=== PATIENT | male | born 1960 | race Caucasian/White ===

== ENCOUNTER → 2016-12-18 | Outpatient (CLI) | payer OTHER, BC ==
[~2016-12-18] MED LIST: ASPI81TA28 PO; ATOR10TA88 PO; CALCIUM + D600 M1 PO; CHOL100010 PO; DLD2 PO; HYD10 PO; LANS30CA63 PO; LEVO50TA PO; LRS20 PO; METH750T PO; MIDO2.5T2 PO; MRLP17 PO; PRD/1 PO; PREG150C PO; SERT-234 PO; SPIR25TA PO; SULF800T23 PO; SYN175 PO; TESTOSTERONE 1% TOP; ZOLP10TA PO
--- NOTE | 2016-12-18 16:04 | DIAGNOSTIC IMAGING REPORT ---
BONE SCAN 3PHASE WHOLE BODY CLINICAL HISTORY: R HIP PAIN pain TECHNIQUE: Is examination is performed following the administration of 20.5 mCi technetium 99m MDP. COMPARISON STUDY: 05/28/2006 FINDINGS: Moderate degenerative activity throughout the entire thoracolumbar region. This is diminished compared to the prior study consistent with normal evolutionary change in a postoperative basis. Activity characteristics of the axial and appendicular skeleton are otherwise unremarkable. No abnormal activity characteristics are identified within the hip regions. There are no abnormal soft tissue activity characteristics. IMPRESSION: 1. No abnormal activity characteristics of the hips. 2. Improving postoperative activity of the thoracolumbar spine. The above report was generated using voice recognition software. It may contain grammatical, syntax or spelling errors. Electronically signed by: Josh Martino M.D. 12/18/2016 4:03 PM Dictated Date/Time: 12/18/2016 4:00 PM
== END | disposition home or self-care (01) ==
LOC: C.NUCL 11:39
DX: M25.551 Pain in right hip (principal)

== ENCOUNTER → 2017-05-18 | Outpatient (CLI) | payer OTHER, BC ==
[~2017-05-18] MED LIST changes: +ATOR10TA82 PO; -ATOR10TA88 PO
== END | disposition home or self-care (01) ==
LOC: C.LAB 12:17
DX: R50.9 Fever, unspecified (principal)

== ENCOUNTER 2017-05-21 13:03 | Inpatient (IN) | payer OTHER, BC ==
[~2017-05-21] VITALS: Ht 175.3 cm; Wt 123.6 kg
--- NOTE | 2017-05-21 13:51 | EMERGENCY ROOM VISIT NOTE ---
History First contact with patient: 13:13 Chief Complaint: WEAKNESS Stated Complaint: FLU,DEHYDRATED,TROUBLE BREATHING Nursing Triage Summary: see triage note History of Present Illness 56 year old male with hx of pituitary dysfunction s/p pituitary tumor removal presents to the ED with flu like symptoms x 6 days. Complaining of generalized weakness, diarrhea, occasionally productive cough and sob. Associated with fever (102), chills, decreased appetite and sleep, increased thirst, PITTS/ dizziness. Diarrhea has been loose/watery, non-bloody (5 episodes since yesterday). Denies cp, abdominal pain, n/v, constipation, dysuria, vision changes, focal neurologic deficits. Reports increasing prednisone and hydrocortisone dosage to stress dosage which did not help. He also went to see his PCP on Thursday. Flu swab was done which was negative for influenza A & B but he was started on Tamiflu, Levofloxacin 500mg x 10 days, Prednisone 20mg taper course and albuterol neb. Review of Systems see below Constitutional: + fever, + chills, + weakness Eyes: No worsening of vision ENT: No sore throat Respiratory: + cough, + sputum, + shortness of breath Cardiovascular: No chest pain Abdomen: + diarrhea, No pain, No nausea, No vomiting, No constipation Genitourinary - Male: No dysuria Neurologic: + problem reported (PITTS/dizziness), No weakness, No numbness/ tingling Past Medical/Surgical History Medical Problems: (1) Back pain (2) [place]'s disease (3) Pituitary tumor (4) Pneumonia Social History Smoking Status: Never Smoker Marital Status: Occupation Status: unemployed Current/Historical Medications Scheduled Aspirin (Aspirin Ec), 81 MG PO QPM Atorvastatin (Lipitor), 20 MG PO HS Baclofen (Baclofen), 20 MG PO QID Cholecalciferol (Vitamin D3), 1,000 UNITS PO DAILY Hydrocortisone (Cortef), 5 MG PO BID Lansoprazole (Prevacid), 30 MG PO QPM Levofloxacin (Levaquin), 500 MG PO DAILY Levothyroxine Sodium (Synthroid), 50 MCG PO QAM Levothyroxine Sodium (Synthroid), 175 MCG PO DAILY Liothyronine Sodium (Liothyronine Sodium), 5 MCG PO BID Methocarbamol (Robaxin), 750 MG PO QID Metoprolol Tartrate (Lopressor) (Lopressor), 25 MG PO TID Midodrine (Midodrine HCl), 10 MG PO BID Oseltamivir Phosphate (Tamiflu), 75 MG PO BID Prednisone (Prednisone), 3 MG PO QPM Prednisone (Prednisone), 20 MG PO DIRECTED Pregabalin (Lyrica), 150 MG PO BID Sertraline (Zoloft), 100 MG PO TID Spironolactone (Aldactone), 25 MG PO BID Sulfamethoxazole-Trimethoprim (Bactrim Ds 800MG/160MG), 1 TAB PO BID Zolpidem Tartrate (Ambien), 10 MG PO HS Scheduled PRN Albuterol Sulf (Albuterol Sulfate), 2.5 MG INH Q4H PRN for SOB/Wheezing Hydromorphone Hcl (Dilaudid), 4-8 MG PO Q2H PRN for Pain Polyethylene Glycol 3350 (Miralax), 17 GM PO DAILY PRN for Constipation Physical Exam Vital Signs Date Time Temp Pulse Resp B/P (MAP) Pulse Ox O2 Delivery O2 Flow Rate FiO2 05/21/17 13:06 36.4 71 16 123/72 92 Room Air Physical Exam see below General Appearance: + obese, + pertinent finding (fatigued) Head: normocephalic, atraumatic Eyes: normal inspection ENT: pharynx normal Neck: supple, no adenopathy Respiratory/Chest: normal breath sounds, + wheezing (expiratory wheezing) Cardiovascular: regular rate, rhythm, no murmur Abdomen / GI: normal bowel sounds, non tender, soft Back: + pertinent finding (surgical scar) Extremities: normal inspection, + slow capillary refill Neurologic/Psych: top edge beveler II-XII nml as tested, no motor/sensory deficits Medical Decision & Procedures Laboratory Results 05/21/17 13:40 Red Blood Count 4.96, Mean Corpuscular Volume 91.9, Mean Corpuscular Hemoglobin 30.6, Mean Corpuscular Hemoglobin Concent 33.3, Mean Platelet Volume 10.3, Neutrophils (%) (Auto) 88.1, Lymphocytes (%) (Auto) 6.4, Monocytes (%) (Auto) 3.7, Eosinophils (%) (Auto) 0.1, Basophils (%) (Auto) 0.2, Neutrophils # (Auto) 8.89, Lymphocytes # (Auto) 0.65, Monocytes # (Auto) 0.37, Eosinophils # (Auto) 0.01, Basophils # (Auto) 0.02 05/21/17 13:40 Test 05/21/17 13:40 05/21/17 14:00 05/21/17 14:04 White Blood Count 10.09 K/uL (4.8-10.8) Red Blood Count 4.96 M/uL (4.7-6.1) Hemoglobin 15.2 g/dL (14.0-18.0) Hematocrit 45.6 % (42-52) Mean Corpuscular Volume 91.9 fL (80-100) Mean Corpuscular Hemoglobin 30.6 pg (25-34) Mean Corpuscular Hemoglobin Concent 33.3 g/dl (32-36) Platelet Count 155 K/uL (130-400) Mean Platelet Volume 10.3 fL (7.4-10.4) Neutrophils (%) (Auto) 88.1 % Lymphocytes (%) (Auto) 6.4 % Monocytes (%) (Auto) 3.7 % Eosinophils (%) (Auto) 0.1 % Basophils (%) (Auto) 0.2 % Neutrophils # (Auto) 8.89 K/uL (1.4-6.5) Lymphocytes # (Auto) 0.65 K/uL (1.2-3.4) Monocytes # (Auto) 0.37 K/uL (0.11-0.59) Eosinophils # (Auto) 0.01 K/uL (0-0.5) Basophils # (Auto) 0.02 K/uL (0-0.2) RDW Standard Deviation 53.5 fL (36.4-46.3) RDW Coefficient of Variation 16.0 % (11.5-14.5) Immature Granulocyte % (Auto) 1.5 % Immature Granulocyte # (Auto) 0.15 K/uL (0.00-0.02) Anion Gap 11.0 mmol/L (3-11) Estimated GFR () 109.5 Estimated GFR (Non- 94.5 BUN/Creatinine Ratio 8.6 (10-20) Calcium Level 9.3 mg/dl (8.5-10.1) Total Bilirubin 0.7 mg/dl (0.2-1) Direct Bilirubin 0.1 mg/dl (0-0.2) Aspartate Amino Transf (AST/SGOT) 39 U/L (15-37) Alanine Aminotransferase (ALT/SGPT) 44 U/L (12-78) Alkaline Phosphatase 89 U/L (45-117) Troponin I < 0.015 ng/ml (0-0.045) Total Protein 7.2 gm/dl (6.4-8.2) Albumin 3.0 gm/dl (3.4-5.0) Lipase 247 U/L (73-393) Influenza Type A Antigen Neg for Influ A (NEG) Influenza Type B Antigen Neg for Influ B (NEG) Lactic Acid Level 1.7 mmol/L (0.4-2.0) Medications Administered Medications (Trade) Dose Ordered Sig/Efrain Route Start Time Stop Time Status Last Admin Dose Admin Levofloxacin (Levaquin / D5W) 750 mg NOW STAT IV 05/21/17 14:48 05/21/17 14:49 DC 05/21/17 15:18 750 MG Sodium Chloride 1,000 ml @ 999 mls/hr Q1H1M STAT IV 05/21/17 14:53 05/21/17 15:53 DC 05/21/17 15:19 999 MLS/HR Cefepime HCl 1000 mg/Dextrose 111 ml @ 200 mls/hr NOW STAT IV 05/21/17 14:57 05/21/17 15:30 DC 05/21/17 15:18 200 MLS/HR ED Course CXR: multifocal pneumonia, cardiomegaly EKG: NSR 64 Tropnin: neg <0.015 CMP: mildly elevated AST of 39 and mild hypokalemia 135 Lipase: normal CBC: L shift with normal WBC of 10.09 Lactic acid: 1.7 Given NS bolus 1L for dehydration Given a dose of Levofloxacin IV Admitted: Given multi-focal pneumonia in the setting of pituitary insufficiency on chronic steroids and significant generalized weakness/dehydration, admitted to the inpatient team for further care. Medical Decision 56y/oM with hx of pituitary dysfunction s/p pituitary tumor removal, chronic back pain and depression with 6 days of cold symptoms, weakness and diarrhea with normal vitals consistent with likely viral URI vs. viral gastroenteritis vs. dehydration vs. pneumonia vs. UTI vs. [place] -Ordered CXR, UA/UCx, EKG, Troponin, Influenza A/B antigen, CBC w/t diff, BMP, liver profile, lipase and lactic acid -Normal saline 1L bolus -Will follow up on test results and manage as indicated Impression Primary Impression: Pneumonia Departure Information Referrals Isaac Crenshaw Jr,D.O. (PCP) Patient Instructions My [facility]
--- NOTE | 2017-05-21 14:04 | DIAGNOSTIC IMAGING REPORT ---
CHEST ONE VIEW PORTABLE CLINICAL HISTORY: 56 years-old Male presenting with cough . TECHNIQUE: Portable upright AP view of the chest was obtained. COMPARISON: 12/26/2013. FINDINGS: Cardiac silhouette enlarged, slightly more prominent than on the prior exam likely due to AP technique. Interval development of patchy opacities primarily in the left lung though also minimally in the right mid to lung base. No large pleural effusion or pneumothorax. Surgical clips project over the right axilla. Extensive thoracolumbar posterior fusion. Kyphoplasty changes may also be present. Multiple left posterior lateral rib fractures are now evident, new from prior. Some demonstrate periosteal reaction suggesting subacute injuries. Upper abdomen normal. IMPRESSION: 1. Cardiomegaly. 2. Patchy bilateral pulmonary opacities, left greater than right. This is most concerning for multifocal pneumonia with less likely diagnostic considerations including pulmonary contusion or edema. 3. Multiple posterior lateral left rib fractures, which may be subacute. Correlate for point tenderness and clinical history. Electronically signed by: Bradly Ryan M.D. 05/21/2017 2:03 PM Dictated Date/Time: 05/21/2017 2:00 PM
[2017-05-21 14:09] LABS: BASO % 0.2 %; BASO ABS # 0.02 K/uL (0-0.2); EOS % 0.1 %; EOS ABS # 0.01 K/uL (0-0.5); HEMATOCRIT 45.6 % (42-52); HEMOGLOBIN 15.2 g/dL (14.0-18.0); IG# 0.15 K/uL (0.00-0.02); LYMPH % 6.4 %; LYMPH ABS # 0.65 K/uL (1.2-3.4); MEAN CELL VOLUME 91.9 fL (80-100); MEAN CORPUSCULAR HEMOGLOBIN 30.6 pg (25-34); MEAN CORPUSCULAR HGB CONC 33.3 g/dl (32-36); MEAN PLATELET VOLUME 10.3 fL (7.4-10.4); MONO % 3.7 %; MONO ABS # 0.37 K/uL (0.11-0.59); NEUT % 88.1 %; NEUT ABS # 8.89 K/uL (1.4-6.5); PLATELET COUNT 155 K/uL (130-400); RED CELL DISTRIBUTION WIDTH SD 53.5 fL (36.4-46.3); WHITE BLOOD COUNT 10.09 K/uL (4.8-10.8)
[2017-05-21 14:24] LABS: ALT/SGPT 44 U/L (12-78); AST/SGOT 39 U/L (15-37); BLOOD UREA NITROGEN 8 mg/dl (7-18); CALCIUM 9.3 mg/dl (8.5-10.1); CARBON DIOXIDE 22 mmol/L (21-32); GLUCOSE 84 mg/dl (70-99); LIPASE 247 U/L (73-393); POTASSIUM 4.2 mmol/L (3.5-5.1); SODIUM 135 mmol/L (136-145)
[2017-05-21 14:28] LABS: ALKALINE PHOSPHATASE 89 U/L (45-117); TOTAL PROTEIN 7.2 gm/dl (6.4-8.2)
[2017-05-21] MEDS ORDERED: VANCOMYCIN IV 2,750 MG in SODIUM CHLORIDE 0.9% 500ML 500 ML IV ONE (14:30)
[2017-05-21] MEDS ORDERED: LEVAQUIN 750MG / 150ML D5W IV STA (14:48)
[2017-05-21] MEDS ORDERED: SODIUM CHLORIDE 0.9% 1000ML 1,000 ML IV STA (14:53)
[2017-05-21] MEDS ORDERED: CEFEPIME IV 1,000 MG in DEXTROSE 5% 100ML 100 ML IV STA (14:57)
[2017-05-21 15:04] LABS: INFLUENZA B ANTIGEN Neg for Influ B (NEG)
[2017-05-21] MEDS ORDERED: GLUCOSE 10 TABS/TUBE PO PRN (15:30)
[2017-05-21] MEDS ORDERED: GLUCOSE 40% GEL 15 GM TUBE PO PRN (15:30)
[2017-05-21] MEDS ORDERED: DEXTROSE 50% 50 ML SYR IV PRN (15:30)
[2017-05-21] MEDS ORDERED: ALUMINUM/MAGNESIUM/SIMETH (MAALOX MAX) 30 ML UDC PO PRN (15:30)
[2017-05-21] MEDS ORDERED: GLUCAGON FOR INJ 1 MG VIAL SQ PRN (15:30)
[2017-05-21] MEDS ORDERED: MAGNESIUM HYDROXIDE SUSP 30 ML UDC PO PRN (15:30)
[2017-05-21] MEDS ORDERED: POLYETHYLENE (MIRALAX) 17 GM PACK PO PRN (15:30)
[2017-05-21] MEDS ORDERED: VANCOMYCIN IV 0 MG in SODIUM CHLORIDE 0.9% 500ML 500 ML IV SCH ×4 (15:30)
[2017-05-21] MEDS ORDERED: VANCOMYCIN IV SCH (15:30)
[2017-05-21] MEDS ORDERED: SODIUM CHLORIDE 0.9% IV SCH (15:30)
[2017-05-21] MEDS ORDERED: VTMD1000 PO (15:31)
[2017-05-21] MEDS ORDERED: LEVO175T PO (15:31)
[2017-05-21] MEDS ORDERED: OSEL75CA23 PO (15:31)
[2017-05-21] MEDS ORDERED: POLY335019 PO (15:31)
[2017-05-21] MEDS ORDERED: METO25TA56 PO (15:31)
[2017-05-21] MEDS ORDERED: HYDR5TAB PO (15:31)
[2017-05-21] MEDS ORDERED: HYDR4TAB78 PO (15:31)
[2017-05-21] MEDS ORDERED: PRED20TA PO (15:31)
[2017-05-21] MEDS ORDERED: LIOT5TAB9 PO (15:31)
[2017-05-21] MEDS ORDERED: PRMT10 PO (15:31)
[2017-05-21] MEDS ORDERED: LEVO1TAB33 PO (15:31)
[2017-05-21] MEDS ORDERED: LRS20 PO (15:31)
[2017-05-21] MEDS ORDERED: ALBINSX INH (15:31)
[2017-05-21] MEDS ORDERED: ATOR-22 PO (15:31)
[2017-05-21] MEDS ORDERED: VANCOMYCIN CONSULT ACTIVE PRN (15:45)
[2017-05-21] MEDS ORDERED: PATIENT'S HEIGHT AND/OR WEIGHT NEEDED SCH (15:45)
--- NOTE | 2017-05-21 16:43 | EMERGENCY ROOM VISIT NOTE ---
History Report prepared by Scribe: Antonia Mercado Under the Supervision of: Dr. Alen Waggoner D.O. First contact with patient: 13:16 Chief Complaint: WEAKNESS Stated Complaint: FLU,DEHYDRATED,TROUBLE BREATHING Nursing Triage Summary: see triage note History of Present Illness The patient is a 56 year old male who presents to the Emergency Room with complaints of persistent flu like symptoms for the past 6 days. He complains of an occasionally productive cough, post nasal drip, fever, chills, diarrhea, shortness of breath, increased weakness and a headache. Today the patient developed worsening shortness of breath and states he is having trouble breathing. He denies any chest pain. He saw his PCP 4 days ago and states he suspected influenza, but the influenza swab came back negative. He was prescribed Tamiflu, Prednisone and Albuterol. They have provided minimal relief. Pt denies change in vision, chest pain, nausea, vomiting, abdominal pain , pain with urination, and melena. His reports he has a history of a pituitary tumor and back problems. 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 A total of 10 systems reviewed and were otherwise negative. Past Medical & Surgical Medical Problems: (1) Back pain (2) [place]'s disease (3) Pituitary tumor (4) Pneumonia Social History Smoking Status: Never Smoker Smokeless Tobacco Use: No Alcohol Use: none Drug Use: none Marital Status: Housing Status: lives with family Occupation Status: unemployed, disabled Current/Historical Medications Scheduled Aspirin (Aspirin Ec), 81 MG PO QPM Atorvastatin (Lipitor), 20 MG PO HS Baclofen (Baclofen), 20 MG PO QID Cholecalciferol (Vitamin D3), 1,000 UNITS PO DAILY Hydrocortisone (Cortef), 5 MG PO BID Lansoprazole (Prevacid), 30 MG PO QPM Levofloxacin (Levaquin), 500 MG PO DAILY Levothyroxine Sodium (Synthroid), 50 MCG PO QAM Levothyroxine Sodium (Synthroid), 175 MCG PO DAILY Liothyronine Sodium (Liothyronine Sodium), 5 MCG PO BID Methocarbamol (Robaxin), 750 MG PO QID Metoprolol Tartrate (Lopressor) (Lopressor), 25 MG PO TID Midodrine (Midodrine HCl), 10 MG PO BID Oseltamivir Phosphate (Tamiflu), 75 MG PO BID Prednisone (Prednisone), 3 MG PO QPM Prednisone (Prednisone), 20 MG PO DIRECTED Pregabalin (Lyrica), 150 MG PO BID Sertraline (Zoloft), 100 MG PO TID Spironolactone (Aldactone), 25 MG PO BID Sulfamethoxazole-Trimethoprim (Bactrim Ds 800MG/160MG), 1 TAB PO BID Zolpidem Tartrate (Ambien), 10 MG PO HS Scheduled PRN Albuterol Sulf (Albuterol Sulfate), 2.5 MG INH Q4H PRN for SOB/Wheezing Hydromorphone Hcl (Dilaudid), 4-8 MG PO Q2H PRN for Pain Polyethylene Glycol 3350 (Miralax), 17 GM PO DAILY PRN for Constipation Allergies Coded Allergies: Iron Dextran (Verified Allergy, Severe, HIVES, 05/21/17) Cyclobenzaprine (Verified Allergy, Intermediate, N/V, 05/21/17) Physical Exam Vital Signs Date Time Temp Pulse Resp B/P (MAP) Pulse Ox O2 Delivery O2 Flow Rate FiO2 05/21/17 13:06 36.4 71 16 123/72 92 Room Air Physical Exam GENERAL: Laying in bed, alert, disheveled appearing, lethargic EYE EXAM: normal conjunctiva. PERRL and EOM's grossly intact. OROPHARYNX: no exudate, no erythema, lips, buccal mucosa, and tongue normal and mucous membranes are moist NECK: supple, no nuchal rigidity, no adenopathy, non-tender LUNGS: Clear to auscultation. Normal chest wall mechanics HEART: no murmurs, S1 normal and S2 normal ABDOMEN: abdomen soft, non-tender, normo-active bowel sounds, no masses, no rebound or guarding. BACK: Back is symmetrical on inspection and there is no deformity, no midline tenderness, no CVA tenderness. SKIN: no rashes and no bruising UPPER EXTREMITIES: upper extremities are grossly normal. LOWER EXTREMITIES: No pitting edema. NEURO EXAM: Normal sensorium, cranial nerves II-XII intact, normal speech, no weakness of arms, no weakness of legs. Medical Decision & Procedures ER Provider Diagnostic Interpretation: Radiology results as stated below per my review and the radiologist's interpretation: CHEST ONE VIEW PORTABLE CLINICAL HISTORY: 56 years-old Male presenting with cough . TECHNIQUE: Portable upright AP view of the chest was obtained. COMPARISON: 12/26/2013. FINDINGS: Cardiac silhouette enlarged, slightly more prominent than on the prior exam likely due to AP technique. Interval development of patchy opacities primarily in the left lung though also minimally in the right mid to lung base. No large pleural effusion or pneumothorax. Surgical clips project over the right axilla. Extensive thoracolumbar posterior fusion. Kyphoplasty changes may also be present. Multiple left posterior lateral rib fractures are now evident, new from prior. Some demonstrate periosteal reaction suggesting subacute injuries. Upper abdomen normal. IMPRESSION: 1. Cardiomegaly. 2. Patchy bilateral pulmonary opacities, left greater than right. This is most concerning for multifocal pneumonia with less likely diagnostic considerations including pulmonary contusion or edema. 3. Multiple posterior lateral left rib fractures, which may be subacute. Correlate for point tenderness and clinical history. Electronically signed by: Bradly Ryan M.D. 05/21/2017 2:03 PM Laboratory Results 05/21/17 13:40 Red Blood Count 4.96, Mean Corpuscular Volume 91.9, Mean Corpuscular Hemoglobin 30.6, Mean Corpuscular Hemoglobin Concent 33.3, Mean Platelet Volume 10.3, Neutrophils (%) (Auto) 88.1, Lymphocytes (%) (Auto) 6.4, Monocytes (%) (Auto) 3.7, Eosinophils (%) (Auto) 0.1, Basophils (%) (Auto) 0.2, Neutrophils # (Auto) 8.89, Lymphocytes # (Auto) 0.65, Monocytes # (Auto) 0.37, Eosinophils # (Auto) 0.01, Basophils # (Auto) 0.02 05/21/17 13:40 Test 05/21/17 13:40 05/21/17 14:00 05/21/17 14:04 05/21/17 16:00 White Blood Count 10.09 K/uL (4.8-10.8) Red Blood Count 4.96 M/uL (4.7-6.1) Hemoglobin 15.2 g/dL (14.0-18.0) Hematocrit 45.6 % (42-52) Mean Corpuscular Volume 91.9 fL (80-100) Mean Corpuscular Hemoglobin 30.6 pg (25-34) Mean Corpuscular Hemoglobin Concent 33.3 g/dl (32-36) Platelet Count 155 K/uL (130-400) Mean Platelet Volume 10.3 fL (7.4-10.4) Neutrophils (%) (Auto) 88.1 % Lymphocytes (%) (Auto) 6.4 % Monocytes (%) (Auto) 3.7 % Eosinophils (%) (Auto) 0.1 % Basophils (%) (Auto) 0.2 % Neutrophils # (Auto) 8.89 K/uL (1.4-6.5) Lymphocytes # (Auto) 0.65 K/uL (1.2-3.4) Monocytes # (Auto) 0.37 K/uL (0.11-0.59) Eosinophils # (Auto) 0.01 K/uL (0-0.5) Basophils # (Auto) 0.02 K/uL (0-0.2) RDW Standard Deviation 53.5 fL (36.4-46.3) RDW Coefficient of Variation 16.0 % (11.5-14.5) Immature Granulocyte % (Auto) 1.5 % Immature Granulocyte # (Auto) 0.15 K/uL (0.00-0.02) Anion Gap 11.0 mmol/L (3-11) Estimated GFR () 109.5 Estimated GFR (Non- 94.5 BUN/Creatinine Ratio 8.6 (10-20) Calcium Level 9.3 mg/dl (8.5-10.1) Total Bilirubin 0.7 mg/dl (0.2-1) Direct Bilirubin 0.1 mg/dl (0-0.2) Aspartate Amino Transf (AST/SGOT) 39 U/L (15-37) Alanine Aminotransferase (ALT/SGPT) 44 U/L (12-78) Alkaline Phosphatase 89 U/L (45-117) Troponin I < 0.015 ng/ml (0-0.045) Total Protein 7.2 gm/dl (6.4-8.2) Albumin 3.0 gm/dl (3.4-5.0) Lipase 247 U/L (73-393) Procalcitonin 0.57 ng/ml (0-0.5) Influenza Type A Antigen Neg for Influ A (NEG) Influenza Type B Antigen Neg for Influ B (NEG) Lactic Acid Level 1.7 mmol/L (0.4-2.0) Urine Color YELLOW Urine Appearance CLEAR (CLEAR) Urine pH 8.5 (4.5-7.5) Urine Specific [place] 1.010 (1.000-1.030) Urine Protein NEG (NEG) Urine Glucose (UA) NEG (NEG) Urine Ketones TRACE (NEG) Urine Occult Blood NEG (NEG) Urine Nitrite NEG (NEG) Urine Bilirubin NEG (NEG) Urine Urobilinogen NEG (NEG) Urine Leukocyte Esterase NEG (NEG) Urine WBC (Auto) 0 /hpf (0-5) Urine RBC (Auto) 0-4 /hpf (0-4) Urine Hyaline Casts (Auto) 0 /lpf (0-5) Urine Epithelial Cells (Auto) 0-5 /lpf (0-5) Urine Bacteria (Auto) NEG (NEG) Laboratory results per my review. Medications Administered Medications (Trade) Dose Ordered Sig/Efrain Route Start Time Stop Time Status Last Admin Dose Admin Levofloxacin (Levaquin / D5W) 750 mg NOW STAT IV 05/21/17 14:48 05/21/17 14:49 DC 05/21/17 15:18 750 MG Sodium Chloride 1,000 ml @ 999 mls/hr Q1H1M STAT IV 05/21/17 14:53 05/21/17 15:53 DC 05/21/17 15:19 999 MLS/HR Cefepime HCl 1000 mg/Dextrose 111 ml @ 200 mls/hr NOW STAT IV 05/21/17 14:57 05/21/17 15:30 DC 05/21/17 15:18 200 MLS/HR ECG Indication: SOB/dyspnea Rate (beats per minute): 64 Rhythm: sinus rhythm Findings: other (normal axis, poor baseline) ED Course ED COURSE: Vital signs were reviewed and showed the patient is tachycardic The patients medical record was reviewed The above diagnostic studies were performed and reviewed. ED treatments and interventions as stated above. 1339: The patient was evaluated in room B7. A complete history and physical examination was performed. 1448: Levaquin 750 mg IV. 1453: NSS 1000 ml @ 999 mls/hr IV. 1457: Cefepime HCl 1000 mg/Dextrose 111 ml @ 200 mls/hr IV. 1515: I discussed the patients case with Dr. Owens [facility] Hospitalist. The patient will be further evaluated. 1337: Upon reevaluation, the patient is B7.I discussed my findings with the patient and he understands and agrees with the treatment plan. Based on the patients age, coexisting illnesses, exam and lab findings the decision to treat as an inpatient was made. The patient remained stable while under my care. The patient will be evaluated for further management. Medical Decision Differential diagnoses includes but is not limited to pneumonia, bronchitis, COPD/Asthma exacerbation, pneumothorax, pulmonary embolism, congestive heart failure, acute coronary syndrome. Patient is a 56-year-old female who presents to ER for weakness associated with dehydration, fevers, chills, shortness breath diffuse weakness. Vitals were unremarkable. Chest x-ray shows a multilobar pneumonia. Patient was given IV Levaquin and cefepime. Patient was given a bolus normal saline. Patient was seen independently of the resident. CBC all BMP, LFTs, bilirubin and troponin was negative. Lipase is normal. Once was negative. UA was negative. Patient was updated at bedside admits internal medicine for multilobar pneumonia in an immune compromised patient taking steroids. Medication Reconcilliation Current Medication List: was personally reviewed by me Blood Pressure Screening Patient's blood pressure: Normal blood pressure Consults Time Called: 1510 Consulting Physician: Dr. Owens [facility] Hospitalist Returned Call: 1515 I discussed the patients case with Dr. Owens [facility] Hospitalist. The patient will be further evaluated. Impression Primary Impression: Pneumonia Scribe Attestation The scribe's documentation has been prepared under my direction and personally reviewed by me in its entirety. I confirm that the note above accurately reflects all work, treatment, procedures, and medical decision making performed by me. Departure Information Dispostion Being Evaluated By Hospitalist Referrals Isaac Crenshaw Jr,D.O. (PCP) Patient Instructions My [facility] Problem Qualifiers Primary Impression: Pneumonia Pneumonia type: due to unspecified organism Laterality: unspecified laterality Lung location: unspecified part of lung Qualified Codes: J18.9 - Pneumonia, unspecified organism
[2017-05-21 16:55] VITALS: Ht 175.3 cm; Wt 123.6 kg
[2017-05-21] MEDS: SODIUM CHLORIDE 0.9% 1000ML 1,000 ML IV SCH (17:26)
[2017-05-21] MEDS ORDERED: ALBUTEROL 0.083% NEBU SOLN 3 ML VIAL INH PRN (17:30)
[2017-05-21] MEDS ORDERED: NON-FORMULARY MEDICATION (Polyethylene Glycol 3350 (Miralax) 17 GM) PO PRN (17:30)
--- NOTE | 2017-05-21 17:30 | NUR ---
A: Admitted from ED into 286-2. Oriented to room and call casey system. A&Ox4. OOB with assistance. Denies chest pain/SOB. C/o chronic back pain, PO Dilaudid administered. Presents with normal sinus rhythm on monitor. Call casey within reach
[2017-05-21] MEDS ORDERED: HYDROmorphone HCL 2 MG TAB ONE (17:39)
--- NOTE | 2017-05-21 17:50 | History and Physical ---
History & Physical Date & Time of Service: May 21, 2017 at 17:37 Chief Complaint: Pneumonia Primary Care Physician: Isaac Crenshaw Jr,D.O. History of Present Illness Source: patient, partner 66 year old man with past medical history of pituitary resection by a second procedure , gamma knife resection stain has been on hormonal replacement therapy for those steroids. Patient presented to the ED and shortness of breath/fever chills. Patient was given Tamiflu as an outpatient finished 4 days. The is 1 day left. Rapid flu was negative as an outpatient and in ED After the Patient was given levofloxacin only took 1 dose Chest x-ray showed multilobar bilateral pneumonia. Patient said that she is unable to cough up sputum Denies chest pain Denies Smoking or drinking History of heart disease in his father Social History Smoking Status: Never Smoker Smokeless Tobacco Use: No Drug Use: none Marital Status: Housing status: lives with family Occupational Status: unemployed, disabled Immunizations History of Influenza Vaccine: Yes Influenza Vaccine Date: Mar 21, 2008 History of Tetanus Vaccine?: Yes Tetanus Immunization Date: Sep 07, 2004 History of Pneumococcal: Yes Pneumococcal Date: Mar 21, 2008 History of Hepatitis B Vaccine: Yes Multi-Drug Resistant Organisms History of MDRO: Yes Type of MDRO: MRSA Allergies Coded Allergies: Iron Dextran (Verified Allergy, Severe, HIVES, 05/21/17) Cyclobenzaprine (Verified Allergy, Intermediate, N/V, 05/21/17) Home Medications Scheduled Aspirin (Aspirin Ec), 81 MG PO QPM Atorvastatin (Lipitor), 20 MG PO HS Baclofen (Baclofen), 20 MG PO QID Cholecalciferol (Vitamin D3), 1,000 UNITS PO DAILY Hydrocortisone (Cortef), 5 MG PO BID Lansoprazole (Prevacid), 30 MG PO QPM Levofloxacin (Levaquin), 500 MG PO DAILY Levothyroxine Sodium (Synthroid), 50 MCG PO QAM Levothyroxine Sodium (Synthroid), 175 MCG PO DAILY Liothyronine Sodium (Liothyronine Sodium), 5 MCG PO BID Methocarbamol (Robaxin), 750 MG PO QID Metoprolol Tartrate (Lopressor) (Lopressor), 25 MG PO TID Midodrine (Midodrine HCl), 10 MG PO BID Oseltamivir Phosphate (Tamiflu), 75 MG PO BID Prednisone (Prednisone), 3 MG PO QPM Prednisone (Prednisone), 20 MG PO DIRECTED Pregabalin (Lyrica), 150 MG PO BID Sertraline (Zoloft), 100 MG PO TID Spironolactone (Aldactone), 25 MG PO BID Sulfamethoxazole-Trimethoprim (Bactrim Ds 800MG/160MG), 1 TAB PO BID Zolpidem Tartrate (Ambien), 10 MG PO HS Scheduled PRN Albuterol Sulf (Albuterol Sulfate), 2.5 MG INH Q4H PRN for SOB/Wheezing Hydromorphone Hcl (Dilaudid), 4-8 MG PO Q2H PRN for Pain Polyethylene Glycol 3350 (Miralax), 17 GM PO DAILY PRN for Constipation Review of Systems Constitutional: + fever, + chills, + weakness, + fatigue, No sweats, No weight loss, No problem reported Eyes: No worsening of vision, No eye pain, No redness, No discharge, No diplopia, No problem reported ENT: No hearing loss, No unusual epistaxis, No nasal symptoms, No sore throat, No tinnitus, No dental problems, No trouble swallowing, No problem reported Respiratory: + cough, + sputum, + shortness of breath, + dyspnea on exertion, + dyspnea at rest, No wheezing, No hemoptysis, No problem reported Cardiovascular: No chest pain, No orthopnea, No PND, No edema, No claudication , No palpitations, No problem reported Abdomen: No pain, No nausea, No vomiting, No diarrhea, No constipation, No GI bleeding, No problem reported Musculoskeletal: No joint pain, No muscle pain, No swelling, No calf pain, No problem reported Genitourinary - Male: No hematuria, No dysuria, No urinary frequency, No urinary urgency, No urinary hesitancy, No urinary retention, No urinary incontinence, No penile discharge, No lesions, No impotence, No problem reported Neurologic: No memory loss, No paralysis, No weakness, No numbness/tingling, No vertigo, No balance problems, No problem reported Psychiatric: No depression symptoms, No anhedonism, No anxiety, No insomnia, No substance abuse, No problem reported Endocrine: No fatigue, No excessive thirst, No excessive urination, No problem reported Hematologic / Lymphatic: No abnormal bleeding/bruising, No clotting problems, No swollen lymph nodes, No night sweats, No problem reported Integumentary: No rash, No itch, No new/changing skin lesions, No color change , No bleeding, No problem reported Physical Exam Vital Signs Date Time Temp Pulse Resp B/P (MAP) Pulse Ox O2 Delivery O2 Flow Rate FiO2 05/21/17 16:57 36.4 75 18 131/73 94 05/21/17 16:55 Room Air 05/21/17 16:52 75 18 131/73 92 Room Air 05/21/17 13:06 36.4 71 16 123/72 92 Room Air General Appearance: + mild distress, + obese Head: normocephalic, atraumatic Eyes: normal inspection, EOMI ENT: normal ENT inspection, hearing grossly normal, + nasal congestion Neck: supple Respiratory/Chest: chest non-tender, + decreased breath sounds, + accessory muscle use, + crackles Cardiovascular: regular rate, rhythm, no edema, no gallop, no JVD, no murmur, normal peripheral pulses Abdomen/GI: normal bowel sounds, non tender, soft, no organomegaly, no pulsatile mass Back: normal inspection Extremities/Musculoskelatal: normal inspection, no calf tenderness, normal capillary refill, no pedal edema, normal range of motion Neurologic/Psych: gi tech II-XII nml as tested, no motor/sensory deficits, alert, normal mood/affect, normal reflexes, oriented x 3 Skin: normal color, warm/dry, no rash Diagnostics Laboratory Results Results Past 24 Hours Test 05/21/17 13:40 05/21/17 14:00 05/21/17 14:04 05/21/17 16:00 Range/Units White Blood Count 10.09 4.8-10.8 K/uL Red Blood Count 4.96 4.7-6.1 M/uL Hemoglobin 15.2 14.0-18.0 g/dL Hematocrit 45.6 42-52 % Mean Corpuscular Volume 91.9 80-100 fL Mean Corpuscular Hemoglobin 30.6 25-34 pg Mean Corpuscular Hemoglobin Concent 33.3 32-36 g/dl Platelet Count 155 130-400 K/uL Mean Platelet Volume 10.3 7.4-10.4 fL Neutrophils (%) (Auto) 88.1 % Lymphocytes (%) (Auto) 6.4 % Monocytes (%) (Auto) 3.7 % Eosinophils (%) (Auto) 0.1 % Basophils (%) (Auto) 0.2 % Neutrophils # (Auto) 8.89 1.4-6.5 K/uL Lymphocytes # (Auto) 0.65 1.2-3.4 K/uL Monocytes # (Auto) 0.37 0.11-0.59 K/uL Eosinophils # (Auto) 0.01 0-0.5 K/uL Basophils # (Auto) 0.02 0-0.2 K/uL RDW Standard Deviation 53.5 36.4-46.3 fL RDW Coefficient of Variation 16.0 11.5-14.5 % Immature Granulocyte % (Auto) 1.5 % Immature Granulocyte # (Auto) 0.15 0.00-0.02 K/uL Sodium Level 135 136-145 mmol/L Potassium Level 4.2 3.5-5.1 mmol/L Chloride Level 102 98-107 mmol/L Carbon Dioxide Level 22 21-32 mmol/L Anion Gap 11.0 3-11 mmol/L Blood Urea Nitrogen 8 7-18 mg/dl Creatinine 0.90 0.60-1.40 mg/dl Estimated GFR () 109.5 Estimated GFR (Non- 94.5 BUN/Creatinine Ratio 8.6 10-20 Random Glucose 84 70-99 mg/dl Calcium Level 9.3 8.5-10.1 mg/dl Total Bilirubin 0.7 0.2-1 mg/dl Direct Bilirubin 0.1 0-0.2 mg/dl Aspartate Amino Transf (AST/SGOT) 39 15-37 U/L Alanine Aminotransferase (ALT/SGPT) 44 12-78 U/L Alkaline Phosphatase 89 45-117 U/L Troponin I < 0.015 0-0.045 ng/ml Total Protein 7.2 6.4-8.2 gm/dl Albumin 3.0 3.4-5.0 gm/dl Lipase 247 73-393 U/L Procalcitonin 0.57 0-0.5 ng/ml Influenza Type A Antigen Neg for Influ A NEG Influenza Type B Antigen Neg for Influ B NEG Lactic Acid Level 1.7 0.4-2.0 mmol/L Urine Color YELLOW Urine Appearance CLEAR CLEAR Urine pH 8.5 4.5-7.5 Urine Specific [place] 1.010 1.000-1.030 Urine Protein NEG NEG Urine Glucose (UA) NEG NEG Urine Ketones TRACE NEG Urine Occult Blood NEG NEG Urine Nitrite NEG NEG Urine Bilirubin NEG NEG Urine Urobilinogen NEG NEG Urine Leukocyte Esterase NEG NEG Urine WBC (Auto) 0 0-5 /hpf Urine RBC (Auto) 0-4 0-4 /hpf Urine Hyaline Casts (Auto) 0 0-5 /lpf Urine Epithelial Cells (Auto) 0-5 0-5 /lpf Urine Bacteria (Auto) NEG NEG Microbiology Results 05/21/17 Blood Culture, Ordered Pending 05/21/17 Blood Culture, Received Pending Impression Assessment and Plan 56 year male history of pituitary adenoma, status post resection currently on replacement therapy and steroids Presented with cough/fever/shortness of breath Chest x-ray revealed bilateral multilobar pneumonia Assessment Shortness of breath/respiratory distress secondary to bilateral multilobar pneumonia Immunocompromise status History of pituitary adenoma status post resection Chronic steroids use History of osteoporosis/multiple fractures and surgeries History of osteomyelitis Chronic opioid dependence Plan Giving his immunocompromise status we'll treat him aggressively with antibiotics Continue Tamiflu Start him empirically on vancomycin/ceftriaxone/azithromycin Sputum Culture/blood culture Obtain urine Legionella/Legionella sputum culture Obtain mycoplasma IgM Guaifenesin Continue home medications including oral steroids, currently does not appear to require stress does steroids Continue supportive care DVT prophylaxis Patient is full code Plan was discussed with patient and his Advanced Directives Existing Living Will: Yes Existing Power of Ui Lead Developer: Yes Resuscitation Status FULL RESUSCITATION VTE Prophylaxis VTE Risk Assessment Done? Y/N: Yes Risk Level: Moderate Note Total Time: Critical Care 30 - 74 minutes
[2017-05-21] MEDS ORDERED: GUAIFENESIN SUGAR FREE 200 MG/10 ML UDC PO PRN (18:00)
[2017-05-21] MEDS: MIDODRINE 10 MG TAB PO SCH (18:00)
[2017-05-21 19:04] VITALS: BP 148/79; PULSE 65; TEMP 36.9; O2SAT 93
[2017-05-21 19:49] LABS: INR 1.1 (0.9-1.1); PTT PATIENT 27.8 SECONDS (21.0-31.0)
[2017-05-21 20:00] VITALS: O2SAT 93
--- NOTE | 2017-05-21 20:00 | NUR ---
A: Pt alert and oriented. Assessment completed, pt complains of weakness, cough, chronic back pain, and lethargy at this time. Vanco infusing along with IVF as ordered. Medicated as ordered. NSR noted on the monitor. VSS on RA. BSG of 70, OJ, PB and crackers given. Recheck of 88, Dr. Martínez notified. Ordered to hold Insulin. Will spot check through shift. Call casey left within reach, will continue to monitor.
--- NOTE | 2017-05-21 20:49 | Pharmacy Progress Note ---
Pharmacy Antibiotic Consult Date of Service: May 21, 2017. Pharmacy Dosing Scope Pharmacy is consulted to initiate vancomycin IV dosing therapy, order appropriate labs and adjust drug dose/frequency. Subjective The patient is a 56 year old male admitted on May 21, 2017 at 15:27. Objective Height (Feet): 5 Height (Inches): 9.00 Weight (Kilograms): 124.000 Lab Results (24hrs): Test 05/21/17 13:40 05/21/17 14:00 05/21/17 14:04 05/21/17 16:00 White Blood Count 10.09 K/uL (4.8-10.8) Red Blood Count 4.96 M/uL (4.7-6.1) Hemoglobin 15.2 g/dL (14.0-18.0) Hematocrit 45.6 % (42-52) Mean Corpuscular Volume 91.9 fL (80-100) Mean Corpuscular Hemoglobin 30.6 pg (25-34) Mean Corpuscular Hemoglobin Concent 33.3 g/dl (32-36) Platelet Count 155 K/uL (130-400) Mean Platelet Volume 10.3 fL (7.4-10.4) Neutrophils (%) (Auto) 88.1 % Lymphocytes (%) (Auto) 6.4 % Monocytes (%) (Auto) 3.7 % Eosinophils (%) (Auto) 0.1 % Basophils (%) (Auto) 0.2 % Neutrophils # (Auto) 8.89 K/uL (1.4-6.5) Lymphocytes # (Auto) 0.65 K/uL (1.2-3.4) Monocytes # (Auto) 0.37 K/uL (0.11-0.59) Eosinophils # (Auto) 0.01 K/uL (0-0.5) Basophils # (Auto) 0.02 K/uL (0-0.2) RDW Standard Deviation 53.5 fL (36.4-46.3) RDW Coefficient of Variation 16.0 % (11.5-14.5) Immature Granulocyte % (Auto) 1.5 % Immature Granulocyte # (Auto) 0.15 K/uL (0.00-0.02) Prothrombin Time 11.1 SECONDS (9.0-12.0) Prothromb Time International Ratio 1.1 (0.9-1.1) Activated Partial Thromboplast Time 27.8 SECONDS (21.0-31.0) Partial Thromboplastin Ratio 1.1 Sodium Level 135 mmol/L (136-145) Potassium Level 4.2 mmol/L (3.5-5.1) Chloride Level 102 mmol/L (98-107) Carbon Dioxide Level 22 mmol/L (21-32) Anion Gap 11.0 mmol/L (3-11) Blood Urea Nitrogen 8 mg/dl (7-18) Creatinine 0.90 mg/dl (0.60-1.40) Estimated GFR () 109.5 Estimated GFR (Non- 94.5 BUN/Creatinine Ratio 8.6 (10-20) Random Glucose 84 mg/dl (70-99) Calcium Level 9.3 mg/dl (8.5-10.1) Total Bilirubin 0.7 mg/dl (0.2-1) Direct Bilirubin 0.1 mg/dl (0-0.2) Aspartate Amino Transf (AST/SGOT) 39 U/L (15-37) Alanine Aminotransferase (ALT/SGPT) 44 U/L (12-78) Alkaline Phosphatase 89 U/L (45-117) Troponin I < 0.015 ng/ml (0-0.045) Total Protein 7.2 gm/dl (6.4-8.2) Albumin 3.0 gm/dl (3.4-5.0) Lipase 247 U/L (73-393) Procalcitonin 0.57 ng/ml (0-0.5) Influenza Type A Antigen Neg for Influ A (NEG) Influenza Type B Antigen Neg for Influ B (NEG) Lactic Acid Level 1.7 mmol/L (0.4-2.0) Urine Color YELLOW Urine Appearance CLEAR (CLEAR) Urine pH 8.5 (4.5-7.5) Urine Specific [place] 1.010 (1.000-1.030) Urine Protein NEG (NEG) Urine Glucose (UA) NEG (NEG) Urine Ketones TRACE (NEG) Urine Occult Blood NEG (NEG) Urine Nitrite NEG (NEG) Urine Bilirubin NEG (NEG) Urine Urobilinogen NEG (NEG) Urine Leukocyte Esterase NEG (NEG) Urine WBC (Auto) 0 /hpf (0-5) Urine RBC (Auto) 0-4 /hpf (0-4) Urine Hyaline Casts (Auto) 0 /lpf (0-5) Urine Epithelial Cells (Auto) 0-5 /lpf (0-5) Urine Bacteria (Auto) NEG (NEG) Assessment & Plan Patient started on vancomycin for possible pneumonia. BC x 2 are pending. Vancomycin: * LD of vancomycin 2750 mg x 1 (~22mg/kg) * Will start MD of vancomycin 1750 mg iv q 12 hrs to achieve an estimated trough ~15-20 mcg/ml (goal for pneumonia) * Will order trough prior to the 0400 dose on 05/23 to ensure therapeutic (note , this will be before steady state, however patient with elevated BMI therefore may be at risk for accumulation) * Estimated kinetics: t1/2~9 hrs, ke~0.079 hr-1, CrCl ~90 ml/min Pharmacy will continue to follow and will adjust dose/frequency as necessary. Thank you
[2017-05-21] MEDS: INSULIN ASPART 100 UNITS/ML 3 ML PEN SC SCH (21:00)
[2017-05-21] MEDS ORDERED: OSELTAMIVIR PHOSPHATE 75 MG CAP PO SCH (21:00)
[2017-05-21] MEDS ORDERED: INFLUENZA ADMINISTRATION CHARGE ONE (21:15)
[2017-05-21] MEDS ORDERED: INFLUENZA VIRUS QUAD VACCINE 0.5 ML SYR IM. ONE (21:15)
[2017-05-21] MEDS: LIOTHYRONINE SODIUM 5 MCG TAB PO SCH (21:25)
[2017-05-21] MEDS: METHOCARBAMOL 750 MG TAB PO SCH (21:25)
[2017-05-21] MEDS: SERTRALINE HCL 50 MG TAB PO SCH (21:26)
[2017-05-21] MEDS: PANTOprazole SOD 40 MG TAB PO SCH (21:26)
[2017-05-21] MEDS: OSELTAMIVIR PHOSPHATE 75 MG CAP PO SCH (21:27)
[2017-05-21] MEDS: HYDROCORTISONE 10 MG TAB PO SCH (21:27)
[2017-05-21] MEDS: ASPIRIN 81 MG ECTAB PO SCH (21:28)
[2017-05-21] MEDS: BACLOFEN TAB 20 MG TAB PO SCH (21:28)
[2017-05-21] MEDS: ATORVASTATIN 20 MG TAB PO SCH (21:28)
[2017-05-21] MEDS: METOPROLOL TARTRATE 25 MG TAB PO SCH (21:29)
[2017-05-21] MEDS: ZOLPIDEM TARTRATE 10 MG TAB PO SCH (21:31)
[2017-05-21] MEDS: PREGABALIN 150 MG CAP PO SCH (21:35)
[2017-05-21] MEDS: ENOXAPARIN 40 MG/0.4 ML SYR SC SCH (22:29)
[2017-05-21] MEDS: HYDROmorphone HCL 2 MG TAB PO PRN (22:30)
[2017-05-21] MEDS: CEFEPIME IV 2,000 MG in SYRINGE 7.5 ML IV SCH (22:38)
[2017-05-21] MEDS ORDERED: CEFEPIME IV 2,000 MG in SYRINGE 7.5 ML IV SCH (23:00)
[2017-05-21 23:30] VITALS: BP 147/75; PULSE 77; TEMP 37; O2SAT 88
[2017-05-22] VITALS (9 sets, daily range): BP systolic 116–144; BP diastolic 68–77; PULSE 51–65; TEMP 36.5–36.7; O2SAT 91–96
--- NOTE | 2017-05-22 | NUR ---
A: Pt alert and oriented x4. Monitoring BSGs PRN. Assessment unchanged, pain controlled at this time. Placed on 2L O2 d/t O2 88% on RA. IVF continue to infuse. Contact precautions in place. Receiving intermittent antibiotics. NSR noted on the monitor. Will continue to monitor.
[2017-05-22] MEDS: ACETAMINOPHEN 325 MG TAB PO PRN ×3 (02:29→12:44)
[2017-05-22] MEDS: VANCOMYCIN IV 1,750 MG in SODIUM CHLORIDE 0.9% 500ML 500 ML IV SCH ×2 (02:29→16:03)
[2017-05-22] MEDS ORDERED: COUGH DROP (SUGAR FREE) LOZ 24 LOZ/1 BOX PO PRN (02:45)
--- NOTE | 2017-05-22 04:00 | NUR ---
A: Pt alert and oriented. Resting in bed. Assessment completed, complains of headache and chronic back pain. Pt given PRN Tylenol. Will reassess as directed. IVF infusing as ordered, along with intermittent IV antibiotics. VSS on 2L O2. NSR noted on the monitor with no tele events noted. MRSA swab and Urine sent to lab for testing. Call casey left within reach of pt, rings appropriately for assistance.
[2017-05-22] MEDS: SODIUM CHLORIDE 0.9% 1000ML 1,000 ML IV SCH ×2 (04:18→17:58)
[2017-05-22 05:55] LABS: BASO % 0.1 %; BASO ABS # 0.01 K/uL (0-0.2); EOS % 0.3 %; EOS ABS # 0.03 K/uL (0-0.5); HEMATOCRIT 42.5 % (42-52); IG# 0.28 K/uL (0.00-0.02); LYMPH % 10.1 %; LYMPH ABS # 1.07 K/uL (1.2-3.4); MEAN CORPUSCULAR HEMOGLOBIN 30.3 pg (25-34); MEAN CORPUSCULAR HGB CONC 32.9 g/dl (32-36); MEAN PLATELET VOLUME 9.8 fL (7.4-10.4); MONO % 5.6 %; NEUT % 81.3 %; NEUT ABS # 8.64 K/uL (1.4-6.5); PLATELET COUNT 134 K/uL (130-400); RED CELL DISTRIBUTION WIDTH SD 53.6 fL (36.4-46.3); WHITE BLOOD COUNT 10.63 K/uL (4.8-10.8)
[2017-05-22] MEDS: INSULIN ASPART 100 UNITS/ML 3 ML PEN SC SCH ×4 (06:30→20:53)
[2017-05-22 06:32] LABS: ALBUMIN 2.5 gm/dl (3.4-5.0); CALCIUM 8.5 mg/dl (8.5-10.1); CREATININE 0.69 mg/dl (0.60-1.40)
[2017-05-22] MEDS: LEVOTHYROXINE 175 MCG TAB PO SCH (06:33)
[2017-05-22] MEDS: LEVOTHYROXINE 50 MCG TAB PO SCH (06:33)
[2017-05-22 06:53] LABS: HEMOGLOBIN A1C 5.4 % (4.5-5.6)
[2017-05-22] MEDS: CEFEPIME IV 2,000 MG in SYRINGE 7.5 ML IV SCH ×3 (07:00→22:45)
[2017-05-22] MEDS: METHOCARBAMOL 750 MG TAB PO SCH ×4 (07:51→20:51)
[2017-05-22] MEDS: PREGABALIN 150 MG CAP PO SCH ×2 (07:52→20:55)
[2017-05-22] MEDS: HYDROmorphone HCL 2 MG TAB PO PRN ×3 (07:52→20:56)
[2017-05-22] MEDS: MIDODRINE 10 MG TAB PO SCH ×2 (07:52→18:00)
[2017-05-22] MEDS: METOPROLOL TARTRATE 25 MG TAB PO SCH ×3 (07:53→20:49)
[2017-05-22] MEDS: BACLOFEN TAB 20 MG TAB PO SCH ×4 (07:53→20:52)
[2017-05-22] MEDS: OSELTAMIVIR PHOSPHATE 75 MG CAP PO SCH ×2 (07:54→20:50)
[2017-05-22] MEDS: LACTOBACILLUS ACIDOPHILUS 1 GM PACK PO SCH ×3 (07:54→18:00)
[2017-05-22] MEDS: LIOTHYRONINE SODIUM 5 MCG TAB PO SCH ×2 (07:54→20:50)
[2017-05-22] MEDS: HYDROCORTISONE 10 MG TAB PO SCH ×2 (07:55→20:52)
[2017-05-22] MEDS: SERTRALINE HCL 50 MG TAB PO SCH ×2 (07:56→20:49)
--- NOTE | 2017-05-22 08:00 | NUR ---
A: Pt is A&O x4. VSS on 2L nasal cannula. Denies chest pain. C/O SOB with movement. Pt tolerating diet with poor appetite. Pt is resting in bed. NSR on monitor. NSS infusing per order. Q1H rounding. Call casey within reach. Will continue to monitor.
[2017-05-22] MEDS: AZITHROMYCIN IV 500 MG in DEXTROSE 5% 250ML 250 ML IV SCH (09:24)
--- NOTE | 2017-05-22 12:00 | NUR ---
A: Assessment unchanged. Q1H rounding. Call casey within reach. Will continue to monitor.
--- NOTE | 2017-05-22 16:00 | NUR ---
A: Assessment unchanged. Q1H rounding. Call casey within reach. Will continue to monitor.
--- NOTE | 2017-05-22 18:13 | Hospitalist Progress Note ---
Hospitalist Progress Note Date of Service May 22, 2017. (Ciera Burciaga PA-C) Subjective Pt evaluation today including: conversation w/ patient, physical exam, chart review, lab review, review of studies, review of inpatient medication list Patient seen and evaluated. No acute events overnight. Has been NSR and sinus jeffrey on monitor in 50-60s. Patient looks acutely ill but non-toxic. Reporting not feeling well and not much improvement. Is experiencing a productive cough but having difficulty getting a good amount of sputum for samples. Reporting overall poor appetite but trying to eat. Complete Tamiflu today. Constitutional: + fatigue, No fever, No chills ENT: + sore throat, No nasal symptoms Respiratory: + cough, + sputum, + dyspnea on exertion, No dyspnea at rest Cardiovascular: No chest pain Abdomen: No pain, No nausea, No vomiting, No diarrhea, No constipation Musculoskeletal: No swelling, No calf pain (Ciera Burciaga, JULIOC) Medications Current Inpatient Medications Medications (Trade) Dose Ordered Sig/Efrain Route Start Time Stop Time Status Last Admin Dose Admin Vancomycin HCl (Consult) 1 ea UD PRN N/A 05/21/17 15:45 06/20/17 15:44 Enoxaparin Sodium (Lovenox Inj) 40 mg Q24H SC 05/21/17 20:00 06/20/17 19:59 05/21/17 22:29 40 MG Sodium Chloride 1,000 ml @ 75 mls/hr [id number] IV 05/21/17 15:18 06/20/17 15:17 05/22/17 04:18 75 MLS/HR Acetaminophen (Tylenol Tab) 650 mg Q4H PRN PO 05/21/17 15:30 06/20/17 15:29 05/22/17 12:44 650 MG Al Hydrox/Mg Hydrox/Simethicone (Maalox Max Susp) 15 ml Q4H PRN PO 05/21/17 15:30 06/20/17 15:29 Magnesium Hydroxide (Milk Of Magnesia Susp) 30 ml Q12H PRN PO 05/21/17 15:30 06/20/17 15:29 Zolpidem Tartrate (Ambien Tab) 5 mg HSZ PRN PO 05/21/17 15:30 06/20/17 15:29 Polyethylene (Miralax Powder Packet) 17 gm DAILY PRN PO 05/21/17 15:30 06/20/17 15:29 Insulin Aspart (novoLOG ASPART) SLIDING SCALE If C... ACHS SC 05/21/17 21:00 06/20/17 20:59 05/22/17 12:40 4 UNITS Glucose (Glucose 40% Gel) 15-30 GRAMS 15 GRAMS... UD PRN PO 05/21/17 15:30 06/20/17 15:29 Glucose (Glucose Chew Tab) 4-8 Tablets 4 Tabl... UD PRN PO 05/21/17 15:30 06/20/17 15:29 Dextrose (Dextrose 50% 50ML Syringe) 25-50ML OF 50% DW IV FOR... UD PRN IV 05/21/17 15:30 06/20/17 15:29 Glucagon (Glucagon Inj) 1 mg UD PRN SQ 05/21/17 15:30 06/20/17 15:29 Azithromycin 500 mg/Dextrose 255 ml @ 125 mls/hr DAILY IV 05/22/17 09:00 05/29/17 08:59 05/22/17 09:24 125 MLS/HR Oseltamivir Phosphate (Tamiflu Cap) 75 mg BID PO 05/21/17 21:00 05/23/17 09:00 05/22/17 07:54 75 MG Albuterol Sulfate (Ventolin 0.083% 2.5MG/3ML Neb) 2.5 mg Q4H PRN INH 05/21/17 17:30 06/20/17 17:29 Aspirin (Ecotrin Tab) 81 mg QPM PO 05/21/17 21:00 06/20/17 20:59 05/21/17 21:28 81 MG Atorvastatin Calcium (Lipitor Tab) 20 mg HS PO 05/21/17 21:00 06/20/17 20:59 05/21/17 21:28 20 MG Baclofen (Lioresal Tab) 20 mg QID PO 05/21/17 21:00 06/20/17 20:59 05/22/17 12:38 20 MG Hydrocortisone (Cortef Tab) 5 mg BID PO 05/21/17 21:00 06/20/17 20:59 05/22/17 07:55 5 MG Hydromorphone HCl (Dilaudid Tab) 6 mg Q2H PRN PO 05/21/17 17:30 06/04/17 17:29 05/22/17 16:14 6 MG Levothyroxine Sodium (Synthroid Tab) 175 mcg DAILYBB PO 05/22/17 06:30 06/21/17 06:29 05/22/17 06:33 175 MCG Liothyronine Sodium (Cytomel Tab) 5 mcg BID PO 05/21/17 21:00 06/20/17 20:59 05/22/17 07:54 5 MCG Methocarbamol (Robaxin Tab) 750 mg QID PO 05/21/17 21:00 06/20/17 20:59 05/22/17 12:38 750 MG Metoprolol Tartrate (Lopressor Tab) 25 mg TID PO 05/21/17 21:00 06/20/17 20:59 05/22/17 12:38 25 MG Midodrine (Proamatine Tab) 10 mg BID@1100,1800 PO 05/21/17 18:00 06/20/17 17:59 05/22/17 07:52 10 MG Prednisone (PredniSONE TAB) 20 mg DAILY PO 05/22/17 09:00 06/21/17 08:59 05/22/17 07:56 20 MG Prednisone (PredniSONE TAB) 3 mg QPM PO 05/21/17 21:00 06/20/17 20:59 05/21/17 21:26 3 MG Pregabalin (Lyrica Cap) 150 mg BID PO 05/21/17 21:00 06/20/17 20:59 05/22/17 07:52 150 MG Sertraline HCl (Zoloft Tab) 50 mg BID PO 05/21/17 21:00 06/20/17 20:59 05/22/17 07:56 50 MG Zolpidem Tartrate (Ambien Tab) 10 mg HS PO 05/21/17 21:00 06/20/17 20:59 05/21/17 21:31 10 MG Pantoprazole Sodium (Protonix Tab) 40 mg QPM PO 05/21/17 21:00 06/20/17 20:59 05/21/17 21:26 40 MG Lactobacillus Acidophilus (Lactinex Granules Pack) 1 gm TIDM PO 05/22/17 08:00 06/21/17 07:59 12/22/17 12:38 1 GM Guaifenesin (Robitussin Sugar Free Syrup) 200 mg Q6H PRN PO 05/21/17 18:00 06/20/17 17:59 05/21/17 21:31 200 MG Levothyroxine Sodium (Synthroid Tab) 50 mcg DAILYBB PO 05/22/17 06:30 06/21/17 06:29 05/22/17 06:33 50 MCG Cefepime HCl 2000 mg/Syringe 20 ml @ 5 mls/min Q8H IV 05/21/17 23:00 05/28/17 22:59 05/22/17 16:03 5 MLS/MIN Vancomycin HCl 1750 mg/Sodium Chloride 535 ml @ 200 mls/hr Q12H IV 05/22/17 04:00 05/29/17 03:59 05/22/17 16:03 200 MLS/HR Miscellaneous Information (Order Awaiting Action) 1 ea QS N/A 05/21/17 22:30 06/20/17 22:29 Menthol (Nice Dayan) 1 dayan PRN PRN PO 05/22/17 02:45 06/21/17 02:44 (Ciera Burciaga, PA-C) Objective Vital Signs Date Time Temp Pulse Resp B/P (MAP) Pulse Ox O2 Delivery O2 Flow Rate FiO2 05/22/17 15:49 36.6 51 18 125/77 (93) 94 2.0 05/22/17 12:00 Room Air 05/22/17 11:23 36.6 53 18 116/72 (87) 93 2.0 05/22/17 08:00 93 Room Air 05/22/17 07:58 36.5 58 20 126/73 (90) 96 05/22/17 04:45 36.7 65 18 124/73 (90) 94 Nasal Cannula 2.0 05/22/17 04:00 93 Room Air 05/22/17 00:00 93 Room Air 05/21/17 23:30 37.0 77 20 147/75 (99) 88 Room Air 05/21/17 20:00 93 Room Air 05/21/17 20:00 93 Room Air 05/21/17 19:04 36.9 65 20 148/79 (102) 93 Room Air (Ciera Burciaga PA-C) Physical Exam General Appearance: WD/WN, no apparent distress Eyes: sclerae normal ENT: hearing grossly normal Neck: supple, no JVD, trachea midline Respiratory/Chest: no respiratory distress, no accessory muscle use, + crackles Cardiovascular: regular rate, rhythm, no gallop, no murmur Abdomen: normal bowel sounds, non tender, soft Extremities: no pedal edema, no calf tenderness Neurologic/Psychiatric: alert, oriented x 3 Skin: normal color, warm/dry (Ceira Burciaga PA-C) Laboratory Results Last 24 Hours Test 05/21/17 20:50 05/21/17 21:34 05/22/17 00:01 05/22/17 02:30 Bedside Glucose 70 mg/dl 88 mg/dl 93 mg/dl Test 05/22/17 04:01 05/22/17 05:11 05/22/17 07:40 05/22/17 10:43 Bedside Glucose 112 mg/dl 91 mg/dl White Blood Count 10.63 K/uL Red Blood Count 4.62 M/uL Hemoglobin 14.0 g/dL Hematocrit 42.5 % Mean Corpuscular Volume 92.0 fL Mean Corpuscular Hemoglobin 30.3 pg Mean Corpuscular Hemoglobin Concent 32.9 g/dl Platelet Count 134 K/uL Mean Platelet Volume 9.8 fL Neutrophils (%) (Auto) 81.3 % Lymphocytes (%) (Auto) 10.1 % Monocytes (%) (Auto) 5.6 % Eosinophils (%) (Auto) 0.3 % Basophils (%) (Auto) 0.1 % Neutrophils # (Auto) 8.64 K/uL Lymphocytes # (Auto) 1.07 K/uL Monocytes # (Auto) 0.60 K/uL Eosinophils # (Auto) 0.03 K/uL Basophils # (Auto) 0.01 K/uL RDW Standard Deviation 53.6 fL RDW Coefficient of Variation 16.0 % Immature Granulocyte % (Auto) 2.6 % Immature Granulocyte # (Auto) 0.28 K/uL Sodium Level 137 mmol/L Potassium Level 4.0 mmol/L Chloride Level 107 mmol/L Carbon Dioxide Level 22 mmol/L Anion Gap 8.0 mmol/L Blood Urea Nitrogen 8 mg/dl Creatinine 0.69 mg/dl Est Creatinine Clear Calc Drug Dose 153.1 ml/min Estimated GFR () 122.1 Estimated GFR (Non- 105.4 BUN/Creatinine Ratio 11.8 Random Glucose 112 mg/dl Estimated Average Glucose 108 mg/dl Hemoglobin A1c 5.4 % Calcium Level 8.5 mg/dl Magnesium Level 1.9 mg/dl Total Bilirubin 0.5 mg/dl Aspartate Amino Transf (AST/SGOT) 71 U/L Alanine Aminotransferase (ALT/SGPT) 39 U/L Alkaline Phosphatase 73 U/L Total Protein 6.0 gm/dl Albumin 2.5 gm/dl Globulin 3.5 gm/dl Albumin/Globulin Ratio 0.7 Test 05/22/17 11:14 05/22/17 16:34 Bedside Glucose 127 mg/dl 97 mg/dl (Ciera Burciaga PA-C) Assessment and Plan 56 year male history of pituitary adenoma, status post resection currently on replacement therapy and steroids Presented with cough/fever/shortness of breath Chest x-ray revealed bilateral multilobar pneumonia Acute Hypoxic Respiratory Failure with Initial Respiratory Distress (RESOLVED) from B/L MultiLobar Pneumonia: - Zithromax 500 mg daily, and cefepime 2 g Q8H, and vancomycin - NSS at 75 mL/hr - Ventolin nebs PRN - Finishes Tamiflu on 05/22 Immunocompromised Status - Chronic Steroid Use: - No hypotension or need for stress dosing at this time - continue to monitor glucose and cover if necessary given steroids and acute illness - Patient was prescribed a tapering of steroids as follows: -- 40 mg 1 more day then 20 mg 4 days then 10 mg 4 days - Continue chronic steroids of 3 mg HS H/O Pituitary Adenoma S/P Resection - Hypothyroidism: - Levothyroxine 225 mcg daily and Cytomel 5 mcg BID H/O Osteoporosis/Multiple Fx - Rib Fx on Current CXR - Chronic Pain: - Baclofen 20 mg QID, methocarbamol 750 mg QID and Dilaudid PRN DVT Prophylaxis: Lovenox 40 mg SC daily Code Status: FULL RESUSCITATION Disposition: Continue IVF and Abx - pending clinical response possible D/C 1-2 days Continued [facility] stay due to: multiple IV medications needed Discharge planning: home (Ciera Burciaga PA-C) I performed a history and physical examination on the patient. I reviewed above note and agree with what is written. During my face to face interaction with the patient, I updated the patient on the plan and answered all of the patient's questions. My exam is below: General Appearance: obese, no apparent distress Neck: supple, no JVD, trachea midline Respiratory/Chest: rhonchi BL, normal breath sounds, no respiratory distress, + accessory muscle use Cardiovascular: regular rate, rhythm, Abdomen: normal bowel sounds, non tender, soft Extremities: no pedal edema, no calf tenderness, Neurologic/Psychiatric: alert, oriented x 3 Skin: normal color, warm/dry (Pelon Solomon M.D.)
[2017-05-22] MEDS: ENOXAPARIN 40 MG/0.4 ML SYR SC SCH (20:48)
[2017-05-22] MEDS: PANTOprazole SOD 40 MG TAB PO SCH (20:49)
[2017-05-22] MEDS: ASPIRIN 81 MG ECTAB PO SCH (20:53)
[2017-05-22] MEDS: ATORVASTATIN 20 MG TAB PO SCH (20:53)
[2017-05-22] MEDS: ZOLPIDEM TARTRATE 5 MG TAB PO PRN (22:50)
[2017-05-22] MEDS: ZOLPIDEM TARTRATE 10 MG TAB PO SCH (22:56)
[2017-05-23] VITALS (11 sets, daily range): BP systolic 123–155; BP diastolic 63–83; PULSE 51–68; TEMP 36.5–37.1; O2SAT 90–95
[2017-05-23] MEDS ORDERED: VANCOMYCIN TROUGH ONE ×2 (03:30→15:30)
[2017-05-23] MEDS: VANCOMYCIN IV 1,750 MG in SODIUM CHLORIDE 0.9% 500ML 500 ML IV SCH ×2 (03:46→15:56)
[2017-05-23 04:22] LABS: CREATININE 0.62 mg/dl (0.60-1.40)
[2017-05-23] MEDS: LEVOTHYROXINE 50 MCG TAB PO SCH (06:15)
[2017-05-23] MEDS: LEVOTHYROXINE 175 MCG TAB PO SCH (06:15)
[2017-05-23] MEDS: HYDROmorphone HCL 2 MG TAB PO PRN ×3 (06:18→23:41)
[2017-05-23] MEDS: INSULIN ASPART 100 UNITS/ML 3 ML PEN SC SCH ×4 (06:30→20:26)
--- NOTE | 2017-05-23 08:00 | NUR ---
A: Pt is A&O x4. VSS on RA. Denies chest pain and SOB. Pt tolerating diet. Pt is resting in bed. NSR on monitor. NSS infusing per order. Q1H rounding. Call casey within reach. Will continue to monitor.
[2017-05-23] MEDS: PREGABALIN 150 MG CAP PO SCH ×2 (08:45→20:21)
[2017-05-23] MEDS: METOPROLOL TARTRATE 25 MG TAB PO SCH ×3 (08:45→20:15)
[2017-05-23] MEDS: HYDROCORTISONE 10 MG TAB PO SCH ×2 (08:48→20:16)
[2017-05-23] MEDS: MIDODRINE 10 MG TAB PO SCH ×2 (08:48→17:12)
[2017-05-23] MEDS: BACLOFEN TAB 20 MG TAB PO SCH ×4 (08:48→20:15)
[2017-05-23] MEDS: OSELTAMIVIR PHOSPHATE 75 MG CAP PO SCH (08:49)
[2017-05-23] MEDS: LACTOBACILLUS ACIDOPHILUS 1 GM PACK PO SCH ×3 (08:49→17:12)
[2017-05-23] MEDS: METHOCARBAMOL 750 MG TAB PO SCH ×4 (08:49→20:17)
[2017-05-23] MEDS: SERTRALINE HCL 50 MG TAB PO SCH ×2 (08:50→20:17)
[2017-05-23] MEDS: LIOTHYRONINE SODIUM 5 MCG TAB PO SCH ×2 (08:50→20:19)
[2017-05-23] MEDS: SODIUM CHLORIDE 0.9% 1000ML 1,000 ML IV SCH ×2 (08:50→20:25)
[2017-05-23] MEDS: CEFEPIME IV 2,000 MG in SYRINGE 7.5 ML IV SCH ×3 (09:01→22:42)
[2017-05-23] MEDS: AZITHROMYCIN IV 500 MG in DEXTROSE 5% 250ML 250 ML IV SCH (09:01)
--- NOTE | 2017-05-23 12:00 | NUR ---
A: Assessment unchanged. Will continue to monitor.
--- NOTE | 2017-05-23 16:00 | NUR ---
A- Patient resting in bed. Assessment completed. Reports back pain of 4 on 0-10 scale. IVF infusing at 75ml/hr. SB on monitor. Call casey within reach. Will continue to monitor.
--- NOTE | 2017-05-23 16:12 | Pharmacy Progress Note ---
Pharmacy Abx Dose Short Note Date of Service May 23, 2017. Assessment & Plan Assessment 56 year old male receiving vancomycin, cefepime, azithromycin for treatment of pneumonia. Day # 3/7 of antimicrobial therapy. Plan Vancomycin trough possibly drawn while dose was running. Will repeat trough. Pharmacy will continue to follow and will adjust dose/frequency as necessary. Thank you.
--- NOTE | 2017-05-23 20:00 | NUR ---
A: PATIENT REMAINS ALERT AND ORIENTED. PAIN CONTROLLED AT THIS TIME. MEDICATED PRN WITH PO DILAUDID. ENCOURAGED TO INCREASE ACTIVITY. NO CHANGES TO POC. WILL CONTINUE TO MONITOR.
[2017-05-23] MEDS: ENOXAPARIN 40 MG/0.4 ML SYR SC SCH (20:15)
[2017-05-23] MEDS: ATORVASTATIN 20 MG TAB PO SCH (20:18)
[2017-05-23] MEDS: ASPIRIN 81 MG ECTAB PO SCH (20:18)
[2017-05-23] MEDS: PANTOprazole SOD 40 MG TAB PO SCH (20:18)
--- NOTE | 2017-05-23 22:47 | Progress Note ---
Subjective Date of Service: May 23, 2017. Subjective Pt evaluation today including: conversation w/ patient, conversation w/ family , physical exam 56 yo male who is here for multilobar PNA. Patient reports feeling better. Just removed oxygen and has been saturating well. Patient denies any cough, sputum, fever, chills. Son is in room and is not happy with care eventhough patient is improving. Son was very rude. I asked patient if he would like to change providers and patient states that he is happy with my care. Review of Systems Constitutional: No fever, No chills Respiratory: No cough, No sputum Cardiac: No chest pain Abdomen: No pain, No nausea Musculoskeletal: + joint pain Heme: No abnormal bleeding/bruising Endo: No fatigue Skin: No rash, No itch All Other Systems: Reviewed and Negative Medications Current Inpatient Medications Medications (Trade) Dose Ordered Sig/Efrain Route Start Time Stop Time Status Last Admin Dose Admin Vancomycin HCl (Consult) 1 ea UD PRN N/A 05/21/17 15:45 06/20/17 15:44 Enoxaparin Sodium (Lovenox Inj) 40 mg Q24H SC 05/21/17 20:00 06/20/17 19:59 05/23/17 20:15 40 MG Sodium Chloride 1,000 ml @ 75 mls/hr [id number] IV 05/21/17 15:18 06/20/17 15:17 05/23/17 20:25 75 MLS/HR Acetaminophen (Tylenol Tab) 650 mg Q4H PRN PO 05/21/17 15:30 06/20/17 15:29 05/22/17 12:44 650 MG Al Hydrox/Mg Hydrox/Simethicone (Maalox Max Susp) 15 ml Q4H PRN PO 05/21/17 15:30 06/20/17 15:29 Magnesium Hydroxide (Milk Of Magnesia Susp) 30 ml Q12H PRN PO 05/21/17 15:30 06/20/17 15:29 Zolpidem Tartrate (Ambien Tab) 5 mg HSZ PRN PO 05/21/17 15:30 06/20/17 15:29 05/23/17 23:40 5 MG Polyethylene (Miralax Powder Packet) 17 gm DAILY PRN PO 05/21/17 15:30 1/20/18 15:29 Insulin Aspart (novoLOG ASPART) SLIDING SCALE If C... ACHS SC 05/21/17 21:00 06/20/17 20:59 05/24/17 08:02 3 UNITS Glucose (Glucose 40% Gel) 15-30 GRAMS 15 GRAMS... UD PRN PO 05/21/17 15:30 06/20/17 15:29 Glucose (Glucose Chew Tab) 4-8 Tablets 4 Tabl... UD PRN PO 05/21/17 15:30 06/20/17 15:29 Dextrose (Dextrose 50% 50ML Syringe) 25-50ML OF 50% DW IV FOR... UD PRN IV 05/21/17 15:30 06/20/17 15:29 Glucagon (Glucagon Inj) 1 mg UD PRN SQ 05/21/17 15:30 06/20/17 15:29 Albuterol Sulfate (Ventolin 0.083% 2.5MG/3ML Neb) 2.5 mg Q4H PRN INH 05/21/17 17:30 06/20/17 17:29 Aspirin (Ecotrin Tab) 81 mg QPM PO 05/21/17 21:00 06/20/17 20:59 05/23/17 20:18 81 MG Atorvastatin Calcium (Lipitor Tab) 20 mg HS PO 05/21/17 21:00 06/20/17 20:59 05/23/17 20:18 20 MG Baclofen (Lioresal Tab) 20 mg QID PO 05/21/17 21:00 06/20/17 20:59 05/24/17 08:01 20 MG Hydrocortisone (Cortef Tab) 5 mg BID PO 05/21/17 21:00 06/20/17 20:59 05/24/17 08:01 5 MG Hydromorphone HCl (Dilaudid Tab) 6 mg Q2H PRN PO 05/21/17 17:30 06/04/17 17:29 05/24/17 06:10 6 MG Levothyroxine Sodium (Synthroid Tab) 175 mcg DAILYBB PO 05/22/17 06:30 06/21/17 06:29 05/24/17 06:06 175 MCG Liothyronine Sodium (Cytomel Tab) 5 mcg BID PO 05/21/17 21:00 06/20/17 20:59 05/24/17 08:01 5 MCG Methocarbamol (Robaxin Tab) 750 mg QID PO 05/21/17 21:00 06/20/17 20:59 05/24/17 08:01 750 MG Metoprolol Tartrate (Lopressor Tab) 25 mg TID PO 05/21/17 21:00 06/20/17 20:59 05/24/17 08:00 25 MG Midodrine (Proamatine Tab) 10 mg BID@1100,1800 PO 05/21/17 18:00 06/20/17 17:59 05/23/17 17:12 10 MG Prednisone (PredniSONE TAB) 3 mg QPM PO 05/21/17 21:00 06/20/17 20:59 05/23/17 20:19 3 MG Pregabalin (Lyrica Cap) 150 mg BID PO 05/21/17 21:00 06/20/17 20:59 05/24/17 08:00 150 MG Sertraline HCl (Zoloft Tab) 50 mg BID PO 05/21/17 21:00 06/20/17 20:59 05/24/17 08:00 50 MG Zolpidem Tartrate (Ambien Tab) 10 mg HS PO 05/21/17 21:00 06/20/17 20:59 05/21/17 21:31 10 MG Pantoprazole Sodium (Protonix Tab) 40 mg QPM PO 05/21/17 21:00 06/20/17 20:59 05/23/17 20:18 40 MG Lactobacillus Acidophilus (Lactinex Granules Pack) 1 gm TIDM PO 05/22/17 08:00 06/21/17 07:59 05/24/17 08:01 1 GM Guaifenesin (Robitussin Sugar Free Syrup) 200 mg Q6H PRN PO 05/21/17 18:00 06/20/17 17:59 05/21/17 21:31 200 MG Levothyroxine Sodium (Synthroid Tab) 50 mcg DAILYBB PO 05/22/17 06:30 06/21/17 06:29 05/24/17 06:06 50 MCG Cefepime HCl 2000 mg/Syringe 20 ml @ 5 mls/min Q8H IV 05/21/17 23:00 05/28/17 22:59 05/24/17 07:01 5 MLS/MIN Miscellaneous Information (Order Awaiting Action) 1 ea QS N/A 05/21/17 22:30 06/20/17 22:29 Menthol (Nice Dayan) 1 dayan PRN PRN PO 05/22/17 02:45 06/21/17 02:44 Prednisone (PredniSONE TAB) 20 mg Taper DAILY PO 05/23/17 09:00 06/01/17 08:59 05/24/17 08:00 20 MG Azithromycin (Zithromax Tab) 500 mg QAM PO 05/24/17 09:00 05/29/17 08:59 05/24/17 08:00 500 MG Vancomycin HCl 1750 mg/Sodium Chloride 535 ml @ 200 mls/hr Q14H IV 05/24/17 20:00 05/29/17 03:59 Objective Vital Signs Date Time Temp Pulse Resp B/P (MAP) Pulse Ox O2 Delivery O2 Flow Rate FiO2 05/23/17 20:00 94 Room Air 05/23/17 19:42 37.1 61 18 125/72 (89) 94 Room Air 05/23/17 16:30 Room Air 05/23/17 15:29 36.5 61 18 147/75 (99) 94 Room Air 05/23/17 12:00 Room Air 05/23/17 11:22 36.6 51 18 132/78 (96) 90 Room Air 05/23/17 08:45 68 127/63 (84) 05/23/17 08:00 Room Air 05/23/17 07:48 36.6 58 16 133/73 (93) 93 Nasal Cannula 2.0 05/23/17 04:00 94 Room Air 05/23/17 03:37 36.7 61 16 155/83 (107) 94 05/23/17 00:25 36.7 56 18 132/76 (94) 95 Nasal Cannula 2.0 05/23/17 00:00 91 Room Air Physical Exam Comments: General Appearance: WD/WN, no apparent distress Eyes: sclerae normal ENT: hearing grossly normal Neck: supple, no JVD, trachea midline Respiratory/Chest: no respiratory distress, no accessory muscle use, + crackles Cardiovascular: regular rate, rhythm, no gallop, no murmur Abdomen: normal bowel sounds, non tender, soft Extremities: no pedal edema, no calf tenderness Neurologic/Psychiatric: alert, oriented x 3 Skin: normal color, warm/dry Laboratory Results Last 24 Hours Test 05/23/17 03:56 05/23/17 04:44 05/23/17 07:50 05/23/17 11:52 Creatinine 0.62 mg/dl Est Creatinine Clear Calc Drug Dose 170.4 ml/min Estimated GFR () 127.6 Estimated GFR (Non- 110.1 Vancomycin Level Trough 18.0 mcg/ml Bedside Glucose 73 mg/dl 105 mg/dl Test 05/23/17 16:36 05/23/17 19:15 05/23/17 20:24 Bedside Glucose 110 mg/dl 83 mg/dl Assessment and Plan 56 year male history of pituitary adenoma, status post resection currently on replacement therapy and steroids Presented with cough/fever/shortness of breath Chest x-ray revealed bilateral multilobar pneumonia Acute Hypoxic Respiratory Failure with Initial Respiratory Distress (RESOLVED) from B/L MultiLobar Pneumonia: Continuing treatment for multilobar pneumonia Patient is improving. - Zithromax 500 mg daily, and cefepime 2 g Q8H, and vancomycin day 3 of 7 - NSS at 75 mL/hr - Ventolin nebs PRN - Finishes Tamiflu on 05/22 -no risk factors for Hospital acquired PNA. Only had 1 day of levofloxacin -if patient continues to improve will discharge tomorrow. Immunocompromised Status - Chronic Steroid Use: - No hypotension or need for stress dosing at this time - continue to monitor glucose and cover if necessary given steroids and acute illness - Patient was prescribed a tapering of steroids as follows: -- 40 mg 1 more day then 20 mg 4 days then 10 mg 4 days - Continue chronic steroids of 3 mg HS -Patient is not taking detention steroids of prednsone over 20mg. His daily gramajo usually is 6.5mg a day H/O Pituitary Adenoma S/P Resection - Hypothyroidism: - Levothyroxine 225 mcg daily and Cytomel 5 mcg BID H/O Osteoporosis/Multiple Fx - Rib Fx on Current CXR - Chronic Pain: - Baclofen 20 mg QID, methocarbamol 750 mg QID and Dilaudid PRN DVT Prophylaxis: Lovenox 40 mg SC daily Code Status: FULL RESUSCITATION Continued [facility] stay due to: multiple IV medications needed Discharge planning: home
[2017-05-23] MEDS: ZOLPIDEM TARTRATE 5 MG TAB PO PRN (23:40)
[2017-05-23] MEDS: ZOLPIDEM TARTRATE 10 MG TAB PO SCH (23:43)
[2017-05-24] VITALS: O2SAT 94
--- NOTE | 2017-05-24 00:55 | NUR ---
A: PATIENT SLEEPING AT THIS TIME. NO CHANGE TO POC.
[2017-05-24] MEDS: VANCOMYCIN IV 1,750 MG in SODIUM CHLORIDE 0.9% 500ML 500 ML IV SCH (03:30)
[2017-05-24] MEDS ORDERED: VANCOMYCIN TROUGH ONE (03:30)
[2017-05-24] MEDS: HYDROmorphone HCL 2 MG TAB PO PRN ×3 (03:38→10:24)
[2017-05-24 03:58] LABS: BASO % 0.1 %; BASO ABS # 0.01 K/uL (0-0.2); EOS % 0.9 %; EOS ABS # 0.12 K/uL (0-0.5); HEMATOCRIT 44.1 % (42-52); HEMOGLOBIN 14.6 g/dL (14.0-18.0); IG# 0.46 K/uL (0.00-0.02); LYMPH % 8.6 %; LYMPH ABS # 1.18 K/uL (1.2-3.4); MEAN CELL VOLUME 91.7 fL (80-100); MEAN CORPUSCULAR HEMOGLOBIN 30.4 pg (25-34); MEAN CORPUSCULAR HGB CONC 33.1 g/dl (32-36); MEAN PLATELET VOLUME 10.4 fL (7.4-10.4); MONO % 5.7 %; MONO ABS # 0.79 K/uL (0.11-0.59); NEUT % 81.4 %; NEUT ABS # 11.18 K/uL (1.4-6.5); PLATELET COUNT 171 K/uL (130-400); RED CELL DISTRIBUTION WIDTH CV 15.9 % (11.5-14.5); RED CELL DISTRIBUTION WIDTH SD 53.3 fL (36.4-46.3); WHITE BLOOD COUNT 13.74 K/uL (4.8-10.8)
--- NOTE | 2017-05-24 04:00 | NUR ---
A/ID: Pt A&Ox4. Medicated with PO Dilaudid for back pain. VSS on 2L nasal cannula. NSR on monitor. IVF infusing with intermittent IV antibiotics. Contact precautions in place. Voiding without difficulty. To be d/c'd home when medically stable. Will continue to monitor.
[2017-05-24 04:15] LABS: CALCIUM 8.6 mg/dl (8.5-10.1); CREATININE 0.66 mg/dl (0.60-1.40); POTASSIUM 3.8 mmol/L (3.5-5.1)
[2017-05-24 04:30] VITALS: BP 112/68; PULSE 54; TEMP 36.6; O2SAT 96
[2017-05-24] MEDS: LEVOTHYROXINE 175 MCG TAB PO SCH (06:06)
[2017-05-24] MEDS: LEVOTHYROXINE 50 MCG TAB PO SCH (06:06)
[2017-05-24] MEDS: CEFEPIME IV 2,000 MG in SYRINGE 7.5 ML IV SCH (07:01)
[2017-05-24 07:20] VITALS: BP 131/74; PULSE 52; TEMP 36.5; O2SAT 91
[2017-05-24] MEDS: PREGABALIN 150 MG CAP PO SCH (08:00)
[2017-05-24] MEDS: SERTRALINE HCL 50 MG TAB PO SCH (08:00)
[2017-05-24] MEDS: METOPROLOL TARTRATE 25 MG TAB PO SCH (08:00)
--- NOTE | 2017-05-24 08:00 | NUR ---
A- Patient resting in bed. Assessment completed. Reports back pain of 5 on 0-10 scale. SB on monitor. BSG 94. Call casey within reach. Will continue to monitor.
[2017-05-24] MEDS: LACTOBACILLUS ACIDOPHILUS 1 GM PACK PO SCH (08:01)
[2017-05-24] MEDS: LIOTHYRONINE SODIUM 5 MCG TAB PO SCH (08:01)
[2017-05-24] MEDS: BACLOFEN TAB 20 MG TAB PO SCH (08:01)
[2017-05-24] MEDS: METHOCARBAMOL 750 MG TAB PO SCH (08:01)
[2017-05-24] MEDS: HYDROCORTISONE 10 MG TAB PO SCH (08:01)
[2017-05-24] MEDS: INSULIN ASPART 100 UNITS/ML 3 ML PEN SC SCH (08:02)
[2017-05-24] MEDS ORDERED: AZITHROMYCIN 250 MG TAB PO SCH (09:00)
[2017-05-24] MEDS: SODIUM CHLORIDE 0.9% 1000ML 1,000 ML IV SCH (09:59)
--- NOTE | 2017-05-24 10:18 | DIAGNOSTIC IMAGING REPORT ---
CHEST 2 VIEWS ROUTINE CLINICAL HISTORY: pneumonia COMPARISON STUDY: 05/21/2017 FINDINGS: There are postsurgical changes of thoracolumbar spinal rodding. The heart is at the upper limits of normal in size. There is no overt failure. There is mild chronic interstitial thickening. There are old left-sided rib deformities. There are linear opacities the right lung base, consistent with subsegmental atelectasis. No pleural effusions are visualized. There are postprocedural changes of a prior mid thoracic vertebroplasty. Multiple lumbar vertebral body compression fractures are visualized.[ IMPRESSION: 1. Mild interstitial thickening, likely chronic 2. Subsegmental atelectatic changes the right lung base 3. No evidence of lobar consolidation Electronically signed by: Deandre Falcon M.D. 05/24/2017 10:16 AM Dictated Date/Time: 05/24/2017 10:14 AM
[2017-05-24] MEDS ORDERED: AMOX875T PO (10:28)
[2017-05-24] MEDS ORDERED: AZIT-57 PO (10:28)
--- NOTE | 2017-05-24 10:31 | Discharge Instructions ---
Discharge Instructions Date of Service May 24, 2017. Admission Reason for Admission: Pneumonia Discharge Discharge Diagnosis / Problem: Community acquired pneumonia Discharge Goals Goal(s): Decrease discomfort, Improve function, Increase independence Activity Recommendations Activity Limitations: resume your previous activity . Instructions / Follow-Up Instructions / Follow-Up F/U with PCP in 1 week Current Hospital Diet Patient's current hospital diet: Diabetes Type 2 Diet Discharge Diet Recommended Diet: Diabetes Type 2 Diet Pending Studies Studies pending at discharge: no Laboratory Results Hemoglobin A1c Test 05/22/17 05:11 Range/Units Estimated Average Glucose 108 mg/dl Hemoglobin A1c 5.4 4.5-5.6 % Medical Emergencies . Who to Call and When: Medical Emergencies: If at any time you feel your situation is an emergency, please call 911 immediately. . Non-Emergent Contact Non-Emergency issues call your: Primary Care Provider Call Non-Emergent contact if: you have a fever, you have any medication questions (if shortness of breath worsens) . . "Provider Documentation" section prepared by Pelon Solomon. . VTE Core Measure Inpt VTE Proph given/why not?: Enoxaparin (Lovenox)SQ
[2017-05-24 10:38] VITALS: BP 131/74; PULSE 52; TEMP 36.5; O2SAT 91
--- NOTE | 2017-05-24 11:04 | NUR ---
A- Patient discharged to home. All instructions and prescriptions reviewed with patient. Verbalized understanding. IV site d/c'd. Left floor at 1105 accompanied by son and volunteer. Belongings with patient.
[2017-05-24] MEDS ORDERED: VANCOMYCIN IV 1,750 MG in SODIUM CHLORIDE 0.9% 500ML 500 ML IV SCH (20:00)
--- NOTE | 2017-05-31 12:12 | Discharge Summary ---
Discharge Summary Date of Service May 24, 2017. Discharge Summary Admission Date: May 21, 2017 at 15:27 Discharge Date: May 24, 2017 Discharge Disposition: Home Principal Diagnosis: Multilobar community acquired pneumonia Immunizations: Have You Had Influenza Vaccine: Yes Influenza Vaccine Date: Mar 21, 2008 History of Tetanus Vaccine?: Yes Tetanus Immunization Date: Sep 07, 2004 History of Pneumococcal: Yes Pneumococcal Date: Mar 21, 2008 History of Hepatitis B Vaccine: Yes Medication Reconciliation New Medications: Azithromycin (Azithromycin) 250 Mg Tab 250 MG PO QAM for 3 Days, #3 TAB Continued Medications: Albuterol Sulf (Albuterol Sulfate) 2.5 Mg/3 Ml Nebu 2.5 MG INH Q4H PRN for SOB/Wheezing Aspirin (Aspirin Ec) 81 Mg Tab 81 MG PO QPM Atorvastatin (Lipitor) 20 Mg Tab 20 MG PO HS, TAB Baclofen (Baclofen) 20 Mg Tab 20 MG PO QID MAY TAKE 3 OR 4 TIMES A DAY. Cholecalciferol (Vitamin D3) 1,000 Inter.unit Tab 1000 UNITS PO DAILY Hydrocortisone (Cortef) 5 Mg Tab 5 MG PO BID, TAB Hydromorphone Hcl (Dilaudid) 4 Mg Tab 4-8 MG PO Q2H PRN for Pain, TAB TAKE 1-2 TABS, Q2-3HR, NO MORE THAN 6 TABS PER DAY. Lansoprazole (Prevacid) 30 Mg Cap 30 MG PO QPM, CAP Levothyroxine Sodium (Synthroid) 50 Mcg Tab 50 MCG PO QAM, TAB TAKE WITH 175 MCG FOR TOTAL DOSE 225 MCG. Levothyroxine Sodium (Synthroid) 175 Mcg Tab 175 MCG PO DAILY, TAB TAKE WITH 50 MCG FOR TOTAL DOSE 225 MCG. Liothyronine Sodium (Liothyronine Sodium) 5 Mcg Tab 5 MCG PO BID Methocarbamol (Robaxin) 750 Mg Tab 750 MG PO QID, TAB Metoprolol Tartrate (Lopressor) (Lopressor) 25 Mg Tab 25 MG PO TID, TAB Midodrine (Midodrine HCl) 10 Mg Tab 10 MG PO BID Polyethylene Glycol 3350 (Miralax) 1 Pow Pow 17 GM PO DAILY PRN for Constipation, #527 GM Prednisone (Prednisone) 1 Mg Tab 3 MG PO QPM, TAB Prednisone (Prednisone) 20 Mg Tab 20 MG PO DIRECTED, TAB STARTED 05/20/17. TAKE 2 TABS X 4 DAYS, THEN 1 TAB X 4 DAYS, THEN 1/2 TAB X 4 DAYS. Pregabalin (Lyrica) 150 Mg Cap 150 MG PO BID, CAP Sertraline (Zoloft) 100 Mg Tab 100 MG PO TID, TAB Spironolactone (Aldactone) 25 Mg Tab 25 MG PO BID, 0 Refills Sulfamethoxazole-Trimethoprim (Bactrim Ds 800MG/160MG) 1 Tab Tab 1 TAB PO BID, TAB Zolpidem Tartrate (Ambien) 10 Mg Tab 10 MG PO HS, TAB Discontinued Medications: Levofloxacin (Levaquin) 500 Mg Tab 500 MG PO DAILY for 7 Days, TAB STARTED 05/20/17 FOR 10 DAYS. Oseltamivir Phosphate (Tamiflu) 75 Mg Cap 75 MG PO BID, #10 CAP ONE MORE DAY OF MED COURSE. Discharge Exam Review of Systems: Constitutional: No fever, No chills Eyes: No worsening of vision ENT: No hearing loss Respiratory: No cough, No sputum Cardiovascular: No chest pain, No orthopnea Abdomen: No pain, No nausea Musculoskeletal: No joint pain, No muscle pain Neurologic: No memory loss Psychiatric: No depression symptoms, No anhedonism Endocrine: No fatigue, No excessive thirst Integumentary: No rash Physical Exam: General Appearance: WD/WN, no apparent distress Neck: supple, no adenopathy Respiratory/Chest: chest non-tender, lungs clear, normal breath sounds Cardiovascular: regular rate, rhythm, no edema Abdomen / GI: normal bowel sounds, non tender, soft Extremities: normal inspection, no calf tenderness Skin: normal color Lymphatic: no adenopathy Hospital Course 56 year male history of pituitary adenoma, status post resection currently on replacement therapy and steroids Presented with cough/fever/shortness of breath Chest x-ray revealed bilateral multilobar pneumonia Acute Hypoxic Respiratory Failure with Initial Respiratory Distress (RESOLVED) from B/L MultiLobar Pneumonia: Patient improved on continued treatment for multilobar pneumonia - Zithromax 500 mg daily, and cefepime 2 g Q8H, and vancomycin day 3 of 7 - NSS at 75 mL/hr - Ventolin nebs PRN - Finishes Tamiflu on 05/22 -no risk factors for Hospital acquired PNA. Only had 1 day of levofloxacin -Patient titrated to pO antibiotics as stated above in discharge meds. 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 His daily dose usually is 6.5mg a day H/O Pituitary Adenoma S/P Resection - Hypothyroidism: - Levothyroxine 225 mcg daily and Cytomel 5 mcg BID H/O Osteoporosis/Multiple Fx - Rib Fx on Current CXR - Chronic Pain: - Baclofen 20 mg QID, methocarbamol 750 mg QID and Dilaudid PRN DVT Prophylaxis: Lovenox 40 mg SC daily Total Time Spent: Greater than 30 minutes This includes examination of the patient, discharge planning, medication reconciliation, and communication with other providers. Discharge Instructions Please refer to the electronic Patient Visit Report (Discharge Instructions) for additional information. Follow-Up As states in discharge instructions
== END 2017-05-24 11:05 | disposition home or self-care (01) | DRG 193 ==
LOC: C.EDB 13:05 → C.MED 15:27 → ENRESERV 16:19
PROVIDERS: ADMIT Internal Medicine; ATTEND Internal Medicine Sports Medicine
DX: J18.1 Lobar pneumonia, unspecified organism (principal); J96.01 Acute respiratory failure with hypoxia; M80.00XA Age-related osteoporosis with current pathological fracture, unspecified site, initial encounter for fracture; D84.9 Immunodeficiency, unspecified; F11.20 Opioid dependence, uncomplicated; E89.3 Postprocedural hypopituitarism; E03.9 Hypothyroidism, unspecified; G89.29 Other chronic pain; X58.XXXA Exposure to other specified factors, initial encounter; Z87.310 Personal history of (healed) osteoporosis fracture; Z87.39 Personal history of other diseases of the musculoskeletal system and connective tissue; Z86.14 Personal history of Methicillin resistant Staphylococcus aureus infection; Z79.2 Long term (current) use of antibiotics; Z79.52 Long term (current) use of systemic steroids; Z79.82 Long term (current) use of aspirin; Z79.899 Other long term (current) drug therapy; Z82.49 Family history of ischemic heart disease and other diseases of the circulatory system

== ENCOUNTER 2018-06-17 09:45 | Inpatient (IN) ==
[2018-06-17] MEDS ORDERED: SODIUM CHLORIDE 0.9% 1000ML 1,000 ML IV STA (10:03)
[2018-06-17] MEDS ORDERED: ACETAMINOPHEN 500 MG TAB PO STA (10:06)
[2018-06-17] MEDS ORDERED: SODIUM CHLORIDE 0.9% 500 ML IV SCH (10:15)
[2018-06-17 10:40] LABS: Appearance Urine Clear (Clear); Bilirubin Urine Negative (Negative); Color Urine Yellow; Glucose Urine UA Negative (Negative); Ketones Urine Negative (Negative); Leukocyte Esterase Urine Negative (Negative); Nitrite Urine Negative (Negative); Protein Urine Negative (Negative); Specific Gravity Urine 1.017 (1.000-1.030); Urobilinogen Urine Negative (Negative)
--- NOTE | 2018-06-17 10:49 | Emergency Department Note ---
Entered by Gagandeep Lang acting as a scribe for ED Provider Note CHIEF COMPLAINT: Weakness HISTORY OF PRESENT ILLNESS: The patient is a 58 year old male who presents to the Emergency Room with complaints of progressively worsening weakness for the past couple of days. The patient states that he felt increasingly weak over the past few days, and when he woke up this morning he felt that he was "too weak to get out of bed." He denies any recent significant cough. The patient's at bedside states that she did have a "head cold" for a few days before the patient's symptoms began. He admits that he has not had much of an appetite recently and has not been eating or drinking as usual. The patient notes that he has had some issues urinating recently and has intermittently had trouble controlling his bladder. He has urinated himself a few times. The patient believes that this is due to the increased dosage of steroids that his Powder Press Operator instructed him to take. He normally takes 5 mg of Hydrocortisone BID and 3 mg of Prednisone ONCE daily. He was instructed to up this regimen to 15 mg of Hydrocortisone BID and 9 mg of Prednisone ONCE daily. He has not taken any other [id number] medications for his symptoms to this point. The adds that he has a significant medical history including multiple bouts of pneumonia. He also has a history of a pituitary tumor with gamma-knife treatment. This caused some Lymphedema in his lower extremities, but he does feel increased weakness in his legs from his baseline. The patient's nurse adds that the patient was 88% on room air upon arrival to his room. Pt denies LOC, headache, diaphoresis, visual changes, neck pain, chest pain, nausea, vomiting, abdominal pain, melena, hematochezia, rash, or other complaints. REVIEW OF SYSTEMS: See HPI for pertinent positives and negatives. A total of ten systems were reviewed and were otherwise negative. PMHx/PSHx: Pituitary Tumor Jesús Knife treatment [place]'s disease Osteoporosis Lymphedema Chronic back pain from multiple fractures SOCIAL HISTORY: Patient lives at home with PHYSICAL EXAM: GENERAL: Awake, alert, tired-appearing, in no distress HENT: Normocephalic, atraumatic. Oropharynx unremarkable. EYES: PERRL. Normal conjunctiva. Sclera non-icteric. NECK: Inspection normal. Non-tender. Supple. No nuchal rigidity. FROM. No masses. RESPIRATORY: Crackles noted in the bases bilaterally. Hypoxia noted on pulse oximetery in room. CARDIAC: Normal rate. Normal rhythm. No murmurs. No rubs. Extremities warm and well perfused. Pulses equal. No JVD. GI: Soft, non-distended. No tenderness to palpation. No rebound or guarding. No masses. RECTAL: Deferred. MUSCULOSKELETAL: Atraumatic. Chest examination reveals no tenderness. The back is symmetrical on inspection without obvious abnormality. There is no CVA tenderness to palpation. No joint edema. LOWER EXTREMITIES: Calves are equal size bilaterally and non-tender. 1+ bilateral lower extremity edema. No discoloration. NEURO: Normal sensorium. No sensory or motor deficits noted. SKIN: No rash or jaundice noted. EMERGENCY DEPARTMENT COURSE: 1003: Past medical records reviewed. The patient was evaluated in room C7, and a complete history and physical examination were performed. 1207: I updated the patient at this time, he is agreeable to an inpatient stay. 1252: I made Dr. Harden aware of the patient at this time. MEDICAL DECISION MAKING: Triage Nursing notes reviewed. The patient's presentation and history were concerning for generalized weakness with history of pituitary removal and chronic steroid use. Etiologies such as metabolic, infection, hypo/hyperglycemia, electrolyte abnormalities, cardiac sources, intracerebral event, toxicologic, neurologic, as well as others were entertained. The patient was found to have a significant fever. He was treated with oral Tylenol. He was hypoxic and was requiring supplemental oxygen. He was hydrated. Chest imaging, blood work and urine testing performed. Cultures performed. The patient had an unremarkable urinalysis. The patient has an x-ray concerning for pneumonia. He has a leukocytosis. Chemistry panel was unremarkable. He was treated with Levaquin and vancomycin. The patient has fever. He is immunocompromised and has hypoxia. Further management in the hospital will be necessary. Consultation was made with internal medicine. The patient was evaluated in the ER for further management. IMPRESSION: Fever Hypoxia Weakness Pneumonia PLAN: Admit The scribe's documentation has been prepared under my direction and personally reviewed by me in its entirety. I confirm that the note above accurately reflects all work, treatment, procedures, and medical decision making performed by me. Impression & Plan Fever, Hypoxia, Weakness Past Med/Surg History Medical History Lymphedema Osteoporosis Status post gamma knife treatment (Resolved) Pituitary tumor (Resolved) Back pain (Chronic) Pneumonia (Resolved) [place]'s disease (Chronic) Social History marital status: Current Living Situation: Spouse Other Information That Helps Us Care for You: No Feels Safe at Home: Yes Safety Concerns: Feels Safe At This Time Smoking Status: Never smoker Hx Alcohol Use: No Hx Substance Use: No Beliefs That Will Affect Care: None Preferred Language: Dominican Communication Ability: Effective Results & Data Vital Signs Vital Signs - 24 hr 06/17/18 09:55 06/17/18 10:08 06/17/18 10:14 Temperature 39.2 C H Temperature Source Oral Sepsis Recent Fever Within 48 Hours Yes Sepsis New/Unexplained Change in Mental Status No Sepsis Action Taken by Nursing No Action Required Pulse Rate 86 Pulse Rate [Apical] Respiratory Rate 20 Respiratory Effort / Characteristics Respiratory Depth Normal Respiratory Pattern Blood Pressure 126/66 Blood Pressure [Right Arm] Blood Pressure Mean 86 Blood Pressure Mean [Right Arm] Pulse Oximetry 88 L 94 Oxygen Delivery Method Nasal Cannula Nasal Cannula Nasal Cannula Oxygen Flow Rate 2 3 06/17/18 11:04 06/17/18 11:30 06/17/18 11:45 Temperature 38.0 C H Temperature Source Oral Sepsis Recent Fever Within 48 Hours Sepsis New/Unexplained Change in Mental Status Sepsis Action Taken by Nursing Pulse Rate 76 74 Pulse Rate [Apical] 79 Respiratory Rate 18 17 19 Respiratory Effort / Characteristics Respiratory Depth Normal Respiratory Pattern Blood Pressure 127/44 L 120/54 L Blood Pressure [Right Arm] 108/45 L Blood Pressure Mean 71 76 Blood Pressure Mean [Right Arm] 66 Pulse Oximetry 92 90 91 Oxygen Delivery Method Nasal Cannula Oxygen Flow Rate 3 06/17/18 12:38 06/17/18 12:56 06/17/18 13:00 Temperature 37.7 C H Temperature Source Oral Sepsis Recent Fever Within 48 Hours Sepsis New/Unexplained Change in Mental Status Sepsis Action Taken by Nursing Pulse Rate 67 Pulse Rate [Apical] 73 Respiratory Rate 18 15 Respiratory Effort / Characteristics Non-Labored Spontaneous Respiratory Depth Normal Respiratory Pattern Regular Blood Pressure 114/54 L Blood Pressure [Right Arm] 99/46 L Blood Pressure Mean 74 Blood Pressure Mean [Right Arm] 63 Pulse Oximetry 92 90 Oxygen Delivery Method Nasal Cannula Nasal Cannula Nasal Cannula Oxygen Flow Rate 3 3 06/17/18 13:15 06/17/18 13:30 06/17/18 13:31 Temperature Temperature Source Sepsis Recent Fever Within 48 Hours Sepsis New/Unexplained Change in Mental Status Sepsis Action Taken by Nursing Pulse Rate 72 72 72 Pulse Rate [Apical] Respiratory Rate 10 L 16 Respiratory Effort / Characteristics Respiratory Depth Respiratory Pattern Blood Pressure 104/53 L 123/59 L Blood Pressure [Right Arm] Blood Pressure Mean 70 80 Blood Pressure Mean [Right Arm] Pulse Oximetry 94 90 90 Oxygen Delivery Method Nasal Cannula Oxygen Flow Rate 06/17/18 13:45 06/17/18 14:35 06/17/18 15:20 Temperature 36.7 C Temperature Source Oral Sepsis Recent Fever Within 48 Hours Sepsis New/Unexplained Change in Mental Status Sepsis Action Taken by Nursing Pulse Rate 74 Pulse Rate [Apical] 71 79 Respiratory Rate 14 20 18 Respiratory Effort / Characteristics Non-Labored Spontaneous Respiratory Depth Respiratory Pattern Blood Pressure 103/55 L Blood Pressure [Right Arm] 143/70 H Blood Pressure Mean 71 Blood Pressure Mean [Right Arm] 94 Pulse Oximetry 91 90 96 Oxygen Delivery Method Nasal Cannula Nasal Cannula Oxygen Flow Rate 3 2 06/17/18 16:01 Temperature Temperature Source Sepsis Recent Fever Within 48 Hours Sepsis New/Unexplained Change in Mental Status Sepsis Action Taken by Nursing Pulse Rate Pulse Rate [Apical] Respiratory Rate Respiratory Effort / Characteristics Short of Breath Respiratory Depth Normal Respiratory Pattern Regular Blood Pressure Blood Pressure [Right Arm] Blood Pressure Mean Blood Pressure Mean [Right Arm] Pulse Oximetry Oxygen Delivery Method Nasal Cannula Oxygen Flow Rate 2 Home Medications Current Medication List: was personally reviewed by me Laboratory Data Attestation: I reviewed the patient's lab results. Result diagrams: 06/17/18 11:00 06/17/18 11:00 Lab Results 06/17/18 06/17/18 06/17/18 Range/Units 10:00 10:00 10:20 WBC (4.8-10.8) K/uL RBC (4.7-6.1) M/uL Hgb (14.0-18.0) g/dL Hct (42-52) % MCV (80-100) fL MCH (25-34) pg MCHC (32-36) g/dL RDW Std Deviation (36.4-46.3) fL RDW Coeff of Tristan (11.5-14.5) % Plt Count (130-400) K/uL MPV (7.4-10.4) fL Immature Gran % (Auto) % Neut % (Auto) % Lymph % (Auto) % [place] % (Auto) % Eos % (Auto) % Baso % (Auto) % Immature Gran # (Auto) (0.00-0.02) K/uL Neut # (Auto) (1.4-6.5) K/uL Lymph # (Auto) (1.2-3.4) K/uL [place] # (Auto) (0.11-0.59) K/uL Eos # (Auto) (0-0.5) K/uL Baso # (Auto) (0-0.2) K/uL Sodium (136-145) mmol/L Potassium (3.5-5.1) mmol/L Chloride (98-107) mmol/L Carbon Dioxide (21-32) mmol/L Anion Gap (3-11) BUN (7-18) mg/dl Creatinine (0.6-1.4) mg/dl Est Cr Clr Drug Dosing ml/min Est GFR ( Amer) Est GFR (Non-Af Amer) BUN/Creatinine Ratio (10-20) Glucose (70-99) mg/dl POC Lactic Acid Adam (0.90-1.70) mmol/L Calcium (8.5-10.1) mg/dl Total Bilirubin (0.2-1) mg/dl AST (15-37) U/L ALT (12-78) U/L Alkaline Phosphatase (45-117) U/L Troponin I (0-0.045) ng/ml Total Protein (6.4-8.2) gm/dl Albumin (3.4-5.0) gm/dl Globulin (2.5-4.0) gm/dl Albumin/Globulin Ratio (0.9-2) Lipase (73-393) U/L Urine Color Yellow Urine Appearance Clear (Clear) Urine pH 6.0 (4.5-7.5) Ur Specific [place] 1.017 (1.000-1.030) Urine Protein Negative (Negative) Urine Glucose (UA) Negative (Negative) Urine Ketones Negative (Negative) Urine Blood Negative (Negative) Urine Nitrite Negative (Negative) Urine Bilirubin Negative (Negative) Urine Urobilinogen Negative (Negative) Ur Leukocyte Esterase Negative (Negative) Nasal Screen MRSA (PCR) (Negative) Influenza Type A Ag Neg for Influ A (Neg) Influenza Type A (PCR) Pos for Influ A A* (Neg) Influenza Type B Ag Neg for Influ B (Neg) Influenza Type B (PCR) Neg for Influ B (Neg) 06/17/18 06/17/18 06/17/18 Range/Units 11:00 11:00 11:03 WBC 16.61 H (4.8-10.8) K/uL RBC 5.13 (4.7-6.1) M/uL Hgb 15.9 (14.0-18.0) g/dL Hct 47.9 (42-52) % MCV 93.4 (80-100) fL MCH 31.0 (25-34) pg MCHC 33.2 (32-36) g/dL RDW Std Deviation 58.9 H (36.4-46.3) fL RDW Coeff of Tristan 17.3 H (11.5-14.5) % Plt Count 122 L (130-400) K/uL MPV 10.6 H (7.4-10.4) fL Immature Gran % (Auto) 0.5 % Neut % (Auto) 87.1 % Lymph % (Auto) 4.0 % [place] % (Auto) 7.8 % Eos % (Auto) 0.5 % Baso % (Auto) 0.1 % Immature Gran # (Auto) 0.09 H (0.00-0.02) K/uL Neut # (Auto) 14.47 H (1.4-6.5) K/uL Lymph # (Auto) 0.67 L (1.2-3.4) K/uL [place] # (Auto) 1.29 H (0.11-0.59) K/uL Eos # (Auto) 0.08 (0-0.5) K/uL Baso # (Auto) 0.01 (0-0.2) K/uL Sodium 135 L (136-145) mmol/L Potassium 4.0 (3.5-5.1) mmol/L Chloride 100 (98-107) mmol/L Carbon Dioxide 26 (21-32) mmol/L Anion Gap 8.0 (3-11) BUN 11 (7-18) mg/dl Creatinine 0.98 (0.6-1.4) mg/dl Est Cr Clr Drug Dosing 105.1 ml/min Est GFR ( Amer) 97.4 Est GFR (Non-Af Amer) 84.1 BUN/Creatinine Ratio 11.5 (10-20) Glucose 85 (70-99) mg/dl POC Lactic Acid Adam 1.17 (0.90-1.70) mmol/L Calcium 8.6 (8.5-10.1) mg/dl Total Bilirubin 0.6 (0.2-1) mg/dl AST 42 H (15-37) U/L ALT 33 (12-78) U/L Alkaline Phosphatase 127 H (45-117) U/L Troponin I < 0.015 (0-0.045) ng/ml Total Protein 6.8 (6.4-8.2) gm/dl Albumin 3.2 L (3.4-5.0) gm/dl Globulin 3.6 (2.5-4.0) gm/dl Albumin/Globulin Ratio 0.9 (0.9-2) Lipase 105 (73-393) U/L Urine Color Urine Appearance (Clear) Urine pH (4.5-7.5) Ur Specific [place] (1.000-1.030) Urine Protein (Negative) Urine Glucose (UA) (Negative) Urine Ketones (Negative) Urine Blood (Negative) Urine Nitrite (Negative) Urine Bilirubin (Negative) Urine Urobilinogen (Negative) Ur Leukocyte Esterase (Negative) Nasal Screen MRSA (PCR) (Negative) Influenza Type A Ag (Neg) Influenza Type A (PCR) (Neg) Influenza Type B Ag (Neg) Influenza Type B (PCR) (Neg) 06/17/18 Range/Units 14:55 WBC (4.8-10.8) K/uL RBC (4.7-6.1) M/uL Hgb (14.0-18.0) g/dL Hct (42-52) % MCV (80-100) fL MCH (25-34) pg MCHC (32-36) g/dL RDW Std Deviation (36.4-46.3) fL RDW Coeff of Tristan (11.5-14.5) % Plt Count (130-400) K/uL MPV (7.4-10.4) fL Immature Gran % (Auto) % Neut % (Auto) % Lymph % (Auto) % [place] % (Auto) % Eos % (Auto) % Baso % (Auto) % Immature Gran # (Auto) (0.00-0.02) K/uL Neut # (Auto) (1.4-6.5) K/uL Lymph # (Auto) (1.2-3.4) K/uL [place] # (Auto) (0.11-0.59) K/uL Eos # (Auto) (0-0.5) K/uL Baso # (Auto) (0-0.2) K/uL Sodium (136-145) mmol/L Potassium (3.5-5.1) mmol/L Chloride (98-107) mmol/L Carbon Dioxide (21-32) mmol/L Anion Gap (3-11) BUN (7-18) mg/dl Creatinine (0.6-1.4) mg/dl Est Cr Clr Drug Dosing ml/min Est GFR ( Amer) Est GFR (Non-Af Amer) BUN/Creatinine Ratio (10-20) Glucose (70-99) mg/dl POC Lactic Acid Adam (0.90-1.70) mmol/L Calcium (8.5-10.1) mg/dl Total Bilirubin (0.2-1) mg/dl AST (15-37) U/L ALT (12-78) U/L Alkaline Phosphatase (45-117) U/L Troponin I (0-0.045) ng/ml Total Protein (6.4-8.2) gm/dl Albumin (3.4-5.0) gm/dl Globulin (2.5-4.0) gm/dl Albumin/Globulin Ratio (0.9-2) Lipase (73-393) U/L Urine Color Urine Appearance (Clear) Urine pH (4.5-7.5) Ur Specific [place] (1.000-1.030) Urine Protein (Negative) Urine Glucose (UA) (Negative) Urine Ketones (Negative) Urine Blood (Negative) Urine Nitrite (Negative) Urine Bilirubin (Negative) Urine Urobilinogen (Negative) Ur Leukocyte Esterase (Negative) Nasal Screen MRSA (PCR) Negative (Negative) Influenza Type A Ag (Neg) Influenza Type A (PCR) (Neg) Influenza Type B Ag (Neg) Influenza Type B (PCR) (Neg) Administered Medications Albuterol (Duoneb) 3 ml NEB QIDR [facility] Stop: 07/17/18 15:59 Last Admin: 06/17/18 15:19 Dose: 3 ml Baclofen (Lioresal) 20 mg PO QID [facility] Stop: 07/17/18 16:59 Last Admin: 06/17/18 17:04 Dose: 20 mg Sodium Chloride (Nss 1000ml) 1,000 mls @ 125 mls/hr IV .Q8H STA Stop: 06/17/18 18:02 Last Admin: 06/17/18 11:30 Dose: 125 mls/hr Hydrocortisone Sodium (Succinate 50 mg/ Syringe) 1 mls @ 4 mls/min IV Q8H [facility] Stop: 07/17/18 15:14 Last Admin: 06/17/18 16:18 Dose: 4 mls/min Methocarbamol (Robaxin) 750 mg PO QID [facility] Stop: 07/17/18 16:59 Last Admin: 06/17/18 16:19 Dose: 750 mg Metoprolol Tartrate (Lopressor) 25 mg PO TID [facility] Stop: 07/17/18 15:59 Last Admin: 06/17/18 16:18 Dose: 25 mg Midodrine (Proamatine) 10 mg PO BID@0900,1200 [facility] Stop: 07/17/18 16:59 Last Admin: 06/17/18 16:19 Dose: 10 mg Sertraline HCl (Zoloft) 100 mg PO TID [facility] Stop: 07/17/18 15:59 Last Admin: 06/17/18 16:18 Dose: 100 mg Discontinued Medications Acetaminophen (Tylenol) 1,000 mg PO NOW STA Stop: 06/17/18 10:07 Last Admin: 06/17/18 10:26 Dose: 1,000 mg Hydromorphone HCl (Dilaudid) 8 mg PO NOW ONE Stop: 06/17/18 15:31 Last Admin: 06/17/18 15:38 Dose: 8 mg Hydromorphone HCl (Dilaudid) 2 mg IV NOW STA Stop: 06/17/18 17:12 Last Admin: 06/17/18 17:21 Dose: 2 mg Sodium Chloride (Nss) 500 mls @ 999 mls/hr IV .Q31M [facility] Stop: 06/17/18 10:45 Last Infusion: 06/17/18 11:53 Dose: 0 mls/hr Admin: 06/17/18 11:03 Dose: 999 mls/hr Levofloxacin/Dextrose (Levaquin/D5w) 750 mg in 150 mls @ 100 mls/hr IV NOW STA Stop: 06/17/18 13:34 Last Infusion: 06/17/18 13:57 Dose: 0 mls/hr Admin: 06/17/18 12:21 Dose: 100 mls/hr Vancomycin HCl 2,500 mg/ (Sodium Chloride) 550 mls @ 200 mls/hr IV NOW ONE Stop: 06/17/18 14:49 Last Infusion: 06/17/18 15:39 Dose: 0 mls/hr Admin: 06/17/18 12:35 Dose: 200 mls/hr Oseltamivir Phosphate (Tamiflu) 75 mg PO NOW STA Stop: 06/17/18 16:10 Last Admin: 06/17/18 17:04 Dose: 75 mg Imaging Data Attestation: I personally reviewed and interpreted this imaging study as follows : Radiologist's Impression: SINGLE VIEW CHEST CLINICAL HISTORY: Fever. FINDINGS: An AP, portable, upright chest radiograph is compared to study dated 05/21/2017 and correlated with chest CT dated 01/16/2007. The examination is degraded by portable technique and patient rotation. The heart is top normal for projection. The pulmonary vasculature is noncongested. There is mild chronic elevation right hemidiaphragm. Streaky airspace opacities are present at both lung bases. No large pleural effusion or pneumothorax is seen. The skeletal structures are osteopenic. There are numerous healed left-sided rib fractures. Extensive postoperative change is noted throughout the thoracolumbar spine with spinal rods in place. Cholecystectomy clips are seen in the right upper quadrant. IMPRESSION: There are streaky bibasilar airspace opacities, which could represent atelectasis versus pneumonia/aspiration pneumonitis. Clinical correlation will be required. Electronically signed by: Efrain Davis M.D. 06/17/2018 11:26 AM ECG Data Attestation: I personally reviewed and interpreted this ECG as follows: Indication: weakness Rate (beats per minute): 82 Rhythm: normal sinus Findings: + nonspecific-ST abn; no PAC, no PVC, no ST depression and no ST elevation Blood Pressure Blood Pressure Findings: Normal blood pressure Discharge Plan Visit Data *Final* Discharge Date/Time: 06/17/18 13:52 Chief Complaint: Weakness ED Provider: Ephraim Cleary Discharge Problem: Fever, Hypoxia, Weakness Patient Disposition: Admitted As Inpatient Discharge Instructions Interventions: ED Discharge Assessment Last Done: 06/17/18 13:52 The scribe's documentation has been prepared under my direction and personally reviewed by me in its entirety. I confirm that the note above accurately reflects all work, treatment, procedures, and medical decision making performed by me.
--- NOTE | 2018-06-17 11:27 | XRay Report ---
SINGLE VIEW CHEST CLINICAL HISTORY: Fever. FINDINGS: An AP, portable, upright chest radiograph is compared to study dated 05/21/2017 and correla wayne with chest CT dated 01/16/2007. The examination is degraded by portable technique and patient rota tion. The heart is top normal for projection. The pulmonary vasculature is noncongested. There is mi ld chronic elevation right hemidiaphragm. Streaky airspace opacities are present at both lung bases. No large pleural effusion or pneumothorax is seen. The skeletal structures are osteopenic. There are numerous healed left-sided rib fractures. Extensive postoperative change is noted throughout the thor acolumbar spine with spinal rods in place. Cholecystectomy clips are seen in the right upper quadrant . IMPRESSION: There are streaky bibasilar airspace opacities, which could represent atelectasis versus pneumonia/aspiration pneumonitis. Clinical correlation will be required. Electronically signed by: Efrain Davis M.D. 06/17/2018 11:26 AM
[2018-06-17 11:29] LABS: Basophils # (auto) 0.01 K/uL (0-0.2); Basophils % (auto) 0.1 %; Eosinophils # (auto) 0.08 K/uL (0-0.5); Eosinophils % (auto) 0.5 %; Hematocrit (blood only) 47.9 % (42-52); Hemoglobin 15.9 g/dL (14.0-18.0); Immature Granulocytes # (auto) 0.09 K/uL (0.00-0.02); Immature Granulocytes % (auto) 0.5 %; Lymphocytes # (auto) 0.67 K/uL (1.2-3.4); Mean Corpuscular Hgb Conc 33.2 g/dL (32-36); Mean Corpuscular Volume 93.4 fL (80-100); Mean Platelet Volume 10.6 fL (7.4-10.4); Monocytes # (auto) 1.29 K/uL (0.11-0.59); Monocytes % (auto) 7.8 %; Neutrophils # (auto) 14.47 K/uL (1.4-6.5); Neutrophils % (auto) 87.1 %; Platelet Count 122 K/uL (130-400); RDW Coefficient of Variation 17.3 % (11.5-14.5); RDW Standard Deviation 58.9 fL (36.4-46.3); Red Blood Count 5.13 M/uL (4.7-6.1); White Blood Count 16.61 K/uL (4.8-10.8)
[2018-06-17 11:46] LABS: Alanine Aminotransferase 33 U/L (12-78); Albumin Level 3.2 gm/dl (3.4-5.0); Aspartate Aminotransferase 42 U/L (15-37); BUN Creatinine Ratio 11.5 (10-20); Blood Urea Nitrogen 11 mg/dl (7-18); Calcium 8.6 mg/dl (8.5-10.1); Carbon Dioxide 26 mmol/L (21-32); Chloride 100 mmol/L (98-107); Creatinine Clr Calc Pharmacy 105.1 ml/min; Est GFR (African American) 97.4; Est GFR (Non-African American) 84.1; Glucose 85 mg/dl (70-99); Sodium 135 mmol/L (136-145)
[2018-06-17 11:51] LABS: Albumin Globulin Ratio 0.9 (0.9-2); Alkaline Phosphatase 127 U/L (45-117); Bilirubin,Total 0.6 mg/dl (0.2-1); Globulin 3.6 gm/dl (2.5-4.0); Total Protein 6.8 gm/dl (6.4-8.2); Troponin I < 0.015 ng/ml (0-0.045)
[2018-06-17] MEDS ORDERED: VANCOMYCIN HCL 2,500 MG in SODIUM CHLORIDE 0.9% 500 ML IV ONE (12:05)
[2018-06-17] MEDS ORDERED: LEVOFLOXACIN/D5W 750 MG/150 ML BAG IV STA (12:05)
[2018-06-17] MEDS ORDERED: VANCOMYCIN CONSULT ACTIVE PRN ×2 (12:05→16:10)
--- NOTE | 2018-06-17 14:02 | History & Physical Report ---
Date of Service June 17, 2018 Assessment & Plan (1) Weakness: 58 y/o M Hx Pituitary resection due to CA - requiring hormonal replacement therapy, HTN, HLD, morbid obesity, chronic back pain. Presenting with a primary complaint of progressive weakness. The pt was hypoxic and febrile on arrival to the ER. A CXR is consistent with BL PNM. He denies a productive cough or CP and was not feeling particularly SOB. It is noted that he was recently treated for LE cellulitis, and due to chronic steroid use, he requires prophylactic Zithro and Bactrim. 1) BL PNM - The pt received Levaquin and Vanc in the ER. As he takes daily Zithro prophylaxis, we will not continue his Levaquin. He will receive Ceftriaxone and IV Zithro starting Am tomorrow. An MRSA swab and sputum culture are pending. Continuaton of vanc can be based on the results. Nebs and 02 are ordered. The pt's BP was bordeline low on arrival. He takes daily hydrocortisone owing to an absent pituitary. We have provided stress dosing. 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 This should be covered by the above antibiotics and would be another reason to continue Vanc after today as it may be the source of his fever if not the apparent PNM. Full code - Heparin prophylaxis Total time for this admit including review of labs, meds, imaging, records - discussion with pt and ER attending - 41 min History of Present Illness Primary Care Provider: Isaac Crenshaw Jr, DO 58 y/o M Hx Pituitary resection due to CA - requiring hormonal replacement therapy, HTN, HLD, morbid obesity, chronic back pain. Presenting with a primary complaint of progressive weakness. The pt was hypoxic and febrile on arrival to the ER. A CXR is consistent with BL PNM. He denies a productive cough or CP and was not feeling particularly SOB. It is noted that he was recently treated for LE cellulitis, and due to chronic steroid use, he requires prophylactic Zithro and Bactrim. PMH: 1) Pituitary tumor - resected - requires hormone replacement therapy 2) HTN 3) HLD 4) Hypothyroidism 5) Low testosterone 6) Morbidly obese 7) Osteoporosis 8) Chronic back pain - dependent on a high dose of narcotics 9) Lumbar osteomyelitis 10) GERD Surgical: 1) Gamma knife pituitary resection 1990s 2) Multiple lumbar spinal surgeries Social: Does not smoke or drink Family: Father due to brain CA Mother following a CVA Allergies Allergy/AdvReac Type Severity Reaction Status Date / Time iron dextran complex Allergy Severe HIVES Verified 06/17/18 10:46 cyclobenzaprine Allergy Intermediate N/V Verified 06/17/18 10:46 Home Medications Home Medications Medication Instructions Recorded Confirmed Type aspirin 81 mg PO PM 06/17/18 06/17/18 History aspirin 975 mg PO UD 06/17/18 06/17/18 History atorvastatin 20 mg PO HS 06/17/18 06/17/18 History azithromycin 250 mg PO QAM 06/17/18 06/17/18 History baclofen 20 mg PO QID 06/17/18 06/17/18 History cholecalciferol (vitamin D3) 1,000 unit PO QAM 06/17/18 06/17/18 History [Vitamin D3] hydrocortisone 5 mg PO BID 06/17/18 06/17/18 History hydromorphone See Label Instructions .ROUTE 06/17/18 06/17/18 History .COMPLEX PRN lansoprazole 30 mg PO QAM 06/17/18 06/17/18 History levothyroxine 50 mg PO QAM 06/17/18 06/17/18 History levothyroxine 175 mg PO QAM 06/17/18 06/17/18 History liothyronine 5 mcg PO BID 06/17/18 06/17/18 History methocarbamol 750 mg PO QID 06/17/18 06/17/18 History metoprolol tartrate 25 mg PO TID 06/17/18 06/17/18 History midodrine 10 mg PO BID 06/17/18 06/17/18 History prednisone 3 mg PO UD 06/17/18 06/17/18 History pregabalin 150 mg PO BID 06/17/18 06/17/18 History sertraline 100 mg PO TID 06/17/18 06/17/18 History spironolactone [Aldactone] 25 mg PO BID 06/17/18 06/17/18 History sulfamethoxazole-trimethoprim 1 tab PO BID 06/17/18 06/17/18 History testosterone cypionate 0.7 ml IM Q10D 06/17/18 06/17/18 History [Depo-Testosterone] zolpidem 10 mg PO HS 06/17/18 06/17/18 History Past Med/Surg History Medical History Lymphedema Osteoporosis Status post gamma knife treatment (Resolved) Pituitary tumor (Resolved) Back pain (Chronic) Pneumonia (Resolved) Applegate's disease (Chronic) Social History marital status: Current Living Situation: Spouse Other Information That Helps Us Care for You: No Feels Safe at Home: Yes Safety Concerns: Feels Safe At This Time Smoking Status: Never smoker Hx Alcohol Use: No Hx Substance Use: No Beliefs That Will Affect Care: None Preferred Language: Arabic Communication Ability: Effective Review of Systems Gen: Fever and progressive gen weakness ENT: Denies congestion, throat pain, hearing loss Eyes: Denies acute visual changes CV: Denies CP, palpitations Pulmonary: Denies SOB, cough, wheezing GI: Denies N/V, diarrhea, constipation Neuro: Denies acute or unilateral weakness, acute gait impairment, headache or acute visual changes Musculoskeletal: Chronic lower back pain Endocrine: Denies polydipsia, polyuria Skin: Eythema of both feet - no significant pain Physical Exam 2 Vital Signs (Past 24 Hours): Last Vital Signs Temp 37.7 C H 06/17/18 12:38 Pulse 73 06/17/18 12:38 Resp 18 06/17/18 12:38 BP 99/46 L 06/17/18 12:38 Pulse Ox 92 06/17/18 12:38 Physical Exam: General: AAO x 3, no distress ENT: No erythema or exudates, no thrush Eyes: PAMELA, EOMI Head and neck: Normocephalic, atraumatic, No JVD, neck is supple. Chest/heart: Nontender, S1,2, RRR, no murmurs, no gallops Lungs: BL crackles at the bases - no wheezing Abdomen: Nontender, nondistended, BS+ Neuro: AAO x 3, speech is clear, no unilateral weakness or loss of sensation, coordination intact Musculoskeletal: No joint inflammation, muscle tenderness, FROM Skin: Erythema of feet Extremities: BL edema - erythema on dorsum of both feet
[2018-06-17] MEDS ORDERED: ALBUTEROL 0.083% NEBU SOLN 3 ML VIAL NEB PRN (14:26)
[2018-06-17] MEDS ORDERED: HYDROCORTISONE SOD SUCCINATE 100 MG/2 ML VIAL IV SCH (14:26)
[2018-06-17] MEDS ORDERED: MAGNESIUM HYDROXIDE SUSP 30 ML UDC PO PRN (14:26)
[2018-06-17] MEDS ORDERED: ONDANSETRON INJ 2 MG/ML 2 ML VIAL IV PRN (14:26)
[2018-06-17] MEDS ORDERED: POLYETHYLENE (MIRALAX) 17 GM PACK PO PRN (14:26)
[2018-06-17] MEDS ORDERED: ALUMINUM/MAGNESIUM SUSP 30 ML UDC PO PRN (14:26)
[2018-06-17] MEDS: ALBUT/IPRATROP 3MG/0.5MG NEB 3 ML VIAL NEB SCH ×2 (15:19→19:26)
[2018-06-17 15:45] LABS: Influenza B virus by PCR Neg for Influ B (Neg)
[2018-06-17] MEDS ORDERED: OSELTAMIVIR PHOSPHATE 75 MG CAP PO STA (16:09)
[2018-06-17] MEDS: HYDROCORTISONE SOD 50 MG in SYRINGE 0 ML IV SCH ×2 (16:18→23:37)
[2018-06-17] MEDS: METOPROLOL TARTRATE 25 MG TAB PO SCH ×2 (16:18→20:08)
[2018-06-17] MEDS: SERTRALINE HCL 100 MG TABLET PO SCH ×2 (16:18→20:09)
[2018-06-17] MEDS: METHOCARBAMOL 750 MG TABLET PO SCH ×2 (16:19→20:07)
[2018-06-17] MEDS: MIDODRINE HCL 10 MG TAB PO SCH (16:19)
[2018-06-17] MEDS: BACLOFEN 20 MG TAB PO SCH ×2 (17:04→20:13)
[2018-06-17] MEDS ORDERED: HYDROmorphone INJ 2 MG/ML SYR/VIAL IV STA (17:11)
[2018-06-17] MEDS: VANCOMYCIN HCL 1,500 MG in SODIUM CHLORIDE 0.9% 500 ML IV SCH (20:06)
[2018-06-17] MEDS: PREGABALIN 150 MG CAP PO SCH (20:06)
[2018-06-17] MEDS: ATORVASTATIN 20 MG TAB PO SCH (20:07)
[2018-06-17] MEDS: LIOTHYRONINE SODIUM 5 MCG TAB PO SCH (20:07)
[2018-06-17] MEDS: SPIRONOLACTONE 25 MG TAB PO SCH (20:08)
[2018-06-17] MEDS: SULFAMETHOXAZOLE/TRIMETHOPRIM DS 800/160MG TAB PO SCH (20:09)
[2018-06-17] MEDS: HEPARIN SOD 5,000 UNIT/0.5 ML VIAL SQ SCH (20:10)
[2018-06-17] MEDS: ASPIRIN 81 MG ECTAB PO SCH (20:12)
--- NOTE | 2018-06-17 20:26 | Pharmacy Report ---
Pharmacy Abx Dose Short Note - Date of Service June 17, 2018 - Assessment & Plan Microbiology Laboratory Tests 06/17/18 06/17/18 06/17/18 10:00 11:00 11:00 WBC 16.61 H Creatinine 0.98 Est Cr Clr Drug Dosing 105.1 Influenza Type A (PCR) Pos for Influ A A* Assessment: 58 yo Male receiving VANC-IV for treatment of possible bilateral pneumonia / completion of LE cellulitis (started in out-pt setting) * Day # 1 of antimicrobial therapy. * also receiving ceftriaxone 1g IV q24h + azith changed to 500mg IV daily + Tamiflu 75mg po BID. * Await results of MRSA nasal swab. Pertinent PMH: pituitary tumor resection on chronic suppressive therapy azith po + SMX/TMP, morbid obesity (BMI 40) Plan: Vanc-IV: * Estimated pharmacokinetics: Ke~0.0916 hr-1, T 1/2~7.5 hrs * LOADING DOSE: VANC 2500mg (~20mg/kg) IV x 1, then * MAINTENANCE DOSE: VANC 1500mg (~12mg/kg) IV q 8 hours. * Goal trough level: 15 to 20 mcg/mL to achieve good penetration to lungs. * VANC Trough level ordered prior to 4th dose Pharmacy will continue to follow and will adjust dose/frequency as necessary. Thank you.
[2018-06-17] MEDS: ZOLPIDEM TARTRATE 10 MG TAB PO SCH (23:00)
[2018-06-18] MEDS: VANCOMYCIN HCL 1,500 MG in SODIUM CHLORIDE 0.9% 500 ML IV SCH ×2 (03:49→12:05)
[2018-06-18] MEDS: LEVOTHYROXINE SODIUM 175 MCG TABLET PO SCH (06:04)
[2018-06-18] MEDS: LEVOTHYROXINE SODIUM 50 MCG TABLET PO SCH (06:05)
[2018-06-18] MEDS: HEPARIN SOD 5,000 UNIT/0.5 ML VIAL SQ SCH ×3 (06:05→22:57)
[2018-06-18] MEDS: ALBUT/IPRATROP 3MG/0.5MG NEB 3 ML VIAL NEB SCH (07:27)
[2018-06-18 08:11] LABS: Basophils # (auto) 0.01 K/uL (0-0.2); Basophils % (auto) 0.1 %; Eosinophils # (auto) 0.01 K/uL (0-0.5); Eosinophils % (auto) 0.1 %; Hematocrit (blood only) 41.2 % (42-52); Hemoglobin 13.4 g/dL (14.0-18.0); Immature Granulocytes # (auto) 0.06 K/uL (0.00-0.02); Immature Granulocytes % (auto) 0.6 %; Lymphocytes # (auto) 0.72 K/uL (1.2-3.4); Lymphocytes % (auto) 7.5 %; Mean Corpuscular Hgb Conc 32.5 g/dL (32-36); Mean Corpuscular Volume 93.6 fL (80-100); Mean Platelet Volume 10.5 fL (7.4-10.4); Monocytes # (auto) 0.45 K/uL (0.11-0.59); Monocytes % (auto) 4.7 %; Platelet Count 113 K/uL (130-400); RDW Coefficient of Variation 17.2 % (11.5-14.5); White Blood Count 9.55 K/uL (4.8-10.8)
[2018-06-18 08:56] LABS: BUN Creatinine Ratio 11.3 (10-20); Creatinine Clr Calc Pharmacy 129.8 ml/min; Est GFR (African American) 113.9; Est GFR (Non-African American) 98.3; Magnesium 2.2 mg/dl (1.8-2.4); Potassium 3.8 mmol/L (3.5-5.1)
[2018-06-18] MEDS ORDERED: AZITHROMYCIN 500 MG in DEXTROSE 5% 250 ML IV SCH (09:00)
[2018-06-18] MEDS: SULFAMETHOXAZOLE/TRIMETHOPRIM DS 800/160MG TAB PO SCH ×2 (09:00→20:38)
[2018-06-18] MEDS: SERTRALINE HCL 100 MG TABLET PO SCH ×3 (09:00→20:40)
[2018-06-18] MEDS: HYDROCORTISONE SOD 50 MG in SYRINGE 0 ML IV SCH ×2 (09:00→16:41)
[2018-06-18] MEDS: METHOCARBAMOL 750 MG TABLET PO SCH ×4 (09:01→20:37)
[2018-06-18] MEDS: BACLOFEN 20 MG TAB PO SCH ×4 (09:01→20:36)
[2018-06-18] MEDS: MIDODRINE HCL 10 MG TAB PO SCH ×2 (09:01→12:05)
[2018-06-18] MEDS: LIOTHYRONINE SODIUM 5 MCG TAB PO SCH ×2 (09:01→20:39)
[2018-06-18] MEDS: PANTOprazole 40 MG TAB PO SCH (09:01)
[2018-06-18] MEDS: SPIRONOLACTONE 25 MG TAB PO SCH ×2 (09:02→20:39)
[2018-06-18] MEDS: OSELTAMIVIR PHOSPHATE 75 MG CAP PO SCH ×2 (09:02→20:41)
[2018-06-18] MEDS: METOPROLOL TARTRATE 25 MG TAB PO SCH ×3 (09:02→20:46)
[2018-06-18] MEDS: cefTRIAXone SODIUM 1,000 MG in DEXTROSE 5% 50 ML IV SCH (09:03)
[2018-06-18] MEDS: PREGABALIN 150 MG CAP PO SCH ×2 (09:07→20:36)
[2018-06-18] MEDS ORDERED: VANCOMYCIN TROUGH ONE (11:30)
--- NOTE | 2018-06-18 12:44 | Pharmacy Report ---
Pharmacy Abx Dose Short Note - Date of Service June 18, 2018 - Assessment & Plan Assessment 58 year old M receiving VANC-IV for treatment of possible bilateral pneumonia/ completion of LE cellulitis (started in out-pt setting) Day # 2 of antimicrobial therapy Plan Vancomycin * Trough level of 17.2 mcg/mL is therapeutic * Continue dose of 1500 mg IV every 8 hours for now. MRSA nasal swab from yesterday was negative. Will discuss the need to continue vancomycin with primary provider. * Goal trough level for pneumonia: 15 to 20 mcg/mL. If vancomycin is continued for cellultis indication, goal trough level could be lowered (10 to 15 mcg/mL). * Will re-check trough tomorrow if vancomycin is continued. Pharmacy will continue to follow and will adjust dose/frequency as necessary. Thank you.
--- NOTE | 2018-06-18 16:56 | Hospitalist Progress Note ---
Date of Service June 18, 2018 Assessment & Plan (1) Weakness: 58 y/o M Hx Pituitary resection due to CA - requiring hormonal replacement therapy, HTN, HLD, morbid obesity, chronic back pain. Presenting with a primary complaint of progressive weakness. The pt was hypoxic and febrile on arrival to the ER. A CXR is consistent with BL PNM. He denies a productive cough or CP and was not feeling particularly SOB. It is noted that he was recently treated for LE cellulitis, and due to chronic steroid use, he requires prophylactic Zithro and Bactrim. Weakness secondary to influenza-treating as below (2) Influenza A with pneumonia: With faint possible bibasilar infilatrates on CXR, fevers, influenza A Given prolonged course of fevers x 5 days,immunosuppression with steroids, may have secondary bacterial PNA after flu. Not coughing much, could be atelectasis on CXR -received Levaquin and Vanc in the ER. -As he takes daily azithromycin prophylaxis, we will not continue his Levaquin. -continue Ceftriaxone and azithromycin -MRSA swab negative so will dc Vanco today -complete 5 day course of Tamiflu--> today day #2 -continue Nebs and 02 a as needed -The pt's BP was bordeline low on arrival-now improved but continue stress dosing of steroids with IV HC -incentive spirometry ordered (3) Sepsis: with fever, leukocytosis, PNA, influenza as source -supportive care -was given IVFs treating flu and PNA as above (4) Acute respiratory failure with hypoxia: secondary to PNA, influenza -continue supplemental O2 prn, wean as tolerated -continue nebs -treating PNA with abx (5) Osteoporosis: secondary to long standing steroids -only on Ca++ and Vit D at home, was on Fosamax for a number of years -needs referral to Rheum or else consideration by PCP to start Prolia, Forteo, or other treatment as outpt (6) Lymphedema: chronic for many years, pt told was secondary to multiple back surgeries. No inguinal URSULA on examination here, no h/o surgery to LNs in pelvis or groin, has not had imaging of veins, etc. 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 (9) Hyperlipidemia: continue statin (10) Back pain: secondary to multiple thoracic and lumbar surgeries and scoliosis surgery with rods with gait dysfunction, uses walker, progressvely worsening, with h/o recent falls -continue baclofen, robaxin, Lyrica, po dilaudid chronically -PT/OT evals placed, may need rehab (11) DVT prophylaxis: SQ heparin Dispo-remain hospitalized, likely for2-3 more days, may need rehab Subjective Pt continues to feel very tired, mild headache, poor appetite, weak all over. Not much cough at all. no chest pain or SOB, He reports he has fallen at home in the recent months, and has had to transition from using 2 canes to using a walker. He has a long h/o back surgeries and ultimately ended up with a scoliosis surgery with rods in back and LE weakness. Also had cyberknife therapy to his pituitary for Cushings and on hormone replacement therapy. He has not seen an Thread Dresser in years. Review of Systems All systems reviewed & are unremarkable except as noted in HPI & below Physical Exam 2 Vital Signs (Past 24 Hours): Last Vital Signs Temp 36.9 C 06/18/18 14:54 Pulse 64 06/18/18 14:54 Resp 20 06/18/18 14:54 BP 112/62 06/18/18 14:54 Pulse Ox 90 06/18/18 14:54 Constitutional: WD/WN, vitals as above (appears fatigued) + obese Eyes: PERRL, conjunctivae normal, anicteric sclerae ENMT: external ear and nose normal, oropharynx normal Neck: trachea midline, no thyromegaly Respiratory: normal respiratory effort; no respiratory distress and no cough Auscultation: + crackles (mild, at bases bilat); no rhonchi and no wheezes Cardiovascular: Rate/Rhythm: regular rate and regular rhythm Heart Sounds: no murmur Extremities: + edema (bilat 2+ pitting edema to the thigs in LEs) Gastrointestinal (Abdomen): normal bowel sounds, soft, nontender, no hepatosplenomegaly Musculoskeletal: Extremities: no cyanosis and no clubbing Skin: no rashes, warm and dry Neurologic: moves all extremities and awake; no focal motor deficits Psychiatric: A+Ox3, euthymic affect Results & Data Laboratory Results 06/18/18 06/18/18 06/18/18 Range/Units 11:33 07:46 07:46 WBC 9.55 (4.8-10.8) K/uL RBC 4.40 L (4.7-6.1) M/uL Hgb 13.4 L (14.0-18.0) g/dL Hct 41.2 L (42-52) % MCV 93.6 (80-100) fL MCH 30.5 (25-34) pg MCHC 32.5 (32-36) g/dL RDW Std Deviation 59.0 H (36.4-46.3) fL RDW Coeff of Tristan 17.2 H (11.5-14.5) % Plt Count 113 L (130-400) K/uL MPV 10.5 H (7.4-10.4) fL Immature Gran % (Auto) 0.6 % Neut % (Auto) 87.0 % Lymph % (Auto) 7.5 % Reynolds % (Auto) 4.7 % Eos % (Auto) 0.1 % Baso % (Auto) 0.1 % Immature Gran # (Auto) 0.06 H (0.00-0.02) K/uL Neut # (Auto) 8.30 H (1.4-6.5) K/uL Lymph # (Auto) 0.72 L (1.2-3.4) K/uL Reynolds # (Auto) 0.45 (0.11-0.59) K/uL Eos # (Auto) 0.01 (0-0.5) K/uL Baso # (Auto) 0.01 (0-0.2) K/uL Sodium 137 (136-145) mmol/L Potassium 3.8 (3.5-5.1) mmol/L Chloride 105 (98-107) mmol/L Carbon Dioxide 26 (21-32) mmol/L Anion Gap 6.0 (3-11) BUN 9 (7-18) mg/dl Creatinine 0.79 (0.6-1.4) mg/dl Est Cr Clr Drug Dosing 129.8 ml/min Est GFR ( Amer) 113.9 Est GFR (Non-Af Amer) 98.3 BUN/Creatinine Ratio 11.3 (10-20) Glucose 89 (70-99) mg/dl Calcium 8.0 L (8.5-10.1) mg/dl Magnesium 2.2 (1.8-2.4) mg/dl Vancomycin Trough 17.2 (See Comment) mcg/ml _ (1) Hyperlipidemia Hyperlipidemia type: unspecified Qualified Code(s): E78.5 - Hyperlipidemia, unspecified (2) Sepsis Sepsis type: sepsis due to unspecified organism Qualified Code(s): A41.9 - Sepsis, unspecified organism
[2018-06-18] MEDS: ATORVASTATIN 20 MG TAB PO SCH (20:37)
[2018-06-18] MEDS: ASPIRIN 81 MG ECTAB PO SCH (20:39)
[2018-06-18] MEDS: ZOLPIDEM TARTRATE 10 MG TAB PO SCH (22:57)
[2018-06-18] MEDS: ACETAMINOPHEN 325 MG TAB PO PRN (22:57)
[2018-06-19] MEDS: HYDROCORTISONE SOD 50 MG in SYRINGE 0 ML IV SCH ×2 (00:40→08:26)
[2018-06-19] MEDS: HEPARIN SOD 5,000 UNIT/0.5 ML VIAL SQ SCH ×3 (06:17→23:51)
[2018-06-19] MEDS: LEVOTHYROXINE SODIUM 175 MCG TABLET PO SCH (06:20)
[2018-06-19 08:01] LABS: Basophils # (auto) 0.01 K/uL (0-0.2); Basophils % (auto) 0.1 %; Eosinophils # (auto) 0.01 K/uL (0-0.5); Eosinophils % (auto) 0.1 %; Hematocrit (blood only) 41.9 % (42-52); Hemoglobin 13.9 g/dL (14.0-18.0); Immature Granulocytes # (auto) 0.07 K/uL (0.00-0.02); Lymphocytes # (auto) 0.82 K/uL (1.2-3.4); Mean Corpuscular Hgb Conc 33.2 g/dL (32-36); Mean Corpuscular Volume 92.7 fL (80-100); Mean Platelet Volume 9.9 fL (7.4-10.4); Monocytes # (auto) 0.57 K/uL (0.11-0.59); Monocytes % (auto) 8.4 %; Neutrophils # (auto) 5.33 K/uL (1.4-6.5); Neutrophils % (auto) 78.4 %; Platelet Count 117 K/uL (130-400); RDW Coefficient of Variation 17.2 % (11.5-14.5); RDW Standard Deviation 58.8 fL (36.4-46.3); Red Blood Count 4.52 M/uL (4.7-6.1); White Blood Count 6.81 K/uL (4.8-10.8)
[2018-06-19] MEDS: METOPROLOL TARTRATE 25 MG TAB PO SCH ×3 (08:21→20:22)
[2018-06-19] MEDS: SULFAMETHOXAZOLE/TRIMETHOPRIM DS 800/160MG TAB PO SCH ×2 (08:25→20:18)
[2018-06-19] MEDS: SPIRONOLACTONE 25 MG TAB PO SCH ×2 (08:25→20:16)
[2018-06-19] MEDS: OSELTAMIVIR PHOSPHATE 75 MG CAP PO SCH ×2 (08:25→20:17)
[2018-06-19] MEDS: SERTRALINE HCL 100 MG TABLET PO SCH ×3 (08:26→20:14)
[2018-06-19] MEDS: MIDODRINE HCL 10 MG TAB PO SCH ×2 (08:26→12:51)
[2018-06-19] MEDS: BACLOFEN 20 MG TAB PO SCH ×4 (08:26→20:15)
[2018-06-19] MEDS: LEVOTHYROXINE SODIUM 50 MCG TABLET PO SCH (08:26)
[2018-06-19] MEDS: METHOCARBAMOL 750 MG TABLET PO SCH ×4 (08:27→20:14)
[2018-06-19] MEDS: LIOTHYRONINE SODIUM 5 MCG TAB PO SCH ×2 (08:27→20:18)
[2018-06-19] MEDS: AZITHROMYCIN 250 MG TAB PO SCH (08:27)
[2018-06-19] MEDS: PANTOprazole 40 MG TAB PO SCH (08:27)
[2018-06-19 08:29] LABS: Blood Urea Nitrogen 10 mg/dl (7-18); Calcium 8.2 mg/dl (8.5-10.1); Carbon Dioxide 26 mmol/L (21-32); Chloride 108 mmol/L (98-107); Creatinine Clr Calc Pharmacy 142.4 ml/min; Est GFR (African American) 118.3; Est GFR (Non-African American) 102.1; Glucose 98 mg/dl (70-99); Potassium 3.7 mmol/L (3.5-5.1); Sodium 140 mmol/L (136-145)
[2018-06-19] MEDS: PREGABALIN 150 MG CAP PO SCH ×2 (08:34→20:12)
[2018-06-19] MEDS: cefTRIAXone SODIUM 1,000 MG in DEXTROSE 5% 50 ML IV SCH (08:34)
[2018-06-19 08:39] LABS: T4 Free Thyroxine 1.38 ng/dl (0.8-1.6)
[2018-06-19] MEDS ORDERED: VANCOMYCIN TROUGH ONE (11:30)
[2018-06-19] MEDS: ACETAMINOPHEN 325 MG TAB PO PRN ×2 (12:55→20:12)
[2018-06-19] MEDS: HYDROCORTISONE SOD 25 MG in SYRINGE 0 ML IV SCH ×2 (16:36→23:52)
[2018-06-19] MEDS: ATORVASTATIN 20 MG TAB PO SCH (20:13)
[2018-06-19] MEDS: ASPIRIN 81 MG ECTAB PO SCH (20:15)
[2018-06-19] MEDS: ZOLPIDEM TARTRATE 10 MG TAB PO SCH (23:50)
--- NOTE | 2018-06-20 00:49 | Hospitalist Progress Note ---
Date of Service June 19, 2018 Assessment & Plan (1) Influenza A with pneumonia: Clinically improved. day #3 of tamiflu for the flu; complete 5 days. continue Ceftriaxone and azithromycin -also day #3 of each; can change to PO abx tomorrow. wean steroids. (2) Sepsis: resolving 2nd to fluA and bacterial pneumonia. 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 wean stress dose steroids to 25mg QID cont on synthroid and cytomel; free T4 is acceptable resume testosterone upon discharge (7) HTN (hypertension), benign: cont home meds (8) Hyperlipidemia: continue statin (9) Back pain: numerous thoracic and lumbar surgeries along with scoliosis surgery with rods continue home regimen of baclofen, robaxin, Lyrica, dilaudid PT, OT evals pending (10) DVT prophylaxis: heparin await PT, OT may need rehab Subjective pt feels "much better" today did better with OT ambulating getting stronger no fever appetite improved Respiratory: no dyspnea Cardiovascular: no chest pain Gastrointestinal: no abdominal pain Physical Exam 2 Vital Signs (Past 24 Hours): Last Vital Signs Temp 36.8 C 06/20/18 00:09 Pulse 58 L 06/20/18 00:09 Resp 18 06/20/18 00:09 BP 144/73 H 06/20/18 00:09 Pulse Ox 96 06/20/18 00:09 Constitutional: well developed, well nourished and + morbidly obese; no acute distress ENMT: external ear and nose normal, oropharynx normal Respiratory: normal respiratory effort; no respiratory distress Auscultation: + rales (extensive b/l worse on right) Cardiovascular: Rate/Rhythm: regular rate and regular rhythm Heart Sounds: normal S1 and normal S2; no murmur Vessels: normal peripheral pulses; no JVD Extremities: + pedal edema (at least 1+; wearing TEDS) Gastrointestinal (Abdomen): normal bowel sounds, soft, nontender, no hepatosplenomegaly Psychiatric: A+Ox3, euthymic affect Results & Data Laboratory Results Laboratory Results - last 24 hr 06/19/18 06/19/18 06/19/18 07:35 07:35 07:35 WBC 6.81 RBC 4.52 L Hgb 13.9 L Hct 41.9 L MCV 92.7 MCH 30.8 MCHC 33.2 RDW Std Deviation 58.8 H RDW Coeff of Tristan 17.2 H Plt Count 117 L MPV 9.9 Immature Gran % (Auto) 1.0 Neut % (Auto) 78.4 Lymph % (Auto) 12.0 Angelina % (Auto) 8.4 Eos % (Auto) 0.1 Baso % (Auto) 0.1 Immature Gran # (Auto) 0.07 H Neut # (Auto) 5.33 Lymph # (Auto) 0.82 L Angelina # (Auto) 0.57 Eos # (Auto) 0.01 Baso # (Auto) 0.01 Sodium 140 Potassium 3.7 Chloride 108 H Carbon Dioxide 26 Anion Gap 6.0 BUN 10 Creatinine 0.72 Est Cr Clr Drug Dosing 142.4 Est GFR ( Amer) 118.3 Est GFR (Non-Af Amer) 102.1 BUN/Creatinine Ratio 14.0 Glucose 98 Calcium 8.2 L Procalcitonin TSH < 0.005 L Free T4 1.38 Free T3 1.89 L 06/19/18 07:35 WBC RBC Hgb Hct MCV MCH MCHC RDW Std Deviation RDW Coeff of Tristan Plt Count MPV Immature Gran % (Auto) Neut % (Auto) Lymph % (Auto) Angelina % (Auto) Eos % (Auto) Baso % (Auto) Immature Gran # (Auto) Neut # (Auto) Lymph # (Auto) Angelina # (Auto) Eos # (Auto) Baso # (Auto) Sodium Potassium Chloride Carbon Dioxide Anion Gap BUN Creatinine Est Cr Clr Drug Dosing Est GFR ( Amer) Est GFR (Non-Af Amer) BUN/Creatinine Ratio Glucose Calcium Procalcitonin 0.41 TSH Free T4 Free T3 _ (1) Sepsis Sepsis type: sepsis due to unspecified organism Qualified Code(s): A41.9 - Sepsis, unspecified organism (2) Hyperlipidemia Hyperlipidemia type: unspecified Qualified Code(s): E78.5 - Hyperlipidemia, unspecified
[2018-06-20] MEDS: LEVOTHYROXINE SODIUM 175 MCG TABLET PO SCH (05:15)
[2018-06-20] MEDS: HEPARIN SOD 5,000 UNIT/0.5 ML VIAL SQ SCH ×3 (06:37→22:06)
[2018-06-20] MEDS: PREGABALIN 150 MG CAP PO SCH ×2 (08:33→21:25)
[2018-06-20] MEDS: METOPROLOL TARTRATE 25 MG TAB PO SCH ×3 (08:33→21:40)
[2018-06-20] MEDS: LIOTHYRONINE SODIUM 5 MCG TAB PO SCH ×2 (08:33→21:26)
[2018-06-20] MEDS: cefTRIAXone SODIUM 1,000 MG in DEXTROSE 5% 50 ML IV SCH (08:34)
[2018-06-20] MEDS: LEVOTHYROXINE SODIUM 50 MCG TABLET PO SCH (08:34)
[2018-06-20] MEDS: HYDROCORTISONE SOD 25 MG in SYRINGE 0 ML IV SCH (08:35)
[2018-06-20] MEDS: PANTOprazole 40 MG TAB PO SCH (08:35)
[2018-06-20] MEDS: SERTRALINE HCL 100 MG TABLET PO SCH ×3 (08:35→21:35)
[2018-06-20] MEDS: METHOCARBAMOL 750 MG TABLET PO SCH ×4 (08:36→21:28)
[2018-06-20] MEDS: MIDODRINE HCL 10 MG TAB PO SCH ×2 (08:36→12:47)
[2018-06-20] MEDS: BACLOFEN 20 MG TAB PO SCH ×4 (08:36→21:28)
[2018-06-20] MEDS: SULFAMETHOXAZOLE/TRIMETHOPRIM DS 800/160MG TAB PO SCH ×2 (08:37→21:27)
[2018-06-20] MEDS: OSELTAMIVIR PHOSPHATE 75 MG CAP PO SCH ×2 (08:37→21:36)
[2018-06-20] MEDS: SPIRONOLACTONE 25 MG TAB PO SCH ×2 (08:37→21:25)
[2018-06-20] MEDS: AZITHROMYCIN 250 MG TAB PO SCH (08:38)
[2018-06-20] MEDS ORDERED: HYDROCORTISONE SOD 25 MG in SYRINGE 0 ML IV SCH ×2 (14:30→20:00)
--- NOTE | 2018-06-20 21:05 | Hospitalist Progress Note ---
Date of Service June 20, 2018 Assessment & Plan (1) Influenza A with pneumonia: Clinically improved. day #4 of tamiflu for the flu; complete 5 days. day #4 of IV antibiotics for his pneumonia; change rocephin/zithromax to levaquin 750mg po daily starting tomorrow. wean steroids once again (today will drop to 25mg BID of IV hydrocortisone, then change to PO steroids tomorrow). (2) Sepsis: resolved 2nd to fluA and bacterial pneumonia. 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 wean stress dose steroids to 25mg BID, then 20mg BID tomorrow chronic steroid dose -- hydrocortisone 10mg qam, hydrocortisone 10mg qafternoon , and then prednisone 3mg at HS cont on synthroid and cytomel; free T4 is acceptable resume testosterone upon discharge (7) HTN (hypertension), benign: cont home meds (8) Hyperlipidemia: continue statin (9) Back pain: numerous thoracic and lumbar surgeries along with scoliosis surgery with rods continue home regimen of baclofen, robaxin, Lyrica, dilaudid he also takes 2 tabs of bactrim daily as prophylaxis; previously had extensive diskitis (?abscess as well) of the spine requiring long-term IV antibiotic therapy years ago PT, OT evals appreciated; rehab recommended (10) DVT prophylaxis: heparin PT, OT both recommending rehab on Thursday make referrals for rehab -- he is agreeable to such Subjective patient overall feeling better each day reports fatigue/feeling tired but appetite is good and strength is improving denies any significant pulmonary symptoms today agreeable to rehab denies any new complaints Constitutional: no fever and no chills Respiratory: + cough; no dyspnea Cardiovascular: no chest pain Gastrointestinal: no abdominal pain, no nausea, no vomiting and no diarrhea/ loose stools Physical Exam 2 Vital Signs (Past 24 Hours): Last Vital Signs Temp 36.2 C L 06/20/18 14:27 Pulse 64 06/20/18 14:27 Resp 14 06/20/18 14:27 BP 137/71 06/20/18 14:27 Pulse Ox 93 06/20/18 14:27 Constitutional: well developed, well nourished and + morbidly obese; no acute distress ENMT: external ear and nose normal, oropharynx normal Respiratory: normal respiratory effort; no respiratory distress Auscultation: + rales (b/l bases - improved today) Cardiovascular: Rate/Rhythm: regular rate and regular rhythm Heart Sounds: normal S1 and normal S2; no murmur Vessels: normal peripheral pulses; no JVD Extremities: + pedal edema (1+; TEDS in place ) Gastrointestinal (Abdomen): normal bowel sounds, soft, nontender, no hepatosplenomegaly Psychiatric: A+Ox3, euthymic affect _ (1) Hyperlipidemia Hyperlipidemia type: unspecified Qualified Code(s): E78.5 - Hyperlipidemia, unspecified (2) Sepsis Sepsis type: sepsis due to unspecified organism Qualified Code(s): A41.9 - Sepsis, unspecified organism
[2018-06-20] MEDS: ATORVASTATIN 20 MG TAB PO SCH (21:26)
[2018-06-20] MEDS: ASPIRIN 81 MG ECTAB PO SCH (21:37)
[2018-06-21] MEDS: ZOLPIDEM TARTRATE 10 MG TAB PO SCH (00:03)
[2018-06-21] MEDS: LEVOTHYROXINE SODIUM 175 MCG TABLET PO SCH (05:24)
[2018-06-21] MEDS: HEPARIN SOD 5,000 UNIT/0.5 ML VIAL SQ SCH ×2 (06:15→14:12)
[2018-06-21 07:11] LABS: Basophils # (auto) 0.01 K/uL (0-0.2); Basophils % (auto) 0.1 %; Eosinophils # (auto) 0.06 K/uL (0-0.5); Eosinophils % (auto) 0.8 %; Hematocrit (blood only) 41.9 % (42-52); Hemoglobin 13.9 g/dL (14.0-18.0); Immature Granulocytes # (auto) 0.17 K/uL (0.00-0.02); Immature Granulocytes % (auto) 2.3 %; Lymphocytes # (auto) 1.53 K/uL (1.2-3.4); Lymphocytes % (auto) 20.6 %; Mean Corpuscular Hgb Conc 33.2 g/dL (32-36); Mean Corpuscular Volume 92.5 fL (80-100); Mean Platelet Volume 10.2 fL (7.4-10.4); Monocytes # (auto) 0.49 K/uL (0.11-0.59); Monocytes % (auto) 6.6 %; Neutrophils # (auto) 5.16 K/uL (1.4-6.5); Neutrophils % (auto) 69.6 %; Platelet Count 132 K/uL (130-400); RDW Standard Deviation 57.7 fL (36.4-46.3); Red Blood Count 4.53 M/uL (4.7-6.1); White Blood Count 7.42 K/uL (4.8-10.8)
[2018-06-21] MEDS ORDERED: HYDROCORTISONE 10 MG TAB PO SCH (09:00)
[2018-06-21] MEDS: PREGABALIN 150 MG CAP PO SCH (09:00)
[2018-06-21] MEDS: BACLOFEN 20 MG TAB PO SCH ×2 (09:00→14:12)
[2018-06-21] MEDS: METOPROLOL TARTRATE 25 MG TAB PO SCH ×2 (09:01→14:11)
[2018-06-21] MEDS: SPIRONOLACTONE 25 MG TAB PO SCH (09:02)
[2018-06-21] MEDS: SERTRALINE HCL 100 MG TABLET PO SCH ×2 (09:02→14:11)
[2018-06-21] MEDS: METHOCARBAMOL 750 MG TABLET PO SCH ×2 (09:03→14:11)
[2018-06-21] MEDS: OSELTAMIVIR PHOSPHATE 75 MG CAP PO SCH (09:03)
[2018-06-21] MEDS: PANTOprazole 40 MG TAB PO SCH (09:04)
[2018-06-21] MEDS: MIDODRINE HCL 10 MG TAB PO SCH ×2 (09:04→11:16)
[2018-06-21] MEDS: LIOTHYRONINE SODIUM 5 MCG TAB PO SCH (09:06)
[2018-06-21] MEDS: LEVOTHYROXINE SODIUM 50 MCG TABLET PO SCH (09:06)
[2018-06-21] MEDS: SULFAMETHOXAZOLE/TRIMETHOPRIM DS 800/160MG TAB PO SCH (09:06)
--- NOTE | 2018-06-21 09:41 | Hospitalist Progress Note ---
Date of Service June 21, 2018 Assessment & Plan (1) Influenza A with pneumonia: Clinically improved. day #4 of tamiflu for the flu; complete 5 days. day #4 of IV antibiotics for his pneumonia; change rocephin/zithromax to levaquin 750mg po daily starting tomorrow. wean steroids once again (today will drop to 25mg BID of IV hydrocortisone, then change to PO steroids tomorrow). (2) Sepsis: resolved 2nd to fluA and bacterial pneumonia. 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 wean stress dose steroids to 25mg BID, then 20mg BID tomorrow chronic steroid dose -- hydrocortisone 10mg qam, hydrocortisone 10mg qafternoon , and then prednisone 3mg at HS cont on synthroid and cytomel; free T4 is acceptable resume testosterone upon discharge (7) HTN (hypertension), benign: cont home meds (8) Hyperlipidemia: continue statin (9) Back pain: numerous thoracic and lumbar surgeries along with scoliosis surgery with rods continue home regimen of baclofen, robaxin, Lyrica, dilaudid he also takes 2 tabs of bactrim daily as prophylaxis; previously had extensive diskitis (?abscess as well) of the spine requiring long-term IV antibiotic therapy years ago PT, OT evals appreciated; rehab recommended (10) DVT prophylaxis: heparin PT, OT both recommending rehab on Thursday make referrals for rehab -- he is agreeable to such Physical Exam 2 Vital Signs (Past 24 Hours): Last Vital Signs Temp 36.5 C 06/21/18 07:29 Pulse 52 L 06/21/18 07:29 Resp 20 06/21/18 07:29 BP 132/76 06/21/18 07:29 Pulse Ox 93 06/21/18 07:29 _ (1) Sepsis Sepsis type: sepsis due to unspecified organism Qualified Code(s): A41.9 - Sepsis, unspecified organism (2) Hyperlipidemia Hyperlipidemia type: unspecified Qualified Code(s): E78.5 - Hyperlipidemia, unspecified
[2018-06-21] MEDS ORDERED: levoFLOXacin 750 MG TAB PO SCH (11:00)
--- NOTE | 2018-06-21 16:35 | Discharge Summary ---
Date of Service June 21, 2018 Admission HPI Per Admitting Provider 58 y/o M Hx Pituitary resection due to CA - requiring hormonal replacement therapy, HTN, HLD, morbid obesity, chronic back pain. Presenting with a primary complaint of progressive weakness. The pt was hypoxic and febrile on arrival to the ER. A CXR is consistent with BL PNM. He denies a productive cough or CP and was not feeling particularly SOB. It is noted that he was recently treated for LE cellulitis, and due to chronic steroid use, he requires prophylactic Zithro and Bactrim. PMH: 1) Pituitary tumor - resected - requires hormone replacement therapy 2) HTN 3) HLD 4) Hypothyroidism 5) Low testosterone 6) Morbidly obese 7) Osteoporosis 8) Chronic back pain - dependent on a high dose of narcotics 9) Lumbar osteomyelitis 10) GERD Surgical: 1) Gamma knife pituitary resection 1990s 2) Multiple lumbar spinal surgeries Social: Does not smoke or drink Family: Father due to brain CA Mother following a CVA Principal Diagnosis influenza pneumonia deconditioning Discharge Exam The patient complains of being chronically deconditioned now worse than his baseline but he is comfortable going home Vital signs as documented. Head exam is unremarkable. normocephalic, atraumatic Neck is without jugular venous distension, thyromegaly, or lymphademopathy Lungs are clear to auscultation and percussion. Cardiac exam reveals Rhythm is regular. First and second heart sounds normal. Abdominal exam reveals normal bowel sounds, no masses, no organomegaly Extremities are nonedematous and both pedal pulses are present Neurologic exam is A&Ox3, no focal deficits, strength is globally reduced Psychologically seems neither anxious or depressed Skin is warm Dry without bruises or lesions Discharge Data Allergies Allergy/AdvReac Type Severity Reaction Status Date / Time iron dextran complex Allergy Severe HIVES Verified 06/17/18 10:46 cyclobenzaprine Allergy Intermediate N/V Verified 06/17/18 10:46 Consultations 06/17/18 12:57 ED Decision to Admit Stat Hospital Course (1) Influenza A with pneumonia: Clinically improved. completed course of tamiflu and will complete 7 days of levaquin 750mg po daily will resume his home dose of steroids once returns to home (2) Sepsis: resolved 2nd to fluA and bacterial pneumonia. 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 wean stress dose steroids to return to home dosing chronic steroid dose -- hydrocortisone 10mg qam, hydrocortisone 10mg qafternoon , and then prednisone 3mg at HS cont on synthroid and cytomel; free T4 is acceptable resume testosterone upon discharge (7) HTN (hypertension), benign: cont home meds (8) Hyperlipidemia: continue statin (9) Back pain: numerous thoracic and lumbar surgeries along with scoliosis surgery with rods continue home regimen of baclofen, robaxin, Lyrica, dilaudid he also takes 2 tabs of bactrim daily as prophylaxis; previously had extensive diskitis (?abscess as well) of the spine requiring long-term IV antibiotic therapy years ago PT, OT evrosie appreciated; pt did improve clinically and will return to home with outpt referral to physical therapy Total Time Total Time Spent Total Time Spent (In Minutes): greater than 30 minutes were required to prepare discharge Discharge Plan Discharge Items Patient Disposition: Home - Self-Care Reason For Visit: PNEUMONIA - HYPOXIA Discharge Diagnosis: influenza pneumonia Discharge Goals: Decrease discomfort Activity: Resume your previous activity Activity Comment: please have outpt physical therapy Non-emergency contact: Primary Care Provider Call non-emergency contact if: you have any medication questions Diet: Regular Addtl Provider Instructions: [facility] is the PT place you asked about [address] [place] [address] [phone] Prescriptions: New levofloxacin 750 mg Tablet 750 mg PO DAILY@1100 Qty: 2 RF: 0 Continue hydrocortisone 5 mg tablet 5 mg PO BID RF: 0 levothyroxine 175 mcg tablet 175 mg PO QAM RF: 0 atorvastatin 20 mg tablet 20 mg PO HS RF: 0 hydromorphone 8 mg tablet See Label Instructions .ROUTE .COMPLEX PRN (Reason: Pain) RF: 0 sertraline 100 mg tablet 100 mg PO TID RF: 0 sulfamethoxazole-trimethoprim 800-160 mg tablet 1 tab PO BID RF: 0 liothyronine 5 mcg tablet 5 mcg PO BID RF: 0 aspirin 81 mg Tablet,Delayed Release (Dr/Ec) 81 mg PO PM RF: 0 spironolactone [Aldactone] 25 mg Tablet 25 mg PO BID RF: 0 baclofen 20 mg tablet 20 mg PO QID RF: 0 methocarbamol 750 mg tablet 750 mg PO QID RF: 0 prednisone 1 mg tablet 3 mg PO UD RF: 0 levothyroxine 50 mcg tablet 50 mg PO QAM RF: 0 lansoprazole 30 mg capsule,delayed release(DR/EC) 30 mg PO QAM RF: 0 testosterone cypionate 200 mg/mL oil 0.7 ml IM Q10D RF: 0 zolpidem 10 mg tablet 10 mg PO HS RF: 0 cholecalciferol (vitamin D3) [Vitamin D3] 1,000 unit Capsule 1,000 unit PO QAM RF: 0 midodrine 10 mg tablet 10 mg PO BID RF: 0 metoprolol tartrate 25 mg tablet 25 mg PO TID RF: 0 pregabalin 150 mg Capsule 150 mg PO BID RF: 0 Discontinued azithromycin 250 mg Tablet 250 mg PO QAM RF: 0 aspirin 325 mg Tablet 975 mg PO UD RF: 0 Visit Report Forms: My [facility] Portal Stand-Alone Forms: My [facility] Discharge Orders: Discharge Order (Routine); Ordered 06/21/18 Ordered By: Derek Burks Admission Data Admit Date/Time: 06/17/18 13:20 Attending Provider: Derek Burks Admit Provider: Mukesh Harden Primary Care Provider: Isaac Crenshaw Jr Other Providers: Mukesh Harden ; Lupillo Guzman Service: Medical Other Interventions: Discharge Summary Assessment (RN) Last Done: 06/21/18 14:17 DC Date/Time DO NOT enter until pt leaves facility: 06/21/18 15:43
== END 2018-06-21 15:43 | disposition home or self-care (01) | DRG 871 ==
LOC: ED 09:45 → SUATTDRO 13:20 → 4W 13:20

== ENCOUNTER 2023-08-13 17:06 | Inpatient (IN) ==
--- NOTE | 2023-08-13 17:12 | ED Triage Note ---
Date of Service August 13, 2023 Provider in Triage Author: Ifeanyi Edwards History of Present Illness This patient was briefly evaluated while in triage. An abbreviated physical exam was performed. This patient is a 63-year-old Male who presents to the ED for evaluation extensive PMHx weakness since yesterday hand/feet swelling x 2 days, left > right having difficulty walking with walker Physical Exam GENERAL: NAD in wheelchair CARDIOVASCULAR: RRR RESPIRATORY: CTA ABDOMEN: BS x 4. Nontender to palpation. EXT: nonpitting edema in dorsum of left hand, no noticeable swelling in right hand. No gross neuro deficits noted. Initial orders for labs and / or imaging were placed and patient was placed in the waiting area until a bed is available. Please see further documentation for the full ED course.
[2023-08-13 18:09] LABS: Basophils # (auto) 0.05 K/uL (0.00-0.20); Basophils % (auto) 0.4 %; Eosinophils # (auto) 0.45 K/uL (0.00-0.50); Eosinophils % (auto) 3.7 %; Hematocrit (blood only) 44.9 % (42.0-52.0); Immature Granulocytes # (auto) 0.12 K/uL (0.01-0.20); Lymphocytes # (auto) 1.35 K/uL (1.20-3.40); Mean Corpuscular Hemoglobin 28.1 pg (25.0-34.0); Mean Corpuscular Hgb Conc 33.4 g/dL (32.0-36.0); Mean Corpuscular Volume 84.2 fL (80.0-100.0); Monocytes # (auto) 0.52 K/uL (0.11-0.59); Monocytes % (auto) 4.2 %; Neutrophils # (auto) 9.75 K/uL (1.40-6.50); Neutrophils % (auto) 79.7 %; Platelet Count 168 K/uL (130-400); RDW Standard Deviation 51.3 fL (36.4-46.3); Red Blood Count 5.33 M/uL (4.70-6.10); White Blood Count 12.24 K/ul (4.8-10.8)
[2023-08-13 18:27] LABS: Alanine Aminotransferase 35 U/L (7-52); Albumin Globulin Ratio 1.2 (0.9-2); Albumin Level 3.7 gm/dl (3.4-5.0); Alkaline Phosphatase 84 U/L (34-104); Anion Gap 6 (3-11); Aspartate Aminotransferase 48 U/L (13-39); BUN Creatinine Ratio 11.8 (10-20); Bilirubin,Total 0.6 mg/dl (0.2-1.0); Blood Urea Nitrogen 8 mg/dl (6-23); Calcium 8.8 mg/dl (8.6-10.3); Carbon Dioxide 28 mmol/L (21-32); Chloride 101 mmol/L (98-107); Est GFR (Non-African American) 100.9 ml/min; Globulin 3.1 gm/dl (2.5-4.0); Glucose 149 mg/dl (70-99(Fasting)); Magnesium 1.7 mg/dl (1.7-2.4); Potassium 4.6 mmol/L (3.5-5.1); Sodium 135 mmol/L (136-145); Total Protein 6.8 gm/dl (6.0-8.3)
[2023-08-13 18:32] LABS: Troponin I High Sensitivity 8.6 pg/ml (0-20)
[2023-08-13 18:42] LABS: Thyroid Stimulating Hormone < 0.010 uIu/ml (0.300-4.500)
[2023-08-13 19:19] LABS: T4 Free Thyroxine 1.28 ng/dl (0.61-1.60)
--- NOTE | 2023-08-13 19:48 | Emergency Department Note ---
Impression & Plan Pulmonary embolism, Low back pain, Left upper extremity swelling, Generalized weakness ED Provider Note NAME: MYLA ALLEN AGE: 63 SEX: M : 1960 ARRIVES VIA: Ambulance INFORMANT: Patient, ED PROVIDER(S): Misael Miller DO CHIEF COMPLAINT: Weakness HPI: The patient is a 63-year-old male who presented to the emergency department for an evaluation of left-sided weakness and swelling. The patient states has been noticing left-sided weakness and swelling of the course last few days. He states he is having trouble ambulating because of this weakness in his left leg he is also noticed that his left arm is very swollen. He denies having any chest pain or difficulty breathing. He denies having any headache. He did call his family doctor to be seen but was referred to the emergency department because they think he may be having a stroke. The patient denies having any vomiting. He has been compliant with his outpatient medications otherwise. ROS: See above HPI for pertinent positives & negatives. A total of 10 systems reviewed and were otherwise negative. PAST MEDICAL HISTORY: See Below PAST SURGICAL HISTORY: See Below FAMILY HISTORY: See Below SOCIAL HISTORY: See Below HOME MEDICATIONS: See Below ALLERGIES: See Below VITALS: See Below PHYSICAL EXAMINATION: GENERAL: Patient is awake alert in no acute distress patient is resting comfortably and showing no signs of anxiety EYES: The conjunctivae are clear. The pupils are round and reactive. EARS, NOSE, MOUTH AND THROAT: The nose is without any evidence of any deformity. NECK: The neck is nontender and supple. RESPIRATORY: Normal respiratory effort is noted there is no evidence of wheezing rhonchi or rales CARDIOVASCULAR: Regular rate and rhythm noted there no murmurs rubs or gallops normal S1 normal S2. GASTROINTESTINAL: The abdomen is soft. Abdomen is nontender. MUSCULOSKELETAL/EXTREMITIES: There is no evidence of gross deformity full range of motion is noted in the hips and shoulders. SKIN: Pedal edema was noted bilaterally. There is swelling in the left hand. Pulses are symmetric in both feet.. NEUROLOGIC: Patient is awake alert and oriented x3. Patient has weakness in both lower extremities. Left greater than right. He is not able to hold each leg off the bed for greater than 5 seconds. Rod Placer strength was symmetric. There is no drift in the upper extremity. MEDICAL DECISION MAKING: The patient is a 63-year-old male who presented to the emergency department for an evaluation of arm swelling and weakness. The patient did not have any focal neurologic deficits but he was globally weak in both lower extremities. He did have pitting edema in the left hand. I discussed the patient's laboratory and radiographic studies with him. He was found to have no signs of intracranial hemorrhage or mass effect, he was not found to have signs of vascular abnormality on CT angiography. He was sent to the emergency from by his family doctor for the concern of a stroke. He did have signs of pulmonary embolism on CT of the chest. I discussed patient's CT with the radiologist. They did not feel there is any abnormality of the aorta. The patient was started on heparin. He was also treated with pain medication. I discussed the patient's condition with the on-call [facility]ist. Ultrasound is still pending but they have agreed to evaluate the patient in the emergency department for further management and disposition. Triage Nursing notes reviewed. Prior medical records reviewed Vital Signs: reviewed and remarkable for elevated blood pressure and bradycardia. Differential diagnosis: Infection, dehydration, metabolic abnormality, hypo/hyperglycemia, electrolyte disturbance, anemia, hypoxia, cardiac sources, intracerebral event, toxicologic, neurologic, as well as other pathologies. ER treatment provided: See below Diagnostics interpreted by me: ECG: EKG was obtained in the emergency department. My interpretation is normal sinus rhythm at 67 bpm. There is no ectopy. ST depression with T wave inversion was noted in the anterior leads. This was compared to a tracing from June 17, 2018. The ST depression is increased compared to previous. Otherwise no changes were noted Cardiac Monitoring: An order was placed for continuous cardiac monitoring. The monitor shows a rate of 62 bpm with sinus rhythm. Laboratory studies: As stated above and show below. Imaging studies: See below. Radiographic imaging was reviewed by myself Consultation(s): I discussed this case with Dr. Dodson who is on-call for the [facility]. ED COURSE: Procedures: none Critical Care: I have personally spent greater than 45 minutes of critical care time in the direct management of this patient. This includes bedside care, interpretation of diagnostic studies, and testing, discussion with consultants, patient, and family members, and other required patient management activities. This 45 minutes is in excess of all separately billable procedures. 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 ankle and RT upper arm>only taking aspirin currently History of anesthesia problem "remembers being aware and hearing talking and conversations during his spinal surgery at [facility]" Hyperlipidemia Hypertension History of COVID-19 05/2021, home test, not hosp; headache, weakness, fatigue, no appetite, fever, diarrhea>resolved. Sleep apnea hx cpap>bipap>now not using anything; new study scheduled w/dr dean in 06/2022 Osteomyelitis Spinal stenosis Lymphedema Osteoporosis Status post gamma knife treatment pituitary gland [place]'s disease Back pain chronic Pituitary tumor hx Surgical History Hx of tonsillectomy Hx of colonoscopy History of lumbar fusion T5-S1 History of cholecystectomy Family History Sister Breast cancer Multiple sclerosis Father Colorectal cancer Myocardial infarction Brother Myocardial infarction Prostate cancer Pancreatitis Denies family history of Ovarian cancer Social History Smoking Status: Never smoker Second Hand Exposure: Yes (as a child-father smoked); Do You Dip or Chew Tobacco: No; Hx Alcohol Use: No Hx Substance Use: No Preferred Language: Arabic Communication Ability: Effective Visual Impairment: No Limitations Hearing Ability: Normal [id number] Application Developer Required: No Beliefs That Will Affect Care: None marital status: Current Living Situation: Spouse and Family current occupational status: other current occupation: Disabled How many Children do You have: 1 Feels Safe at Home: Yes Childhood Exposure to Second-Hand Smoke: Yes Diet: regular caffeine: Yes during the past year weight has: decreased > 10 lbs Dental Care, Regularly: No Physical Activity Frequency: Does not Exercise Seatbelt Use: always Sunscreen Use: Yes Assistive Devices: Glasses Allergies Allergies Allergy/AdvReac Type Severity Reaction Status Date / Time iron dextran complex Allergy Severe HIVES Verified 06/25/23 15:28 cyclobenzaprine Allergy Intermediate N/V Verified 06/25/23 15:28 Home Meds Home Medications Medication Instructions Recorded Confirmed aspirin 81 mg tablet,delayed 81 mg PO HS 06/17/18 06/25/23 release dexamethasone sodium phosphate 4 4 mg PO ONCE PRN 06/25/23 06/25/23 mg/mL injection solution mecobalamin (vitamin B12) 1,000 5,000 mcg PO DAILY 06/25/23 06/25/23 mcg chewable tablet Previous Rx's Medication Instructions Recorded liothyronine 5 mcg tablet 5 mcg PO BID #90 tabs 11/04/22 spironolactone 25 mg tablet 25 mg PO BID #180 tabs 11/11/22 (Aldactone) sertraline 100 mg tablet 100 mg PO TID #180 tabs 02/04/23 atorvastatin 20 mg tablet 20 mg PO HS #90 tabs 02/05/23 prednisone 1 mg tablet 1 mg PO TID 90 days #270 tabs 02/05/23 trazodone 100 mg tablet 100 mg PO HS #90 tabs 02/05/23 metformin 500 mg tablet,extended 500 mg PO BID #180 tabs 02/18/23 release 24 hr Wheeled Walker #1 ea 03/24/23 testosterone cypionate 200 mg/mL 150 mg (0.75 mL) IM Q7D 90 days 04/17/23 intramuscular oil #9.75 mL levothyroxine 50 mcg tablet 50 mcg PO DAILY #90 tabs 05/11/23 syringe with needle, safety 3 mL #100 ea 05/12/23 25 gauge x 1" (BD Integra Syringe) hydrocortisone 5 mg tablet 5 mg PO TID 90 days #270 tabs 06/03/23 pregabalin 150 mg capsule 150 mg PO QID 30 days #120 caps 06/05/23 baclofen 20 mg tablet 20 mg PO TID #90 tabs 07/07/23 sulfamethoxazole 400 1 tab PO DAILY #90 tabs 07/21/23 mg-trimethoprim 80 mg tablet (Bactrim) lansoprazole 30 mg capsule,delayed 30 mg PO QAM #90 caps 08/10/23 release levothyroxine 200 mcg tablet 200 mcg PO QAM #90 tabs 08/10/23 metoprolol tartrate 50 mg tablet 50 mg PO TID #270 tabs 08/10/23 oxycodone 5 mg tablet 5 mg PO Q6 PRN pain #120 tabs 08/11/23 Results & Data (ED) Vital Signs Vital Signs - 24 hr 03/14/24 17:10 08/13/23 19:39 08/13/23 19:49 Temperature 36.5 C Temperature Source Temporal Artery Scan Pulse Rate 68 59 L Pulse Rate [Right Finger] 60 Pulse Rhythm Regular Pulse Rhythm [Right Finger] Pulse Strength Normal Respiratory Rate 20 18 Respiratory Effort / Characteristics Non-Labored Spontaneous Respiratory Depth Normal Respiratory Pattern Blood Pressure 142/76 H Blood Pressure [Right Arm] 140/76 Blood Pressure Mean 98 Blood Pressure Mean [Right Arm] 97 Blood Pressure Position Sitting Blood Pressure Position [Right Arm] Pulse Oximetry 93 96 Oxygen Delivery Method Room Air Sepsis Recent Fever Within 48 Hours No Sepsis New/Unexplained Change in Mental Status N/A Sepsis Action Taken by Nursing No Action Required 08/13/23 22:10 Temperature Temperature Source Pulse Rate Pulse Rate [Right Finger] 58 L Pulse Rhythm Pulse Rhythm [Right Finger] Regular Pulse Strength Respiratory Rate 16 Respiratory Effort / Characteristics Non-Labored Spontaneous Respiratory Depth Normal Respiratory Pattern Regular Blood Pressure Blood Pressure [Right Arm] 154/78 H Blood Pressure Mean Blood Pressure Mean [Right Arm] 103 Blood Pressure Position Blood Pressure Position [Right Arm] Semi-fowlers Pulse Oximetry 92 Oxygen Delivery Method Room Air Sepsis Recent Fever Within 48 Hours Sepsis New/Unexplained Change in Mental Status Sepsis Action Taken by Jail Medications Current Medication List: was personally reviewed by me Laboratory Data Attestation: I reviewed the patient's lab results. 08/13/23 17:45 08/13/23 17:45 Lab Results 08/13/23 08/13/23 Range/Units 17:45 19:50 WBC 12.24 H (4.8-10.8) K/ul RBC 5.33 (4.70-6.10) M/uL Hgb 15.0 (14.0-18.0) g/dl Hct 44.9 (42.0-52.0) % MCV 84.2 (80.0-100.0) fL MCH 28.1 (25.0-34.0) pg MCHC 33.4 (32.0-36.0) g/dL RDW Std Deviation 51.3 H (36.4-46.3) fL RDW Coeff of Tristan 17.0 H (11.5-14.5) % Plt Count 168 (130-400) K/uL MPV 11.0 (9.4-12.4) fL Immature Gran % (Auto) 1.0 % Neut % (Auto) 79.7 % Lymph % (Auto) 11.0 % [place] % (Auto) 4.2 % Eos % (Auto) 3.7 % Baso % (Auto) 0.4 % Neut # (Auto) 9.75 H (1.40-6.50) K/uL Lymph # (Auto) 1.35 (1.20-3.40) K/uL [place] # (Auto) 0.52 (0.11-0.59) K/uL Eos # (Auto) 0.45 (0.00-0.50) K/uL Baso # (Auto) 0.05 (0.00-0.20) K/uL Immature Gran # (Auto) 0.12 (0.01-0.20) K/uL Sodium 135 L (136-145) mmol/L Potassium 4.6 (3.5-5.1) mmol/L Chloride 101 (98-107) mmol/L Carbon Dioxide 28 (21-32) mmol/L Anion Gap 6 (3-11) BUN 8 (6-23) mg/dl Creatinine 0.68 (0.6-1.4) mg/dl Est Cr Clr Drug Dosing Not Reportable Est GFR ( Amer) 117.0 ml/min Est GFR (Non-Af Amer) 100.9 ml/min BUN/Creatinine Ratio 11.8 (10-20) Glucose 149 H (70-99(Fasting)) mg/dl Calcium 8.8 (8.6-10.3) mg/dl Magnesium 1.7 (1.7-2.4) mg/dl Total Bilirubin 0.6 (0.2-1.0) mg/dl AST 48 H (13-39) U/L ALT 35 (7-52) U/L Alkaline Phosphatase 84 (34-104) U/L Troponin I High Sens 8.6 (0-20) pg/ml Total Protein 6.8 (6.0-8.3) gm/dl Albumin 3.7 (3.4-5.0) gm/dl Globulin 3.1 (2.5-4.0) gm/dl Albumin/Globulin Ratio 1.2 (0.9-2) TSH < 0.010 L (0.300-4.500) uIu/ml Free T4 1.28 (0.61-1.60) ng/dl Urine Color Yellow Urine Appearance Clear (Clear) Urine pH 8.0 H (4.5-7.5) Ur Specific [place] 1.010 (1.000-1.030) Urine Protein Negative (Negative) Urine Glucose (UA) Negative (Negative) Urine Ketones Negative (Negative) Urine Blood Negative (Negative) Urine Nitrite Negative (Negative) Urine Bilirubin Negative (Negative) Urine Urobilinogen Negative (Negative) Ur Leukocyte Esterase Negative (Negative) Administered Medications Discontinued Medications Diazepam (Diazepam 5 Mg/Ml 10ml Vial) 5 mg IV NOW STA Stop: 08/13/23 21:58 Last Admin: 08/13/23 22:05 Dose: 5 mg Documented By: MI Hydrocortisone Sodium Succinate (Hydrocortisone Sod Succinate 100 Mg/2 Ml Vial) 100 mg IV NOW STA Stop: 08/13/23 21:55 Last Admin: 08/13/23 22:11 Dose: 100 mg Documented By: MI Acetaminophen (Ofirmev) 1,000 mg in 100 mls @ 400 mls/hr IV NOW STA Stop: 08/13/23 22:11 Last Admin: 08/13/23 22:15 Dose: 400 mls/hr Documented By: MI Ioversol (Optiray 320 125ml) 118 ml IV ONCE ONE Stop: 08/13/23 20:17 Last Admin: 08/13/23 20:16 Dose: 118 ml Documented By: BLANCA Morphine Sulfate (Morphine Sulfate 4 Mg/Ml 1 Ml Carp\\Vial) 4 mg IV NOW STA Stop: 08/13/23 21:28 Last Admin: 08/13/23 21:32 Dose: 4 mg Documented By: MI Oxycodone HCl (Oxycodone Hcl Ir 5 Mg Tab (Immediate Release)) 5 mg PO NOW STA Stop: 08/13/23 20:39 Last Admin: 08/13/23 20:43 Dose: 5 mg Documented By: SHAHLA Imaging Data Attestation: I personally reviewed and interpreted this imaging study as follows: My Impression: CT of the brain was obtained in the emergency department. My interpretation is no intracranial hemorrhage or mass effect, final report below. CT of the chest was obtained in the emergency department. My interpretation is no free air or signs of infiltrate, final report below. Radiologist's Impression: Head CT 08/13/23 19:29 Exam(s): CT HEAD Without Contrast EXAM: CT Head Without Intravenous Contrast CLINICAL HISTORY: Reason for exam: sent by PCP for stroke work up. TECHNIQUE: Axial computed tomography images of the head/brain without intravenous contrast. CTDI is 247.83 mGy and DLP is 3405.53 mGy-cm. Automated exposure control was utilized for the study. A dose lowering technique was utilized adhering to the principles of ALARA. COMPARISON: MRI brain on 01/18/2007 FINDINGS: Brain: No acute infarct or hemorrhage. No extra-axial fluid collection. No mass effect or midline shift. Ventricles and sulci: Mild cerebral volume loss. No ventriculomegaly or intraventricular hemorrhage. Bones: Normal. No bony lesion or acute fracture. Subcutaneous tissues: Normal. Sinuses: Normal. No air-fluid levels or mucosal thickening. Mastoid air cells: Normal. Orbits: Grossly unremarkable. Other: Dental disease. IMPRESSION: No acute intracranial abnormality. If there is persistent concern for acute infarct, consider further evaluation with MRI. Electronically signed by: Melecio Albrecht M.D. 08/13/23 21:07 PM Head CTA 08/13/23 19:29 Exam(s): CTA HEAD With Contrast IV Amt: 118 ml optiray 320 EXAM: CT Angiography Head With Intravenous Contrast CLINICAL HISTORY: Reason for exam: sent by PCP for stroke work up. TECHNIQUE: Axial computed tomographic angiography images of the head with intravenous contrast. CTDI is 247.83 mGy and DLP is 3405.53 mGy-cm. Automated exposure control was utilized for the study. A dose lowering technique was utilized adhering to the principles of ALARA. MIP reconstructed images were created and reviewed. CONTRAST: Patient received 118 ml optiray 320 of IV contrast COMPARISON: None FINDINGS: Right internal carotid artery: Minimal atherosclerotic calcification in the distal right ICA. No significant stenosis. No aneurysm. Right anterior cerebral artery: Unremarkable. No occlusion or significant stenosis. No aneurysm. Right middle cerebral artery: Unremarkable. No occlusion or significant stenosis. No aneurysm. Right posterior cerebral artery: Unremarkable. No occlusion or significant stenosis. No aneurysm. Right vertebral artery: Unremarkable as visualized. Left internal carotid artery: No acute findings. Intracranial segment is patent with no significant stenosis. No aneurysm. Left anterior cerebral artery: Unremarkable. No occlusion or significant stenosis. No aneurysm. Left middle cerebral artery: Unremarkable. No occlusion or significant stenosis. No aneurysm. Left posterior cerebral artery: Unremarkable. No occlusion or significant stenosis. No aneurysm. Left vertebral artery: Unremarkable as visualized. Basilar artery: Unremarkable. No occlusion or significant stenosis. No aneurysm. IMPRESSION: No significant stenosis, occlusion, or aneurysm in the central or large intracranial arteries. Electronically signed by: Melecio Albrecht M.D. 08/13/23 21:11 PM Neck CTA 08/13/23 19:29 Exam(s): CTA NECK With Contrast IV Amt: 118 ml optiray 320 EXAM: CT Angiography Neck With Intravenous Contrast CLINICAL HISTORY: Reason for exam: sent by PCP for stroke work up. TECHNIQUE: Routine carotid CT angiography protocol was performed with intravenous contrast. NASCET criteria using the distal ICAs for comparison were used for evaluation of stenoses. CTDI is 247.83 mGy and DLP is 3405.53 mGy-cm. Automated exposure control was utilized for the study. A dose lowering technique was utilized adhering to the principles of ALARA. MIP reconstructed images were created and reviewed. CONTRAST: Patient received 118 ml optiray 320 of IV contrast COMPARISON: None FINDINGS: VASCULATURE: Right common carotid artery: Unremarkable. No occlusion or significant stenosis. No dissection. Right internal carotid artery: Unremarkable. Extracranial segment is patent with no occlusion or significant stenosis. No dissection. Right external carotid artery: Unremarkable. No occlusion. Right vertebral artery: Unremarkable. No occlusion or significant stenosis. No dissection. Left common carotid artery: Unremarkable. No occlusion or significant stenosis. No dissection. Left internal carotid artery: Mild atherosclerotic calcification in the left carotid bulb and proximal left ICA. No significant stenosis. No dissection. Left external carotid artery: Unremarkable. No occlusion. Left vertebral artery: Unremarkable. No occlusion or significant stenosis. No dissection. NECK: Bones/joints: Unremarkable. No acute fracture. Soft tissues: Unremarkable. Lung apices: Clear. CAROTID STENOSIS REFERENCE USING NASCET CRITERIA: % ICA stenosis = (1 - narrowest ICA diameter/diameter of distal cervical ICA) x 100. Mild - <50% stenosis. Moderate - 50-69% stenosis. Severe - 70-94% stenosis. Near occlusion - 95-99% stenosis. Occluded - 100% stenosis. IMPRESSION: No acute findings in the arteries of the neck. Electronically signed by: Melecio Albrecht M.D. 08/13/23 21:09 PM Chest CTA 08/13/23 19:31 CR Exam(s): CTA CHEST IV Amt: 118 ml optiray 320 EXAM: CT Angiography Chest With Intravenous Contrast CLINICAL HISTORY: Reason for exam: PE. TECHNIQUE: Axial computed tomographic angiography images of the chest with intravenous contrast. CTDI is 247.83 mGy and DLP is 3405.53 mGy-cm. Automated exposure control was utilized for the study. A dose lowering technique was utilized adhering to the principles of ALARA. MIP reconstructed images were created and reviewed. COMPARISON: None FINDINGS: Pulmonary arteries: Hypodense material within subsegmental arteries to the right lower lobe, concerning for pulmonary emboli. Aorta: No acute findings. No aortic aneurysm or dissection. Lungs: Mild dependent and bibasilar atelectasis. No focal consolidation. Pleural space: Unremarkable. No significant effusion. No pneumothorax. Heart: RV/LV ratio is close to 1. No cardiomegaly. No significant pericardial effusion. Bones/joints: Nonspecific hyperdense material in the subsegmental pulmonary arteries to the right middle lobe and minimally in the subsegmental pulmonary artery to the lingula. This could represent embolized kyphoplasty cement material versus calcifications. Spinal fusion rods. Laminectomies in the lower thoracic spine. Kyphoplasty change in the T5 vertebral body. Chronic compression deformities involving T3, T4, T5, T7, T8, T11, T12, L1, and L2. No dislocation. Soft tissues: Unremarkable. Lymph nodes: Unremarkable. No enlarged lymph nodes. Gallbladder and bile ducts: Prior cholecystectomy. Upper abdomen: Elevation of the right hemidiaphragm. IMPRESSION: 1. Hypodense material within subsegmental arteries to the right lower lobe, concerning for pulmonary emboli. 2. No aortic aneurysm or dissection. 3. Nonspecific hyperdense material in the subsegmental pulmonary arteries to the right middle lobe and minimally in the subsegmental pulmonary artery to the lingula. This could represent embolized kyphoplasty cement material versus calcifications. 4. No acute pulmonary parenchymal abnormality identified. Communications: Call Doctor Pulmonary Embolism Electronically signed by: Melecio Albrecht M.D. 08/13/23 21:26 PM Discharge Plan Visit Data Chief Complaint: Weakness Stated Complaint: WEAKNESS, EDEMA IN HANDS & FEET ED Provider: Misael Miller Discharge Problem: Pulmonary embolism, Low back pain, Left upper extremity swelling, Generalized weakness Patient Disposition: Being Evaluated by Hospitalist Forms Stand Alone Forms: My [facility] Prescriptions Prescriptions: No Action liothyronine 5 mcg tablet 5 mcg PO BID Qty: 90 0RF spironolactone [Aldactone] 25 mg tablet 25 mg PO BID Qty: 180 3RF metformin 500 mg tablet extended release 24 hr 500 mg PO BID Qty: 180 3RF (DME) Wheeled Walker Misc See Rx Instructions .Route Qty: 1 0RF Rx Instructions: As directed with seat testosterone cypionate 200 mg/mL oil 150 mg IM Q7D 90 Days Qty: 9.75 3RF Rx Instructions: last filled 06/19/22 levothyroxine 50 mcg tablet 50 mcg PO DAILY Qty: 90 3RF (DME) BD Integra Syringe 3 mL 25 gauge x 1" syringe See Rx Instructions .Route Qty: 100 0RF Rx Instructions: inject teterone every 7 days hydrocortisone 5 mg tablet 5 mg PO TID 90 Days Qty: 270 0RF pregabalin 150 mg capsule 150 mg PO QID 30 Days Qty: 120 1RF baclofen 20 mg tablet 20 mg PO TID Qty: 90 3RF sulfamethoxazole-trimethoprim [Bactrim] 400-80 mg tablet 1 tab PO DAILY Qty: 90 3RF levothyroxine 200 mcg tablet 200 mcg PO QAM Qty: 90 3RF Rx Instructions: total dose 250 lansoprazole 30 mg capsule,delayed release(DR/EC) 30 mg PO QAM Qty: 90 3RF metoprolol tartrate 50 mg tablet 50 mg PO TID Qty: 270 1RF oxycodone 5 mg tablet 5 mg PO Q6 PRN (Reason: pain) Qty: 120 0RF dexamethasone sodium phosphate 4 mg/mL solution 4 mg PO ONCE PRN Rx Instructions: take one 4 mg for emergency mecobalamin (vitamin B12) 1,000 mcg tablet,chewable 5,000 mcg PO DAILY sertraline 100 mg tablet 100 mg PO TID Qty: 180 2RF atorvastatin 20 mg tablet 20 mg PO HS Qty: 90 3RF prednisone 1 mg tablet 1 mg PO TID 90 Days Qty: 270 3RF trazodone 100 mg tablet 100 mg PO HS Qty: 90 3RF aspirin 81 mg Tablet,Delayed Release (Dr/Ec) 81 mg PO HS Referrals Referrals: David Jacob, [Primary Care Provider] - Discharge Problem: Pulmonary embolism Qualifiers: Pulmonary embolism type: unspecified Chronicity: acute Acute cor pulmonale presence: unspecified Qualified Code(s): I26.99 - Other pulmonary embolism without acute cor pulmonale Low back pain Qualifiers: Chronicity: acute Back pain laterality: unspecified Sciatica presence: u nspecified whether sciatica present Qualified Code(s): M54.50 - Low back pain, unspecified
[2023-08-13] MEDS: OPTIRAY 320 125ml IV ONE (20:16)
[2023-08-13] MEDS: oxyCODONE HCL IR 5 MG TAB (IMMEDIATE RELEASE) PO STA (20:43)
[2023-08-13 21:01] LABS: Appearance Urine Clear (Clear); Bilirubin Urine Negative (Negative); Blood Urine Negative (Negative); Color Urine Yellow; Glucose Urine UA Negative (Negative); Ketones Urine Negative (Negative); Leukocyte Esterase Urine Negative (Negative); Nitrite Urine Negative (Negative); Protein Urine Negative (Negative); Urobilinogen Urine Negative (Negative)
--- NOTE | 2023-08-13 21:08 | CT Scan Report ---
Exam(s): CT HEAD Without Contrast EXAM: CT Head Without Intravenous Contrast CLINICAL HISTORY: Reason for exam: sent by PCP for stroke work up. TECHNIQUE: Axial computed tomography images of the head/brain without intravenous contrast. CTDI is 247.83 mGy and DLP is 3405.53 mGy-cm. Automated exposure control was utilized for the study. A dose lowering technique was utilized adhering to the principles of ALARA. COMPARISON: MRI brain on 01/18/2007 FINDINGS: Brain: No acute infarct or hemorrhage. No extra-axial fluid collection. No mass effect or midline shift. Ventricles and sulci: Mild cerebral volume loss. No ventriculomegaly or intraventricular hemorrhage. Bones: Normal. No bony lesion or acute fracture. Subcutaneous tissues: Normal. Sinuses: Normal. No air-fluid levels or mucosal thickening. Mastoid air cells: Normal. Orbits: Grossly unremarkable. Other: Dental disease. IMPRESSION: No acute intracranial abnormality. If there is persistent concern for acute infarct, consider further evaluation with MRI. Electronically signed by: Melecio Albrecht M.D. 08/13/23 21:07 PM
--- NOTE | 2023-08-13 21:10 | CT Scan Report ---
Exam(s): CTA NECK With Contrast IV Amt: 118 ml optiray 320 EXAM: CT Angiography Neck With Intravenous Contrast CLINICAL HISTORY: Reason for exam: sent by PCP for stroke work up. TECHNIQUE: Routine carotid CT angiography protocol was performed with intravenous contrast. NASCET criteria using the distal ICAs for comparison were used for evaluation of stenoses. CTDI is 247.83 mGy and DLP is 3405.53 mGy-cm. Automated exposure control was utilized for the study. A dose lowering technique was utilized adhering to the principles of ALARA. MIP reconstructed images were created and reviewed. CONTRAST: Patient received 118 ml optiray 320 of IV contrast COMPARISON: None FINDINGS: VASCULATURE: Right common carotid artery: Unremarkable. No occlusion or significant stenosis. No dissection. Right internal carotid artery: Unremarkable. Extracranial segment is patent with no occlusion or significant stenosis. No dissection. Right external carotid artery: Unremarkable. No occlusion. Right vertebral artery: Unremarkable. No occlusion or significant stenosis. No dissection. Left common carotid artery: Unremarkable. No occlusion or significant stenosis. No dissection. Left internal carotid artery: Mild atherosclerotic calcification in the left carotid bulb and proximal left ICA. No significant stenosis. No dissection. Left external carotid artery: Unremarkable. No occlusion. Left vertebral artery: Unremarkable. No occlusion or significant stenosis. No dissection. NECK: Bones/joints: Unremarkable. No acute fracture. Soft tissues: Unremarkable. Lung apices: Clear. CAROTID STENOSIS REFERENCE USING NASCET CRITERIA: % ICA stenosis = (1 - narrowest ICA diameter/diameter of distal cervical ICA) x 100. Mild - <50% stenosis. Moderate - 50-69% stenosis. Severe - 70-94% stenosis. Near occlusion - 95-99% stenosis. Occluded - 100% stenosis. IMPRESSION: No acute findings in the arteries of the neck. Electronically signed by: Melecio Albrecht M.D. 08/13/23 21:09 PM
--- NOTE | 2023-08-13 21:12 | CT Scan Report ---
Exam(s): CTA HEAD With Contrast IV Amt: 118 ml optiray 320 EXAM: CT Angiography Head With Intravenous Contrast CLINICAL HISTORY: Reason for exam: sent by PCP for stroke work up. TECHNIQUE: Axial computed tomographic angiography images of the head with intravenous contrast. CTDI is 247.83 mGy and DLP is 3405.53 mGy-cm. Automated exposure control was utilized for the study. A dose lowering technique was utilized adhering to the principles of ALARA. MIP reconstructed images were created and reviewed. CONTRAST: Patient received 118 ml optiray 320 of IV contrast COMPARISON: None FINDINGS: Right internal carotid artery: Minimal atherosclerotic calcification in the distal right ICA. No significant stenosis. No aneurysm. Right anterior cerebral artery: Unremarkable. No occlusion or significant stenosis. No aneurysm. Right middle cerebral artery: Unremarkable. No occlusion or significant stenosis. No aneurysm. Right posterior cerebral artery: Unremarkable. No occlusion or significant stenosis. No aneurysm. Right vertebral artery: Unremarkable as visualized. Left internal carotid artery: No acute findings. Intracranial segment is patent with no significant stenosis. No aneurysm. Left anterior cerebral artery: Unremarkable. No occlusion or significant stenosis. No aneurysm. Left middle cerebral artery: Unremarkable. No occlusion or significant stenosis. No aneurysm. Left posterior cerebral artery: Unremarkable. No occlusion or significant stenosis. No aneurysm. Left vertebral artery: Unremarkable as visualized. Basilar artery: Unremarkable. No occlusion or significant stenosis. No aneurysm. IMPRESSION: No significant stenosis, occlusion, or aneurysm in the central or large intracranial arteries. Electronically signed by: Melecio Albrecht M.D. 08/13/23 21:11 PM
--- NOTE | 2023-08-13 21:26 | CT Scan Report ---
Exam(s): CTA CHEST IV Amt: 118 ml optiray 320 EXAM: CT Angiography Chest With Intravenous Contrast CLINICAL HISTORY: Reason for exam: PE. TECHNIQUE: Axial computed tomographic angiography images of the chest with intravenous contrast. CTDI is 247.83 mGy and DLP is 3405.53 mGy-cm. Automated exposure control was utilized for the study. A dose lowering technique was utilized adhering to the principles of ALARA. MIP reconstructed images were created and reviewed. COMPARISON: None FINDINGS: Pulmonary arteries: Hypodense material within subsegmental arteries to the right lower lobe, concerning for pulmonary emboli. Aorta: No acute findings. No aortic aneurysm or dissection. Lungs: Mild dependent and bibasilar atelectasis. No focal consolidation. Pleural space: Unremarkable. No significant effusion. No pneumothorax. Heart: RV/LV ratio is close to 1. No cardiomegaly. No significant pericardial effusion. Bones/joints: Nonspecific hyperdense material in the subsegmental pulmonary arteries to the right middle lobe and minimally in the subsegmental pulmonary artery to the lingula. This could represent embolized kyphoplasty cement material versus calcifications. Spinal fusion rods. Laminectomies in the lower thoracic spine. Kyphoplasty change in the T5 vertebral body. Chronic compression deformities involving T3, T4, T5, T7, T8, T11, T12, L1, and L2. No dislocation. Soft tissues: Unremarkable. Lymph nodes: Unremarkable. No enlarged lymph nodes. Gallbladder and bile ducts: Prior cholecystectomy. Upper abdomen: Elevation of the right hemidiaphragm. IMPRESSION: 1. Hypodense material within subsegmental arteries to the right lower lobe, concerning for pulmonary emboli. 2. No aortic aneurysm or dissection. 3. Nonspecific hyperdense material in the subsegmental pulmonary arteries to the right middle lobe and minimally in the subsegmental pulmonary artery to the lingula. This could represent embolized kyphoplasty cement material versus calcifications. 4. No acute pulmonary parenchymal abnormality identified. Communications: Call Doctor Pulmonary Embolism Electronically signed by: Melecio Albrecht M.D. 08/13/23 21:26 PM
[2023-08-13] MEDS: MoRPHine SULFATE 4 MG/ML 1 ML CARP\\VIAL IV STA (21:32)
[2023-08-13] MEDS: diazePAM 5 MG/ML 10ML VIAL IV STA (22:05)
[2023-08-13] MEDS: HYDROCORTISONE SOD SUCCINATE 100 MG/2 ML VIAL IV STA (22:11)
[2023-08-13] MEDS: ACETAMINOPHEN 1,000 MG/100 ML VIAL IV STA (22:15)
--- NOTE | 2023-08-13 22:19 | History & Physical Report ---
Date of Service August 13, 2023 Assessment & Plan (1) Pulmonary embolism: Plan: CTA result as above. Likely PE noted in the subsegmental arteries to the right lower lobe. Comment made of possible embolized kyphoplasty cement material vs calcifications. Patient has had multiple back surgeries but none recently. He is HD stable. Adequate oxygenation on room air. No complaint of chest pain, pleuritic pain or shortness of breath. Low risk for mortality per PESI score. 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 Currently not on anticoagulation. -Admit to medical with telemetry -Heparin bolus and gtt -Likely transition to DOAC in AM (2) Back spasm: Plan: Positional. Likely provoked by laying flat for CT. Improved greatly after administration of IV Valium. Patient comfortable on reassessment -Heat as needed -Tylenol PRN -Flexeril 10mg po TID PRN -Morphine PRN -Lidoderm patch -Continue Lyrica and Baclofen - patient with chronic pain (3) Panhypopituitarism: Plan: Patient with remote history of pituitary tumor s/p gamma knife excision. He is with panhypopituitarism. Follows with Endocrinology. He reports missing several doses of his medication today. Blood pressure mildly low in the ER. He was given Hydrocortisone 100mg IV x 1 dose -Will continue home medications Hydrocortisone 5mg po TID. Low threshold for stress dosing -Continue Synthroid 250mcg po daily and Cytomel 5mcg po BID -Continue Prednisone 1mg po TID -Weekly testosterone (4) Left upper extremity swelling: Plan: Patient with complaint of LUE and LLE edema. He does appear to be edematous, possibly slightly increased in LLE. Denies orthopnea, cough, SOB. Doppler of LLE is NEGATIVE for acute DVT. Reported history of lymphedema in the past secondary to lack of movement. He has had PT for it in the past -Elevated extremity -PT/OT evaluation - patient reports difficulty with ambulation, ?lymphedema management -Continue compression stockings (5) HTN (hypertension), benign: Plan: Chronic. Blood pressure acceptable. -Continue Spironolactone -Continue Metoprolol (6) Hyperlipidemia: Plan: Chronic. 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 He noted the swelling started 2 days ago and has been progressive. He reports decreased strength as well as imbalance and generalized weakness. Patient called his PCP and was instructed to come to the ER. He denies fever, chills, cough, CP or shortness of breath. He denies abdominal pain, nausea, vomiting or diarrhea. Denies weight gain or orthopnea. Patient has missed several doses of his medications today. He was taken to CT and developed severe back pain and muscle spasm from laying on the table. Patient in significant pain during my encounter. He also voiced concern that he was feeling off because of missing his steroid dosing. No additional complaints at this time ER Course: Oxycodone 5mg PO Morphine 4mg IV Valium 5mg IV Hydrocortisone 100mg IV Heparin bolus and gtt Lidoderm patch Morphine 4mg IV Allergies Allergy/AdvReac Type Severity Reaction Status Date / Time iron dextran complex Allergy Severe HIVES Verified 06/25/23 15:28 cyclobenzaprine Allergy Intermediate N/V Verified 06/25/23 15:28 Home Medications Medication Instructions Recorded Confirmed Type aspirin 81 mg tablet,delayed 81 mg PO HS 06/17/18 08/14/23 History release liothyronine 5 mcg tablet 5 mcg PO BID #90 tabs 11/04/22 08/14/23 Rx spironolactone 25 mg tablet 25 mg PO BID #180 tabs 11/11/22 08/14/23 Rx (Aldactone) sertraline 100 mg tablet 100 mg PO TID #180 tabs 02/04/23 08/14/23 Rx atorvastatin 20 mg tablet 20 mg PO HS #90 tabs 02/05/23 08/14/23 Rx prednisone 1 mg tablet 1 mg PO TID 90 days #270 tabs 02/05/23 08/14/23 Rx trazodone 100 mg tablet 100 mg PO HS #90 tabs 02/05/23 08/14/23 Rx metformin 500 mg tablet,extended 500 mg PO BID #180 tabs 02/18/23 08/14/23 Rx release 24 hr Wheeled Walker #1 ea 03/24/23 06/25/23 Rx testosterone cypionate 200 mg/mL 150 mg (0.75 mL) IM Q7D 90 days 04/17/23 08/14/23 Rx intramuscular oil #9.75 mL levothyroxine 50 mcg tablet 50 mcg PO DAILY #90 tabs 05/11/23 08/14/23 Rx syringe with needle, safety 3 mL #100 ea 05/12/23 06/25/23 Rx 25 gauge x 1" (BD Integra Syringe) hydrocortisone 5 mg tablet 5 mg PO TID 90 days #270 tabs 06/03/23 08/14/23 Rx pregabalin 150 mg capsule 150 mg PO QID 30 days #120 caps 06/05/23 08/14/23 Rx dexamethasone sodium phosphate 4 4 mg PO ONCE PRN emergency med 06/25/23 08/14/23 History mg/mL injection solution mecobalamin (vitamin B12) 1,000 5,000 mcg PO DAILY 06/25/23 08/14/23 History mcg chewable tablet baclofen 20 mg tablet 20 mg PO TID #90 tabs 07/07/23 08/14/23 Rx sulfamethoxazole 400 1 tab PO DAILY #90 tabs 07/21/23 08/14/23 Rx mg-trimethoprim 80 mg tablet (Bactrim) lansoprazole 30 mg capsule,delayed 30 mg PO QAM #90 caps 08/10/23 08/14/23 Rx release levothyroxine 200 mcg tablet 200 mcg PO QAM #90 tabs 08/10/23 08/14/23 Rx metoprolol tartrate 50 mg tablet 50 mg PO TID #270 tabs 08/10/23 08/14/23 Rx oxycodone 5 mg tablet 5 mg PO Q6 PRN pain #120 tabs 08/11/23 08/14/23 Rx Past Med/Surg History Medical History 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 ankle and RT upper arm>only taking aspirin currently History of anesthesia problem "remembers being aware and hearing talking and conversations during his spinal surgery at [facility]" Hyperlipidemia Hypertension History of COVID-19 05/2021, home test, not hosp; headache, weakness, fatigue, no appetite, fever, diarrhea>resolved. 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 pain chronic Pituitary tumor hx Surgical History Hx of tonsillectomy Hx of colonoscopy History of lumbar fusion T5-S1 History of cholecystectomy Family History Sister Breast cancer Multiple sclerosis Father Colorectal cancer Myocardial infarction Brother Myocardial infarction Prostate cancer Pancreatitis Denies family history of Ovarian cancer Social History Smoking Status: Never smoker Second Hand Exposure: Yes (as a child-father smoked); Do You Dip or Chew Tobacco: No; Hx Alcohol Use: No Hx Substance Use: No Preferred Language: Danish Communication Ability: Effective Visual Impairment: No Limitations Hearing Ability: Normal Frame Trimmer Required: No Beliefs That Will Affect Care: None marital status: Current Living Situation: Spouse and Family current occupational status: other current occupation: Disabled How many Children do You have: 1 Feels Safe at Home: Yes Childhood Exposure to Second-Hand Smoke: Yes Diet: regular caffeine: Yes during the past year weight has: decreased > 10 lbs Dental Care, Regularly: No Physical Activity Frequency: Does not Exercise Seatbelt Use: always Sunscreen Use: Yes Assistive Devices: Glasses Review of Systems Review of Systems: All systems reviewed & are unremarkable except as noted in HPI & below Physical Exam Physical Exam: General: patient in severe pain due to back spasm, answering questions and following commands HEENT: NC/AT, PERRL, EOMI, anicteric sclera, conjunctiva without injection, external ear normal to inspection and nontender, nares patent, moist mucus m embranes, dentition intact, no oropharyngeal lesions, neck supple, trachea midline, no LAD, no thyromegaly, no JVD Heart: +S1/S2, regular, no m/r/g Lungs: equal air entry bilaterally, no rales/rhonchi/wheezes Abd: +BS, soft, NT/ND, no masses/organomegaly/ascites Ext: edema in bilateral LE and UE, slightly worse noted in LLE Neuro: nonfocal, patient AA&O x 4, speech intact, no facial droop, moving all extremities on command with equal strength 5/5 Results & Data Results & Data Vital Signs (Past 12 Hours) Vital Signs Temp Pulse Pulse Resp BP BP Pulse Ox 08/13/23 22:10 58 L 16 154/78 H 92 08/13/23 19:49 59 L 08/13/23 19:39 60 18 140/76 96 08/13/23 17:10 36.5 C 68 20 142/76 H 93 O2 Del Method 08/13/23 22:10 Room Air 08/13/23 19:49 08/13/23 19:39 08/13/23 17:10 Room Air Laboratory Results Laboratory Results WBC 12.24 K/ul (4.8-10.8) H 08/13/23 17:45 RBC 5.33 M/uL (4.70-6.10) 08/13/23 17:45 Hgb 15.0 g/dl (14.0-18.0) 08/13/23 17:45 Hct 44.9 % (42.0-52.0) 08/13/23 17:45 MCV 84.2 fL (80.0-100.0) 08/13/23 17:45 MCH 28.1 pg (25.0-34.0) 08/13/23 17:45 MCHC 33.4 g/dL (32.0-36.0) 08/13/23 17:45 RDW Std Deviation 51.3 fL (36.4-46.3) H 08/13/23 17:45 RDW Coeff of Tristan 17.0 % (11.5-14.5) H 08/13/23 17:45 Plt Count 168 K/uL (130-400) 08/13/23 17:45 MPV 11.0 fL (9.4-12.4) 08/13/23 17:45 Immature Gran % (Auto) 1.0 % 08/13/23 17:45 Neut % (Auto) 79.7 % 08/13/23 17:45 Lymph % (Auto) 11.0 % 08/13/23 17:45 [place] % (Auto) 4.2 % 08/13/23 17:45 Eos % (Auto) 3.7 % 08/13/23 17:45 Baso % (Auto) 0.4 % 08/13/23 17:45 Neut # (Auto) 9.75 K/uL (1.40-6.50) H 08/13/23 17:45 Lymph # (Auto) 1.35 K/uL (1.20-3.40) 08/13/23 17:45 [place] # (Auto) 0.52 K/uL (0.11-0.59) 08/13/23 17:45 Eos # (Auto) 0.45 K/uL (0.00-0.50) 08/13/23 17:45 Baso # (Auto) 0.05 K/uL (0.00-0.20) 08/13/23 17:45 Immature Gran # (Auto) 0.12 K/uL (0.01-0.20) 08/13/23 17:45 PT 11.6 Seconds (9.0-12.0) 08/14/23 00:53 INR 1.1 (0.9-1.1) 08/14/23 00:53 Sodium 135 mmol/L (136-145) L 08/13/23 17:45 Potassium 4.6 mmol/L (3.5-5.1) 08/13/23 17:45 Chloride 101 mmol/L (98-107) 08/13/23 17:45 Carbon Dioxide 28 mmol/L (21-32) 08/13/23 17:45 Anion Gap 6 (3-11) 08/13/23 17:45 BUN 8 mg/dl (6-23) 08/13/23 17:45 Creatinine 0.68 mg/dl (0.6-1.4) 08/13/23 17:45 Est Cr Clr Drug Dosing Not Reportable 08/13/23 17:45 Est GFR ( Amer) 117.0 ml/min 08/13/23 17:45 Est GFR (Non-Af Amer) 100.9 ml/min 08/13/23 17:45 BUN/Creatinine Ratio 11.8 (10-20) 08/13/23 17:45 Glucose 149 mg/dl (70-99(Fasting)) H 08/13/23 17:45 Calcium 8.8 mg/dl (8.6-10.3) 08/13/23 17:45 Phosphorus 2.1 mg/dl (2.5-4.9) L 08/14/23 00:53 Magnesium 1.7 mg/dl (1.7-2.4) 08/13/23 17:45 Total Bilirubin 0.6 mg/dl (0.2-1.0) 08/13/23 17:45 AST 48 U/L (13-39) H 08/13/23 17:45 ALT 35 U/L (7-52) 08/13/23 17:45 Alkaline Phosphatase 84 U/L (34-104) 08/13/23 17:45 Troponin I High Sens 8.6 pg/ml (0-20) 08/13/23 17:45 B-Natriuretic Peptide 40 pg/ml (0-100) 08/14/23 00:53 Total Protein 6.8 gm/dl (6.0-8.3) 08/13/23 17:45 Albumin 3.7 gm/dl (3.4-5.0) 08/13/23 17:45 Globulin 3.1 gm/dl (2.5-4.0) 08/13/23 17:45 Albumin/Globulin Ratio 1.2 (0.9-2) 08/13/23 17:45 TSH < 0.010 uIu/ml (0.300-4.500) L 08/13/23 17:45 Free T4 1.28 ng/dl (0.61-1.60) 08/13/23 17:45 Free T3 2.82 pg/ml (2.3-4.2) 08/14/23 00:53 Urine Color Yellow 08/13/23 19:50 Urine Appearance Clear (Clear) 08/13/23 19:50 Urine pH 8.0 (4.5-7.5) H 08/13/23 19:50 Ur Specific Corn[place] 1.010 (1.000-1.030) 08/13/23 19:50 Urine Protein Negative (Negative) 08/13/23 19:50 Urine Glucose (UA) Negative (Negative) 08/13/23 19:50 Urine Ketones Negative (Negative) 08/13/23 19:50 Urine Blood Negative (Negative) 03/14/24 19:50 Urine Nitrite Negative (Negative) 08/13/23 19:50 Urine Bilirubin Negative (Negative) 08/13/23 19:50 Urine Urobilinogen Negative (Negative) 08/13/23 19:50 Ur Leukocyte Esterase Negative (Negative) 08/13/23 19:[address] 08/13/23 19:29 Exam(s): CT HEAD Without Contrast EXAM: CT Head Without Intravenous Contrast CLINICAL HISTORY: Reason for exam: sent by PCP for stroke work up. TECHNIQUE: Axial computed tomography images of the head/brain without intravenous contrast. CTDI is 247.83 mGy and DLP is 3405.53 mGy-cm. Automated exposure control was utilized for the study. A dose lowering technique was utilized adhering to the principles of ALARA. COMPARISON: MRI brain on 01/18/2007 FINDINGS: Brain: No acute infarct or hemorrhage. No extra-axial fluid collection. No mass effect or midline shift. Ventricles and sulci: Mild cerebral volume loss. No ventriculomegaly or intraventricular hemorrhage. Bones: Normal. No bony lesion or acute fracture. Subcutaneous tissues: Normal. Sinuses: Normal. No air-fluid levels or mucosal thickening. Mastoid air cells: Normal. Orbits: Grossly unremarkable. Other: Dental disease. IMPRESSION: No acute intracranial abnormality. If there is persistent concern for acute infarct, consider further evaluation with MRI. Electronically signed by: Melecio Albrecht M.D. 08/13/23 21:07 PM Head CTA 08/13/23 19:29 Exam(s): CTA HEAD With Contrast IV Amt: 118 ml optiray 320 EXAM: CT Angiography Head With Intravenous Contrast CLINICAL HISTORY: Reason for exam: sent by PCP for stroke work up. TECHNIQUE: Axial computed tomographic angiography images of the head with intravenous contrast. CTDI is 247.83 mGy and DLP is 3405.53 mGy-cm. Automated exposure control was utilized for the study. A dose lowering technique was utilized adhering to the principles of ALARA. MIP reconstructed images were created and reviewed. CONTRAST: Patient received 118 ml optiray 320 of IV contrast COMPARISON: None FINDINGS: Right internal carotid artery: Minimal atherosclerotic calcification in the distal right ICA. No significant stenosis. No aneurysm. Right anterior cerebral artery: Unremarkable. No occlusion or significant stenosis. No aneurysm. Right middle cerebral artery: Unremarkable. No occlusion or significant stenosis. No aneurysm. Right posterior cerebral artery: Unremarkable. No occlusion or significant stenosis. No aneurysm. Right vertebral artery: Unremarkable as visualized. Left internal carotid artery: No acute findings. Intracranial segment is patent with no significant stenosis. No aneurysm. Left anterior cerebral artery: Unremarkable. No occlusion or significant stenosis. No aneurysm. Left middle cerebral artery: Unremarkable. No occlusion or significant stenosis. No aneurysm. Left posterior cerebral artery: Unremarkable. No occlusion or significant stenosis. No aneurysm. Left vertebral artery: Unremarkable as visualized. Basilar artery: Unremarkable. No occlusion or significant stenosis. No aneurysm. IMPRESSION: No significant stenosis, occlusion, or aneurysm in the central or large intracranial arteries. Electronically signed by: Melecio Albrecht M.D. 08/13/23 21:11 PM Neck CTA 08/13/23 19:29 Exam(s): CTA NECK With Contrast IV Amt: 118 ml optiray 320 EXAM: CT Angiography Neck With Intravenous Contrast CLINICAL HISTORY: Reason for exam: sent by PCP for stroke work up. TECHNIQUE: Routine carotid CT angiography protocol was performed with intravenous contrast. NASCET criteria using the distal ICAs for comparison were used for evaluation of stenoses. CTDI is 247.83 mGy and DLP is 3405.53 mGy-cm. Automated exposure control was utilized for the study. A dose lowering technique was utilized adhering to the principles of ALARA. MIP reconstructed images were created and reviewed. CONTRAST: Patient received 118 ml optiray 320 of IV contrast COMPARISON: None FINDINGS: VASCULATURE: Right common carotid artery: Unremarkable. No occlusion or significant stenosis. No dissection. Right internal carotid artery: Unremarkable. Extracranial segment is patent with no occlusion or significant stenosis. No dissection. Right external carotid artery: Unremarkable. No occlusion. Right vertebral artery: Unremarkable. No occlusion or significant stenosis. No dissection. Left common carotid artery: Unremarkable. No occlusion or significant stenosis. No dissection. Left internal carotid artery: Mild atherosclerotic calcification in the left carotid bulb and proximal left ICA. No significant stenosis. No dissection. Left external carotid artery: Unremarkable. No occlusion. Left vertebral artery: Unremarkable. No occlusion or significant stenosis. No dissection. NECK: Bones/joints: Unremarkable. No acute fracture. Soft tissues: Unremarkable. Lung apices: Clear. CAROTID STENOSIS REFERENCE USING NASCET CRITERIA: % ICA stenosis = (1 - narrowest ICA diameter/diameter of distal cervical ICA) x 100. Mild - <50% stenosis. Moderate - 50-69% stenosis. Severe - 70-94% stenosis. Near occlusion - 95-99% stenosis. Occluded - 100% stenosis. IMPRESSION: No acute findings in the arteries of the neck. Electronically signed by: Melecio Albrecht M.D. 08/13/23 21:09 PM Chest CTA 08/13/23 19:31 CR Exam(s): CTA CHEST IV Amt: 118 ml optiray 320 EXAM: CT Angiography Chest With Intravenous Contrast CLINICAL HISTORY: Reason for exam: PE. TECHNIQUE: Axial computed tomographic angiography images of the chest with intravenous contrast. CTDI is 247.83 mGy and DLP is 3405.53 mGy-cm. Automated exposure control was utilized for the study. A dose lowering technique was utilized adhering to the principles of ALARA. MIP reconstructed images were created and reviewed. COMPARISON: None FINDINGS: Pulmonary arteries: Hypodense material within subsegmental arteries to the right lower lobe, concerning for pulmonary emboli. Aorta: No acute findings. No aortic aneurysm or dissection. Lungs: Mild dependent and bibasilar atelectasis. No focal consolidation. Pleural space: Unremarkable. No significant effusion. No pneumothorax. Heart: RV/LV ratio is close to 1. No cardiomegaly. No significant pericardial effusion. Bones/joints: Nonspecific hyperdense material in the subsegmental pulmonary arteries to the right middle lobe and minimally in the subsegmental pulmonary artery to the lingula. This could represent embolized kyphoplasty cement material versus calcifications. Spinal fusion rods. Laminectomies in the lower thoracic spine. Kyphoplasty change in the T5 vertebral body. Chronic compression deformities involving T3, T4, T5, T7, T8, T11, T12, L1, and L2. No dislocation. Soft tissues: Unremarkable. Lymph nodes: Unremarkable. No enlarged lymph nodes. Gallbladder and bile ducts: Prior cholecystectomy. Upper abdomen: Elevation of the right hemidiaphragm. IMPRESSION: 1. Hypodense material within subsegmental arteries to the right lower lobe, concerning for pulmonary emboli. 2. No aortic aneurysm or dissection. 3. Nonspecific hyperdense material in the subsegmental pulmonary arteries to the right middle lobe and minimally in the subsegmental pulmonary artery to the lingula. This could represent embolized kyphoplasty cement material versus calcifications. 4. No acute pulmonary parenchymal abnormality identified. Communications: Call Doctor Pulmonary Embolism Electronically signed by: Melecio Albrecht M.D. 08/13/23 21:26 PM Extremity Venous Study 08/13/23 21:34 Exam(s): US VENOUS LEFT UPPER EXTREMITY EXAM: US Duplex Left Upper Extremity Veins CLINICAL HISTORY: Reason for exam: swelling. TECHNIQUE: Real-time duplex ultrasound scan of the left upper extremity veins integrating B-mode two-dimensional vascular structure, Doppler spectral analysis, color flow Doppler imaging and compression. COMPARISON: No relevant prior studies available. FINDINGS: Bandages at IV site at the left antecubital fossa limits evaluation. Deep veins: Unremarkable. No DVT in the internal jugular, subclavian, axillary, brachial, radial and ulnar veins. The veins demonstrate normal color flow, are normally compressible, with normal phasic flow and/or augmentation response. Superficial veins: Unremarkable. No thrombus in the visualized basilic and cephalic veins. Soft tissues: No acute abnormality. IMPRESSION: No evidence for deep venous thrombosis. Electronically signed by: Gallo Johnston M.D. 08/14/23 02:12 AM Venous Doppler Study 08/13/23 21:34 Exam(s): US VENOUS BILATERAL LOWER EXTREMITIES EXAM: US Duplex Bilateral Lower Extremities Veins CLINICAL HISTORY: Reason for exam: swelling. TECHNIQUE: Real-time duplex ultrasound scan of the bilateral lower extremity veins integrating B-mode two-dimensional vascular structure, Doppler spectral analysis, color flow Doppler imaging and compression. COMPARISON: No relevant prior studies available. FINDINGS: Limited by body habitus. Right deep veins: Unremarkable. No DVT in the right common femoral, femoral, proximal deep femoral or popliteal veins. The veins demonstrate normal color flow, are normally compressible, with normal phasic flow and/or augmentation response. Right superficial veins: Unremarkable. No thrombus in the visualized right great saphenous vein. Left deep veins: Unremarkable. No DVT in the left common femoral, femoral, proximal deep femoral or popliteal veins. The veins demonstrate normal color flow, are normally compressible, with normal phasic flow and/or augmentation response. Left superficial veins: Unremarkable. No thrombus in the visualized left great saphenous vein. Soft tissues: No popliteal cyst. IMPRESSION: No evidence of deep venous thrombosis. Electronically signed by: Gallo Johnston M.D. 08/14/23 01:23 AM ECG Additional Comments: EKG per my interpretation wtih NSR at 67bpm, normal axis, VC=114, QRS=84, CVt=864, no acute ischemic changes. SImilar to prior study Code Status & VTE Plan VTE Prophylaxis Plan VTE Prophylaxis will be ordered: Yes PG Care Time/CCT Total # of Minutes Spent Total Time Spent with Patient: Total time spent is greater than 50% in coordination of care (as documented) at patient's floor/unit and/or counseling patient: Coding Level of Care Code 06158 INT INP/OBS CARE 3/75MIN Diagnoses Pulmonary embolism I26.99 Acute cor pulmonale presence: unspecified Chronicity: acute Pulmonary embolism type: unspecified Back spasm M62.830 Panhypopituitarism E23.0 Left upper extremity swelling M79.89 HTN (hypertension), benign I10 Hyperlipidemia, unspecified hyperlipidemia type E78.5 Hyperlipidemia type: unspecified (1) Pulmonary embolism Acute cor pulmonale presence: unspecified Chronicity: acute Pulmonary embolism type: unspecified Qualified Code(s): I26.99 - Other pulmonary embolism without acute cor pulmonale (6) Hyperlipidemia Hyperlipidemia type: unspecified Qualified Code(s): E78.5 - Hyperlipidemia, unspecified
[2023-08-13] MEDS: Heparin IV Adult Wt-Based Standard w/ INITIAL Bolus Protocol IV STA (22:41)
[2023-08-13] MEDS ORDERED: ONDANSETRON INJ 2 MG/ML 2 ML VIAL IV PRN (23:52)
[2023-08-13] MEDS ORDERED: GLUCOSE 10 TAB/TUBE PO PRN (23:52)
[2023-08-13] MEDS ORDERED: CARBOHYDRATES FOR HYPOGLYCEMIA PO PRN (23:52)
[2023-08-13] MEDS ORDERED: DEXTROSE 50% 50 ML SYRINGE IV PRN (23:52)
[2023-08-13] MEDS ORDERED: GLUCAGON FOR INJ 1 MG VIAL SQ PRN (23:52)
[2023-08-13] MEDS ORDERED: GLUCOSE 40% GEL 15 GM TUBE PO PRN (23:52)
[2023-08-14] MEDS: ONDANSETRON INJ 2 MG/ML 2 ML VIAL IV STA (00:19)
[2023-08-14] MEDS: MAGNESIUM SULFATE / D5W 1 GM/100 ML BAG IV STA (00:19)
[2023-08-14] MEDS: HEPARIN SOD (PORCINE) 1000 UNIT/ML IV ONE (00:56)
[2023-08-14] MEDS: HEPARIN SODIUM/DEXTROSE 25,000 UNITS/500 ML BAG IV SCH (00:56)
[2023-08-14] MEDS: LIDOCAINE 5% 1 PATCH TD STA (00:57)
[2023-08-14 01:14] LABS: INR 1.1 (0.9-1.1); Prothrombin Time 11.6 Seconds (9.0-12.0)
--- NOTE | 2023-08-14 01:23 | Ultrasound Report ---
Exam(s): US VENOUS BILATERAL LOWER EXTREMITIES EXAM: US Duplex Bilateral Lower Extremities Veins CLINICAL HISTORY: Reason for exam: swelling. TECHNIQUE: Real-time duplex ultrasound scan of the bilateral lower extremity veins integrating B-mode two-dimensional vascular structure, Doppler spectral analysis, color flow Doppler imaging and compression. COMPARISON: No relevant prior studies available. FINDINGS: Limited by body habitus. Right deep veins: Unremarkable. No DVT in the right common femoral, femoral, proximal deep femoral or popliteal veins. The veins demonstrate normal color flow, are normally compressible, with normal phasic flow and/or augmentation response. Right superficial veins: Unremarkable. No thrombus in the visualized right great saphenous vein. Left deep veins: Unremarkable. No DVT in the left common femoral, femoral, proximal deep femoral or popliteal veins. The veins demonstrate normal color flow, are normally compressible, with normal phasic flow and/or augmentation response. Left superficial veins: Unremarkable. No thrombus in the visualized left great saphenous vein. Soft tissues: No popliteal cyst. IMPRESSION: No evidence of deep venous thrombosis. Electronically signed by: Gallo Johnston M.D. 08/14/23 01:23 AM
[2023-08-14] MEDS: MoRPHine SULFATE 4 MG/ML 1 ML CARP\\VIAL IV PRN (01:27)
--- NOTE | 2023-08-14 02:12 | Ultrasound Report ---
Exam(s): US VENOUS LEFT UPPER EXTREMITY EXAM: US Duplex Left Upper Extremity Veins CLINICAL HISTORY: Reason for exam: swelling. TECHNIQUE: Real-time duplex ultrasound scan of the left upper extremity veins integrating B-mode two-dimensional vascular structure, Doppler spectral analysis, color flow Doppler imaging and compression. COMPARISON: No relevant prior studies available. FINDINGS: Bandages at IV site at the left antecubital fossa limits evaluation. Deep veins: Unremarkable. No DVT in the internal jugular, subclavian, axillary, brachial, radial and ulnar veins. The veins demonstrate normal color flow, are normally compressible, with normal phasic flow and/or augmentation response. Superficial veins: Unremarkable. No thrombus in the visualized basilic and cephalic veins. Soft tissues: No acute abnormality. IMPRESSION: No evidence for deep venous thrombosis. Electronically signed by: Gallo Johnston M.D. 08/14/23 02:12 AM
[2023-08-14] MEDS: ACETAMINOPHEN 325 MG TAB PO PRN (05:10)
[2023-08-14] MEDS: LEVOTHYROXINE SODIUM 50 MCG TABLET PO SCH (06:30)
[2023-08-14] MEDS: LEVOTHYROXINE SODIUM 200 MCG TABLET PO SCH (06:30)
[2023-08-14 07:20] LABS: Mean Corpuscular Hemoglobin 27.8 pg (25.0-34.0); Mean Corpuscular Hgb Conc 32.5 g/dL (32.0-36.0); Mean Corpuscular Volume 85.7 fL (80.0-100.0); Mean Platelet Volume 10.7 fL (9.4-12.4); Platelet Count 140 K/uL (130-400); RDW Coefficient of Variation 16.7 % (11.5-14.5); RDW Standard Deviation 51.6 fL (36.4-46.3); Red Blood Count 4.67 M/uL (4.70-6.10); White Blood Count 11.58 K/ul (4.8-10.8)
[2023-08-14 07:34] LABS: Calcium 8.1 mg/dl (8.6-10.3); Potassium 4.1 mmol/L (3.5-5.1)
--- NOTE | 2023-08-14 07:37 | XRay Report ---
XR chest 1V not portable CLINICAL HISTORY: weakness COMPARISON STUDY: Chest radiograph June 17, 2018. FINDINGS: There is no pneumothorax or pleural effusion. No consolidation is identified to suggest pne umonia. Linear bibasilar densities represent atelectasis or scarring. Low lung volumes are unchanged. Thoracolumbar spine fusion is partially imaged. Cardiomediastinal silhouette is stable. Mild elevati on of the right hemidiaphragm is unchanged. IMPRESSION: No acute cardiopulmonary findings. No change in appearance of the chest. ACT 112: Negative or not required by law. Electronically signed by: Jack Carr M.D. 08/14/2023 7:35 AM
[2023-08-14 07:39] LABS: BUN Creatinine Ratio 12.3 (10-20); Creatinine Clr Calc Pharmacy 153.2 ml/min; Est GFR (African American) 119.2 ml/min; Est GFR (Non-African American) 102.8 ml/min
--- NOTE | 2023-08-14 07:43 | Hospitalist Progress Note ---
Date of Service August 14, 2023 Assessment & Plan (1) Pulmonary embolism: Plan: Likely PE was noted in the subsegmental arteries to the right lower lobe. This may be due to his weakness preventing him from moving and getting around more recently, in combination with his numerous chronic conditions. He is currently hemodynamically stable and has no chest pain, shortness of breath, or difficulty breathing. He was placed on IV heparin. -switch IV heparin to apixiban (2) Back spasm: Plan: Positional and improved greatly after administration of IV valium. Morphine administered this AM after examination due to pain. Hx chronic pain. 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 Blood pressure mildly low in the ER, was given Hydrocortisone 100mg IV x 1 dose -BP this am 112/61 -increase home medication regimen of hydrocortisone 5 mg tid, start hydrocortisone 10 mg tid -Continue Synthroid 250mcg po daily and Cytomel 5mcg po bid -Continue Prednisone 1mg po tid ? -Weekly testosterone (4) Left upper extremity swelling: Plan: -hx lyphedema secondary to lack of movement, currently receiving home PT weekly, doppler of left lower extremity negative for acute DVT -denies shortness of breath, chest pain, difficulty breathing -elevate extremities -PT/OT, consider increasing home PT -continue compression stockings (5) HTN (hypertension), benign: Plan: Chronic, current BP 112/61 -order echo -Continue Spironolactone -Continue Metoprolol (6) Hyperlipidemia: Plan: Chronic, stable -Continue Atorvastatin Plan diet: DM2 code status: DNR/DNI dispo: med surg + tele dvt prophylaxis: apixiban Admission and Anticipated Discharge Date Admission Date: August 13, 2023 Supervising Physician Co-Signing Physician Notes I personally examined the patient and verified all wilson points of history and exam, discussed case, and agree with decision making with Dr Corrales Discussed with resident physician, patient doing better, needing to work with PT, but back spasms better. By the time I saw him he was sleeping comfortably, and given his overall stable status but requiring therapy, I did not feel it beneficial to wake himparticularly given the risk of setting off some back spasms without letting him get enough rest. Vitals noted, Asleep and appearing extremely comfortable. Breathing unlabored no accessory muscle use, no notable lateralizing signs. Skin without rashes pallor or icterus. Back spasmsValium, magnesium IV, symptom control, gentle OMT Done yesterday, can work with him more if needed, but right now his symptoms appear to have abated. PT/OT eval and treat Weaknessprobably multifactorial, need to revisit history once he is more able, PT/OT eval and treat, may need rehab. PEtruly seems to be an incidental finding, but given that he has had multiple venous thromboembolic events in the past, really likely would benefit from long- term anticoagulation anyway have started Eliquis morbid obesity with BMI of 47.2probably contributing to his thromboembolic risk, as well as his back pain. Subjective CC: pulmonary embolism, extremity edema, and weakness Mahesh is a 63 year old male with an extensive medical history including diabetes, lymphedema, panhypopituitarism, and hyperthyroidism presenting with pulmonary embolism, overall weakness, and upper and lower extremity edema. He feels that he has been steadily regressing for years, but on Thursday night, he started noting bilateral upper extremity edema, left greater than right. He also had bilateral lower extremity edema. He mentioned that he couldn't balance well and felt that his strength was decreased to the point where he could not put on his pants. Due to this weakness, he has not been able to carry out daily activities of living and has mostly been static. CTA revealed pulmonary embolism and he was started on heparin. Doppler LLE was negative for acute DVT. BUN:creatinine 12.3. TSH < 0.010 uIu/ml, free T4 1.28 ng/dl, free T3 2.82 ng/dl. Morphine was administered for his lower back pain. Hemoglobin A1C is 7.0. He takes metformin but does not regularly measure his blood glucose levels. This AM, he denies shortness of breath, chest pain, or difficulty breathing. He reports lower back pain, neuropathies in all his extremities, and significant swelling. His PCP is Dr. Jacob. Review of Systems Review of Systems: All systems reviewed & are unremarkable except as noted in HPI & below Physical Exam Physical Exam: General: Alert and oriented x 3, in no acute distress Respiratory: Clear to auscultation bilaterally, no W/R/R Cardiology: RRR, no M/R/G. Edematous extremities, but no pitting edema. Skin: healing uclers on both lower extremities. erythematous, dry, tight skin on lower extremities Results & Data Results & Data Vital Signs (Past 12 Hours) Vital Signs Temp Pulse Pulse Resp BP BP Pulse Ox 08/14/23 05:08 36.9 C 69 16 115/69 94 08/14/23 05:08 08/14/23 05:08 64 08/14/23 04:15 08/14/23 03:37 60 22 129/59 L 93 08/14/23 00:14 58 L 16 129/59 L 92 08/13/23 22:10 58 L 16 154/78 H 92 08/13/23 19:49 59 L O2 Del Method O2 Flow Rate 08/14/23 05:08 Nasal Cannula 2 08/14/23 05:08 Nasal Cannula 2 08/14/23 05:08 08/14/23 04:15 Nasal Cannula 2 08/14/23 03:37 Nasal Cannula 2 08/14/23 00:14 Room Air 08/13/23 22:10 Room Air 08/13/23 19:49 Laboratory Results 08/14/23 08/14/23 08/14/23 07:16 06:59 00:53 WBC 11.58 H RBC 4.67 L Hgb 13.0 L Hct 40.0 L MCV 85.7 MCH 27.8 MCHC 32.5 RDW Std Deviation 51.6 H RDW Coeff of Tristan 16.7 H Plt Count 140 MPV 10.7 Immature Gran % (Auto) Neut % (Auto) Lymph % (Auto) Yell % (Auto) Eos % (Auto) Baso % (Auto) Neut # (Auto) Lymph # (Auto) Yell # (Auto) Eos # (Auto) Baso # (Auto) Immature Gran # (Auto) PT 11.6 INR 1.1 Heparin Anti-Xa, Unfract 0.36 Sodium 134 L Potassium 4.1 Chloride 102 Carbon Dioxide 27 Anion Gap 5 BUN 8 Creatinine 0.65 Est Cr Clr Drug Dosing 153.2 Est GFR ( Amer) 119.2 Est GFR (Non-Af Amer) 102.8 BUN/Creatinine Ratio 12.3 Glucose 160 H POC Glucose 163 H Estimat Average Glucose 154 Hemoglobin A1c 7.0 H Calcium 8.1 L Phosphorus 2.1 L Magnesium Total Bilirubin AST ALT Alkaline Phosphatase Troponin I High Sens B-Natriuretic Peptide 40 Total Protein Albumin Globulin Albumin/Globulin Ratio TSH Free T4 Free T3 2.82 Urine Color Urine Appearance Urine pH Ur Specific [place] Urine Protein Urine Glucose (UA) Urine Ketones Urine Blood Urine Nitrite Urine Bilirubin Urine Urobilinogen Ur Leukocyte Esterase 08/13/23 08/13/23 19:50 17:45 WBC 12.24 H RBC 5.33 Hgb 15.0 Hct 44.9 MCV 84.2 MCH 28.1 MCHC 33.4 RDW Std Deviation 51.3 H RDW Coeff of Tristan 17.0 H Plt Count 168 MPV 11.0 Immature Gran % (Auto) 1.0 Neut % (Auto) 79.7 Lymph % (Auto) 11.0 Yell % (Auto) 4.2 Eos % (Auto) 3.7 Baso % (Auto) 0.4 Neut # (Auto) 9.75 H Lymph # (Auto) 1.35 Yell # (Auto) 0.52 Eos # (Auto) 0.45 Baso # (Auto) 0.05 Immature Gran # (Auto) 0.12 PT INR Heparin Anti-Xa, Unfract Sodium 135 L Potassium 4.6 Chloride 101 Carbon Dioxide 28 Anion Gap 6 BUN 8 Creatinine 0.68 Est Cr Clr Drug Dosing Not Reportable Est GFR ( Amer) 117.0 Est GFR (Non-Af Amer) 100.9 BUN/Creatinine Ratio 11.8 Glucose 149 H POC Glucose Estimat Average Glucose Hemoglobin A1c Calcium 8.8 Phosphorus Magnesium 1.7 Total Bilirubin 0.6 AST 48 H ALT 35 Alkaline Phosphatase 84 Troponin I High Sens 8.6 B-Natriuretic Peptide Total Protein 6.8 Albumin 3.7 Globulin 3.1 Albumin/Globulin Ratio 1.2 TSH < 0.010 L Free T4 1.28 Free T3 Urine Color Yellow Urine Appearance Clear Urine pH 8.0 H Ur Specific [place] 1.010 Urine Protein Negative Urine Glucose (UA) Negative Urine Ketones Negative Urine Blood Negative Urine Nitrite Negative Urine Bilirubin Negative Urine Urobilinogen Negative Ur Leukocyte Esterase Negative Diagnostic Findings Exam(s): CTA CHEST IV Amt: 118 ml optiray 320 EXAM: CT Angiography Chest With Intravenous Contrast CLINICAL HISTORY: Reason for exam: PE. TECHNIQUE: Axial computed tomographic angiography images of the chest with intravenous contrast. CTDI is 247.83 mGy and DLP is 3405.53 mGy-cm. Automated exposure control was utilized for the study. A dose lowering technique was utilized adhering to the principles of ALARA. MIP reconstructed images were created and reviewed. COMPARISON: None FINDINGS: Pulmonary arteries: Hypodense material within subsegmental arteries to the right lower lobe, concerning for pulmonary emboli. Aorta: No acute findings. No aortic aneurysm or dissection. Lungs: Mild dependent and bibasilar atelectasis. No focal consolidation. Pleural space: Unremarkable. No significant effusion. No pneumothorax. Heart: RV/LV ratio is close to 1. No cardiomegaly. No significant pericardial effusion. Bones/joints: Nonspecific hyperdense material in the subsegmental pulmonary arteries to the right middle lobe and minimally in the subsegmental pulmonary artery to the lingula. This could represent embolized kyphoplasty cement material versus calcifications. Spinal fusion rods. Laminectomies in the lower thoracic spine. Kyphoplasty change in the T5 vertebral body. Chronic compression deformities involving T3, T4, T5, T7, T8, T11, T12, L1, and L2. No dislocation. Soft tissues: Unremarkable. Lymph nodes: Unremarkable. No enlarged lymph nodes. Gallbladder and bile ducts: Prior cholecystectomy. Upper abdomen: Elevation of the right hemidiaphragm. IMPRESSION: 1. Hypodense material within subsegmental arteries to the right lower lobe, concerning for pulmonary emboli. 2. No aortic aneurysm or dissection. 3. Nonspecific hyperdense material in the subsegmental pulmonary arteries to the right middle lobe and minimally in the subsegmental pulmonary artery to the lingula. This could represent embolized kyphoplasty cement material versus calcifications. 4. No acute pulmonary parenchymal abnormality identified. Exam(s): US VENOUS LEFT UPPER EXTREMITY EXAM: US Duplex Left Upper Extremity Veins CLINICAL HISTORY: Reason for exam: swelling. TECHNIQUE: Real-time duplex ultrasound scan of the left upper extremity veins integrating B-mode two-dimensional vascular structure, Doppler spectral analysis, color flow Doppler imaging and compression. COMPARISON: No relevant prior studies available. FINDINGS: Bandages at IV site at the left antecubital fossa limits evaluation. Deep veins: Unremarkable. No DVT in the internal jugular, subclavian, axillary, brachial, radial and ulnar veins. The veins demonstrate normal color flow, are normally compressible, with normal phasic flow and/or augmentation response. Superficial veins: Unremarkable. No thrombus in the visualized basilic and cephalic veins. Soft tissues: No acute abnormality. IMPRESSION: No evidence for deep venous thrombosis. Exam(s): US VENOUS BILATERAL LOWER EXTREMITIES EXAM: US Duplex Bilateral Lower Extremities Veins CLINICAL HISTORY: Reason for exam: swelling. TECHNIQUE: Real-time duplex ultrasound scan of the bilateral lower extremity veins integrating B-mode two-dimensional vascular structure, Doppler spectral analysis, color flow Doppler imaging and compression. COMPARISON: No relevant prior studies available. FINDINGS: Limited by body habitus. Right deep veins: Unremarkable. No DVT in the right common femoral, femoral, proximal deep femoral or popliteal veins. The veins demonstrate normal color flow, are normally compressible, with normal phasic flow and/or augmentation response. Right superficial veins: Unremarkable. No thrombus in the visualized right great saphenous vein. Left deep veins: Unremarkable. No DVT in the left common femoral, femoral, proximal deep femoral or popliteal veins. The veins demonstrate normal color flow, are normally compressible, with normal phasic flow and/or augmentation response. Left superficial veins: Unremarkable. No thrombus in the visualized left great saphenous vein. Soft tissues: No popliteal cyst. IMPRESSION: No evidence of deep venous thrombosis. Resident Activity Tracking Resident Involvement: Resident Care Provided Care Provided: Adult Hospital Medicine (1) Pulmonary embolism Acute cor pulmonale presence: unspecified Chronicity: acute Pulmonary embolism type: unspecified Qualified Code(s): I26.99 - Other pulmonary embolism without acute cor pulmonale (6) Hyperlipidemia Hyperlipidemia type: unspecified Qualified Code(s): E78.5 - Hyperlipidemia, unspecified
[2023-08-14 07:54] LABS: ANTI-Xa, UFH(UnfractionatedHep 0.36 IU/ml (0.3-0.7)
[2023-08-14] MEDS: INSULIN ASPART PER UNIT CHARGE SC SCH (07:56)
[2023-08-14] MEDS: SERTRALINE HCL 100 MG TABLET PO SCH (08:01)
[2023-08-14] MEDS: CYCLOBENZAPRINE HCL 10 MG TAB PO SCH (08:01)
[2023-08-14] MEDS: PREGABALIN 150 MG CAP PO SCH (08:03)
[2023-08-14] MEDS ORDERED: POTASSIUM PHOS 3 MMOL/1 ML INFUSION IV STA (08:04)
[2023-08-14] MEDS: LIOTHYRONINE SODIUM 5 MCG TAB PO SCH (08:04)
[2023-08-14] MEDS: predniSONE 1 MG TAB PO SCH (08:04)
[2023-08-14] MEDS: HYDROCORTISONE 10 MG TAB PO SCH ×2 (08:04→19:46)
[2023-08-14] MEDS: METOPROLOL TARTRATE 50 MG TAB PO SCH (08:05)
[2023-08-14] MEDS: BACLOFEN 20 MG TAB PO SCH (08:05)
[2023-08-14] MEDS: SULFA/TRIMETH 400/80MG TAB PO SCH (08:06)
[2023-08-14] MEDS: SPIRONOLACTONE 25 MG TAB PO SCH (08:06)
[2023-08-14] MEDS: POTASSIUM PHOSPHATE 15 MMOL in SODIUM CHLORIDE 0.9% 250 ML IV ONE (09:21)
[2023-08-14 09:45] LABS: Estimated Average Glucose 154 mg/dl
[2023-08-14] MEDS: APIXABAN 5 MG TABLET PO SCH (10:18)
[2023-08-14] MEDS: MoRPHine SULFATE 2 MG/ML CARP IV PRN (14:41)
[2023-08-14] MEDS: diazePAM 5 MG TABLET PO ONE (15:34)
[2023-08-14] MEDS ORDERED: MAG SULFATE 50% 1GM/2ML VIAL IV ONE (15:53)
[2023-08-14] MEDS: MAGNESIUM SULFATE / D5W 1 GM/100 ML BAG IV SCH (17:12)
--- NOTE | 2023-08-14 18:32 | Billing Data ---
Date of Service August 14, 2023 Coding Level of Care Code 74716 SUB INP/OBS CARE MIN
[2023-08-14] MEDS: ASPIRIN 81 MG ECTAB PO SCH (19:46)
[2023-08-14] MEDS: traZODone HCL 100 MG TAB PO SCH (19:47)
[2023-08-14] MEDS: ATORVASTATIN 20 MG TAB PO SCH (19:48)
--- NOTE | 2023-08-15 07:16 | Electrocardiogram Report ---
Test Reason : Blood Pressure : / mmHG Vent. Rate : 067 BPM Atrial Rate : 067 BPM P-R Int : 146 ms QRS Dur : 084 ms QT Int : 430 ms P-R-T Axes : 002 043 066 degrees QTc Int : 454 ms Normal sinus rhythm Abnormal ECG When compared with ECG of 17-JUN-2018 09:57, T wave inversion now evident in Anterior leads Confirmed by Bruno Jones ([id number] on 08/15/2023 7:15:44 AM Referred By: REFERRED SELF Confirmed By:Bruno Jones
[2023-08-15 10:02] LABS: Hematocrit (blood only) 44.1 % (42.0-52.0); Hemoglobin 14.1 g/dl (14.0-18.0); Mean Corpuscular Hemoglobin 27.5 pg (25.0-34.0); Mean Corpuscular Volume 86.1 fL (80.0-100.0); Mean Platelet Volume 10.7 fL (9.4-12.4); Platelet Count 158 K/uL (130-400); RDW Coefficient of Variation 17.2 % (11.5-14.5); RDW Standard Deviation 53.8 fL (36.4-46.3); Red Blood Count 5.12 M/uL (4.70-6.10); White Blood Count 8.14 K/ul (4.8-10.8)
[2023-08-15 10:24] LABS: BUN Creatinine Ratio 13.4 (10-20); Calcium 8.7 mg/dl (8.6-10.3); Creatinine Clr Calc Pharmacy 147.3 ml/min; Est GFR (African American) 117.7 ml/min; Est GFR (Non-African American) 101.5 ml/min; Magnesium 2.5 mg/dl (1.7-2.4); Phosphorus 3.2 mg/dl (2.5-4.9); Potassium 4.3 mmol/L (3.5-5.1)
[2023-08-15] MEDS: diazePAM 5 MG TABLET PO PRN (10:27)
[2023-08-15 10:28] LABS: ANTI-Xa, UFH(UnfractionatedHep > 1.50 IU/ml (0.3-0.7)
--- NOTE | 2023-08-15 18:12 | Billing Data ---
Date of Service August 15, 2023 Coding Level of Care Code 54913 SUB INP/OBS CARE MIN
--- NOTE | 2023-08-15 18:13 | Billing Data ---
Date of Service August 15, 2023 Coding Level of Care Code 09942 SUB INP/OBS CARE 35MIN Comment please disregard 233 - 232 for today thanks
[2023-08-16] MEDS: ALUMINUM/MAGNESIUM SUSP 30 ML UDC PO PRN (03:37)
[2023-08-16 08:03] LABS: Hematocrit (blood only) 43.9 % (42.0-52.0); Hemoglobin 13.9 g/dl (14.0-18.0); Mean Corpuscular Hemoglobin 27.6 pg (25.0-34.0); Mean Corpuscular Hgb Conc 31.7 g/dL (32.0-36.0); Mean Corpuscular Volume 87.3 fL (80.0-100.0); Mean Platelet Volume 10.5 fL (9.4-12.4); Platelet Count 147 K/uL (130-400); RDW Coefficient of Variation 17.3 % (11.5-14.5); RDW Standard Deviation 55.1 fL (36.4-46.3); Red Blood Count 5.03 M/uL (4.70-6.10); White Blood Count 7.66 K/ul (4.8-10.8)
[2023-08-16 08:28] LABS: Anion Gap 2 (3-11); Blood Urea Nitrogen 12 mg/dl (6-23); Calcium 8.6 mg/dl (8.6-10.3); Carbon Dioxide 29 mmol/L (21-32); Chloride 106 mmol/L (98-107); Est GFR (African American) 123.2 ml/min; Est GFR (Non-African American) 106.3 ml/min; Glucose 141 mg/dl (70-99(Fasting)); Sodium 137 mmol/L (136-145)
--- NOTE | 2023-08-16 10:04 | Hospitalist Progress Note ---
Date of Service August 16, 2023 Assessment & Plan (1) Pulmonary embolism: Plan: CTA result as above. Likely PE noted in the subsegmental arteries to the right lower lobe. Comment made of possible embolized kyphoplasty cement material vs calcifications. Patient has had multiple back surgeries but none recently. He is HD stable. Adequate oxygenation on room air. No complaint of chest pain, pleuritic pain or shortness of breath. Low risk for mortality per PESI score. 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 Currently not on anticoagulation. -Admit to medical with telemetry -Heparin bolus and gtt -Eliquis 10 mg twice daily x 7 days. Then Eliquis 5 mg twice daily x 3 months. (2) Generalized weakness: Plan: -Awaiting dispo to SNF, following PT/OT evaluation. (3) Back spasm: Plan: Positional. Likely provoked by laying flat for CT. Improved greatly after administration of IV Valium. Patient comfortable on reassessment -Heat as needed -Tylenol PRN -Morphine PRN -Lidoderm patch -Continue Lyrica. Stopped cyclobenzaprine. -Started diazepam 3 times daily as needed- patient with chronic pain (4) Panhypopituitarism: Plan: Patient with remote history of pituitary tumor s/p gamma knife excision. He is with panhypopituitarism. Follows with Endocrinology. He reports missing several doses of his medication today. Blood pressure mildly low in the ER. He was given Hydrocortisone 100mg IV x 1 dose -Home hydrocortisone increased to 10 mg 3 times daily, up from 5 mg. -Continue Synthroid 250mcg po daily and Cytomel 5mcg po BID -Continue Prednisone 1mg po TID -Weekly testosterone -Consider endocrine consult (5) Left upper extremity swelling: Plan: Patient with complaint of LUE and LLE edema. He does appear to be edematous, possibly slightly increased in LLE. Denies orthopnea, cough, SOB. Doppler of LLE is NEGATIVE for acute DVT. Reported history of lymphedema in the past secondary to lack of movement. He has had PT for it in the past -Continue to monitor (6) HTN (hypertension), benign: Plan: Chronic. BP at goal. -Continue home spironolactone, metoprolol. (7) Hyperlipidemia: Plan: Chronic. Stable -Continue Atorvastatin Admission and Anticipated Discharge Date Admission Date: August 13, 2023 Supervising Physician Co-Signing Physician Notes I personally examined the patient and verified all wilson points of history and exam, discussed case, and agree with decision making with Dr Corrales back spasms better. Noted that he did have a little bit of an increase in spasm after PT, but nothing too severe. Was very lightheaded. Back spasms No if improved significantly (had magnesium, Valium, symptom controlling medicines, gentle OMT) Weaknessprobably multifactorial, the main 2 elements appear to be his lumbar spinal stenosis and possibly his adrenal insufficiency --- spinal stenosis - suggested by his roughly 16 prior back surgeries as well as predominantly left leg weakness. We discussed initially working with PT and if he is showing progress, no further diagnosis or treatment needed, but if it seems like his left leg weakness is a focal limiter towards improvement, then consider MRI with goal of looking for a focus that may benefit from injection --- hypopituitarism/adrenal insufficiencyright now he is on double his home dose of hydrocortisone, and his regular home dose of prednisone, and we discussed that the main symptom that would fit with not being on enough steroid that we are seeing would be his lightheadedness, but also certainly it could be a contributor to his vague overall weakness. We discussed if this seems to be the rate limiter, we would definitely need to enlist endocrinologydiscussed that with endocrine not coming to the hospital, we can certainly discuss his case with them, but we will likely get better input if they are able to see him [id number]. With that in mind, if he shows enough progress that he can do well enough with therapy to go to rehab, and do well enough at rehab to get home, then it would make the most sense to see endocrine in the office. At the same time if we are hitting a roadblock that seems to possibly be adrenal insufficiency mediated then we will need to discuss with endocrine even while he is still in facility PEtruly seems to be an incidental finding, but given that he has had multiple venous thromboembolic events in the past, really likely would benefit from long- term anticoagulation anyway have started Eliquis morbid obesity with BMI of 47.2probably contributing to his thromboembolic risk, as well as his back pain. Subjective Patient is seated in bed comfortably this morning. He denies any back spasms at this time. He attempted to avoid pain medications yesterday and thinks she did okay without them. Had some chest discomfort overnight, for which he received some Maalox. Review of Systems Review of Systems: All systems reviewed & are unremarkable except as noted in HPI & below Physical Exam Physical Exam: General: No acute distress HEENT: PERRLA. Normal conjunctiva, anicteric sclera. Oropharynx normal. Respiratory: Normal respiratory effort, CTABL. Cardiovascular: RRR without murmurs, gallops, or rubs. No pedal edema. GI: Large, protuberant abdomen. Nontender x4 quadrants to palpation. Neuro: Alert and oriented x3. Results & Data Results & Data Vital Signs (Past 12 Hours) Vital Signs Temp Pulse Pulse Resp BP BP Pulse Ox 08/16/23 07:49 36.5 C 53 L 18 109/67 91 08/16/23 07:11 49 L 08/16/23 02:24 36.3 C L 52 L 18 129/71 92 08/16/23 00:54 08/15/23 23:31 36.6 C 58 L 16 106/66 90 O2 Del Method 08/16/23 07:49 Room Air 08/16/23 07:11 08/16/23 02:24 Room Air 08/16/23 00:54 Room Air 08/15/23 23:31 Room Air Resident Activity Tracking Resident Involvement: Resident Care Provided Care Provided: Adult Hospital Medicine (1) Pulmonary embolism Acute cor pulmonale presence: unspecified Chronicity: acute Pulmonary embolism type: unspecified Qualified Code(s): I26.99 - Other pulmonary embolism without acute cor pulmonale (7) Hyperlipidemia Hyperlipidemia type: unspecified Qualified Code(s): E78.5 - Hyperlipidemia, unspecified
--- NOTE | 2023-08-16 12:22 | Electrocardiogram Report ---
Test Reason : Blood Pressure : / mmHG Vent. Rate : 064 BPM Atrial Rate : 064 BPM P-R Int : 146 ms QRS Dur : 088 ms QT Int : 450 ms P-R-T Axes : 007 025 053 degrees QTc Int : 464 ms Normal sinus rhythm Nonspecific ST and T wave abnormality Abnormal ECG When compared with ECG of 13-AUG-2023 17:40, No significant change was found Confirmed by Jed Monroy ([id number]) on 08/16/2023 12:21:47 PM Referred By: REFERRED SELF Confirmed By:Oscar Monroy
--- NOTE | 2023-08-16 17:41 | Billing Data ---
Date of Service August 16, 2023 Coding Level of Care Code 36591 SUB INP/OBS CARE MIN
--- NOTE | 2023-08-17 06:43 | Hospitalist Progress Note ---
Date of Service August 17, 2023 Assessment & Plan (1) Pulmonary embolism: Plan: CTA showed likely PE noted in the subsegmental arteries to the right lower lobe; comment made of possible embolized kyphoplasty cement material vs calcifications. Patient has had multiple back surgeries but none recently. He is HD stable. Adequate oxygenation on room air. No complaint of chest pain, pleuritic pain or shortness of breath. Low risk for mortality per PESI score. 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 Currently not on anticoagulation. - s/p heparin bolus and gtt - currently on eliquis 10 mg twice daily x 7 days (last day 08/22), then eliquis 5 mg twice daily for at least 3 months (2) Generalized weakness: Plan: -Awaiting dispo to SNF, continue PT/OT while hospitalized (3) Back spasm: Plan: Positional. Likely provoked by laying flat for CT. Improved greatly after administration of IV Valium. Patient now at baseline. -Heat as needed -Tylenol PRN -Morphine PRN -Lidoderm patch -Continue Lyrica. Stopped cyclobenzaprine. -Started diazepam 3x daily as needed (4) Panhypopituitarism: Plan: Patient with remote history of pituitary tumor s/p gamma knife excision. Follows with Endocrinology. He reports missing several doses of his medication today. Blood pressure mildly low in the ER. He was given Hydrocortisone 100mg IV x 1 dose -Home hydrocortisone increased to 10 mg 3 times daily, up from 5 mg -Continue Synthroid 250mcg po daily and Cytomel 5mcg po BID -Continue Prednisone 1mg po TID -Weekly testosterone -Consider endocrine consult if needed (5) Left upper extremity swelling: Plan: Patient with complaint of LUE and LLE edema. He was edematous upon admission which has significantly improved. Denies orthopnea, cough, SOB. Doppler of LLE is NEGATIVE for acute DVT. Reported history of lymphedema in the past secondary to lack of movement. He has had PT for it in the past -Continue to monitor (6) HTN (hypertension), benign: Plan: Chronic. BP at goal. -Continue home spironolactone, metoprolol (7) Hyperlipidemia: Plan: Chronic. Stable -Continue Atorvastatin (8) Chronic osteomyelitis of spine: Plan: Pt with hx of multiple spinal/back surgeries and subsequent infections. On chronic suppressive therapy. -Continue bactrim daily Admission and Anticipated Discharge Date Admission Date: August 13, 2023 Supervising Physician Co-Signing Physician Notes ATTESTATION I also saw the patient and confirmed wilson portions of the history and exam. I agree with the impression and plan in the resident documentation, and as summarized below. No new complaints this morning; does endorse some back pain, but at his baseline. EXAM 112/62, 65, 18, 36.4, 92% on room air Respirations nonlabored Heart regular rate and rhythm DATA Labs Hemoglobin 13.7 BMP unremarkable except for glucose of 132 IMPRESSION & PLAN Pulmonary embolism Eliquis 10 mg p.o. twice daily x 7 days, then 5 mg twice daily Generalized weakness Acute on chronic back pain Symptomatic management PT Pending placement Panhypopituitarism Continue supplementation Additional per resident documentation Subjective Pt is a 63 yo male with PMH of panhypopituitarism, s/p multiple back surgeries, and HTN presenting d/t weakness and extremity edema. Pt doing well this morning. He does endorse some back pain which seems to be at his baseline. His swelling has significantly improved. He is awaiting rehab placement to build his strength and work on his balance. Review of Systems Review of Systems: As per HPI Physical Exam Physical Exam: Constitutional: well appearing, no acute distress HEENT: normocephalic, no conjunctival injection CV: RRR, no murmur Respiratory: CTA bilaterally. No rhonchi, wheezes, or crackles. No increased work of breathing MSK: no gross deformities noted Skin: warm, dry, no rashes Neuro: alert, oriented, no FND noted Psych: mood and affect congruent Results & Data Results & Data Vital Signs (Past 12 Hours) Vital Signs Temp Pulse Pulse Resp BP Pulse Ox O2 Del Method 08/17/23 03:01 36.4 C L 53 L 18 132/63 94 Room Air 08/17/23 00:56 Room Air 08/16/23 22:51 56 L 18 136/66 95 Room Air 08/16/23 21:59 53 L 08/16/23 19:33 53 L 18 110/66 91 Room Air Resident Activity Tracking Resident Involvement: Resident Care Provided Care Provided: Adult Hospital Medicine (1) Pulmonary embolism Acute cor pulmonale presence: unspecified Chronicity: acute Pulmonary embolism type: unspecified Qualified Code(s): I26.99 - Other pulmonary embolism without acute cor pulmonale (7) Hyperlipidemia Hyperlipidemia type: unspecified Qualified Code(s): E78.5 - Hyperlipidemia, unspecified
[2023-08-17 07:26] LABS: Hemoglobin 13.7 g/dl (14.0-18.0); Mean Corpuscular Hemoglobin 27.4 pg (25.0-34.0); Mean Corpuscular Hgb Conc 31.9 g/dL (32.0-36.0); Mean Platelet Volume 11.1 fL (9.4-12.4); Platelet Count 134 K/uL (130-400); RDW Coefficient of Variation 17.1 % (11.5-14.5); RDW Standard Deviation 53.5 fL (36.4-46.3); White Blood Count 8.55 K/ul (4.8-10.8)
[2023-08-17 07:42] LABS: BUN Creatinine Ratio 21.5 (10-20); Calcium 8.8 mg/dl (8.6-10.3); Creatinine Clr Calc Pharmacy 148.3 ml/min; Est GFR (African American) 119.2 ml/min; Est GFR (Non-African American) 102.8 ml/min; Potassium 4.7 mmol/L (3.5-5.1)
--- NOTE | 2023-08-18 06:38 | Hospitalist Progress Note ---
Date of Service August 18, 2023 Assessment & Plan (1) Pulmonary embolism: Plan: CTA showed likely PE noted in the subsegmental arteries to the right lower lobe; comment made of possible embolized kyphoplasty cement material vs calcifications. Patient has had multiple back surgeries but none recently. He is HD stable. Adequate oxygenation on room air. No complaint of chest pain, pleuritic pain or shortness of breath. Low risk for mortality per PESI score. 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 Previously not on anticoagulation. - s/p heparin bolus and gtt - currently on eliquis 10 mg twice daily x 7 days (last day 08/22), then eliquis 5 mg twice daily for at least 3 months (2) Generalized weakness: Plan: -Awaiting dispo to SNF, continue PT/OT while hospitalized (3) Back spasm: Plan: Positional. Likely provoked by laying flat for CT. Improved greatly after administration of IV Valium. Patient now at baseline. -Heat as needed -Tylenol PRN -Morphine PRN; in coming days, will attempt to wean to oral oxycodone 5 mg q8hr (~same MME as current regimen) -Lidoderm patch -Continue Lyrica, baclofen -Continue diazepam 3x daily PRN (4) Panhypopituitarism: Plan: Patient with remote history of pituitary tumor s/p gamma knife excision. Follows with Endocrinology. He reports missing several doses of his medication today. Blood pressure mildly low in the ER. He was given Hydrocortisone 100mg IV x 1 dose -Home hydrocortisone increased to 10 mg 3 times daily, up from 5 mg -Continue Synthroid 250mcg po daily and Cytomel 5mcg po BID -Continue Prednisone 1mg po TID -Weekly testosterone -Consider endocrine consult if needed (5) Left upper extremity swelling: Plan: Patient with complaint of LUE and LLE edema. He was edematous upon admission which has significantly improved. Denies orthopnea, cough, SOB. Doppler of LLE is NEGATIVE for acute DVT. Reported history of lymphedema in the past secondary to lack of movement. He has had PT for it in the past -Continue to monitor (6) HTN (hypertension), benign: Plan: Chronic. BP at goal. -Continue home spironolactone, metoprolol (7) Hyperlipidemia: Plan: Chronic. Stable -Continue Atorvastatin (8) Chronic osteomyelitis of spine: Plan: Pt with hx of multiple spinal/back surgeries and subsequent infections. On chronic suppressive therapy. -Continue bactrim daily Admission and Anticipated Discharge Date Admission Date: August 13, 2023 Supervising Physician Co-Signing Physician Notes ATTESTATION I also saw the patient and confirmed wilson portions of the history and exam. I agree with the impression and plan in the resident documentation, and as summarized below. Patient without complaints. Looking forward to getting to rehab so he can begin his recovery. EXAM 126/65, 67, 16, 36.7, 93% on room air Respirations nonlabored Heart regular rate and rhythm DATA Labs Hemoglobin 15.0 BMP unremarkable except for sodium 135 and glucose 167 IMPRESSION & PLAN Pulmonary embolism Eliquis 10 mg p.o. twice daily x 7 days, then 5 mg twice daily Generalized weakness Acute on chronic back pain Symptomatic management PT Pending placement Panhypopituitarism Continue supplementation Additional per resident documentation Subjective Pt is a 63 yo male with PMH of panhypopituitarism, s/p multiple back surgeries, and HTN presenting d/t weakness and extremity edema. Pt doing well this AM. No new concerns. He just wants to get up and moving. Review of Systems Review of Systems: As per HPI Physical Exam Physical Exam: Constitutional: well appearing, no acute distress HEENT: normocephalic, no conjunctival injection CV: clinically well perfused Respiratory: no increased work of breathing MSK: no gross deformities noted Skin: warm, dry, no rashes Neuro: alert, oriented, no FND noted Psych: mood and affect congruent Results & Data Results & Data Vital Signs (Past 12 Hours) Vital Signs Temp Pulse Pulse Resp BP Pulse Ox O2 Del Method 08/18/23 02:55 36.3 C L 55 L 18 128/70 90 Room Air 08/18/23 01:08 Room Air 08/17/23 23:02 36.4 C L 58 L 18 104/61 93 Room Air 08/17/23 21:59 54 L 08/17/23 19:20 36.7 C 58 L 18 112/66 92 Room Air Resident Activity Tracking Resident Involvement: Resident Care Provided Care Provided: Adult Hospital Medicine (1) Pulmonary embolism Acute cor pulmonale presence: unspecified Chronicity: acute Pulmonary embolism type: unspecified Qualified Code(s): I26.99 - Other pulmonary embolism without acute cor pulmonale (7) Hyperlipidemia Hyperlipidemia type: unspecified Qualified Code(s): E78.5 - Hyperlipidemia, unspecified
[2023-08-18 07:00] LABS: Hematocrit (blood only) 47.6 % (42.0-52.0); Mean Corpuscular Hemoglobin 27.3 pg (25.0-34.0); Mean Corpuscular Hgb Conc 31.5 g/dL (32.0-36.0); Mean Corpuscular Volume 86.5 fL (80.0-100.0); Mean Platelet Volume 10.6 fL (9.4-12.4); Platelet Count 151 K/uL (130-400); RDW Coefficient of Variation 16.8 % (11.5-14.5); RDW Standard Deviation 52.8 fL (36.4-46.3); White Blood Count 9.27 K/ul (4.8-10.8)
[2023-08-18 07:35] LABS: Calcium 9.2 mg/dl (8.6-10.3); Potassium 4.6 mmol/L (3.5-5.1)
[2023-08-18 07:41] LABS: BUN Creatinine Ratio 21.6 (10-20); Creatinine Clr Calc Pharmacy 131.2 ml/min; Est GFR (Non-African American) 97.5 ml/min
[2023-08-18] MEDS ORDERED: diazePAM 5 MG TABLET PO PRN (11:12)
[2023-08-18] MEDS: MoRPHine SULFATE 4 MG/ML 1 ML CARP\\VIAL IV STA (11:39)
[2023-08-18] MEDS: MAGNESIUM SULFATE / D5W 1 GM/100 ML BAG IV SCH (13:22)
[2023-08-18] MEDS: DOCUSATE SODIUM 100 MG CAP PO PRN (13:55)
[2023-08-18] MEDS: POLYETHYLENE (MIRALAX) 17 GM PACK PO PRN (21:46)
[2023-08-18] MEDS: diazePAM 5 MG TABLET PO PRN (21:46)
[2023-08-19 06:48] LABS: Hematocrit (blood only) 41.5 % (42.0-52.0); Hemoglobin 13.7 g/dl (14.0-18.0); Mean Corpuscular Hemoglobin 28.1 pg (25.0-34.0); Mean Corpuscular Volume 85.2 fL (80.0-100.0); Mean Platelet Volume 10.4 fL (9.4-12.4); Platelet Count 155 K/uL (130-400); RDW Coefficient of Variation 16.5 % (11.5-14.5); RDW Standard Deviation 51.5 fL (36.4-46.3); Red Blood Count 4.87 M/uL (4.70-6.10); White Blood Count 10.08 K/ul (4.8-10.8)
--- NOTE | 2023-08-19 07:09 | Hospitalist Progress Note ---
Date of Service August 19, 2023 Assessment & Plan (1) Pulmonary embolism: Plan: CTA showed likely PE noted in the subsegmental arteries to the right lower lobe; comment made of possible embolized kyphoplasty cement material vs calcifications. Patient has had multiple back surgeries but none recently. He is HD stable. Adequate oxygenation on room air. No complaint of chest pain, pleuritic pain or shortness of breath. Low risk for mortality per PESI score. 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 Previously not on anticoagulation. - s/p heparin bolus and gtt - currently on eliquis 10 mg twice daily x 7 days (last day 08/22), then eliquis 5 mg twice daily for at least 3 months (2) Generalized weakness: Plan: -Awaiting dispo to SNF ([facility]), continue PT/OT while hospitalized (3) Back spasm: Plan: Positional. Likely provoked by laying flat for CT. Improved greatly after administration of IV Valium. Patient now at baseline. -Heat as needed -Tylenol PRN -Switched pain medicine from IV morphine (24 MME) to oral oxycodone 5 mg q8hr (30 MME) -Lidoderm patch -Continue Lyrica, baclofen -Continue diazepam 3x daily PRN (4) Panhypopituitarism: Plan: Patient with remote history of pituitary tumor s/p gamma knife excision. Follows with Endocrinology. He reports missing several doses of his medication today. Blood pressure mildly low in the ER. He was given Hydrocortisone 100mg IV x 1 dose -Home hydrocortisone increased to 10 mg 3 times daily, up from 5 mg -Continue Synthroid 250mcg po daily and Cytomel 5mcg po BID -Continue Prednisone 1mg po TID -Weekly testosterone -Consider endocrine consult if needed (5) Left upper extremity swelling: Plan: Patient with complaint of LUE and LLE edema. He was edematous upon admission which has significantly improved. Denies orthopnea, cough, SOB. Doppler of LLE is NEGATIVE for acute DVT. Reported history of lymphedema in the past secondary to lack of movement. He has had PT for it in the past -Continue to monitor (6) HTN (hypertension), benign: Plan: Chronic. BP at goal. -Continue home spironolactone, metoprolol (7) Hyperlipidemia: Plan: Chronic. Stable -Continue Atorvastatin (8) Chronic osteomyelitis of spine: Plan: Pt with hx of multiple spinal/back surgeries and subsequent infections. On chronic suppressive therapy. -Continue bactrim daily Admission and Anticipated Discharge Date Admission Date: August 13, 2023 Supervising Physician Co-Signing Physician Notes ATTESTATION I also saw the patient and confirmed wilson portions of the history and exam. I agree with the impression and plan in the resident documentation, and as summarized below. Patient without complaints. Loo EXAM 111/61, 54, 16, 36.4, 94% room air Respirations nonlabored Heart regular rate and rhythm DATA Labs Hemoglobin 13.7 BMP unremarkable except for sodium 134. IMPRESSION & PLAN Pulmonary embolism Continue Eliquis Generalized weakness Acute on chronic back pain Symptomatic management; transition to p.o. pain medications PT Pending placement Panhypopituitarism Continue supplementation Additional per resident documentation Subjective Pt is a 63 yo male with PMH of panhypopituitarism, s/p multiple back surgeries, and HTN presenting d/t weakness and extremity edema. Pt doing better this morning than yesterday during OT session. He is sore but understands that he cannot go to rehab with IV pain medicines so he is interested in switching to oral pain medicines. He was previously on hydromorphone and switched to oxycodone which didn't work as well- he thinks the dose was too low. Review of Systems Review of Systems: As per HPI Physical Exam Physical Exam: Constitutional: well appearing, no acute distress HEENT: normocephalic, no conjunctival injection CV: clinically well perfused Respiratory: no increased work of breathing MSK: no gross deformities noted Skin: warm and dry Neuro: alert, oriented, no FND noted Psych: mood and affect congruent Results & Data Results & Data Vital Signs (Past 12 Hours) Vital Signs Temp Pulse Pulse Resp BP Pulse Ox O2 Del Method 08/19/23 02:47 36.6 C 62 18 130/68 92 Room Air 08/19/23 01:00 56 L 08/18/23 23:37 36.3 C L 57 L 18 126/73 92 Room Air 08/18/23 20:00 36.7 C 60 18 151/75 H 92 Room Air 08/18/23 19:59 Room Air Resident Activity Tracking Resident Involvement: Resident Care Provided Care Provided: Adult Hospital Medicine (1) Pulmonary embolism Acute cor pulmonale presence: unspecified Chronicity: acute Pulmonary embolism type: unspecified Qualified Code(s): I26.99 - Other pulmonary embolism without acute cor pulmonale (7) Hyperlipidemia Hyperlipidemia type: unspecified Qualified Code(s): E78.5 - Hyperlipidemia, unspecified
[2023-08-19 07:20] LABS: BUN Creatinine Ratio 20.5 (10-20); Calcium 8.4 mg/dl (8.6-10.3); Creatinine Clr Calc Pharmacy 130.9 ml/min; Est GFR (African American) 113.6 ml/min; Potassium 4.5 mmol/L (3.5-5.1)
[2023-08-19] MEDS: oxyCODONE HCL IR 5 MG TAB (IMMEDIATE RELEASE) PO PRN (11:24)
--- NOTE | 2023-08-20 07:15 | Hospitalist Progress Note ---
Date of Service August 20, 2023 Assessment & Plan (1) Pulmonary embolism: Plan: CTA showed likely PE noted in the subsegmental arteries to the right lower lobe; comment made of possible embolized kyphoplasty cement material vs calcifications. Patient has had multiple back surgeries but none recently. He is HD stable. Adequate oxygenation on room air. No complaint of chest pain, pleuritic pain or shortness of breath. Low risk for mortality per PESI score. 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 Previously not on anticoagulation. - s/p heparin bolus and gtt - currently on eliquis 10 mg twice daily x 7 days (last day 08/22), then eliquis 5 mg twice daily for at least 3 months (2) Generalized weakness: Plan: -Awaiting dispo to SNF, continue PT/OT while hospitalized -Peer to peer completed with [facility] today- denied; plan for [facility] to take pt in the coming days (3) Back spasm: Plan: Positional. Likely provoked by laying flat for CT. Improved greatly after administration of IV Valium. Patient now at baseline. -Pt doing well with current regimen; continue oral oxycodone 5 mg q6hr (30 MME) -Heat as needed -Tylenol PRN -Lidoderm patch -Continue Lyrica, baclofen -Continue diazepam 3x daily PRN (4) Panhypopituitarism: Plan: Patient with remote history of pituitary tumor s/p gamma knife excision. Follows with Endocrinology. He reports missing several doses of his medication today. Blood pressure mildly low in the ER. He was given Hydrocortisone 100mg IV x 1 dose -Home hydrocortisone increased to 10 mg 3 times daily, up from 5 mg -Continue Synthroid 250mcg po daily and Cytomel 5mcg po BID -Continue Prednisone 1mg po TID -Weekly testosterone -Consider endocrine consult if needed (5) Left upper extremity swelling: Plan: Patient with complaint of LUE and LLE edema. He was edematous upon admission which has significantly improved. Denies orthopnea, cough, SOB. Doppler of LLE is NEGATIVE for acute DVT. Reported history of lymphedema in the past secondary to lack of movement. He has had PT for it in the past -Continue to monitor (6) HTN (hypertension), benign: Plan: Chronic. BP at goal. -Continue home spironolactone, metoprolol (7) Hyperlipidemia: Plan: Chronic. Stable -Continue Atorvastatin (8) Chronic osteomyelitis of spine: Plan: Pt with hx of multiple spinal/back surgeries and subsequent infections. On chronic suppressive therapy. -Continue bactrim daily Admission and Anticipated Discharge Date Admission Date: August 13, 2023 Supervising Physician Co-Signing Physician Notes ATTESTATION I also saw the patient and confirmed wilson portions of the history and exam. I agree with the impression and plan in the resident documentation, and as summarized below. Patient was recently told yesterday on oral medications, mother the patient notes they do not have physical therapy. The patient's insurance did not encompass but did approve SNF at [facility]. EXAM 119/55, 59, 16, 36.7, 91% room air Respirations nonlabored Heart regular rate and rhythm IMPRESSION & PLAN Pulmonary embolism Continue Eliquis Generalized weakness Acute on chronic back pain Symptomatic management; now on p.o. pain medications Continue PT Plan is for [facility] with transport tentatively scheduled for 1130 tomorrow Panhypopituitarism Continue supplementation Additional per resident documentation Subjective Pt is a 63 yo male with PMH of panhypopituitarism, s/p multiple back surgeries, and HTN presenting d/t weakness and extremity edema. Pt doing well with transition from IV morphine to PO oxycodone; however, he has not done any PT yet. Review of Systems Review of Systems: As per HPI Physical Exam Physical Exam: Constitutional: well appearing, no acute distress HEENT: normocephalic, no conjunctival injection CV: clinically well perfused Respiratory: no increased work of breathing MSK: no gross deformities noted Skin: warm, dry, no rashes Neuro: alert, oriented, no FND noted Psych: mood and affect congruent Results & Data Results & Data Vital Signs (Past 12 Hours) Vital Signs Temp Pulse Pulse Resp BP Pulse Ox O2 Del Method 08/20/23 02:59 36.4 C L 54 L 16 119/68 93 Room Air 08/19/23 23:59 36.6 C 54 L 16 146/79 H 93 Room Air 08/19/23 23:54 51 L 08/19/23 20:34 Room Air 08/19/23 19:52 36.5 C 56 L 20 145/69 H 93 Room Air Resident Activity Tracking Resident Involvement: Resident Care Provided Care Provided: Adult Hospital Medicine (1) Pulmonary embolism Acute cor pulmonale presence: unspecified Chronicity: acute Pulmonary embolism type: unspecified Qualified Code(s): I26.99 - Other pulmonary embolism without acute cor pulmonale (7) Hyperlipidemia Hyperlipidemia type: unspecified Qualified Code(s): E78.5 - Hyperlipidemia, unspecified
[2023-08-20] MEDS: oxyCODONE HCL IR 5 MG TAB (IMMEDIATE RELEASE) PO STA (15:12)
[2023-08-20] MEDS ORDERED: MAG SULFATE 50% 1GM/2ML VIAL IV STA (17:50)
[2023-08-20] MEDS: HYDROmorphone INJ 1 MG/ML SYRINGE IV STA (18:10)
[2023-08-20] MEDS ORDERED: NALOXONE HCL 0.4 MG/1 ML VIAL/CARP IV PRN (18:15)
[2023-08-20] MEDS: MAGNESIUM SULFATE / D5W 1 GM/100 ML BAG IV SCH (18:18)
[2023-08-20] MEDS: oxyCODONE HCL IR 5 MG TAB (IMMEDIATE RELEASE) PO PRN (19:20)
[2023-08-21 07:36] VITALS: O2SAT 92
[2023-08-21 10:46] VITALS: RESP 18; TEMP 97.5
[2023-08-21] MEDS: APIXABAN 5 MG TABLET PO SCH (10:51)
[2023-08-21 11:02] VITALS: BP 135/61; PULSE 86
--- NOTE | 2023-08-21 14:08 | Discharge Summary ---
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 He noted the swelling started 2 days ago and has been progressive. He reports decreased strength as well as imbalance and generalized weakness. Patient called his PCP and was instructed to come to the ER. He denies fever, chills, cough, CP or shortness of breath. He denies abdominal pain, nausea, vomiting or diarrhea. Denies weight gain or orthopnea. Patient has missed several doses of his medications today. He was taken to CT and developed severe back pain and muscle spasm from laying on the table. Patient in significant pain during my encounter. He also voiced concern that he was feeling off because of missing his steroid dosing. No additional complaints at this time ER Course: Oxycodone 5mg PO Morphine 4mg IV Valium 5mg IV Hydrocortisone 100mg IV Heparin bolus and gtt Lidoderm patch Morphine 4mg IV Admission Exam Per Admitting Provider General: patient in severe pain due to back spasm, answering questions and following commands HEENT: NC/AT, PERRL, EOMI, anicteric sclera, conjunctiva without injection, external ear normal to inspection and nontender, nares patent, moist mucus membranes, dentition intact, no oropharyngeal lesions, neck supple, trachea midline, no LAD, no thyromegaly, no JVD Heart: +S1/S2, regular, no m/r/g Lungs: equal air entry bilaterally, no rales/rhonchi/wheezes Abd: +BS, soft, NT/ND, no masses/organomegaly/ascites Ext: edema in bilateral LE and UE, slightly worse noted in LLE Neuro: nonfocal, patient AA&O x 4, speech intact, no facial droop, moving all extremities on command with equal strength 5/5 Principal Diagnosis Pulmonary embolism; generalized weakness Discharge Exam General: Resting comfortably in bed in no acute distress HEENT: PERRLA. Normal conjunctiva, anicteric sclera. Oropharynx normal. Respiratory: Normal respiratory effort, CTABL. Cardiovascular: RRR without murmurs, gallops, or rubs. No pedal edema. GI: Large, protuberant abdomen. Nontender x4 quadrants to palpation. Neuro: Alert and oriented x3. Discharge Data Allergies Allergy/AdvReac Type Severity Reaction Status Date / Time iron dextran complex Allergy Severe HIVES Verified 06/25/23 15:28 cyclobenzaprine Allergy Intermediate N/V Verified 06/25/23 15:28 Consultations 08/13/23 21:52 ED Decision to Admit Stat Ordered Studies 08/13/23 19:29 CT angio head w con Stat CT angio neck with con Stat CT head/brain wo con Stat 08/13/23 19:31 CT angio chest PE protocol Stat 08/13/23 21:34 US venous doppler LE BI Stat US venous doppler UE LT Stat Hospital Course (1) Pulmonary embolism: CTA showed likely PE noted in the subsegmental arteries to the right lower lobe; comment made of possible embolized kyphoplasty cement material vs calcifications. Patient has had multiple back surgeries but none recently. He is HD stable. Adequate oxygenation on room air. No complaint of chest pain, pleuritic pain or shortness of breath. Low risk for mortality per PESI score. 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 Previously not on anticoagulation. - s/p heparin bolus and gtt - currently on Eliquis 10 mg twice daily x 7 days (last day 08/20), then Eliquis 5 mg twice daily for at least 3 months (2) Generalized weakness: -Awaiting dispo to SNF, continue PT/OT while hospitalized -Peer to peer completed with [facility] today- denied; plan to d/c to [facility]. (3) Back spasm: Positional. Likely provoked by laying flat for CT. Improved greatly after administration of IV Valium. Patient now at baseline. -Pt doing well with current regimen; continue oral oxycodone 5 mg q6hr (30 MME) -Heat as needed -Tylenol PRN -Lidoderm patch -Continue Lyrica. Stopped baclofen. -Increased oxycodone to 10 mg every 6 hours as needed, from 5 mg. -Continue diazepam 3x daily PRN (4) Panhypopituitarism: Patient with remote history of pituitary tumor s/p gamma knife excision. Follows with Endocrinology. He reports missing several doses of his medication today. Blood pressure mildly low in the ER. He was given Hydrocortisone 100mg IV x 1 dose -Home hydrocortisone increased to 10 mg 3 times daily, up from 5 mg -Continue Synthroid 250mcg po daily and Cytomel 5mcg po BID -Continue Prednisone 1mg po TID -Weekly testosterone -Consider endocrine consult (5) Left upper extremity swelling: Patient with complaint of LUE and LLE edema. He was edematous upon admission which has significantly improved. Denies orthopnea, cough, SOB. Doppler of LLE is NEGATIVE for acute DVT. Reported history of lymphedema in the past secondary to lack of movement. He has had PT for it in the past -Continue to monitor (6) HTN (hypertension), benign: Chronic. BP at goal. -Continue home spironolactone, metoprolol (7) Hyperlipidemia: Chronic. Stable -Continue Atorvastatin (8) Chronic osteomyelitis of spine: Pt with hx of multiple spinal/back surgeries and subsequent infections. On chronic suppressive therapy. -Continue bactrim daily Total Time Total Time Spent Total Time Spent (In Minutes): 35 Discharge Plan Discharge Items Patient Disposition: Transfer Detention Fac Reason For Visit: PE, EDEMA Discharge Diagnosis: Pulmonary edema. Ambulatory dysfunction Activity: Per Instructions section Non-emergency contact: Primary Care Provider Call non-emergency contact if: you have any medication questions Follow-up/Referrals: David Jacob DO [Primary Care Provider] - Diet: Regular Addtl Attending Provider Instructions: Deashannan Aragon, You were brought to the hospital because of difficulty breathing and swelling in your lower extremities. You were admitted to the hospital after it was discovered that you had a pulmonary embolism, or a blood clot in the lungs. You received immediate treatment with IV blood thinners, which was then transition to oral blood thinners as your condition improved. You also had back spasms, which we treated with a variety of medications. We also had physical therapy evaluate and work with you during your stay. They recommended that you should be discharged to a short-term rehab facility. Now that you have been accepted at a facility. We believe that your not ready to be safely discharged home. 1. We started you on a medication called apixaban, or Eliquis. Please take apixaban 10 mg twice daily until August 19. Then take apixaban 5 mg twice a day for 3 more months, or until November 12, 2023. 2. We increased your hydrocortisone to 10 mg 3x daily, from 5 mg 3x daily. Continue to take hydrocortisone 10 mg 3x daily, unless otherwise instructed to by your primary care physician (PCP). 3. We increased your oxycodone to 10 mg every 6 hours as needed, from 5 mg. Continue taking your oxycodone as needed. However, we recommend that you take it before working with physical therapy. 3. We recommend that you start taking [id number] (OTC) magnesium oxide supplements on discharge. Take magnesium oxide 400 mg 1-2 times a day. If you experience diarrhea after starting it, you may stop taking it. 4. We made no other changes to your medications. Please continue to take those medications as previously instructed unless otherwise instructed by your primary care physician. 5. It is important that you follow-up with your PCP within 2 weeks of your discharge date. An appointment should be made for you by our hospital applications systems analyst. However, if you have not been contacted about an appointment after 2-3 business days, you may call Dr. Jacob's office at [phone]. If you are unable to contact Dr. Jacob's office, you may contact our hospital applications systems analyst at [phone]. Our hospital applications systems analyst will then make a follow-up appointment for you to be seen by one of our outpatient providers. 6. At your follow-up appointment with Dr. Jaocb, it is important that you discuss increasing the number of your weekly home health visits for physical therapy. This will be communicated directly to your PCP via the discharge summary. However, you should also make sure that this is discussed at your visit. It has been a pleasure to care for you here at [facility]. If you have any questions or concerns about your care, please reach out to us at [phone]. Pending Studies at Discharge: No Stand-Alone Forms: My [facility] Skilled Items Patient informed of condition?: Yes DNR: No Discharge Level of Care: Acute rehab Communicable Disease: No Discharge Prognosis: Improving Lines: None Urinary Catheter: No Medications and DC Order Prescriptions: New Eliquis 5 mg Tablet 5 mg PO BID 83 Days Qty: 166 0RF Continued liothyronine 5 mcg tablet 5 mcg PO BID Qty: 90 0RF spironolactone [Aldactone] 25 mg tablet 25 mg PO BID Qty: 180 3RF metformin 500 mg tablet extended release 24 hr 500 mg PO BID Qty: 180 3RF (DME) Wheeled Walker Misc See Rx Instructions .Route Qty: 1 0RF Rx Instructions: As directed with seat testosterone cypionate 200 mg/mL oil 150 mg IM Q7D 90 Days Qty: 9.75 3RF Rx Instructions: last filled 06/19/22 levothyroxine 50 mcg tablet 50 mcg PO DAILY Qty: 90 3RF (DME) BD Integra Syringe 3 mL 25 gauge x 1" syringe See Rx Instructions .Route Qty: 100 0RF Rx Instructions: inject teterone every 7 days pregabalin 150 mg capsule 150 mg PO QID 30 Days Qty: 120 1RF baclofen 20 mg tablet 20 mg PO TID Qty: 90 3RF sulfamethoxazole-trimethoprim [Bactrim] 400-80 mg tablet 1 tab PO DAILY Qty: 90 3RF levothyroxine 200 mcg tablet 200 mcg PO QAM Qty: 90 3RF Rx Instructions: total dose 250 lansoprazole 30 mg capsule,delayed release(DR/EC) 30 mg PO QAM Qty: 90 3RF metoprolol tartrate 50 mg tablet 50 mg PO TID Qty: 270 1RF dexamethasone sodium phosphate 4 mg/mL solution 4 mg PO ONCE PRN (Reason: emergency med) Rx Instructions: take one 4 mg for emergency mecobalamin (vitamin B12) 1,000 mcg tablet,chewable 5,000 mcg PO DAILY sertraline 100 mg tablet 100 mg PO TID Qty: 180 2RF atorvastatin 20 mg tablet 20 mg PO HS Qty: 90 3RF prednisone 1 mg tablet 1 mg PO TID 90 Days Qty: 270 3RF trazodone 100 mg tablet 100 mg PO HS Qty: 90 3RF aspirin 81 mg Tablet,Delayed Release (Dr/Ec) 81 mg PO HS Changed hydrocortisone 5 mg tablet 10 mg PO TID 90 Days Qty: 270 0RF oxycodone 5 mg tablet 10 mg PO Q6 PRN (Reason: pain) Qty: 120 0RF Discharge Orders: Discharge Order (Routine); Ordered 08/21/23 Ordered By: Minor Ortez/Other Patient Handouts: Managing Type 2 Diabetes Admission Data Admit Date/Time: 08/13/23 22:18 Attending Provider: Huma Crandall Admit Provider: Guadalupe Dodson Primary Care Provider: David Jacob Other Providers: Guadalupe Dodson; [facility]; [facility] Other Interventions: Discharge Summary Assessment (RN) Last Done: 08/21/23 11:02 Supervising Physician Co-Signing Physician Notes I personally examined the patient and verified wilson points of history and exam, discussed case, and agree with decision making and plan documented by Dr. Corrales. Patient denies any changes to respiratory function, states that he was not aware of pulmonary embolisms until diagnosed, is tolerating Eliquis well without signs of bleeding. Will be discharged to [facility] for physical therapy, patient struggles with chronic back pain which has been worsened by prolonged bedrest, is maintained on p.o. oxycodone. Resident Activity Tracking Resident Involvement: Resident Care Provided Care Provided: Adult Hospital Medicine
== END 2023-08-21 12:13 | DRG 176 ==
LOC: ED 17:06 → SUATTDRO 22:18 → EDINP 22:18 → 2E 08-14 04:15 → 2N 08-14 20:16
DX: Z79.82 Long term (current) use of aspirin; Z66 Do not resuscitate; R60.0 Localized edema; Z92.3 Personal history of irradiation; Z68.42 Body mass index [BMI] 45.0-49.9, adult; M48.061 Spinal stenosis, lumbar region without neurogenic claudication; Z98.1 Arthrodesis status; E23.0 Hypopituitarism; R53.1 Weakness; Z79.84 Long term (current) use of oral hypoglycemic drugs; I10 Essential (primary) hypertension; I26.93 Single subsegmental thrombotic pulmonary embolism without acute cor pulmonale; E78.5 Hyperlipidemia, unspecified; E66.01 Morbid (severe) obesity due to excess calories

== ENCOUNTER 2023-10-22 16:25 | Inpatient (IN) ==
--- NOTE | 2023-10-22 17:09 | Emergency Department Note ---
Impression & Plan Generalized weakness ED Provider Note HISTORY OF PRESENT ILLNESS: Patient is a 63-year-old male presenting for generalized weakness. Patient reports that 6 weeks ago he was diagnosed with pulmonary embolism and started on Eliquis. He states that he then went to rehab and was just discharged from rehab about 2 weeks ago. He states that over the last week and a half he has been having significant diffuse weakness. He states that he has difficulty getting around his house and going up any stairs he has at his home. He denies any focal numbness, tingling or weakness. Reports he just feels like he has no energy. He has not missed any doses of his Eliquis. Denies any chest pain or shortness of breath. Denies recent falls or head injury. Denies any nausea or vomiting. No recent fevers. His had expressed to EMS that the patient may be having auditory hallucinations. ROS: as above PHYSICAL EXAM: Constitutional: Patient appears in no acute distress. HENT: Head: Normocephalic and atraumatic. Eyes: EOMI, PERRL Mouth/Throat: Mucous membranes moist. Neck: Trachea midline. Neck supple. Cardiovascular: RRR, No murmurs, rubs or gallops. Intact distal pulses. Pulmonary/Chest: No respiratory distress. Breath sounds clear and equal bilaterally. No wheezes or rales. Abdominal: Abdomen soft, no tenderness, rebound or guarding. Musculoskeletal: Lymphedema of the bilateral lower extremities Skin: Warm and dry. No rash, erythema, pallor or cyanosis Psychiatric: Appropriate mood and affect for situation. Neurological: Alert and keenly responsive. CN II-XII grossly intact, moving all extremities equally and fully. MDM: - Vitals signs showed hypertension - History obtained via patient. History as above. - Chronic conditions affecting care: PE; depression; panhypopituitarism; HLD; HTN - Differential diagnoses include, but are not limited to: UTI; pneumonia; ACS; intracranial hemorrhage; CVA - Order placed for continuous cardiac monitoring. At this time, monitor showed rate of 73 bpm with normal sinus rhythm, per my interpretation. - External medical records reviewed. Primary care visit note dated 09/21/2023 was reviewed. Patient followed in their clinic after his recent discharge from the hospital. He is having physical therapy for his generalized weakness and it is documented that it is improving slowly - EKG interpreted by myself showed normal sinus rhythm. Rate 69 bpm. QT 428. No acute ischemic changes. - Laboratory workup interpreted by myself showed normal WBC; slight hyponatremia (Na 131); normal troponin; normal lactate; hyperglycemia (glucose 286); low TSH but normal T4 - CXR negative for pneumonia, per my interpretation - Viral respiratory panel negative - UA negative for infection - CT head wo contrast negative for acute intracranial pathology - Discussed results with the patient. They expressed concern about his ability to get around at home given his weakness. - Discussion was had with case repairer about patient's case and need for admission - Hospitalist consulted for admission - [facility] 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 Hyperparathyroidism due to vitamin D deficiency Diabetes mellitus type 2 in obese HTN (hypertension), benign Hyperlipidemia Chronic pain disorder Lumbar myelopathy Lumbar spinal stenosis Generalized polyneuropathy Constipation due to opioid therapy Complex sleep apnea syndrome Nocturnal hypoxemia Osteoporosis Urinary incontinence GERD (gastroesophageal reflux disease) Impaired functional mobility and activity tolerance Lymphedema Restless leg syndrome Chronic venous insufficiency of lower extremity Medical History 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 Osteoporosis Vitamin B12 deficiency Vitamin D deficiency History of recurrent deep vein thrombosis Fusion of spine, thoracolumbar region Nocturnal enuresis Micronutrients deficiency Deep vein thrombosis History of anesthesia problem Hyperlipidemia Hypertension History of COVID-19 Sleep apnea Osteomyelitis Spinal stenosis Lymphedema Osteoporosis Status post gamma knife treatment Odell's disease Back pain Pituitary tumor Surgical History Hx of tonsillectomy Hx of colonoscopy History of lumbar fusion History of cholecystectomy Family History Sister Breast cancer Multiple sclerosis Father Colorectal cancer Myocardial infarction Brother Myocardial infarction Prostate cancer Pancreatitis Denies family history of Ovarian cancer Social History Smoking Status: Never smoker Second Hand Exposure: Yes (as a child-father smoked); Do You Dip or Chew Tobacco: No; Hx Alcohol Use: Yes Alcohol type: wine Hx Substance Use: No Preferred Language: Kazakh Communication Ability: Effective Visual Impairment: No Limitations Hearing Ability: Normal Creative Guru Required: No Beliefs That Will Affect Care: None marital status: Current Living Situation: Spouse current occupational status: other current occupation: Disabled How many Children do You have: 1 Feels Safe at Home: Yes Childhood Exposure to Second-Hand Smoke: Yes Diet: regular caffeine: Yes during the past year weight has: decreased > 10 lbs Dental Care, Regularly: No Physical Activity Frequency: Does not Exercise Seatbelt Use: always Sunscreen Use: Yes Assistive Devices: Walker Allergies Allergies Allergy/AdvReac Type Severity Reaction Status Date / Time iron dextran complex Allergy Severe HIVES Verified 10/22/23 19:31 cyclobenzaprine Allergy Intermediate N/V Verified 10/22/23 19:31 Home Meds Home Medications Medication Instructions Recorded Confirmed aspirin 81 mg tablet,delayed 81 mg PO HS 06/17/18 10/22/23 release dexamethasone sodium phosphate 4 4 mg PO ONCE PRN emergency med 06/25/23 10/22/23 mg/mL injection solution mecobalamin (vitamin B12) 1,000 5,000 mcg PO QPM 06/25/23 10/22/23 mcg chewable tablet docusate sodium 100 mg capsule 100 mg PO BID PRN constipation 09/15/23 10/22/23 polyethylene glycol 3350 17 17 g PO DAILY PRN constipation 09/15/23 10/22/23 gram/dose oral powder sennosides 8.6 mg capsule (senna) 17.2 mg PO DAILY PRN constipation 09/15/23 10/22/23 levothyroxine 200 mcg tablet 200 mcg PO DAILYBB 10/22/23 10/22/23 levothyroxine 50 mcg tablet 50 mcg PO DAILYBB 10/22/23 10/22/23 prednisone 1 mg tablet 2 mg PO TID 10/22/23 10/22/23 sulfamethoxazole 400 1 tab PO DAILY 10/22/23 10/22/23 mg-trimethoprim 80 mg tablet Previous Rx's Medication Instructions Recorded spironolactone 25 mg tablet 25 mg PO BID #180 tabs 11/11/22 (Aldactone) sertraline 100 mg tablet 100 mg PO TID #180 tabs 02/04/23 atorvastatin 20 mg tablet 20 mg PO HS #90 tabs 02/05/23 metformin 500 mg tablet,extended 500 mg PO BID #180 tabs 02/18/23 release 24 hr Wheeled Walker #1 ea 03/24/23 testosterone cypionate 200 mg/mL 150 mg (0.75 mL) IM Q7D 90 days 04/17/23 intramuscular oil #9.75 mL syringe with needle, safety 3 mL #100 ea 05/12/23 25 gauge x 1" (BD Integra Syringe) lansoprazole 30 mg capsule,delayed 30 mg PO QAM #90 caps 08/10/23 release metoprolol tartrate 50 mg tablet 50 mg PO TID #270 tabs 08/10/23 hydrocortisone 5 mg tablet 10 mg (2 x 5 mg) PO TID 90 days 08/18/23 #270 tabs baclofen 20 mg tablet 20 mg PO QID #90 tabs 09/15/23 liothyronine 5 mcg tablet 5 mcg PO DAILY #90 tabs 09/15/23 oxycodone 5 mg tablet 10 mg (2 x 5 mg) PO Q6H PRN pain 10/02/23 #120 tabs pregabalin 150 mg capsule 150 mg PO QID 30 days #120 caps 10/02/23 apixaban 5 mg tablet (Eliquis) 5 mg PO BID 90 days #180 tabs 10/14/23 mirtazapine 15 mg tablet 15 mg PO HS #90 tabs 10/14/23 Results & Data (ED) Vital Signs Vital Signs - 24 hr 10/22/23 16:31 10/22/23 16:54 Temperature 36.9 C Temperature Source Oral Pulse Rate 72 73 Respiratory Rate 14 Blood Pressure 147/77 H Blood Pressure Mean 100 Pulse Oximetry 95 Oxygen Delivery Method Room Air Sepsis Recent Fever Within 48 Hours No Sepsis New/Unexplained Change in Mental Status No Sepsis Action Taken by Nursing No Action Required Laboratory Data 10/22/23 16:45 05/23/24 16:45 Lab Results 10/22/23 10/22/23 10/22/23 Range/Units 16:45 17:20 17:41 WBC 10.42 (4.8-10.8) K/ul RBC 5.44 (4.70-6.10) M/uL Hgb 14.2 (14.0-18.0) g/dl Hct 43.8 (42.0-52.0) % MCV 80.5 (80.0-100.0) fL MCH 26.1 (25.0-34.0) pg MCHC 32.4 (32.0-36.0) g/dL RDW Std Deviation 48.5 H (36.4-46.3) fL RDW Coeff of Tristan 16.7 H (11.5-14.5) % Plt Count 152 (130-400) K/uL MPV 11.1 (9.4-12.4) fL Immature Gran % (Auto) 0.9 % Neut % (Auto) 76.8 % Lymph % (Auto) 13.9 % [place] % (Auto) 5.8 % Eos % (Auto) 2.3 % Baso % (Auto) 0.3 % Neut # (Auto) 8.01 H (1.40-6.50) K/uL Lymph # (Auto) 1.45 (1.20-3.40) K/uL [place] # (Auto) 0.60 H (0.11-0.59) K/uL Eos # (Auto) 0.24 (0.00-0.50) K/uL Baso # (Auto) 0.03 (0.00-0.20) K/uL Immature Gran # (Auto) 0.09 (0.01-0.20) K/uL PT 11.3 (9.0-12.0) Seconds INR 1.0 (0.9-1.1) Sodium 131 L (136-145) mmol/L Potassium 4.1 (3.5-5.1) mmol/L Chloride 99 (98-107) mmol/L Carbon Dioxide 26 (21-32) mmol/L Anion Gap 6 (3-11) BUN 8 (6-23) mg/dl Creatinine 0.59 L (0.6-1.4) mg/dl Est Cr Clr Drug Dosing 166.8 ml/min Est GFR ( Amer) 124.0 ml/min Est GFR (Non-Af Amer) 107.0 ml/min BUN/Creatinine Ratio 13.6 (10-20) Glucose 286 H (70-99(Fasting)) mg/dl Lactate (0.4-2.0) mmol/L Calcium 8.8 (8.6-10.3) mg/dl Magnesium 1.9 (1.7-2.4) mg/dl Total Bilirubin 0.5 (0.2-1.0) mg/dl AST 29 (13-39) U/L ALT 38 (7-52) U/L Alkaline Phosphatase 107 H (34-104) U/L Troponin I High Sens 7.6 (0-20) pg/ml Total Protein 6.5 (6.0-8.3) gm/dl Albumin 3.5 (3.4-5.0) gm/dl Globulin 3.0 (2.5-4.0) gm/dl Albumin/Globulin Ratio 1.2 (0.9-2) TSH < 0.010 L (0.300-4.500) uIu/ml Free T4 1.17 (0.61-1.60) ng/dl Urine Color Yellow Urine Appearance Clear (Clear) Urine pH 6.5 (4.5-7.5) Ur Specific [place] 1.009 (1.000-1.030) Urine Protein Negative (Negative) Urine Glucose (UA) Trace H (Negative) Urine Ketones Negative (Negative) Urine Blood Negative (Negative) Urine Nitrite Negative (Negative) Urine Bilirubin Negative (Negative) Urine Urobilinogen Negative (Negative) Ur Leukocyte Esterase Negative (Negative) Adenovirus (PCR) Not Detected (NotDetected) B. pertussis DNA (PCR) Not Detected (NotDetected) B.parapertussis DNA PCR Not Detected (NotDetected) C. pneumoniae DNA (PCR) Not Detected (NotDetected) Coronavirus OC43 (PCR) Not Detected (NotDetected) Coronavirus HKU1 (PCR) Not Detected (NotDetected) Coronavirus 229E (PCR) Not Detected (NotDetected) SARS-CoV-2 (PCR) Not Detected (NotDetected) Coronavirus NL63 (PCR) Not Detected (NotDetected) Human Metapneumovir PCR Not Detected (NotDetected) Influenza Type A (PCR) Not Detected (NotDetected) Influenza Type B (PCR) Not Detected (NotDetected) M. pneumoniae (PCR) Not Detected (NotDetected) Parainfluenza 1 (PCR) Not Detected (NotDetected) Parainfluenza 2 (PCR) Not Detected (NotDetected) Parainfluenza 3 (PCR) Not Detected (NotDetected) Parainfluenza 4 (PCR) Not Detected (NotDetected) RSV (PCR) Not Detected (NotDetected) Entero/Rhino (PCR) Not Detected (NotDetected) 10/22/23 Range/Units 19:17 WBC (4.8-10.8) K/ul RBC (4.70-6.10) M/uL Hgb (14.0-18.0) g/dl Hct (42.0-52.0) % MCV (80.0-100.0) fL MCH (25.0-34.0) pg MCHC (32.0-36.0) g/dL RDW Std Deviation (36.4-46.3) fL RDW Coeff of Tristan (11.5-14.5) % Plt Count (130-400) K/uL MPV (9.4-12.4) fL Immature Gran % (Auto) % Neut % (Auto) % Lymph % (Auto) % [place] % (Auto) % Eos % (Auto) % Baso % (Auto) % Neut # (Auto) (1.40-6.50) K/uL Lymph # (Auto) (1.20-3.40) K/uL [place] # (Auto) (0.11-0.59) K/uL Eos # (Auto) (0.00-0.50) K/uL Baso # (Auto) (0.00-0.20) K/uL Immature Gran # (Auto) (0.01-0.20) K/uL PT (9.0-12.0) Seconds INR (0.9-1.1) Sodium (136-145) mmol/L Potassium (3.5-5.1) mmol/L Chloride (98-107) mmol/L Carbon Dioxide (21-32) mmol/L Anion Gap (3-11) BUN (6-23) mg/dl Creatinine (0.6-1.4) mg/dl Est Cr Clr Drug Dosing ml/min Est GFR ( Amer) ml/min Est GFR (Non-Af Amer) ml/min BUN/Creatinine Ratio (10-20) Glucose (70-99(Fasting)) mg/dl Lactate 2.0 (0.4-2.0) mmol/L Calcium (8.6-10.3) mg/dl Magnesium (1.7-2.4) mg/dl Total Bilirubin (0.2-1.0) mg/dl AST (13-39) U/L ALT (7-52) U/L Alkaline Phosphatase (34-104) U/L Troponin I High Sens (0-20) pg/ml Total Protein (6.0-8.3) gm/dl Albumin (3.4-5.0) gm/dl Globulin (2.5-4.0) gm/dl Albumin/Globulin Ratio (0.9-2) TSH (0.300-4.500) uIu/ml Free T4 (0.61-1.60) ng/dl Urine Color Urine Appearance (Clear) Urine pH (4.5-7.5) Ur Specific [place] (1.000-1.030) Urine Protein (Negative) Urine Glucose (UA) (Negative) Urine Ketones (Negative) Urine Blood (Negative) Urine Nitrite (Negative) Urine Bilirubin (Negative) Urine Urobilinogen (Negative) Ur Leukocyte Esterase (Negative) Adenovirus (PCR) (NotDetected) B. pertussis DNA (PCR) (NotDetected) B.parapertussis DNA PCR (NotDetected) C. pneumoniae DNA (PCR) (NotDetected) Coronavirus OC43 (PCR) (NotDetected) Coronavirus HKU1 (PCR) (NotDetected) Coronavirus 229E (PCR) (NotDetected) SARS-CoV-2 (PCR) (NotDetected) Coronavirus NL63 (PCR) (NotDetected) Human Metapneumovir PCR (NotDetected) Influenza Type A (PCR) (NotDetected) Influenza Type B (PCR) (NotDetected) M. pneumoniae (PCR) (NotDetected) Parainfluenza 1 (PCR) (NotDetected) Parainfluenza 2 (PCR) (NotDetected) Parainfluenza 3 (PCR) (NotDetected) Parainfluenza 4 (PCR) (NotDetected) RSV (PCR) (NotDetected) Entero/Rhino (PCR) (NotDetected) Imaging Data Radiologist's Impression: Chest X-Ray 10/22/23 17:04 SINGLE VIEW CHEST CLINICAL HISTORY: Generalized weakness. FINDINGS: An AP, portable, upright chest radiograph is compared to chest x-ray and chest CT dated 08/13/2023. The cardiomediastinal silhouette is unremarkable. There is chronic elevation right hemidiaphragm noting bibasilar scarring/atelectasis. No airspace consolidation or large pleural effusion is identified. No pneumothorax is seen. The skeletal structures are osteopenic. There are chronic/healed left-sided rib fractures. Postsurgical change is noted in the spine with thoracolumbar spinal rods in place. IMPRESSION: No active disease in the chest. ACT 112: Negative or not required by law. Electronically signed by: Efrain Davis M.D. 10/22/2023 5:[address] 10/22/23 18:13 Exam(s): CT HEAD Without Contrast EXAM: CT Head Without Intravenous Contrast CLINICAL HISTORY: Reason for exam: weakness. TECHNIQUE: Axial computed tomography images of the head/brain without intravenous contrast. CTDI is elderly brain 78.05 mGy and DLP is 1404.92 mGy-cm. Automated exposure control was utilized for the study. A dose lowering technique was utilized adhering to the principles of ALARA. COMPARISON: No relevant prior studies available. FINDINGS: Brain: Parenchymal volume appears normal for age. Rogers-white matter differentiation maintained. No hemorrhage, mass-effect, or edema. Ventricles: Unremarkable. No hydrocephalus. Bones/joints: Unremarkable. No acute fracture. Soft tissues: Unremarkable. Sinuses: Unremarkable as visualized. Mastoid air cells: Unremarkable as visualized. No mastoid effusion. IMPRESSION: No acute intracranial process. Electronically signed by: Lito Brown M.D. 10/22/23 19:37 PM Discharge Plan Visit Data Chief Complaint: Weakness Stated Complaint: WEAKNESS ED Provider: Nati Villa Discharge Problem: Generalized weakness Forms Stand Alone Forms: My [facility] Prescriptions Prescriptions: No Action spironolactone [Aldactone] 25 mg tablet 25 mg PO BID Qty: 180 3RF metformin 500 mg tablet extended release 24 hr 500 mg PO BID Qty: 180 3RF (DME) Wheeled Walker Misc See Rx Instructions .Route Qty: 1 0RF Rx Instructions: As directed with seat testosterone cypionate 200 mg/mL oil 150 mg IM Q7D 90 Days Qty: 9.75 3RF Rx Instructions: saturdays (DME) BD Integra Syringe 3 mL 25 gauge x 1" syringe See Rx Instructions .Route Qty: 100 0RF Rx Instructions: inject teterone every 7 days lansoprazole 30 mg capsule,delayed release(DR/EC) 30 mg PO QAM Qty: 90 3RF metoprolol tartrate 50 mg tablet 50 mg PO TID Qty: 270 1RF docusate sodium 100 mg capsule 100 mg PO BID PRN (Reason: constipation) Patient Comments: CONFIRMED W/ PT AND ON [facility] DC MEDLIST 09/15/23. (PT ONLY TAKE PRN) polyethylene glycol 3350 17 gram/dose powder 17 g PO DAILY PRN (Reason: constipation) Patient Comments: CONFIRMED W/ PT AND ON JUNIP[facility] DC MEDLIST 09/15/23. senna 8.6 mg capsule 17.2 mg PO DAILY PRN (Reason: constipation) Patient Comments: CONFIRMED W/ PT AND ON JUNIP[facility] DC MEDLIST 09/15/23.PT ONLY TAKES PRN oxycodone 5 mg tablet 10 mg PO Q6H PRN (Reason: pain) Qty: 120 0RF pregabalin 150 mg capsule 150 mg PO QID 30 Days Qty: 120 1RF Eliquis 5 mg tablet 5 mg PO BID 90 Days Qty: 180 3RF mirtazapine 15 mg tablet 15 mg PO HS Qty: 90 3RF dexamethasone sodium phosphate 4 mg/mL solution 4 mg PO ONCE PRN (Reason: emergency med) Rx Instructions: take one 4 mg for emergency mecobalamin (vitamin B12) 1,000 mcg tablet,chewable 5,000 mcg PO QPM sertraline 100 mg tablet 100 mg PO TID Qty: 180 2RF atorvastatin 20 mg tablet 20 mg PO HS Qty: 90 3RF aspirin 81 mg Tablet,Delayed Release (Dr/Ec) 81 mg PO HS hydrocortisone 5 mg tablet 10 mg PO TID 90 Days Qty: 270 0RF sulfamethoxazole-trimethoprim 400-80 mg tablet 1 tab PO DAILY levothyroxine 50 mcg tablet 50 mcg PO DAILYBB levothyroxine 200 mcg tablet 200 mcg PO DAILYBB Rx Instructions: total dose 250 prednisone 1 mg tablet 2 mg PO TID Rx Instructions: pt states just increased dose from 1 mg to 1 mg to start 10/23/23 liothyronine 5 mcg tablet 5 mcg PO QPM baclofen 20 mg tablet 20 mg PO TID Referrals Referrals: David Jacob DO [Primary Care Provider] -
[2023-10-22 17:18] LABS: Basophils # (auto) 0.03 K/uL (0.00-0.20); Basophils % (auto) 0.3 %; Eosinophils # (auto) 0.24 K/uL (0.00-0.50); Eosinophils % (auto) 2.3 %; Hematocrit (blood only) 43.8 % (42.0-52.0); Hemoglobin 14.2 g/dl (14.0-18.0); Immature Granulocytes # (auto) 0.09 K/uL (0.01-0.20); Immature Granulocytes % (auto) 0.9 %; Lymphocytes # (auto) 1.45 K/uL (1.20-3.40); Lymphocytes % (auto) 13.9 %; Mean Corpuscular Hemoglobin 26.1 pg (25.0-34.0); Mean Corpuscular Hgb Conc 32.4 g/dL (32.0-36.0); Mean Corpuscular Volume 80.5 fL (80.0-100.0); Mean Platelet Volume 11.1 fL (9.4-12.4); Monocytes % (auto) 5.8 %; Neutrophils # (auto) 8.01 K/uL (1.40-6.50); Neutrophils % (auto) 76.8 %; Platelet Count 152 K/uL (130-400); RDW Coefficient of Variation 16.7 % (11.5-14.5); RDW Standard Deviation 48.5 fL (36.4-46.3); Red Blood Count 5.44 M/uL (4.70-6.10); White Blood Count 10.42 K/ul (4.8-10.8)
[2023-10-22 17:34] LABS: Alanine Aminotransferase 38 U/L (7-52); Albumin Globulin Ratio 1.2 (0.9-2); Albumin Level 3.5 gm/dl (3.4-5.0); Alkaline Phosphatase 107 U/L (34-104); Anion Gap 6 (3-11); Aspartate Aminotransferase 29 U/L (13-39); BUN Creatinine Ratio 13.6 (10-20); Bilirubin,Total 0.5 mg/dl (0.2-1.0); Blood Urea Nitrogen 8 mg/dl (6-23); Calcium 8.8 mg/dl (8.6-10.3); Carbon Dioxide 26 mmol/L (21-32); Chloride 99 mmol/L (98-107); Creatinine Clr Calc Pharmacy 166.8 ml/min; Glucose 286 mg/dl (70-99(Fasting)); Magnesium 1.9 mg/dl (1.7-2.4); Potassium 4.1 mmol/L (3.5-5.1); Sodium 131 mmol/L (136-145); Total Protein 6.5 gm/dl (6.0-8.3)
--- NOTE | 2023-10-22 17:40 | XRay Report ---
SINGLE VIEW CHEST CLINICAL HISTORY: Generalized weakness. FINDINGS: An AP, portable, upright chest radiograph is compared to chest x-ray and chest CT dated 07/30. The cardiomediastinal silhouette is unremarkable. There is chronic elevation right hemidiaphr agm noting bibasilar scarring/atelectasis. No airspace consolidation or large pleural effusion is olya ntified. No pneumothorax is seen. The skeletal structures are osteopenic. There are chronic/healed le ft-sided rib fractures. Postsurgical change is noted in the spine with thoracolumbar spinal rods in p lace. IMPRESSION: No active disease in the chest. ACT 112: Negative or not required by law. Electronically signed by: Efrain Davis M.D. 10/22/2023 5:39 PM
[2023-10-22 17:41] LABS: Troponin I High Sensitivity 7.6 pg/ml (0-20)
[2023-10-22 17:42] LABS: Prothrombin Time 11.3 Seconds (9.0-12.0)
[2023-10-22 17:51] LABS: Thyroid Stimulating Hormone < 0.010 uIu/ml (0.300-4.500)
[2023-10-22 18:00] LABS: Appearance Urine Clear (Clear); Bilirubin Urine Negative (Negative); Blood Urine Negative (Negative); Color Urine Yellow; Glucose Urine UA Trace (Negative); Ketones Urine Negative (Negative); Leukocyte Esterase Urine Negative (Negative); Nitrite Urine Negative (Negative); Protein Urine Negative (Negative); Specific Gravity Urine 1.009 (1.000-1.030); Urobilinogen Urine Negative (Negative); pH Urine 6.5 (4.5-7.5)
[2023-10-22 18:26] LABS: Adenovirus PCR Not Detected (NotDetected); Bordetella parapertussis PCR Not Detected (NotDetected); Bordetella pertussis PCR Not Detected (NotDetected); Chlamydia pneumoniae PCR Not Detected (NotDetected); Coronavirus 229E PCR Not Detected (NotDetected); Coronavirus CoV-2 (COVID19)PCR Not Detected (NotDetected); Coronavirus HKU1 PCR Not Detected (NotDetected); Coronavirus NL63 PCR Not Detected (NotDetected); Coronavirus OC43PCR Not Detected (NotDetected); Human Metapneumovirus PCR Not Detected (NotDetected); Influenza A PCR Not Detected (NotDetected); Influenza B PCR Not Detected (NotDetected); Mycoplasma pneumoniae PCR Not Detected (NotDetected); Parainfluenza Virus 1 PCR Not Detected (NotDetected); Parainfluenza Virus 2 PCR Not Detected (NotDetected); Parainfluenza Virus 3 PCR Not Detected (NotDetected); Parainfluenza Virus 4 PCR Not Detected (NotDetected); Respiratory Syncytial VirusPCR Not Detected (NotDetected); Rhinovirus/Enterovirus PCR Not Detected (NotDetected)
[2023-10-22 18:32] LABS: T4 Free Thyroxine 1.17 ng/dl (0.61-1.60)
--- NOTE | 2023-10-22 19:39 | CT Scan Report ---
Exam(s): CT HEAD Without Contrast EXAM: CT Head Without Intravenous Contrast CLINICAL HISTORY: Reason for exam: weakness. TECHNIQUE: Axial computed tomography images of the head/brain without intravenous contrast. CTDI is elderly brain 78.05 mGy and DLP is 1404.92 mGy-cm. Automated exposure control was utilized for the study. A dose lowering technique was utilized adhering to the principles of ALARA. COMPARISON: No relevant prior studies available. FINDINGS: Brain: Parenchymal volume appears normal for age. Rogers-white matter differentiation maintained. No hemorrhage, mass-effect, or edema. Ventricles: Unremarkable. No hydrocephalus. Bones/joints: Unremarkable. No acute fracture. Soft tissues: Unremarkable. Sinuses: Unremarkable as visualized. Mastoid air cells: Unremarkable as visualized. No mastoid effusion. IMPRESSION: No acute intracranial process. Electronically signed by: Lito Brown M.D. 10/22/23 19:37 PM
--- NOTE | 2023-10-22 20:32 | History & Physical Report ---
Date of Service October 22, 2023 Assessment & Plan (1) Generalized weakness: Plan: Etiology unclear. Electrolytes are WNL. No clear evidence of infection. Patient has been compliant with his medications. Does not appear to be in adrenal crisis - HD stable. His description of weakness seems more severe than general deconditioning. 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 -Admit to medical -PT/OT evaluations appreciated -Check AM cortisol -Endocrinology consultation - question adjustment in medications. question additional workup to assess for possible recurrence of his Wilkinson's? (2) Pulmonary embolism: Plan: Chronic. Patient denies chest pain, cough or SOB. VSS. Adequate oxygenation on 1L/min. He is compliant with his medications -Continue Apixaban (3) Panhypopituitarism: Plan: Chronic. Patient is compliant with his medication. He follows with Dr. Shore of Endocrinology. Last note from 06/25/23. 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 They are working to improve his testosterone levels first then consider growth hormone supplementation if he is still feeling fatigued. -Continue Hydrocortisone -Continue Prednisone -Continue Synthroid and Cytomel -Continue Testosterone -Endocrinology consultation placed - appreciated input (4) HTN (hypertension), benign: Plan: Chronic. BP well controlled -Continue Spironolactone -Continue Metoprolol (5) Hyperlipidemia: Plan: Chronic. 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 Patient was recently admitted to [facility] on 08/13/23 - 08/21/23 after presenting with edema. He was found to have a PE and was treated with heparin gtt with transition to Eliquis. He was discharged to rehab. He reports doing fairly well in rehab. He was discharged home 2 weeks ago and has not been doing well. Patient lives in a split-level home with his . He has 6 steps to the upstairs and 6 steps to the downstairs. He is unable to walk up or down the steps due to profound weakness. He reports that his assists him with lifting his legs. He also reports insomnia and poor sleep over the last week with some "brain fog", brief episodes of confusion and disorientation. His also describes him as being "vidal". He reports being too weak to stand and needing to use a urinal because he is too weak to walk to the bathroom. Weakness only involves his legs. Shoulders/arms not involved. No falls. He reports some HILL mostly due to difficulty moving He denies muscle pain. Fever, chills, cough, chest pain, abdominal pain, [place]red[place] sea, vomiting or diarrhea. No headache, visual disturbance, dizziness or orthostatic symptoms. In the ER he is afebrile, HD stable Allergies Allergy/AdvReac Type Severity Reaction Status Date / Time iron dextran complex Allergy Severe HIVES Verified 10/22/23 19:31 cyclobenzaprine Allergy Intermediate N/V Verified 10/22/23 19:31 Home Medications Medication Instructions Recorded Confirmed Type aspirin 81 mg tablet,delayed 81 mg PO HS 06/17/18 10/22/23 History release spironolactone 25 mg tablet 25 mg PO BID #180 tabs 11/11/22 10/22/23 Rx (Aldactone) sertraline 100 mg tablet 100 mg PO TID #180 tabs 02/04/23 10/22/23 Rx atorvastatin 20 mg tablet 20 mg PO HS #90 tabs 02/05/23 10/22/23 Rx metformin 500 mg tablet,extended 500 mg PO BID #180 tabs 02/18/23 10/22/23 Rx release 24 hr Wheeled Walker #1 ea 03/24/23 10/22/23 Rx testosterone cypionate 200 mg/mL 150 mg (0.75 mL) IM Q7D 90 days 04/17/23 10/22/23 Rx intramuscular oil #9.75 mL syringe with needle, safety 3 mL #100 ea 05/12/23 10/22/23 Rx 25 gauge x 1" (BD Integra Syringe) dexamethasone sodium phosphate 4 4 mg PO ONCE PRN emergency med 06/25/23 10/22/23 History mg/mL injection solution mecobalamin (vitamin B12) 1,000 5,000 mcg PO QPM 06/25/23 10/22/23 History mcg chewable tablet lansoprazole 30 mg capsule,delayed 30 mg PO QAM #90 caps 08/10/23 10/22/23 Rx release metoprolol tartrate 50 mg tablet 50 mg PO TID #270 tabs 08/10/23 10/22/23 Rx hydrocortisone 5 mg tablet 10 mg (2 x 5 mg) PO TID 90 days 08/18/23 10/22/23 Rx #270 tabs docusate sodium 100 mg capsule 100 mg PO BID PRN constipation 09/15/23 10/22/23 History polyethylene glycol 3350 17 17 g PO DAILY PRN constipation 09/15/23 10/22/23 History gram/dose oral powder sennosides 8.6 mg capsule (senna) 17.2 mg PO DAILY PRN constipation 09/15/23 10/22/23 History oxycodone 5 mg tablet 10 mg (2 x 5 mg) PO Q6H PRN pain 10/02/23 10/22/23 Rx #120 tabs pregabalin 150 mg capsule 150 mg PO QID 30 days #120 caps 10/02/23 10/22/23 Rx apixaban 5 mg tablet (Eliquis) 5 mg PO BID 90 days #180 tabs 10/14/23 10/22/23 Rx baclofen 20 mg tablet 20 mg PO TID 10/22/23 10/22/23 History levothyroxine 200 mcg tablet 200 mcg PO DAILYBB 10/22/23 10/22/23 History levothyroxine 50 mcg tablet 50 mcg PO DAILYBB 10/22/23 10/22/23 History liothyronine 5 mcg tablet 5 mcg PO QPM 10/22/23 10/22/23 History mirtazapine 15 mg tablet 7.5 mg PO HS 10/22/23 10/22/23 History prednisone 1 mg tablet 2 mg PO TID 10/22/23 10/22/23 History sulfamethoxazole 400 1 tab PO DAILY 10/22/23 10/22/23 History mg-trimethoprim 80 mg tablet Past Med/Surg History Problem List Generalized weakness (Acute) Back spasm Generalized weakness (Acute) Left upper extremity swelling (Acute) Low back pain (Acute) Pulmonary embolism (Acute) GH (growth hormone) deficiency from radiation Osteoporosis Vitamin B12 deficiency Vitamin D deficiency Pressure ulcer of both feet, stage 3 Depression Vitamin B12 deficiency Coarse tremors Panhypopituitarism History of hypophysectomy 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 Hyperparathyroidism due to vitamin D deficiency Diabetes mellitus type 2 in obese HTN (hypertension), benign Hyperlipidemia Chronic pain disorder Lumbar myelopathy Lumbar spinal stenosis Generalized polyneuropathy Constipation due to opioid therapy Complex sleep apnea syndrome Nocturnal hypoxemia Osteoporosis Urinary incontinence GERD (gastroesophageal reflux disease) Impaired functional mobility and activity tolerance Lymphedema Restless leg syndrome Chronic venous insufficiency of lower extremity Medical History Chronic osteomyelitis of spine History of recurrent deep vein thrombosis IVC filter Fusion of spine, thoracolumbar region T5-S1 Nocturnal enuresis Micronutrients deficiency Deep vein thrombosis LT. ankle and RT upper arm>only taking aspirin currently History of anesthesia problem "remembers being aware and hearing talking and conversations during his spinal surgery at [facility]" Hyperlipidemia Hypertension History of COVID-19 05/2021, home test, not hosp; headache, weakness, fatigue, no appetite, fever, diarrhea>resolved. Sleep apnea hx cpap>bipap>now not using anything; new study scheduled w/dr dean in 06/2022 Osteomyelitis Spinal stenosis Osteoporosis Status post gamma knife treatment pituitary gland Back pain chronic Pituitary tumor hx Surgical History Hx of tonsillectomy Hx of colonoscopy History of lumbar fusion T5-S1 History of cholecystectomy Family History Sister Breast cancer Multiple sclerosis Father Colorectal cancer Myocardial infarction Brother Myocardial infarction Prostate cancer Pancreatitis Denies family history of Ovarian cancer Social History Smoking Status: Never smoker Second Hand Exposure: Yes (as a child-father smoked); Do You Dip or Chew Tobacco: No; Hx Alcohol Use: Yes Alcohol type: wine Hx Substance Use: No Preferred Language: Tamaz[place] Communication Ability: Effective Visual Impairment: No Limitations Hearing Ability: Normal Vegetable Cook Required: No Beliefs That Will Affect Care: None marital status: Current Living Situation: Spouse current occupational status: other current occupation: Disabled How many Children do You have: 1 Other Information That Helps Us Care for You: No Feels Safe at Home: Yes Safety Concerns: Feels Safe At This Time Childhood Exposure to Second-Hand Smoke: Yes Diet: regular caffeine: Yes during the past year weight has: decreased > 10 lbs Dental Care, Regularly: No Physical Activity Frequency: Does not Exercise Seatbelt Use: always Sunscreen Use: Yes Assistive Devices: Glasses and Walker Review of Systems Review of Systems: All systems reviewed & are unremarkable except as noted in HPI & below Physical Exam Physical Exam: General: patient resting comfortably, NAD, non-toxic in appearance, AA&O x 4 Skin: warm, dry, intact, no rashes or lesions HEENT: NC/AT, PERRL, EOMI, anicteric sclera, conjunctiva without injection, external ear normal to inspection and nontender, nares patent, moist mucus membranes, dentition intact, no oropharyngeal lesions, neck supple, trachea midline, no LAD, no thyromegaly, no JVD Heart: +S1/S2, regular, no m/r/g Lungs: equal air entry bilaterally, no rales/rhonchi/wheezes Abd: +BS, soft, NT/ND, no masses/organomegaly/ascites Ext: warm, 2+ pulses in UE/LE bilaterally, no clubbing/cyanosis, +lymphedema of bilateral LE Neuro: nonfocal, patient AA&O x 4, speech intact, no facial droop, moving all extremities on command with equal strength 5/5 Results & Data Results & Data Vital Signs (Past 12 Hours) Vital Signs Temp Pulse Resp BP Pulse Ox O2 Del Method 10/22/23 16:54 73 10/22/23 16:31 36.9 C 72 14 147/77 H 95 Room Air Laboratory Results Laboratory Results WBC 10.42 K/ul (4.8-10.8) 10/22/23 16:45 RBC 5.44 M/uL (4.70-6.10) 10/22/23 16:45 Hgb 14.2 g/dl (14.0-18.0) 10/22/23 16:45 Hct 43.8 % (42.0-52.0) 10/22/23 16:45 MCV 80.5 fL (80.0-100.0) 10/22/23 16:45 MCH 26.1 pg (25.0-34.0) 10/22/23 16:45 MCHC 32.4 g/dL (32.0-36.0) 10/22/23 16:45 RDW Std Deviation 48.5 fL (36.4-46.3) H 10/22/23 16:45 RDW Coeff of Tristan 16.7 % (11.5-14.5) H 10/22/23 16:45 Plt Count 152 K/uL (130-400) 10/22/23 16:45 MPV 11.1 fL (9.4-12.4) 10/22/23 16:45 Immature Gran % (Auto) 0.9 % 10/22/23 16:45 Neut % (Auto) 76.8 % 10/22/23 16:45 Lymph % (Auto) 13.9 % 10/22/23 16:45 Johnston % (Auto) 5.8 % 10/22/23 16:45 Eos % (Auto) 2.3 % 10/22/23 16:45 Baso % (Auto) 0.3 % 10/22/23 16:45 Neut # (Auto) 8.01 K/uL (1.40-6.50) H 10/22/23 16:45 Lymph # (Auto) 1.45 K/uL (1.20-3.40) 10/22/23 16:45 Johnston # (Auto) 0.60 K/uL (0.11-0.59) H 10/22/23 16:45 Eos # (Auto) 0.24 K/uL (0.00-0.50) 10/22/23 16:45 Baso # (Auto) 0.03 K/uL (0.00-0.20) 10/22/23 16:45 Immature Gran # (Auto) 0.09 K/uL (0.01-0.20) 10/22/23 16:45 PT 11.3 Seconds (9.0-12.0) 10/22/23 16:45 INR 1.0 (0.9-1.1) 10/22/23 16:45 Sodium 131 mmol/L (136-145) L 10/22/23 16:45 Potassium 4.1 mmol/L (3.5-5.1) 10/22/23 16:45 Chloride 99 mmol/L (98-107) 10/22/23 16:45 Carbon Dioxide 26 mmol/L (21-32) 10/22/23 16:45 Anion Gap 6 (3-11) 10/22/23 16:45 BUN 8 mg/dl (6-23) 10/22/23 16:45 Creatinine 0.59 mg/dl (0.6-1.4) L 10/22/23 16:45 Est Cr Clr Drug Dosing 166.8 ml/min 10/22/23 16:45 Est GFR ( Amer) 124.0 ml/min 10/22/23 16:45 Est GFR (Non-Af Amer) 107.0 ml/min 10/22/23 16:45 BUN/Creatinine Ratio 13.6 (10-20) 10/22/23 16:45 Glucose 286 mg/dl (70-99(Fasting)) H 10/22/23 16:45 POC Glucose 294 mg/dl (70-99) H 10/22/23 22:23 Lactate 2.0 mmol/L (0.4-2.0) 10/22/23 19:17 Calcium 8.8 mg/dl (8.6-10.3) 10/22/23 16:45 Phosphorus 2.4 mg/dl (2.5-4.9) L 10/22/23 16:45 Magnesium 1.9 mg/dl (1.7-2.4) 10/22/23 16:45 Total Bilirubin 0.5 mg/dl (0.2-1.0) 10/22/23 16:45 AST 29 U/L (13-39) 10/22/23 16:45 ALT 38 U/L (7-52) 10/22/23 16:45 Alkaline Phosphatase 107 U/L (34-104) H 10/22/23 16:45 Total Creatine Kinase 407 U/L (30-223) H 10/22/23 16:45 Troponin I High Sens 7.6 pg/ml (0-20) 10/22/23 16:45 Total Protein 6.5 gm/dl (6.0-8.3) 10/22/23 16:45 Albumin 3.5 gm/dl (3.4-5.0) 10/22/23 16:45 Globulin 3.0 gm/dl (2.5-4.0) 10/22/23 16:45 Albumin/Globulin Ratio 1.2 (0.9-2) 10/22/23 16:45 TSH < 0.010 uIu/ml (0.300-4.500) L 10/22/23 16:45 Free T4 1.17 ng/dl (0.61-1.60) 10/22/23 16:45 Urine Color Yellow 10/22/23 17:41 Urine Appearance Clear (Clear) 10/22/23 17:41 Urine pH 6.5 (4.5-7.5) 10/22/23 17:41 Ur Specific [place] 1.009 (1.000-1.030) 10/22/23 17:41 Urine Protein Negative (Negative) 10/22/23 17:41 Urine Glucose (UA) Trace (Negative) H 10/22/23 17:41 Urine Ketones Negative (Negative) 10/22/23 17:41 Urine Blood Negative (Negative) 10/22/23 17:41 Urine Nitrite Negative (Negative) 10/22/23 17:41 Urine Bilirubin Negative (Negative) 10/22/23 17:41 Urine Urobilinogen Negative (Negative) 10/22/23 17:41 Ur Leukocyte Esterase Negative (Negative) 10/22/23 17:41 Adenovirus (PCR) Not Detected (NotDetected) 10/22/23 17:20 B. pertussis DNA (PCR) Not Detected (NotDetected) 10/22/23 17:20 B.parapertussis DNA PCR Not Detected (NotDetected) 10/22/23 17:20 C. pneumoniae DNA (PCR) Not Detected (NotDetected) 10/22/23 17:20 Coronavirus OC43 (PCR) Not Detected (NotDetected) 10/22/23 17:20 Coronavirus HKU1 (PCR) Not Detected (NotDetected) 10/22/23 17:20 Coronavirus 229E (PCR) Not Detected (NotDetected) 10/22/23 17:20 SARS-CoV-2 (PCR) Not Detected (NotDetected) 10/22/23 17:20 Coronavirus NL63 (PCR) Not Detected (NotDetected) 10/22/23 17:20 Human Metapneumovir PCR Not Detected (NotDetected) 10/22/23 17:20 Influenza Type A (PCR) Not Detected (NotDetected) 10/22/23 17:20 Influenza Type B (PCR) Not Detected (NotDetected) 10/22/23 17:20 M. pneumoniae (PCR) Not Detected (NotDetected) 10/22/23 17:20 Parainfluenza 1 (PCR) Not Detected (NotDetected) 10/22/23 17:20 Parainfluenza 2 (PCR) Not Detected (NotDetected) 10/22/23 17:20 Parainfluenza 3 (PCR) Not Detected (NotDetected) 10/22/23 17:20 Parainfluenza 4 (PCR) Not Detected (NotDetected) 10/22/23 17:20 RSV (PCR) Not Detected (NotDetected) 10/22/23 17:20 Entero/Rhino (PCR) Not Detected (NotDetected) 10/22/23 17:20 Impressions Chest X-Ray 10/22/23 17:04 SINGLE VIEW CHEST CLINICAL HISTORY: Generalized weakness. FINDINGS: An AP, portable, upright chest radiograph is compared to chest x-ray and chest CT dated 08/13/2023. The cardiomediastinal silhouette is unremarkable. There is chronic elevation right hemidiaphragm noting bibasilar scarring/atelectasis. No airspace consolidation or large pleural effusion is identified. No pneumothorax is seen. The skeletal structures are osteopenic. There are chronic/healed left-sided rib fractures. Postsurgical change is noted in the spine with thoracolumbar spinal rods in place. IMPRESSION: No active disease in the chest. ACT 112: Negative or not required by law. Electronically signed by: Efrain Davis M.D. 10/22/2023 5:[address] 10/22/23 18:13 Exam(s): CT HEAD Without Contrast EXAM: CT Head Without Intravenous Contrast CLINICAL HISTORY: Reason for exam: weakness. TECHNIQUE: Axial computed tomography images of the head/brain without intravenous contrast. CTDI is elderly brain 78.05 mGy and DLP is 1404.92 mGy-cm. Automated exposure control was utilized for the study. A dose lowering technique was utilized adhering to the principles of ALARA. COMPARISON: No relevant prior studies available. FINDINGS: Brain: Parenchymal volume appears normal for age. Rogers-white matter differentiation maintained. No hemorrhage, mass-effect, or edema. Ventricles: Unremarkable. No hydrocephalus. Bones/joints: Unremarkable. No acute fracture. Soft tissues: Unremarkable. Sinuses: Unremarkable as visualized. Mastoid air cells: Unremarkable as visualized. No mastoid effusion. IMPRESSION: No acute intracranial process. Electronically signed by: Lito Brown M.D. 10/22/23 19:37 PM PG Care Time/CCT Total # of Minutes Spent Total Time Spent with Patient: Total time spent is greater than 50% in coordination of care (as documented) at patient's floor/unit and/or counseling patient: Coding Level of Care Code 06873 INT INP/OBS CARE 3/75MIN Diagnoses Generalized weakness R53.1 Pulmonary embolism I26.99 Acute cor pulmonale presence: unspecified Chronicity: acute Pulmonary embolism type: unspecified Panhypopituitarism E23.0 HTN (hypertension), benign I10 Hyperlipidemia, unspecified hyperlipidemia type E78.5 Hyperlipidemia type: unspecified (2) Pulmonary embolism Acute cor pulmonale presence: unspecified Chronicity: acute Pulmonary embolism type: unspecified Qualified Code(s): I26.99 - Other pulmonary embolism without acute cor pulmonale (5) Hyperlipidemia Hyperlipidemia type: unspecified Qualified Code(s): E78.5 - Hyperlipidemia, unspecified
[2023-10-22] MEDS ORDERED: GLUCOSE 10 TAB/TUBE PO PRN (22:08)
[2023-10-22] MEDS ORDERED: CARBOHYDRATES FOR HYPOGLYCEMIA PO PRN (22:08)
[2023-10-22] MEDS ORDERED: ONDANSETRON INJ 2 MG/ML 2 ML VIAL IV PRN (22:08)
[2023-10-22] MEDS ORDERED: GLUCOSE 40% GEL 15 GM TUBE PO PRN (22:08)
[2023-10-22] MEDS ORDERED: DEXTROSE 50% 50 ML SYRINGE IV PRN (22:08)
[2023-10-22] MEDS ORDERED: GLUCAGON FOR INJ 1 MG VIAL SQ PRN (22:08)
[2023-10-22 22:36] LABS: Creatine Kinase 407 U/L (30-223); Phosphorus 2.4 mg/dl (2.5-4.9)
[2023-10-22] MEDS: oxyCODONE HCL IR 5 MG TAB (IMMEDIATE RELEASE) PO PRN (23:24)
[2023-10-22] MEDS: SPIRONOLACTONE 25 MG TAB PO SCH (23:25)
[2023-10-22] MEDS: predniSONE 1 MG TAB PO SCH (23:25)
[2023-10-22] MEDS: ASPIRIN 81 MG ECTAB PO SCH (23:25)
[2023-10-22] MEDS: PREGABALIN 150 MG CAP PO SCH (23:25)
[2023-10-22] MEDS: MIRTAZAPINE TAB 15 MG TAB PO SCH (23:25)
[2023-10-22] MEDS: ATORVASTATIN 20 MG TAB PO SCH (23:25)
[2023-10-22] MEDS: BACLOFEN 20 MG TAB PO SCH (23:25)
[2023-10-22] MEDS: METOPROLOL TARTRATE 50 MG TAB PO SCH (23:26)
[2023-10-22] MEDS: HYDROCORTISONE 10 MG TAB PO SCH (23:26)
[2023-10-22] MEDS: SERTRALINE HCL 100 MG TABLET PO SCH (23:26)
[2023-10-22] MEDS: APIXABAN 5 MG TABLET PO SCH (23:26)
[2023-10-22] MEDS: LIOTHYRONINE SODIUM 5 MCG TAB PO SCH (23:26)
[2023-10-22] MEDS: MAGNESIUM SULFATE / D5W 1 GM/100 ML BAG IV ONE (23:28)
[2023-10-22] MEDS: INSULIN ASPART PER UNIT CHARGE SC SCH (23:28)
[2023-10-23] MEDS: LEVOTHYROXINE SODIUM 200 MCG TABLET PO SCH (05:02)
[2023-10-23] MEDS: LEVOTHYROXINE SODIUM 50 MCG TABLET PO SCH (05:02)
[2023-10-23] MEDS: ACETAMINOPHEN 325 MG TAB PO PRN (06:14)
[2023-10-23 08:16] LABS: Hematocrit (blood only) 40.4 % (42.0-52.0); Hemoglobin 13.2 g/dl (14.0-18.0); Mean Corpuscular Hemoglobin 26.7 pg (25.0-34.0); Mean Corpuscular Hgb Conc 32.7 g/dL (32.0-36.0); Mean Corpuscular Volume 81.6 fL (80.0-100.0); Mean Platelet Volume 11.4 fL (9.4-12.4); Platelet Count 143 K/uL (130-400); RDW Standard Deviation 49.9 fL (36.4-46.3); Red Blood Count 4.95 M/uL (4.70-6.10); White Blood Count 10.19 K/ul (4.8-10.8)
[2023-10-23 08:37] LABS: Albumin Level 3.2 gm/dl (3.4-5.0); BUN Creatinine Ratio 11.9 (10-20); Bilirubin Direct 0.1 mg/dl (0-0.2); Bilirubin,Total 0.5 mg/dl (0.2-1.0); Calcium 8.3 mg/dl (8.6-10.3); Creatinine Clr Calc Pharmacy 166.8 ml/min; Potassium 4.3 mmol/L (3.5-5.1); Total Protein 5.9 gm/dl (6.0-8.3)
[2023-10-23] MEDS: SULFA/TRIMETH 400/80MG TAB PO SCH (08:38)
[2023-10-23] MEDS: HYDROCORTISONE SOD 50 MG in SYRINGE 0 ML IV SCH (11:55)
--- NOTE | 2023-10-23 12:56 | Electrocardiogram Report ---
Test Reason : Blood Pressure : / mmHG Vent. Rate : 069 BPM Atrial Rate : 069 BPM P-R Int : 168 ms QRS Dur : 092 ms QT Int : 428 ms P-R-T Axes : 015 028 057 degrees QTc Int : 458 ms Normal sinus rhythm Nonspecific ST and T wave abnormality Abnormal ECG When compared with ECG of 16-AUG-2023 10:59, No significant change was found Confirmed by Misael Bean ([id number]) on 10/23/2023 12:55:46 PM Referred By: REFERRED SELF Confirmed By:Misael Bean
--- NOTE | 2023-10-23 17:57 | Hospitalist Progress Note ---
Date of Service October 23, 2023 Assessment & Plan (1) Generalized weakness: Plan: Patient presented with severe generalized weakness isolated to lower extremities primarily x 2 weeks, etiology unclear. - On admission, electrolytes are WNL, no clear evidence of infection, hemodynamically stable, did not appear to be in adrenal crisis. - Patient's description of weakness seems more severe than general deconditioning. Morbid obesity with BMI 46.3 - Patient reports he has been compliant with his medication and denies any recent changes in medication. - AM cortisol low at 4.19 on 10/23/2023 - Hydrocortisone 50 mg IV Q8H x 3 doses 10/23/23. Patient reported symptom improvement from this. - Consider adjustment in medications. ? May require increased dose of at home oral steroids. - PT/OT evaluations appreciated (2) Panhypopituitarism: Plan: Chronic. Patient is compliant with his medication. - He follows with Dr. Shore of Endocrinology. Last note from 06/25/23. 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 They are working to improve his testosterone levels first then consider growth hormone supplementation if he is still feeling fatigued. - Continue Hydrocortisone - Continue Prednisone - Continue Synthroid and Cytomel - Continue Testosterone -Consider reaching out to endocrinology for medication adjustments if necessary. (3) Pulmonary embolism: Plan: Chronic. Patient denies chest pain, cough or SOB. VSS. Adequate oxygenation on room air. He is compliant with his medications. -Continue Apixaban (4) HTN (hypertension), benign: Plan: Chronic. BP well controlled -Continue Spironolactone -Continue Metoprolol (5) Hyperlipidemia: Plan: Chronic. Stable -Continue Atorvastatin Plan Started hydrocortisone 50 mg IV every 8 hours x 3 doses today. CODE STATUS: DNR/DNI Admission and Anticipated Discharge Date Admission Date: October 22, 2023 Subjective Patient seen and evaluated at bedside. He reports that he is feeling better today. He is not as weak, however he notes that he has not gotten up today to experience any fatigue. He does note that his weakness is primarily isolated to his lower extremities and somewhat of his core, but denies any upper extremity weakness. He sounds discouraged about this new onset of extreme weakness after reportedly doing so well with rehab after his last hospital admission. He denies any other complaints at this time. Physical Exam Physical Exam: General: No acute distress, nondiaphoretic, well-developed, well-nourished. Skin: The skin was without rashes, erythema, edema, or bruising. Cardiac: Regular rate and rhythm without murmurs gallops or rubs. Pulm: Clear to auscultation bilaterally without wheezes, rales or rhonchi. No retractions or accessory muscle use. Abdominal: Positive bowel sounds x 4. Soft, nontender, without masses or organomegaly. No guarding or rebound tenderness. Neuro: A&O x3. No focal neurological deficits. Results & Data Results & Data Vital Signs (Past 12 Hours) Vital Signs Temp Pulse Resp BP Pulse Ox O2 Del Method 10/23/23 15:25 36.5 C 62 16 108/60 93 Room Air 10/23/23 13:50 65 114/68 10/23/23 12:47 Room Air 10/23/23 07:35 36.8 C 61 18 104/59 L 95 Room Air Laboratory Results Reviewed CBC Reviewed CMP Diagnostic Findings Reviewed head CT 10/22/2023 FINDINGS: Brain: Parenchymal volume appears normal for age. Rogers-white matter differentiation maintained. No hemorrhage, mass-effect, or edema. Ventricles: Unremarkable. No hydrocephalus. Bones/joints: Unremarkable. No acute fracture. Soft tissues: Unremarkable. Sinuses: Unremarkable as visualized. Mastoid air cells: Unremarkable as visualized. No mastoid effusion. IMPRESSION: No acute intracranial process. Reviewed CXR 10/22/2023 FINDINGS: An AP, portable, upright chest radiograph is compared to chest x-ray and chest CT dated 08/13/2023. The cardiomediastinal silhouette is unremarkable. There is chronic elevation right hemidiaphragm noting bibasilar scarring/atelectasis. No airspace consolidation or large pleural effusion is identified. No pneumothorax is seen. The skeletal structures are osteopenic. There are chronic/healed left-sided rib fractures. Postsurgical change is noted in the spine with thoracolumbar spinal rods in place. IMPRESSION: No active disease in the chest. PG Care Time/CCT Total # of Minutes Spent Total Time Spent with Patient: Total time spent is greater than 50% in coordination of care (as documented) at patient's floor/unit and/or counseling patient: Coding Level of Care Code 92019 SUB INP/OBS CARE 2/35MIN Diagnoses Generalized weakness R53.1 Panhypopituitarism E23.0 Pulmonary embolism I26.99 Acute cor pulmonale presence: unspecified Chronicity: acute Pulmonary embolism type: unspecified HTN (hypertension), benign I10 Hyperlipidemia, unspecified hyperlipidemia type E78.5 Hyperlipidemia type: unspecified (3) Pulmonary embolism Acute cor pulmonale presence: unspecified Chronicity: acute Pulmonary embolism type: unspecified Qualified Code(s): I26.99 - Other pulmonary embolism without acute cor pulmonale (5) Hyperlipidemia Hyperlipidemia type: unspecified Qualified Code(s): E78.5 - Hyperlipidemia, unspecified
[2023-10-24] MEDS: COUGH DROP (SUGAR FREE) LOZ 24 LOZ/1 BOX BUCCAL ONE (01:27)
[2023-10-24] MEDS: predniSONE 1 MG TAB PO SCH (07:57)
[2023-10-24] MEDS: HYDROCORTISONE 10 MG TAB PO SCH (07:57)
[2023-10-24 08:37] LABS: Hematocrit (blood only) 42.8 % (42.0-52.0); Hemoglobin 13.9 g/dl (14.0-18.0); Mean Corpuscular Hemoglobin 26.2 pg (25.0-34.0); Mean Corpuscular Hgb Conc 32.5 g/dL (32.0-36.0); Mean Corpuscular Volume 80.6 fL (80.0-100.0); Mean Platelet Volume 10.3 fL (9.4-12.4); Platelet Count 130 K/uL (130-400); RDW Coefficient of Variation 16.9 % (11.5-14.5); RDW Standard Deviation 48.8 fL (36.4-46.3); Red Blood Count 5.31 M/uL (4.70-6.10); White Blood Count 10.69 K/ul (4.8-10.8)
[2023-10-24 08:47] LABS: BUN Creatinine Ratio 14.8 (10-20); Calcium 8.6 mg/dl (8.6-10.3); Creatinine Clr Calc Pharmacy 161.4 ml/min; Est GFR (African American) 122.3 ml/min; Est GFR (Non-African American) 105.5 ml/min; Potassium 4.5 mmol/L (3.5-5.1)
[2023-10-24] MEDS: TESTOSTERONE CYPIONATE IM 200 MG/ML VIAL IM SCH (08:59)
[2023-10-24] MEDS ORDERED: TESTOSTERONE CYPIONATE IM 200 MG/ML VIAL IM SCH (09:00)
--- NOTE | 2023-10-24 16:59 | Hospitalist Progress Note ---
Date of Service October 24, 2023 Assessment & Plan (1) Generalized weakness: Plan: Patient presented with severe generalized weakness isolated to lower extremities primarily x 2 weeks, etiology unclear. - On admission, electrolytes are WNL, no clear evidence of infection, hemodynamically stable, did not appear to be in adrenal crisis. - Patient's description of weakness seems more severe than general deconditioning. Morbid obesity with BMI 46.3 - Patient reports he has been compliant with his medication and denies any recent changes in medication. - AM cortisol low at 4.19 on 10/23/2023 - Hydrocortisone 50 mg IV Q8H x 3 doses 10/23/23. Patient reported symptom improvement from this. - Continue with at home dosage of prednisone and hydrocortisone. -- Evaluate symptoms tomorrow, and depending on this consider adjustment in medications. ? May require increased dose of at home oral steroids. - PT/OT evaluations appreciated (2) Panhypopituitarism: Plan: Chronic. Patient is compliant with his medication. - He follows with Dr. Shore of Endocrinology. Last note from 06/25/23. 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 They are working to improve his testosterone levels first then consider growth hormone supplementation if he is still feeling fatigued. - Continue Hydrocortisone - Continue Prednisone - Continue Synthroid and Cytomel - Continue Testosterone - Consider reaching out to endocrinology for medication adjustments if necessary. (3) Pulmonary embolism: Plan: Chronic. Patient denies chest pain, cough or SOB. VSS. Adequate oxygenation on room air. He is compliant with his medications. -Continue Apixaban (4) HTN (hypertension), benign: Plan: Chronic. BP well controlled -Continue Spironolactone -Continue Metoprolol (5) Hyperlipidemia: Plan: Chronic. Stable -Continue Atorvastatin Plan Resumed at home dosing of hydrocortisone and prednisone. CODE STATUS: DNR/DNI Admission and Anticipated Discharge Date Admission Date: October 22, 2023 Subjective Patient seen and evaluated at bedside. He reports that he is feeling better compared to a few days ago. He reports that he experienced a headache with some body aches at midnight, however this resolved and he slept well afterwards. He currently denies fever, chills, headache, body aches, nausea, vomiting, diarrhea, abdominal pain, shortness of breath, chest pain, lightheadedness, or dizziness. We discussed the plan of trialing his usual doses of steroids to see if he continues to feel well versus having to increase his at home regimen. He is agreeable. He has no other complaints at this time. Physical Exam Physical Exam: General: No acute distress, nondiaphoretic, well-developed, well-nourished. Skin: The skin was without rashes, erythema, edema, or bruising. Cardiac: Regular rate and rhythm without murmurs gallops or rubs. Pulm: Clear to auscultation bilaterally without wheezes, rales or rhonchi. No retractions or accessory muscle use. Abdominal: Positive bowel sounds x 4. Soft, nontender, without masses or organomegaly. No guarding or rebound tenderness. Neuro: A&O x3. No focal neurological deficits. Results & Data Results & Data Vital Signs (Past 12 Hours) Vital Signs Temp Pulse Pulse Resp BP Pulse Ox O2 Del Method 10/24/23 14:41 36.6 C 70 18 146/68 H Room Air 10/24/23 14:17 36.3 C L 63 18 126/61 93 Room Air 10/24/23 11:58 Room Air 10/24/23 07:13 36.4 C L 77 18 110/64 94 Room Air Laboratory Results Reviewed CBC Reviewed BMP PG Care Time/CCT Total # of Minutes Spent Total Time Spent with Patient: Total time spent is greater than 50% in coordination of care (as documented) at patient's floor/unit and/or counseling patient: Coding Level of Care Code 00249 SUB INP/OBS CARE 2/35MIN Diagnoses Generalized weakness R53.1 Panhypopituitarism E23.0 Pulmonary embolism I26.99 Acute cor pulmonale presence: unspecified Chronicity: acute Pulmonary embolism type: unspecified HTN (hypertension), benign I10 Hyperlipidemia, unspecified hyperlipidemia type E78.5 Hyperlipidemia type: unspecified (3) Pulmonary embolism Acute cor pulmonale presence: unspecified Chronicity: acute Pulmonary embolism type: unspecified Qualified Code(s): I26.99 - Other pulmonary embolism without acute cor pulmonale (5) Hyperlipidemia Hyperlipidemia type: unspecified Qualified Code(s): E78.5 - Hyperlipidemia, unspecified
[2023-10-25 06:28] LABS: Anion Gap 5 (3-11); BUN Creatinine Ratio 15.1 (10-20); Blood Urea Nitrogen 11 mg/dl (6-23); Calcium 8.6 mg/dl (8.6-10.3); Carbon Dioxide 30 mmol/L (21-32); Chloride 101 mmol/L (98-107); Creatinine Clr Calc Pharmacy 134.9 ml/min; Est GFR (African American) 113.6 ml/min; Glucose 210 mg/dl (70-99(Fasting)); Hemoglobin 13.7 g/dl (14.0-18.0); Mean Corpuscular Hemoglobin 25.9 pg (25.0-34.0); Mean Corpuscular Hgb Conc 31.9 g/dL (32.0-36.0); Mean Corpuscular Volume 81.4 fL (80.0-100.0); Mean Platelet Volume 10.9 fL (9.4-12.4); Platelet Count 160 K/uL (130-400); RDW Coefficient of Variation 17.3 % (11.5-14.5); Red Blood Count 5.28 M/uL (4.70-6.10); Sodium 136 mmol/L (136-145); White Blood Count 12.08 K/ul (4.8-10.8)
--- NOTE | 2023-10-25 14:09 | Hospitalist Progress Note ---
Date of Service October 25, 2023 Assessment & Plan (1) Generalized weakness: Plan: Patient presented with severe generalized weakness isolated to lower extremities primarily x 2 weeks, etiology unclear. - On admission, electrolytes are WNL, no clear evidence of infection, hemodynamically stable, did not appear to be in adrenal crisis. - Patient's description of weakness seems more severe than general deconditioning. Morbid obesity with BMI 46.3 - Patient reports he has been compliant with his medication and denies any recent changes in medication. - AM cortisol low at 4.19 on 10/23/2023 - Hydrocortisone 50 mg IV Q8H x 3 doses 10/23/23. Patient reported symptom improvement from this. - Continue with at home dosage of prednisone and hydrocortisone. -- Patient continues to report improvement in symptoms with home dosage. Continue to monitor symptoms on this regimen. Could consider adjustment outpatient if needed. - PT/OT evaluations appreciated --> recommending acute rehab. Patient is agreeable. Referrals have been sent out. (2) Panhypopituitarism: Plan: Chronic. Patient is compliant with his medication. - He follows with Dr. Shore of Endocrinology. Last note from 06/25/23. 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 They are working to improve his testosterone levels first then consider growth hormone supplementation if he is still feeling fatigued. - Continue Hydrocortisone - Continue Prednisone - Continue Synthroid and Cytomel - Continue Testosterone - Consider reaching out to endocrinology for medication adjustments if necessary. (3) Pulmonary embolism: Plan: Chronic. Patient denies chest pain, cough or SOB. VSS. Adequate oxygenation on room air. He is compliant with his medications. -Continue Apixaban (4) HTN (hypertension), benign: Plan: Chronic. BP well controlled -Continue Spironolactone -Continue Metoprolol (5) Hyperlipidemia: Plan: Chronic. Stable -Continue Atorvastatin Plan Reviewed PT and OT notes. Discussed discharge planning with case management. CODE STATUS: DNR/DNI Admission and Anticipated Discharge Date Admission Date: October 22, 2023 Subjective Patient seen and evaluated in bedside chair. He reports that he continues to feel well. He did work with PT today, where they had a discussion about acute rehab upon discharge. Patient is agreeable. Referrals have been sent to [facility] as this is where the patient was recently discharged from and reports a positive experience. Physical Exam Physical Exam: General: No acute distress, nondiaphoretic, well-developed, well-nourished. Skin: The skin was without rashes, erythema, edema, or bruising. Cardiac: Regular rate and rhythm without murmurs gallops or rubs. Pulm: Clear to auscultation bilaterally without wheezes, rales or rhonchi. No retractions or accessory muscle use. Abdominal: Positive bowel sounds x 4. Soft, nontender, without masses or organomegaly. No guarding or rebound tenderness. Neuro: A&O x3. No focal neurological deficits. Results & Data Results & Data Vital Signs (Past 12 Hours) Vital Signs Temp Pulse Resp BP Pulse Ox O2 Del Method 10/25/23 09:16 Room Air 10/25/23 07:41 36.9 C 55 L 18 120/66 92 Room Air Laboratory Results Reviewed CBC Reviewed BMP PG Care Time/CCT Total # of Minutes Spent Total Time Spent with Patient: Total time spent is greater than 50% in coordination of care (as documented) at patient's floor/unit and/or counseling patient: Coding Level of Care Code 54386 SUB INP/OBS CARE 2/35MIN Diagnoses Generalized weakness R53.1 Panhypopituitarism E23.0 Pulmonary embolism I26.99 Acute cor pulmonale presence: unspecified Chronicity: acute Pulmonary embolism type: unspecified HTN (hypertension), benign I10 Hyperlipidemia, unspecified hyperlipidemia type E78.5 Hyperlipidemia type: unspecified (3) Pulmonary embolism Acute cor pulmonale presence: unspecified Chronicity: acute Pulmonary e mbolism type: unspecified Qualified Code(s): I26.99 - Other pulmonary embolism without acute cor pulmonale (5) Hyperlipidemia Hyperlipidemia type: unspecified Qualified Code(s): E78.5 - Hyperlipidemia, unspecified
[2023-10-26 07:10] LABS: BUN Creatinine Ratio 16.9 (10-20); Calcium 8.5 mg/dl (8.6-10.3); Creatinine Clr Calc Pharmacy 151.4 ml/min; Est GFR (African American) 119.2 ml/min; Est GFR (Non-African American) 102.8 ml/min; Potassium 4.3 mmol/L (3.5-5.1)
[2023-10-26 07:14] LABS: Hematocrit (blood only) 40.8 % (42.0-52.0); Hemoglobin 13.2 g/dl (14.0-18.0); Mean Corpuscular Hemoglobin 26.4 pg (25.0-34.0); Mean Corpuscular Hgb Conc 32.4 g/dL (32.0-36.0); Mean Corpuscular Volume 81.6 fL (80.0-100.0); Mean Platelet Volume 10.6 fL (9.4-12.4); Platelet Count 128 K/uL (130-400); RDW Coefficient of Variation 17.6 % (11.5-14.5); RDW Standard Deviation 50.4 fL (36.4-46.3); White Blood Count 10.14 K/ul (4.8-10.8)
[2023-10-26] MEDS: DOCUSATE SODIUM 100 MG CAP PO PRN (07:51)
--- NOTE | 2023-10-26 13:05 | Hospitalist Progress Note ---
Date of Service October 26, 2023 Assessment & Plan (1) Generalized weakness: Plan: Patient presented with severe generalized weakness isolated to lower extremities primarily x 2 weeks, etiology unclear. - On admission, electrolytes are WNL, no clear evidence of infection, hemodynamically stable, did not appear to be in adrenal crisis. - Patient's description of weakness seems more severe than general deconditioning. Morbid obesity with BMI 46.3 - Patient reports he has been compliant with his medication and denies any recent changes in medication. - AM cortisol low at 4.19 on 10/23/2023 - Hydrocortisone 50 mg IV Q8H x 3 doses 10/23/23. Patient reported symptom improvement from this. - Continue with at home dosage of prednisone and hydrocortisone. -- Patient continues to report improvement in symptoms with home dosage. Continue to monitor symptoms on this regimen. Could consider adjustment outpatient if needed. -- Recommend endocrinology follow-up outpatient. - PT/OT evaluations appreciated --> recommending acute rehab. Patient is agreeable. Referrals have been sent out. (2) Panhypopituitarism: Plan: Chronic. Patient is compliant with his medication. - He follows with Dr. Shore of Endocrinology. Last note from 06/25/23. 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 They are working to improve his testosterone levels first then consider growth hormone supplementation if he is still feeling fatigued. - Continue Hydrocortisone - Continue Prednisone - Continue Synthroid and Cytomel - Continue Testosterone - Consider reaching out to endocrinology for medication adjustments if necessary. (3) Pulmonary embolism: Plan: Chronic. Patient denies chest pain, cough or SOB. VSS. Adequate oxygenation on room air. He is compliant with his medications. -Continue Apixaban (4) HTN (hypertension), benign: Plan: Chronic. BP well controlled -Continue Spironolactone -Continue Metoprolol (5) Hyperlipidemia: Plan: Chronic. Stable -Continue Atorvastatin Plan Discussed discharge planning with case management. CODE STATUS: DNR/DNI Admission and Anticipated Discharge Date Admission Date: October 22, 2023 Subjective Patient seen and evaluated in bedside chair. He continues to feel well. He reports that he is eager to continue working with therapy. Referrals have been sent to [facility] as this is where the patient was recently discharged from and reports a positive experience. Patient has no complaints at this time. Physical Exam Physical Exam: General: No acute distress, nondiaphoretic, well-developed, well-nourished. Skin: The skin was without rashes, erythema, edema, or bruising. Cardiac: Regular rate and rhythm without murmurs gallops or rubs. Pulm: Clear to auscultation bilaterally without wheezes, rales or rhonchi. No retractions or accessory muscle use. Abdominal: Positive bowel sounds x 4. Soft, nontender, without masses or organomegaly. No guarding or rebound tenderness. Neuro: A&O x3. No focal neurological deficits. Results & Data Results & Data Vital Signs (Past 12 Hours) Vital Signs Temp Pulse Resp BP Pulse Ox O2 Del Method 10/26/23 07:40 Room Air 10/26/23 07:14 36.9 C 66 16 110/61 95 Room Air Laboratory Results Reviewed CBC Reviewed BMP PG Care Time/CCT Total # of Minutes Spent Total Time Spent with Patient: Total time spent is greater than 50% in coordination of care (as documented) at patient's floor/unit and/or counseling patient: Coding Level of Care Code 87117 SUB INP/OBS CARE 2/35MIN Diagnoses Generalized weakness R53.1 Panhypopituitarism E23.0 Pulmonary embolism I26.99 Acute cor pulmonale presence: unspecified Chronicity: acute Pulmonary embolism type: unspecified HTN (hypertension), benign I10 Hyperlipidemia, unspecified hyperlipidemia type E78.5 Hyperlipidemia type: unspecified (3) Pulmonary embolism Acute cor pulmonale presence: unspecified Chronicity: acute Pulmonary embo lism type: unspecified Qualified Code(s): I26.99 - Other pulmonary embolism without acute cor pulmonale (5) Hyperlipidemia Hyperlipidemia type: unspecified Qualified Code(s): E78.5 - Hyperlipidemia, unspecified
[2023-10-27 06:50] LABS: Hematocrit (blood only) 42.2 % (42.0-52.0); Hemoglobin 13.5 g/dl (14.0-18.0); Mean Corpuscular Hemoglobin 26.6 pg (25.0-34.0); Mean Corpuscular Volume 83.1 fL (80.0-100.0); Mean Platelet Volume 11.2 fL (9.4-12.4); Platelet Count 134 K/uL (130-400); RDW Coefficient of Variation 18.1 % (11.5-14.5); RDW Standard Deviation 53.5 fL (36.4-46.3); Red Blood Count 5.08 M/uL (4.70-6.10)
[2023-10-27 07:30] LABS: Calcium 8.5 mg/dl (8.6-10.3); Creatinine Clr Calc Pharmacy 151.4 ml/min; Est GFR (African American) 119.2 ml/min; Est GFR (Non-African American) 102.8 ml/min; Potassium 4.2 mmol/L (3.5-5.1)
[2023-10-27] MEDS: POLYETHYLENE (MIRALAX) 17 GM PACK PO PRN (08:11)
--- NOTE | 2023-10-27 14:12 | Hospitalist Progress Note ---
Date of Service October 27, 2023 Assessment & Plan (1) Generalized weakness: Plan: Patient presented with severe generalized weakness isolated to lower extremities primarily x 2 weeks, etiology unclear. - On admission, electrolytes are WNL, no clear evidence of infection, hemodynamically stable, did not appear to be in adrenal crisis. - Patient's description of weakness seems more severe than general deconditioning. Morbid obesity with BMI 46.3 - Patient reports he has been compliant with his medication and denies any recent changes in medication. - AM cortisol low at 4.19 on 10/23/2023 - Hydrocortisone 50 mg IV Q8H x 3 doses 10/23/23. Patient reported symptom improvement from this. - Continue with at home dosage of prednisone and hydrocortisone. -- Patient continues to report improvement in symptoms with home dosage. Continue to monitor symptoms on this regimen. -- Recommend endocrinology follow-up outpatient. Consider adjustment outpatient if needed. - PT/OT evaluations appreciated --> recommending acute rehab. Patient is agreeable. Referrals have been sent out. - Wound care nurse identified and treated 2 stage III pressure injuries to buttocks 10/27/2023. -- Recommend cleaning buttocks wounds with saline. Cover with Optifoam. Change every 3 days and as needed. Use chair cushion, weight shifts every 15-30 minutes when sitting. Turn at least every 2 hours when in bed. (2) Panhypopituitarism: Plan: Chronic. Patient is compliant with his medication. - He follows with Dr. Shore of Endocrinology. Last note from 06/25/23. 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 They are working to improve his testosterone levels first then consider growth hormone supplementation if he is still feeling fatigued. - Continue Hydrocortisone - Continue Prednisone - Continue Synthroid and Cytomel - Continue Testosterone - Consider reaching out to endocrinology for medication adjustments if necessary. (3) Pulmonary embolism: Plan: Chronic. Patient denies chest pain, cough or SOB. VSS. Adequate oxygenation on room air. He is compliant with his medications. - Continue Apixaban (4) HTN (hypertension), benign: Plan: Chronic. BP well controlled - Continue Spironolactone - Continue Metoprolol (5) Hyperlipidemia: Plan: Chronic. Stable - Continue Atorvastatin Plan Discussed pressure injuries with wound care nurse. Discussed orthotics option with orthotic specialist. Discussed discharge planning with case management. Reviewed PT/OT notes from today. CODE STATUS: DNR/DNI Admission and Anticipated Discharge Date Admission Date: October 22, 2023 Subjective Patient seen and evaluated at bedside He reports that he continues to feel well. He has no acute complaints. He met with wound therapy this morning due to 2 stage III pressure injuries on his buttocks. He reports good understanding of discussion with wound care nurse. Orthotics plans to see patient at 1430 today and will attempt to fit him into an [id number] plastic AFO, if unable then patient will have outpatient appointment for custom AFO. Additionally, patient is unable to get rehab at [facility]. Referrals have been sent out to other rehab facilities as PT and OT continue to recommend rehab upon discharge. Physical Exam Physical Exam: General: No acute distress, nondiaphoretic, well-developed, well-nourished. Skin: 2 stage III pressure injuries to buttocks. The skin otherwise without rashes, erythema, edema, or bruising. Cardiac: Regular rate and rhythm without murmurs gallops or rubs. Pulm: Clear to auscultation bilaterally without wheezes, rales or rhonchi. No retractions or accessory muscle use. Abdominal: Positive bowel sounds x 4. Soft, nontender, without masses or organomegaly. No guarding or rebound tenderness. Neuro: A&O x3. No focal neurological deficits. Results & Data Results & Data Vital Signs (Past 12 Hours) Vital Signs Temp Pulse Resp BP Pulse Ox O2 Del Method 10/27/23 13:59 58 L 111/68 10/27/23 08:37 Room Air 10/27/23 07:56 36.7 C 62 17 113/57 L 94 Room Air Laboratory Results Reviewed CBC Reviewed BMP PG Care Time/CCT Total # of Minutes Spent Total Time Spent with Patient: Total time spent is greater than 50% in coordination of care (as documented) at patient's floor/unit and/or counseling patient: Coding Level of Care Code 69595 SUB INP/OBS CARE 3/50MIN Diagnoses Generalized weakness R53.1 Panhypopituitarism E23.0 Pulmonary embolism I26.99 Acute cor pulmonale presence: unspecified Chronicity: acute Pulmonary embolism type: unspecified HTN (hypertension), benign I10 Hyperlipidemia, unspecified hyperlipidemia type E78.5 Hyperlipidemia type: unspecified (3) Pulmonary embolism Acute cor pulmonale presence: unspecified Chronicity: acute Pulmonary embolism type: unspecified Qualified Code(s): I26.99 - Other pulmonary embolism without acute cor pulmonale (5) Hyperlipidemia Hyperlipidemia type: unspecified Qualified Code(s): E78.5 - Hyperlipidemia, unspecified
[2023-10-28 07:41] LABS: Hematocrit (blood only) 42.2 % (42.0-52.0); Hemoglobin 13.8 g/dl (14.0-18.0); Mean Corpuscular Hemoglobin 26.9 pg (25.0-34.0); Mean Corpuscular Hgb Conc 32.7 g/dL (32.0-36.0); Mean Corpuscular Volume 82.3 fL (80.0-100.0); Mean Platelet Volume 11.5 fL (9.4-12.4); Platelet Count 146 K/uL (130-400); RDW Coefficient of Variation 18.2 % (11.5-14.5); RDW Standard Deviation 53.3 fL (36.4-46.3); Red Blood Count 5.13 M/uL (4.70-6.10); White Blood Count 11.22 K/ul (4.8-10.8)
[2023-10-28 08:15] LABS: Blood Urea Nitrogen 16 mg/dl (6-23); Calcium 8.7 mg/dl (8.6-10.3); Carbon Dioxide 31 mmol/L (21-32); Chloride 101 mmol/L (98-107); Creatinine Clr Calc Pharmacy 117.2 ml/min; Est GFR (African American) 107.2 ml/min; Est GFR (Non-African American) 92.5 ml/min; Glucose 207 mg/dl (70-99(Fasting))
[2023-10-28 09:44] LABS: Potassium 4.2 mmol/L (3.5-5.1)
--- NOTE | 2023-10-28 13:24 | Hospitalist Progress Note ---
Date of Service October 28, 2023 Assessment & Plan (1) Generalized weakness: Plan: Patient presented with severe generalized weakness isolated to lower extremities primarily x 2 weeks, etiology unclear. - On admission, electrolytes are WNL, no clear evidence of infection, hemodynamically stable, did not appear to be in adrenal crisis. - Patient's description of weakness seems more severe than general deconditioning. Morbid obesity with BMI 46.3 - Patient reports he has been compliant with his medication and denies any recent changes in medication. - AM cortisol low at 4.19 on 10/23/2023 - Hydrocortisone 50 mg IV Q8H x 3 doses 10/23/23. Patient reported symptom improvement from this. - Continue with at home dosage of prednisone and hydrocortisone. -- Patient continues to report improvement in symptoms with home dosage. Continue to monitor symptoms on this regimen. -- Recommend endocrinology follow-up outpatient. Consider adjustment outpatient if needed. - PT/OT evaluations appreciated --> recommending acute rehab. Patient is agreeable. Referrals have been sent out. - Wound care nurse identified and treated 2 stage III pressure injuries to buttocks 10/27/2023. -- Recommend cleaning buttocks wounds with saline. Cover with Optifoam. Change every 3 days and as needed. Use chair cushion, weight shifts every 15-30 minutes when sitting. Turn at least every 2 hours when in bed. - Orthotics consulted for left AFO. Patient needs custom AFO to be done at outpatient office. They gave the patient their contact info to set up an appointment after discharge. (2) Panhypopituitarism: Plan: Chronic. Patient is compliant with his medication. - He follows with Dr. Shore of Endocrinology. Last note from 06/25/23. 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 They are working to improve his testosterone levels first then consider growth hormone supplementation if he is still feeling fatigued. - Continue Hydrocortisone - Continue Prednisone - Continue Synthroid and Cytomel - Continue Testosterone - Consider reaching out to endocrinology for medication adjustments if necessary. (3) Pulmonary embolism: Plan: Chronic. Patient denies chest pain, cough or SOB. VSS. Adequate oxygenation on room air. He is compliant with his medications. - Continue Apixaban (4) HTN (hypertension), benign: Plan: Chronic. BP well controlled - Continue Spironolactone - Continue Metoprolol (5) Hyperlipidemia: Plan: Chronic. Stable - Continue Atorvastatin Plan Discussed discharge planning with case management. Waiting to hear back from [facility] for rehab placement. CODE STATUS: DNR/DNI Admission and Anticipated Discharge Date Admission Date: October 22, 2023 Subjective Patient seen and evaluated in bedside chair. He reports that he worked with PT earlier today and walked the halls. He states that his strength was better than he anticipated. He reports that he feels well and has no complaints at this t jimmy. We are waiting on placement for rehab. Physical Exam Physical Exam: General: No acute distress, nondiaphoretic, well-developed, well-nourished. Skin: 2 stage III pressure injuries to buttocks. The skin otherwise without rashes, erythema, edema, or bruising. Cardiac: Regular rate and rhythm without murmurs gallops or rubs. Pulm: Clear to auscultation bilaterally without wheezes, rales or rhonchi. No retractions or accessory muscle use. Abdominal: Positive bowel sounds x 4. Soft, nontender, without masses or organomegaly. No guarding or rebound tenderness. Neuro: A&O x3. No focal neurological deficits. Results & Data Results & Data Vital Signs (Past 12 Hours) Vital Signs Temp Pulse Pulse Resp BP Pulse Ox O2 Del Method 10/28/23 13:06 58 L 106/54 L 93 Room Air 10/28/23 08:41 Room Air 10/28/23 08:22 36.7 C 65 16 119/54 L 93 Room Air 10/28/23 07:27 36.3 C L 56 L 16 109/63 93 Room Air Laboratory Results Reviewed CBC Reviewed BMP PG Care Time/CCT Total # of Minutes Spent Total Time Spent with Patient: Total time spent is greater than 50% in coordination of care (as documented) at patient's floor/unit and/or counseling patient: Coding Level of Care Code 69402 SUB INP/OBS CARE 2/35MIN Diagnoses Generalized weakness R53.1 Panhypopituitarism E23.0 Pulmonary embolism I26.99 Acute cor pulmonale presence: unspecified Chronicity: acute Pulmonary embolism type: unspecified HTN (hypertension), benign I10 Hyperlipidemia, unspecified hyperlipidemia type E78.5 Hyperlipidemia type: unspecified (3) Pulmonary embolism Acute cor pulmonale presence: unspecified Chronicity: acute Pulmonary embolism type: unspecified Qualified Code(s): I26.99 - Other pulmonary embolism without acute cor pulmonale (5) Hyperlipidemia Hyperlipidemia type: unspecified Qualified Code(s): E78.5 - Hyperlipidemia, unspecified
[2023-10-29 06:32] LABS: Hemoglobin 13.5 g/dl (14.0-18.0); Mean Corpuscular Hemoglobin 26.4 pg (25.0-34.0); Mean Corpuscular Hgb Conc 32.1 g/dL (32.0-36.0); Mean Corpuscular Volume 82.2 fL (80.0-100.0); Mean Platelet Volume 11.4 fL (9.4-12.4); Platelet Count 149 K/uL (130-400); RDW Coefficient of Variation 17.7 % (11.5-14.5); RDW Standard Deviation 52.8 fL (36.4-46.3); Red Blood Count 5.11 M/uL (4.70-6.10); White Blood Count 11.75 K/ul (4.8-10.8)
[2023-10-29 06:34] LABS: BUN Creatinine Ratio 18.4 (10-20); Calcium 8.5 mg/dl (8.6-10.3); Creatinine Clr Calc Pharmacy 129.5 ml/min; Est GFR (African American) 111.7 ml/min; Est GFR (Non-African American) 96.4 ml/min; Potassium 4.4 mmol/L (3.5-5.1)
--- NOTE | 2023-10-29 14:14 | Hospitalist Progress Note ---
Date of Service October 29, 2023 Assessment & Plan (1) Generalized weakness: Plan: Mr Hughes presented with severe generalized weakness isolated to lower extremities primarily x 2 weeks - AM cortisol low at 4.19 on 10/23/2023 - Hydrocortisone 50 mg IV Q8H x 3 doses 10/23/23. Patient reported symptom improvement from this. - Continue with at home dosage of prednisone and hydrocortisone. -- continues to report improvement in symptoms with home dosage. Now ambulating down hallway with PT (with several rest breaks) -- continue PT/OT, rehab at [facility] planned, discussed with pillowcase cleanermanager transmission for Thursday - Wound care nurse identified and treated 2 stage III pressure injuries to buttocks 10/27/2023. -- Recommend cleaning buttocks wounds with saline. Cover with Optifoam. Change every 3 days and as needed. Use chair cushion, weight shifts every 15-30 minutes when sitting. Turn at least every 2 hours when in bed. - Orthotics consulted for left AFO. Patient needs custom AFO to be done at outpatient office. They gave the patient their contact info to set up an appointment after discharge. (2) Panhypopituitarism: Plan: Chronic. Patient is compliant with his medication. - He follows with Dr. Shore of Endocrinology. Last note from 06/25/23. 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 They are working to improve his testosterone levels first then consider growth hormone supplementation if he is still feeling fatigued. - Continue Hydrocortisone - Continue Prednisone - Continue Synthroid and Cytomel - Continue Testosterone - Follow up with Dr. Shore (3) Pulmonary embolism: Plan: Remote history of VTEs - Continue Apixaban Plan Dental pain - from decayed and cracked molar (31 or 32) - pain radiating to submandibular area with drinking cold liquids -orajel PRN, avoid cold liquids, follow up with his dentist Diabetes type 2 - A1c 7.0 -increased insulins 10/28 -resume metformin Morbid obesity with BMI 46.3 -may benefit from GLP-1 (diabetes, HTN, HLD, chronic back pain, morbid obesity) HTN - continue spironolactone and metoprolol HLD - cont atorvastatin Chronic back pain with opioid dependence - continue oxycodone Mild leukocytosis related to steroid effect CODE STATUS: DNR/DNI Admission and Anticipated Discharge Date Admission Date: October 22, 2023 Subjective feeling well today, slowly getting stronger, the last 2 or 3 days has noticed sharp stabbing pain in the right submandibular area, this occurs when drinking cold liquids but not with food or warm liquids Physical Exam 2 Physical Exam: PHYSICAL EXAMINATION Last 24h vital signs reviewed, see documentation in flowsheet General: comfortable appearing, no distress, sitting up in chair working on laptop HEENT: Normocephalic, atraumatic, pupils round and equal, sclerae anicteric, no conjunctival injection, moist mucus membranes submandibular area without tenderness to palpation no masses, right posterior lower molar either #31 or 32 is cracked in half and discolored, no associated gum swelling Lungs: Normal respiratory effort. Heart: Abdomen: Extremities: Warm, dry, well-perfused. No extremity edema. Neuro: Alert and oriented x 4, face symmetric, moves 4 extremities well Psych: Normal affect and behavior Results & Data Results & Data Vital Signs (Past 12 Hours) Vital Signs Temp Pulse Resp BP Pulse Ox O2 Del Method 10/29/23 13:45 67 18 158/74 H 96 Room Air 10/29/23 08:07 54 L 105/51 L 94 Room Air 10/29/23 07:28 36.4 C 53 L 18 109/72 94 Room Air 10/29/23 07:16 Room Air Laboratory Results 10/29/23 05:38 10/29/23 05:38 PG Care Time/CCT Total # of Minutes Spent Total Time Spent with Patient: Total time spent is greater than 50% in coordination of care (as documented) at patient's floor/unit and/or counseling patient: Coding Level of Care Code 60543 SUB INP/OBS CARE 2/35MIN Diagnoses Generalized weakness R53.1 Panhypopituitarism E23.0 Pulmonary embolism I26.99 Acute cor pulmonale presence: unspecified Chronicity: acute Pulmonary embolism type: unspecified (3) Pulmonary embolism Acute cor pulmonale presence: unspecified Chronicity: acute Pulmonary embolism type: unspecified Qualified Code(s): I26.99 - Other pulmonary embolism without acute cor pulmonale
[2023-10-29] MEDS ORDERED: BENZOCAINE 20% (ORAJEL) 11.9 GM TUBE MT PRN (14:15)
[2023-10-29] MEDS ORDERED: bisacodyL 10 MG SUPP PR PRN (17:31)
[2023-10-29] MEDS: POLYETHYLENE (MIRALAX) 17 GM PACK PO SCH (18:13)
[2023-10-29] MEDS: SENNA 8.6 MG TAB PO SCH (21:27)
--- NOTE | 2023-10-30 14:26 | Hospitalist Progress Note ---
Date of Service October 30, 2023 Assessment & Plan (1) Generalized weakness: Plan: Mr Hughes presented with severe generalized weakness isolated to lower extremities primarily x 2 weeks - AM cortisol low at 4.19 on 10/23/2023 - Hydrocortisone 50 mg IV Q8H x 3 doses 10/23/23. Patient reported symptom improvement from this. - Continue with at home dosage of prednisone and hydrocortisone. -- continues to report improvement in symptoms with home dosage. Now ambulating down hallway with PT (with several rest breaks) -- continue PT/OT, rehab at [facility] planned, discussed with case management specialistdietary services manager for Thursday - Wound care nurse identified and treated 2 stage III pressure injuries to buttocks 10/27/2023. -- Recommend cleaning buttocks wounds with saline. Cover with Optifoam. Change every 3 days and as needed. Use chair cushion, weight shifts every 15-30 minutes when sitting. Turn at least every 2 hours when in bed. - Orthotics consulted for left AFO. Patient needs custom AFO to be done at outpatient office. They gave the patient their contact info to set up an appointment after discharge. (2) Panhypopituitarism: Plan: Chronic. Patient is compliant with his medication. - He follows with Dr. Shore of Endocrinology. Last note from 06/25/23. 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 They are working to improve his testosterone levels first then consider growth hormone supplementation if he is still feeling fatigued. - Continue Hydrocortisone - Continue Prednisone - Continue Synthroid and Cytomel - Continue Testosterone - Follow up with Dr. Shore (3) Pulmonary embolism: Plan: Remote history of VTEs - Continue Apixaban Plan Dental pain - from decayed and cracked molar (31 or 32) - pain radiating to submandibular area with drinking cold liquids -orajel PRN, avoid cold liquids, follow up with his dentist Mild asx hypotension 10/29 - AM metoprolol held, held diuretic Diabetes type 2 - A1c 7.0 -increased insulins 10/28 - one high BG 10/29 -resume metformin Morbid obesity with BMI 46.3 -may benefit from GLP-1 (diabetes, HTN, HLD, chronic back pain, morbid obesity) HTN - continue spironolactone and metoprolol HLD - cont atorvastatin Chronic back pain with opioid dependence - continue oxycodone Mild leukocytosis related to steroid effect CODE STATUS: DNR/DNI Admission and Anticipated Discharge Date Admission Date: October 22, 2023 Subjective no events, R throat/dental pain persists, no BM since 10/20 constipated but no abdominal pain or nausea Physical Exam Physical Exam: PHYSICAL EXAMINATION Last 24h vital signs reviewed, see documentation in flowsheet General: comfortable appearing, no distress, sitting up in chair working on laptop HEENT: Normocephalic, atraumatic, pupils round and equal, sclerae anicteric, no conjunctival injection, moist mucus membranes poor dentition Lungs: Normal respiratory effort. CTAB Heart: reg no mrg Abdomen: sntnd +BT Extremities: Warm, dry, well-perfused. No extremity edema. Neuro: Alert and oriented x 4, face symmetric, moves 4 extremities well Psych: Normal affect and behavior Results & Data Results & Data Vital Signs (Past 12 Hours) Vital Signs Temp Pulse Pulse Resp BP Pulse Ox O2 Del Method 10/30/23 11:48 37.0 C 62 18 108/70 100 Room Air 10/30/23 07:41 36.9 C 54 L 18 96/54 L 93 Room Air 10/30/23 07:29 Room Air 10/30/23 07:01 36.8 C 54 L 18 106/60 94 Room Air PG Care Time/CCT Total # of Minutes Spent Total Time Spent with Patient: Total time spent is greater than 50% in coordination of care (as documented) at patient's floor/unit and/or counseling patient: Coding Level of Care Code 62399 SUB INP/OBS CARE 2/35MIN Diagnoses Generalized weakness R53.1 Panhypopituitarism E23.0 Pulmonary embolism I26.99 Acute cor pulmonale presence: unspecified Chronicity: acute Pulmonary embolism type: unspecified (3) Pulmonary embolism Acute cor pulmonale presence: unspecified Chronicity: acute Pulmonary embolism type: unspecified Qualified Code(s): I26.99 - Other pulmonary embolism without acute cor pulmonale
--- NOTE | 2023-10-31 14:12 | Hospitalist Progress Note ---
Date of Service October 31, 2023 Assessment & Plan (1) Generalized weakness: Plan: Mr Hughes presented with severe generalized weakness isolated to lower extremities primarily x 2 weeks - AM cortisol low at 4.19 on 10/23/2023 - Hydrocortisone 50 mg IV Q8H x 3 doses 10/23/23. Patient reported symptom improvement from this. - Continue with at home dosage of prednisone and hydrocortisone. -- continues to report improvement in symptoms with home dosage. Now ambulating down hallway with PT (with several rest breaks) -- continue PT/OT, rehab at [facility] planned, discussed with case packer and sealersafety and occupational health manager for Thursday - Wound care nurse identified and treated 2 stage III pressure injuries to buttocks 10/27/2023. -- Recommend cleaning buttocks wounds with saline. Cover with Optifoam. Change every 3 days and as needed. Use chair cushion, weight shifts every 15-30 minutes when sitting. q2h turns when in bed. - Orthotics consulted for left AFO. Patient needs custom AFO to be done at outpatient office. They gave the patient their contact info to set up an appointment after discharge. (2) Panhypopituitarism: Plan: Chronic. Patient is compliant with his medication. - He follows with Dr. Shore of Endocrinology. Last note from 06/25/23. 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 They are working to improve his testosterone levels first then consider growth hormone supplementation if he is still feeling fatigued. - Continue Hydrocortisone - Continue Prednisone - Continue Synthroid and Cytomel - Continue Testosterone - Follow up with Dr. Shore (3) Pulmonary embolism: Plan: Remote history of VTEs - Continue Apixaban Plan Dental pain - from decayed and cracked molar (31 or 32) - pain radiating to submandibular area with drinking cold liquids -orajel changed to qid [facility] for trial, avoid cold liquids, follow up with his dentist -AM CBC Mild asx hypotension 10/29 - AM metoprolol held, held diuretic - improved Diabetes type 2 - A1c 7.0 -increased insulins 10/28 - BG at goal 10/30 -resume metformin Morbid obesity with BMI 46.3 -may benefit from GLP-1 (diabetes, HTN, HLD, chronic back pain, morbid obesity) HTN - continue spironolactone and metoprolol HLD - cont atorvastatin Chronic back pain with opioid dependence - continue oxycodone Mild leukocytosis related to steroid effect - AM CBC - AM BMP CODE STATUS: DNR/DNI Admission and Anticipated Discharge Date Admission Date: October 22, 2023 Subjective remains constipated - no BM, no nausea, but lots of bowel sounds R dental/submandibular pain unchanged Physical Exam 2 Physical Exam: PHYSICAL EXAMINATION Last 24h vital signs reviewed, see documentation in flowsheet General: comfortable appearing, no distress, sitting up in bed HEENT: Normocephalic, atraumatic, pupils round and equal, sclerae anicteric, no conjunctival injection, moist mucus membranes poor dentition Lungs: Normal respiratory effort. CTAB Heart: reg no mrg Abdomen: sntnd ++BT Extremities: Warm, dry, well-perfused. No extremity edema. Neuro: Alert and oriented x 4, face symmetric, moves 4 extremities well Psych: Normal affect and behavior Results & Data Results & Data Vital Signs (Past 12 Hours) Vital Signs Temp Pulse Resp BP Pulse Ox O2 Del Method 10/31/23 07:49 36.3 C L 51 L 18 118/62 92 Room Air Laboratory Results 10/29/23 05:38 10/29/23 05:38 PG Care Time/CCT Total # of Minutes Spent Total Time Spent with Patient: Total time spent is greater than 50% in coordination of care (as documented) at patient's floor/unit and/or counseling patient: Coding Level of Care Code 63331 SUB INP/OBS CARE 2/35MIN Diagnoses Generalized weakness R53.1 Panhypopituitarism E23.0 Pulmonary embolism I26.99 Acute cor pulmonale presence: unspecified Chronicity: acute Pulmonary embolism type: unspecified (3) Pulmonary embolism Acute cor pulmonale presence: unspecified Chronicity: acute Pulmonary embolism type: unspecified Qualified Code(s): I26.99 - Other pulmonary embolism without acute cor pulmonale
[2023-10-31] MEDS: BENZOCAINE 20% (ORAJEL) 11.9 GM TUBE MT SCH (14:19)
[2023-11-01 06:14] LABS: Hematocrit (blood only) 43.8 % (42.0-52.0); Hemoglobin 13.7 g/dl (14.0-18.0); Mean Corpuscular Hgb Conc 31.3 g/dL (32.0-36.0); Mean Corpuscular Volume 83.3 fL (80.0-100.0); Mean Platelet Volume 10.8 fL (9.4-12.4); Platelet Count 146 K/uL (130-400); RDW Coefficient of Variation 18.4 % (11.5-14.5); RDW Standard Deviation 53.4 fL (36.4-46.3); Red Blood Count 5.26 M/uL (4.70-6.10); White Blood Count 11.59 K/ul (4.8-10.8)
[2023-11-01 06:38] LABS: BUN Creatinine Ratio 17.3 (10-20); Calcium 8.6 mg/dl (8.6-10.3); Creatinine Clr Calc Pharmacy 131.3 ml/min; Est GFR (African American) 112.4 ml/min; Est GFR (Non-African American) 96.9 ml/min; Potassium 4.5 mmol/L (3.5-5.1)
--- NOTE | 2023-11-01 08:10 | Hospitalist Progress Note ---
Date of Service November 01, 2023 Assessment & Plan (1) Generalized weakness: Plan: Mr Hughes presented with severe generalized weakness isolated to lower extremities primarily x 2 weeks - AM cortisol low at 4.19 on 10/23/2023 - Hydrocortisone 50 mg IV Q8H x 3 doses 10/23/23. Patient reported symptom improvement from this. - Continue with home dosage of prednisone and hydrocortisone. -- continues to report improvement in symptoms with home dosage. Now ambulating down hallway with PT (with several rest breaks) -- continue PT/OT, rehab at [facility] planned, discussed with case therapisttraffic manager for Thursday - Wound care nurse identified and treated 2 stage III pressure injuries to buttocks 10/27/2023. -- Recommend cleaning buttocks wounds with saline. Cover with Optifoam. Change every 3 days and as needed. Use chair cushion, weight shifts every 15-30 minutes when sitting. q2h turns when in bed. - Orthotics consulted for left AFO. Patient needs custom AFO to be done at outpatient office. They gave the patient their contact info to set up an appointment after discharge. (2) Panhypopituitarism: Plan: Chronic. Patient is compliant with his medication. - He follows with Dr. Shoer of Endocrinology. Last note from 06/25/23. 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 They are working to improve his testosterone levels first then consider growth hormone supplementation if he is still feeling fatigued. - Continue Hydrocortisone - Continue Prednisone - Continue Synthroid and Cytomel - Continue Testosterone - Follow up with Dr. Shore (3) Pulmonary embolism: Plan: Remote history of VTEs - Continue Apixaban Plan Dental pain - from decayed and cracked molar (31 or 32) - pain radiating to submandibular area with drinking cold liquids -orajel changed to qid [facility] for trial, avoid cold liquids, follow up with his dentist -CBC with persistent leukocytosis despite no IV steroids x days -trial Augmentin for potential dental infection. repeat CBC in apx 5-7 days Mild asx hypotension 10/29 - AM metoprolol held, held diuretic - improved -resume diuretic in am Diabetes type 2 - A1c 7.0 -increased insulins 10/28 - BG mostly at goal 10/30 -resumed metformin Morbid obesity with BMI 46.3 -may benefit from GLP-1 (diabetes, HTN, HLD, chronic back pain, morbid obesity) HTN - continue spironolactone and metoprolol HLD - cont atorvastatin Chronic back pain with opioid dependence - continue oxycodone BMP reviewed 10/31 - normal CODE STATUS: DNR/DNI Admission and Anticipated Discharge Date Admission Date: October 22, 2023 Subjective R lower jaw/throat pain unchanged and orajel was not effective otherwise doing well and slowly/steadily regaining strength with walking Physical Exam 2 Physical Exam: PHYSICAL EXAMINATION Last 24h vital signs reviewed, see documentation in flowsheet General: comfortable appearing, no distress, sitting up in chair Exam unchanged 10/31 HEENT: Normocephalic, atraumatic, pupils round and equal, sclerae anicteric, no conjunctival injection, moist mucus membranes poor dentition Lungs: Normal respiratory effort. CTAB Heart: reg no mrg Abdomen: sntnd ++BT Extremities: Warm, dry, well-perfused. No extremity edema. Neuro: Alert and oriented x 4, face symmetric, moves 4 extremities well Psych: Normal affect and behavior Results & Data Results & Data Vital Signs (Past 12 Hours) Vital Signs Pulse BP 10/31/23 21:27 60 157/66 H Laboratory Results 11/01/23 05:41 11/01/23 05:41 PG Care Time/CCT Total # of Minutes Spent Total Time Spent with Patient: Total time spent is greater than 50% in coordination of care (as documented) at patient's floor/unit and/or counseling patient: Coding Level of Care Code 92397 SUB INP/OBS CARE 2/35MIN Diagnoses Generalized weakness R53.1 Panhypopituitarism E23.0 Pulmonary embolism I26.99 Acute cor pulmonale presence: unspecified Chronicity: acute Pulmonary embolism type: unspecified (3) Pulmonary embolism Acute cor pulmonale presence: unspecified Chronicity: acute Pulmonary embolism type: unspecified Qualified Code(s): I26.99 - Other pulmonary embolism without acute cor pulmonale
[2023-11-01] MEDS: AMOXICILLIN/CLAVULANATE 875 MG TAB PO STA (08:53)
[2023-11-01] MEDS: ADVANCED PROBIOTIC 625 MG CAPSULE PO SCH (10:05)
[2023-11-01] MEDS: AMOXICILLIN/CLAVULANATE 875 MG TAB PO SCH (17:13)
[2023-11-02] MEDS: oxyCODONE HCL IR 5 MG TAB (IMMEDIATE RELEASE) PO PRN (13:13)
--- NOTE | 2023-11-02 17:09 | Discharge Summary ---
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 Patient was recently admitted to [facility] on 08/13/23 - 08/21/23 after presenting with edema. He was found to have a PE and was treated with heparin gtt with transition to Eliquis. He was discharged to rehab. He reports doing fairly well in rehab. He was discharged home 2 weeks ago and has not been doing well. Patient lives in a split-level home with his . He has 6 steps to the upstairs and 6 steps to the downstairs. He is unable to walk up or down the steps due to profound weakness. He reports that his assists him with lifting his legs. He also reports insomnia and poor sleep over the last week with some "brain fog", brief episodes of confusion and disorientation. His also describes him as being "vidal". He reports being too weak to stand and needing to use a urinal because he is too weak to walk to the bathroom. Weakness only involves his legs. Shoulders/arms not involved. No falls. He reports some HILL mostly due to difficulty moving He denies muscle pain. Fever, chills, cough, chest pain, abdominal pain, nausea, vomiting or diarrhea. No headache, visual disturbance, dizziness or orthostatic symptoms. In the ER he is afebrile, HD stable Principal Diagnosis Weakness related to adrenal insufficiency Discharge Exam PHYSICAL EXAMINATION Last 24h vital signs reviewed, see documentation in flowsheet General: comfortable appearing, no distress, sitting up in chair Exam unchanged 11/01 HEENT: Normocephalic, atraumatic, pupils round and equal, sclerae anicteric, no conjunctival injection, moist mucus membranes poor dentition Lungs: Normal respiratory effort. CTAB Heart: reg no mrg Abdomen: sntnd +BT Extremities: Warm, dry, well-perfused. No extremity edema. Neuro: Alert and oriented x 4, face symmetric, moves 4 extremities well Psych: Normal affect and behavior Discharge Data Allergies Allergy/AdvReac Type Severity Reaction Status Date / Time iron dextran complex Allergy Severe HIVES Verified 10/22/23 19:31 cyclobenzaprine Allergy Intermediate N/V Verified 10/22/23 19:31 Consultations 10/22/23 19:48 ED Decision to Admit Stat 10/22/23 20:52 Consult Endocrinology Routine Ordered Studies 10/22/23 18:13 CT head/brain wo con Stat Chest X-Ray 10/22/23 17:04 SINGLE VIEW CHEST CLINICAL HISTORY: Generalized weakness. FINDINGS: An AP, portable, upright chest radiograph is compared to chest x-ray and chest CT dated 08/13/2023. The cardiomediastinal silhouette is unremarkable. There is chronic elevation right hemidiaphragm noting bibasilar scarring/atelectasis. No airspace consolidation or large pleural effusion is identified. No pneumothorax is seen. The skeletal structures are osteopenic. There are chronic/healed left-sided rib fractures. Postsurgical change is noted in the spine with thoracolumbar spinal rods in place. IMPRESSION: No active disease in the chest. ACT 112: Negative or not required by law. Electronically signed by: Efrain Davis M.D. 10/22/2023 5:[address] 10/22/23 18:13 Exam(s): CT HEAD Without Contrast EXAM: CT Head Without Intravenous Contrast CLINICAL HISTORY: Reason for exam: weakness. TECHNIQUE: Axial computed tomography images of the head/brain without intravenous contrast. CTDI is elderly brain 78.05 mGy and DLP is 1404.92 mGy-cm. Automated exposure control was utilized for the study. A dose lowering technique was utilized adhering to the principles of ALARA. COMPARISON: No relevant prior studies available. FINDINGS: Brain: Parenchymal volume appears normal for age. Rogers-white matter differentiation maintained. No hemorrhage, mass-effect, or edema. Ventricles: Unremarkable. No hydrocephalus. Bones/joints: Unremarkable. No acute fracture. Soft tissues: Unremarkable. Sinuses: Unremarkable as visualized. Mastoid air cells: Unremarkable as visualized. No mastoid effusion. IMPRESSION: No acute intracranial process. Electronically signed by: Lito Brown M.D. 10/22/23 19:37 PM 11/01/23 05:41 11/01/23 05:41 Hospital Course (1) Generalized weakness: Mr Hughes is a 63 y/o with panhypopituitarism who presented with severe generalized weakness isolated to lower extremities primarily x 2 weeks No specific precipitating cause found but improved with stress dose steroids for adrenal insufficiency. - AM cortisol low at 4.19 on 10/23/2023 - Hydrocortisone 50 mg IV Q8H x 3 doses 10/23/23. Patient reported symptom improvement from this. - Continue with home dosage of prednisone and hydrocortisone. -- continues to report improvement in symptoms with home dosage. Now ambulating down hallway with PT (with several rest breaks) -- continue PT/OT, rehab at [facility] - Wound care nurse identified and treated 2 stage III pressure injuries to buttocks 10/27/2023. -- Recommend cleaning buttocks wounds with saline. Cover with Optifoam. Change every 3 days and as needed. Use chair cushion, weight shifts every 15-30 minutes when sitting. q2h turns when in bed. - Orthotics consulted for left AFO. Patient needs custom AFO to be done at outpatient office. They gave the patient their contact info to set up an appointment after discharge. (2) Panhypopituitarism: Chronic. Patient is compliant with his medication. - He follows with Dr. Shore of Endocrinology. Last note from 06/25/23. 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 They are working to improve his testosterone levels first then consider growth hormone supplementation if he is still feeling fatigued. - Continue Hydrocortisone - Continue Prednisone - Continue Synthroid and Cytomel - Continue Testosterone - Follow up with Dr. Shore (3) Pulmonary embolism: Remote history of VTEs - Continue Apixaban Plan Dental pain - from decayed and cracked molar (31 or 32) - pain radiating to submandibular area with drinking cold liquids -orajel PRN was not particularly effective, avoid cold liquids, follow up with his dentist -CBC with persistent leukocytosis despite no IV steroids x days -trial Augmentin for potential dental infection. repeat CBC in apx 5-7 days Mild asx hypotension 10/29 - AM metoprolol held, held diuretic - improved -resumed diuretic Diabetes type 2 - A1c 7.0 -resumed metformin Morbid obesity with BMI 46.3 -may benefit from GLP-1 as outpatient (diabetes, HTN, HLD, chronic back pain, morbid obesity) HTN - continue spironolactone and metoprolol HLD - cont atorvastatin Chronic back pain with opioid dependence - continue oxycodone Hx spinal OM on chronic bactrim suppression CODE STATUS: DNR/DNI Total Time Total Time Spent Total Time Spent (In Minutes): I personally spent: 35 minutes today on clinical care activities including: reviewing chart notes and vital signs discussion with healthcare customer service examining and counseling the patient counseling the patient's family writing orders, discharge orders and instructions documentation Discharge Plan Discharge Items Patient Disposition: Transfer Snf Fac Reason For Visit: GENERALIZED WEAKNESS Discharge Diagnosis: Adrenal insufficiency due to panhypopituitarism Activity: Resume your previous activity Weightbearing: Full weightbearing Non-emergency contact: Primary Care Provider Call non-emergency contact if: you have any medication questions and your symptoms worsen Follow-up/Referrals: David Jacob, [Primary Care Provider] - Diet: Carb Consistent or DM2 Addtl Attending Provider Instructions: Continue hydrocortisone Schedule follow up with Dr. Shore, endocrinology PT/OT evaluate and treat Diabetic diet BG checks qAC Aspart/lispro insulin premeal as needed to keep BG<180 - Wound care nurse identified and treated 2 stage III pressure injuries to buttocks 10/27/2023. -- Recommend cleaning buttocks wounds with saline. Cover with Optifoam. Change every 3 days and as needed. Use chair cushion, weight shifts every 15-30 minutes when sitting. Turn at least every 2 hours when in bed. - Orthotics consulted for left AFO. Patient needs custom AFO to be done at outpatient office. They gave the patient their contact info to set up an appointment after discharge. -treat with 7 days augmentin to see if dental pain improves -CBC in 1 week -schedule follow up with his dentist as soon as possible Pending Studies at Discharge: No Stand-Alone Forms: My [facility] Skilled Items Patient informed of condition?: Yes DNR: Yes Discharge Level of Care: Skilled Communicable Disease: No Discharge Prognosis: Improving Lines: None Urinary Catheter: No Medications and DC Order Prescriptions: New amoxicillin-pot clavulanate 875-125 mg Tablet 1 tab PO BIDM 6 Days Qty: 12 0RF oxycodone 5 mg Tablet 10 mg PO Q6H PRN (Reason: pain) Qty: 24 0RF acetaminophen 325 mg Tablet 650 mg PO Q4H PRN (Reason: fever or pain) Qty: 0 0RF polyethylene glycol 3350 [Miralax] 17 gram Powder In Packet 17 g PO BID17 Qty: 0 0RF bisacodyl 10 mg Suppository 10 mg OH DAILY PRN (Reason: constipation) Qty: 0 0RF Advanced Probiotic 625 mg (10 billion cell) Capsule See Rx Instructions .ROUTE .COMPLEX Qty: 0 0RF Rx Instructions: 1 cap daily for 2 weeks Continued spironolactone [Aldactone] 25 mg tablet 25 mg PO BID Qty: 180 3RF metformin 500 mg tablet extended release 24 hr 500 mg PO BID Qty: 180 3RF (DME) Wheeled Walker Misc See Rx Instructions .Route Qty: 1 0RF Rx Instructions: As directed with seat testosterone cypionate 200 mg/mL oil 150 mg IM Q7D 90 Days Qty: 9.75 3RF Rx Instructions: saturdays (DME) BD Integra Syringe 3 mL 25 gauge x 1" syringe See Rx Instructions .Route Qty: 100 0RF Rx Instructions: inject teterone every 7 days lansoprazole 30 mg capsule,delayed release(DR/EC) 30 mg PO QAM Qty: 90 3RF metoprolol tartrate 50 mg tablet 50 mg PO TID Qty: 270 1RF docusate sodium 100 mg capsule 100 mg PO BID PRN (Reason: constipation) Patient Comments: CONFIRMED W/ PT AND ON [facility] MEDLIST 09/15/23. (PT ONLY TAKE PRN) senna 8.6 mg capsule 17.2 mg PO DAILY PRN (Reason: constipation) Patient Comments: CONFIRMED W/ PT AND ON [facility] MEDLIST 09/15/23.PT ONLY TAKES PRN pregabalin 150 mg capsule 150 mg PO QID 30 Days Qty: 120 1RF Eliquis 5 mg tablet 5 mg PO BID 90 Days Qty: 180 3RF dexamethasone sodium phosphate 4 mg/mL solution 4 mg PO ONCE PRN (Reason: emergency med) Rx Instructions: take one 4 mg for emergency mecobalamin (vitamin B12) 1,000 mcg tablet,chewable 5,000 mcg PO QPM sertraline 100 mg tablet 100 mg PO TID Qty: 180 2RF atorvastatin 20 mg tablet 20 mg PO HS Qty: 90 3RF aspirin 81 mg Tablet,Delayed Release (Dr/Ec) 81 mg PO HS hydrocortisone 5 mg tablet 10 mg PO TID 90 Days Qty: 270 0RF sulfamethoxazole-trimethoprim 400-80 mg tablet 1 tab PO DAILY levothyroxine 50 mcg tablet 50 mcg PO DAILYBB levothyroxine 200 mcg tablet 200 mcg PO DAILYBB Rx Instructions: total dose 250 prednisone 1 mg tablet 2 mg PO TID Rx Instructions: pt states Dr. spencer increased dose from 1 mg to 1 mg to start 10/23/23 liothyronine 5 mcg tablet 5 mcg PO QPM baclofen 20 mg tablet 20 mg PO TID mirtazapine 15 mg tablet 7.5 mg PO HS Rx Instructions: to start to cut tablet in 06/02 tonight = 7.5 mg per pt Discontinued polyethylene glycol 3350 17 gram/dose powder 17 g PO DAILY PRN (Reason: constipation) Patient Comments: CONFIRMED W/ PT AND ON [facility] MEDLIST 09/15/23. oxycodone 5 mg tablet 10 mg PO Q6H PRN (Reason: pain) Qty: 120 0RF Discharge Orders: Discharge Order (Routine); Ordered 11/02/23 Ordered By: Irene Ortez/Other Patient Handouts: Preventing Deep Vein Thrombosis Admission Data Admit Date/Time: 10/22/23 20:52 Attending Provider: Irene Devries Admit Provider: Guadalupe Dodson Primary Care Provider: David Jacob Other Providers: Ezra Goodman; Guadalupe Dodson; Barbie Miner [facility] Other Interventions: Discharge Summary Assessment (RN) Last Done: 11/02/23 09:52 Coding Level of Care Code 04025 INP/OBS DISCH >30 MIN Diagnoses Generalized weakness R53.1 Panhypopituitarism E23.0 Pulmonary embolism I26.99 Acute cor pulmonale presence: unspecified Chronicity: acute Pulmonary embolism type: unspecified
== END 2023-11-02 13:51 | DRG 644 ==
LOC: ED 16:25 → SUATTDRO 20:52 → 3N 20:52

== ENCOUNTER 2024-11-06 14:33 | Inpatient (IN) ==
--- NOTE | 2024-11-06 14:40 | Emergency Department Note ---
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 Patient denies any fevers, chills, cough, congestion, vomiting. Patient reports he has been compliant with his Eliquis. On evaluation the patient no distress, afebrile with stable vital signs. He appears hypervolemic with 1+ bilateral lower extremity pitting edema which patient reports is his baseline. He exhibits 3/5 strength of bilateral lower extremities. EKG without overt acute ischemia. CXR negative for acute cardiopulmonary process per my personal preliminary review/interpretation. WBC 15K without left shift. H/H similar to prior. Platelets within normal limits. Chemistry without metabolic acidosis. Electrolytes without significant abnormality. AST 40, similar to prior values. Activity troponin 7.4, within normal limits. BNP within normal limits. Lipase not elevated. TSH is 0.01 however free T4 within normal limits. CTA of the chest was performed and was negative for PE or acute cardiopulmonary process otherwise. Apparently upon being transferred to the CT table and back the patient began to experience acute on chronic flare of his back pain with spasm. I did meet with the patient and had ordered IV Valium and 10 mg of oral oxycodone which is double his home dose to obtain pain control. However upon RN attempt to administer these the patient refused oral oxycodone and insisted that he needed IV narcotics. I did meet with the patient again and explained that it was not in his best interest if these other medications will be effective. Nonetheless he insisted that he needed IV narcotics and a "high dose". He always gets this when he comes to the hospital. Given his flare of acute on chronic pain where he believes he requires IV narcotics and has had difficulty walking from his baseline he agrees with plan for admission for further management. Case was discussed with Dr. Roque, [facility] hospitalist, who will evaluate the patient for admission. Further management per admitting team. Triage Nursing notes reviewed and agree them. Prior/external medical records reviewed Vital Signs: reviewed Differential diagnosis: Reactive airway disease, pneumonia, pneumothorax, COPD, CHF, infections, cardiac ischemia, pulmonary embolism, musculoskeletal, gastrointestinal, as well as other pathologies. ER treatment provided: See below. Diagnostics interpreted by me: ECG: Normal sinus rhythm, 81 bpm, no ectopy, no overt ST elevation or depression, QTc 448, QRS 86. Cardiac Monitoring: An order for continuous cardiac monitoring was placed and demonstrated normal sinus rhythm, 81 bpm, no ectopy. Laboratory studies: See below Imaging studies: See below Consultation(s): Case was discussed with Dr. Roque, [facility] hospitalist, who will evaluate the patient for admission. HPI: Per MDM. ROS: See above HPI for pertinent positives & negatives. A total of 10 systems reviewed and were otherwise negative. VITALS:See Below PHYSICAL EXAMINATION: GENERAL: Awake, alert, chronically ill-appearing, in no distress, BMI 40. HENT: Normocephalic, atraumatic. Oropharynx unremarkable. EYES: Normal conjunctiva. Sclera non-icteric. NECK: Supple. No nuchal rigidity. FROM. No JVD. RESPIRATORY: Clear to auscultation. CARDIAC: Regular rate, normal rhythm. Extremities warm and well perfused. Pulses equal. ABDOMEN: Soft, non-distended. No tenderness to palpation. No rebound or guarding. No masses. MUSCULOSKELETAL: Chest examination reveals no tenderness. Generalized lumbar discomfort without midline tenderness palpation or step-offs. There is no CVA tenderness to palpation. No joint edema. LOWER EXTREMITIES: Calves are equal size bilaterally and non-tender. 1+ BLE edema. No discoloration. NEURO: Cranial nerves II-XII grossly intact. 5/5 strength and SI LT of bilateral upper extremities. 3/5 strength and SILT of bilateral lower extremities. Lower extremity DTRs within normal limits. There is no clonus. SKIN: No rash or jaundice noted. Juni Omer MD Past Med/Surg History Problem List (Updated 11/07/24 @ 04:18 by Juni Omer MD) Pleuritic chest pain (Acute) Acute exacerbation of chronic low back pain (Acute) Chronic anticoagulation On Eliquis for PE. 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 Hyperparathyroidism due to vitamin D deficiency Diabetes mellitus type 2 in obese HTN (hypertension), benign Hyperlipidemia Chronic pain disorder Lumbar myelopathy Lumbar spinal stenosis (Acute) Generalized polyneuropathy Constipation due to opioid therapy Complex sleep apnea syndrome Nocturnal hypoxemia Osteoporosis Urinary incontinence GERD (gastroesophageal reflux disease) Impaired functional mobility and activity tolerance Lymphedema Restless leg syndrome Chronic venous insufficiency of lower extremity Medical History Pulmonary embolism Diabetic ulcer of toe of right foot Chronic osteomyelitis of spine History of recurrent deep vein thrombosis IVC filter Fusion of spine, thoracolumbar region T5-S1 Nocturnal enuresis Micronutrients deficiency Deep vein thrombosis LT. ankle and RT upper arm>only taking aspirin currently History of anesthesia problem "remembers being aware and hearing talking and conversations during his spinal surgery at [facility]" Hyperlipidemia Hypertension History of COVID-19 05/2021, home test, not hosp; headache, weakness, fatigue, no appetite, fever, diarrhea>resolved. Sleep apnea hx cpap>bipap>now not using anything; new study scheduled w/dr dean in 06/2022 Osteomyelitis Spinal stenosis Osteoporosis Status post gamma knife treatment pituitary gland Back pain chronic Pituitary tumor hx Surgical History Hx of tonsillectomy Hx of colonoscopy History of lumbar fusion T5-S1 History of cholecystectomy Family History Sister Breast cancer Multiple sclerosis Father Colorectal cancer Myocardial infarction Brother Myocardial infarction Prostate cancer Pancreatitis Denies family history of Ovarian cancer Social History Smoking Status: Never smoker Second Hand Exposure: Yes (as a child-father smoked); Do You Dip or Chew Tobacco: No; Hx Alcohol Use: No Hx Substance Use: No Preferred Language: Thai Communication Ability: Effective Visual Impairment: No Limitations Hearing Ability: Normal [place] Operator Required: No Beliefs That Will Affect Care: None marital status: Current Living Situation: Spouse current occupational status: other current occupation: Disabled How many Children do You have: 1 Feels Safe at Home: Yes Safety Concerns: Feels Safe At This Time Childhood Exposure to Second-Hand Smoke: Yes Diet: regular caffeine: Yes during the past year weight has: decreased > 10 lbs Dental Care, Regularly: No Physical Activity Frequency: Does not Exercise Seatbelt Use: always Sunscreen Use: Yes Assistive Devices: CPAP, Glasses and Walker Allergies Allergies Allergy/AdvReac Type Severity Reaction Status Date / Time iron dextran complex Allergy Severe HIVES Verified 09/19/24 15:08 cyclobenzaprine Allergy Intermediate N/V Verified 09/19/24 15:08 Home Meds Home Medications Medication Instructions Recorded Confirmed aspirin 81 mg tablet,delayed 81 mg PO HS 06/17/18 11/06/24 release mecobalamin (vitamin B12) 1,000 5,000 mcg PO QPM 06/25/23 11/06/24 mcg chewable tablet mirtazapine 15 mg tablet 7.5 mg PO HS 10/22/23 11/06/24 polyethylene glycol 3350 17 gram 17 g PO BID PRN Constipation 11/23/23 11/06/24 oral powder packet (Miralax) Previous Rx's Medication Instructions Recorded Wheeled Walker #1 ea 03/24/23 syringe with needle, safety 3 mL #100 ea 05/12/23 25 gauge x 1" (BD Integra Syringe) apixaban 5 mg tablet (Eliquis) 5 mg PO BID 90 days #180 tabs 10/14/23 acetaminophen 325 mg tablet 650 mg (2 x 325 mg) PO Q4H PRN 11/02/23 fever or pain #0 tabs baclofen 20 mg tablet 20 mg PO TID 90 days #270 tabs 12/22/23 spironolactone 25 mg tablet 25 mg PO BID #180 tabs 12/22/23 (Aldactone) blood sugar diagnostic (OneTouch #100 ea 04/18/24 Ultra Test strips) blood-glucose meter (OneTouch #1 ea 04/18/24 Ultra2 Meter) lancets 30 gauge (OneTouch #100 ea 04/18/24 UltraSoft 2 Lancet) ferrous gluconate 324 mg (37.5 mg 324 mg PO .every other day #60 tabs 04/21/24 iron) tablet metformin 500 mg tablet,extended 1,000 mg (2 x 500 mg) PO BID #360 07/08/24 release 24 hr tabs liothyronine 5 mcg tablet 5 mcg PO QPM #90 tabs 08/03/24 hydrocortisone 5 mg tablet 10 mg (2 x 5 mg) PO TID #180 tabs 08/16/24 atorvastatin 20 mg tablet 20 mg PO HS #90 tabs 08/29/24 prednisone 1 mg tablet 1 mg PO TID #270 tabs 08/29/24 testosterone cypionate 200 mg/mL 150 mg (0.75 mL) IM Q7D 90 days 09/08/24 intramuscular oil #9.75 mL glipizide 5 mg tablet 5 mg PO BID #120 tabs 09/12/24 levothyroxine 200 mcg tablet 200 mcg PO DAILYBB #90 tabs 09/12/24 pregabalin 150 mg capsule 150 mg PO QID 30 days #120 caps 09/19/24 levothyroxine 50 mcg tablet 50 mcg PO DAILYBB #90 tabs 09/26/24 sulfamethoxazole 400 1 tab PO DAILY #90 tabs 09/26/24 mg-trimethoprim 80 mg tablet semaglutide 1 mg/dose (4 mg/3 mL) 1 mg (0.75 mL) subcut Q7D #3 mL 10/17/24 subcutaneous pen injector sertraline 100 mg tablet 100 mg PO TID #180 tabs 10/17/24 lansoprazole 30 mg capsule,delayed 30 mg PO QAM #90 caps 10/18/24 release oxycodone 5 mg tablet 10 mg (2 x 5 mg) PO Q6H PRN pain 10/18/24 #150 tabs Results & Data (ED) Vital Signs Vital Signs - 24 hr 11/06/24 14:37 11/06/24 14:38 11/06/24 14:45 Temperature 37.3 C Temperature Source Oral Pulse Rate 85 78 85 Pulse Rate [Finger] Pulse Rate from SpO2 Sensor 79 Pulse Rhythm Regular Pulse Rhythm [Finger] Pulse Strength [Finger] Respiratory Rate 18 13 18 Respiratory Effort / Characteristics Non-Labored Respiratory Depth Normal Respiratory Pattern Regular Blood Pressure 118/73 118/73 Blood Pressure [Right Arm] Blood Pressure Mean 94 88 Blood Pressure Mean [Right Arm] Pulse Oximetry 94 95 94 Oxygen Delivery Method Room Air Room Air Oxygen Flow Rate Sepsis Recent Fever Within 48 Hours No Sepsis New/Unexplained Change in Mental Status N/A Sepsis Action Taken by Nursing No Action Required End-Tidal CO2 11/06/24 14:45 11/06/24 15:00 11/06/24 15:07 Temperature Temperature Source Pulse Rate Pulse Rate [Finger] Pulse Rate from SpO2 Sensor Pulse Rhythm Pulse Rhythm [Finger] Pulse Strength [Finger] Respiratory Rate Respiratory Effort / Characteristics Respiratory Depth Respiratory Pattern Blood Pressure Blood Pressure [Right Arm] Blood Pressure Mean Blood Pressure Mean [Right Arm] Pulse Oximetry 94 86 L 96 Oxygen Delivery Method Room Air Room Air Nasal Cannula Oxygen Flow Rate 2 Sepsis Recent Fever Within 48 Hours Sepsis New/Unexplained Change in Mental Status Sepsis Action Taken by Nursing End-Tidal CO2 11/06/24 15:08 11/06/24 16:10 11/06/24 16:42 Temperature Temperature Source Pulse Rate 80 78 86 Pulse Rate [Finger] Pulse Rate from SpO2 Sensor 77 Pulse Rhythm Pulse Rhythm [Finger] Pulse Strength [Finger] Respiratory Rate 16 Respiratory Effort / Characteristics Respiratory Depth Respiratory Pattern Blood Pressure 111/68 125/99 Blood Pressure [Right Arm] Blood Pressure Mean 78 105 Blood Pressure Mean [Right Arm] Pulse Oximetry 96 Oxygen Delivery Method Oxygen Flow Rate Sepsis Recent Fever Within 48 Hours Sepsis New/Unexplained Change in Mental Status Sepsis Action Taken by Nursing End-Tidal CO2 11/06/24 16:42 11/06/24 17:00 11/06/24 17:00 Temperature Temperature Source Pulse Rate 86 Pulse Rate [Finger] 84 Pulse Rate from SpO2 Sensor Pulse Rhythm Pulse Rhythm [Finger] Regular Pulse Strength [Finger] Normal Respiratory Rate 18 20 Respiratory Effort / Characteristics Non-Labored Respiratory Depth Normal Respiratory Pattern Regular Blood Pressure 125/99 114/91 Blood Pressure [Right Arm] 114/91 Blood Pressure Mean 105 98 Blood Pressure Mean [Right Arm] 98 Pulse Oximetry 94 95 Oxygen Delivery Method Nasal Cannula Nasal Cannula Oxygen Flow Rate 2 2 Sepsis Recent Fever Within 48 Hours Sepsis New/Unexplained Change in Mental Status Sepsis Action Taken by Nursing End-Tidal CO2 19 11/06/24 18:01 11/06/24 18:01 11/06/24 18:20 Temperature Temperature Source Pulse Rate 81 Pulse Rate [Finger] Pulse Rate from SpO2 Sensor Pulse Rhythm Pulse Rhythm [Finger] Pulse Strength [Finger] Respiratory Rate 18 Respiratory Effort / Characteristics Respiratory Depth Respiratory Pattern Blood Pressure 114/93 114/93 114/83 Blood Pressure [Right Arm] Blood Pressure Mean 109 109 89 Blood Pressure Mean [Right Arm] Pulse Oximetry 94 Oxygen Delivery Method Nasal Cannula Oxygen Flow Rate 2 Sepsis Recent Fever Within 48 Hours Sepsis New/Unexplained Change in Mental Status Sepsis Action Taken by Nursing End-Tidal CO2 28 11/06/24 18:20 11/06/24 19:03 Temperature Temperature Source Pulse Rate 79 Pulse Rate [Finger] Pulse Rate from SpO2 Sensor 79 Pulse Rhythm Pulse Rhythm [Finger] Pulse Strength [Finger] Respiratory Rate 23 Respiratory Effort / Characteristics Respiratory Depth Respiratory Pattern Blood Pressure 114/83 Blood Pressure [Right Arm] Blood Pressure Mean 89 Blood Pressure Mean [Right Arm] Pulse Oximetry 97 Oxygen Delivery Method Room Air Oxygen Flow Rate Sepsis Recent Fever Within 48 Hours Sepsis New/Unexplained Change in Mental Status Sepsis Action Taken by Nursing End-Tidal CO2 22 23 Laboratory Data Attestation: I reviewed the patient's lab results. 11/06/24 14:40 11/06/24 14:40 Lab Results 11/06/24 Range/Units 14:40 WBC 15.14 H (4.8-10.8) K/ul RBC 5.93 (4.70-6.10) M/uL Hgb 12.4 L (14.0-18.0) g/dl Hct 42.3 (42.0-52.0) % MCV 71.3 L (80.0-100.0) fL MCH 20.9 L (25.0-34.0) pg MCHC 29.3 L (32.0-36.0) g/dL RDW Std Deviation 50.9 H (36.4-46.3) fL RDW Coeff of Tristan 21.2 H (11.5-14.5) % Plt Count 239 (130-400) K/uL MPV 9.9 (9.4-12.4) fL Immature Gran % (Auto) 0.7 % Neut % (Auto) 85.3 % Lymph % (Auto) 7.3 % Terry % (Auto) 5.5 % Eos % (Auto) 0.9 % Baso % (Auto) 0.3 % Neut # (Auto) 12.92 H (1.40-6.50) K/uL Lymph # (Auto) 1.11 L (1.20-3.40) K/uL Terry # (Auto) 0.83 H (0.11-0.59) K/uL Eos # (Auto) 0.13 (0.00-0.50) K/uL Baso # (Auto) 0.04 (0.00-0.20) K/uL Immature Gran # (Auto) 0.11 (0.01-0.20) K/uL Anisocytosis Present Ovalocytes 1+ PT 11.7 (9.0-12.0) Seconds INR 1.1 (0.9-1.1) D-Dimer 380 (0-500) ug/L FEU Sodium 134 L (136-145) mmol/L Potassium 4.1 (3.5-5.1) mmol/L Chloride 99 (98-107) mmol/L Carbon Dioxide 26 (21-32) mmol/L Anion Gap 9 (3-11) BUN 10 (6-23) mg/dl Creatinine 0.79 (0.6-1.4) mg/dl Est Cr Clr Drug Dosing 123.1 ml/min eGFR 98.59 BUN/Creatinine Ratio 12.7 (10-20) Glucose 75 (70-99(Fasting)) mg/dl Calcium 8.8 (8.6-10.3) mg/dl Phosphorus 2.2 L (2.5-4.9) mg/dl Magnesium 1.8 (1.7-2.4) mg/dl Total Bilirubin 0.6 (0.2-1.0) mg/dl AST 48 H (13-39) U/L ALT 24 (7-52) U/L Alkaline Phosphatase 80 (34-104) U/L Troponin I High Sens 7.4 (0-20) pg/ml B-Natriuretic Peptide 14 (0-100) pg/ml Total Protein 7.4 (6.0-8.3) gm/dl Albumin 4.2 (3.4-5.0) gm/dl Globulin 3.2 (2.5-4.0) gm/dl Albumin/Globulin Ratio 1.3 (0.9-2) Lipase 25 (11-82) U/L TSH < 0.010 L (0.300-4.500) uIu/ml Free T4 1.34 (0.61-1.60) ng/dl Administered Medications Aspirin (Aspirin 81 Mg Ectab) 81 mg PO HS ARMANI Stop: 12/06/24 20:59 Last Admin: 11/06/24 21:14 Dose: 81 mg Documented By: [facility] Atorvastatin Calcium (Atorvastatin 20 Mg Tab) 20 mg PO HS ARMANI Stop: 12/06/24 20:59 Last Admin: 11/06/24 21:15 Dose: 20 mg Documented By: [facility] Baclofen (Baclofen 20 Mg Tab) 20 mg PO TID ARMANI Stop: 12/06/24 20:59 Last Admin: 11/06/24 21:15 Dose: 20 mg Documented By: [facility] Cyanocobalamin (Cyanocobalamin (B-12) 2,500 Mcg Tablet) 5,000 mcg PO QPM ARMANI Stop: 12/06/24 20:59 Last Admin: 11/06/24 21:41 Dose: 5,000 mcg Documented By: [facility] Hydrocortisone (Hydrocortisone 10 Mg Tab) 10 mg PO TID ARMANI Stop: 12/06/24 20:59 Last Admin: 11/06/24 21:15 Dose: 10 mg Documented By: [facility] Hydromorphone HCl (Hydromorphone Inj 1 Mg/Ml Syringe) 1 mg IV Q3H PRN PRN Reason: Severe Pain (7,8,9,10) on NRS Stop: 11/20/24 17:33 Last Admin: 11/07/24 01:25 Dose: 1 mg Documented By: [facility] Admin: 11/06/24 21:17 Dose: 1 mg Documented By: [facility] Admin: 11/06/24 17:54 Dose: 1 mg Documented By: SAMV Insulin Aspart (Insulin Aspart Per Unit Charge) 0 units SC ACHS ARMANI Stop: 12/06/24 20:59 Last Admin: 11/06/24 21:15 Dose: Not Given Documented By: [facility] Co-signed By: [facility] Insulin Glargine (Lantus Per Unit Charge) 12 units SQ BID ARMANI Stop: 12/06/24 20:59 Last Admin: 11/06/24 21:16 Dose: 12 units Documented By: ROQUE Co-signed By: [facility] Liothyronine Sodium (Liothyronine Sodium 5 Mcg Tab) 5 mcg PO QPM ARMANI Stop: 12/06/24 20:59 Last Admin: 11/06/24 21:41 Dose: 5 mcg Documented By: [facility] Mirtazapine (Mirtazapine Tab 15 Mg Tab) 7.5 mg PO HS ARMANI Stop: 12/06/24 20:59 Last Admin: 11/06/24 21:40 Dose: 7.5 mg Documented By: ROQUE Prednisone (Prednisone 1 Mg Tab) 1 mg PO TID ARMANI Stop: 12/06/24 20:59 Last Admin: 11/06/24 21:42 Dose: 1 mg Documented By: [facility] Pregabalin (Pregabalin 150 Mg Cap) 150 mg PO QID ARMANI Stop: 12/06/24 20:59 Last Admin: 11/06/24 21:14 Dose: 150 mg Documented By: ROQUE Sertraline HCl (Sertraline Hcl 100 Mg Tablet) 100 mg PO TID ARMANI Stop: 12/06/24 20:59 Last Admin: 11/06/24 21:42 Dose: 100 mg Documented By: [facility] Spironolactone (Spironolactone 25 Mg Tab) 25 mg PO BID ARMANI Stop: 12/06/24 20:59 Last Admin: 11/06/24 21:42 Dose: 25 mg Documented By: [facility] Discontinued Medications Dexamethasone (Dexamethasone Sod Inj 4 Mg/Ml Vial) 10 mg IV NOW STA Stop: 11/06/24 19:11 Last Admin: 11/06/24 19:42 Dose: 10 mg Documented By: PB Diazepam (Diazepam 5 Mg/Ml 10ml Vial) 2.5 mg IV NOW STA Stop: 11/06/24 16:31 Last Admin: 11/06/24 16:36 Dose: 2.5 mg Documented By: Acetaminophen (Ofirmev) 1,000 mg in 100 mls @ 400 mls/hr IV NOW STA Stop: 11/06/24 16:56 Last Infusion: 11/06/24 17:11 Dose: Infused Documented By: Admin: 11/06/24 16:56 Dose: 400 mls/hr Documented By: SAMY Ioversol (Optiray 320 125ml) 118 ml IV ONCE ONE Stop: 11/06/24 15:50 Last Admin: 11/06/24 15:52 Dose: 118 ml Documented By: SALOME Metaxalone (Metaxalone 800 Mg Tablet) 400 mg PO NOW STA Stop: 11/06/24 19:54 Last Admin: 11/06/24 20:15 Dose: 400 mg Documented By: PB Morphine Sulfate (Morphine Sulfate 10 Mg/Ml Carp/Vial) 6 mg IV NOW STA Stop: 11/06/24 16:48 Last Admin: 11/06/24 16:55 Dose: 6 mg Documented By: SAMY Oxycodone HCl (Oxycodone Hcl Ir 5 Mg Tab (Immediate Release)) 10 mg PO NOW STA Stop: 11/06/24 16:32 Last Admin: 11/06/24 18:34 Dose: Not Given Documented By: SAMY Imaging Data Radiologist's Impression: Chest CTA 11/06/24 14:51 CT PULMONARY ANGIOGRAM. HISTORY: Chest pain TECHNIQUE: Enhanced CT examination of the chest was performed using pulmonary embolism protocol. IV CONTRAST: 100 mL of OMNIPAQUE 300 COMPARISON: Chest radiograph from the same day. FINDINGS: PULMONARY ARTERIES: No filling defect identified to the segmental level. LYMPH NODES: No lymphadenopathy by size criteria. CARDIOVASCULAR: Mildly enlarged cardiac size. No right heart strain no pericardial effusion. No aortic aneurysm. There are coronary artery calcifications in keeping with coronary artery disease. MEDIASTINUM: No solid or cystic mediastinal masses. The esophagus is normally decompressed. LUNGS/PLEURA: The central tracheo-bronchial tree is patent. No mass or consolidation identified. Chronic interstitial changes of the lungs. Mild interstitial pulmonary edema. No pleural effusion or pneumothorax. No suspicious pulmonary nodules. BONES: No suspicious osseous lesions. Multilevel chronic appearing compression fractures of the thoracic spine with kyphoplasty changes of the mid thoracic spine vertebral body and posterior instrumented fusion. Chronic rib fractures bilaterally. VISUALIZED LOWER NECK: Unremarkable. VISUALIZED UPPER ABDOMEN: Hepatosplenomegaly. Cholecystectomy changes. IMPRESSION: No pulmonary embolism identified to the segmental level. Mild cardiomegaly without right heart strain. Mild interstitial pulm edema. No focal pulmonary consolidation. Eventuation of the right hemidiaphragm with associated right basilar atelectasis Electronically signed by Tello Jensen 11-06-2024 4:[address] 11/06/24 17:34 CT LUMBAR SPINE WITHOUT CONTRAST: HISTORY: PAIN TECHNIQUE: Noncontrast CT examination of the lumbar spine is performed. Coronal and sagittal reformats were created. COMPARISON: Lumbar spine CT April 19, 2015. FINDINGS: LUMBAR SPINE: Limited assessment due to severe osteopenia and extensive streak artifact arising from the thoracolumbar spine fusion hardware. Within this limitation: Redemonstrated posterior instrumented fusion at T11-S1 and L4-5 laminectomies. Redemonstration of compression changes of all levels of the included spinal vertebral bodies without significant change compared to the 2014 examination. No significant retropulsion is identified Again seen is L4 kyphoplasty. No definite new vertebral body height loss. There is no significant spondylolisthesis. Usual lumbar lordosis is preserved. Multilevel degenerative changes characterized by disc space loss, broad based disc bulge/herniations with endplate changes of the vertebral bodies with small marginal osteophytes as well as bilateral facet hypertrophy and thickening of the ligamentum flavum resulting in crowding of the subarticular recesses and narrowing of neural foramina worst at L4-S1. As before, in the lower lumbar spine at L4-S1 there are very large disc osteophyte complexes resulting in severe spinal canal and neural foraminal narrowing. And also in the upper lumbar spine there is diffuse tricompartmental spinal canal and neural foraminal narrowing, though poorly evaluated IVC filter IMPRESSION: Limited assessment due to severe osteopenia and extensive streak artifact arising from the thoracolumbar spine fusion hardware. Within this limitation: Redemonstrated posterior instrumented fusion at T11-S1 and L4-5 laminectomies. Redemonstration of compression changes of all levels of the included spinal vertebral bodies without significant change compared to the 2014 examination. No significant retropulsion is identified Also redemonstrated are advanced multilevel degenerative changes of the lumbar spine with very large disc osteophyte complex resulting in diffuse tricompartmental spinal canal stenosis and neural foraminal compromise Electronically signed by Tello Jensen 11-06-2024 6:43 PM Discharge Plan Visit Data Chief Complaint: Shortness of Breath/Dyspnea Stated Complaint: WEAKNESS, SOB ED Provider: Juni Omer Discharge Problem: Lumbar spinal stenosis, Acute exacerbation of chronic low back pain, Pleuritic chest pain Patient Disposition: Admitted As Inpatient Condition: Fair Discharge Instructions Interventions: ED Discharge Assessment Last Done: 11/06/24 20:11 Discharge Problem: Lumbar spinal stenosis Qualifiers: Neurogenic claudication status: unspecified Qualified Code(s): M48.061 - Spinal stenosis, lumbar region without neurogenic claudication
[2024-11-06 14:54] LABS: Hematocrit (blood only) 42.3 % (42.0-52.0); Hemoglobin 12.4 g/dl (14.0-18.0); Immature Granulocytes # (auto) 0.11 K/uL (0.01-0.20); Immature Granulocytes % (auto) 0.7 %; Mean Corpuscular Hemoglobin 20.9 pg (25.0-34.0); Mean Corpuscular Volume 71.3 fL (80.0-100.0); Platelet Count 239 K/uL (130-400); RDW Standard Deviation 50.9 fL (36.4-46.3); Red Blood Count 5.93 M/uL (4.70-6.10); White Blood Count 15.14 K/ul (4.8-10.8)
[2024-11-06 15:11] LABS: Anisocytosis Present; Ovalocytes 1+
[2024-11-06 15:12] LABS: Alanine Aminotransferase 24 U/L (7-52); Albumin Globulin Ratio 1.3 (0.9-2); Alkaline Phosphatase 80 U/L (34-104); Anion Gap 9 (3-11); Bilirubin,Total 0.6 mg/dl (0.2-1.0); Blood Urea Nitrogen 10 mg/dl (6-23); Calcium 8.8 mg/dl (8.6-10.3); Carbon Dioxide 26 mmol/L (21-32); Chloride 99 mmol/L (98-107); Creatinine Clr Calc Pharmacy 123.1 ml/min; Globulin 3.2 gm/dl (2.5-4.0); Glucose 75 mg/dl (70-99(Fasting)); Lipase 25 U/L (11-82); Magnesium 1.8 mg/dl (1.7-2.4); Potassium 4.1 mmol/L (3.5-5.1); Sodium 134 mmol/L (136-145); Total Protein 7.4 gm/dl (6.0-8.3)
[2024-11-06 15:25] LABS: INR 1.1 (0.9-1.1); Prothrombin Time 11.7 Seconds (9.0-12.0)
[2024-11-06 15:27] LABS: Thyroid Stimulating Hormone < 0.010 uIu/ml (0.300-4.500)
--- NOTE | 2024-11-06 15:38 | XRay Report ---
EXAM: X-ray chest one-view portable CLINICAL HISTORY: Chest pain PRIORS: 10/22/2023 TECHNIQUE: Frontal view chest FINDINGS: Surgical hardware throughout the thoracic spine noted. Lung volumes are diminished. No airspace consolidation, effusion or congestive changes. Heart size is normal. No pneumothorax. Trachea is patent. Osseous structures demonstrate no acute abnormality. No radiopaque foreign body. IMPRESSION: No plain film evidence of an acute cardiopulmonary process. Electronically signed by Nehal Fong 11-06-2024 3:37 PM
[2024-11-06] MEDS: OPTIRAY 320 125ml IV ONE (15:52)
--- NOTE | 2024-11-06 16:23 | CT Scan Report ---
CT PULMONARY ANGIOGRAM. HISTORY: Chest pain TECHNIQUE: Enhanced CT examination of the chest was performed using pulmonary embolism protocol. IV CONTRAST: 100 mL of OMNIPAQUE 300 COMPARISON: Chest radiograph from the same day. FINDINGS: PULMONARY ARTERIES: No filling defect identified to the segmental level. LYMPH NODES: No lymphadenopathy by size criteria. CARDIOVASCULAR: Mildly enlarged cardiac size. No right heart strain no pericardial effusion. No aortic aneurysm. There are coronary artery calcifications in keeping with coronary artery disease. MEDIASTINUM: No solid or cystic mediastinal masses. The esophagus is normally decompressed. LUNGS/PLEURA: The central tracheo-bronchial tree is patent. No mass or consolidation identified. Chronic interstitial changes of the lungs. Mild interstitial pulmonary edema. No pleural effusion or pneumothorax. No suspicious pulmonary nodules. BONES: No suspicious osseous lesions. Multilevel chronic appearing compression fractures of the thoracic spine with kyphoplasty changes of the mid thoracic spine vertebral body and posterior instrumented fusion. Chronic rib fractures bilaterally. VISUALIZED LOWER NECK: Unremarkable. VISUALIZED UPPER ABDOMEN: Hepatosplenomegaly. Cholecystectomy changes. IMPRESSION: No pulmonary embolism identified to the segmental level. Mild cardiomegaly without right heart strain. Mild interstitial pulm edema. No focal pulmonary consolidation. Eventuation of the right hemidiaphragm with associated right basilar atelectasis Electronically signed by Tello Jensen 11-06-2024 4:22 PM
[2024-11-06] MEDS: diazePAM 5 MG/ML 10ML VIAL IV STA (16:36)
[2024-11-06] MEDS: MoRPHine SULFATE 10 MG/ML CARP/VIAL IV STA (16:55)
[2024-11-06] MEDS: ACETAMINOPHEN 1,000 MG/100 ML VIAL IV STA (16:56)
--- NOTE | 2024-11-06 17:00 | History & Physical Report ---
Date of Service November 06, 2024 Assessment & Plan (1) Adrenal insufficiency: Plan: Acute on chronic back pain, lumbar stenosis, impaired functional mobility Operative history notes: T5-L3 fusion 2004, developed relapse of lower extremity neuropathic pain prompting L4-L5 fusion in 2006 and L5-S1 fusion in 2009 Wound infection 04/2005 with surgical exploration which was treated appropriately with antibiotics. 04/2005 did have revision of the thoracolumbar spine with exposure from upper thoracic spine down to the pelvis, revision laminectomy, T7-T11 discectomy bilaterally - Chronically on Bactrim suppression, 1 tab daily Chronic back pain at baseline on baclofen 20 mg 3 times daily, oxycodone 10 mg every 6 hours (pt reports takes 60mg but prescribed as 10mg q6h PRN), and on MiraLAX for opioid-induced constipation. UDS/CSA on file and had been on therapy long-term. Per PCP notes review not a good candidate for taper. Following transfer from CT patient reports that had increased back spasms and severe back pain. Patient yelling out frequently and pain reporting most severe in the low lumbar region. Denies any thoracic pain. Patient refused p.o. pain medication reports these are not effective and per patient his "I need astronomically high doses of IV medicine, 10 mg or more ". Did discuss that he will have significant receptor tolerance due to his chronic oxycodone use, and escalating narcotics are not only unlikely to be effective for his type of pain, but also with a high risk of respiratory suppression especially combination with his muscle relaxants and muscle relaxants which have been given. Continue multimodal pain control, Narcan on- call, with end-tidal CO2 monitoring. Patient reports significant 10/10 pain, is normotensive with a heart rate of approximately 80 at time of assessment He reports that he did have leg weakness for a day, has extensive back history as above. He is not able to undergo an MRI at this time. Given reports of severe acute pain and weakness CTL-spine was obtained prior to admission. He has no pain in the thoracic/cervical spine on exam. -Medications continued - CT reviewed. Similar to prior. Severe tricompartmental stenosis redemonstrated similar to prior. Dex 10 ordered. Pt is not able to tolerate an MRI currently. Chest pain Per initial ER report patient had some anterior chest pain with dyspnea. Patient reports that this has resolved and was more leg discomfort that brought him into the ER CTA chest: No PE. Mild cardiomegaly without right heart strain. Mild interstitial pulmonary edema. 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 Chronic microcytic anemia Type II DM Outpatient Ozempic, glipizide, metformin held Basal bolus insulin on admission - Basal insulin 12 units twice daily, CF 35, carb ratio 11 while admitted Goal BSG [id number] History of iron deficiency anemia Last ferritin 14, TSAT 9%. On ferrous gluconate daily. Patient had declined EGD/colonoscopy for colon cancer screening in 2021. Pending this to be rescheduled Myah with a microcytic anemia with MCV 71 on presentation to the ER. Oral iron continued, patient has a severe hives allergy to iron dextran Hypertension Normotensive on admission Continue spironolactone 25 mg twice daily Hyperlipidemia Continue statin. - Aspirin temporarily held pending eval of acute severe back pain. Depression Continue sertraline 100 mg 3 times daily, mirtazapine 7.5 mg at bedtime Complex TESS CPAP at at bedtime as needed DVT prophylaxis: Anticoagulated. 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 Presented for evaluation of chest pain worse on inspiration. Worsening LE edema L>R which is similar to past PE. Takes eliquis and has been compliant with this CTA with no evidence of PE +pulmonary edema trop normal, BNP and D-Dimer wnl leukoycytosis without left shift ON trying to transfer from CT bed writhin in pain and reported he has exacerbated back spasms. Per patient he reports that what actually brought him in was left leg discomfort, shooting pain down his leg with more weakness than typical. Denies chest pain at time of admitting assessment. Strength is similar, but very impaired at baseline. He reports his pain is typically tolerable although not resolved at his home oxycodone regimen, and has not had a pain flare in almost a year. He reports that after moving and shifting position on the CT table he is having spasms and 10/10 pain, yelling out in pain during exam and reports that when this has happened in the past has required high doses of IV narcotics. BP 114/91, pulse 84 at time of conversation. He is on 2 L of nasal cannula and has received 6 mg of morphine, 2.5 mg of diazepam in the ER and reports that this has not produced nearly any improvement in his discomfort. Has rods and screws S1-T5 with a pmh of osteomyelitis. Had a prior history of bactrim/staph infection Takes oxycodone 60mg spaced throughout the day. MOrphine has worked well, dilaudid has worked wel. "has to be IV" Took [facility] LEFT leg weakness, swelling. [place] similar to when he had a blood clot many years ago Left leg weaker than normal. Had been having increasing neuropathy pain, numbness, tingling 'like lightning' down the leg. Back ugery was done by Dr. Ekaterina Garrett ortho spine in [facility]. Has had 16 surgeries in 5 years due to osteoporosis 2/2 cushions and burst vertibrae in 2004. Most recent surgery in 2009. Currently follows with Dr. Jacob. Had previuosly seen pain management. Allergies Allergy/AdvReac Type Severity Reaction Status Date / Time iron dextran complex Allergy Severe HIVES Verified 09/19/24 15:08 cyclobenzaprine Allergy Intermediate N/V Verified 09/19/24 15:08 Home Medications Medication Instructions Recorded Confirmed Type aspirin 81 mg tablet,delayed 81 mg PO HS 06/17/18 11/06/24 History release Wheeled Walker #1 ea 03/24/23 09/19/24 Rx syringe with needle, safety 3 mL #100 ea 05/12/23 09/19/24 Rx 25 gauge x 1" (BD Integra Syringe) mecobalamin (vitamin B12) 1,000 5,000 mcg PO QPM 06/25/23 11/06/24 History mcg chewable tablet apixaban 5 mg tablet (Eliquis) 5 mg PO BID 90 days #180 tabs 10/14/23 11/06/24 Rx mirtazapine 15 mg tablet 7.5 mg PO HS 10/22/23 11/06/24 History acetaminophen 325 mg tablet 650 mg (2 x 325 mg) PO Q4H PRN 11/02/23 11/06/24 Rx fever or pain #0 tabs polyethylene glycol 3350 17 gram 17 g PO BID PRN Constipation 11/23/23 11/06/24 History oral powder packet (Miralax) baclofen 20 mg tablet 20 mg PO TID 90 days #270 tabs 12/22/23 11/06/24 Rx spironolactone 25 mg tablet 25 mg PO BID #180 tabs 12/22/23 11/06/24 Rx (Aldactone) blood sugar diagnostic (OneTouch #100 ea 04/18/24 09/19/24 Rx Ultra Test strips) blood-glucose meter (OneTouch #1 ea 04/18/24 09/19/24 Rx Ultra2 Meter) lancets 30 gauge (OneTouch #100 ea 04/18/24 09/19/24 Rx UltraSoft 2 Lancet) ferrous gluconate 324 mg (37.5 mg 324 mg PO .every other day #60 tabs 04/21/24 11/06/24 Rx iron) tablet metformin 500 mg tablet,extended 1,000 mg (2 x 500 mg) PO BID #360 07/08/24 11/06/24 Rx release 24 hr tabs liothyronine 5 mcg tablet 5 mcg PO QPM #90 tabs 08/03/24 11/06/24 Rx hydrocortisone 5 mg tablet 10 mg (2 x 5 mg) PO TID #180 tabs 08/16/24 11/06/24 Rx atorvastatin 20 mg tablet 20 mg PO HS #90 tabs 08/29/24 11/06/24 Rx prednisone 1 mg tablet 1 mg PO TID #270 tabs 08/29/24 11/06/24 Rx testosterone cypionate 200 mg/mL 150 mg (0.75 mL) IM Q7D 90 days 09/08/24 11/06/24 Rx intramuscular oil #9.75 mL glipizide 5 mg tablet 5 mg PO BID #120 tabs 09/12/24 11/06/24 Rx levothyroxine 200 mcg tablet 200 mcg PO DAILYBB #90 tabs 09/12/24 11/06/24 Rx pregabalin 150 mg capsule 150 mg PO QID 30 days #120 caps 09/19/24 11/06/24 Rx levothyroxine 50 mcg tablet 50 mcg PO DAILYBB #90 tabs 09/26/24 11/06/24 Rx sulfamethoxazole 400 1 tab PO DAILY #90 tabs 09/26/24 11/06/24 Rx mg-trimethoprim 80 mg tablet semaglutide 1 mg/dose (4 mg/3 mL) 1 mg (0.75 mL) subcut Q7D #3 mL 10/17/24 11/06/24 Rx subcutaneous pen injector sertraline 100 mg tablet 100 mg PO TID #180 tabs 10/17/24 11/06/24 Rx lansoprazole 30 mg capsule,delayed 30 mg PO QAM #90 caps 10/18/24 11/06/24 Rx release oxycodone 5 mg tablet 10 mg (2 x 5 mg) PO Q6H PRN pain 10/18/24 11/06/24 Rx #150 tabs Past Med/Surg History Problem List (Updated 07/26/24 @ 15:23 by Spike Madrid PA-C) Chronic anticoagulation On Eliquis for PE. 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 Hyperparathyroidism due to vitamin D deficiency Diabetes mellitus type 2 in obese HTN (hypertension), benign Hyperlipidemia Chronic pain disorder Lumbar myelopathy Lumbar spinal stenosis Generalized polyneuropathy Constipation due to opioid therapy Complex sleep apnea syndrome Nocturnal hypoxemia Osteoporosis Urinary incontinence GERD (gastroesophageal reflux disease) Impaired functional mobility and activity tolerance Lymphedema Restless leg syndrome Chronic venous insufficiency of lower extremity Medical History (Updated 07/26/24 @ 15:23 by Spike Madrid PA-C) Pulmonary embolism Diabetic ulcer of toe of right foot Chronic osteomyelitis of spine History of recurrent deep vein thrombosis IVC filter Fusion of spine, thoracolumbar region T5-S1 Nocturnal enuresis Micronutrients deficiency Deep vein thrombosis LT. ankle and RT upper arm>only taking aspirin currently History of anesthesia problem "remembers being aware and hearing talking and conversations during his spinal surgery at [facility]" Hyperlipidemia Hypertension History of COVID-19 05/2021, home test, not hosp; headache, weakness, fatigue, no appetite, fever, diarrhea>resolved. Sleep apnea hx cpap>bipap>now not using anything; new study scheduled w/dr dena in 06/2022 Osteomyelitis Spinal stenosis Osteoporosis Status post gamma knife treatment pituitary gland Back pain chronic Pituitary tumor hx Surgical History Hx of tonsillectomy Hx of colonoscopy History of lumbar fusion T5-S1 History of cholecystectomy Family History Sister Breast cancer Multiple sclerosis Father Colorectal cancer Myocardial infarction Brother Myocardial infarction Prostate cancer Pancreatitis Denies family history of Ovarian cancer Social History Smoking Status: Never smoker Second Hand Exposure: Yes (as a child-father smoked); Do You Dip or Chew Tobacco: No; Hx Alcohol Use: Yes Alcohol type: wine Hx Substance Use: No Preferred Language: Albanian Communication Ability: Effective Visual Impairment: No Limitations Hearing Ability: Normal Crystallographer Required: No Beliefs That Will Affect Care: None marital status: Current Living Situation: Spouse current occupational status: other current occupation: Disabled How many Children do You have: 1 Feels Safe at Home: Yes Childhood Exposure to Second-Hand Smoke: Yes Diet: regular caffeine: Yes during the past year weight has: decreased > 10 lbs Dental Care, Regularly: No Physical Activity Frequency: Does not Exercise Seatbelt Use: always Sunscreen Use: Yes Assistive Devices: Glasses and Walker Physical Exam Physical Exam: General: Patient yelling out periodically in pain, reporting lumbar pain and back spasms. HEENT: Atraumatic, normocephalic. VIsion and hearing grossly intact. Poor dentitis. Pulm: Diminished, grossly clear. -wheezes, -rales, -rhonchi. Symmetrical chest rise. No increased work of breathing. No respiratory distress. Cardiac: RRR, -mrg. Heart rate 84-86 at bedside assessment. Radial pulses intact and symmetrical. BP 114/91 Abdominal: Softly distended, hernia without tenderness or palpation. No rebound/guarding. Spine: No midline or paraspinal tenderness of the cervical or thoracic spine. Patient endorses mid/low lumbar midline and paraspinal tenderness with radiation more towards his left back. Symmetrical paraspinal muscle tone Extremities: Upper extremity: [employer] strength, elbow flexion/extension, shoulder flexion 5/5 without deficit or asymmetry. Sensation intact to soft touch. Lower extremity: Ankle dorsiflexion/plantarflexion 4 -/5 left, 4/5 right. Patient reports he has impaired strength and paresthesias at baseline, thinks his left leg strength may be worse than normal for him in the last day. Sensation of soft touch in the feet is intact bilaterally, but qualitatively decreased per patient. Hip flexion is unable to be assessed due to patient's back pain Results & Data Results & Data Vital Signs (Past 12 Hours) Vital Signs Temp Pulse Resp BP Pulse Ox O2 Del Method O2 Flow Rate 11/06/24 16:10 78 11/06/24 15:07 96 Nasal Cannula 2 11/06/24 15:00 86 L Room Air 11/06/24 14:45 94 Room Air 11/06/24 14:45 37.3 C 85 18 118/73 94 Room Air 11/06/24 14:37 85 18 94 Room Air PG Care Time/CCT Total # of Minutes Spent Total Time Spent with Patient: Total time spent is greater than 50% in coordination of care (as documented) at patient's floor/unit and/or counseling patient: Coding Level of Care Code 25348 INT INP/OBS CARE 3/75MIN Diagnoses Adrenal insufficiency E27.40 Central hypogonadism E23.0 Complex sleep apnea syndrome G47.31 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
[2024-11-06] MEDS ORDERED: HYDROmorphone INJ 0.5 MG/0.5 ML SYR IV PRN (17:34)
[2024-11-06] MEDS ORDERED: NALOXONE HCL 0.4 MG/1 ML VIAL/CARP IV PRN (17:34)
[2024-11-06] MEDS: HYDROmorphone INJ 1 MG/ML SYRINGE IV PRN (17:54)
--- NOTE | 2024-11-06 18:43 | CT Scan Report ---
CT LUMBAR SPINE WITHOUT CONTRAST: HISTORY: PAIN TECHNIQUE: Noncontrast CT examination of the lumbar spine is performed. Coronal and sagittal reformats were created. COMPARISON: Lumbar spine CT April 19, 2015. FINDINGS: LUMBAR SPINE: Limited assessment due to severe osteopenia and extensive streak artifact arising from the thoracolumbar spine fusion hardware. Within this limitation: Redemonstrated posterior instrumented fusion at T11-S1 and L4-5 laminectomies. Redemonstration of compression changes of all levels of the included spinal vertebral bodies without significant change compared to the 2014 examination. No significant retropulsion is identified Again seen is L4 kyphoplasty. No definite new vertebral body height loss. There is no significant spondylolisthesis. Usual lumbar lordosis is preserved. Multilevel degenerative changes characterized by disc space loss, broad based disc bulge/herniations with endplate changes of the vertebral bodies with small marginal osteophytes as well as bilateral facet hypertrophy and thickening of the ligamentum flavum resulting in crowding of the subarticular recesses and narrowing of neural foramina worst at L4-S1. As before, in the lower lumbar spine at L4-S1 there are very large disc osteophyte complexes resulting in severe spinal canal and neural foraminal narrowing. And also in the upper lumbar spine there is diffuse tricompartmental spinal canal and neural foraminal narrowing, though poorly evaluated IVC filter IMPRESSION: Limited assessment due to severe osteopenia and extensive streak artifact arising from the thoracolumbar spine fusion hardware. Within this limitation: Redemonstrated posterior instrumented fusion at T11-S1 and L4-5 laminectomies. Redemonstration of compression changes of all levels of the included spinal vertebral bodies without significant change compared to the 2014 examination. No significant retropulsion is identified Also redemonstrated are advanced multilevel degenerative changes of the lumbar spine with very large disc osteophyte complex resulting in diffuse tricompartmental spinal canal stenosis and neural foraminal compromise Electronically signed by Tello Jensen 11-06-2024 6:43 PM
[2024-11-06] MEDS: DEXAMETHASONE SOD INJ 4 MG/ML VIAL IV STA (19:42)
[2024-11-06] MEDS: METAXALONE 800 MG TABLET PO STA (20:15)
[2024-11-06] MEDS ORDERED: GLUCAGON FOR INJ 1 MG VIAL SQ PRN (20:46)
[2024-11-06] MEDS ORDERED: GLUCOSE 10 TAB/TUBE PO PRN (20:46)
[2024-11-06] MEDS ORDERED: CARBOHYDRATES FOR HYPOGLYCEMIA PO PRN (20:46)
[2024-11-06] MEDS ORDERED: GLUCOSE 40% GEL 15 GM TUBE PO PRN (20:46)
[2024-11-06] MEDS ORDERED: DEXTROSE 50% 50 ML SYRINGE IV PRN (20:46)
[2024-11-06] MEDS: PREGABALIN 150 MG CAP PO SCH (21:14)
[2024-11-06] MEDS: ASPIRIN 81 MG ECTAB PO SCH (21:14)
[2024-11-06] MEDS: BACLOFEN 20 MG TAB PO SCH (21:15)
[2024-11-06] MEDS: INSULIN ASPART PER UNIT CHARGE SC SCH (21:15)
[2024-11-06] MEDS: HYDROCORTISONE 10 MG TAB PO SCH (21:15)
[2024-11-06] MEDS: ATORVASTATIN 20 MG TAB PO SCH (21:15)
[2024-11-06] MEDS: LANTUS PER UNIT CHARGE SQ SCH (21:16)
[2024-11-06] MEDS: MIRTAZAPINE TAB 15 MG TAB PO SCH (21:40)
[2024-11-06] MEDS: LIOTHYRONINE SODIUM 5 MCG TAB PO SCH (21:41)
[2024-11-06] MEDS: CYANOCOBALAMIN (B-12) 2,500 MCG TABLET PO SCH (21:41)
[2024-11-06] MEDS: SERTRALINE HCL 100 MG TABLET PO SCH (21:42)
[2024-11-06] MEDS: SPIRONOLACTONE 25 MG TAB PO SCH (21:42)
[2024-11-07 06:15] LABS: Hematocrit (blood only) 38.7 % (42.0-52.0); Hemoglobin 11.8 g/dl (14.0-18.0); Mean Corpuscular Hemoglobin 21.2 pg (25.0-34.0); Mean Corpuscular Volume 69.5 fL (80.0-100.0); Platelet Count 224 K/uL (130-400); RDW Standard Deviation 48.6 fL (36.4-46.3); Red Blood Count 5.57 M/uL (4.70-6.10); White Blood Count 14.45 K/ul (4.8-10.8)
[2024-11-07] MEDS: LEVOTHYROXINE SODIUM 125 MCG TABLET PO SCH (06:18)
[2024-11-07 06:25] LABS: Anion Gap 10.0 (3-11); Blood Urea Nitrogen 12.0 mg/dl (6-23); Calcium 8.4 mg/dl (8.6-10.3); Carbon Dioxide 22.0 mmol/L (21-32); Chloride 98.0 mmol/L (98-107); Creatinine Clr Calc Pharmacy 130.0 ml/min; Glucose 156.0 mg/dl (70-99(Fasting)); Potassium 4.6 mmol/L (3.5-5.1); Sodium 130.0 mmol/L (136-145)
[2024-11-07 06:41] LABS: Anisocytosis Present; Immature Granulocytes # (auto) 0.14 K/uL (0.01-0.20); Immature Granulocytes % (auto) 1.0 %; Microcytosis Present; Polychromasia 1+
[2024-11-07] MEDS: SULFA/TRIMETH 400/80MG TAB PO SCH (09:15)
[2024-11-07] MEDS: FERROUS GLUCONATE 324 MG TAB PO SCH ×2 (09:17→20:33)
[2024-11-07 09:32] LABS: Iron 30.0 mcg/dl (35-175)
--- NOTE | 2024-11-07 11:13 | Orthopedic Consultation ---
Date of Consultation November 07, 2024 Assessment & Plan (1) Acute exacerbation of chronic low back pain: CAT scan is available for review. Demonstrates extensive fusion mass throughout the imaged levels T11 to the sacrum. Hardware is in place in appropriate alignment. There is evidence of spinal stenosis throughout the study. At this time would like to obtain an MRI of the lumbar spine for for further detail of the neurologic anatomy. I am not sure why he has had a marked change in his baseline. He denies any trauma fall or event. I will proceed with caution with any surgical intervention. Ultimately he would be best served returning to a tertiary care center if this becomes necessary. History of Present Illness Reason for Consultation: Back pain and bilateral leg weakness Attending Physician: Isaac Prescott MD History of Present Illness This is a 64-year-old male with extensive history of back surgery over the years. He presented yesterday with worsening left leg weakness. There is some modest right leg weakness. He has severe back spasms. He states this morning the spasms have improved somewhat with bedrest and IV narcotic medication. Allergies Allergy/AdvReac Type Severity Reaction Status Date / Time iron dextran complex Allergy Severe HIVES Verified 09/19/24 15:08 cyclobenzaprine Allergy Intermediate N/V Verified 09/19/24 15:08 Home Medications Medication Instructions Recorded Confirmed Type aspirin 81 mg tablet,delayed 81 mg PO HS 06/17/18 11/06/24 History release Wheeled Walker #1 ea 03/24/23 09/19/24 Rx syringe with needle, safety 3 mL #100 ea 05/12/23 09/19/24 Rx 25 gauge x 1" (BD Integra Syringe) mecobalamin (vitamin B12) 1,000 5,000 mcg PO QPM 06/25/23 11/06/24 History mcg chewable tablet apixaban 5 mg tablet (Eliquis) 5 mg PO BID 90 days #180 tabs 10/14/23 11/06/24 Rx mirtazapine 15 mg tablet 7.5 mg PO HS 10/22/23 11/06/24 History acetaminophen 325 mg tablet 650 mg (2 x 325 mg) PO Q4H PRN 11/02/23 11/06/24 Rx fever or pain #0 tabs polyethylene glycol 3350 17 gram 17 g PO BID PRN Constipation 11/23/23 11/06/24 History oral powder packet (Miralax) baclofen 20 mg tablet 20 mg PO TID 90 days #270 tabs 12/22/23 11/06/24 Rx spironolactone 25 mg tablet 25 mg PO BID #180 tabs 12/22/23 11/06/24 Rx (Aldactone) blood sugar diagnostic (OneTouch #100 ea 04/18/24 09/19/24 Rx Ultra Test strips) blood-glucose meter (OneTouch #1 ea 04/18/24 09/19/24 Rx Ultra2 Meter) lancets 30 gauge (OneTouch #100 ea 04/18/24 09/19/24 Rx UltraSoft 2 Lancet) ferrous gluconate 324 mg (37.5 mg 324 mg PO .every other day #60 tabs 04/21/24 11/06/24 Rx iron) tablet metformin 500 mg tablet,extended 1,000 mg (2 x 500 mg) PO BID #360 07/08/24 11/06/24 Rx release 24 hr tabs liothyronine 5 mcg tablet 5 mcg PO QPM #90 tabs 08/03/24 11/06/24 Rx hydrocortisone 5 mg tablet 10 mg (2 x 5 mg) PO TID #180 tabs 08/16/24 11/06/24 Rx atorvastatin 20 mg tablet 20 mg PO HS #90 tabs 08/29/24 11/06/24 Rx prednisone 1 mg tablet 1 mg PO TID #270 tabs 08/29/24 11/06/24 Rx testosterone cypionate 200 mg/mL 150 mg (0.75 mL) IM Q7D 90 days 09/08/24 11/06/24 Rx intramuscular oil #9.75 mL glipizide 5 mg tablet 5 mg PO BID #120 tabs 09/12/24 11/06/24 Rx levothyroxine 200 mcg tablet 200 mcg PO DAILYBB #90 tabs 09/12/24 11/06/24 Rx pregabalin 150 mg capsule 150 mg PO QID 30 days #120 caps 09/19/24 11/06/24 Rx levothyroxine 50 mcg tablet 50 mcg PO DAILYBB #90 tabs 09/26/24 11/06/24 Rx sulfamethoxazole 400 1 tab PO DAILY #90 tabs 09/26/24 11/06/24 Rx mg-trimethoprim 80 mg tablet semaglutide 1 mg/dose (4 mg/3 mL) 1 mg (0.75 mL) subcut Q7D #3 mL 10/17/24 11/06/24 Rx subcutaneous pen injector sertraline 100 mg tablet 100 mg PO TID #180 tabs 10/17/24 11/06/24 Rx lansoprazole 30 mg capsule,delayed 30 mg PO QAM #90 caps 10/18/24 11/06/24 Rx release oxycodone 5 mg tablet 10 mg (2 x 5 mg) PO Q6H PRN pain 10/18/24 11/06/24 Rx #150 tabs Patient History Medical History Pulmonary embolism Diabetic ulcer of toe of right foot Chronic osteomyelitis of spine History of recurrent deep vein thrombosis IVC filter Fusion of spine, thoracolumbar region T5-S1 Nocturnal enuresis Micronutrients deficiency Deep vein thrombosis LT. ankle and RT upper arm>only taking aspirin currently History of anesthesia problem "remembers being aware and hearing talking and conversations during his spinal surgery at [facility]" Hyperlipidemia Hypertension History of COVID-19 05/2021, home test, not hosp; headache, weakness, fatigue, no appetite, fever, diarrhea>resolved. Sleep apnea hx cpap>bipap>now not using anything; new study scheduled w/dr dean in 06/2022 Osteomyelitis Spinal stenosis Osteoporosis Status post gamma knife treatment pituitary gland Back pain chronic Pituitary tumor hx Surgical History Hx of tonsillectomy Hx of colonoscopy History of lumbar fusion T5-S1 History of cholecystectomy Family History Sister Breast cancer Multiple sclerosis Father Colorectal cancer Myocardial infarction Brother Myocardial infarction Prostate cancer Pancreatitis Denies family history of Ovarian cancer Social History Smoking Status: Never smoker Second Hand Exposure: Yes (as a child-father smoked); Do You Dip or Chew Tobacco: No; Hx Alcohol Use: No Hx Substance Use: No Preferred Language: Fijian Communication Ability: Effective Visual Impairment: No Limitations Hearing Ability: Normal 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 Beliefs That Will Affect Care: None marital status: Current Living Situation: Spouse current occupational status: other current occupation: Disabled How many Children do You have: 1 Feels Safe at Home: Yes Safety Concerns: Feels Safe At This Time Childhood Exposure to Second-Hand Smoke: Yes Diet: regular caffeine: Yes during the past year weight has: decreased > 10 lbs Dental Care, Regularly: No Physical Activity Frequency: Does not Exercise Seatbelt Use: always Sunscreen Use: Yes Assistive Devices: CPAP, Glasses and Walker Physical Exam Physical Exam: On exam he does demonstrate limitations to strength testing lower extremities. He seems to be in severe distress when trying to test his strength. Sensory appears to be intact. Results & Data Vital Signs (Past 12 Hours) Vital Signs Temp Pulse Pulse Resp BP Pulse Ox O2 Del Method 11/07/24 10:58 36.5 C 66 22 148/73 H 93 Room Air 11/07/24 07:11 36.7 C 72 22 134/75 93 Room Air 11/07/24 07:04 71 11/07/24 03:29 36.7 C 74 20 146/71 H 93 Room Air
[2024-11-07] MEDS ORDERED: methylPREDNISolone 10 mg/mL (For Ped Dose < 7mg) IV SCH (12:00)
[2024-11-07] MEDS ORDERED: GLUCAGON FOR INJ 1 MG VIAL SQ PRN (12:04)
[2024-11-07] MEDS ORDERED: GLUCOSE 10 TAB/TUBE PO PRN (12:04)
[2024-11-07] MEDS ORDERED: CARBOHYDRATES FOR HYPOGLYCEMIA PO PRN (12:04)
[2024-11-07] MEDS ORDERED: DEXTROSE 50% 50 ML SYRINGE IV PRN (12:04)
[2024-11-07] MEDS ORDERED: GLUCOSE 40% GEL 15 GM TUBE PO PRN (12:04)
--- NOTE | 2024-11-07 12:13 | Hospitalist Progress Note ---
Date of Service November 07, 2024 Assessment & Plan (1) Acute exacerbation of chronic low back pain: Plan: Appreciate orthopedic spine consultation and recommendations. The patient has had previous lumbar surgery at an outside institution. MRI scan is pending. Parenteral steroid therapy ordered along with muscle relaxant. Pain control measures. If MRI indicates surgery is necessary, then he will need to be transferred to a tertiary care center (2) Diabetes type 2, uncontrolled: Plan: ADA diet. Sliding scale coverage. Basal insulin therapy (3) Chest pain: Plan: Noncardiac. No acute EKG changes. No evidence of acute coronary syndrome (4) Adrenal insufficiency: Plan: Known panhypopituitarism and adrenal insufficiency. Continue chronic steroid therapy. (5) Morbid obesity with BMI of 40.0-44.9, adult: Plan: Significant weight loss recommended (6) SINA (iron deficiency anemia): Plan: Ferrous gluconate dosage uptitrated Plan To be determined by MRI results Admission and Anticipated Discharge Date Admission Date: November 06, 2024 Subjective Alert and oriented. He continues to complain of lumbar back pain. Orthopedic spine consultation noted. If MRI scan indicates the need for surgery he will need to be transferred to a tertiary care center. MRI scan is pending. Parenteral steroid therapy has been started in addition to his chronic oral hydrocortisone. Sliding scale coverage has been adjusted. Iron levels are low and ferrous gluconate increased to twice daily dosing. Unfortunately, his had to be escorted from the hospital last night by security due to behavior issues. Review of Systems 2 Review of Systems: Constitutionalno fever or chills ENTno blurred vision, no double vision, no epistaxis, no sore throat Respiratoryno cough, no wheezing, no shortness of breath Cardiacno palpitations, no chest pain, no syncope Lizzy nausea, vomiting, diarrhea, melena, hematochezia GUno urinary retention, no urinary incontinence, no dysuria, no hematuria Musculoskeletallumbar pain radiating to both legs Skinno bruising, no rashes, no pruritus Neurobilateral lower extremity weakness Psychdepressed affect Physical Exam 2 Physical Exam: General-alert and oriented x3, no fever. Obesity noted HEENT-head atraumatic and normocephalic, pupils equal and reactive to light, extraocular muscles intact Neck-no lymphadenopathy or thyromegaly, trachea midline Chest-clear to auscultation. No rales, wheezing or rhonchi Cardiac-regular rate and rhythm, normal S1 and S2 Abdomen-normal bowel sounds, no hepatosplenomegaly Extremities-tenderness over the lumbar spine to palpation. Mild chronic appearing bilateral lower extremity edema. Neuro-cranial nerves II through XII intact, bilateral lower extremity weakness. No focal deficits Psych-depressed affect Results & Data Results & Data Vital Signs (Past 12 Hours) Vital Signs Temp Pulse Pulse Resp BP Pulse Ox O2 Del Method 11/07/24 10:58 36.5 C 66 22 148/73 H 93 Room Air 11/07/24 07:11 36.7 C 72 22 134/75 93 Room Air 11/07/24 07:04 71 11/07/24 03:29 36.7 C 74 20 146/71 H 93 Room Air Laboratory Results 11/07/24 05:57 11/07/24 05:57 PG Care Time/CCT Total # of Minutes Spent Total Time Spent with Patient: Total time spent is greater than 50% in coordination of care (as documented) at patient's floor/unit and/or counseling patient: Coding Level of Care Code 92167 SUB INP/OBS CARE 3/50MIN Diagnoses Acute exacerbation of chronic low back pain M54.50; G89.29 Uncontrolled type 2 diabetes mellitus with hyperglycemia E11.65 Glycemic state: with hyperglycemia Chest pain R07.9 Adrenal insufficiency E27.40 Morbid obesity with BMI of 40.0-44.9, adult E66.01; Z68.41 SINA (iron deficiency anemia) D50.9 (2) Diabetes type 2, uncontrolled Glycemic state: with hyperglycemia Qualified Code(s): E11.65 - Type 2 diabetes mellitus with hyperglycemia
[2024-11-07] MEDS: INSULIN ASPART PER UNIT CHARGE SC ONE (12:24)
--- NOTE | 2024-11-07 13:31 | Electrocardiogram Report ---
Test Reason : Blood Pressure : */* mmHG Vent. Rate : 81 BPM Atrial Rate : 81 BPM P-R Int : 156 ms QRS Dur : 86 ms QT Int : 386 ms P-R-T Axes : -17 -11 -17 degrees QTcB Int : 448 ms Normal sinus rhythm possible Inferior infarct , age undetermined Abnormal ECG When compared with ECG of 22-Oct-2023 16:42, T wave inversion now evident in Inferior leads T wave inversion no longer evident in Anterior leads Confirmed by Jed Monroy ([id number]) on 11/07/2024 1:31:17 PM Referred By: REFERRED SELF Confirmed By: Jed Monroy
[2024-11-07] MEDS: INSULIN ASPART PER UNIT CHARGE SC SCH (16:57)
[2024-11-07] MEDS: HYDROmorphone INJ 2 MG/ML SYR/VIAL IV PRN (16:58)
[2024-11-07] MEDS: APIXABAN 5 MG TABLET PO SCH (20:31)
[2024-11-08 07:05] LABS: Hematocrit (blood only) 37.1 % (42.0-52.0); Hemoglobin 11.2 g/dl (14.0-18.0); Mean Corpuscular Hemoglobin 21.1 pg (25.0-34.0); Mean Corpuscular Volume 69.7 fL (80.0-100.0); RDW Standard Deviation 48.7 fL (36.4-46.3); Red Blood Count 5.32 M/uL (4.70-6.10); White Blood Count 13.12 K/ul (4.8-10.8)
[2024-11-08 07:11] LABS: Platelet Count 233 K/uL (130-400)
[2024-11-08 07:28] LABS: Anion Gap 8.0 (3-11); Blood Urea Nitrogen 12.0 mg/dl (6-23); Calcium 8.6 mg/dl (8.6-10.3); Carbon Dioxide 26.0 mmol/L (21-32); Chloride 96.0 mmol/L (98-107); Creatinine Clr Calc Pharmacy 136.2 ml/min; Glucose 181.0 mg/dl (70-99(Fasting)); Potassium 4.1 mmol/L (3.5-5.1); Sodium 130.0 mmol/L (136-145)
[2024-11-08 07:30] LABS: Anisocytosis Present; Immature Granulocytes # (auto) 0.18 K/uL (0.01-0.20); Immature Granulocytes % (auto) 1.4 %; Microcytosis Present; Ovalocytes 1+; Polychromasia 1+
--- NOTE | 2024-11-08 12:19 | Hospitalist Progress Note ---
Date of Service November 08, 2024 Assessment & Plan (1) Acute exacerbation of chronic low back pain: Plan: Appreciate orthopedic spine consultation and recommendations. The patient has had previous lumbar surgery at an outside institution. MRI scan remains pending. We need to determine if the existing lumbar hardware is MRI compatible. Parenteral steroid therapy appears to be helping with his symptoms. Continue pain control measures with as needed Dilaudid. If MRI indicates surgery is necessary, then he will need to be transferred to a tertiary care center (2) Diabetes type 2, uncontrolled: Plan: ADA diet. Sliding scale coverage. Basal insulin therapy uptitrated today, November 08, due to expected aggravation of glucose levels with parenteral steroid therapy (3) Chest pain: Plan: Noncardiac. No acute EKG changes. No evidence of acute coronary syndrome (4) Adrenal insufficiency: Plan: Known panhypopituitarism and adrenal insufficiency. Continue chronic steroid therapy. (5) Morbid obesity with BMI of 40.0-44.9, adult: Plan: Significant weight loss recommended (6) SINA (iron deficiency anemia): Plan: Ferrous gluconate dosage has been uptitrated Plan To be determined by MRI results Admission and Anticipated Discharge Date Admission Date: November 06, 2024 Subjective Alert and oriented. He is feeling slightly better since parenteral steroid therapy has been initiated. MRI scan remains pending. Question of compatibility of the lumbar hardware with MRI scanning is being investigated. Parenteral steroid therapy has aggravated his glucose levels as expected. Insulin glargine dosage uptitrated today, November 08. He takes opioids chronically and has a very high tolerance of the medication. Review of Systems 2 Review of Systems: Constitutionalno fever or chills ENTno blurred vision, no double vision, no epistaxis, no sore throat Respiratoryno cough, no wheezing, no shortness of breath Cardiacno palpitations, no chest pain, no syncope Lizzy nausea, vomiting, diarrhea, melena, hematochezia GUno urinary retention, no urinary incontinence, no dysuria, no hematuria Musculoskeletallumbar pain radiating to both legs Skinno bruising, no rashes, no pruritus Neurobilateral lower extremity weakness Psychdepressed affect Physical Exam 2 Physical Exam: General-alert and oriented x3, no fever. Obesity noted HEENT-head atraumatic and normocephalic, pupils equal and reactive to light, extraocular muscles intact Neck-no lymphadenopathy or thyromegaly, trachea midline Chest-clear to auscultation. No rales, wheezing or rhonchi Cardiac-regular rate and rhythm, normal S1 and S2 Abdomen-normal bowel sounds, no hepatosplenomegaly Extremities-tenderness over the lumbar spine to palpation. Mild chronic appearing bilateral lower extremity edema. Neuro-cranial nerves II through XII intact, bilateral lower extremity weakness. No focal deficits Psych-depressed affect Results & Data Results & Data Vital Signs (Past 12 Hours) Vital Signs Temp Pulse Pulse Resp BP Pulse Ox O2 Del Method 11/08/24 10:45 36.4 C L 75 18 136/71 93 Room Air 11/08/24 07:24 36.6 C 61 18 139/71 93 Room Air 11/08/24 07:11 71 11/08/24 03:12 36.7 C 64 18 145/66 H 92 Room Air Laboratory Results 11/08/24 06:33 11/08/24 06:33 PG Care Time/CCT Total # of Minutes Spent Total Time Spent with Patient: Total time spent is greater than 50% in coordination of care (as documented) at patient's floor/unit and/or counseling patient: Coding Level of Care Code 75395 SUB INP/OBS CARE 3/50MIN Diagnoses Acute exacerbation of chronic low back pain M54.50; G89.29 Uncontrolled type 2 diabetes mellitus with hyperglycemia E11.65 Glycemic state: with hyperglycemia Chest pain R07.9 Adrenal insufficiency E27.40 Morbid obesity with BMI of 40.0-44.9, adult E66.01; Z68.41 SINA (iron deficiency anemia) D50.9 (2) Diabetes type 2, uncontrolled Glycemic state: with hyperglycemia Qualified Code(s): E11.65 - Type 2 diabetes mellitus with hyperglycemia
[2024-11-08] MEDS: METHOCARBAMOL 500 MG TABLET PO PRN (14:52)
[2024-11-08] MEDS: LANTUS PER UNIT CHARGE SQ SCH (21:03)
[2024-11-09] MEDS: COUGH DROP (SUGAR FREE) LOZ 24 LOZ/1 BOX BUCCAL PRN (01:45)
[2024-11-09] MEDS: ACETAMINOPHEN 325 MG TAB PO PRN (01:45)
[2024-11-09 06:43] LABS: Anion Gap 6.0 (3-11); Calcium 8.9 mg/dl (8.6-10.3); Carbon Dioxide 27.0 mmol/L (21-32); Chloride 99.0 mmol/L (98-107); Potassium 4.4 mmol/L (3.5-5.1); Sodium 132.0 mmol/L (136-145)
[2024-11-09 06:48] LABS: Blood Urea Nitrogen 16.0 mg/dl (6-23); Creatinine Clr Calc Pharmacy 134.1 ml/min; Glucose 230.0 mg/dl (70-99(Fasting))
[2024-11-09 06:59] LABS: Anisocytosis Present; Hematocrit (blood only) 39.4 % (42.0-52.0); Hemoglobin 11.7 g/dl (14.0-18.0); Immature Granulocytes # (auto) 0.24 K/uL (0.01-0.20); Immature Granulocytes % (auto) 1.5 %; Mean Corpuscular Hemoglobin 20.9 pg (25.0-34.0); Mean Corpuscular Volume 70.4 fL (80.0-100.0); Ovalocytes 1+; Platelet Count 232 K/uL (130-400); RDW Standard Deviation 49.2 fL (36.4-46.3); Red Blood Count 5.60 M/uL (4.70-6.10); White Blood Count 15.60 K/ul (4.8-10.8)
--- NOTE | 2024-11-09 12:20 | Hospitalist Progress Note ---
Date of Service November 09, 2024 Assessment & Plan (1) Acute exacerbation of chronic low back pain: Plan: Appreciate orthopedic spine consultation and recommendations. The patient has had previous lumbar surgery at an outside institution. MRI scan remains pending. Parenteral steroid therapy appears to be helping with his symptoms. Continue pain control measures with as needed Dilaudid. If MRI indicates surgery is necessary, then he will need to be transferred to a tertiary care center (2) Diabetes type 2, uncontrolled: Plan: ADA diet. Sliding scale coverage. Basal insulin therapy uptitrated on November 08 due to expected aggravation of glucose levels with parenteral steroid therapy (3) Chest pain: Plan: Noncardiac. No acute EKG changes. No evidence of acute coronary syndrome (4) Adrenal insufficiency: Plan: Known panhypopituitarism and adrenal insufficiency. Continue chronic steroid therapy. (5) Morbid obesity with BMI of 40.0-44.9, adult: Plan: Significant weight loss recommended (6) SINA (iron deficiency anemia): Plan: Ferrous gluconate dosage has been uptitrated (7) Acute bronchitis: Plan: Probably viral. Portable chest x-ray ordered and pending. Scheduled DuoNebs. He already is on parenteral steroid therapy. Will follow Plan To be determined by MRI results and clinical course Admission and Anticipated Discharge Date Admission Date: November 06, 2024 Subjective The patient has developed a nonproductive cough and wheezing. Scheduled DuoNebs ordered along with a chest x-ray. OT and PT assessments requested. Symptoms are about the same. He remains on parenteral steroid therapy. Lumbar MRI scan has yet to be completed. Glucose is elevated due to parenteral steroid therapy. Review of Systems 2 Review of Systems: Constitutionalno fever or chills ENTno blurred vision, no double vision, no epistaxis, no sore throat Respiratorynonproductive cough and wheezing. No hemoptysis. Cardiacno palpitations, no chest pain, no syncope Lizzy nausea, vomiting, diarrhea, melena, hematochezia GUno urinary retention, no urinary incontinence, no dysuria, no hematuria Musculoskeletallumbar pain radiating to both legs Skinno bruising, no rashes, no pruritus Neurobilateral lower extremity weakness Psychdepressed affect Physical Exam 2 Physical Exam: General-alert and oriented x3, no fever. Obesity noted HEENT-head atraumatic and normocephalic, pupils equal and reactive to light, extraocular muscles intact Neck-no lymphadenopathy or thyromegaly, trachea midline Chest-bilateral expiratory wheezes. Dry cough. No inspiratory rales Cardiac-regular rate and rhythm, normal S1 and S2 Abdomen-normal bowel sounds, no hepatosplenomegaly Extremities-tenderness over the lumbar spine to palpation. Mild chronic appearing bilateral lower extremity edema. Neuro-cranial nerves II through XII intact, bilateral lower extremity weakness. No focal deficits Psych-depressed affect Results & Data Results & Data Vital Signs (Past 12 Hours) Vital Signs Temp Pulse Pulse Resp BP Pulse Ox O2 Del Method 11/09/24 11:20 36.7 C 71 18 149/68 H 94 Room Air 11/09/24 08:47 Room Air 11/09/24 07:33 36.4 C L 75 123/65 93 Room Air 11/09/24 07:18 54 L 11/09/24 03:43 36.6 C 68 20 153/77 H 94 Room Air Laboratory Results 11/09/24 05:20 11/09/24 05:20 PG Care Time/CCT Total # of Minutes Spent Total Time Spent with Patient: Total time spent is greater than 50% in coordination of care (as documented) at patient's floor/unit and/or counseling patient: Coding Level of Care Code 46263 SUB INP/OBS CARE 3/50MIN Diagnoses Acute exacerbation of chronic low back pain M54.50; G89.29 Uncontrolled type 2 diabetes mellitus with hyperglycemia E11.65 Glycemic state: with hyperglycemia Chest pain R07.9 Adrenal insufficiency E27.40 Morbid obesity with BMI of 40.0-44.9, adult E66.01; Z68.41 SINA (iron deficiency anemia) D50.9 Acute bronchitis J20.9 (2) Diabetes type 2, uncontrolled Glycemic state: with hyperglycemia Qualified Code(s): E11.65 - Type 2 diabetes mellitus with hyperglycemia
--- NOTE | 2024-11-09 13:05 | XRay Report ---
XR chest 1V portable CLINICAL HISTORY: cough, wheezing COMPARISON STUDY: 11/06/2024 FINDINGS: Stable cardiomegaly without pulmonary vascular congestion. Inspiration is shallow. There is stable minimal stranding in the lung bases, likely atelectasis or scarring. No new consolidation or pleural effusion. No pneumothorax. Stable thoracic spinal fusion. IMPRESSION: No acute findings seen. Inspiration is shallow, limiting the exam. ACT 112: Negative or not required by law. Electronically signed by: Jake Martinez M.D. 11/09/2024 1:04 PM
[2024-11-09] MEDS: ALBUT/IPRATROP 3MG/0.5MG NEB 3 ML VIAL NEB SCH (14:46)
[2024-11-09] MEDS: HYDROmorphone INJ 1 MG/ML SYRINGE IV STA (19:28)
[2024-11-10] MEDS: POLYETHYLENE (MIRALAX) 17 GM PACK PO PRN (08:56)
--- NOTE | 2024-11-10 11:55 | Hospitalist Progress Note ---
Date of Service November 10, 2024 Assessment & Plan (1) Acute exacerbation of chronic low back pain: Plan: Appreciate orthopedic spine consultation and recommendations. The patient has had previous lumbar surgery at an outside institution. MRI scan canceled due to expected artifact from previous instrumentation which will render interpretation useless. Parenteral steroid therapy appears to be helping with his symptoms. Continue pain control measures with as needed Dilaudid. (2) Diabetes type 2, uncontrolled: Plan: ADA diet. Sliding scale coverage. Glucose levels exacerbated by parenteral steroid therapy which was tapered down today, November 10. Insulin switched from glargine to NPH. (3) Chest pain: Plan: Noncardiac. No acute EKG changes. No evidence of acute coronary syndrome (4) Adrenal insufficiency: Plan: Known panhypopituitarism and adrenal insufficiency. Continue chronic steroid therapy. (5) Morbid obesity with BMI of 40.0-44.9, adult: Plan: Significant weight loss recommended (6) SINA (iron deficiency anemia): Plan: Ferrous gluconate dosage has been uptitrated (7) Acute bronchitis: Plan: Probably viral. Portable chest x-ray completed on November 09 is negative for any infiltrates or CHF. Continue scheduled DuoNebs. He already is on parenteral steroid therapy. Plan Hopeful discharge to home soon Admission and Anticipated Discharge Date Admission Date: November 06, 2024 Subjective Alert and oriented. Respiratory status has improved. Glucose is elevated due to parenteral steroid therapy which has been down titrated. Insulin glargine switched to insulin NPH. Chest x-ray obtained yesterday, November 09, is negative for acute infiltrates or CHF. Lumbar MRI has been canceled because it will undoubtedly produce significant artifact from previous surgical instrumentation which will render the films useless. Patient was encouraged to participate with OT and PT. I spoke to his , Teri, by phone today, November 10 Review of Systems 2 Review of Systems: Constitutionalno fever or chills ENTno blurred vision, no double vision, no epistaxis, no sore throat Respiratorynonproductive cough and wheezing. No hemoptysis. Cardiacno palpitations, no chest pain, no syncope Lizzy nausea, vomiting, diarrhea, melena, hematochezia GUno urinary retention, no urinary incontinence, no dysuria, no hematuria Musculoskeletallumbar pain radiating to both legs Skinno bruising, no rashes, no pruritus Neurobilateral lower extremity weakness Psychdepressed affect Physical Exam 2 Physical Exam: General-alert and oriented x3, no fever. Obesity noted HEENT-head atraumatic and normocephalic, pupils equal and reactive to light, extraocular muscles intact Neck-no lymphadenopathy or thyromegaly, trachea midline Chest-bilateral expiratory wheezes. Dry cough. No inspiratory rales Cardiac-regular rate and rhythm, normal S1 and S2 Abdomen-normal bowel sounds, no hepatosplenomegaly Extremities-tenderness over the lumbar spine to palpation. Mild chronic appearing bilateral lower extremity edema. Neuro-cranial nerves II through XII intact, bilateral lower extremity weakness. No focal deficits Psych-depressed affect Results & Data Results & Data Vital Signs (Past 12 Hours) Vital Signs Temp Pulse Pulse Resp BP Pulse Ox O2 Del Method 11/10/24 11:30 36.7 C 75 18 160/62 H 90 Room Air 11/10/24 10:39 Room Air 11/10/24 10:35 76 18 91 Room Air 11/10/24 08:08 77 16 90 Room Air 11/10/24 07:42 36.7 C 66 18 132/47 L 90 Room Air 11/10/24 07:34 69 11/10/24 02:41 36.5 C 70 20 125/62 90 Room Air Laboratory Results 11/09/24 05:20 11/09/24 05:20 PG Care Time/CCT Total # of Minutes Spent Total Time Spent with Patient: Total time spent is greater than 50% in coordination of care (as documented) at patient's floor/unit and/or counseling patient: Coding Level of Care Code 70600 SUB INP/OBS CARE 3/50MIN Diagnoses Acute exacerbation of chronic low back pain M54.50; G89.29 Uncontrolled type 2 diabetes mellitus with hyperglycemia E11.65 Glycemic state: with hyperglycemia Chest pain R07.9 Adrenal insufficiency E27.40 Morbid obesity with BMI of 40.0-44.9, adult E66.01; Z68.41 SINA (iron deficiency anemia) D50.9 Acute bronchitis J20.9 (2) Diabetes type 2, uncontrolled Glycemic state: with hyperglycemia Qualified Code(s): E11.65 - Type 2 diabetes mellitus with hyperglycemia
[2024-11-10] MEDS: ONDANSETRON INJ 2 MG/ML 2 ML VIAL IV PRN (12:39)
[2024-11-10] MEDS ORDERED: methylPREDNISolone 10 mg/mL (For Ped Dose < 7mg) IV SCH (14:00)
[2024-11-10] MEDS: INSULIN HUMAN NPH SC SCH (16:47)
[2024-11-11 06:35] LABS: Anion Gap 3.0 (3-11); Blood Urea Nitrogen 13.0 mg/dl (6-23); Calcium 9.0 mg/dl (8.6-10.3); Carbon Dioxide 35.0 mmol/L (21-32); Chloride 100.0 mmol/L (98-107); Creatinine Clr Calc Pharmacy 122.8 ml/min; Glucose 230.0 mg/dl (70-99(Fasting)); Potassium 5.0 mmol/L (3.5-5.1); Sodium 138.0 mmol/L (136-145)
[2024-11-11 07:19] LABS: Anisocytosis Present; Hematocrit (blood only) 40.5 % (42.0-52.0); Hemoglobin 11.8 g/dl (14.0-18.0); Immature Granulocytes # (auto) 0.37 K/uL (0.01-0.20); Immature Granulocytes % (auto) 1.8 %; Mean Corpuscular Hemoglobin 21.0 pg (25.0-34.0); Mean Corpuscular Volume 71.9 fL (80.0-100.0); Ovalocytes 1+; Platelet Count 248 K/uL (130-400); Polychromasia 1+; RDW Standard Deviation 53.0 fL (36.4-46.3); Red Blood Count 5.63 M/uL (4.70-6.10); White Blood Count 20.83 K/ul (4.8-10.8)
[2024-11-11] MEDS: INSULIN HUMAN NPH SC ONE (10:17)
--- NOTE | 2024-11-11 12:31 | Hospitalist Progress Note ---
Date of Service November 11, 2024 Assessment & Plan (1) Acute exacerbation of chronic low back pain: Plan: Appreciate orthopedic spine consultation and recommendations. The patient has had previous lumbar surgery at an outside institution. MRI scan canceled due to expected artifact from previous instrumentation which will render interpretation useless. He is currently on parenteral steroid therapy. Continue pain control measures with as needed Dilaudid. (2) Diabetes type 2, uncontrolled: Plan: ADA diet. Sliding scale coverage. Glucose levels exacerbated by parenteral steroid therapy. Dosage was tapered down on November 10. NPH insulin was uptitrated today, November 11 (3) Chest pain: Plan: Noncardiac. No acute EKG changes. No evidence of acute coronary syndrome (4) Adrenal insufficiency: Plan: Known panhypopituitarism and adrenal insufficiency. Continue chronic oral steroid therapy. (5) Morbid obesity with BMI of 40.0-44.9, adult: Plan: Significant weight loss recommended (6) SINA (iron deficiency anemia): Plan: Ferrous gluconate dosage has been uptitrated to twice daily dosing (7) Acute bronchitis: Plan: Probably viral. Portable chest x-ray completed on November 09 is negative for any infiltrates or CHF. Continue scheduled DuoNebs. He already is on parenteral steroid therapy. Improved overall Plan Hopeful discharge to rehab facility sometime early next week. Highly unlikely that he will be discharged this weekend Admission and Anticipated Discharge Date Admission Date: November 06, 2024 Subjective Not much change. NPH insulin uptitrated due to hyperglycemia brought on by parenteral steroid therapy. MRI scan of the back cannot be obtained because it will produce significant artifact from previous instrumentation. He remains on parenteral pain control measures and parenteral steroid therapy. Case discussed with orthopedic spine surgery today, November 11. He probably will need placement at discharge for continued rehab Review of Systems 2 Review of Systems: Constitutionalno fever or chills ENTno blurred vision, no double vision, no epistaxis, no sore throat Respiratorynonproductive cough and wheezing. No hemoptysis. Cardiacno palpitations, no chest pain, no syncope Lizzy nausea, vomiting, diarrhea, melena, hematochezia GUno urinary retention, no urinary incontinence, no dysuria, no hematuria Musculoskeletallumbar pain radiating to both legs Skinno bruising, no rashes, no pruritus Neurobilateral lower extremity weakness Psychdepressed affect Physical Exam 2 Physical Exam: General-alert and oriented x3, no fever. Obesity noted HEENT-head atraumatic and normocephalic, pupils equal and reactive to light, extraocular muscles intact Neck-no lymphadenopathy or thyromegaly, trachea midline Chest-bilateral expiratory wheezes. Dry cough. No inspiratory rales Cardiac-regular rate and rhythm, normal S1 and S2 Abdomen-normal bowel sounds, no hepatosplenomegaly Extremities-tenderness over the lumbar spine to palpation. Mild chronic appearing bilateral lower extremity edema. Neuro-cranial nerves II through XII intact, bilateral lower extremity weakness. No focal deficits Psych-depressed affect Results & Data Results & Data Vital Signs (Past 12 Hours) Vital Signs Temp Pulse Pulse Resp BP Pulse Ox O2 Del Method 11/11/24 11:17 73 20 94 Nasal Cannula 11/11/24 11:03 36.7 C 74 18 129/70 93 Nasal Cannula 11/11/24 08:41 Nasal Cannula 11/11/24 07:20 68 18 91 Nasal Cannula 11/11/24 07:03 66 11/11/24 06:55 36.5 C 68 18 136/75 93 Nasal Cannula 11/11/24 02:52 36.5 C 70 22 148/79 H 90 Nasal Cannula O2 Flow Rate 11/11/24 11:17 2 11/11/24 11:03 2 11/11/24 08:41 2 11/11/24 07:20 2 11/11/24 07:03 11/11/24 06:55 2 11/11/24 02:52 2 Laboratory Results 11/11/24 05:37 11/11/24 05:37 PG Care Time/CCT Total # of Minutes Spent Total Time Spent with Patient: Total time spent is greater than 50% in coordination of care (as documented) at patient's floor/unit and/or counseling patient: Coding Level of Care Code 27750 SUB INP/OBS CARE 3/50MIN Diagnoses Acute exacerbation of chronic low back pain M54.50; G89.29 Uncontrolled type 2 diabetes mellitus with hyperglycemia E11.65 Glycemic state: with hyperglycemia Chest pain R07.9 Adrenal insufficiency E27.40 Morbid obesity with BMI of 40.0-44.9, adult E66.01; Z68.41 SINA (iron deficiency anemia) D50.9 Acute bronchitis J20.9 (2) Diabetes type 2, uncontrolled Glycemic state: with hyperglycemia Qualified Code(s): E11.65 - Type 2 diabetes mellitus with hyperglycemia
[2024-11-11] MEDS: INSULIN HUMAN NPH SC SCH (16:49)
[2024-11-11] MEDS: HYDROmorphone INJ 2 MG/ML SYR/VIAL IV STA (18:14)
[2024-11-11] MEDS: HYDROmorphone INJ 2 MG/ML SYR/VIAL IV PRN (21:42)
[2024-11-11] MEDS: KETOROLAC TROMETHAMINE 15 MG/ML VIAL IV ONE (22:13)
[2024-11-11] MEDS: ACETAMINOPHEN 500 MG TAB PO SCH (22:30)
[2024-11-12 07:16] LABS: Anion Gap 4.0 (3-11); Blood Urea Nitrogen 15.0 mg/dl (6-23); Calcium 8.6 mg/dl (8.6-10.3); Carbon Dioxide 32.0 mmol/L (21-32); Chloride 93.0 mmol/L (98-107); Creatinine Clr Calc Pharmacy 151.0 ml/min; Glucose 138.0 mg/dl (70-99(Fasting)); Potassium 5.0 mmol/L (3.5-5.1); Sodium 129.0 mmol/L (136-145)
[2024-11-12 07:21] LABS: Hematocrit (blood only) 36.8 % (42.0-52.0); Hemoglobin 11.0 g/dl (14.0-18.0); Mean Corpuscular Hemoglobin 21.4 pg (25.0-34.0); Mean Corpuscular Volume 71.5 fL (80.0-100.0); Platelet Count 224 K/uL (130-400); RDW Standard Deviation 51.8 fL (36.4-46.3); Red Blood Count 5.15 M/uL (4.70-6.10); White Blood Count 25.25 K/ul (4.8-10.8)
[2024-11-12 07:33] LABS: Anisocytosis Present; Immature Granulocytes # (auto) 0.31 K/uL (0.01-0.20); Immature Granulocytes % (auto) 1.2 %; Microcytosis Present; Ovalocytes 1+; Polychromasia 1+
--- NOTE | 2024-11-12 09:54 | XRay Report ---
Clinical History: Hypoxia Technique: A frontal view of the chest was obtained Comparison is made to the prior examination dated 11/09/2024 Findings: There are new multifocal interstitial and nodular opacities bilaterally, likely due to pneumonia. The heart size is within normal limits. No pleural effusion or pneumothorax is seen. There is mild elevation of the right hemidiaphragm. There is an extensive thoracolumbar fusion, unchanged. There are old healed left rib fractures Impression: Suspected new bilateral pneumonia ACT 112: Positive. There are findings on this exam that require communication between the performing entity and the patient following Patient Test Result Information Act ([place] ACT 112) guidelines. Electronically signed by Austin Fisher 11-12-2024 09:54 AM
--- NOTE | 2024-11-12 11:34 | Hospitalist Progress Note ---
Date of Service November 12, 2024 Assessment & Plan (1) Acute exacerbation of chronic low back pain: Plan: Appreciate orthopedic spine consultation and recommendations. The patient has had previous lumbar surgery at an outside institution. MRI scan canceled due to expected artifact from previous instrumentation which will render interpretation useless. He is currently on parenteral steroid therapy. This probably accounts for his current leukocytosis. Continue pain control measures with as needed Dilaudid. (2) Hospital-acquired pneumonia: Plan: Possible, as seen on chest x-ray obtained today, November 12. No sputum production for culture. Zosyn has been started, day 1. He denies hemoptysis or pleuritic type pain (3) Diabetes type 2, uncontrolled: Plan: ADA diet. Sliding scale coverage. Glucose levels exacerbated by parenteral steroid therapy. Dosage was tapered down on November 10. NPH insulin was uptitrated on November 11 and glucose this morning, November 12, was only 138 (4) Chest pain: Plan: Noncardiac. Now resolved. No acute EKG changes. No evidence of acute coronary syndrome (5) Adrenal insufficiency: Plan: Known panhypopituitarism and adrenal insufficiency. Continue chronic oral steroid therapy. (6) Morbid obesity with BMI of 40.0-44.9, adult: Plan: Significant weight loss recommended (7) SINA (iron deficiency anemia): Plan: Ferrous gluconate dosage has been uptitrated to twice daily dosing (8) Acute bronchitis: Plan: He now may have hospital-acquired pneumonia per radiology as per their chest x- ray interpretation on November 12. Zosyn has been started. He remains on DuoNeb treatments and parenteral steroid therapy. Plan Hopeful discharge to rehab facility sometime this coming week. Case management pursuing placement at either [facility] or [facility]. Admission and Anticipated Discharge Date Admission Date: November 06, 2024 Subjective Alert and oriented. No distress. Oxygen requirements have increased. Examination has not changed however. Chest x-ray was repeated today, November 12, and was read by radiology as possible bilateral pneumonia. Leukocytosis is due to steroid therapy in my opinion. Nevertheless, Zosyn has been started, day 1. No sputum production for culture. No pleuritic pain. No hemoptysis. Lumbar radiculopathy symptoms persist. Orthopedic spine consultation appreciated. MRI scan is not feasible due to expected artifact from previous instrumentation placement which will render interpretation useless. Review of Systems 2 Review of Systems: Constitutionalno fever or chills ENTno blurred vision, no double vision, no epistaxis, no sore throat Respiratorynonproductive cough and wheezing. No hemoptysis. Cardiacno palpitations, no chest pain, no syncope Lizzy nausea, vomiting, diarrhea, melena, hematochezia GUno urinary retention, no urinary incontinence, no dysuria, no hematuria Musculoskeletallumbar pain radiating to both legs persists Skinno bruising, no rashes, no pruritus Neurobilateral lower extremity weakness Psychdepressed affect Physical Exam 2 Physical Exam: General-alert and oriented x3, no fever. Obesity noted HEENT-head atraumatic and normocephalic, pupils equal and reactive to light, extraocular muscles intact Neck-no lymphadenopathy or thyromegaly, trachea midline Chest-bilateral expiratory wheezes. Dry cough. No inspiratory rales Cardiac-regular rate and rhythm, normal S1 and S2 Abdomen-normal bowel sounds, no hepatosplenomegaly Extremities-tenderness over the lumbar spine to palpation. Mild chronic appearing bilateral lower extremity edema. Neuro-cranial nerves II through XII intact, bilateral lower extremity weakness. No focal deficits Psych-depressed affect Results & Data Results & Data Vital Signs (Past 12 Hours) Vital Signs Temp Pulse Resp BP Pulse Ox O2 Del Method O2 Flow Rate 11/12/24 10:38 89 18 92 Nasal Cannula 5 11/12/24 08:34 36.6 C 82 19 128/71 92 Nasal Cannula 5 11/12/24 08:00 Nasal Cannula 2 11/12/24 07:20 72 16 93 Nasal Cannula 2 11/12/24 02:48 36.6 C 76 20 155/66 H 90 Nasal Cannula Laboratory Results 11/12/24 05:36 11/12/24 05:36 PG Care Time/CCT Total # of Minutes Spent Total Time Spent with Patient: Total time spent is greater than 50% in coordination of care (as documented) at patient's floor/unit and/or counseling patient: Coding Level of Care Code 48133 SUB INP/OBS CARE 3/50MIN Diagnoses Acute exacerbation of chronic low back pain M54.50; G89.29 Hospital-acquired pneumonia J18.9; Y95 Uncontrolled type 2 diabetes mellitus with hyperglycemia E11.65 Glycemic state: with hyperglycemia Chest pain R07.9 Adrenal insufficiency E27.40 Morbid obesity with BMI of 40.0-44.9, adult E66.01; Z68.41 SINA (iron deficiency anemia) D50.9 Acute bronchitis J20.9 (3) Diabetes type 2, uncontrolled Glycemic state: with hyperglycemia Qualified Code(s): E11.65 - Type 2 diabetes mellitus with hyperglycemia
[2024-11-12] MEDS: OPTIRAY 320 125ml IV ONE (12:22)
[2024-11-12] MEDS: PIPERACILLIN/TAZOBACTAM 4.5 GM/100 ML BAG IV ONE (12:43)
--- NOTE | 2024-11-12 13:00 | CT Scan Report ---
Clinical history: Hypoxia. Elevated d-dimer Technique: Axial computed tomography images were obtained of the chest after the administration of intravenous contrast according to the CT angiogram protocol Comparison is made to the prior CT dated 11/06/2024 Findings: There is no definite sign of pulmonary embolism. There are extensive new multifocal groundglass infiltrates throughout both lungs, consistent with pneumonia. There is no pleural effusion or pneumothorax. There is no sign of pulmonary fibrosis or other diffuse interstitial process. No endobronchial lesion is seen There is no mediastinal, hilar, or axillary adenopathy. The thoracic aorta appears unremarkable with no sign of aneurysm or dissection. There is no pericardial effusion The gallbladder has been removed. There is unchanged elevation of the right hemidiaphragm. There is an unchanged extensive thoracolumbar fusion. There is no definite change in multiple vertebral compression fractures Impression: 1. No definite sign of pulmonary embolism 2. New bilateral pneumonia 3. Unchanged elevation of the right hemidiaphragm ACT 112: Positive. There are findings on this exam that require communication between the performing entity and the patient following Patient Test Result Information Act ([place] ACT 112) guidelines. Electronically signed by Austin Fisher 11-12-2024 12:59 PM
[2024-11-12] MEDS: PIPERACILLIN/TAZOBACTAM 4.5 GM/100 ML BAG IV SCH (16:26)
[2024-11-13 06:38] LABS: Hematocrit (blood only) 38.3 % (42.0-52.0); Hemoglobin 11.4 g/dl (14.0-18.0); Mean Corpuscular Hemoglobin 20.8 pg (25.0-34.0); Mean Corpuscular Volume 70.0 fL (80.0-100.0); Platelet Count 225 K/uL (130-400); RDW Standard Deviation 50.3 fL (36.4-46.3); Red Blood Count 5.47 M/uL (4.70-6.10); White Blood Count 17.23 K/ul (4.8-10.8)
[2024-11-13 06:43] LABS: Anisocytosis Present; Immature Granulocytes # (auto) 0.31 K/uL (0.01-0.20); Immature Granulocytes % (auto) 1.8 %; Ovalocytes 1+; Polychromasia 1+
[2024-11-13 06:47] LABS: Anion Gap 5.0 (3-11); Blood Urea Nitrogen 16.0 mg/dl (6-23); Calcium 8.7 mg/dl (8.6-10.3); Carbon Dioxide 31.0 mmol/L (21-32); Chloride 94.0 mmol/L (98-107); Creatinine Clr Calc Pharmacy 161.8 ml/min; Glucose 217.0 mg/dl (70-99(Fasting)); Potassium 4.9 mmol/L (3.5-5.1); Sodium 130.0 mmol/L (136-145)
--- NOTE | 2024-11-13 10:44 | Hospitalist Progress Note ---
Date of Service November 13, 2024 Assessment & Plan (1) Acute exacerbation of chronic low back pain: Plan: Appreciate orthopedic spine consultation and recommendations. The patient has had previous lumbar surgery at an outside institution. MRI scan canceled due to expected artifact from previous instrumentation which will render interpretation useless. He is currently on parenteral steroid therapy. This is contributing to his leukocytosis along with the suspected pneumonia. Continue pain control measures with as needed Dilaudid. He has a high narcotic tolerance due to chronic home narcotic use (2) Hospital-acquired pneumonia: Plan: Bilateral groundglass opacity seen on CT scan indicating probable viral etiology. No sputum production for culture. He remains on intravenous Zosyn however, day 2. He denies hemoptysis or pleuritic type pain (3) Acute respiratory failure with hypoxia: Plan: Supplemental oxygen per nasal cannula to maintain saturation greater than 90%. Wean off as tolerated. Continue to treat underlying pneumonia (4) Diabetes type 2, uncontrolled: Plan: ADA diet. Sliding scale coverage. Glucose levels exacerbated by parenteral steroid therapy. Steroid dosage was tapered down on November 10. NPH insulin was uptitrated on November 11 and glucose this morning, November 13, is 217. (5) Chest pain: Plan: Noncardiac. Now resolved. No acute EKG changes. No evidence of acute coronary syndrome (6) Adrenal insufficiency: Plan: Known panhypopituitarism and adrenal insufficiency. Continue chronic oral steroid therapy. (7) Morbid obesity with BMI of 40.0-44.9, adult: Plan: Significant weight loss recommended (8) SINA (iron deficiency anemia): Plan: Ferrous gluconate dosage has been uptitrated to twice daily dosing (9) Acute bronchitis: Plan: He appears now to have bilateral groundglass opacities seen on CT scan consistent with a viral pneumonia process. This appears to be hospital-acquired pneumonia. He remains on intravenous Zosyn as a precaution, day 2. Continue parenteral steroid therapy. He also will continue DuoNeb treatments. Plan Hopeful discharge to rehab facility sometime this coming week. Case management pursuing placement at either [facility] or [facility]. Admission and Anticipated Discharge Date Admission Date: November 06, 2024 Subjective Alert and oriented. No significant change. Potassium has improved slightly down to 4.9 off of spironolactone. Glucose 217 this morning, November 15. He remains on 5 L of oxygen per nasal cannula with 93% saturation. Zosyn, day 2 along with parenteral Solu-Medrol. Chest CTA is negative for PE but there is evidence of bilateral ground glass opacifications consistent with a viral pneumonia. MRI of the lumbar scan is not feasible due to previous surgery with instrumentation which will obviously produce artifact rendering the interpretation useless. Continue OT and PT while hospitalized. Occupational Therapy has already recommended IPR placement at discharge sometime this week Review of Systems 2 Review of Systems: Constitutionalno fever or chills ENTno blurred vision, no double vision, no epistaxis, no sore throat Respiratorynonproductive cough and wheezing. No hemoptysis. Cardiacno palpitations, no chest pain, no syncope Lizzy nausea, vomiting, diarrhea, melena, hematochezia GUno urinary retention, no urinary incontinence, no dysuria, no hematuria Musculoskeletallumbar pain radiating to both legs persists Skinno bruising, no rashes, no pruritus Neurobilateral lower extremity weakness Psychdepressed affect Physical Exam 2 Physical Exam: General-alert and oriented x3, no fever. Obesity noted HEENT-head atraumatic and normocephalic, pupils equal and reactive to light, extraocular muscles intact Neck-no lymphadenopathy or thyromegaly, trachea midline Chest-bilateral expiratory wheezes. Dry cough. No inspiratory rales Cardiac-regular rate and rhythm, normal S1 and S2 Abdomen-normal bowel sounds, no hepatosplenomegaly Extremities-tenderness over the lumbar spine to palpation. Mild chronic appearing bilateral lower extremity edema. Neuro-cranial nerves II through XII intact, bilateral lower extremity weakness. No focal deficits Psych-depressed affect Results & Data Results & Data Vital Signs (Past 12 Hours) Vital Signs Temp Pulse Pulse Resp BP Pulse Ox O2 Del Method 11/13/24 10:28 74 18 166/62 H 92 Nasal Cannula 11/13/24 09:59 72 16 91 Nasal Cannula 11/13/24 09:58 Nasal Cannula 11/13/24 07:32 65 11/13/24 07:26 36.6 C 64 18 118/59 L 93 Nasal Cannula 11/13/24 07:13 65 18 93 Nasal Cannula 11/13/24 04:00 36.4 C L 61 20 144/79 H 93 Nasal Cannula 11/12/24 23:25 36.5 C 73 20 146/77 H 96 High Flow Nasal Cannula O2 Flow Rate 11/13/24 10:28 4 11/13/24 09:59 4 11/13/24 09:58 4 11/13/24 07:32 11/13/24 07:26 5 11/13/24 07:13 5 11/13/24 04:00 5 11/12/24 23:25 7 Laboratory Results 11/13/24 05:32 11/13/24 05:32 PG Care Time/CCT Total # of Minutes Spent Total Time Spent with Patient: Total time spent is greater than 50% in coordination of care (as documented) at patient's floor/unit and/or counseling patient: Coding Level of Care Code 43866 SUB INP/OBS CARE 3/50MIN Diagnoses Acute exacerbation of chronic low back pain M54.50; G89.29 Hospital-acquired pneumonia J18.9; Y95 Acute respiratory failure with hypoxia J96.01 Uncontrolled type 2 diabetes mellitus with hyperglycemia E11.65 Glycemic state: with hyperglycemia Chest pain R07.9 Adrenal insufficiency E27.40 Morbid obesity with BMI of 40.0-44.9, adult E66.01; Z68.41 SINA (iron deficiency anemia) D50.9 Acute bronchitis J20.9 (4) Diabetes type 2, uncontrolled Glycemic state: with hyperglycemia Qualified Code(s): E11.65 - Type 2 diabetes mellitus with hyperglycemia
[2024-11-14 07:20] LABS: Hematocrit (blood only) 40.2 % (42.0-52.0); Hemoglobin 12.0 g/dl (14.0-18.0); Mean Corpuscular Hemoglobin 21.2 pg (25.0-34.0); Mean Corpuscular Volume 71.0 fL (80.0-100.0); Platelet Count 242 K/uL (130-400); RDW Standard Deviation 52.0 fL (36.4-46.3); Red Blood Count 5.66 M/uL (4.70-6.10); White Blood Count 18.03 K/ul (4.8-10.8)
[2024-11-14 07:35] LABS: Anion Gap 3.0 (3-11); Anisocytosis Present; Blood Urea Nitrogen 19.0 mg/dl (6-23); Calcium 9.0 mg/dl (8.6-10.3); Carbon Dioxide 35.0 mmol/L (21-32); Chloride 96.0 mmol/L (98-107); Creatinine Clr Calc Pharmacy 144.1 ml/min; Glucose 156.0 mg/dl (70-99(Fasting)); Immature Granulocytes # (auto) 0.53 K/uL (0.01-0.20); Immature Granulocytes % (auto) 2.9 %; Polychromasia 1+; Potassium 4.9 mmol/L (3.5-5.1); Sodium 134.0 mmol/L (136-145)
[2024-11-14] MEDS ORDERED: PHARMACY GLYCEMIC MGMT CONSULT PRN (08:06)
[2024-11-14] MEDS ORDERED: VANCOMYCIN CONSULT ACTIVE PRN (08:15)
[2024-11-14] MEDS: HYDROCORTISONE 10 MG TAB PO SCH (08:29)
[2024-11-14] MEDS: LANTUS PER UNIT CHARGE SC SCH ×2 (08:44→21:25)
[2024-11-14] MEDS: VANCOMYCIN HCL 2,500 MG in SODIUM CHLORIDE 0.9% 500 ML IV STA (09:21)
[2024-11-14] MEDS: HYDROmorphone INJ 2 MG/ML SYR/VIAL IV PRN (09:28)
--- NOTE | 2024-11-14 09:38 | Hospitalist Progress Note ---
Date of Service November 14, 2024 Assessment & Plan (1) Acute respiratory failure with hypoxia: (2) Hospital-acquired pneumonia: (3) Acute exacerbation of chronic low back pain: (4) Morbid obesity with BMI of 40.0-44.9, adult: (5) SINA (iron deficiency anemia): (6) Adrenal insufficiency: (7) Lymphedema associated with obesity: (8) Panhypopituitarism: (9) Diabetes type 2, uncontrolled: (10) Pulmonary embolism: (11) Hypertension: (12) Sleep apnea: (13) History of recurrent deep vein thrombosis: Plan 64-year-old male with past medical history of type 2 diabetes mellitus, iron deficiency anemia, history of DVT/PE on apixaban, hypertension, morbid obesity, chronic back pain with multiple back surgeries, history of osteomyelitis, panhypopituitarism with adrenal insufficiency presented to the hospital with acute on chronic pain with weakness and also chest pain worse on inspiration. #Acute hypoxic respiratory failure #Suspected hospital-acquired pneumonia Patient had CTA which showed no PE and bilateral groundglass opacities seen on CT scan. White count is elevated, likely secondary to IV steroids Continue IV Zosyn (day 3) Check MRSA Start IV vancomycin Patient denies any productive cough Patient's oxygen requirements are getting worse Check chest x-ray Check 2D echo Check BNP Trial of diuresis IV Lasix plus oral Aldactone x 1 dose If oxygen requirements worsen, will get pulmonology involved #Acute exacerbation of chronic back pain #Chronic constipation, likely secondary to opiates Patient was seen by spinal surgery team Patient has had previous lumbar surgery at outside institutions MRI scan was canceled due to artifact from previous instrumentation which will render interpretation useless PT/OT recommended rehab on discharge Stop IV steroids Continue pregabalin Tylenol 1000 mg p.o. 3 times daily Analgesia: Oxycodone 5 mg p.o. every 4 hours as needed for moderate pain, oxycodone 10 mg p.o. every 4 hours as needed for severe pain, Dilaudid 1 mg IV every 4 hours as needed for breakthrough pain Bowel management: Start MiraLAX twice daily, senna twice daily #Type 2 diabetes mellitus #Morbid obesity BMI is greater than 40 A1c 7.8 Blood sugars uncontrolled likely from IV steroids Pharmacy consult for glycemic management #History of panhypopituitarism with adrenal insufficiency #Hypothyroidism Outpatient software engineering specialist is Dr. Almazan she Patient on chronic steroid therapy Continue prednisone 1 mg p.o. 3 times daily Increase hydrocortisone to 20 mg p.o. 3 times daily for now since patient is under stressful conditions from hypoxic respiratory failure with pneumonia Continue PPI Continue levothyroxine 250 mcg p.o. daily along with liothyronine 5 mcg p.o. every afternoon #Iron deficiency anemia Hold oral iron supplementation given severe constipation Monitor H&H #History of recurrent DVT/PE CTA did not show evidence of PE Continue apixaban 5 mg p.o. twice daily CODE STATUS: DNR/DNI DVT prophylaxis: Patient on apixaban Discharge planning: Likely to SNF/acute rehab when medically stable likely in the next 3 to 4 days: Pending clinical improvement, improvement in oxygenation and pulmonology consult and recommendations Care plan discussed with patient, nursing staff Teri ([phone]) updated on the phone. Admission and Anticipated Discharge Date Admission Date: November 06, 2024 Subjective Patient seen and examined Patient states he does not use oxygen at home. He is currently requiring 13 L of oxygen via OxyMask He denies any chest pain or shortness of breath Denies any productive cough Patient states he does use Bactrim at home for suppressive therapy for his chronic back infection He denies any nausea, vomiting, diarrhea/abdominal pain. Patient states he has not had a bowel movement in 7 days He tells me he is on spironolactone at home for high blood pressure Physical Exam Physical Exam: General: No acute distress Psych: Awake and alert, oriented to place and person HEENT: Anicteric sclera, moist oral mucosa CVS: Regular rate and rhythm Lungs: Bilateral air entry with decreased breath sounds at the bases, no wheezing noted Abdomen: Soft, nontender, no rebound, no guarding Ext: Pitting lower extremity edema noted with CASSANDRA stockings in place, no calf tenderness Neuro: No focal motor deficits noted Results & Data Results & Data Vital Signs (Past 12 Hours) Vital Signs Temp Pulse Pulse Resp BP BP Pulse Ox 11/14/24 08:15 36.4 C L 71 18 110/49 L 170/64 H 90 11/14/24 07:39 63 11/14/24 07:17 60 20 88 L 11/14/24 03:06 36.4 C L 60 20 129/58 L 89 L 11/13/24 23:05 36.6 C 66 18 115/59 L 90 11/13/24 21:42 77 O2 Del Method O2 Flow Rate 11/14/24 08:15 Nasal Cannula 13 11/14/24 07:39 11/14/24 07:17 Nasal Cannula 13 11/14/24 03:06 High Flow Nasal Cannula 9.0 11/13/24 23:05 Nasal Cannula 9.0 11/13/24 21:42 Laboratory Results Laboratory Results - last 24 hr 11/13/24 11/13/24 11/13/24 11:38 11:39 16:05 WBC RBC Hgb Hct MCV MCH MCHC RDW Std Deviation RDW Coeff of Tristan Plt Count MPV Immature Gran % (Auto) Neut % (Auto) Lymph % (Auto) [place] % (Auto) Eos % (Auto) Baso % (Auto) Neut # (Auto) Lymph # (Auto) [place] # (Auto) Eos # (Auto) Baso # (Auto) Immature Gran # (Auto) Absolute Nucleated RBC Nucleated RBC % (auto) Polychromasia Anisocytosis Sodium Potassium Chloride Carbon Dioxide Anion Gap BUN Creatinine Est Cr Clr Drug Dosing eGFR BUN/Creatinine Ratio Glucose POC Glucose 305 H* 279 H 312 H* Calcium Nasal Screen MRSA (PCR) 11/13/24 11/13/24 11/14/24 16:06 20:51 05:58 WBC 18.03 H RBC 5.66 Hgb 12.0 L Hct 40.2 L MCV 71.0 L MCH 21.2 L MCHC 29.9 L RDW Std Deviation 52.0 H RDW Coeff of Tristan 21.5 H Plt Count 242 MPV 10.5 Immature Gran % (Auto) 2.9 Neut % (Auto) 88.5 Lymph % (Auto) 3.4 [place] % (Auto) 5.0 Eos % (Auto) 0.0 Baso % (Auto) 0.2 Neut # (Auto) 15.94 H Lymph # (Auto) 0.62 L [place] # (Auto) 0.91 H Eos # (Auto) 0.00 Baso # (Auto) 0.03 Immature Gran # (Auto) 0.53 H Absolute Nucleated RBC 0.04 Nucleated RBC % (auto) 0.2 Polychromasia 1+ Anisocytosis Present Sodium 134 L Potassium 4.9 Chloride 96 L Carbon Dioxide 35 H Anion Gap 3 BUN 19 Creatinine 0.67 Est Cr Clr Drug Dosing 144.1 eGFR 103.62 BUN/Creatinine Ratio 28.4 H Glucose 156 H POC Glucose 293 H 283 H Calcium 9.0 Nasal Screen MRSA (PCR) 11/14/24 11/14/24 07:24 08:34 WBC RBC Hgb Hct MCV MCH MCHC RDW Std Deviation RDW Coeff of Tristan Plt Count MPV Immature Gran % (Auto) Neut % (Auto) Lymph % (Auto) [place] % (Auto) Eos % (Auto) Baso % (Auto) Neut # (Auto) Lymph # (Auto) [place] # (Auto) Eos # (Auto) Baso # (Auto) Immature Gran # (Auto) Absolute Nucleated RBC Nucleated RBC % (auto) Polychromasia Anisocytosis Sodium Potassium Chloride Carbon Dioxide Anion Gap BUN Creatinine Est Cr Clr Drug Dosing eGFR BUN/Creatinine Ratio Glucose POC Glucose 176 H Calcium Nasal Screen MRSA (PCR) Pending PG Care Time/CCT Total # of Minutes Spent Total Time Spent with Patient: Total time spent is greater than 50% in coordination of care (as documented) at patient's floor/unit and/or counseling patient: Coding Level of Care Code 48737 SUB INP/OBS CARE 3/50MIN Diagnoses Acute respiratory failure with hypoxia J96.01 Hospital-acquired pneumonia J18.9; Y95 Acute exacerbation of chronic low back pain M54.50; G89.29 Morbid obesity with BMI of 40.0-44.9, adult E66.01; Z68.41 SINA (iron deficiency anemia) D50.9 Adrenal insufficiency E27.40 Lymphedema associated with obesity I89.0; E66.9 Panhypopituitarism E23.0 Uncontrolled type 2 diabetes mellitus with hyperglycemia E11.65 Glycemic state: with hyperglycemia Pulmonary embolism I26.99 Acute cor pulmonale presence: unspecified Chronicity: acute Pulmonary embolism type: unspecified Hypertension I10 Sleep apnea G47.30 History of recurrent deep vein thrombosis Z86.718 (9) Diabetes type 2, uncontrolled Glycemic state: with hyperglycemia Qualified Code(s): E11.65 - Type 2 diabetes mellitus with hyperglycemia (10) Pulmonary embolism Acute cor pulmonale presence: unspecified Chronicity: acute Pulmonary embolism type: unspecified Qualified Code(s): I26.99 - Other pulmonary embolism without acute cor pulmonale
[2024-11-14] MEDS: MAGNESIUM HYDROXIDE SUSP 30 ML UDC PO ONE (10:44)
[2024-11-14] MEDS: SENNA 8.6 MG TAB PO SCH (10:45)
[2024-11-14] MEDS: POLYETHYLENE (MIRALAX) 17 GM PACK PO SCH (10:45)
[2024-11-14] MEDS: FUROSEMIDE 40 MG/4 ML VIAL IV ONE (10:45)
[2024-11-14] MEDS: SPIRONOLACTONE 25 MG TAB PO ONE (10:46)
[2024-11-14 10:53] LABS: Hemoglobin A1C 7.8 % (4.5-5.6)
--- NOTE | 2024-11-14 11:28 | XRay Report ---
XR chest 1V portable CLINICAL HISTORY: sob ?CHF COMPARISON STUDY: 11/12/2024 FINDINGS: Stable thoracic metallic fusion. Stable mild cardiomegaly without pulmonary vascular conges tion. Inspiration is shallow. There is stable diffuse reticular and faint patchy pulmonary opacities. No lobar consolidation, pleural effusion, or pneumothorax. IMPRESSION: Stable diffuse faint pulmonary opacities. ACT 112: Negative or not required by law. Electronically signed by: Jake Martinez M.D. 11/14/2024 11:27 AM
--- NOTE | 2024-11-14 12:46 | Pulmonary Consultation ---
Date of Consultation November 14, 2024 Assessment & Plan (1) Acute respiratory failure with hypoxia: (2) Hospital-acquired pneumonia: (3) Complex sleep apnea syndrome: (4) Morbid obesity with BMI of 40.0-44.9, adult: (5) Pulmonary embolism: Acute cor pulmonale presence: unspecified Chronicity: acute P ulmonary embolism type: unspecified Qualified Code(s): I26.99 - Other pulmonary embolism without acute cor pulmonale Plan CT chest 11/12/2024 personally reviewed: Diffuse patchy groundglass opacities appreciated bilaterally Elevated right hemidiaphragm No significant mediastinal lymphadenopathy --Acute hypoxic respiratory failure Multifactorial HFpEF with possible multilobar pneumonia Respiratory BioFire negative for everything on 11/14/2024 Nasal MRSA negative BNP 204 Etiology for diffuse groundglass opacities includes infectious versus noninfectious Infections could include acute viral infection, PJP especially in somebody who is taking high-dose steroids as well as bacterial infection Noninfectious includes acute eosinophilic pneumonia, NSIP as well as pulmonary edema --Severe complex TESS Polysomnography 06/10/2022: EPAP min-max: 8-15, minimum pressure support 4, maximum pressure support 17, maximum pressure 25 Recommend to continue with home ASV -- History of pulmonary emboli On Eliquis --Panhypopituitarism On prednisone 1 mg 3 times daily, hydrocortisone 10 mg 3 times daily testosterone 150 mg every 7 days IM Technically patient is taking equivalents of 10 mg of prednisone on a daily basis Plan: In/out: -6 L since coming to the hospital Patient's BNP is 204, on presentation was only 14 Recommend the following for the patient's 1) for the active wheezing and rhonchi, budesonide 0.5 as well as formoterol nebulized twice daily 2) 7% hypertonic saline nebulized twice a day along with Mucinex 1200 mg twice daily 3) ASV nightly with the following setting EPAP min-max: 8-15, minimum pressure support 4, maximum pressure support 17, maximum pressure 25, if you do not have the capacity for ASV then would recommend 12/8 BiPAP nightly 4) 2D echo 5) procalcitonin 6) keep O2 saturation between 90-92% Given that the patient is already on Bactrim and nasal MRSA is negative okay to discontinue vancomycin Patient is on chronic steroids which is equivalent to approximately 10 mg on a daily basis, on top of that he is taking Bactrim on a daily basis. Probability of patient having PJP is there but low Please make note patient was disrespectful during the interrogation to me as well as Hermelindo, shouting and raising voice stating that he knows his body better than anyone else and does not want changes to his regimen from us. I tried my best to listen and to reason with him The recommendation stands as above. Will not personally see the patient moving forward If there are any questions to discuss on the phone then I will be more than happy to do so I spent more than 75 minutes looking in the chart, images, discussing the plan of care with the patient, RN as well as primary team Please note the above document was generated using voice recognition software. It may contain grammatical, syntax or spelling errors.Any formal questions or concerns about the content, text or information contained within the body of this dictation should be directly addressed to the provider for clarification. History of Present Illness Attending Physician: Adan Pang MD History of Present Illness 64-year-old male admitted to the hospital for chest pain and shortness of breath Past medical history: Pulmonary emboli on Eliquis, hypertension, dyslipidemia, depression, sleep apnea, panhypopituitarism, chronic osteomyelitis of the back on Bactrim daily Pulmonary positive for abnormal chest CT and hypoxia At the time of examination patient was on high flow 90%, 30 L, saturating 98%, and went down to 70 L Patient has been coughing but is not able to bring anything up On asking whether he has chest congestion he denies. Has been complaining of chronic low back pain. He says he is compliant with his Bactrim which he takes for chronic osteomyelitis of the back Does have a history of complex sleep apnea but has not been using a CPAP for almost 8 months because he feels that he has not needed Denies any dysuria, no diarrhea No unusual headache or blurry vision Has been using incentive spirometry while in the hospital Please make note patient was very disrespectful during the encounter. He repeatedly said that every doctor who comes in is making a new diagnosis and he knows what is going on with his body and would not like to have any change in his regimen. Social history: Lifetime non-smoker Allergies Allergy/AdvReac Type Severity Reaction Status Date / Time iron dextran complex Allergy Severe HIVES Verified 09/19/24 15:08 cyclobenzaprine Allergy Intermediate N/V Verified 09/19/24 15:08 Home Medications Medication Instructions Recorded Confirmed Type aspirin 81 mg tablet,delayed 81 mg PO HS 06/17/18 11/06/24 History release Wheeled Walker #1 ea 03/24/23 09/19/24 Rx syringe with needle, safety 3 mL #100 ea 05/12/23 09/19/24 Rx 25 gauge x 1" (BD Integra Syringe) mecobalamin (vitamin B12) 1,000 5,000 mcg PO QPM 06/25/23 11/06/24 History mcg chewable tablet apixaban 5 mg tablet (Eliquis) 5 mg PO BID 90 days #180 tabs 10/14/23 11/06/24 Rx mirtazapine 15 mg tablet 7.5 mg PO HS 10/22/23 11/06/24 History acetaminophen 325 mg tablet 650 mg (2 x 325 mg) PO Q4H PRN 11/02/23 11/06/24 Rx fever or pain #0 tabs polyethylene glycol 3350 17 gram 17 g PO BID PRN Constipation 11/23/23 11/06/24 History oral powder packet (Miralax) baclofen 20 mg tablet 20 mg PO TID 90 days #270 tabs 12/22/23 11/06/24 Rx spironolactone 25 mg tablet 25 mg PO BID #180 tabs 12/22/23 11/06/24 Rx (Aldactone) blood sugar diagnostic (OneTouch #100 ea 04/18/24 09/19/24 Rx Ultra Test strips) blood-glucose meter (OneTouch #1 ea 04/18/24 09/19/24 Rx Ultra2 Meter) lancets 30 gauge (OneTouch #100 ea 04/18/24 09/19/24 Rx UltraSoft 2 Lancet) ferrous gluconate 324 mg (37.5 mg 324 mg PO .every other day #60 tabs 04/21/24 11/06/24 Rx iron) tablet metformin 500 mg tablet,extended 1,000 mg (2 x 500 mg) PO BID #360 07/08/24 11/06/24 Rx release 24 hr tabs liothyronine 5 mcg tablet 5 mcg PO QPM #90 tabs 08/03/24 11/06/24 Rx hydrocortisone 5 mg tablet 10 mg (2 x 5 mg) PO TID #180 tabs 08/16/24 11/06/24 Rx atorvastatin 20 mg tablet 20 mg PO HS #90 tabs 08/29/24 11/06/24 Rx prednisone 1 mg tablet 1 mg PO TID #270 tabs 08/29/24 11/06/24 Rx testosterone cypionate 200 mg/mL 150 mg (0.75 mL) IM Q7D 90 days 09/08/24 11/06/24 Rx intramuscular oil #9.75 mL glipizide 5 mg tablet 5 mg PO BID #120 tabs 09/12/24 11/06/24 Rx levothyroxine 200 mcg tablet 200 mcg PO DAILYBB #90 tabs 09/12/24 11/06/24 Rx pregabalin 150 mg capsule 150 mg PO QID 30 days #120 caps 09/19/24 11/06/24 Rx levothyroxine 50 mcg tablet 50 mcg PO DAILYBB #90 tabs 09/26/24 11/06/24 Rx sulfamethoxazole 400 1 tab PO DAILY #90 tabs 09/26/24 11/06/24 Rx mg-trimethoprim 80 mg tablet semaglutide 1 mg/dose (4 mg/3 mL) 1 mg (0.75 mL) subcut Q7D #3 mL 10/17/24 11/06/24 Rx subcutaneous pen injector sertraline 100 mg tablet 100 mg PO TID #180 tabs 10/17/24 11/06/24 Rx lansoprazole 30 mg capsule,delayed 30 mg PO QAM #90 caps 10/18/24 11/06/24 Rx release oxycodone 5 mg tablet 10 mg (2 x 5 mg) PO Q6H PRN pain 10/18/24 11/06/24 Rx #150 tabs Patient History Medical History Pulmonary embolism Diabetic ulcer of toe of right foot Chronic osteomyelitis of spine History of recurrent deep vein thrombosis IVC filter Fusion of spine, thoracolumbar region T5-S1 Nocturnal enuresis Micronutrients deficiency Deep vein thrombosis LT. ankle and RT upper arm>only taking aspirin currently History of anesthesia problem "remembers being aware and hearing talking and conversations during his spinal surgery at [facility]" Hyperlipidemia Hypertension History of COVID-19 05/2021, home test, not hosp; headache, weakness, fatigue, no appetite, fever, diarrhea>resolved. Sleep apnea hx cpap>bipap>now not using anything; new study scheduled w/dr dean in 06/2022 Osteomyelitis Spinal stenosis Osteoporosis Status post gamma knife treatment pituitary gland Back pain chronic Pituitary tumor hx Surgical History Hx of tonsillectomy Hx of colonoscopy History of lumbar fusion T5-S1 History of cholecystectomy Family History Sister Breast cancer Multiple sclerosis Father Colorectal cancer Myocardial infarction Brother Myocardial infarction Prostate cancer Pancreatitis Denies family history of Ovarian cancer Social History Smoking Status: Never smoker Second Hand Exposure: Yes (as a child-father smoked); Do You Dip or Chew Tobacco: No; Hx Alcohol Use: No Hx Substance Use: No Preferred Language: Mohawk Communication Ability: Effective Visual Impairment: No Limitations Hearing Ability: Normal Intervention Manager Required: No Beliefs That Will Affect Care: None marital status: Current Living Situation: Spouse current occupational status: other current occupation: Disabled How many Children do You have: 1 Feels Safe at Home: Yes Safety Concerns: Feels Safe At This Time Childhood Exposure to Second-Hand Smoke: Yes Diet: regular caffeine: Yes during the past year weight has: decreased > 10 lbs Dental Care, Regularly: No Physical Activity Frequency: Does not Exercise Seatbelt Use: always Sunscreen Use: Yes Assistive Devices: Walker Review of Systems 2 Review of Systems: All systems reviewed & are unremarkable except as noted in HPI & below Physical Exam 2 Physical Exam: Constitutional: No acute distress HEENT: EOMI, PERRLA Respiratory system: Good air entry bilaterally, positive expiratory wheeze bilaterally, positive rhonchi, positive crackles bilateral lower lobes more on the right side anteriorly and posteriorly CVS: S1-S2 positive, no murmurs or gallops Abdomen: Soft, nontender, nondistended, positive bowel sounds x4, obese Extremities: +2 pulses bilaterally radialis/ dorsalis pedis, no cyanosis, +1 edema b/l lower lobe Neuro: Awake alert oriented x3 Psych: Normal mood and affect G/U: No [place] Skin: no rashes, warm and dry Lymphatic: no cervical or axillary lymphadenopathy Results & Data Results & Data Vital Signs (Past 12 Hours) Vital Signs Temp Pulse Pulse Resp BP BP Pulse Ox 11/14/24 12:22 36.6 C 77 20 132/78 98 11/14/24 11:32 67 19 96 11/14/24 11:17 67 19 87 L 11/14/24 10:06 11/14/24 08:15 36.4 C L 71 18 110/49 L 170/64 H 90 11/14/24 07:39 63 11/14/24 07:17 60 20 88 L 11/14/24 03:06 36.4 C L 60 20 129/58 L 89 L O2 Del Method O2 Flow Rate FiO2 11/14/24 12:22 High Flow Nasal Cannula 30 11/14/24 11:32 High Flow Nasal Cannula 30 90 11/14/24 11:17 Nasal Cannula 15 11/14/24 10:06 High Flow Nasal Cannula 13 11/14/24 08:15 Nasal Cannula 13 11/14/24 07:39 11/14/24 07:17 Nasal Cannula 13 11/14/24 03:06 High Flow Nasal Cannula 9.0 Laboratory Results 11/14/24 05:58 11/14/24 05:58 PG Care Time/CCT Total # of Minutes Spent Total Time Spent with Patient: Total time spent is greater than 50% in coordination of care (as documented) at patient's floor/unit and/or counseling patient: [place] [address] INT INP/OBS CARE 3/75MIN Patient Type New Diagnoses Acute respiratory failure with hypoxia J96.01 Hospital-acquired pneumonia J18.9; Y95 Complex sleep apnea syndrome G47.31 Morbid obesity with BMI of 40.0-44.9, adult E66.01; Z68.41 Pulmonary embolism I26.99 Acute cor pulmonale presence: unspecified Chronicity: acute Pulmonary embolism type: unspecified
[2024-11-14] MEDS ORDERED: ALBUT/IPRATROP 3MG/0.5MG NEB 3 ML VIAL NEB PRN (13:53)
--- NOTE | 2024-11-14 14:32 | Pharmacy Report ---
Pharmacy Glycemic Short Note 2 - Date of Service November 14, 2024 - Glycemic Short BSG Results (Last 24 hours): 11/13/24 11/13/24 11/13/24 16:05 16:06 20:51 Glucose POC Glucose 312 H* 293 H 283 H 11/14/24 11/14/24 11/14/24 05:58 07:24 11:16 Glucose 156 H POC Glucose 176 H 284 H OUTPATIENT ANTIDIABETIC REGIMEN: * Metformin 1 g PO BID * Glipizide 5 mg PO BID * Semaglutide 1 mg SC weekly HbA1c: 9.3% (07/26/24) ASSESSMENT: * TM is a 64 year old male, hospital day #8 for HAP * Pharmacy consulted for glycemic management today due to hyperglycemia and changing steroids * Previously ordered methylprednisolone 40 mg IV q8h, now discontinued * Ordered prednisone 1 mg PO TID and hydrocortisone 20 mg PO TID * Will tighten Novolog today and change to Lantus PLAN FOR INPATIENT GLYCEMIC CONTROL: * Hold outpatient oral diabetes medications * Basal insulin * Lantus 15 units SC daily * Lantus 0-10-15 units SC HS * Reassess in AM * Bolus insulin * NovoLog per scale ACHS or Q6hrs while NPO * Goal Range: Low 110 mg/dL - High 140 mg/dL * Correction Factor: 20 mg/dL/unit * Nutritional / Prandial insulin per carb ratio of 1 unit per 6 grams CHO consumed
[2024-11-14] MEDS: ALBUT/IPRATROP 3MG/0.5MG NEB 3 ML VIAL NEB STA (15:05)
--- NOTE | 2024-11-14 16:54 | XCELERA ---
[id number] \\[id number]
[2024-11-14] MEDS: guaiFENesin 600 MG TABCR PO SCH (19:50)
[2024-11-14] MEDS: FORMOTEROL 20 MCG/2 ML VIAL NEB SCH (20:05)
[2024-11-14] MEDS: BUDESONIDE 0.5 MG/2 ML VIAL (PULMICORT) NEB SCH (20:05)
[2024-11-14] MEDS: SODIUM CHLOR 7% 4 ML NEB NEB SCH (20:07)
[2024-11-15 07:07] LABS: Hematocrit (blood only) 41.0 % (42.0-52.0); Hemoglobin 12.1 g/dl (14.0-18.0); Mean Corpuscular Hemoglobin 21.1 pg (25.0-34.0); Mean Corpuscular Volume 71.6 fL (80.0-100.0); Platelet Count 231 K/uL (130-400); RDW Standard Deviation 51.9 fL (36.4-46.3); Red Blood Count 5.73 M/uL (4.70-6.10); White Blood Count 17.80 K/ul (4.8-10.8)
[2024-11-15 07:08] LABS: Anion Gap 4.0 (3-11); Blood Urea Nitrogen 19.0 mg/dl (6-23); Calcium 8.5 mg/dl (8.6-10.3); Carbon Dioxide 34.0 mmol/L (21-32); Chloride 98.0 mmol/L (98-107); Creatinine Clr Calc Pharmacy 120.2 ml/min; Glucose 106.0 mg/dl (70-99(Fasting)); Magnesium 2.4 mg/dl (1.7-2.4); Potassium 4.9 mmol/L (3.5-5.1); Sodium 136.0 mmol/L (136-145)
[2024-11-15 07:11] LABS: Immature Granulocytes # (auto) 0.69 K/uL (0.01-0.20); Immature Granulocytes % (auto) 3.9 %; Microcytosis Present; Ovalocytes 1+; Polychromasia 3+
[2024-11-15] MEDS ORDERED: LANTUS PER UNIT CHARGE SC SCH (09:00)
--- NOTE | 2024-11-15 11:18 | Hospitalist Progress Note ---
Date of Service November 15, 2024 Assessment & Plan (1) Acute respiratory failure with hypoxia: (2) Hospital-acquired pneumonia: (3) Acute exacerbation of chronic low back pain: (4) Morbid obesity with BMI of 40.0-44.9, adult: (5) SINA (iron deficiency anemia): (6) Adrenal insufficiency: (7) Lymphedema associated with obesity: (8) Panhypopituitarism: (9) Diabetes type 2, uncontrolled: (10) Pulmonary embolism: (11) Hypertension: (12) Sleep apnea: (13) History of recurrent deep vein thrombosis: Plan 64-year-old male with past medical history of type 2 diabetes mellitus, iron deficiency anemia, history of DVT/PE on apixaban, hypertension, morbid obesity, chronic back pain with multiple back surgeries, history of osteomyelitis, panhypopituitarism with adrenal insufficiency presented to the hospital with acute on chronic pain with weakness and also chest pain worse on inspiration. #Acute hypoxic respiratory failure #Suspected hospital-acquired pneumonia Patient had CTA which showed no PE and bilateral groundglass opacities seen on CT scan. White count is elevated, likely secondary to IV steroids Continue IV Zosyn (day 4/7) MRSA is negative Patient denies any productive cough Patient's oxygen requirements are getting worse BNP is elevated 204 Echo was a limited study, EF of 60 to 65%, no regional wall motion abnormalities, moderate concentric LVH noted, mild pulmonary hypertension, no significant valvular abnormalities Trial of diuresis IV Lasix plus oral Aldactone x 1 dose again today to see if improvement in respiratory status Pulmonology saw the patient, recommended nebulizers, IV antibiotics and checking sputum for PJP although low suspicion for PJP given patient on chronic Bactrim per pulmonology Pulmonology recommended BiPAP at bedtime: Patient agreeable to BiPAP Patient is clear that he does not want intubation or mechanical ventilation: Spoke with patient and at bedside #Acute exacerbation of chronic back pain #Chronic constipation, likely secondary to opiates Patient was seen by spinal surgery team Patient has had previous lumbar surgery at outside institutions MRI scan was canceled due to artifact from previous instrumentation which will render interpretation useless PT/OT recommended rehab on discharge Stop IV steroids Continue pregabalin Tylenol 1000 mg p.o. 3 times daily Analgesia: Oxycodone 5 mg p.o. every 4 hours as needed for moderate pain, increase oxycodone to 15 mg p.o. every 4 hours as needed for severe pain, Dilaudid 1 mg IV every 4 hours as needed for breakthrough pain Bowel management: Continue MiraLAX and senna #Type 2 diabetes mellitus #Morbid obesity BMI is greater than 40 A1c 7.8 Blood sugars uncontrolled likely from IV steroids Pharmacy consult for glycemic management #History of panhypopituitarism with adrenal insufficiency #Hypothyroidism Outpatient windows systems engineer is Dr. Almazan she Patient on chronic steroid therapy Continue prednisone 1 mg p.o. 3 times daily Continue increased dose of hydrocortisone to 20 mg p.o. 3 times daily for now since patient is under stressful conditions from hypoxic respiratory failure with pneumonia Continue PPI Continue levothyroxine 250 mcg p.o. daily along with liothyronine 5 mcg p.o. every afternoon #Iron deficiency anemia Hold oral iron supplementation given severe constipation Monitor H&H #History of recurrent DVT/PE CTA did not show evidence of PE Continue apixaban 5 mg p.o. twice daily CODE STATUS: DNR/DNI DVT prophylaxis: Patient on apixaban Discharge planning: Likely to SNF/acute rehab when medically stable likely in the next 3 to 4 days: Pending clinical improvement, improvement in oxygenation Care plan discussed with patient, nursing staff Teri ([phone]) updated at bedside Admission and Anticipated Discharge Date Admission Date: November 06, 2024 Subjective Patient seen and examined Teri at bedside Patient denies any chest pain or shortness of breath Patient states he is coughing more but no sputum is coming out He is now needing 45 L of oxygen Patient feels his pain is not adequately controlled and wants to increase his pain medications: Patient states he takes total of 60 mg of oxycodone at home He had a large bowel movement yesterday He denies any nausea or vomiting and tolerating oral diet without any issues Physical Exam Physical Exam: General: No acute distress Psych: Awake and alert, oriented to place and person HEENT: Anicteric sclera, moist oral mucosa CVS: Regular rate and rhythm Lungs: Bilateral air entry with coarse breath sounds with crackles, no wheezing noted Abdomen: Soft, nontender, no rebound, no guarding Ext: Pitting lower extremity edema noted with CASSANDRA stockings in place, no calf tenderness Neuro: No focal motor deficits noted Results & Data Results & Data Vital Signs (Past 12 Hours) Vital Signs Temp Pulse Pulse Resp BP BP Pulse Ox 11/15/24 10:58 80 24 91 11/15/24 10:51 37.1 C 76 16 138/69 11/15/24 09:54 85 20 90 11/15/24 08:36 69 11/15/24 08:36 11/15/24 07:58 36.5 C 75 18 148/63 H 93 11/15/24 07:20 79 19 92 11/15/24 03:40 36.4 C L 75 20 120/72 95 11/15/24 02:29 86 14 90 O2 Del Method O2 Flow Rate FiO2 11/15/24 10:58 High Flow Nasal Cannula 45 50 11/15/24 10:51 11/15/24 09:54 High Flow Nasal Cannula 30 35 11/15/24 08:36 11/15/24 08:36 High Flow Nasal Cannula 30 11/15/24 07:58 High Flow Nasal Cannula 11/15/24 07:20 High Flow Nasal Cannula 30 35 11/15/24 03:40 BiPAP 35 11/15/24 02:29 35 Laboratory Results 11/15/24 11/15/24 11/14/24 07:20 05:49 21:00 WBC 17.80 H RBC 5.73 Hgb 12.1 L Hct 41.0 L MCV 71.6 L MCH 21.1 L MCHC 29.5 L RDW Std Deviation 51.9 H RDW Coeff of Tristan 21.9 H Plt Count 231 MPV 10.4 Immature Gran % (Auto) 3.9 Neut % (Auto) 83.7 Lymph % (Auto) 5.2 Hand % (Auto) 6.6 Eos % (Auto) 0.4 Baso % (Auto) 0.2 Neut # (Auto) 14.92 H Lymph # (Auto) 0.92 L Hand # (Auto) 1.17 H Eos # (Auto) 0.07 Baso # (Auto) 0.03 Immature Gran # (Auto) 0.69 H Absolute Nucleated RBC 0.03 Nucleated RBC % (auto) 0.2 Polychromasia 3+ Microcytosis Present Ovalocytes 1+ Sodium 136 Potassium 4.9 Chloride 98 Carbon Dioxide 34 H Anion Gap 4 BUN 19 Creatinine 0.80 Est Cr Clr Drug Dosing 120.2 eGFR 98.21 BUN/Creatinine Ratio 23.8 H Glucose 106 H POC Glucose 99 168 H Calcium 8.5 L Magnesium 2.4 Procalcitonin 11/14/24 11/14/24 11/14/24 16:30 11:16 06:07 WBC RBC Hgb Hct MCV MCH MCHC RDW Std Deviation RDW Coeff of Tristan Plt Count MPV Immature Gran % (Auto) Neut % (Auto) Lymph % (Auto) Hand % (Auto) Eos % (Auto) Baso % (Auto) Neut # (Auto) Lymph # (Auto) Hand # (Auto) Eos # (Auto) Baso # (Auto) Immature Gran # (Auto) Absolute Nucleated RBC Nucleated RBC % (auto) Polychromasia Microcytosis Ovalocytes Sodium Potassium Chloride Carbon Dioxide Anion Gap BUN Creatinine Est Cr Clr Drug Dosing eGFR BUN/Creatinine Ratio Glucose POC Glucose 227 H 284 H Calcium Magnesium Procalcitonin 0.13 Diagnostic Findings Chest X-Ray 11/14/24 09:40 XR chest 1V portable CLINICAL HISTORY: sob ?CHF COMPARISON STUDY: 11/12/2024 FINDINGS: Stable thoracic metallic fusion. Stable mild cardiomegaly without pulmonary vascular congestion. Inspiration is shallow. There is stable diffuse reticular and faint patchy pulmonary opacities. No lobar consolidation, pleural effusion, or pneumothorax. IMPRESSION: Stable diffuse faint pulmonary opacities. ACT 112: Negative or not required by law. Electronically signed by: Jake Martinez M.D. 11/14/2024 11:27 AM PG Care Time/CCT Total # of Minutes Spent Total Time Spent with Patient: Total time spent is greater than 50% in coordination of care (as documented) at patient's floor/unit and/or counseling patient: Coding Level of Care Code 28971 SUB INP/OBS CARE 3/50MIN Diagnoses Acute respiratory failure with hypoxia J96.01 Hospital-acquired pneumonia J18.9; Y95 Acute exacerbation of chronic low back pain M54.50; G89.29 Morbid obesity with BMI of 40.0-44.9, adult E66.01; Z68.41 SINA (iron deficiency anemia) D50.9 Adrenal insufficiency E27.40 Lymphedema associated with obesity I89.0; E66.9 Panhypopituitarism E23.0 Uncontrolled type 2 diabetes mellitus with hyperglycemia E11.65 Glycemic state: with hyperglycemia Pulmonary embolism I26.99 Acute cor pulmonale presence: unspecified Chronicity: acute Pulmonary embolism type: unspecified Hypertension I10 Sleep apnea G47.30 History of recurrent deep vein thrombosis Z86.718 (9) Diabetes type 2, uncontrolled Glycemic state: with hyperglycemia Qualified Code(s): E11.65 - Type 2 diabetes mellitus with hyperglycemia (10) Pulmonary embolism Acute cor pulmonale presence: unspecified Chronicity: acute Pulmonary embolism type: unspecified Qualified Code(s): I26.99 - Other pulmonary embolism without acute cor pulmonale
[2024-11-15] MEDS: FUROSEMIDE 40 MG/4 ML VIAL IV STA (11:39)
[2024-11-15] MEDS: SPIRONOLACTONE 25 MG TAB PO ONE (11:39)
[2024-11-15] MEDS: LANTUS PER UNIT CHARGE SC ONE (11:52)
--- NOTE | 2024-11-15 13:10 | Pharmacy Report ---
Pharmacy Glycemic Short Note 2 - Date of Service November 15, 2024 - Glycemic Short BSG Results (Last 24 hours): 11/14/24 11/14/24 11/15/24 16:30 21:00 05:49 Glucose 106 H POC Glucose 227 H 168 H 11/15/24 11/15/24 07:20 11:34 Glucose POC Glucose 99 125 H OUTPATIENT ANTIDIABETIC REGIMEN: * Metformin 1 g PO BID * Glipizide 5 mg PO BID * Semaglutide 1 mg SC weekly HbA1c: 9.3% (07/26/24) ASSESSMENT: 11/15/24: * Blood sugars ranging 168-284 mg/dL yesterday, but with significantly reduced fasting blood sugar this morning of 99 mg/dL * Will plan to loosen all insulin today since we are another day removed from IV methylprednisolone 11/14/24: * TM is a 64 year old male, hospital day #8 for HAP * Pharmacy consulted for glycemic management today due to hyperglycemia and changing steroids * Previously ordered methylprednisolone 40 mg IV q8h, now discontinued * Ordered prednisone 1 mg PO TID and hydrocortisone 20 mg PO TID * Will tighten Novolog today and change to Lantus PLAN FOR INPATIENT GLYCEMIC CONTROL: * Hold outpatient oral diabetes medications * Basal insulin * Lantus 10 units SC x 1 today * Reassess in AM * Bolus insulin * NovoLog per scale ACHS or Q6hrs while NPO * Goal Range: Low 110 mg/dL - High 140 mg/dL * Correction Factor: 25 mg/dL/unit * Nutritional / Prandial insulin per carb ratio of 1 unit per 8 grams CHO consumed
[2024-11-16 06:26] LABS: Hematocrit (blood only) 40.6 % (42.0-52.0); Hemoglobin 12.1 g/dl (14.0-18.0); Mean Corpuscular Hemoglobin 21.2 pg (25.0-34.0); Mean Corpuscular Volume 71.0 fL (80.0-100.0); Platelet Count 203 K/uL (130-400); RDW Standard Deviation 50.9 fL (36.4-46.3); Red Blood Count 5.72 M/uL (4.70-6.10); White Blood Count 18.48 K/ul (4.8-10.8)
[2024-11-16 06:29] LABS: Alanine Aminotransferase 25.0 U/L (7-52); Albumin Globulin Ratio 1.0 (0.9-2); Alkaline Phosphatase 68.0 U/L (34-104); Anion Gap 4.0 (3-11); Bilirubin,Total 0.5 mg/dl (0.2-1.0); Blood Urea Nitrogen 15.0 mg/dl (6-23); Calcium 8.1 mg/dl (8.6-10.3); Carbon Dioxide 35.0 mmol/L (21-32); Chloride 95.0 mmol/L (98-107); Creatinine Clr Calc Pharmacy 125.2 ml/min; Globulin 3.2 gm/dl (2.5-4.0); Glucose 106.0 mg/dl (70-99(Fasting)); Magnesium 2.2 mg/dl (1.7-2.4); Potassium 4.6 mmol/L (3.5-5.1); Sodium 134.0 mmol/L (136-145); Total Protein 6.3 gm/dl (6.0-8.3)
[2024-11-16 06:47] LABS: Anisocytosis Present; Hypersegmented Neutrophils 1+; Immature Granulocytes # (auto) 0.60 K/uL (0.01-0.20); Immature Granulocytes % (auto) 3.2 %; Ovalocytes 1+; Toxic Vacuolation 1+
[2024-11-16] MEDS: LANTUS PER UNIT CHARGE SC SCH (08:44)
--- NOTE | 2024-11-16 09:27 | XRay Report ---
XR chest 1V portable CLINICAL HISTORY: pneumonia, resp failure COMPARISON STUDY: 11/14/2024 FINDINGS: Stable thoracic spinal rods. Stable mild cardiomegaly without pulmonary vascular congestion . Stable faint diffuse reticular and patchy pulmonary opacities, left greater than right. No pleural effusion or pneumothorax. Stable old left rib fractures. IMPRESSION: Stable exam. ACT 112: Negative or not required by law. Electronically signed by: Jake Martinez M.D. 11/16/2024 9:26 AM
--- NOTE | 2024-11-16 12:38 | Hospitalist Progress Note ---
Date of Service November 16, 2024 Assessment & Plan (1) Acute exacerbation of chronic low back pain: Plan: Appreciate orthopedic spine consultation and recommendations. The patient has had previous lumbar surgery at an outside institution. MRI scan canceled due to expected artifact from previous instrumentation which will render interpretation useless. Solu-Medrol has been switched to oral hydrocortisone therapy. Steroid therapy is contributing to his leukocytosis along with the suspected pneumonia. Continue pain control measures. He has a high narcotic tolerance due to chronic home narcotic use (2) Hospital-acquired pneumonia: Plan: Bilateral groundglass opacity seen on CT scan indicating probable viral etiology. No sputum production for culture. He remains on intravenous Zosyn however, day 6. He denies hemoptysis or pleuritic type pain (3) Acute respiratory failure with hypoxia: Plan: Supplemental oxygen per nasal cannula to maintain saturation greater than 90%. Unfortunately he is requiring high flow oxygen. Wean down as tolerated. Continue to treat underlying pneumonia (4) Diabetes type 2, uncontrolled: Plan: ADA diet. Sliding scale coverage. Glucose levels exacerbated by steroid therapy. Continue basal insulin therapy (5) Chest pain: Plan: Noncardiac. Now resolved. No acute EKG changes. No evidence of acute coronary syndrome (6) Adrenal insufficiency: Plan: Known panhypopituitarism and adrenal insufficiency. Continue chronic oral steroid therapy. (7) Morbid obesity with BMI of 40.0-44.9, adult: Plan: Significant weight loss recommended (8) SINA (iron deficiency anemia): Plan: Ferrous gluconate dosage has been uptitrated to twice daily dosing (9) Acute bronchitis: Plan: He appears now to have bilateral groundglass opacities seen on CT scan consistent with a viral pneumonia process. This appears to be hospital-acquired pneumonia. He remains on intravenous Zosyn as a precaution, day 6. Continue steroid therapy. Appreciate pulmonary medicine assistance. Plan Hopeful discharge to rehab facility when medically stable. Case management pursuing placement at either [facility] or [facility]. Admission and Anticipated Discharge Date Admission Date: November 06, 2024 Subjective Alert and oriented. Not much change since I last saw him. He remains on intravenous Zosyn, day 6. Chest CTA was done recently and was negative for PE but he does have bilateral groundglass opacities thought to be due to pneumonia. Pulmonary medicine consultation and recommendations noted. Solu-Medrol has been switched to hydrocortisone 20 mg 3 times a day. Chest x-ray done today, November 16, remained stable. Review of Systems 2 Review of Systems: Constitutionalno fever or chills ENTno blurred vision, no double vision, no epistaxis, no sore throat Respiratorynonproductive cough and wheezing. No hemoptysis. Cardiacno palpitations, no chest pain, no syncope Lizzy nausea, vomiting, diarrhea, melena, hematochezia GUno urinary retention, no urinary incontinence, no dysuria, no hematuria Musculoskeletallumbar pain radiating to both legs persists Skinno bruising, no rashes, no pruritus Neurobilateral lower extremity weakness Psychdepressed affect Physical Exam 2 Physical Exam: General-alert and oriented x3, no fever. Obesity noted HEENT-head atraumatic and normocephalic, pupils equal and reactive to light, extraocular muscles intact Neck-no lymphadenopathy or thyromegaly, trachea midline Chest-bilateral expiratory wheezes. Dry cough. No inspiratory rales Cardiac-regular rate and rhythm, normal S1 and S2 Abdomen-normal bowel sounds, no hepatosplenomegaly Extremities-tenderness over the lumbar spine to palpation. Mild chronic appearing bilateral lower extremity edema. Neuro-cranial nerves II through XII intact, bilateral lower extremity weakness. No focal deficits Psych-depressed affect Results & Data Results & Data Vital Signs (Past 12 Hours) Vital Signs Temp Pulse Resp BP BP Pulse Ox O2 Del Method 11/16/24 11:53 36.5 C 60 22 147/72 H 91 High Flow Nasal Cannula 11/16/24 10:40 72 18 92 High Flow Nasal Cannula 11/16/24 09:36 High Flow Nasal Cannula 11/16/24 07:40 36.9 C 69 22 137/70 96 High Flow Nasal Cannula 11/16/24 06:58 70 20 96 High Flow Nasal Cannula 11/16/24 04:00 36.4 C L 67 18 129/75 97 High Flow Nasal Cannula 11/16/24 02:46 78 18 94 High Flow Nasal Cannula O2 Flow Rate FiO2 11/16/24 11:53 60 51 11/16/24 10:40 40 50 11/16/24 09:36 11/16/24 07:40 40 60 11/16/24 06:58 45 60 11/16/24 04:00 11/16/24 02:46 45 60 Laboratory Results 11/16/24 05:43 11/16/24 05:43 PG Care Time/CCT Total # of Minutes Spent Total Time Spent with Patient: Total time spent is greater than 50% in coordination of care (as documented) at patient's floor/unit and/or counseling patient: Coding Level of Care Code 27817 SUB INP/OBS CARE 2/35MIN Diagnoses Acute exacerbation of chronic low back pain M54.50; G89.29 Hospital-acquired pneumonia J18.9; Y95 Acute respiratory failure with hypoxia J96.01 Uncontrolled type 2 diabetes mellitus with hyperglycemia E11.65 Glycemic state: with hyperglycemia Chest pain R07.9 Adrenal insufficiency E27.40 Morbid obesity with BMI of 40.0-44.9, adult E66.01; Z68.41 SINA (iron deficiency anemia) D50.9 Acute bronchitis J20.9 (4) Diabetes type 2, uncontrolled Glycemic state: with hyperglycemia Qualified Code(s): E11.65 - Type 2 diabetes mellitus with hyperglycemia
[2024-11-17 06:28] LABS: Hematocrit (blood only) 42.4 % (42.0-52.0); Hemoglobin 12.8 g/dl (14.0-18.0); Immature Granulocytes # (auto) 0.71 K/uL (0.01-0.20); Immature Granulocytes % (auto) 4.0 %; Mean Corpuscular Hemoglobin 21.7 pg (25.0-34.0); Mean Corpuscular Volume 71.7 fL (80.0-100.0); Platelet Count 218 K/uL (130-400); RDW Standard Deviation 52.1 fL (36.4-46.3); Red Blood Count 5.91 M/uL (4.70-6.10); White Blood Count 17.90 K/ul (4.8-10.8)
[2024-11-17 06:48] LABS: Anion Gap 5.0 (3-11); Blood Urea Nitrogen 13.0 mg/dl (6-23); Calcium 8.9 mg/dl (8.6-10.3); Carbon Dioxide 35.0 mmol/L (21-32); Chloride 94.0 mmol/L (98-107); Creatinine Clr Calc Pharmacy 137.9 ml/min; Glucose 149.0 mg/dl (70-99(Fasting)); Potassium 5.0 mmol/L (3.5-5.1); Sodium 134.0 mmol/L (136-145)
[2024-11-17 06:53] LABS: Anisocytosis Present; Ovalocytes 1+; Polychromasia 1+
[2024-11-17] MEDS: SODIUM CHLORIDE 0.65% NA SOLN 45 ML (OCEAN) ONE (08:01)
--- NOTE | 2024-11-17 12:27 | Hospitalist Progress Note ---
Date of Service November 17, 2024 Assessment & Plan (1) Acute exacerbation of chronic low back pain: Plan: Appreciate orthopedic spine consultation and recommendations. The patient has had previous lumbar surgery at an outside institution. MRI scan canceled due to expected artifact from previous instrumentation which will render interpretation useless. No significant response to parenteral steroid therapy or Zosyn. Antibiotics have been switched to Levaquin and vancomycin. Sed rate is markedly elevated. This raises the question of underlying infectious process. Solu- Medrol has been switched to oral hydrocortisone therapy. Steroid therapy is contributing to his leukocytosis along with the suspected pneumonia. Continue pain control measures. He has a high narcotic tolerance due to chronic home narcotic use. Will pursue transfer to the tertiary [facility] that did his initial back surgery (2) Hospital-acquired pneumonia: Plan: Bilateral groundglass opacity seen on CT scan indicating probable viral etiology. No sputum production for culture. He has been treated with intravenous Zosyn for 7 days. Antibiotics have been switched to Levaquin and vancomycin. He denies hemoptysis or pleuritic type pain (3) Acute respiratory failure with hypoxia: Plan: Supplemental oxygen per nasal cannula to maintain saturation greater than 90%. Unfortunately he is requiring high flow oxygen. Wean down as tolerated. Continue to treat underlying pneumonia. Chest x-ray every 2 days (4) Diabetes type 2, uncontrolled: Plan: ADA diet. Sliding scale coverage. Glucose levels exacerbated by steroid therapy. Continue basal insulin therapy (5) Chest pain: Plan: Noncardiac. Now resolved. No acute EKG changes. No evidence of acute coronary syndrome (6) Adrenal insufficiency: Plan: Known panhypopituitarism and adrenal insufficiency. Continue chronic oral steroid therapy. (7) Morbid obesity with BMI of 40.0-44.9, adult: Plan: Significant weight loss recommended (8) SINA (iron deficiency anemia): Plan: Ferrous gluconate dosage has been uptitrated to twice daily dosing (9) Acute bronchitis: Plan: He appears now to have bilateral groundglass opacities seen on CT scan consistent with a viral pneumonia process. This appears to be hospital-acquired pneumonia. He has been treated with Zosyn for the past 7 days. Antibiotics have been switched to Levaquin and vancomycin for his suspected lumbar infectious process. He remains on steroid therapy. Appreciate pulmonary medicine assistance. Plan Will pursue transfer back to the tertiary care center that did his initial back surgery. I will give his , Teri, a phone call today, November 17, to get her up-to-date Admission and Anticipated Discharge Date Admission Date: November 06, 2024 Subjective The patient still appears to be in considerable pain. Due to his lack of response to Zosyn and steroid therapy, this raises the question of an infectious process involving the previous lumbar instrumentation. Unfortunately, MRI scanning cannot be pursued here. Sed rate is markedly elevated at 90 and he continues to have a leukocytosis. Antibiotics have been switched to Levaquin and vancomycin. I will pursue transfer back to the tertiary care center where he had his initial back surgery Review of Systems 2 Review of Systems: Constitutionalno fever or chills. He continues to have considerable lumbar pain at rest ENTno blurred vision, no double vision, no epistaxis, no sore throat Respiratorynonproductive cough and wheezing. No hemoptysis. Cardiacno palpitations, no chest pain, no syncope Lizzy nausea, vomiting, diarrhea, melena, hematochezia GUno urinary retention, no urinary incontinence, no dysuria, no hematuria Musculoskeletallumbar pain radiating to both legs persists Skinno bruising, no rashes, no pruritus Neurobilateral lower extremity weakness Psychdepressed affect Physical Exam 2 Physical Exam: General-alert and oriented x3, no fever. Obesity noted HEENT-head atraumatic and normocephalic, pupils equal and reactive to light, extraocular muscles intact Neck-no lymphadenopathy or thyromegaly, trachea midline Chest-bilateral expiratory wheezes. Dry cough. No inspiratory rales Cardiac-regular rate and rhythm, normal S1 and S2 Abdomen-normal bowel sounds, no hepatosplenomegaly Extremities-tenderness over the lumbar spine to palpation. Mild chronic appearing bilateral lower extremity edema. Neuro-cranial nerves II through XII intact, bilateral lower extremity weakness. No focal deficits Psych-depressed affect Results & Data Results & Data Vital Signs (Past 12 Hours) Vital Signs Temp Pulse Resp BP BP Pulse Ox O2 Del Method 11/17/24 11:55 36.7 C 91 H 18 111/78 90 High Flow Nasal Cannula 11/17/24 10:24 78 18 91 Nasal Cannula 11/17/24 07:56 36.9 C 69 18 166/67 H 90 High Flow Nasal Cannula 11/17/24 07:16 68 18 96 High Flow Nasal Cannula 11/17/24 07:14 68 18 96 High Flow Nasal Cannula 11/17/24 04:00 36.6 C 70 19 142/77 H 94 High Flow Nasal Cannula 11/17/24 02:07 74 20 90 High Flow Nasal Cannula O2 Flow Rate FiO2 11/17/24 11:55 5 11/17/24 10:24 6 11/17/24 07:56 40 40 11/17/24 07:16 40 40 11/17/24 07:14 40 40 11/17/24 04:00 40 11/17/24 02:07 40 40 Laboratory Results 11/17/24 05:32 11/17/24 05:32 PG Care Time/CCT Total # of Minutes Spent Total Time Spent with Patient: Total time spent is greater than 50% in coordination of care (as documented) at patient's floor/unit and/or counseling patient: Coding Level of Care Code 37490 SUB INP/OBS CARE 3/50MIN Diagnoses Acute exacerbation of chronic low back pain M54.50; G89.29 Hospital-acquired pneumonia J18.9; Y95 Acute respiratory failure with hypoxia J96.01 Uncontrolled type 2 diabetes mellitus with hyperglycemia E11.65 Glycemic state: with hyperglycemia Chest pain R07.9 Adrenal insufficiency E27.40 Morbid obesity with BMI of 40.0-44.9, adult E66.01; Z68.41 SINA (iron deficiency anemia) D50.9 Acute bronchitis J20.9 (4) Diabetes type 2, uncontrolled Glycemic state: with hyperglycemia Qualified Code(s): E11.65 - Type 2 diabetes mellitus with hyperglycemia
[2024-11-17] MEDS ORDERED: VANCOMYCIN CONSULT ACTIVE PRN (12:54)
[2024-11-17] MEDS ORDERED: VANCOMYCIN HCL 1,000 MG/270 ML BAG IV SCH (13:00)
[2024-11-17] MEDS: VANCOMYCIN HCL 2,500 MG in SODIUM CHLORIDE 0.9% 500 ML IV STA (13:42)
--- NOTE | 2024-11-17 13:44 | XRay Report ---
XR chest 1V portable CLINICAL HISTORY: worsening respiratory failure, pneumonia COMPARISON STUDY: 11/16/2024 FINDINGS: Stable spinal fusion. Stable mild cardiomegaly without pulmonary vascular congestion. Stabl e faint diffuse reticular and patchy pulmonary opacities, left greater than right. No consolidation o r pleural effusion otherwise. No pneumothorax. IMPRESSION: Stable exam. ACT 112: Negative or not required by law. Electronically signed by: Jake Martinez M.D. 11/17/2024 1:43 PM
--- NOTE | 2024-11-17 14:05 | Pharmacy Report ---
Pharmacy PK ABX Note - Date of Service November 17, 2024 - Assessment and Plan Assessment 64 year old M receiving levofloxacin/vancomycin for treatment of HAP/VAP, potential infectious process in . Pertinent microbiologic data includes: negative MRSA Nasal Swab. Treated with Zosyn for 7 days and not improving. Day # 1 of vancomycin therapy. Plan Vancomycin * Loading dose: 2500 mg IV x 1 * Maintenance dose: 1500 mg IV every 12 hours * Regimen is predicted to achieve target AUC/CHIN of 400-600 mg/L.hr * Random level to be ordered if continued Pharmacy will continue to follow and will adjust dose/frequency as necessary. Thank you. Pharmacy has transitioned to AUC monitoring for vancomycin. AUC/CHIN is the preferred PK/PD target and is associated with decreased risk of nephrotoxicity compared to traditional trough targets.
[2024-11-17 14:30] LABS: iSTAT Art Bld Gas Base Excess 9.0 meg/L (-9-1.8)
[2024-11-17] MEDS: HYDROmorphone INJ 2 MG/ML SYR/VIAL IV PRN (15:42)
[2024-11-18] MEDS: VANCOMYCIN HCL 1,500 MG in SODIUM CHLORIDE 0.9% 500 ML IV SCH (00:44)
[2024-11-18 06:15] LABS: Anion Gap 3.0 (3-11); Blood Urea Nitrogen 12.0 mg/dl (6-23); Calcium 8.3 mg/dl (8.6-10.3); Carbon Dioxide 32.0 mmol/L (21-32); Chloride 100.0 mmol/L (98-107); Creatinine Clr Calc Pharmacy 155.7 ml/min; Glucose 132.0 mg/dl (70-99(Fasting)); Potassium 4.4 mmol/L (3.5-5.1); Sodium 135.0 mmol/L (136-145)
[2024-11-18 06:33] LABS: Anisocytosis Present; Hematocrit (blood only) 34.9 % (42.0-52.0); Hemoglobin 10.2 g/dl (14.0-18.0); Immature Granulocytes # (auto) 0.67 K/uL (0.01-0.20); Immature Granulocytes % (auto) 4.0 %; Mean Corpuscular Hemoglobin 21.1 pg (25.0-34.0); Mean Corpuscular Volume 72.1 fL (80.0-100.0); Ovalocytes 1+; Platelet Count 184 K/uL (130-400); Polychromasia 1+; RDW Standard Deviation 52.1 fL (36.4-46.3); Red Blood Count 4.84 M/uL (4.70-6.10); White Blood Count 16.71 K/ul (4.8-10.8)
--- NOTE | 2024-11-18 08:46 | XRay Report ---
EXAM: XR chest 1V portable CLINICAL HISTORY: Pneumonia, hypoxia TECHNIQUE: An X-ray image of the chest is obtained in AP projection. COMPARISON: 11/16/2024. FINDINGS: Pulmonary Parenchyma: Bilateral subtle haziness seen in the upper zones, especially in the left lung. Few bilateral prominent bronchovascular/interstitial markings. No evidence of pleural effusion or pleural thickening. Heart and Mediastinum: Heart size and shape are normal. No mediastinal widening or masses. No hilar or mediastinal lymphadenopathy. Bony Thorax: Bony thorax appears intact without fractures or deformities. Spinal fixation screws seen involving the thoracic spine which appears in situ. Soft Tissues: Soft tissues overlying the chest wall are unremarkable. Elevated right diaphragmatic copula. IMPRESSION: 1. Bilateral ill-defined haziness seen in both upper zones especially and marked in the left upper zone. Post-inflammatory. Suggest clinical correlation. 2. Elevated right diaphragmatic copula. 3. Comparing the previous x-ray dated 11/16/2024 there is interval stable. Electronically signed by Cade Douglas 11-18-2024 08:45 AM
--- NOTE | 2024-11-18 11:30 | Hospitalist Progress Note ---
Date of Service November 18, 2024 Assessment & Plan (1) Acute exacerbation of chronic low back pain: Plan: Appreciate orthopedic spine consultation and recommendations. The patient has had previous lumbar surgery at an outside institution. MRI scan canceled due to expected artifact from previous instrumentation which will render interpretation useless. No significant response to parenteral steroid therapy or Zosyn. Antibiotics have been switched to Levaquin and vancomycin, day 2. It appears his respiratory status is now improving. Sed rate is markedly elevated. This raises the question of underlying infectious process. Solu-Medrol has been switched to oral hydrocortisone therapy. Steroid therapy is contributing to his leukocytosis along with the suspected pneumonia. Continue pain control measures. He has a high narcotic tolerance due to chronic home narcotic use. [facility] was contacted yesterday, November 17, but refused to accept the patient in transfer. (2) Hospital-acquired pneumonia: Plan: Bilateral groundglass opacity seen on CT scan indicating probable viral etiology. No sputum production for culture. He has been treated with intravenous Zosyn for 7 days. Antibiotics have been switched to Levaquin and vancomycin, day 2. He denies hemoptysis or pleuritic type pain. He states he feels better and nursing staff agrees that his respiratory status has improved (3) Acute respiratory failure with hypoxia: Plan: Supplemental oxygen per nasal cannula to maintain saturation greater than 90%. Unfortunately he is requiring 5 to 6 L/min per nasal cannula. Wean down as tolerated. Continue to treat underlying pneumonia. Chest x-ray every 2 days (4) Diabetes type 2, uncontrolled: Plan: ADA diet. Sliding scale coverage. Glucose levels exacerbated by steroid therapy. Continue basal insulin therapy (5) Chest pain: Plan: Noncardiac. Now resolved. No acute EKG changes. No evidence of acute coronary syndrome (6) Adrenal insufficiency: Plan: Known panhypopituitarism and adrenal insufficiency. Continue chronic oral steroid therapy. (7) Morbid obesity with BMI of 40.0-44.9, adult: Plan: Significant weight loss recommended (8) SINA (iron deficiency anemia): Plan: Ferrous gluconate dosage has been uptitrated to twice daily dosing (9) Acute bronchitis: Plan: He appears now to have bilateral groundglass opacities seen on CT scan consistent with a viral pneumonia process. This appears to be hospital-acquired pneumonia. He has been treated with Zosyn for the past 7 days. Antibiotics have been switched to Levaquin and vancomycin for his pneumonia and possible lumbar infectious process. He remains on steroid therapy. Appreciate pulmonary medicine assistance. Plan [facility] refused to accept the patient in transfer. Continue current medical management. CT myelogram later today, November 18 Admission and Anticipated Discharge Date Admission Date: November 06, 2024 Subjective Alert and oriented. He has a high tolerance for opioids due to chronic use at home and is tolerating high-dose Dilaudid quite well. Overall he is feeling better. Chest x-ray done today, November 18 is stable and his pneumonia has improved with the change of antibiotics to Levaquin and vancomycin, day 2. He is not producing any sputum for culture. CT myelogram will be obtained later today, November 18. [facility] refused to accept the patient in transfer yesterday, November 17. He remains on 6 L of oxygen. Oral fluid restriction has been initiated since he is drinking quite a bit of liquids. Review of Systems 2 Review of Systems: Constitutionalno fever or chills. He continues to have considerable lumbar pain at rest ENTno blurred vision, no double vision, no epistaxis, no sore throat Respiratorynonproductive cough and wheezing. No hemoptysis. Cardiacno palpitations, no chest pain, no syncope Lizzy nausea, vomiting, diarrhea, melena, hematochezia GUno urinary retention, no urinary incontinence, no dysuria, no hematuria Musculoskeletallumbar pain radiating to both legs persists Skinno bruising, no rashes, no pruritus Neurobilateral lower extremity weakness Psychdepressed affect Physical Exam 2 Physical Exam: General-alert and oriented x3, no fever. Obesity noted HEENT-head atraumatic and normocephalic, pupils equal and reactive to light, extraocular muscles intact Neck-no lymphadenopathy or thyromegaly, trachea midline Chest-bilateral expiratory wheezes. Dry cough. No inspiratory rales Cardiac-regular rate and rhythm, normal S1 and S2 Abdomen-normal bowel sounds, no hepatosplenomegaly Extremities-tenderness over the lumbar spine to palpation. Mild chronic appearing bilateral lower extremity edema. Neuro-cranial nerves II through XII intact, bilateral lower extremity weakness. No focal deficits Psych-depressed affect Results & Data Results & Data Vital Signs (Past 12 Hours) Vital Signs Temp Pulse Pulse Resp BP Pulse Ox O2 Del Method 11/18/24 10:11 68 18 94 Nasal Cannula 11/18/24 10:00 56 L 11/18/24 10:00 Nasal Cannula 11/18/24 07:23 36.5 C 60 18 120/62 93 Nasal Cannula 11/18/24 06:51 60 18 93 Nasal Cannula 11/18/24 03:40 36.4 C L 64 22 112/67 94 Nasal Cannula 11/18/24 00:08 36.5 C 69 18 145/74 H 91 Nasal Cannula O2 Flow Rate 11/18/24 10:11 6 11/18/24 10:00 11/18/24 10:00 6 11/18/24 07:23 6 11/18/24 06:51 6 11/18/24 03:40 6 11/18/24 00:08 6 Laboratory Results 11/18/24 05:24 11/18/24 05:24 PG Care Time/CCT Total # of Minutes Spent Total Time Spent with Patient: Total time spent is greater than 50% in coordination of care (as documented) at patient's floor/unit and/or counseling patient: Coding Level of Care Code 93654 SUB INP/OBS CARE 3/50MIN Diagnoses Acute exacerbation of chronic low back pain M54.50; G89.29 Hospital-acquired pneumonia J18.9; Y95 Acute respiratory failure with hypoxia J96.01 Uncontrolled type 2 diabetes mellitus with hyperglycemia E11.65 Glycemic state: with hyperglycemia Chest pain R07.9 Adrenal insufficiency E27.40 Morbid obesity with BMI of 40.0-44.9, adult E66.01; Z68.41 SINA (iron deficiency anemia) D50.9 Acute bronchitis J20.9 (4) Diabetes type 2, uncontrolled Glycemic state: with hyperglycemia Qualified Code(s): E11.65 - Type 2 diabetes mellitus with hyperglycemia
[2024-11-19 05:51] LABS: Hematocrit (blood only) 37.9 % (42.0-52.0); Hemoglobin 11.0 g/dl (14.0-18.0); Immature Granulocytes # (auto) 0.61 K/uL (0.01-0.20); Immature Granulocytes % (auto) 3.7 %; Mean Corpuscular Hemoglobin 21.2 pg (25.0-34.0); Mean Corpuscular Volume 72.9 fL (80.0-100.0); Platelet Count 202 K/uL (130-400); RDW Standard Deviation 53.3 fL (36.4-46.3); Red Blood Count 5.20 M/uL (4.70-6.10); White Blood Count 16.44 K/ul (4.8-10.8)
[2024-11-19 06:07] LABS: Anion Gap 1.0 (3-11); Blood Urea Nitrogen 11.0 mg/dl (6-23); Calcium 8.5 mg/dl (8.6-10.3); Carbon Dioxide 35.0 mmol/L (21-32); Chloride 102.0 mmol/L (98-107); Creatinine Clr Calc Pharmacy 158.6 ml/min; Glucose 96.0 mg/dl (70-99(Fasting)); Potassium 4.7 mmol/L (3.5-5.1); Sodium 138.0 mmol/L (136-145)
[2024-11-19 06:36] LABS: Anisocytosis Present; Ovalocytes 1+; Polychromasia 1+
--- NOTE | 2024-11-19 11:54 | Hospitalist Progress Note ---
Date of Service November 19, 2024 Assessment & Plan (1) Acute exacerbation of chronic low back pain: Plan: Appreciate orthopedic spine consultation and recommendations. The patient has had previous lumbar surgery at an outside institution. MRI scan canceled due to expected artifact from previous instrumentation which will render interpretation useless. No significant response to parenteral steroid therapy or Zosyn. Antibiotics have been switched to Levaquin and vancomycin, day 3. His respiratory status is now improving. Sed rate is markedly elevated. This raises the question of underlying infectious process. Solu-Medrol has been switched to oral hydrocortisone therapy. Steroid therapy is contributing to his leukocytosis along with the suspected pneumonia. Continue pain control measures. He has a high narcotic tolerance due to chronic home narcotic use. [facility] was contacted on November 17 but refused to accept the patient in transfer. (2) Hospital-acquired pneumonia: Plan: Bilateral groundglass opacity seen on CT scan indicating probable viral etiology. No sputum production for culture. He has been treated with intravenous Zosyn for 7 days. Antibiotics have been switched to Levaquin and vancomycin, day 3. He denies hemoptysis or pleuritic type pain. He states he feels better and nursing staff agrees that his respiratory status has improved. Will repeat chest x-ray again tomorrow, November 20 (3) Acute respiratory failure with hypoxia: Plan: Supplemental oxygen per nasal cannula to maintain saturation greater than 90%. Oxygen requirements have been weaned down to 5 L/min per nasal cannula. Wean further as tolerated. Continue to treat underlying pneumonia. Chest x-ray every 2 days (4) Diabetes type 2, uncontrolled: Plan: ADA diet. Sliding scale coverage. Glucose levels exacerbated by steroid therapy. Continue basal insulin therapy (5) Chest pain: Plan: Noncardiac. Now resolved. No acute EKG changes. No evidence of acute coronary syndrome (6) Adrenal insufficiency: Plan: Known panhypopituitarism and adrenal insufficiency. Continue chronic oral steroid therapy. (7) Morbid obesity with BMI of 40.0-44.9, adult: Plan: Significant weight loss recommended (8) SINA (iron deficiency anemia): Plan: Ferrous gluconate dosage has been uptitrated to twice daily dosing. Hemoglobin is stable (9) Acute bronchitis: Plan: He appears now to have bilateral groundglass opacities seen on CT scan consistent with a viral pneumonia process. This appears to be hospital-acquired pneumonia. He has been treated with Zosyn this admission for 7 days. Antibiotics have been switched to Levaquin and vancomycin for his pneumonia and possible lumbar infectious process. He remains on oral steroid therapy. Appreciate pulmonary medicine assistance. [place] [facility] [place] in [place]. Continue current medical management. Hopeful discharge to [facility] this coming week Admission and Anticipated Discharge Date Admission Date: November 06, 2024 Subjective Alert and oriented. He appears to be making slow but steady improvement. He remains on Levaquin and vancomycin, day 3. Unfortunately the CT myelogram was not completed as ordered on November 18. I attempted to call his today, November 19, but there was no answer. I left a message. I will try to call her back again later today. He remains on oral hydrocortisone therapy. Placement pending at [facility] sometime hopefully this coming week. Will repeat chest x-ray again tomorrow, November 20. Oxygen requirements are now down to 5 L. Review of Systems 2 Review of Systems: Constitutionalno fever or chills. He continues to have considerable lumbar pain at rest ENTno blurred vision, no double vision, no epistaxis, no sore throat Respiratorynonproductive cough and wheezing. No hemoptysis. Cardiacno palpitations, no chest pain, no syncope Lizzy nausea, vomiting, diarrhea, melena, hematochezia GUno urinary retention, no urinary incontinence, no dysuria, no hematuria Musculoskeletallumbar pain radiating to both legs persists Skinno bruising, no rashes, no pruritus Neurobilateral lower extremity weakness Psychdepressed affect Physical Exam 2 Physical Exam: General-alert and oriented x3, no fever. Obesity noted HEENT-head atraumatic and normocephalic, pupils equal and reactive to light, extraocular muscles intact Neck-no lymphadenopathy or thyromegaly, trachea midline Chest-bilateral expiratory wheezes. Dry cough. No inspiratory rales Cardiac-regular rate and rhythm, normal S1 and S2 Abdomen-normal bowel sounds, no hepatosplenomegaly Extremities-tenderness over the lumbar spine to palpation. Mild chronic appearing bilateral lower extremity edema. Neuro-cranial nerves II through XII intact, bilateral lower extremity weakness. No focal deficits Psych-depressed affect Results & Data Results & Data Vital Signs (Past 12 Hours) Vital Signs Temp Pulse Pulse Resp BP Pulse Ox O2 Del Method 11/19/24 11:04 69 18 92 Nasal Cannula 11/19/24 09:33 Nasal Cannula 11/19/24 08:01 36.3 C L 62 20 109/58 L 97 Nasal Cannula 11/19/24 07:08 63 11/19/24 06:59 59 L 18 96 Nasal Cannula 11/19/24 04:00 36.4 C L 64 18 134/69 93 Nasal Cannula O2 Flow Rate 11/19/24 11:04 5 11/19/24 09:33 5 11/19/24 08:01 5 11/19/24 07:08 11/19/24 06:59 7 11/19/24 04:00 7 Laboratory Results 11/19/24 05:27 11/19/24 05:27 PG Care Time/CCT Total # of Minutes Spent Total Time Spent with Patient: Total time spent is greater than 50% in coordination of care (as documented) at patient's floor/unit and/or counseling patient: Coding Level of Care Code 96562 SUB INP/OBS CARE 2/35MIN Diagnoses Acute exacerbation of chronic low back pain M54.50; G89.29 Hospital-acquired pneumonia J18.9; Y95 Acute respiratory failure with hypoxia J96.01 Uncontrolled type 2 diabetes mellitus with hyperglycemia E11.65 Glycemic state: with hyperglycemia Chest pain R07.9 Adrenal insufficiency E27.40 Morbid obesity with BMI of 40.0-44.9, adult E66.01; Z68.41 SINA (iron deficiency anemia) D50.9 Acute bronchitis J20.9 (4) Diabetes type 2, uncontrolled Glycemic state: with hyperglycemia Qualified Code(s): E11.65 - Type 2 diabetes mellitus with hyperglycemia
[2024-11-19] MEDS: VANCOMYCIN HCL 1,750 MG in SODIUM CHLORIDE 0.9% 500 ML IV SCH (12:29)
--- NOTE | 2024-11-19 15:21 | Pharmacy Report ---
Pharmacy PK ABX Note - Date of Service November 19, 2024 - Assessment and Plan Assessment 11/19: Day 3 of Vancomycin therapy. Patient has been receiving Vancomycin 1500 mg IV q12h. Also on Levaquin 750 mg IV q24h. Renal function stable. Afebrile. WBC still elevated. Random level obtained early today morning after 3 maintenance doses. 11/17: 64 year old M receiving levofloxacin/vancomycin for treatment of HAP/VAP, potential infectious process in . Pertinent microbiologic data includes: negative MRSA Nasal Swab. Treated with Zosyn for 7 days and not improving. Day # 1 of vancomycin therapy. Plan Vancomycin * Previous regimen Vancomycin 1500 mg IV every 12 hours * Random level obtained 11/19/24 @ 0527 resulted as 17 mcg/mL. * Predicted AUC at steady state: 448 mg/L.hr * Since indication for Vancomycin is HAP/VAP, will target AUC/CHIN above 500 mg/L.hr * Vancomycin dosing changed to 1750 mg IV every 12 hours. Expect AUC/CHIN in the 500-600 mg/L.hr range * Random level ordered for: 11/21/24 with AM labs. Pharmacy will continue to follow and will adjust dose/frequency as necessary. Thank you. Pharmacy has transitioned to AUC monitoring for vancomycin. AUC/CHIN is the preferred PK/PD target and is associated with decreased risk of nephrotoxicity compared to traditional trough targets.
[2024-11-20] MEDS: HYDROmorphone INJ 1 MG/ML SYRINGE IV PRN (00:25)
[2024-11-20 06:08] LABS: Hematocrit (blood only) 36.5 % (42.0-52.0); Hemoglobin 10.3 g/dl (14.0-18.0); Immature Granulocytes # (auto) 0.52 K/uL (0.01-0.20); Immature Granulocytes % (auto) 3.5 %; Mean Corpuscular Hemoglobin 21.0 pg (25.0-34.0); Mean Corpuscular Volume 74.3 fL (80.0-100.0); Platelet Count 212 K/uL (130-400); RDW Standard Deviation 54.9 fL (36.4-46.3); Red Blood Count 4.91 M/uL (4.70-6.10); White Blood Count 14.98 K/ul (4.8-10.8)
[2024-11-20 06:23] LABS: Anion Gap 1.0 (3-11); Blood Urea Nitrogen 10.0 mg/dl (6-23); Calcium 8.3 mg/dl (8.6-10.3); Carbon Dioxide 35.0 mmol/L (21-32); Chloride 102.0 mmol/L (98-107); Creatinine Clr Calc Pharmacy 144.4 ml/min; Glucose 103.0 mg/dl (70-99(Fasting)); Potassium 4.2 mmol/L (3.5-5.1); Sodium 138.0 mmol/L (136-145)
[2024-11-20 06:29] LABS: Anisocytosis Present; Polychromasia 1+
--- NOTE | 2024-11-20 08:14 | XRay Report ---
EXAM: Radiograph of the Chest 1 View INDICATION: Pneumonia TECHNIQUE: Frontal view of the chest. COMPARISON: 11/17/2024 and 11/18/2024 FINDINGS: Lungs and pleural spaces: Generalized increased pulmonary vascular markings and asymmetric groundglass density in the left lung. No pleural effusion or pneumothorax. Heart: Stable large cardiac shadow. Mediastinum: Normal contour. Bones/joints: Visualized posterior thoracolumbar hardware grossly intact. No acute osseous abnormality. Soft tissues: No abnormality noted. No radiopaque foreign body noted. Upper abdomen: No abnormality noted. IMPRESSION: Increased vascular congestion with new asymmetric groundglass density in the left lung. Considerations clued asymmetric aspiration pneumonitis, atypical pneumonia and developing pulmonary edema. ACT 112: N/A Electronically signed by Sarah Jalloh 11-20-2024 08:13 AM
[2024-11-20] MEDS: FUROSEMIDE 40 MG/4 ML VIAL IV ONE (11:40)
[2024-11-20] MEDS: HYDROCORTISONE 10 MG TAB PO SCH (14:38)
--- NOTE | 2024-11-20 14:57 | Hospitalist Progress Note ---
Date of Service November 20, 2024 Assessment & Plan (1) Acute exacerbation of chronic low back pain: Plan: Appreciate orthopedic spine consultation and recommendations. The patient has had previous lumbar surgery at an outside institution. MRI scan canceled due to expected artifact from previous instrumentation which will render interpretation useless. No significant response to parenteral steroid therapy or Zosyn. Antibiotics have been switched to Levaquin and vancomycin, day 4. His respiratory status seems to be improving. Sed rate is markedly elevated. This raises the question of underlying infectious process involving his lumbar hardware. Solu-Medrol has been switched to oral hydrocortisone therapy. Steroid therapy is contributing to his leukocytosis along with the suspected pneumonia. Continue pain control measures. He has a high narcotic tolerance due to chronic home narcotic use. [facility] was contacted on November 17 but refused to accept the patient in transfer. (2) Hospital-acquired pneumonia: Plan: Bilateral groundglass opacity seen on CT scan indicating probable viral etiology. No sputum production for culture. He has been treated with intravenous Zosyn for 7 days. Antibiotics have been switched to Levaquin and vancomycin, day 4. He denies hemoptysis or pleuritic type pain. He states he feels better and nursing staff agrees that his respiratory status has improved. Repeat chest x-ray done today, November 20, looks better upon my review. (3) Acute respiratory failure with hypoxia: Plan: Supplemental oxygen per nasal cannula to maintain saturation greater than 90%. Oxygen requirements are trending downward, now 4 L/min per nasal cannula. Wean further as tolerated. Continue to treat underlying pneumonia. Chest x-ray every 2 days (4) Diabetes type 2, uncontrolled: Plan: ADA diet. Sliding scale coverage. Glucose levels exacerbated by steroid therapy. Continue basal insulin therapy (5) Chest pain: Plan: Noncardiac. Now resolved. No acute EKG changes. No evidence of acute coronary syndrome (6) Adrenal insufficiency: Plan: Known panhypopituitarism and adrenal insufficiency. Continue chronic oral steroid therapy. Hydrocortisone dosage was down titrated today, November 20 (7) Morbid obesity with BMI of 40.0-44.9, adult: Plan: Significant weight loss recommended (8) SINA (iron deficiency anemia): Plan: Ferrous gluconate dosage has been uptitrated to twice daily dosing. Hemoglobin is stable (9) Acute bronchitis: Plan: He appears now to have bilateral groundglass opacities seen on CT scan consistent with a viral pneumonia process. This appears to be hospital-acquired pneumonia. He has been treated with Zosyn this admission for 7 days. Antibiotics have been switched to Levaquin and vancomycin for his pneumonia and possible lumbar infectious process. He remains on oral steroid therapy. Appreciate pulmonary medicine assistance. (10) Fluid overload: Plan: Suspected due to prolonged hospitalization. He responded nicely to a dose of parenteral Lasix today, November 20. Will follow Plan [facility] [place] in [place]. Continue current medical management. Hopeful discharge to [facility] this coming week Admission and Anticipated Discharge Date Admission Date: November 06, 2024 Subjective He looks and feels better. He responded with brisk diuresis to a single dose of parenteral Lasix today, November 20. I believe he probably had some fluid overload from his prolonged hospitalization. Hydrocortisone dosage has been down titrated. He remains on intravenous Levaquin and vancomycin, day 4. Chest x- ray done today, November 20, is stable overall. Again, [facility] refused to accept the patient in transfer when contacted earlier this admission. CT myelogram remains pending Review of Systems 2 Review of Systems: Constitutionalno fever or chills. He continues to have considerable lumbar pain at rest ENTno blurred vision, no double vision, no epistaxis, no sore throat Respiratorynonproductive cough and wheezing. No hemoptysis. Cardiacno palpitations, no chest pain, no syncope Lizzy nausea, vomiting, diarrhea, melena, hematochezia GUno urinary retention, no urinary incontinence, no dysuria, no hematuria Musculoskeletallumbar pain radiating to both legs persists Skinno bruising, no rashes, no pruritus Neurobilateral lower extremity weakness Psychdepressed affect Physical Exam 2 Physical Exam: General-alert and oriented x3, no fever. Obesity noted HEENT-head atraumatic and normocephalic, pupils equal and reactive to light, extraocular muscles intact Neck-no lymphadenopathy or thyromegaly, trachea midline Chest-bilateral expiratory wheezes. Dry cough. No inspiratory rales Cardiac-regular rate and rhythm, normal S1 and S2 Abdomen-normal bowel sounds, no hepatosplenomegaly Extremities-tenderness over the lumbar spine to palpation. Mild chronic appearing bilateral lower extremity edema. Neuro-cranial nerves II through XII intact, bilateral lower extremity weakness. No focal deficits Psych-depressed affect Results & Data Results & Data Vital Signs (Past 12 Hours) Vital Signs Temp Pulse Pulse Resp BP Pulse Ox O2 Del Method 11/20/24 13:00 81 11/20/24 11:02 64 18 93 Nasal Cannula 11/20/24 10:33 57 L 11/20/24 10:15 Nasal Cannula 11/20/24 07:08 64 94 Nasal Cannula 11/20/24 07:00 36.4 C L 64 18 137/74 95 Room Air O2 Flow Rate 11/20/24 13:00 11/20/24 11:02 4 11/20/24 10:33 11/20/24 10:15 5 11/20/24 07:08 5 11/20/24 07:00 Laboratory Results 11/20/24 05:29 11/20/24 05:29 PG Care Time/CCT Total # of Minutes Spent Total Time Spent with Patient: Total time spent is greater than 50% in coordination of care (as documented) at patient's floor/unit and/or counseling patient: Coding Level of Care Code 17632 SUB INP/OBS CARE 3/50MIN Diagnoses Acute exacerbation of chronic low back pain M54.50; G89.29 Hospital-acquired pneumonia J18.9; Y95 Acute respiratory failure with hypoxia J96.01 Uncontrolled type 2 diabetes mellitus with hyperglycemia E11.65 Glycemic state: with hyperglycemia Chest pain R07.9 Adrenal insufficiency E27.40 Morbid obesity with BMI of 40.0-44.9, adult E66.01; Z68.41 SINA (iron deficiency anemia) D50.9 Acute bronchitis J20.9 Fluid overload E87.70 (4) Diabetes type 2, uncontrolled Glycemic state: with hyperglycemia Qualified Code(s): E11.65 - Type 2 diabetes mellitus with hyperglycemia
[2024-11-21 04:37] LABS: Hematocrit (blood only) 34.8 % (42.0-52.0); Hemoglobin 10.2 g/dl (14.0-18.0); Immature Granulocytes # (auto) 0.29 K/uL (0.01-0.20); Immature Granulocytes % (auto) 2.4 %; Mean Corpuscular Hemoglobin 21.3 pg (25.0-34.0); Mean Corpuscular Volume 72.8 fL (80.0-100.0); Platelet Count 193 K/uL (130-400); RDW Standard Deviation 54.4 fL (36.4-46.3); Red Blood Count 4.78 M/uL (4.70-6.10); White Blood Count 11.97 K/ul (4.8-10.8)
[2024-11-21 04:54] LABS: Anion Gap 2.0 (3-11); Blood Urea Nitrogen 11.0 mg/dl (6-23); Calcium 8.3 mg/dl (8.6-10.3); Carbon Dioxide 34.0 mmol/L (21-32); Chloride 103.0 mmol/L (98-107); Creatinine Clr Calc Pharmacy 161.2 ml/min; Glucose 126.0 mg/dl (70-99(Fasting)); Potassium 4.2 mmol/L (3.5-5.1); Sodium 139.0 mmol/L (136-145)
[2024-11-21 04:58] LABS: Anisocytosis Present; Ovalocytes 1+; Polychromasia 1+
--- NOTE | 2024-11-21 07:58 | Pharmacy Report ---
Pharmacy PK ABX Note - Date of Service November 21, 2024 - Assessment and Plan Assessment 11/21: Reviewed early vancomycin random level, predicting therapeutic AUC/CHIN continue current regimen. Renal function stable. 11/19: Day 3 of Vancomycin therapy. Patient has been receiving Vancomycin 1500 mg IV q12h. Also on Levaquin 750 mg IV q24h. Renal function stable. Afebrile. WBC still elevated. Random level obtained early today morning after 3 maintenance doses. 11/17: 64 year old M receiving levofloxacin/vancomycin for treatment of HAP/VAP, potential infectious process in . Pertinent microbiologic data includes: negative MRSA Nasal Swab. Treated with Zosyn for 7 days and not improving. Day # 1 of vancomycin therapy. Plan Vancomycin * Random level obtained 11/21/24 @ 0407 resulted as 25.2 mcg/mL (drawn approximately 4 hours after last dose, expected to be elevated) * Predicted AUC at steady state: 530 mg/L.hr * Since indication for vancomycin is HAP/VAP, will target AUC/CHIN above 500 mg/L.hr * Continue vancomycin 1750 mg IV every 12 hours. Expect AUC/CHIN in the 500-600 mg/L.hr range * Random level to be ordered if continued or based on clinical status. Pharmacy will continue to follow and will adjust dose/frequency as necessary. Thank you. Pharmacy has transitioned to AUC monitoring for vancomycin. AUC/CHIN is the preferred PK/PD target and is associated with decreased risk of nephrotoxicity compared to traditional trough targets.
--- NOTE | 2024-11-21 11:35 | Hospitalist Progress Note ---
Date of Service November 21, 2024 Assessment & Plan (1) Acute exacerbation of chronic low back pain: Plan: Appreciate orthopedic spine consultation and recommendations. The patient has had previous lumbar surgery at an outside institution. MRI scan canceled due to expected artifact from previous instrumentation which will render interpretation useless. No significant response to parenteral steroid therapy or Zosyn. Antibiotics have been switched to Levaquin and vancomycin, day 4. His respiratory status seems to be improving. Sed rate is markedly elevated. This raises the question of underlying infectious process involving his lumbar hardware. Solu-Medrol has been switched to oral hydrocortisone therapy. Steroid therapy is contributing to his leukocytosis along with the suspected pneumonia. Continue pain control measures. Fentanyl patch ordered today, November 21. He has a high narcotic tolerance due to chronic home narcotic use. [facility] was contacted on November 17 but refused to accept the patient in transfer. (2) Hospital-acquired pneumonia: Plan: Bilateral groundglass opacity seen on CT scan indicating probable viral etiology. No sputum production for culture. He has been treated with intravenous Zosyn for 7 days. Antibiotics have been switched to Levaquin and vancomycin, day 4 and he will be switched to oral Levaquin today, November 22, going forward. Vancomycin will be discontinued. Overall he has improved. (3) Acute respiratory failure with hypoxia: Plan: Supplemental oxygen per nasal cannula to maintain saturation greater than 90%. Oxygen requirements remain at 4 L/min per nasal cannula. Wean further as tolerated. Continue to treat underlying pneumonia. Chest x-ray every 2 days (4) Diabetes type 2, uncontrolled: Plan: ADA diet. Sliding scale coverage. Glucose levels exacerbated by steroid therapy. Continue basal insulin therapy (5) Chest pain: Plan: Noncardiac. Now resolved. No acute EKG changes. No evidence of acute coronary syndrome (6) Adrenal insufficiency: Plan: Known panhypopituitarism and adrenal insufficiency. Continue chronic oral steroid therapy. Hydrocortisone dosage was down titrated to his usual dosing on November 20 (7) Morbid obesity with BMI of 40.0-44.9, adult: Plan: Significant weight loss recommended (8) SINA (iron deficiency anemia): Plan: Ferrous gluconate dosage has been uptitrated to twice daily dosing. Hemoglobin is stable (9) Acute bronchitis: Plan: He appears now to have bilateral groundglass opacities seen on CT scan consistent with a viral pneumonia process. This appears to be hospital-acquired pneumonia. He has been treated with Zosyn this admission for 7 days. Antibiotics were switched to Levaquin and vancomycin for his pneumonia and possible lumbar infectious process and today, November 21, they were switched to oral Levaquin and vancomycin was discontinued. He remains on oral steroid therapy. Appreciate pulmonary medicine assistance. (10) Fluid overload: Plan: Suspected due to prolonged hospitalization. He responded nicely to a dose of parenteral Lasix given on November 20. Will follow Plan [facility] refused to accept the patient in transfer. Case management is pursuing SNF placement. Hopeful discharge to SNF within the next day or 2. Admission and Anticipated Discharge Date Admission Date: November 06, 2024 Subjective The patient states he feels better. Brisk diuresis with 1 dose of parenteral Lasix given yesterday, November 20. We discussed changing his pain medications and antibiotics to oral dosing since he will not receive parenteral narcotics at the SNF facility. Fentanyl patch has been started. Levaquin will be switched to p.o. and vancomycin discontinued. Will repeat chest x-ray again tomorrow, November 22. Oxygen requirements are down to [address] myelogram can be done today, November 21 Review of Systems 2 Review of Systems: Constitutionalno fever or chills. He continues to have considerable lumbar pain at rest ENTno blurred vision, no double vision, no epistaxis, no sore throat Respiratorynonproductive cough and wheezing. No hemoptysis. Cardiacno palpitations, no chest pain, no syncope Lizzy nausea, vomiting, diarrhea, melena, hematochezia GUno urinary retention, no urinary incontinence, no dysuria, no hematuria Musculoskeletallumbar pain radiating to both legs persists Skinno bruising, no rashes, no pruritus Neurobilateral lower extremity weakness Psychdepressed affect Physical Exam 2 Physical Exam: General-alert and oriented x3, no fever. Obesity noted HEENT-head atraumatic and normocephalic, pupils equal and reactive to light, extraocular muscles intact Neck-no lymphadenopathy or thyromegaly, trachea midline Chest-bilateral expiratory wheezes. Dry cough. No inspiratory rales Cardiac-regular rate and rhythm, normal S1 and S2 Abdomen-normal bowel sounds, no hepatosplenomegaly Extremities-tenderness over the lumbar spine to palpation. Mild chronic appearing bilateral lower extremity edema. Neuro-cranial nerves II through XII intact, bilateral lower extremity weakness. No focal deficits Psych-depressed affect Results & Data Results & Data Vital Signs (Past 12 Hours) Vital Signs Temp Pulse Pulse Resp BP Pulse Ox O2 Del Method 11/21/24 11:16 73 18 90 Nasal Cannula 11/21/24 08:08 36.6 C 72 20 108/60 94 Nasal Cannula 11/21/24 07:00 53 L 11/21/24 06:55 78 18 95 Nasal Cannula 11/21/24 03:57 36.7 C 67 18 140/75 97 Nasal Cannula 11/21/24 02:53 57 L 16 97 11/20/24 23:35 15 96 O2 Flow Rate FiO2 11/21/24 11:16 4 11/21/24 08:08 4 11/21/24 07:00 11/21/24 06:55 4 11/21/24 03:57 4 11/21/24 02:53 40 11/20/24 23:35 40 Laboratory Results 11/21/24 04:07 11/21/24 04:07 PG Care Time/CCT Total # of Minutes Spent Total Time Spent with Patient: Total time spent is greater than 50% in coordination of care (as documented) at patient's floor/unit and/or counseling patient: Coding Level of Care Code 62625 SUB INP/OBS CARE 3/50MIN Diagnoses Acute exacerbation of chronic low back pain M54.50; G89.29 Hospital-acquired pneumonia J18.9; Y95 Acute respiratory failure with hypoxia J96.01 Uncontrolled type 2 diabetes mellitus with hyperglycemia E11.65 Glycemic state: with hyperglycemia Chest pain R07.9 Adrenal insufficiency E27.40 Morbid obesity with BMI of 40.0-44.9, adult E66.01; Z68.41 SINA (iron deficiency anemia) D50.9 Acute bronchitis J20.9 Fluid overload E87.70 (4) Diabetes type 2, uncontrolled Glycemic state: with hyperglycemia Qualified Code(s): E11.65 - Type 2 diabetes mellitus with hyperglycemia
[2024-11-22 06:07] LABS: Hematocrit (blood only) 35.4 % (42.0-52.0); Hemoglobin 10.2 g/dl (14.0-18.0); Immature Granulocytes # (auto) 0.24 K/uL (0.01-0.20); Immature Granulocytes % (auto) 2.1 %; Mean Corpuscular Hemoglobin 21.2 pg (25.0-34.0); Mean Corpuscular Volume 73.4 fL (80.0-100.0); Platelet Count 201 K/uL (130-400); RDW Standard Deviation 55.8 fL (36.4-46.3); Red Blood Count 4.82 M/uL (4.70-6.10); White Blood Count 11.27 K/ul (4.8-10.8)
[2024-11-22 06:22] LABS: Anion Gap 1.0 (3-11); Calcium 8.4 mg/dl (8.6-10.3); Carbon Dioxide 36.0 mmol/L (21-32); Chloride 103.0 mmol/L (98-107); Potassium 4.6 mmol/L (3.5-5.1); Sodium 140.0 mmol/L (136-145)
[2024-11-22 06:28] LABS: Blood Urea Nitrogen 12.0 mg/dl (6-23); Creatinine Clr Calc Pharmacy 121.1 ml/min; Glucose 112.0 mg/dl (70-99(Fasting))
[2024-11-22 06:38] LABS: Anisocytosis Present; Hypochromasia Present
--- NOTE | 2024-11-22 07:56 | XRay Report ---
EXAM: XR chest 1V portable CLINICAL HISTORY: pneumonia, respiratory failure TECHNIQUE: X-ray image of the chest was obtained in frontal projection. COMPARISON: Prior X-ray dated 11/20/2024. FINDINGS: Pulmonary Parenchyma: Interval progression of the previously seen haziness in both lungs, mainly at the upper zones, more in the left lung. No evidence of pleural effusion or pleural thickening. Heart and Mediastinum: Heart size is within the average. No mediastinal widening or masses. Bony Thorax: Bony thorax appears intact without fractures or deformities. Spinal fixation screws seen involving the thoracic spine. Soft Tissues: Soft tissues overlying the chest wall are unremarkable. Elevated right Hemidiaphragm IMPRESSION: Interval progression of the previously seen haziness in both lungs, mainly at the upper zones, is more in the left lung; likely inflammatory/ infectious. Electronically signed by Cade Douglas 11-22-2024 07:56 AM
[2024-11-22] MEDS: FUROSEMIDE 40 MG/4 ML VIAL IV ONE (10:06)
--- NOTE | 2024-11-22 16:46 | Hospitalist Progress Note ---
Date of Service November 22, 2024 Assessment & Plan (1) Acute exacerbation of chronic low back pain: Plan: Appreciate orthopedic spine consultation and recommendations. The patient has had previous lumbar surgery at an outside institution. MRI scan canceled due to expected artifact from previous instrumentation which will render interpretation useless. No significant response to parenteral steroid therapy or Zosyn. Antibiotics have been switched to Levaquin and vancomycin, day 4. His respiratory status seems to be improving. Sed rate is markedly elevated. This raises the question of underlying infectious process involving his lumbar hardware. Solu-Medrol has been switched to oral hydrocortisone therapy. Steroid therapy is contributing to his leukocytosis along with the suspected pneumonia. Continue pain control measures. Fentanyl patch ordered on November 21 and will be adjusted according to response. He has a high narcotic tolerance due to chronic home narcotic use. [facility] was contacted on November 17 but refused to accept the patient in transfer. CT myelogram was ordered but canceled because Eliquis would need to be halted for 3 days prior to imaging. In my opinion, risks of stopping Eliquis outweigh any potential benefits of CT myelogram. (2) Hospital-acquired pneumonia: Plan: Bilateral groundglass opacity seen on CT scan indicating probable viral etiology. No sputum production for culture. He has been treated with intravenous Zosyn for 7 days. Antibiotics were switched to Levaquin and vancomycin for several days and then vancomycin was also discontinued. He is now on oral Levaquin. Overall he has improved. (3) Acute respiratory failure with hypoxia: Plan: Supplemental oxygen per nasal cannula to maintain saturation greater than 90%. Oxygen requirements remain at 4 L/min per nasal cannula. Wean further as tolerated. Continue to treat underlying pneumonia. Chest x-ray every 2 days (4) Diabetes type 2, uncontrolled: Plan: ADA diet. Sliding scale coverage. Glucose levels exacerbated by steroid therapy. Continue basal insulin therapy (5) Chest pain: Plan: Noncardiac. Now resolved. No acute EKG changes. No evidence of acute coronary syndrome (6) Adrenal insufficiency: Plan: Known panhypopituitarism and adrenal insufficiency. Continue chronic oral steroid therapy. Hydrocortisone dosage was down titrated to his usual dosing on November 20 (7) Morbid obesity with BMI of 40.0-44.9, adult: Plan: Significant weight loss recommended (8) SINA (iron deficiency anemia): Plan: Ferrous gluconate dosage has been uptitrated to twice daily dosing. Hemoglobin is stable (9) Acute bronchitis: Plan: He appears now to have bilateral groundglass opacities seen on CT scan consistent with a viral pneumonia process. This appears to be hospital-acquired pneumonia. He has been treated with Zosyn this admission for 7 days. Antibiotics were switched to Levaquin and vancomycin for his pneumonia and possible lumbar infectious process and on November 21 they were switched to oral Levaquin and vancomycin was discontinued. He remains on oral steroid therapy. Appreciate pulmonary medicine assistance. (10) Fluid overload: Plan: Suspected due to prolonged hospitalization. He responded nicely to a dose of parenteral Lasix given on November 20. Will give another dose of parenteral Lasix today, November 22. Will follow Plan [facility] refused to accept the patient in transfer. Case management is pursuing SNF placement. Hopeful discharge to [facility] within the next day or 2 when arrangements are finalized. Admission and Anticipated Discharge Date Admission Date: November 06, 2024 Subjective Alert and oriented. Stable overall. He is upset that the CT myelogram has been canceled. I feel that the risks involved with stopping the Eliquis therapy far outweigh any potential benefits of obtaining a CT myelogram. It will not change therapy anyway at this institution. He is not a surgical candidate here according to our orthopedic spine seo consultant. Dilaudid has been switched to oral dosing. Continue fentanyl patch for now. Will repeat parenteral Lasix x 1 dose today, November 22. He remains on 4 L of oxygen per nasal cannula. Levaquin, day 6 Review of Systems 2 Review of Systems: Constitutionalno fever or chills. He continues to have considerable lumbar pain at rest ENTno blurred vision, no double vision, no epistaxis, no sore throat Respiratorynonproductive cough and wheezing. No hemoptysis. Cardiacno palpitations, no chest pain, no syncope Lizzy nausea, vomiting, diarrhea, melena, hematochezia GUno urinary retention, no urinary incontinence, no dysuria, no hematuria Musculoskeletallumbar pain radiating to both legs persists Skinno bruising, no rashes, no pruritus Neurobilateral lower extremity weakness Psychdepressed affect Physical Exam 2 Physical Exam: General-alert and oriented x3, no fever. Obesity noted HEENT-head atraumatic and normocephalic, pupils equal and reactive to light, extraocular muscles intact Neck-no lymphadenopathy or thyromegaly, trachea midline Chest-bilateral expiratory wheezes. Dry cough. No inspiratory rales Cardiac-regular rate and rhythm, normal S1 and S2 Abdomen-normal bowel sounds, no hepatosplenomegaly Extremities-tenderness over the lumbar spine to palpation. Mild chronic appearing bilateral lower extremity edema. Neuro-cranial nerves II through XII intact, bilateral lower extremity weakness. No focal deficits Psych-depressed affect Results & Data Results & Data Vital Signs (Past 12 Hours) Vital Signs Temp Pulse Pulse Resp BP Pulse Ox O2 Del Method 11/22/24 15:33 36.5 C 63 18 129/66 92 Nasal Cannula 11/22/24 14:58 60 18 93 Nasal Cannula 11/22/24 14:36 70 11/22/24 11:15 36.4 C L 60 18 133/68 92 Nasal Cannula 11/22/24 10:40 60 18 93 Nasal Cannula 11/22/24 08:00 54 L 11/22/24 07:09 58 L 18 94 Nasal Cannula 11/22/24 07:06 36.3 C L 58 L 18 118/67 94 Nasal Cannula O2 Flow Rate 11/22/24 15:33 11/22/24 14:58 4 11/22/24 14:36 11/22/24 11:15 11/22/24 10:40 4 11/22/24 08:00 11/22/24 07:09 4 11/22/24 07:06 4 Laboratory Results 11/22/24 05:22 11/22/24 05:22 PG Care Time/CCT Total # of Minutes Spent Total Time Spent with Patient: Total time spent is greater than 50% in coordination of care (as documented) at patient's floor/unit and/or counseling patient: Coding Level of Care Code 13015 SUB INP/OBS CARE 2/35MIN Diagnoses Acute exacerbation of chronic low back pain M54.50; G89.29 Hospital-acquired pneumonia J18.9; Y95 Acute respiratory failure with hypoxia J96.01 Uncontrolled type 2 diabetes mellitus with hyperglycemia E11.65 Glycemic state: with hyperglycemia Chest pain R07.9 Adrenal insufficiency E27.40 Morbid obesity with BMI of 40.0-44.9, adult E66.01; Z68.41 SINA (iron deficiency anemia) D50.9 Acute bronchitis J20.9 Fluid overload E87.70 (4) Diabetes type 2, uncontrolled Glycemic state: with hyperglycemia Qualified Code(s): E11.65 - Type 2 diabetes mellitus with hyperglycemia
[2024-11-23 06:44] LABS: Anion Gap 1.0 (3-11); Blood Urea Nitrogen 13.0 mg/dl (6-23); Calcium 8.7 mg/dl (8.6-10.3); Carbon Dioxide 34.0 mmol/L (21-32); Chloride 103.0 mmol/L (98-107); Creatinine Clr Calc Pharmacy 124.8 ml/min; Glucose 118.0 mg/dl (70-99(Fasting)); Potassium 4.6 mmol/L (3.5-5.1); Sodium 138.0 mmol/L (136-145)
--- NOTE | 2024-11-23 13:05 | Hospitalist Progress Note ---
Date of Service November 23, 2024 Assessment & Plan (1) Acute exacerbation of chronic low back pain: Plan: Appreciate orthopedic spine consultation and recommendations. The patient has had previous lumbar surgery at an outside institution. MRI scan canceled due to expected artifact from previous instrumentation which will render interpretation useless. No significant response to parenteral steroid therapy or Zosyn. Antibiotics have been switched to Levaquin and vancomycin, day 4. His respiratory status seems to be improving. Sed rate is markedly elevated. This raises the question of underlying infectious process involving his lumbar hardware. Solu-Medrol has been switched to oral hydrocortisone therapy. Steroid therapy is contributing to his leukocytosis along with the suspected pneumonia. Continue pain control measures. Fentanyl patch ordered on November 21 and dosage uptitrated today, November 23. He has a high narcotic tolerance due to chronic home narcotic use. [facility] was contacted on November 17 but refused to accept the patient in transfer. CT myelogram was ordered but canceled because Eliquis would need to be halted for 3 days prior to imaging. In my opinion, risks of stopping Eliquis outweigh any potential benefits of CT myelogram results. (2) Hospital-acquired pneumonia: Plan: Bilateral groundglass opacity seen on CT scan indicating probable viral etiology. No sputum production for culture. He has been treated with intravenous Zosyn for 7 days. Antibiotics were switched to Levaquin and vancomycin for several days and then vancomycin was also discontinued. He is now on oral Levaquin, day 7 of Levaquin therapy. Overall he has improved. (3) Acute respiratory failure with hypoxia: Plan: Supplemental oxygen per nasal cannula to maintain saturation greater than 90%. Oxygen requirements remain at 4 L/min per nasal cannula. Wean further as tolerated. Continue to treat underlying pneumonia. Chest x-ray every 2 days (4) Diabetes type 2, uncontrolled: Plan: ADA diet. Sliding scale coverage. Glucose levels exacerbated by steroid therapy. Continue basal insulin therapy (5) Chest pain: Plan: Noncardiac. Now resolved. No acute EKG changes. No evidence of acute coronary syndrome (6) Adrenal insufficiency: Plan: Known panhypopituitarism and adrenal insufficiency. Continue chronic oral steroid therapy. Hydrocortisone dosage was down titrated to his usual dosing on November 20 (7) Morbid obesity with BMI of 40.0-44.9, adult: Plan: Significant weight loss recommended (8) SINA (iron deficiency anemia): Plan: Ferrous gluconate dosage has been uptitrated to twice daily dosing. Hemoglobin is stable (9) Acute bronchitis: Plan: He appears now to have bilateral groundglass opacities seen on CT scan consistent with a viral pneumonia process. This appears to be hospital-acquired pneumonia. He has been treated with Zosyn this admission for 7 days. Antibiotics were switched to Levaquin and vancomycin for his pneumonia and possible lumbar infectious process and on November 21 they were switched to oral Levaquin and vancomycin was discontinued. He remains on oral steroid therapy. Appreciate pulmonary medicine assistance. (10) Fluid overload: Plan: Suspected due to prolonged hospitalization. He responded nicely to a dose of parenteral Lasix given on November 20. He received another dose of parenteral Lasix on November 22. Will follow Plan [facility] [place] in [place]. Case management is pursuing SNF placement. Hopeful discharge to [facility] when arrangements are finalized. He is medically stable for discharge. Admission and Anticipated Discharge Date Admission Date: November 06, 2024 Subjective He continues to complain of considerable back pain but these complaints are so frequent that it is difficult to assess. He just completed physical therapy and is asking for more pain medication. Fentanyl patch has been increased from 25 mcg up to 50 mcg. Continue oral Dilaudid at current high dose. His tolerance for narcotics is quite high due to chronic use. CT myelogram was canceled due to the need to discontinue Eliquis for 3 days which I think is more risk than is acceptable for the results of a CT myelogram. Case management is waiting upon [facility] decision whether they will accept the patient. Levaquin day 7. He continues to require 4 L of oxygen per nasal cannula. Review of Systems 2 Review of Systems: Constitutionalno fever or chills. He continues to have considerable lumbar pain at rest ENTno blurred vision, no double vision, no epistaxis, no sore throat Respiratorynonproductive cough and wheezing. No hemoptysis. Cardiacno palpitations, no chest pain, no syncope Lizzy nausea, vomiting, diarrhea, melena, hematochezia GUno urinary retention, no urinary incontinence, no dysuria, no hematuria Musculoskeletallumbar pain radiating to both legs persists Skinno bruising, no rashes, no pruritus Neurobilateral lower extremity weakness Psychdepressed affect Physical Exam 2 Physical Exam: General-alert and oriented x3, no fever. Obesity noted HEENT-head atraumatic and normocephalic, pupils equal and reactive to light, extraocular muscles intact Neck-no lymphadenopathy or thyromegaly, trachea midline Chest-bilateral expiratory wheezes. Dry cough. No inspiratory rales Cardiac-regular rate and rhythm, normal S1 and S2 Abdomen-normal bowel sounds, no hepatosplenomegaly Extremities-tenderness over the lumbar spine to palpation. Mild chronic appearing bilateral lower extremity edema. Neuro-cranial nerves II through XII intact, bilateral lower extremity weakness. No focal deficits Psych-depressed affect Results & Data Results & Data Vital Signs (Past 12 Hours) Vital Signs Temp Pulse Resp BP BP Pulse Ox O2 Del Method 11/23/24 11:36 36.5 C 70 18 110/56 L 91 Nasal Cannula 11/23/24 10:50 80 18 92 Nasal Cannula 11/23/24 07:50 36.4 C L 60 18 157/78 H 93 Nasal Cannula 11/23/24 07:05 58 L 16 96 Nasal Cannula 11/23/24 03:22 36.5 C 56 L 18 155/65 H 91 Nasal Cannula O2 Flow Rate 11/23/24 11:36 2.0 11/23/24 10:50 3 11/23/24 07:50 4.0 11/23/24 07:05 4 11/23/24 03:22 4 Laboratory Results 11/22/24 05:22 11/23/24 05:31 PG Care Time/CCT Total # of Minutes Spent Total Time Spent with Patient: Total time spent is greater than 50% in coordination of care (as documented) at patient's floor/unit and/or counseling patient: Coding Level of Care Code 18067 SUB INP/OBS CARE 3/50MIN Diagnoses Acute exacerbation of chronic low back pain M54.50; G89.29 Hospital-acquired pneumonia J18.9; Y95 Acute respiratory failure with hypoxia J96.01 Uncontrolled type 2 diabetes mellitus with hyperglycemia E11.65 Glycemic state: with hyperglycemia Chest pain R07.9 Adrenal insufficiency E27.40 Morbid obesity with BMI of 40.0-44.9, adult E66.01; Z68.41 SINA (iron deficiency anemia) D50.9 Acute bronchitis J20.9 Fluid overload E87.70 (4) Diabetes type 2, uncontrolled Glycemic state: with hyperglycemia Qualified Code(s): E11.65 - Type 2 diabetes mellitus with hyperglycemia
[2024-11-23] MEDS: CALCIUM CARBONATE 500 MG CHEWABLE TAB PO ONE (17:31)
[2024-11-24 06:43] LABS: Anion Gap 2.0 (3-11); Blood Urea Nitrogen 12.0 mg/dl (6-23); Calcium 8.5 mg/dl (8.6-10.3); Carbon Dioxide 34.0 mmol/L (21-32); Chloride 101.0 mmol/L (98-107); Creatinine Clr Calc Pharmacy 144.8 ml/min; Glucose 136.0 mg/dl (70-99(Fasting)); Potassium 4.6 mmol/L (3.5-5.1); Sodium 137.0 mmol/L (136-145)
--- NOTE | 2024-11-24 13:09 | Hospitalist Progress Note ---
Date of Service November 24, 2024 Assessment & Plan (1) Acute exacerbation of chronic low back pain: Plan: Appreciate orthopedic spine consultation and recommendations. The patient has had previous lumbar surgery at an outside institution. MRI scan canceled due to expected artifact from previous instrumentation which will render interpretation useless. No significant response to parenteral steroid therapy or Zosyn. Antibiotics have been switched to Levaquin and vancomycin, day 4. His respiratory status seems to be improving. Sed rate is markedly elevated. This raises the question of underlying infectious process involving his lumbar hardware. Solu-Medrol has been switched to oral hydrocortisone therapy. Steroid therapy is contributing to his leukocytosis along with the suspected pneumonia. Continue pain control measures. Fentanyl patch ordered on November 21 and dosage uptitrated today, November 23. He has a high narcotic tolerance due to chronic home narcotic use. [facility] was contacted on November 17 but refused to accept the patient in transfer. CT myelogram was ordered but canceled because Eliquis would need to be halted for 3 days prior to imaging. In my opinion, risks of stopping Eliquis outweigh any potential benefits of obtaining CT myelogram results. (2) Hospital-acquired pneumonia: Plan: Bilateral groundglass opacity seen on CT scan indicating probable viral etiology. No sputum production for culture. He has been treated with intravenous Zosyn for 7 days. Antibiotics were switched to Levaquin and vancomycin for several days and then vancomycin was also discontinued. He is now on oral Levaquin, day 8. Overall he has improved. (3) Acute respiratory failure with hypoxia: Plan: Supplemental oxygen per nasal cannula to maintain saturation greater than 90%. Oxygen requirements have diminished to 2 L/min per nasal cannula. Wean further as tolerated. Continue to treat underlying pneumonia. Chest x-ray every 2 days (4) Diabetes type 2, uncontrolled: Plan: ADA diet. Sliding scale coverage. Glucose levels have been exacerbated by steroid therapy. Continue basal insulin therapy (5) Chest pain: Plan: Noncardiac. Now resolved. No acute EKG changes. No evidence of acute coronary syndrome (6) Adrenal insufficiency: Plan: Known panhypopituitarism and adrenal insufficiency. Continue chronic oral steroid therapy. Hydrocortisone dosage was down titrated to his usual dosing on November 20 (7) Morbid obesity with BMI of 40.0-44.9, adult: Plan: Significant weight loss recommended (8) SINA (iron deficiency anemia): Plan: Ferrous gluconate dosage has been uptitrated to twice daily dosing. Hemoglobin is stable (9) Acute bronchitis: Plan: He appears now to have bilateral groundglass opacities seen on CT scan consistent with a viral pneumonia process. This appears to be hospital-acquired pneumonia. He has been treated with Zosyn this admission for 7 days. Antibiotics were switched to Levaquin and vancomycin for his pneumonia and possible lumbar infectious process and on November 21 they were switched to oral Levaquin and vancomycin was discontinued. He remains on oral steroid therapy. Appreciate pulmonary medicine assistance. (10) Fluid overload: Plan: Suspected due to prolonged hospitalization. He responded nicely to a dose of parenteral Lasix given on November 20. He received another dose of parenteral Lasix on November 22. Will follow Plan [facility] refused to accept the patient in transfer. Case management is pursuing SNF placement. Hopeful discharge to [facility] SNF tomorrow, November 25. He will need a Dilaudid home pack at discharge to provide pain control medication for the first day or 2 when he is at [facility] while they await medication delivery. He is medically stable for discharge. Admission and Anticipated Discharge Date Admission Date: November 06, 2024 Subjective Alert and oriented. No new problems. Unfortunately, he will not be able to go to [facility] until tomorrow, November 25. He will need a Dilaudid home pack at discharge to make sure he has pain control available during the time that [facility] will be obtaining prescription medication from there outlying pharmacy. Review of Systems 2 Review of Systems: Constitutionalno fever or chills. He continues to have considerable lumbar pain at rest ENTno blurred vision, no double vision, no epistaxis, no sore throat Respiratorynonproductive cough and wheezing. No hemoptysis. Cardiacno palpitations, no chest pain, no syncope Lizzy nausea, vomiting, diarrhea, melena, hematochezia GUno urinary retention, no urinary incontinence, no dysuria, no hematuria Musculoskeletallumbar pain radiating to both legs persists Skinno bruising, no rashes, no pruritus Neurobilateral lower extremity weakness Psychdepressed affect Physical Exam 2 Physical Exam: General-alert and oriented x3, no fever. Obesity noted HEENT-head atraumatic and normocephalic, pupils equal and reactive to light, extraocular muscles intact Neck-no lymphadenopathy or thyromegaly, trachea midline Chest-bilateral expiratory wheezes. Dry cough. No inspiratory rales Cardiac-regular rate and rhythm, normal S1 and S2 Abdomen-normal bowel sounds, no hepatosplenomegaly Extremities-tenderness over the lumbar spine to palpation. Mild chronic appearing bilateral lower extremity edema. Neuro-cranial nerves II through XII intact, bilateral lower extremity weakness. No focal deficits Psych-depressed affect Results & Data Results & Data Vital Signs (Past 12 Hours) Vital Signs Temp Pulse Pulse Resp BP Pulse Ox O2 Del Method 11/24/24 11:04 36.3 C L 62 18 114/60 94 Nasal Cannula 11/24/24 10:25 69 16 95 Nasal Cannula 11/24/24 10:16 53 L 11/24/24 09:33 Nasal Cannula 11/24/24 07:50 36.5 C 55 L 18 145/75 H 95 Nasal Cannula 11/24/24 06:55 68 16 97 Nasal Cannula 11/24/24 03:08 36.3 C L 55 L 18 141/69 H 94 High Flow Nasal Cannula O2 Flow Rate 11/24/24 11:04 2.0 11/24/24 10:25 2 11/24/24 10:16 11/24/24 09:33 2 11/24/24 07:50 2.0 11/24/24 06:55 2 11/24/24 03:08 2 Laboratory Results 11/22/24 05:22 11/24/24 05:44 PG Care Time/CCT Total # of Minutes Spent Total Time Spent with Patient: Total time spent is greater than 50% in coordination of care (as documented) at patient's floor/unit and/or counseling patient: Coding Level of Care Code 62147 SUB INP/OBS CARE 2/35MIN Diagnoses Acute exacerbation of chronic low back pain M54.50; G89.29 Hospital-acquired pneumonia J18.9; Y95 Acute respiratory failure with hypoxia J96.01 Uncontrolled type 2 diabetes mellitus with hyperglycemia E11.65 Glycemic state: with hyperglycemia Chest pain R07.9 Adrenal insufficiency E27.40 Morbid obesity with BMI of 40.0-44.9, adult E66.01; Z68.41 SINA (iron deficiency anemia) D50.9 Acute bronchitis J20.9 Fluid overload E87.70 (4) Diabetes type 2, uncontrolled Glycemic state: with hyperglycemia Qualified Code(s): E11.65 - Type 2 diabetes mellitus with hyperglycemia
[2024-11-24] MEDS: CALCIUM CARBONATE 500 MG CHEWABLE TAB PO PRN (13:55)
[2024-11-24] MEDS: ALBUT/IPRATROP 3MG/0.5MG NEB 3 ML VIAL NEB SCH (22:12)
[2024-11-25 06:39] LABS: Anion Gap 5.0 (3-11); Blood Urea Nitrogen 13.0 mg/dl (6-23); Calcium 8.7 mg/dl (8.6-10.3); Carbon Dioxide 30.0 mmol/L (21-32); Chloride 102.0 mmol/L (98-107); Creatinine Clr Calc Pharmacy 134.3 ml/min; Glucose 112.0 mg/dl (70-99(Fasting)); Potassium 4.1 mmol/L (3.5-5.1); Sodium 137.0 mmol/L (136-145)
--- NOTE | 2024-11-25 10:20 | Hospitalist Progress Note ---
Date of Service November 25, 2024 Assessment & Plan (1) Acute exacerbation of chronic low back pain: Plan: Appreciate orthopedic spine consultation and recommendations. The patient has had previous lumbar surgery at an outside institution. MRI scan canceled due to expected artifact from previous instrumentation which will render interpretation useless. No significant response to parenteral steroid therapy or Zosyn. Antibiotics have been switched to Levaquin and vancomycin, day 4. His respiratory status seems to be improving. Sed rate is markedly elevated. This raises the question of underlying infectious process involving his lumbar hardware. Solu-Medrol has been switched to oral hydrocortisone therapy. Steroid therapy is contributing to his leukocytosis along with the suspected pneumonia. Continue pain control measures. Fentanyl patch ordered on November 21 and dosage uptitrated November 23. Doing well on reassessment following this. He has a high narcotic tolerance due to chronic home narcotic use. [facility] was contacted on November 17 but refused to accept the patient in transfer. CT myelogram was ordered but canceled because Eliquis would need to be halted for 3 days prior to imaging. Stopping Eliquis outweigh any potential benefits of obtaining CT myelogram results at this time. (2) Hospital-acquired pneumonia: Plan: Bilateral groundglass opacity seen on CT scan indicating probable viral etiology. No sputum production for culture. He has been treated with intravenous Zosyn for 7 days. Antibiotics were switched to Levaquin and vancomycin for several days and then vancomycin was also discontinued. He is now on oral Levaquin, continue through 11/30/2024. Clinically improved (3) Acute respiratory failure with hypoxia: Plan: Supplemental oxygen per nasal cannula to maintain saturation greater than 90%. Oxygen requirements have diminished to 1 L/min per nasal cannula. Wean further as tolerated. Continue to treat underlying pneumonia. Chest x-ray as needed (4) Diabetes type 2, uncontrolled: Plan: ADA diet. Sliding scale coverage. Glucose levels have been exacerbated by steroid therapy. Continue basal insulin therapy (5) Chest pain: Plan: Noncardiac. Now resolved. No acute EKG changes. No evidence of acute coronary syndrome (6) Adrenal insufficiency: Plan: Known panhypopituitarism and adrenal insufficiency. Continue chronic oral steroid therapy. Hydrocortisone dosage was down titrated to his usual dosing on November 20. Remains on home dosing (7) Morbid obesity with BMI of 40.0-44.9, adult: Plan: Significant weight loss recommended (8) SINA (iron deficiency anemia): Plan: Ferrous gluconate dosage has been uptitrated to twice daily dosing. Hemoglobin is stable (9) Acute bronchitis: Plan: He appears now to have bilateral groundglass opacities seen on CT scan consistent with a viral pneumonia process. This appears to be hospital-acquired pneumonia. He has been treated with Zosyn this admission for 7 days. Antibiotics were switched to Levaquin and vancomycin for his pneumonia and possible lumbar infectious process and on November 21 they were switched to oral Levaquin and vancomycin was discontinued. He remains on oral steroid therapy. Antibiotics as noted above. (10) Fluid overload: Plan: Suspected due to prolonged hospitalization. He responded well to a dose of parenteral Lasix given on November 20 and November 22. Plan Declined by [facility]. Case management following for alternatives. Admission and Anticipated Discharge Date Admission Date: November 06, 2024 Subjective Seen at the bedside. Pain adequately controlled. No spasms this morning. No fever/chills/sweats. Is on very high doses of narcotics including every 4 hour oral Dilaudid and fentanyl patch, no signs of respiratory suppression or sedation Expresses concerns about what he will do if spasms start as these frequently wi ll start a pain spinal for him but currently is doing well. He is pending placement. 1 week of scripts have been sent for him to the pharmacy to prevent a On his transfer out of the hospital. Unfortunately discharge to [facility] was subsequently declined and remains pending placement. CM to reevaluate Physical Exam Physical Exam: General: A&Ox3. NAD. Cooperative. Laying comfortably in bed HEENT: Atraumatic, normocephalic. Vision and hearing grossly intact Pulm: CTAB A&P. -wheezes, -rales, -rhonchi. Symmetrical chest rise. No increase in work of breathing. No respiratory distress. Cardiac: RRR, -mrg. Radial pulses intact and symmetrical. Abdominal: Nontender, nondistended, soft. BS present. Extremities: Warm, dry. Mild bilateral lower extremity pitting edema. Lower extremities remain qualitatively leak at baseline, patient denies change from prior Results & Data Results & Data Vital Signs (Past 12 Hours) Vital Signs Temp Pulse Pulse Resp BP BP Pulse Ox 11/25/24 08:50 11/25/24 07:58 36.6 C 82 16 114/66 94 11/25/24 07:19 58 L 11/25/24 06:59 53 L 16 95 11/25/24 03:33 36.4 C L 58 L 18 155/73 H 92 11/24/24 23:29 36.6 C 55 L 18 105/64 92 O2 Del Method O2 Flow Rate 11/25/24 08:50 Nasal Cannula 1 11/25/24 07:58 Nasal Cannula 1 11/25/24 07:19 11/25/24 06:59 Nasal Cannula 1 11/25/24 03:33 Nasal Cannula 1 11/24/24 23:29 Nasal Cannula 1 PG Care Time/CCT Total # of Minutes Spent Total Time Spent with Patient: Total time spent is greater than 50% in coordination of care (as documented) at patient's floor/unit and/or counseling patient: Coding Level of Care Code 72368 SUB INP/OBS CARE 3/50MIN Diagnoses Acute exacerbation of chronic low back pain M54.50; G89.29 Hospital-acquired pneumonia J18.9; Y95 Acute respiratory failure with hypoxia J96.01 Uncontrolled type 2 diabetes mellitus with hyperglycemia E11.65 Glycemic state: with hyperglycemia Chest pain R07.9 Adrenal insufficiency E27.40 Morbid obesity with BMI of 40.0-44.9, adult E66.01; Z68.41 SINA (iron deficiency anemia) D50.9 Acute bronchitis J20.9 Fluid overload E87.70 (4) Diabetes type 2, uncontrolled Glycemic state: with hyperglycemia Qualified Code(s): E11.65 - Type 2 diabetes mellitus with hyperglycemia
[2024-11-26] MEDS: CYCLOBENZAPRINE HCL 10 MG TAB PO ONE (06:18)
--- NOTE | 2024-11-26 13:14 | Hospitalist Progress Note ---
Date of Service November 26, 2024 Assessment & Plan (1) Acute exacerbation of chronic low back pain: Plan: Placement Pending. Case management following. Backup referrals have been made to [facility] and [facility]. Appreciate orthopedic spine consultation and recommendations. The patient has had previous lumbar surgery at an outside institution. MRI scan canceled due to expected artifact from previous instrumentation which will render interpretation useless. No significant response to parenteral steroid therapy or Zosyn. Antibiotics have been switched to Levaquin and vancomycin, day 4. His respiratory status seems to be improving. Sed rate is markedly elevated. This raises the question of underlying infectious process involving his lumbar hardware. Solu-Medrol has been switched to oral hydrocortisone therapy. Steroid therapy is contributing to his leukocytosis along with the suspected pneumonia. Continue pain control measures. Fentanyl patch ordered on November 21 and dosage uptitrated November 23. Doing well on reassessment following this. He has a high narcotic tolerance due to chronic home narcotic use. [facility] was contacted on November 17 but refused to accept the patient in transfer. CT myelogram was ordered but canceled because Eliquis would need to be halted for 3 days prior to imaging. Stopping Eliquis outweigh any potential benefits of obtaining CT myelogram results at this time. Overnight 11/25 did receive a dose of Valium 2 mg p.o. x 1 with improvement of his back spasm. Feels pain is tolerable on reassessment later in the day, although is somewhat anxious about having recurrent spasms Prednisone temporarily switched to 5 mg daily tablets due to availability of 1 mg tablets (2) Hospital-acquired pneumonia: Plan: Bilateral groundglass opacity seen on CT scan indicating probable viral etiology. No sputum production for culture. He has been treated with intravenous Zosyn for 7 days. Antibiotics were switched to Levaquin and va ncomycin for several days and then vancomycin was also discontinued. He is now on oral Levaquin, continue through 11/30/2024. Clinically improved (3) Acute respiratory failure with hypoxia: Plan: Supplemental oxygen per nasal cannula to maintain saturation greater than 90%. Oxygen requirements have diminished to 1-2 L/min per nasal cannula. Goal SpO2 90% (4) Diabetes type 2, uncontrolled: Plan: ADA diet. Sliding scale coverage. Glucose levels have been exacerbated by steroid therapy. Continue basal insulin therapy Spot labs as needed (5) Chest pain: Plan: Noncardiac. Now resolved. No acute EKG changes. No evidence of acute coronary syndrome (6) Adrenal insufficiency: Plan: Known panhypopituitarism and adrenal insufficiency. Continue chronic oral steroid therapy. Hydrocortisone dosage was down titrated to his usual dosing on November 20. Remains on home dosing (7) Morbid obesity with BMI of 40.0-44.9, adult: Plan: Significant weight loss recommended (8) SINA (iron deficiency anemia): Plan: Ferrous gluconate dosage has been uptitrated to twice daily dosing. Hemoglobin is stable (9) Fluid overload: Plan: Suspected due to prolonged hospitalization. He responded well to a dose of parenteral Lasix given on November 20 and November 22. Plan Declined by [facility]. Case management following for alternatives. [facility] and [facility] referrals have been placed Admission and Anticipated Discharge Date Admission Date: November 06, 2024 Subjective Seen at the bedside. Received Valium overnight for muscle spasm. At time of morning assessment he reports that the spasms/flare has improved. He is waiting to hear from additional options from case management. Denies fever chills sweats overnight. No shortness of breath or difficulty breathing. Intermittent chronic back pain which is similar to prior currently tolerable. He reports he does worry about if he has more spasms in the future, additional doses are not required at time bedside assessment Case management following. Backup referrals have been made to [facility] and [facility]. Placement pending. Physical Exam Physical Exam: General: A&Ox3. NAD. Cooperative. Laying in bed HEENT: Atraumatic, normocephalic. Vision and hearing grossly intact Pulm: CTAB A&P. -wheezes, -rales, -rhonchi. Symmetrical chest rise. No increase in work of breathing. No respiratory distress. On 2L NC Cardiac: RRR, -mrg. Radial pulses intact and symmetrical. Abdominal: Nontender, nondistended, soft. BS present. Extremities: Warm, dry. Mild bilateral lower extremity pitting edema. No acute change in LE strength/sensation Results & Data Results & Data Vital Signs (Past 12 Hours) Vital Signs Temp Pulse Pulse Resp BP BP Pulse Ox 11/26/24 12:07 74 18 93 11/26/24 10:28 11/26/24 10:17 36.7 C 92 H 16 112/64 99 11/26/24 08:15 36.5 C 60 18 111/63 94 11/26/24 07:18 98 H 11/26/24 05:11 102/71 11/26/24 05:10 105 H 99/63 L 11/26/24 02:21 36.3 C L 67 16 134/62 90 O2 Del Method O2 Flow Rate 11/26/24 12:07 Nasal Cannula 2 11/26/24 10:28 Nasal Cannula 2 11/26/24 10:17 Nasal Cannula 2 11/26/24 08:15 Nasal Cannula 1 11/26/24 07:18 11/26/24 05:11 11/26/24 05:10 11/26/24 02:21 Room Air PG Care Time/CCT Total # of Minutes Spent Total Time Spent with Patient: Total time spent is greater than 50% in coordination of care (as documented) at patient's floor/unit and/or counseling patient: Coding Level of Care Code 97271 SUB INP/OBS CARE 2/35MIN Diagnoses Acute exacerbation of chronic low back pain M54.50; G89.29 Hospital-acquired pneumonia J18.9; Y95 Acute respiratory failure with hypoxia J96.01 Uncontrolled type 2 diabetes mellitus with hyperglycemia E11.65 Glycemic state: with hyperglycemia Chest pain R07.9 Adrenal insufficiency E27.40 Morbid obesity with BMI of 40.0-44.9, adult E66.01; Z68.41 SINA (iron deficiency anemia) D50.9 Fluid overload E87.70 (4) Diabetes type 2, uncontrolled Glycemic state: with hyperglycemia Qualified Code(s): E11.65 - Type 2 diabetes mellitus with hyperglycemia
[2024-11-27 06:41] LABS: Anion Gap 2.0 (3-11); Blood Urea Nitrogen 12.0 mg/dl (6-23); Calcium 8.6 mg/dl (8.6-10.3); Carbon Dioxide 33.0 mmol/L (21-32); Chloride 103.0 mmol/L (98-107); Creatinine Clr Calc Pharmacy 138.0 ml/min; Glucose 150.0 mg/dl (70-99(Fasting)); Potassium 4.2 mmol/L (3.5-5.1); Sodium 138.0 mmol/L (136-145)
[2024-11-27 07:08] LABS: Hematocrit (blood only) 36.0 % (42.0-52.0); Hemoglobin 10.8 g/dl (14.0-18.0); Mean Corpuscular Hemoglobin 21.7 pg (25.0-34.0); Mean Corpuscular Volume 72.4 fL (80.0-100.0); Platelet Count 184 K/uL (130-400); RDW Standard Deviation 57.4 fL (36.4-46.3); Red Blood Count 4.97 M/uL (4.70-6.10); White Blood Count 10.29 K/ul (4.8-10.8)
[2024-11-27 07:12] LABS: Anisocytosis Present; Hypochromasia Present; Immature Granulocytes # (auto) 0.10 K/uL (0.01-0.20); Immature Granulocytes % (auto) 1.0 %; Microcytosis Present; Ovalocytes 1+; Polychromasia 1+
[2024-11-27 10:42] LABS: Iron 27.0 mcg/dl (35-175); Total Iron Binding Cap Calc 297.0 mcg/dl (250-450); Transferrin 212.0 mg/dl (200-360); Transferrin (FE) Percent Satur 9.0 % (20-50)
--- NOTE | 2024-11-27 11:08 | Hospitalist Progress Note ---
Date of Service November 27, 2024 Assessment & Plan (1) Acute exacerbation of chronic low back pain: Plan: Placement Pending. Case management following. Backup referrals have been made to [facility] and [facility]. Acute on chronic low back pain Appreciate orthopedic spine consultation and recommendations. The patient has had previous lumbar surgery at an outside institution. MRI scan canceled due to expected artifact from previous instrumentation which will render interpretation useless. No significant response to parenteral steroid therapy or Zosyn. Antibiotics have been switched to Levaquin and vancomycin, day 4. His respira tory status seems to be improving. Sed rate is markedly elevated. This raises the question of underlying infectious process involving his lumbar hardware. Solu-Medrol has been switched to oral hydrocortisone therapy. Steroid therapy is contributing to his leukocytosis along with the suspected pneumonia. Continue pain control measures. Fentanyl patch ordered on November 21 and dosage uptitrated November 23. Doing well on reassessment following this. He has a high narcotic tolerance due to chronic home narcotic use. [facility] was contacted on November 17 but refused to accept the patient in transfer. CT myelogram was ordered but canceled because Eliquis would need to be halted for 3 days prior to imaging. Stopping Eliquis outweigh any potential benefits of obtaining CT myelogram results at this time. Overnight 11/25 did receive a dose of Valium 2 mg p.o. x 1 with improvement of his back spasm. Feels pain is tolerable on reassessment later in the day, although is somewhat anxious about having recurrent spasms Prednisone temporarily switched to 5 mg daily tablets due to availability of 1 mg tablets Had a good night 11/26, no exacerbations Hypoxic respiratory failure 2/2 hospital-acquired pneumonia Bilateral groundglass opacity seen on CT scan indicating probable viral etiology. No sputum production for culture. He has been treated with int ravenous Zosyn for 7 days. Antibiotics were switched to Levaquin and vancomycin for several days and then vancomycin was also discontinued. He is now on oral Levaquin, continue through 11/30/2024. Clinically improved - Supplemental oxygen per nasal cannula to maintain saturation greater than 90%. Oxygen requirements have diminished to 1-2 L/min per nasal cannula. Goal SpO2 90% Type II DM - ADA diet. Sliding scale coverage. Glucose levels have been exacerbated by steroid therapy. Continue basal insulin therapy Chest pain - Noncardiac. Now resolved. No acute EKG changes. No evidence of acute coronary syndrome Adrenal insufficiency, panhypopituitarism - Known panhypopituitarism and adrenal insufficiency. Continue chronic oral steroid therapy. Hydrocortisone dosage was down titrated to his usual dosing on November 20. Remains on home dosing Morbid obesity - Significant weight loss recommended SINA - Ferrous gluconate dosage has been uptitrated, subsequently held for constipation during admission Repeat iron studies obtained, remains with severe iron deficiency anemia She is not septic at reevaluation and has improved appropriately with antibiotics He has benefited from Venofer in the past and would like to receive this as possible. Of note he does have a hives allergy to iron dextran however he reports he has received iron sucrose in the past without any allergy or reaction. Will order Venofer 300 mg daily up to 3 total doses during admission Fluid overload - Suspected due to prolonged hospitalization. He responded well to a dose of parenteral Lasix given on November 20 and November 22. Spot diuresis as needed (2) Hospital-acquired pneumonia: (3) Acute respiratory failure with hypoxia: (4) Diabetes type 2, uncontrolled: (5) Chest pain: (6) Adrenal insufficiency: (7) Morbid obesity with BMI of 40.0-44.9, adult: (8) SINA (iron deficiency anemia): (9) Fluid overload: Admission and Anticipated Discharge Date Admission Date: November 06, 2024 Samson Aragon is seen at the bedside this morning. He reports he actually had a fairly decent night. Pain reasonably well-controlled. He did not have any episodes of spasms or pain exacerbations overnight. Continues to await placement, feels ready for this Does have some constipation this medication regimen. Was concerned about his iron supplement. This has been held while admitted. On review has been iron deficient, does have a history of absorption issues and difficulty tolerating oral iron. He reports he prefers to get and has gotten iron sucrose/Venofer successfully in the past; although had a hives allergy to iron dextran before that. If possible he would like to receive iron sucrose infusions prior to discharge as this has been very helpful to him previously. No other acute concerns at time of visit Physical Exam Physical Exam: General: A&Ox3. NAD. Cooperative. Laying in bed working on his laptop HEENT: Atraumatic, normocephalic. Vision and hearing grossly intact Pulm: CTAB A&P. -wheezes, -rales, -rhonchi. Symmetrical chest rise. No increase in work of breathing. No respiratory distress. +NC Cardiac: RRR, -mrg. Radial pulses intact and symmetrical. Abdominal: Nontender, nondistended, soft. BS present. Extremities: Warm, dry. Mild bilateral lower extremity pitting edema. No acute change in LE strength/sensation Results & Data Results & Data Vital Signs (Past 12 Hours) Vital Signs Temp Pulse Pulse Resp BP Pulse Ox O2 Del Method 11/27/24 07:40 36.6 C 67 18 108/62 98 Nasal Cannula 11/27/24 07:19 Room Air 11/27/24 07:13 76 16 84 L Room Air 11/27/24 07:07 60 11/27/24 04:03 36.6 C 60 14 109/63 94 Room Air 11/26/24 23:41 36.6 C 66 17 115/63 91 Nasal Cannula O2 Flow Rate 11/27/24 07:40 11/27/24 07:19 11/27/24 07:13 11/27/24 07:07 11/27/24 04:03 11/26/24 23:41 1 PG Care Time/CCT Total # of Minutes Spent Total Time Spent with Patient: Total time spent is greater than 50% in coordination of care (as documented) at patient's floor/unit and/or counseling patient: Coding Level of Care Code 30436 SUB INP/OBS CARE 3/50MIN Diagnoses Acute exacerbation of chronic low back pain M54.50; G89.29 Hospital-acquired pneumonia J18.9; Y95 Acute respiratory failure with hypoxia J96.01 Uncontrolled type 2 diabetes mellitus with hyperglycemia E11.65 Glycemic state: with hyperglycemia Chest pain R07.9 Adrenal insufficiency E27.40 Morbid obesity with BMI of 40.0-44.9, adult E66.01; Z68.41 SINA (iron deficiency anemia) D50.9 Fluid overload E87.70 (4) Diabetes type 2, uncontrolled Glycemic state: with hyperglycemia Qualified Code(s): E11.65 - Type 2 diabetes mellitus with hyperglycemia
[2024-11-27 11:13] LABS: Ferritin 44.9 ng/ml (8-388)
[2024-11-27] MEDS: IRON SUCROSE 300 MG in SODIUM CHLORIDE 0.9% 250 ML IV SCH (11:32)
[2024-11-27] MEDS: diazePAM 5 MG/ML 10ML VIAL ONE (18:13)
[2024-11-27] MEDS: diazePAM 5 MG/ML 10ML VIAL IV STA ×2 (18:13→19:34)
[2024-11-27] MEDS: CYCLOBENZAPRINE HCL 5 MG TAB PO STA (18:39)
[2024-11-27] MEDS: HYDROmorphone INJ 0.5 MG/0.5 ML SYR IV STA (18:41)
--- NOTE | 2024-11-27 19:20 | Communication Note ---
Date of Service: November 27, 2024 Severe back pain flare with severe spasms started around 5 pm No relief from hydromorphone IV, valium 2.5 mg IV given 20 min ago Chronically on hydromorphone 4 mg q4h po and also has oral oxycodone on home med list Alert, able to answer questions, in severe distress from pain, crying out and gritting teeth, holding body still and arching back Not sedated at all, lungs CTAB no gurgling Plan: hydromorphone 2 mg IV x 1 valium 2.5 mg IV x 1 has a prn naloxone on chart continuous oximetry discussed with bedside RN
[2024-11-27] MEDS: HYDROmorphone INJ 1 MG/ML SYRINGE IV STA (19:32)
[2024-11-28] MEDS: HYDROmorphone INJ 2 MG/ML SYR/VIAL IV STA (12:00)
--- NOTE | 2024-11-28 18:42 | Hospitalist Progress Note ---
Date of Service November 28, 2024 Assessment & Plan (1) Acute exacerbation of chronic low back pain: Plan: No acute medical issues on 11/28/2024. Patient awaits response(s) from [facility] and [facility] on 11/28/2024. Acute on chronic low back pain Appreciate orthopedic spine consultation and recommendations. The patient has had previous lumbar surgery at an outside institution. MRI scan canceled due to expected artifact from previous instrumentation which will render interpretation useless. No significant response to parenteral steroid therapy or Zosyn. Antibiotics have been switched to Levaquin and vancomycin, day 4. His respiratory status seems to be improving. Sed rate is markedly elevated. This raises the question of underlying infectious process involving his lumbar hardware. Solu-Medrol has been switched to oral hydrocortisone therapy. Steroid therapy is contributing to his leukocytosis along with the suspected pneumonia. Continue pain control measures. Fentanyl patch ordered on November 21 and dosage uptitrated November 23. Doing well on reassessment following this. He has a high narcotic tolerance due to chronic home narcotic use. [facility] was contacted on November 17 but refused to accept the patient in transfer. CT myelogram was ordered but canceled because Eliquis would need to be halted for 3 days prior to imaging. Stopping Eliquis outweigh any potential benefits of obtaining CT myelogram results at this time. Overnight 11/25 did receive a dose of Valium 2 mg p.o. x 1 with improvement of his back spasm. Feels pain is tolerable on reassessment later in the day, al though is somewhat anxious about having recurrent spasms Prednisone temporarily switched to 5 mg daily tablets due to availability of 1 mg tablets Had a good night 11/26, no exacerbations 11/28/24: patient reports that dilaudid 4mg PO q4 prn severe pain does not relieve his lumbago, but dilaudid IV does relieve his lumbago. Subsequently, I ordered dilaudid 2mg IV x 1 dose (11/28/2024, 11:12am). Subsequently, patient reported that his lumbar pain went down from 12 (out of 10) to 6 (out of 10) and stayed that way for approximately 2-3 hours. Hypoxic respiratory failure 2/2 hospital-acquired pneumonia Bilateral groundglass opacity seen on CT scan indicating probable viral etiology. No sputum production for culture. He has been treated with intravenous Zosyn for 7 days. Antibiotics were switched to Levaquin and vancomycin for several days and then vancomycin was also discontinued. He is now on oral Levaquin, continue through 11/30/2024. Clinically improved - Supplemental oxygen per nasal cannula to maintain saturation greater than 90%. Oxygen requirements have diminished to 1-2 L/min per nasal cannula. Goal SpO2 90% Type II DM - ADA diet. Sliding scale coverage. Glucose levels have been exacerbated by steroid therapy. Continue basal insulin therapy Chest pain - Noncardiac. Now resolved. No acute EKG changes. No evidence of acute coronary syndrome Adrenal insufficiency, panhypopituitarism - Known panhypopituitarism and adrenal insufficiency. Continue chronic oral steroid therapy. Hydrocortisone dosage was down titrated to his usual dosing on November 20. Remains on home dosing Morbid obesity - Significant weight loss recommended SINA - Ferrous gluconate dosage has been uptitrated, subsequently held for constipation during admission Repeat iron studies obtained, remains with severe iron deficiency anemia She is not septic at reevaluation and has improved appropriately with antibiotics He has benefited from Venofer in the past and would like to receive this as possible. Of note he does have a hives allergy to iron dextran however he reports he has received iron sucrose in the past without any allergy or reaction. Will order Venofer 300 mg daily up to 3 total doses during admission Fluid overload - Suspected due to prolonged hospitalization. He responded well to a dose of parenteral Lasix given on November 20 and November 22. Spot diuresis as needed (2) Hospital-acquired pneumonia: (3) Acute respiratory failure with hypoxia: (4) Diabetes type 2, uncontrolled: (5) Chest pain: (6) Adrenal insufficiency: (7) Morbid obesity with BMI of 40.0-44.9, adult: (8) SINA (iron deficiency anemia): (9) Fluid overload: Admission and Anticipated Discharge Date Admission Date: November 06, 2024 Subjective "My back hurts all the time. The lower back hurts the most. No falls." Review of Systems Constitutional: Negative for antecedent/coincident fevers, chills, diaphoresis, cough, wheeze, sore throat, hemoptysis, chest pains, palpitations, pleurisy, nausea, vomiting, diarrhea, abdominal pain, pelvic pain, hematemesis, hematochezia, melena, hematuria, dysuria, frequency, urgency, headaches, dizziness, lightheadedness, visual changes, hearing changes, weakness, falls, syncope, trauma, travel history, sick contacts, or food/drug ingestions novel or new. All other review of systems are reported as negative by the patient on 11/28/2024. Physical Exam Constitutional: General: Comfortable, cooperative, coherent. Wide awake and alert. Not confused, lethargic, or obtunded. Patient speaks in complete, fluent, and articulate sentences without pause, interruption, cough, or wheeze. HEENT: Normocephalic, atraumatic. Pupils equally round and reactive to light. No nystagmus, gaze paresis, anisocoria, miosis, mydriasis, hyphema, scleral injection, conjunctivitis, or pterygium. No otorrhea. No pharyngeal erythema, edema, or discharge. Neck: Supple, no stridor, bruit, goiter, or hepato-jugular reflux. Jugular venous pressure is estimated to be 3 cm above the sternal angle of Jose, which in turn, is 5 cm above the level of the right atrium; with jugular venous pressure estimated to be 8 cm, then, there is no jugular venous distention on 11/28/2024. Lymphatics: No cervical (anterior/posterior), supraclavicular, infraclavicular, axillary, epitrochlear, or inguinal adenopathy. Chest: Symmetric rise and fall with respirations. Non-tender to palpation. Lungs: Clear to auscultation and percussion. No audible expiratory wheeze, egophony, pectoriloquy, increase in tactile fremitus, or flatness/dullness to percussion at the bases. Heart: RRR. S1 and S2 noted. No S3 or S4 summation gallop. No tripartite friction rub. Grade II/ early systolic murmur @ LLSB without radiation to the carotids, axilla, or back, and which remains invariant in regards to the respiratory cycle. Abdomen: Soft, non-tender, non-distended. No rebound, guarding, Camargo's sign, or organomegaly. Bowel sounds auscultated in all 4 quadrants. Extremities: No clubbing, cyanosis, or edema in upper extremities or lower extremities bilaterally. 2+ pedal pulses bilaterally. Skin: No decubitus ulcer or enanthem. Genito-urinary: No urethral discharge. No scherer catheter. Neurology: Alert and oriented in regards to person, place, time, and situation. DTR+. 5/5 motor strength in all 4 extremities, both proximally and distally. No myoclonus, tremors, or tics. Psychiatry: No homicidal ideation. No suicidal ideation. No flat affect; smiles appropriately. Results & Data Results & Data Vital Signs (Past 12 Hours) Vital Signs Temp Pulse Pulse Resp BP Pulse Ox O2 Del Method 11/28/24 15:31 36.6 C 58 L 120/66 93 Nasal Cannula 11/28/24 13:10 69 11/28/24 13:00 85 11/28/24 10:38 36.4 C L 51 L 18 126/70 98 Room Air 11/28/24 07:38 36.3 C L 51 L 115/66 98 Room Air 11/28/24 07:13 58 L 16 97 Nasal Cannula 11/28/24 07:00 Room Air O2 Flow Rate 11/28/24 15:31 2 11/28/24 13:10 11/28/24 13:00 11/28/24 10:38 11/28/24 07:38 11/28/24 07:13 2 11/28/24 07:00 Laboratory Results Abnormal lab results 11/27/24 11/28/24 11/28/24 Range/Units 20:39 07:37 11:25 POC Glucose 100 H 124 H 104 H (70-99) mg/dl 11/28/24 Range/Units 16:18 POC Glucose 162 H (70-99) mg/dl PG Care Time/CCT Total # of Minutes Spent Total Time Spent with Patient: Total time spent is greater than 50% in coordination of care (as documented) at patient's floor/unit and/or counseling patient: Coding Level of Care Code 80400 SUB INP/OBS CARE 2/35MIN Diagnoses Acute exacerbation of chronic low back pain M54.50; G89.29 Hospital-acquired pneumonia J18.9; Y95 Acute respiratory failure with hypoxia J96.01 Uncontrolled type 2 diabetes mellitus with hyperglycemia E11.65 Glycemic state: with hyperglycemia Chest pain R07.9 Adrenal insufficiency E27.40 Morbid obesity with BMI of 40.0-44.9, adult E66.01; Z68.41 SINA (iron deficiency anemia) D50.9 Fluid overload E87.70 (4) Diabetes type 2, uncontrolled Glycemic state: with hyperglycemia Qualified Code(s): E11.65 - Type 2 diabetes mellitus with hyperglycemia
--- NOTE | 2024-11-29 19:54 | Hospitalist Progress Note ---
Date of Service November 29, 2024 Assessment & Plan (1) Acute exacerbation of chronic low back pain: Plan: No acute medical issues on 11/28/2024 or on 11/29/2024. Patient awaits response(s) from [facility] and [facility] on 11/28/2024. Acute on chronic low back pain Appreciate orthopedic spine consultation and recommendations. The patient has had previous lumbar surgery at an outside institution. MRI scan canceled due to expected artifact from previous instrumentation which will render interpretation useless. No significant response to parenteral steroid therapy or Zosyn. Antibiotics have been switched to Levaquin and vancomycin, day 4. His respiratory status seems to be improving. Sed rate is markedly elevated. This raises the question of underlying infectious process involving his lumbar hardware. Solu-Medrol has been switched to oral hydrocortisone therapy. Steroid therapy is contributing to his leukocytosis along with the suspected pneumonia. Continue pain control measures. Fentanyl patch ordered on November 21 and dosage uptitrated November 23. Doing well on reassessment following this. He has a high narcotic tolerance due to chronic home narcotic use. was contacted on November 17 but refused to accept the patient in transfer. CT myelogram was ordered but canceled because Eliquis would need to be halted for 3 days prior to imaging. Stopping Eliquis outweigh any potential benefits of obtaining CT myelogram results at this time. Overnight 11/25 did receive a dose of Valium 2 mg p.o. x 1 with improvement of his back spasm. Feels pain is tolerable on reassessment later in the day, although is somewhat anxious about having recurrent spasms Prednisone temporarily switched to 5 mg daily tablets due to availability of 1 mg tablets Had a good night 11/26, no exacerbations 11/28/24: patient reports that dilaudid 4mg PO q4 prn severe pain does not relieve his lumbago, but dilaudid IV does relieve his lumbago. Subsequently, I ordered dilaudid 2mg IV x 1 dose (11/28/2024, 11:12am). Subsequently, patient reported that his lumbar pain went down from 12 (out of 10) to 6 (out of 10) and stayed that way for approximately 2-3 hours. 11/29/24: patient reports muscle spasms of the lower back. Subsequently, I ordered diazepam 5mg PO x 1 dose (11/29/2024, 3:27pm). Subsequently, patient reported that his muscle spasms of the lower back RESOLVED completely. Hypoxic respiratory failure 2/2 hospital-acquired pneumonia Bilateral groundglass opacity seen on CT scan indicating probable viral etiology. No sputum production for culture. He has been treated with intravenous Zosyn for 7 days. Antibiotics were switched to Levaquin and vancomycin for several days and then vancomycin was also discontinued. He is now on oral Levaquin, continue through 11/30/2024. Clinically improved - Supplemental oxygen per nasal cannula to maintain saturation greater than 90%. Oxygen requirements have diminished to 1-2 L/min per nasal cannula. Goal SpO2 90% Type II DM - ADA diet. Sliding scale coverage. Glucose levels have been exacerbated by steroid therapy. Continue basal insulin therapy Chest pain - Noncardiac. Now resolved. No acute EKG changes. No evidence of acute coronary syndrome Adrenal insufficiency, panhypopituitarism - Known panhypopituitarism and adrenal insufficiency. Continue chronic oral steroid therapy. Hydrocortisone dosage was down titrated to his usual dosing on November 20. Remains on home dosing Morbid obesity - Significant weight loss recommended SINA - Ferrous gluconate dosage has been uptitrated, subsequently held for constipation during admission Repeat iron studies obtained, remains with severe iron deficiency anemia She is not septic at reevaluation and has improved appropriately with antibiotics He has benefited from Venofer in the past and would like to receive this as possible. Of note he does have a hives allergy to iron dextran however he reports he has received iron sucrose in the past without any allergy or reaction. Will order Venofer 300 mg daily up to 3 total doses during admission Fluid overload - Suspected due to prolonged hospitalization. He responded well to a dose of parenteral Lasix given on November 20 and November 22. Spot diuresis as needed (2) Hospital-acquired pneumonia: (3) Acute respiratory failure with hypoxia: (4) Diabetes type 2, uncontrolled: (5) Chest pain: (6) Adrenal insufficiency: (7) Morbid obesity with BMI of 40.0-44.9, adult: (8) SINA (iron deficiency anemia): (9) Fluid overload: Admission and Anticipated Discharge Date Admission Date: November 06, 2024 Subjective "My back hurts all the time. The lower back hurts the most. No falls." Review of Systems Constitutional: Negative for antecedent/coincident fevers, chills, diaphoresis, cough, wheeze, sore throat, hemoptysis, chest pains, palpitations, pleurisy, nausea, vomiting, diarrhea, abdominal pain, pelvic pain, hematemesis, hematochezia, melena, hematuria, dysuria, frequency, urgency, headaches, dizziness, lightheadedness, visual changes, hearing changes, weakness, falls, syncope, trauma, travel history, sick contacts, or food/drug ingestions novel or new. All other review of systems are reported as negative by the patient on 11/29/2024. Physical Exam Constitutional: General: Comfortable, cooperative, coherent. Wide awake and alert. Not confused, lethargic, or obtunded. Patient speaks in complete, fluent, and articulate sentences without pause, interruption, cough, or wheeze. HEENT: Normocephalic, atraumatic. Pupils equally round and reactive to light. No nystagmus, gaze paresis, anisocoria, miosis, mydriasis, hyphema, scleral injection, conjunctivitis, or pterygium. No otorrhea. No pharyngeal erythema, edema, or discharge. Neck: Supple, no stridor, bruit, goiter, or hepato-jugular reflux. Jugular venous pressure is estimated to be 3 cm above the sternal angle of Jose, which in turn, is 5 cm above the level of the right atrium; with jugular venous pressure estimated to be 8 cm, then, there is no jugular venous distention on 11/29/2024. Lymphatics: No cervical (anterior/posterior), supraclavicular, infraclavicular, axillary, epitrochlear, or inguinal adenopathy. Chest: Symmetric rise and fall with respirations. Non-tender to palpation. Lungs: Clear to auscultation and percussion. No audible expiratory wheeze, egophony, pectoriloquy, increase in tactile fremitus, or flatness/dullness to percussion at the bases. Heart: RRR. S1 and S2 noted. No S3 or S4 summation gallop. No tripartite friction rub. Grade II/ early systolic murmur @ LLSB without radiation to the carotids, axilla, or back, and which remains invariant in regards to the respiratory cycle. Abdomen: Soft, non-tender, non-distended. No rebound, guarding, Camargo's sign, or organomegaly. Bowel sounds auscultated in all 4 quadrants. Extremities: No clubbing, cyanosis, or edema in upper extremities or lower extremities bilaterally. 2+ pedal pulses bilaterally. Skin: No decubitus ulcer or enanthem. Genito-urinary: No urethral discharge. No scherer catheter. Neurology: Alert and oriented in regards to person, place, time, and situation. DTR+. 5/5 motor strength in all 4 extremities, both proximally and distally. No myoclonus, tremors, or tics. Psychiatry: No homicidal ideation. No suicidal ideation. No flat affect; smiles appropriately. Results & Data Results & Data Vital Signs (Past 12 Hours) Vital Signs Temp Pulse Pulse Resp BP Pulse Ox O2 Del Method 11/29/24 15:12 36.5 C 77 18 113/69 92 Nasal Cannula 11/29/24 13:00 65 11/29/24 10:58 36.4 C L 61 18 105/63 95 Nasal Cannula O2 Flow Rate 11/29/24 15:12 1 11/29/24 13:00 11/29/24 10:58 1 Laboratory Results Abnormal lab results 11/28/24 11/29/24 11/29/24 Range/Units 20:04 11:05 16:18 POC Glucose 147 H 135 H 116 H (70-99) mg/dl PG Care Time/CCT Total # of Minutes Spent Total Time Spent with Patient: Total time spent is greater than 50% in coordination of care (as documented) at patient's floor/unit and/or counseling patient: Coding Level of Care Code 52497 SUB INP/OBS CARE 2/35MIN Diagnoses Acute exacerbation of chronic low back pain M54.50; G89.29 Hospital-acquired pneumonia J18.9; Y95 Acute respiratory failure with hypoxia J96.01 Uncontrolled type 2 diabetes mellitus with hyperglycemia E11.65 Glycemic state: with hyperglycemia Chest pain R07.9 Adrenal insufficiency E27.40 Morbid obesity with BMI of 40.0-44.9, adult E66.01; Z68.41 SINA (iron deficiency anemia) D50.9 Fluid overload E87.70 (4) Diabetes type 2, uncontrolled Glycemic state: with hyperglycemia Qualified Code(s): E11.65 - Type 2 diabetes mellitus with hyperglycemia
--- NOTE | 2024-11-30 08:35 | Pain Management Consultation ---
Date of Consultation November 30, 2024 Assessment & Plan (1) Acute exacerbation of chronic low back pain: (2) Back spasm: (3) Opiate dependence, continuous: (4) Chronic osteomyelitis of spine: (5) Chronic anticoagulation: (6) Diabetes type 2, uncontrolled: Glycemic state: with hyperglycemia Qualified Code(s): E11.65 - Type 2 diabetes mellitus with hyperglycemia (7) Panhypopituitarism: Plan 1. Due to his recent use of hydromorphone for breakthrough pain we will recommend adjusting fentanyl to 75 mcg-orders written 2. Will recommend patient utilize diazepam 5 mg twice daily as needed for breakthrough spasm. Would recommend reserving IV diazepam for intractable spasm not well-controlled with oral diazepam initially 3. Continue with p.o. hydromorphone for breakthrough pain and reserve IV hydromorphone for intractable pain not well-controlled with above. Patient has fairly significant past medical history of significant opiate dependency and tolerance. We discussed with patient the need to move away from IV benzodiazepines and IV opiate therapy for discharge planning and he verbalized understanding. 4. Patient is a poor candidate for interventional treatment or consideration of spinal cord stimulator/intrathecal opiate therapy given his comorbid medical conditions as the patient had questions regarding these treatment pathways. Should he wish to consider these as alternative treatment options, would recommend evaluation at tertiary care center Thank you for allowing us to participate in the care of Mr. Hughes. History of Present Illness Reason for Consultation: Intractable low back pain Requesting Physician: Bruno Anderson MD Attending Physician: Bruno Anderson MD, PhD History of Present Illness Mr. Hughes is a 64-year-old white male who was admitted 24 days ago for acute on chronic low back pain with impaired functional mobility. The patient has history of extensive thoracolumbar spine surgical history with multiple surgical procedures and a prior history of wound infection on chronic Bactrim suppression daily. Patient has been on chronic opiate therapy for greater than 20 years in the outpatient setting. Patient reports that his pain is 100% axial in the lumbosacral region without radiculopathy. He does have peripheral neuropathy but he denies radicular pattern to his pain. He reports frequent spasms with movement which contributes to intractable severe sharp pain which he rates a 10/10. His pain is a 6/10 at its best. The patient has been on multiple oral opiate therapy in the outpatient setting with varying degrees of benefit previously on significantly high doses of morphine. Patient was reportedly admitted due to some complaints of chest pain and he was concerned about recurrent PE which was unfounded upon his admission. The patient has some chronic lower extremity weakness of left leg greater than right leg and ambulatory dysfunction is a byproduct relying on a walker at all times. He reports that any movement out of bed and or transferring contributes to significant increase in pain. The patient has been on multiple opiates upon this admission and more recently transition to fentanyl currently at 50 mcg dosing. He finds oral and IV diazepam to be moderately helpful at diminishing spasms when he experiences the acute severe spasms. He remains on chronic baclofen 20 mg 3 times daily. He has also tried multiple other muscle relaxers with varying degrees of benefit most recently he was utilizing Robaxin chronically along with baclofen. Patient indicates moderate benefit from use of IV hydromorphone lasting for a few hours and minimal benefit from oral hydromorphone for breakthrough pain. Patient is also actively being followed by wound upon this admission due to gluteal skin breakdown. Patient also remains on chronic steroid therapy due to his history of adrenal insufficiency. Patient also utilizes pregabalin 150 mg 4 times daily for his peripheral neuropathy complaints. He further remains on chronic anticoagulation with Eliquis 5 mg twice daily in the setting of PE. Patient will continue on oral Levaquin through 11/30/2024. Patient reported no further constitutional complaints. Plan of care discussed with Dr. Nette Nascimento. Pain Assessment Full Body Front + Back: 2 1. Axial lumbosacral region pain Pain scale - at its best (0-10): 6 Pain scale - at its worst (0-10): 10 Allergies Allergy/AdvReac Type Severity Reaction Status Date / Time iron dextran complex Allergy Severe HIVES Verified 09/19/24 15:08 cyclobenzaprine Allergy Intermediate N/V Verified 09/19/24 15:08 Home Medications Medication Instructions Recorded Confirmed Type aspirin 81 mg tablet,delayed 81 mg PO HS 06/17/18 11/06/24 History release Wheeled Walker #1 ea 03/24/23 09/19/24 Rx syringe with needle, safety 3 mL #100 ea 05/12/23 09/19/24 Rx 25 gauge x 1" (BD Integra Syringe) mecobalamin (vitamin B12) 1,000 5,000 mcg PO QPM 06/25/23 11/06/24 History mcg chewable tablet apixaban 5 mg tablet (Eliquis) 5 mg PO BID 90 days #180 tabs 10/14/23 11/06/24 Rx mirtazapine 15 mg tablet 7.5 mg PO HS 10/22/23 11/06/24 History acetaminophen 325 mg tablet 650 mg (2 x 325 mg) PO Q4H PRN 11/02/23 11/06/24 Rx fever or pain #0 tabs polyethylene glycol 3350 17 gram 17 g PO BID PRN Constipation 11/23/23 11/06/24 History oral powder packet (Miralax) baclofen 20 mg tablet 20 mg PO TID 90 days #270 tabs 12/22/23 11/06/24 Rx spironolactone 25 mg tablet 25 mg PO BID #180 tabs 12/22/23 11/06/24 Rx (Aldactone) blood sugar diagnostic (OneTouch #100 ea 04/18/24 09/19/24 Rx Ultra Test strips) blood-glucose meter (OneTouch #1 ea 04/18/24 09/19/24 Rx Ultra2 Meter) lancets 30 gauge (OneTouch #100 ea 04/18/24 09/19/24 Rx UltraSoft 2 Lancet) ferrous gluconate 324 mg (37.5 mg 324 mg PO .every other day #60 tabs 04/21/24 11/06/24 Rx iron) tablet metformin 500 mg tablet,extended 1,000 mg (2 x 500 mg) PO BID #360 07/08/24 11/06/24 Rx release 24 hr tabs liothyronine 5 mcg tablet 5 mcg PO QPM #90 tabs 08/03/24 11/06/24 Rx hydrocortisone 5 mg tablet 10 mg (2 x 5 mg) PO TID #180 tabs 08/16/24 11/06/24 Rx atorvastatin 20 mg tablet 20 mg PO HS #90 tabs 08/29/24 11/06/24 Rx prednisone 1 mg tablet 1 mg PO TID #270 tabs 08/29/24 11/06/24 Rx testosterone cypionate 200 mg/mL 150 mg (0.75 mL) IM Q7D 90 days 09/08/24 11/06/24 Rx intramuscular oil #9.75 mL glipizide 5 mg tablet 5 mg PO BID #120 tabs 09/12/24 11/06/24 Rx levothyroxine 200 mcg tablet 200 mcg PO DAILYBB #90 tabs 09/12/24 11/06/24 Rx pregabalin 150 mg capsule 150 mg PO QID 30 days #120 caps 09/19/24 11/06/24 Rx levothyroxine 50 mcg tablet 50 mcg PO DAILYBB #90 tabs 09/26/24 11/06/24 Rx sulfamethoxazole 400 1 tab PO DAILY #90 tabs 09/26/24 11/06/24 Rx mg-trimethoprim 80 mg tablet semaglutide 1 mg/dose (4 mg/3 mL) 1 mg (0.75 mL) subcut Q7D #3 mL 10/17/24 11/06/24 Rx subcutaneous pen injector sertraline 100 mg tablet 100 mg PO TID #180 tabs 10/17/24 11/06/24 Rx lansoprazole 30 mg capsule,delayed 30 mg PO QAM #90 caps 10/18/24 11/06/24 Rx release oxycodone 5 mg tablet 10 mg (2 x 5 mg) PO Q6H PRN pain 10/18/24 11/06/24 Rx #150 tabs fentanyl 50 mcg/hr transdermal 1 patch transdermal Q3D #5 ea 11/25/24 Rx patch hydromorphone 2 mg tablet 4 mg (2 x 2 mg) PO Q4H PRN pain 11/25/24 Rx (Dilaudid) #42 tabs levofloxacin 750 mg tablet 750 mg PO DAILY@1100 4 days #4 tabs 11/25/24 Rx naloxone 4 mg/actuation nasal 1 spray intranasal Q3M PRN opioid 11/25/24 Rx spray (Narcan) overdose #2 ea Pain History Pain Intensity Pain scale - at its best (0-10): 6 Pain scale - at its worst (0-10): 10 Patient History Medical History Pulmonary embolism Diabetic ulcer of toe of right foot Chronic osteomyelitis of spine History of recurrent deep vein thrombosis IVC filter Fusion of spine, thoracolumbar region T5-S1 Nocturnal enuresis Micronutrients deficiency Deep vein thrombosis LT. ankle and RT upper arm>only taking aspirin currently History of anesthesia problem "remembers being aware and hearing talking and conversations during his spinal surgery at [facility]" Hyperlipidemia Hypertension History of COVID-19 05/2021, home test, not hosp; headache, weakness, fatigue, no appetite, fever, diarrhea>resolved. Sleep apnea hx cpap>bipap>now not using anything; new study scheduled w/dr dean in 06/2022 Osteomyelitis Spinal stenosis Osteoporosis Status post gamma knife treatment pituitary gland Back pain chronic Pituitary tumor hx Surgical History Hx of tonsillectomy Hx of colonoscopy History of lumbar fusion T5-S1 History of cholecystectomy Family History Sister Breast cancer Multiple sclerosis Father Colorectal cancer Myocardial infarction Brother Myocardial infarction Prostate cancer Pancreatitis Denies family history of Ovarian cancer Social History Smoking Status: Never smoker Second Hand Exposure: Yes (as a child-father smoked); Do You Dip or Chew Tobacco: No; Hx Alcohol Use: No Hx Substance Use: No Preferred Language: American Communication Ability: Effective Visual Impairment: No Limitations Hearing Ability: Normal Advertising Sales Manager Required: No Beliefs That Will Affect Care: None marital status: Current Living Situation: Spouse current occupational status: other current occupation: Disabled How many Children do You have: 1 Feels Safe at Home: Yes Childhood Exposure to Second-Hand Smoke: Yes Diet: regular caffeine: Yes during the past year weight has: decreased > 10 lbs Dental Care, Regularly: No Physical Activity Frequency: Does not Exercise Seatbelt Use: always Sunscreen Use: Yes Assistive Devices: Walker Physical Exam 2 Physical Exam: General: Patient sitting up on his computer upon entering the room in no acute distress. Speech and thought process appropriate. Mood and affect appropriate. Cognition intact. Head: Normocephalic and atraumatic. ENT: No evidence of nasal or oral mucosal lesions. Mucous membranes are moist. Poor dentition is noted. Eyes: Pupils equal round reactive to light. Neck: Supple without adenopathy and full range of motion. Chest: Nontender to palpation of the costosternal junction. Abdomen: Soft and nondistended. No organomegaly. Bowel sounds active. Back/spine: Patient deferred logrolling for examination as he is currently comfortable and is concerned about inducing spasm with movement. Lower extremities: Patient reported intact sensation distally. Strength testing was 4+/5 with dorsiflexion, plantarflexion and EHL testing. Strength testing was 4/5 with hip flexion with slight increase in axial pain noted with some questionable effort. Patient has thickening of the skin across the dorsal aspect of the toes and feet. Neurologic: Cranial nerves grossly intact. Ambulatory function not witnessed. Results (Pain Clinic) [phone] Scan Report Patient: MYLA HUGHES Admit Date: 11/06/24 MR#: [id number] Address[address]: [address] Acct ID:[id number] Address2: Date: 1960 [facility] Zip: [place] [address] Age: 64 Location: ED Sex: M Room/Bed: Att Phy: Diagnosis: WEAKNESS, SOB Sandy Phy: David Jacob DO Service Date: 11/06/24 Fam Phy: Interpreting Phy: Tello Jensen MDAdmit Phy: Ordering Phy: Bradly Roque MD cc: ~ CT LUMBAR SPINE WITHOUT CONTRAST: HISTORY: PAIN TECHNIQUE: Noncontrast CT examination of the lumbar spine is performed. Coronal and sagittal reformats were created. COMPARISON: Lumbar spine CT April 19, 2015. FINDINGS: LUMBAR SPINE: Limited assessment due to severe osteopenia and extensive streak artifact arising from the thoracolumbar spine fusion hardware. Within this limitation: Redemonstrated posterior instrumented fusion at T11-S1 and L4-5 laminectomies. Redemonstration of compression changes of all levels of the included spinal vertebral bodies without significant change compared to the 2014 examination. No significant retropulsion is identified Again seen is L4 kyphoplasty. No definite new vertebral body height loss. There is no significant spondylolisthesis. Usual lumbar lordosis is preserved. Multilevel degenerative changes characterized by disc space loss, broad based disc bulge/herniations with endplate changes of the vertebral bodies with small marginal osteophytes as well as bilateral facet hypertrophy and thickening of the ligamentum flavum resulting in crowding of the subarticular recesses and narrowing of neural foramina worst at L4-S1. As before, in the lower lumbar spine at L4-S1 there are very large disc osteophyte complexes resulting in severe spinal canal and neural foraminal narrowing. And also in the upper lumbar spine there is diffuse tricompartmental spinal canal and neural foraminal narrowing, though poorly evaluated IVC filter IMPRESSION: Limited assessment due to severe osteopenia and extensive streak artifact arising from the thoracolumbar spine fusion hardware. Within this limitation: Redemonstrated posterior instrumented fusion at T11-S1 and L4-5 laminectomies. Redemonstration of compression changes of all levels of the included spinal vertebral bodies without significant change compared to the 2015 examination. No significant retropulsion is identified Also redemonstrated are advanced multilevel degenerative changes of the lumbar spine with very large disc osteophyte complex resulting in diffuse tricompartmental spinal canal stenosis and neural foraminal compromise Electronically signed by Tello Jensen 11-06-2024 6:43 PM Dictated: 11/06/24 1819 Transcribed:
[2024-11-30] MEDS: diazePAM 5 MG/ML 10ML VIAL IV STA (13:34)
[2024-11-30] MEDS: HYDROmorphone INJ 1 MG/ML SYRINGE IV STA (15:25)
[2024-11-30 16:36] VITALS: RESP 16
[2024-11-30] MEDS: HYDROmorphone INJ 2 MG/ML SYR/VIAL IV STA (19:01)
--- NOTE | 2024-11-30 21:31 | Hospitalist Progress Note ---
Date of Service November 30, 2024 Assessment & Plan (1) Acute exacerbation of chronic low back pain: Plan: No acute medical issues on 11/28/2024 or on 11/29/2024 or on 11/30/2024. Patient awaits insurance authorization of [facility], which has accepted patient, pending insurance authorization. Acute on chronic low back pain Appreciate orthopedic spine consultation and recommendations. The patient has had previous lumbar surgery at an outside institution. MRI scan canceled due to expected artifact from previous instrumentation which will render interpretation useless. No significant response to parenteral steroid therapy or Zosyn. Antibiotics have been switched to Levaquin and vancomycin, day 4. His respiratory status seems to be improving. Sed rate is markedly elevated. This raises the question of underlying infectious process involving his lumbar hardware. Solu-Medrol has been switched to oral hydrocortisone therapy. Steroid therapy is contributing to his leukocytosis along with the suspected pneumonia. Continue pain control measures. Fentanyl patch ordered on November 21 and dosage uptitrated November 23. Doing well on reassessment following this. He has a high narcotic tolerance due to chronic home narcotic use. [facility] was contacted on November 17 but refused to accept the patient in transfer. CT myelogram was ordered but canceled because Eliquis would need to be halted for 3 days prior to imaging. Stopping Eliquis outweigh any potential benefits of obtaining CT myelogram results at this time. Overnight 11/25 did receive a dose of Valium 2 mg p.o. x 1 with improvement of his back spasm. Feels pain is tolerable on reassessment later in the day, although is somewhat anxious about having recurrent spasms Prednisone temporarily switched to 5 mg daily tablets due to availability of 1 mg tablets Had a good night 11/26, no exacerbations 11/28/24: patient reports that dilaudid 4mg PO q4 prn severe pain does not relieve his lumbago, but dilaudid IV does relieve his lumbago. Subsequently, I ordered dilaudid 2mg IV x 1 dose (11/28/2024, 11:12am). Subsequently, patient reported that his lumbar pain went down from 12 (out of 10) to 6 (out of 10) and stayed that way for approximately 2-3 hours. 11/29/24: patient reports muscle spasms of the lower back. Subsequently, I ordered diazepam 5mg PO x 1 dose (11/29/2024, 3:27pm). Subsequently, patient reported that his muscle spasms of the lower back RESOLVED completely. 11/30/24: patient reported 12/10 lower back pains. Subsequently, I ordered dilaudid 2mg IV x 1 dose (11/30/2024, 7:20pm). Subsequently, patient reported that his 12/10 lower back pains RESOLVED completely. Hypoxic respiratory failure 2/2 hospital-acquired pneumonia Bilateral groundglass opacity seen on CT scan indicating probable viral etiology. No sputum production for culture. He has been treated with intravenous Zosyn for 7 days. Antibiotics were switched to Levaquin and vancomycin for several days and then vancomycin was also discontinued. He is now on oral Levaquin, continue through 11/30/2024. Clinically improved - Supplemental oxygen per nasal cannula to maintain saturation greater than 90%. Oxygen requirements have diminished to 1-2 L/min per nasal cannula. Goal SpO2 90% Type II DM - ADA diet. Sliding scale coverage. Glucose levels have been exacerbated by steroid therapy. Continue basal insulin therapy Chest pain - Noncardiac. Now resolved. No acute EKG changes. No evidence of acute coronary syndrome Adrenal insufficiency, panhypopituitarism - Known panhypopituitarism and adrenal insufficiency. Continue chronic oral steroid therapy. Hydrocortisone dosage was down titrated to his usual dosing on November 20. Remains on home dosing Morbid obesity - Significant weight loss recommended SINA - Ferrous gluconate dosage has been uptitrated, subsequently held for constipation during admission Repeat iron studies obtained, remains with severe iron deficiency anemia She is not septic at reevaluation and has improved appropriately with antibiotics He has benefited from Venofer in the past and would like to receive this as possible. Of note he does have a hives allergy to iron dextran however he reports he has received iron sucrose in the past without any allergy or reaction. Will order Venofer 300 mg daily up to 3 total doses during admission Fluid overload - Suspected due to prolonged hospitalization. He responded well to a dose of parenteral Lasix given on November 20 and November 22. Spot diuresis as needed (2) Hospital-acquired pneumonia: (3) Acute respiratory failure with hypoxia: (4) Diabetes type 2, uncontrolled: (5) Chest pain: (6) Adrenal insufficiency: (7) Morbid obesity with BMI of 40.0-44.9, adult: (8) SINA (iron deficiency anemia): (9) Fluid overload: Admission and Anticipated Discharge Date Admission Date: November 06, 2024 Subjective "I feel ok right now. When am I gonna go to [facility] and get my rehab?" Review of Systems Constitutional: Negative for antecedent/coincident fevers, chills, diaphoresis, cough, wheeze, sore throat, hemoptysis, chest pains, palpitations, pleurisy, nausea, vomiting, diarrhea, abdominal pain, pelvic pain, hematemesis, hematochezia, melena, hematuria, dysuria, frequency, urgency, headaches, dizziness, lightheadedness, visual changes, hearing changes, weakness, falls, syncope, trauma, travel history, sick contacts, or food/drug ingestions novel or new. All other review of systems are reported as negative by the patient on 11/30/2024. Physical Exam Constitutional: General: Comfortable, cooperative, coherent. Wide awake and alert. Not confused, lethargic, or obtunded. Patient speaks in complete, fluent, and articulate sentences without pause, interruption, cough, or wheeze. HEENT: Normocephalic, atraumatic. Pupils equally round and reactive to light. No nystagmus, gaze paresis, anisocoria, miosis, mydriasis, hyphema, scleral injection, conjunctivitis, or pterygium. No otorrhea. No pharyngeal erythema, edema, or discharge. Neck: Supple, no stridor, bruit, goiter, or hepato-jugular reflux. Jugular venous pressure is estimated to be 3 cm above the sternal angle of Jose, which in turn, is 5 cm above the level of the right atrium; with jugular venous pressure estimated to be 8 cm, then, there is no jugular venous distention on 11/30/2024. Lymphatics: No cervical (anterior/posterior), supraclavicular, infraclavicular, axillary, epitrochlear, or inguinal adenopathy. Chest: Symmetric rise and fall with respirations. Non-tender to palpation. Lungs: Clear to auscultation and percussion. No audible expiratory wheeze, egophony, pectoriloquy, increase in tactile fremitus, or flatness/dullness to percussion at the bases. Heart: RRR. S1 and S2 noted. No S3 or S4 summation gallop. No tripartite friction rub. Grade II/ early systolic murmur @ LLSB without radiation to the carotids, axilla, or back, and which remains invariant in regards to the respiratory cycle. Abdomen: Soft, non-tender, non-distended. No rebound, guarding, Camargo's sign, or organomegaly. Bowel sounds auscultated in all 4 quadrants. Extremities: No clubbing, cyanosis, or edema in upper extremities or lower extremities bilaterally. 2+ pedal pulses bilaterally. Skin: No decubitus ulcer or enanthem. Genito-urinary: No urethral discharge. No scherer catheter. Neurology: Alert and oriented in regards to person, place, time, and situation. DTR+. 5/5 motor strength in all 4 extremities, both proximally and distally. No myoclonus, tremors, or tics. Psychiatry: No homicidal ideation. No suicidal ideation. No flat affect; smiles appropriately. Results & Data Results & Data Vital Signs (Past 12 Hours) Vital Signs Temp Pulse Resp BP BP Pulse Ox O2 Del Method 11/30/24 19:45 Room Air 11/30/24 19:40 57 L 16 118/69 98 Room Air 11/30/24 19:31 56 L 16 90 Room Air 11/30/24 16:48 Room Air, Nasal Cannula 11/30/24 16:35 36.9 C 69 16 137/76 92 Room Air 11/30/24 11:13 36.7 C 86 18 97/66 L 94 Room Air Laboratory Results Abnormal lab results 11/30/24 11/30/24 11/30/24 Range/Units 07:17 11:11 16:36 POC Glucose 105 H 114 H 104 H (70-99) mg/dl PG Care Time/CCT Total # of Minutes Spent Total Time Spent with Patient: Total time spent is greater than 50% in coordination of care (as documented) at patient's floor/unit and/or counseling patient: Coding Level of Care Code 58778 SUB INP/OBS CARE 2/35MIN Diagnoses Acute exacerbation of chronic low back pain M54.50; G89.29 Hospital-acquired pneumonia J18.9; Y95 Acute respiratory failure with hypoxia J96.01 Uncontrolled type 2 diabetes mellitus with hyperglycemia E11.65 Glycemic state: with hyperglycemia Chest pain R07.9 Adrenal insufficiency E27.40 Morbid obesity with BMI of 40.0-44.9, adult E66.01; Z68.41 SINA (iron deficiency anemia) D50.9 Fluid overload E87.70 (4) Diabetes type 2, uncontrolled Glycemic state: with hyperglycemia Qualified Code(s): E11.65 - Type 2 diabetes mellitus with hyperglycemia
[2024-12-01] MEDS: HYDROmorphone INJ 2 MG/ML SYR/VIAL IV PRN (01:42)
[2024-12-01 07:25] VITALS: BP 110/57; PULSE 50; TEMP 97.7; O2SAT 100
--- NOTE | 2024-12-01 10:43 | Discharge Summary ---
Discharge Summary Date of Service December 01, 2024 Principal Dx & Hospital Course #1 = Principal Diagnosis (1) Acute exacerbation of chronic low back pain: No acute medical issues on 11/28/2024 - 12/01/2024 Patient received insurance authorization of [facility] on 12/01/2024, which accepted patient on 11/30/2024. Patient was subsequently discharged to [facility] on 11/30/2024. 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, now on testosterone 150mg IM weekly, prednisone 1mg PO tid, hydrocortisone 10mg PO tid, synthroid 50ug PO daily and liothyronine 5ug PO qhs, insulin-dependent DM2 with HbA1c 7.8% (11/14/2024, 9:58am) on lantus 8 units SQ daily, glipizide 5mg PO bid, and metformin 500mg PO bid, and chronic lower back pain (maintained on baclofen 20mg PO tid, oxycodone 10 mg every 6 hours prn), due to chronic lumbar stenosis, resulting in chronic functional dysmobility, s/p T5-L3 fusion (2004), followed by relapse of lower extremity neuropathic pain prompting L4-L5 fusion (2006) and L5-S1 fusion (2009) s/p lumbar wound infection (04/2005) with surgical exploration and IV antibiotics. s/p revision of the thoracolumbar spine (04/2005) with exposure from upper thoracic spine down to the pelvis, s/p revision laminectomy, s/p T7-T11 discectomy bilaterally on chronic suppressive antibiotic therapy utilizing bactrim DS 800mg / 160mg PO daily. Patient was subsequently admitted to the inpatient hospitalist service @ [facility] on 11/06/2024 with the following diagnoses: 1. Acute on chronic lower back pain. 2. Acute hypoxic respiratory failure due to acute HAP. The following medical issues were addressed while the patient remained in [facility] from 11/06/2024 through 12/01/2024: 1. Acute on chronic lower back pain. Appreciate orthopedic spine consultation and recommendations. The patient has had previous lumbar surgery at an outside institution. MRI scan canceled due to expected artifact from previous instrumentation which will render interpretation useless. No significant response to parenteral steroid therapy or Zosyn. Antibiotics have been switched to Levaquin and vancomycin, day 4. His respiratory status seems to be improving. Sed rate is markedly elevated. This raises the question of underlying infectious process involving his lumbar hardware. Solu-Medrol has been switched to oral hydrocortisone therapy. Steroid therapy is contributing to his leukocytosis along with the suspected pneumonia. Continue pain control measures. Fentanyl patch ordered on November 21 and dosage uptitrated November 23. Doing well on reassessment following this. He has a high narcotic tolerance due to chronic home narcotic use. [facility] was contacted on November 17 but refused to accept the patient in transfer. CT myelogram was ordered but canceled because Eliquis would need to be halted for 3 days prior to imaging. Stopping Eliquis outweigh any potential benefits of obtaining CT myelogram results at this time. Overnight 11/25 did receive a dose of Valium 2 mg p.o. x 1 with improvement of his back spasm. Feels pain is tolerable on reassessment later in the day, although is somewhat anxious about having recurrent spasms Prednisone temporarily switched to 5 mg daily tablets due to availability of 1 mg tablets Had a good night 11/26, no exacerbations 11/28/24: patient reports that dilaudid 4mg PO q4 prn severe pain does not relieve his lumbago, but dilaudid IV does relieve his lumbago. Subsequently, I ordered dilaudid 2mg IV x 1 dose (11/28/2024, 11:12am). Subsequently, patient reported that his lumbar pain went down from 12 (out of 10) to 6 (out of 10) and stayed that way for approximately 2-3 hours. 11/29/24: patient reports muscle spasms of the lower back. Subsequently, I ordered diazepam 5mg PO x 1 dose (11/29/2024, 3:27pm). Subsequently, patient reported that his muscle spasms of the lower back RESOLVED completely. 11/30/24: patient reported 12/10 lower back pains. Subsequently, I ordered dilaudid 2mg IV x 1 dose (11/30/2024, 7:20pm). Subsequently, patient reported t hat his 12/10 lower back pains RESOLVED completely. 12/01/24: patient reports 0/10 lower back pains on dilaudid 4mg PO q4 prn severe pain, fentanyl patch 75ug/hr, 1 patch TD q72h, and diazepam 5mg PO bid prn muscle spasms. 12/01/24: patient was subsequently discharged to [facility] with electronic prescriptions transmitted to [facility] for: a. dilaudid 4mg PO q4 prn severe pain, #30 tablets, no refills. b. fentanyl patch 75ug/hr, 1 patch TD q72h, #10 patches, no refills. c. diazepam 5mg PO bid prn muscle spasms, #10 tablets, no refills. 2. Acute hypoxic respiratory failure due to acute HAP, both RESOLVED. Bilateral, multifocal groundglass opacities seen on 11/12/2024, 11:23am CTA chest were probably due to an acute viral infection that patient acquired while in [facility] as the original CTA chest (11/06/2024, 2:51pm) revealed NO infiltrate/consolidation at all. Nonetheless, patient received zosyn empirically for 7 days, followed by levaquin and vancomycin for several days; subsequently, vancomycin was discontinued. Patient subsequently received oral levaquin through 11/30/2024. - Oxygen requirements have diminished from 1-2 L/min per nasal cannula to room air with O2 saturation 100% on room air (12/01/2024, 7:48am). - Hence, both acute hypoxic respiratory failure and acute HAP have both RESOLVED , and patient was discharged to [facility] off these 3 antibiotics listed above. 3. Insulin-dependent DM2 with HbA1c 7.8% (11/14/2024, 9:58am) on lantus 8 units SQ daily, glipizide 5mg PO bid, and metformin 500mg PO bid at home. cf., admission glucose 95 mg/dL (11/06/2024, 8:49pm). cf., discharge glucose 108 mg/dL (12/01/2024, 7:42am). - Patient received carbohydrate consistent diet, lantus 8 units SQ daily, lispro insulin sliding scale qac + qhs, and POC glucose qac + qhs while in [facility]. Patient will continue this same regimen on hospital discharge to [facility] on 12/01/2024. - Patient will NOT resume his home-scheduled glipizide 5mg PO bid or metformin 500mg PO bid on hospital discharge to [facility] on 12/01/2024. 4. Chest pain - Noncardiac. Now resolved. No acute EKG changes. No evidence of acute coronary syndrome 5. Adrenal insufficiency, panhypopituitarism - Known panhypopituitarism and adrenal insufficiency s/p hypophysectomy to treat pituitary adenoma. - Now on testosterone 150mg IM weekly, prednisone 1mg PO tid, hydrocortisone 10mg PO tid, synthroid 50ug PO daily and liothyronine 5ug PO qhs at home and also while in [facility] (11/06/2024 - 12/01/2024). Patient will continue this same regimen on hospital discharge to [facility] on 12/01/2024. 6. Morbid obesity - Morbid obesity with BMI 41.2 (height 175.3 cm; weight 126.6 kg). Patient was advised to modify his diet, exercise, and lifestyle in order to lose weight over the next 6 months. Patient reports that he will try his best. (2) Hospital-acquired pneumonia: (3) Acute respiratory failure with hypoxia: (4) Diabetes type 2, uncontrolled: (5) Chest pain: (6) Adrenal insufficiency: (7) Morbid obesity with BMI of 40.0-44.9, adult: (8) SINA (iron deficiency anemia): (9) Fluid overload: Admission HPI Per Admitting Provider Mahesh is a 64yo M with a PMHx acute on chronic pain. Presented for evaluation of chest pain worse on inspiration. Worsening LE edema L>R which is similar to past PE. Takes eliquis and has been compliant with this CTA with no evidence of PE +pulmonary edema trop normal, BNP and D-Dimer wnl leukoycytosis without left shift ON trying to transfer from CT bed writhin in pain and reported he has exacerbated back spasms. Per patient he reports that what actually brought him in was left leg discomfort, shooting pain down his leg with more weakness than typical. Denies chest pain at time of admitting assessment. Strength is similar, but very impaired at baseline. He reports his pain is typically tolerable although not resolved at his home oxycodone regimen, and has not had a pain flare in almost a year. He reports that after moving and shifting position on the CT table he is having spasms and 10/10 pain, yelling out in pain during exam and reports that when this has happened in the past has required high doses of IV narcotics. BP 114/91, pulse 84 at time of conversation. He is on 2 L of nasal cannula and has received 6 mg of morphine, 2.5 mg of diazepam in the ER and reports that this has not produced nearly any improvement in his discomfort. Has rods and screws S1-T5 with a pmh of osteomyelitis. Had a prior history of bactrim/staph infection Takes oxycodone 60mg spaced throughout the day. MOrphine has worked well, dilaudid has worked wel. "has to be IV" Took eliandrea barrazan LEFT leg weakness, swelling. [place] similar to when he had a blood clot many years ago Left leg weaker than normal. Had been having increasing neuropathy pain, numbness, tingling 'like lightning' down the leg. Back ugery was done by Dr. Ekaterina Garrett ortho spine in [facility]. Has had 16 surgeries in 5 years due to osteoporosis 2/2 cushions and burst vertibrae in 2004. Most recent surgery in 2009. Currently follows with Dr. Jacob. Had previuosly seen pain management. Discharge Exam Constitutional General: Comfortable, cooperative, coherent. Wide awake and alert. Not confused, lethargic, or obtunded. Patient speaks in complete, fluent, and articulate sentences without pause, interruption, cough, or wheeze. HEENT: Normocephalic, atraumatic. Pupils equally round and reactive to light. No nystagmus, gaze paresis, anisocoria, miosis, mydriasis, hyphema, scleral injection, conjunctivitis, or pterygium. No otorrhea. No pharyngeal erythema, edema, or discharge. Neck: Supple, no stridor, bruit, goiter, or hepato-jugular reflux. Jugular venous pressure is estimated to be 3 cm above the sternal angle of Jose, which in turn, is 5 cm above the level of the right atrium; with jugular venous pressure estimated to be 8 cm, then, there is no jugular venous distention on 12/01/2024. Lymphatics: No cervical (anterior/posterior), supraclavicular, infraclavicular, axillary, epitrochlear, or inguinal adenopathy. Chest: Symmetric rise and fall with respirations. Non-tender to palpation. Lungs: Clear to auscultation and percussion. No audible expiratory wheeze, egophony, pectoriloquy, increase in tactile fremitus, or flatness/dullness to percussion at the bases. Heart: RRR. S1 and S2 noted. No S3 or S4 summation gallop. No tripartite friction rub. Grade II/ early systolic murmur @ LLSB without radiation to the carotids, axilla, or back, and which remains invariant in regards to the respiratory cycle. Abdomen: Soft, non-tender, non-distended. No rebound, guarding, Camargo's sign, or organomegaly. Bowel sounds auscultated in all 4 quadrants. Extremities: No clubbing, cyanosis, or edema in upper extremities or lower extremities bilaterally. 2+ pedal pulses bilaterally. Skin: No decubitus ulcer or enanthem. Genito-urinary: No urethral discharge. No scherer catheter. Neurology: Alert and oriented in regards to person, place, time, and situation. DTR+. 5/5 motor strength in all 4 extremities, both proximally and distally. No myoclonus, tremors, or tics. Back/spine: No spinal tenderness. No paraspinal tenderness. Psychiatry: No homicidal ideation. No suicidal ideation. No flat affect; smiles appropriately. Discharge Plan Discharge Items Patient Disposition: Transfer [facility] Reason For Visit: BACK PAIN Discharge Diagnosis: Back pain Condition on Discharge: Fair Activity: Resume your previous activity Lifting: Gradually increase as tolerated Bathing: No limitations Sexual Activity: When tolerated Exercise/Sports: Gradually increase as tolerated Driving/Machine Use: No limitations Weightbearing: Full weightbearing Non-emergency contact: Primary Care Provider, Surgeon and Specialist Call non-emergency contact if: you have any medication questions, your symptoms worsen and your pain is not controlled Follow-up/Referrals: David Jacob, [Primary Care Provider] - Diet: Carb Consistent or DM2 and Heart Healthy Addtl Attending Provider Instructions: You are seen in the hospital for severe back pain. Your hospitalization was complicated by suspected pneumonia which improved. An MRI was unable to be performed due to scatter artifact from your existing hardware. Your initial lumbar CT showed advanced generative changes of the lumbar spine with a large disc osteophyte complex with diffuse spinal canal stenosis and neuroforaminal compromise. This was reviewed with orthopedic spine. Hardware is in appropriate alignment. You are recommended for pain control and to follow-up with your surgeon for ongoing care, acute surgical intervention was not recommended and you are a very hyper surgical candidate if any intervention is ever pursued. You are treated for pneumonia with an antibiotic, levofloxacin. You have been prescribed 4 additional days of levofloxacin as below. Occult low-grade infection of your hardware cannot be definitively excluded. You were treated with antibiotics during admission for pneumonia. After your completion of levofloxacin it is recommended you have a weekly CBC and CRP for at least 1 month. If these rise again after completing antibiotics it is recommended that you follow-up with your spine surgeon and have a infectious disease consultation. You have required exceptionally high pain medication dosing both in the past and during admission. You have required high dose narcotics, combination with muscle relaxants, and have intermittently used Valium for acute spasm in the past. All of these together have a synergistic effect which can be life- threatening or fatal. You were with improved pain control and tolerating well after initiation of a fentanyl transdermal patch and oral hydromorphone 4 mg every 4 hours as needed during admission. These have been continued on discharge. Use of your muscle relaxants/Valium along with these have a synergistic and very high respiratory suppression risk which could lead to . This was discussed explicitly with you admission and you expressed an understanding of this. Narcan intranasal rescue has been prescribed due to your high-dose narcotics. Should you ever stop breathing or have respiratory suppression, this medication can be given intranasally as an attempt to reverse oncotic effects. If you develop any new or worsening symptoms including fever, chills, sweats, chest pain, chest pressure, difficulty breathing, uncontrolled nausea/vomiting, rash, wheezing, passing out or nearly passing out, bleeding, black/bloody bowel movements, or other new or concerning symptoms please call your primary care physician, or call 911 for re-evaluation in the emergency department if you are very concerned. Pending Studies at Discharge: No Stand-Alone Forms: My [facility] Skilled Items Patient informed of condition?: No DNR: Yes Discharge Level of Care: Skilled Communicable Disease: No Discharge Prognosis: Stable Lines: None Urinary Catheter: No Medications and DC Order Prescriptions: New insulin glargine [Lantus U-100 Insulin] 100 unit/mL Solution 8 unit SC DAILY Qty: 10 0RF fentanyl 75 mcg/hr Patch 72 Hour 1 patch transdermal Q3D Qty: 10 0RF diazepam 5 mg Tablet 5 mg PO BID PRN (Reason: muscle spasm) Qty: 10 0RF hydromorphone [Dilaudid] 4 mg tablet 4 mg PO Q4H PRN (Reason: pain) Qty: 30 0RF sulfamethoxazole-trimethoprim [Bactrim DS] 800-160 mg tablet 1 tab PO DAILY Qty: 30 0RF Continued levothyroxine 200 mcg tablet 200 mcg PO DAILYBB Qty: 90 1RF Rx Instructions: total dose 250 hydrocortisone 5 mg tablet 10 mg PO TID Qty: 90 0RF acetaminophen 325 mg Tablet 650 mg PO Q4H PRN (Reason: fever or pain) Qty: 180 0RF atorvastatin 20 mg tablet 20 mg PO HS Qty: 30 0RF (DME) blood-glucose meter [OneTouch Ultra2 Meter] Misc See Rx Instructions .Route Qty: 1 0RF Rx Instructions: As directed polyethylene glycol 3350 [Miralax] 17 gram powder in packet 17 g PO BID PRN (Reason: Constipation) 30 Days Qty: 60 0RF sertraline 100 mg tablet 100 mg PO TID Qty: 90 0RF (DME) OneTouch Ultra Test Strip See Rx Instructions .Route Qty: 100 0RF Rx Instructions: As directed liothyronine 5 mcg tablet 5 mcg PO QPM Qty: 30 0RF aspirin 81 mg Tablet,Delayed Release (Dr/Ec) 81 mg PO HS Qty: 30 0RF spironolactone [Aldactone] 25 mg tablet 25 mg PO BID Qty: 60 0RF baclofen 20 mg tablet 20 mg PO TID 90 Days Qty: 90 0RF prednisone 1 mg tablet 1 mg PO TID Qty: 90 0RF levothyroxine 50 mcg tablet 50 mcg PO DAILYBB Qty: 30 0RF lansoprazole 30 mg capsule,delayed release(DR/EC) 30 mg PO QAM Qty: 30 0RF mirtazapine 15 mg tablet 7.5 mg PO HS Qty: 30 0RF Rx Instructions: to start to cut tablet in /2 tonight = 7.5 mg per pt testosterone cypionate 200 mg/mL oil 150 mg IM Q7D 90 Days Qty: 9.75 0RF Rx Instructions: saturdays (DME) BD Integra Syringe 3 mL 25 gauge x 1" syringe See Rx Instructions .Route Qty: 100 0RF Rx Instructions: inject teterone every 7 days pregabalin 150 mg capsule 150 mg PO QID 30 Days Qty: 120 1RF ferrous gluconate 324 mg (37.5 mg iron) tablet 324 mg PO .every other day Qty: 15 0RF (DME) lancets [OneTouch UltraSoft 2 Lancet] 30 gauge misc See Rx Instructions .Route Qty: 100 0RF Rx Instructions: As directed Eliquis 5 mg tablet 5 mg PO BID 90 Days Qty: 60 0RF (DME) Wheeled Walker Misc See Rx Instructions .Route Qty: 1 0RF Rx Instructions: As directed with seat mecobalamin (vitamin B12) 1,000 mcg tablet,chewable 5,000 mcg PO QPM Qty: 30 0RF Ozempic 1 mg/dose (4 mg/3 mL) pen injector 1 mg subcut Q7D Qty: 3 0RF Discontinued metformin 500 mg tablet extended release 24 hr 1,000 mg PO BID Qty: 360 3RF glipizide 5 mg tablet 5 mg PO BID Qty: 120 1RF sulfamethoxazole-trimethoprim 400-80 mg tablet 1 tab PO DAILY Qty: 90 0RF oxycodone 5 mg tablet 10 mg PO Q6H PRN (Reason: pain) Qty: 150 0RF Discharge Orders: Discharge Order (Routine); Ordered 12/01/24 Ordered By: Bruno Ortez/Other Patient Handouts: Managing Type 2 Diabetes Admission Data Admit Date/Time: 11/06/24 19:10 Attending Provider: Bruno Anderson Admit Provider: Bradly Roque Primary Care Provider: David Jacob Other Providers: [facility]; Barbie Miner [facility]; [place],[facility] Stay Data Diagnostic Imagining Performed 11/06/24 14:51 CT angio chest PE protocol Stat 11/06/24 17:34 CT lumbar spine wo con Stat 11/12/24 11:23 CT angio chest PE protocol Urgent 11/17/24 16:11 CT lumbar post myelogram Routine Pending Results Patient Have Any Pending Studies at Discharge: No Discharge Instructions Given to Patient (Per Discharging Provider) You are seen in the hospital for severe back pain. Your hospitalization was complicated by suspected pneumonia which improved. An MRI was unable to be performed due to scatter artifact from your existing hardware. Your initial lumbar CT showed advanced generative changes of the lumbar spine with a large disc osteophyte complex with diffuse spinal canal stenosis and neuroforaminal compromise. This was reviewed with orthopedic spine. Hardware is in appropriate alignment. You are recommended for pain control and to follow-up with your surgeon for ongoing care, acute surgical intervention was not recommended and you are a very hyper surgical candidate if any intervention is ever pursued. You are treated for pneumonia with an antibiotic, levofloxacin. You have been prescribed 4 additional days of levofloxacin as below. Occult low-grade infection of your hardware cannot be definitively excluded. You were treated with antibiotics during admission for pneumonia. After your completion of levofloxacin it is recommended you have a weekly CBC and CRP for at least 1 month. If these rise again after completing antibiotics it is recommended that you follow-up with your spine surgeon and have a infectious disease consultation. You have required exceptionally high pain medication dosing both in the past and during admission. You have required high dose narcotics, combination with muscle relaxants, and have intermittently used Valium for acute spasm in the past. All of these together have a synergistic effect which can be life- threatening or fatal. You were with improved pain control and tolerating well after initiation of a fentanyl transdermal patch and oral hydromorphone 4 mg every 4 hours as needed during admission. These have been continued on discharge. Use of your muscle relaxants/Valium along with these have a synergistic and very high respiratory suppression risk which could lead to . This was discussed explicitly with you admission and you expressed an understanding of this. Narcan intranasal rescue has been prescribed due to your high-dose narcotics. Should you ever stop breathing or have respiratory suppression, this medication can be given intranasally as an attempt to reverse oncotic effects. If you develop any new or worsening symptoms including fever, chills, sweats, chest pain, chest pressure, difficulty breathing, uncontrolled nausea/vomiting, rash, wheezing, passing out or nearly passing out, bleeding, black/bloody bowel movements, or other new or concerning symptoms please call your primary care physician, or call 911 for re-evaluation in the emergency department if you are very concerned. Total Time Total Time Spent Total Time Spent (In Minutes): 35 minutes. Of this time period, 19 minutes were spent in coordinating patient's discharge. Coding Level of Care Code 81519 INP/OBS DISCH >30 MIN Diagnoses Acute exacerbation of chronic low back pain M54.50; G89.29 Hospital-acquired pneumonia J18.9; Y95 Acute respiratory failure with hypoxia J96.01 Uncontrolled type 2 diabetes mellitus with hyperglycemia E11.65 Glycemic state: with hyperglycemia Chest pain R07.9 Adrenal insufficiency E27.40 Morbid obesity with BMI of 40.0-44.9, adult E66.01; Z68.41 SINA (iron deficiency anemia) D50.9 Fluid overload E87.70
--- NOTE | 2024-12-02 07:07 | Coding Query ---
CODING QUERY FOR UNCONTROLLED DIABETES To promote full compliance with coding requirements relating to patient care, provider participation is requested in all cases of twill cutter uncertainty. Please assist us with the question(s) below: Coding Question: The term uncontrolled Diabetes was used throughout the record. To be able to code this diagnosis properly, could you please clarify the diagnosis below: ( ) Uncontrolled Diabetes meaning hypoglycemia ( ) Uncontrolled Diabetes meaning hyperglycemia ( ) Other (please specify) Principal Diagnosis: "that condition established after study, to be chiefly responsible for occasioning the admission of the patient to the hospital for care." Co-Existing Principal Diagnosis: "when two or more diagnoses equally meet the criteria for principal diagnosis as determined by the circumstances of admission, diagnostic work up, and/or therapy provided, and the Alphabetic Index, Tabular List, or another coding guideline does not provide sequencing direction, any one of the diagnoses may be sequenced first." "When the physician has documented what appears to be a current diagnosis in the body of the record, but has not included the diagnosis in the final diagnostic statement, the physician should be asked whether the diagnosis should be added." (Source Coding [facility] 2 QTR90. p3-4) MATIAS
== END 2024-12-01 15:24 | DRG 551 ==
LOC: ED 14:33 → 2S 19:10 → SUATTDRO 19:10 → 2S 20:11 → 3W 11-30 16:22

== ENCOUNTER 2025-01-06 11:51 | Inpatient (IN) ==
--- NOTE | 2025-01-06 11:59 | Emergency Department Note ---
Impression & Plan Cellulitis, Leg wound, left ED Provider Note CHIEF COMPLAINT: Wound, infection HISTORY OF PRESENTING ILLNESS: The patient is a 64-year-old male with past medical history of chronic anticoagulation, type II uncontrolled diabetes, morbid obesity, lymphedema, and Odell's disease, who arrives to the emergency department for evaluation of left lower extremity wound. The patient states he was recently discharged from the hospital to a skilled facility, where they placed CASSANDRA hose on his lower extremities. He states during his stay at the facility, the CASSANDRA hose were not changed, and they cause a linear laceration to the left medial upper calf. Patient also reports increased swelling, and pain in the leg. He also reports he has a wound on his sacrum, that causes him severe pain upon lying. He reports he has decreased ambulation, since his recent hospital stay. He denies fever, chest pain, abdominal pain, nausea, or vomiting. REVIEW OF SYSTEMS: See HPI for pertinent positives and pertinent negatives. ALLERGIES: See below MEDICATIONS: See below PAST MEDICAL HISTORY: See below PHYSICAL EXAM: VITALS: Vitals are noted on the nurse's note and reviewed by myself. Tachycardia, normotensive, febrile. GENERAL: 64-year-old male, in no acute distress, nondiaphoretic, obese. SKIN: Bilateral lower extremity lymphedema. Cellulitis to the left medial calf, open linear wound present just distal to the knee. HEAD: Normocephalic atraumatic. NECK: Supple without nuchal rigidity. No lymphadenopathy. Cervical spine is nontender. No JVD. HEART: Tachycardia with regular rhythm without murmurs gallops or rubs. LUNGS: Clear to auscultation bilaterally without wheezes, rales or rhonchi. No retractions or accessory muscle use. ABDOMEN: Positive bowel sounds x 4. Soft, nontender, without masses or organomegaly. MUSCULOSKELETAL: Bilateral lower extremity edema, full ROM, bilateral hips, knees, ankles. NEURO: Patient was alert and oriented to person place and time. No focal neurological deficits. DIFFERENTIAL DIAGNOSIS: Sepsis, UTI, pneumonia, metabolic, electrolyte abnormalities, cardiac sources, intracerebral event, toxicologic, neurologic, cellulitis, MRSA, as well as other pathologies. ED COURSE AND MEDICAL DECISION MAKING: MEDICATIONS GIVEN: Vancomycin 2750 mg IV, ceftriaxone 2000 mg IV. MONITOR: Continuous quality assurance monitor final: Order was placed for continuous quality assurance monitor final. Patient was placed on the quality assurance monitor final and continuous pulse ox. Patient was noted to be in normal sinus rhythm at an initial rate of 109 bpm per my interpretation. EKG: EKG was interpreted by myself as Sinus Tachycardia at a rate of 108bpm with no ST elevation or depression. Previous for comparison from 11/06/24 shows []. INTERPRETATION OF LABS: I interpreted the labs with full lab results as below in the lab section of this note. Pertinent lab results discussed in the MDM section below. INTERPRETATION OF IMAGING: Imaging studies were interpreted by myself and read by radiology as per the imaging section of this note. CHRONIC MEDICAL/SOCIAL CONDITIONS AFFECTING CARE: Obesity, Impaired mobility, T2DM, Lymphedema, [place] MDM SUMMARY: The patient is a pleasant, 64-year-old male who arrives to the emergency department for evaluation of the above-stated complaint. A saline lock was established, sepsis workup was obtained. CBC shows leukocytosis, 18.36, chronic but stable anemia. CMP shows elevated glucose at 248. Lactate 3.2, magnesium 1.8. Procalcitonin 0.12. Troponin 7.2. Chest x-ray was obtained which per my interpretation shows cardiomegaly, with some pulmonary vascular congestion. The patient was provided IV fluid resuscitation with initiation of IV antibiotics. He will require admission to the hospital for further evaluation, wound consultation, and IV antibiotic administration. He remained stable while in the emergency department. He was admitted to the [facility]. Please refer to their documentation for further patient workup and care. DIAGNOSIS: Cellulitis, leg wound The patient's case was discussed with Dr. Waggoner, who agreed with my evaluation and treatment plan. The chart was completed utilizing [employer] Speech voice recognition software. Grammatical errors, random word insertions, pronoun errors, and incomplete sentences are an occasional consequence of this system due to software limitations, ambient noise, and hardware issues. Any formal questions or concerns about the content, text, or information contained within the body of this dictation should be directly addressed to the provider for clarification. Past Med/Surg History Problem List (Updated 01/06/25 @ 16:35 by STEVAN Hair) Leg wound, left (Acute) Cellulitis (Acute) Cellulitis Leg laceration Opiate dependence, continuous Fluid overload Hospital-acquired pneumonia Acute exacerbation of chronic low back pain (Acute) Chronic anticoagulation On Eliquis for PE. 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) ACTH deficiency Acquired central hypothyroidism Hyperparathyroidism due to vitamin D deficiency Diabetes mellitus type 2 in obese HTN (hypertension), benign Hyperlipidemia Chronic pain disorder Lumbar myelopathy Lumbar spinal stenosis (Acute) Generalized polyneuropathy Constipation due to opioid therapy Complex sleep apnea syndrome Nocturnal hypoxemia Osteoporosis Urinary incontinence GERD (gastroesophageal reflux disease) Impaired functional mobility and activity tolerance Lymphedema Restless leg syndrome Chronic venous insufficiency of lower extremity Medical History Acute respiratory failure with hypoxia Acute bronchitis Chest pain Pleuritic chest pain Adrenal insufficiency Central hypogonadism Pulmonary embolism Diabetic ulcer of toe of right foot Chronic osteomyelitis of spine History of recurrent deep vein thrombosis IVC filter Fusion of spine, thoracolumbar region T5-S1 Nocturnal enuresis Micronutrients deficiency Deep vein thrombosis LT. ankle and RT upper arm>only taking aspirin currently History of anesthesia problem "remembers being aware and hearing talking and conversations during his spinal surgery at [facility]" Hyperlipidemia Hypertension History of COVID-19 05/2021, home test, not hosp; headache, weakness, fatigue, no appetite, fever, diarrhea>resolved. Sleep apnea hx cpap>bipap>now not using anything; new study scheduled w/dr dean in 06/2022 Osteomyelitis Spinal stenosis Osteoporosis Status post gamma knife treatment pituitary gland Back pain chronic Pituitary tumor hx Surgical History Hx of tonsillectomy Hx of colonoscopy History of lumbar fusion T5-S1 History of cholecystectomy Family History Sister Breast cancer Multiple sclerosis Father Colorectal cancer Myocardial infarction Brother Myocardial infarction Prostate cancer Pancreatitis Denies family history of Ovarian cancer Social History Smoking Status: Never smoker Second Hand Exposure: Yes (as a child-father smoked); Do You Dip or Chew Tobacco: No; Hx Alcohol Use: No Hx Substance Use: No Preferred Language: Italian Communication Ability: Effective Visual Impairment: Limited Hearing Ability: Normal Director Clinical Research Required: No Beliefs That Will Affect Care: None marital status: Current Living Situation: Spouse current occupational status: other current occupation: Disabled How many Children do You have: 1 Feels Safe at Home: Yes Childhood Exposure to Second-Hand Smoke: Yes Diet: regular caffeine: Yes during the past year weight has: remained stable Dental Care, Regularly: No Physical Activity Frequency: Does not Exercise Seatbelt Use: always Sunscreen Use: Yes Assistive Devices: Walker Allergies Allergies Allergy/AdvReac Type Severity Reaction Status Date / Time iron dextran complex Allergy Severe HIVES Verified 01/02/25 14:34 cyclobenzaprine Allergy Intermediate N/V Verified 01/02/25 14:34 Home Meds Home Medications Medication Instructions Recorded Confirmed lansoprazole 30 mg capsule,delayed 30 mg PO QAM 01/02/25 01/06/25 release liothyronine 5 mcg tablet 5 mcg PO QPM 01/02/25 01/06/25 ferrous gluconate 324 mg (37.5 mg 324 mg PO Q OTHER DAY 01/06/25 01/06/25 iron) tablet insulin glargine 100 unit/mL 8 unit SC HS 01/06/25 01/06/25 subcutaneous solution (Lantus U-100 Insulin) oxycodone 5 mg tablet 10 mg PO Q6H PRN pain 01/06/25 01/06/25 Previous Rx's Medication Instructions Recorded levothyroxine 200 mcg tablet 200 mcg PO DAILYBB #90 tabs 09/12/24 Wheeled Walker #1 ea 12/01/24 acetaminophen 325 mg tablet 650 mg (2 x 325 mg) PO Q4H PRN 12/01/24 fever or pain #180 tabs apixaban 5 mg tablet (Eliquis) 5 mg PO BID 90 days #60 tabs 12/01/24 aspirin 81 mg tablet,delayed 81 mg PO HS #30 tabs 12/01/24 release baclofen 20 mg tablet 20 mg PO TID 90 days #90 tabs 12/01/24 blood sugar diagnostic (OneTouch #100 ea 12/01/24 Ultra Test strips) blood-glucose meter (OneTouch #1 ea 12/01/24 Ultra2 Meter) diazepam 5 mg tablet 5 mg PO BID PRN anxiety #10 tabs 12/01/24 hydrocortisone 5 mg tablet 10 mg (2 x 5 mg) PO TID #90 tabs 12/01/24 lancets 30 gauge (OneTouch #100 ea 12/01/24 UltraSoft 2 Lancet) levothyroxine 50 mcg tablet 50 mcg PO DAILYBB #30 tabs 12/01/24 mecobalamin (vitamin B12) 1,000 5,000 mcg (5 x 1,000 mcg) PO QPM 12/01/24 mcg chewable tablet #30 tabs polyethylene glycol 3350 17 gram 17 g PO BID PRN Constipation 30 12/01/24 oral powder packet (Miralax) days #60 ea semaglutide 1 mg/dose (4 mg/3 mL) 1 mg (0.75 mL) subcut Q7D #3 mL 12/01/24 subcutaneous pen injector sertraline 100 mg tablet 100 mg PO TID #90 tabs 12/01/24 spironolactone 25 mg tablet 25 mg PO BID #60 tabs 12/01/24 (Aldactone) syringe with needle, safety 3 mL #100 ea 12/01/24 25 gauge x 1" (BD Integra Syringe) testosterone cypionate 100 mg/mL 150 mg (1.5 mL) subcut Q7D #10 mL 12/01/24 intramuscular oil atorvastatin 20 mg tablet 20 mg PO HS #90 tabs 01/02/25 mirtazapine 15 mg tablet 7.5 mg (1/2 x 15 mg) PO HS #30 tabs 01/02/25 prednisone 1 mg tablet 1 mg PO TID #90 tabs 01/02/25 pregabalin 150 mg capsule 150 mg PO QID #120 caps 01/02/25 Results & Data (ED) Vital Signs Vital Signs - 24 hr 01/06/25 12:16 01/06/25 12:23 01/06/25 12:57 Temperature 37.9 C H Temperature Source Oral Pulse Rate 109 H 109 H 98 H Pulse Rate [Apical] Pulse Rhythm [Apical] Pulse Strength [Apical] Respiratory Rate 18 18 Respiratory Effort / Characteristics Non-Labored Spontaneous Respiratory Depth Normal Respiratory Pattern Regular Blood Pressure 119/72 Blood Pressure [Right Arm] Blood Pressure Mean 87 Blood Pressure Mean [Right Arm] Blood Pressure Position [Right Arm] Pulse Oximetry 95 95 Oxygen Delivery Method Room Air Room Air Oxygen Flow Rate Sepsis Recent Fever Within 48 Hours Yes Sepsis New/Unexplained Change in Mental Status No Sepsis Action Taken by Nursing No Action Required 01/06/25 14:33 01/06/25 16:00 Temperature Temperature Source Pulse Rate Pulse Rate [Apical] 96 H 83 Pulse Rhythm [Apical] Regular Regular Pulse Strength [Apical] Normal Normal Respiratory Rate 16 20 Respiratory Effort / Characteristics Non-Labored Spontaneous Non-Labored Spontaneous Respiratory Depth Normal Normal Respiratory Pattern Regular Regular Blood Pressure Blood Pressure [Right Arm] 106/74 100/59 L Blood Pressure Mean Blood Pressure Mean [Right Arm] 84 72 Blood Pressure Position [Right Arm] Lying Lying Pulse Oximetry 92 93 Oxygen Delivery Method Nasal Cannula Nasal Cannula Oxygen Flow Rate 2 2 Sepsis Recent Fever Within 48 Hours Sepsis New/Unexplained Change in Mental Status Sepsis Action Taken by Custodial Medications Current Medication List: was personally reviewed by me Laboratory Data Attestation: I reviewed the patient's lab results. 01/06/25 13:58 01/06/25 13:58 Lab Results 01/06/25 01/06/25 Range/Units 13:58 15:27 WBC 18.36 H (4.8-10.8) K/ul RBC 6.44 H (4.70-6.10) M/uL Hgb 15.7 (14.0-18.0) g/dl Hct 51.3 (42.0-52.0) % MCV 79.7 L (80.0-100.0) fL MCH 24.4 L (25.0-34.0) pg MCHC 30.6 L (32.0-36.0) g/dL RDW Std Deviation 79.5 H (36.4-46.3) fL RDW Coeff of Tristan 28.1 H (11.5-14.5) % Plt Count 149 (130-400) K/uL Immature Gran % (Auto) 2.2 % Neut % (Auto) 84.3 % Lymph % (Auto) 7.7 % [place] % (Auto) 4.5 % Eos % (Auto) 1.0 % Baso % (Auto) 0.3 % Neut # (Auto) 15.50 H (1.40-6.50) K/uL Lymph # (Auto) 1.41 (1.20-3.40) K/uL [place] # (Auto) 0.82 H (0.11-0.59) K/uL Eos # (Auto) 0.18 (0.00-0.50) K/uL Baso # (Auto) 0.05 (0.00-0.20) K/uL Immature Gran # (Auto) 0.40 H (0.01-0.20) K/uL Absolute Nucleated RBC 0.02 (0.00-0.12) K/uL Nucleated RBC % (auto) 0.1 % Toxic Vacuolation 1+ Polychromasia 1+ Anisocytosis Present Sodium 136 (136-145) mmol/L Potassium 3.9 (3.5-5.1) mmol/L Chloride 99 (98-107) mmol/L Carbon Dioxide 29 (21-32) mmol/L Anion Gap 8 (3-11) BUN 7 (6-23) mg/dl Creatinine 0.75 (0.6-1.4) mg/dl Est Cr Clr Drug Dosing 134.6 ml/min eGFR 100.15 BUN/Creatinine Ratio 9.3 L (10-20) Glucose 248 H (70-99(Fasting)) mg/dl Lactate 3.2 H* (0.4-2.0) mmol/L Calcium 8.8 (8.6-10.3) mg/dl Magnesium 1.8 (1.7-2.4) mg/dl Total Bilirubin 0.5 (0.2-1.0) mg/dl Direct Bilirubin 0.1 (0-0.2) mg/dl AST 23 (13-39) U/L ALT 25 (7-52) U/L Alkaline Phosphatase 81 (34-104) U/L Troponin I High Sens 7.2 (0-20) pg/ml C-Reactive Protein 8.74 H (0-0.5) mg/dl Total Protein 7.5 (6.0-8.3) gm/dl Albumin 3.5 (3.4-5.0) gm/dl Procalcitonin 0.12 (0-0.5) ng/ml Urine Color Yellow Urine Appearance Clear (Clear) Urine pH 7.5 (4.5-7.5) Ur Specific [place] 1.010 (1.000-1.030) Urine Protein Trace H (Negative) Urine Glucose (UA) 1+ H (Negative) Urine Ketones Negative (Negative) Urine Blood Negative (Negative) Urine Nitrite Negative (Negative) Urine Bilirubin Negative (Negative) Urine Urobilinogen Negative (Negative) Ur Leukocyte Esterase Negative (Negative) Urine WBC (Auto) 0-5 (0-5) /hpf Urine RBC (Auto) 0-2 (0-2) /hpf U Hyaline Cast (Auto) 6-10 H (0-2) /lpf U Epithel Cells (Auto) 0-2 (0-2) /hpf Urine Bacteria (Auto) None Seen (None Seen) Urine Comment Administered Medications Discontinued Medications Sodium Chloride (Nss) 1,000 mls @ 999 mls/hr IV .Q1H1M ARMANI Stop: 01/06/25 13:15 Last Infusion: 01/06/25 15:10 Dose: Infused Documented By: Admin: 01/06/25 13:58 Dose: 999 mls/hr Documented By: OSCAR Vancomycin HCl 2,750 mg/ (Sodium Chloride) 500 mls @ 200 mls/hr IV NOW STA Stop: 01/06/25 14:38 Last Admin: 01/06/25 14:49 Dose: 200 mls/hr Documented By: CHAVO Ceftriaxone Sodium (Rocephin) 2,000 mg in 50 mls @ 100 mls/hr IV NOW STA Stop: 01/06/25 12:44 Last Infusion: 01/06/25 15:09 Dose: Infused Documented By: Admin: 01/06/25 13:57 Dose: 100 mls/hr Documented By: OSCAR Acetaminophen (Ofirmev) 1,000 mg in 100 mls @ 400 mls/hr IV NOW STA Stop: 01/06/25 13:09 Last Infusion: 01/06/25 14:48 Dose: Infused Documented By: Admin: 01/06/25 13:57 Dose: 400 mls/hr Documented By: OSCAR Oxycodone HCl (Oxycodone Hcl Ir 5 Mg Tab (Immediate Release)) 10 mg PO NOW STA Stop: 01/06/25 14:26 Last Admin: 01/06/25 14:52 Dose: 10 mg Documented By: CHAVO Imaging Data Attestation: I personally reviewed and interpreted this imaging study as follows: Radiologist's Impression: Chest X-Ray 01/06/25 12:10 XR chest 1V portable HISTORY: 64 years-old Male Sepsis COMPARISON: 11/22/2024 TECHNIQUE: AP view the chest FINDINGS: Cardiac silhouette is enlarged. Thoracolumbar spinal fusion hardware. Moderate hemidiaphragm elevation with mild linear bibasilar atelectasis/scarring. Pulmonary vascular congestion. No pneumothorax, pleural effusion or focal airspace consolidation. Degenerative changes of the shoulders and spine. Chronic appearing left-sided rib fractures. IMPRESSION: 1. Cardiomegaly with pulmonary vascular congestion. 2. Improved aeration of the lungs compared to prior. 3. Right diaphragmatic elevation with mild bibasilar atelectasis. ACT 112: Negative or not required by law. The above report was generated using voice recognition software. It may contain grammatical, syntax or spelling errors. Electronically signed by: Jamison Chaidez M.D. 01/06/2025 12:58 PM Discharge Plan Visit Data Chief Complaint: Leg Injury/Pain Stated Complaint: LEG WOUND, LAC ED Provider: Alen Waggoner ED Midlevel Provider: Na Evans Discharge Problem: Cellulitis, Leg wound, left Forms Stand Alone Forms: [facility] Prescriptions Prescriptions: No Action levothyroxine 200 mcg tablet 200 mcg PO DAILYBB Qty: 90 1RF Rx Instructions: total dose 250 lansoprazole 30 mg capsule,delayed release(DR/EC) 30 mg PO QAM liothyronine 5 mcg tablet 5 mcg PO QPM mirtazapine 15 mg tablet 7.5 mg PO HS Qty: 30 0RF Rx Instructions: to start to cut tablet in 1/2 tonight = 7.5 mg per pt prednisone 1 mg tablet 1 mg PO TID Qty: 90 3RF pregabalin 150 mg capsule 150 mg PO QID Qty: 120 1RF atorvastatin 20 mg tablet 20 mg PO HS Qty: 90 3RF hydrocortisone 5 mg tablet 10 mg PO TID Qty: 90 0RF acetaminophen 325 mg Tablet 650 mg PO Q4H PRN (Reason: fever or pain) Qty: 180 0RF (DME) blood-glucose meter [[employer] Ultra2 Meter] Misc See Rx Instructions .Route Qty: 1 0RF Rx Instructions: As directed polyethylene glycol 3350 [Miralax] 17 gram powder in packet 17 g PO BID PRN (Reason: Constipation) 30 Days Qty: 60 0RF sertraline 100 mg tablet 100 mg PO TID Qty: 90 0RF (DME) OneTouch Ultra Test Strip See Rx Instructions .Route Qty: 100 0RF Rx Instructions: As directed aspirin 81 mg Tablet,Delayed Release (Dr/Ec) 81 mg PO HS Qty: 30 0RF spironolactone [Aldactone] 25 mg tablet 25 mg PO BID Qty: 60 0RF baclofen 20 mg tablet 20 mg PO TID 90 Days Qty: 90 0RF levothyroxine 50 mcg tablet 50 mcg PO DAILYBB Qty: 30 0RF (DME) BD Integra Syringe 3 mL 25 gauge x 1" syringe See Rx Instructions .Route Qty: 100 0RF Rx Instructions: inject teterone every 7 days (DME) lancets [OneTouch UltraSoft 2 Lancet] 30 gauge misc See Rx Instructions .Route Qty: 100 0RF Rx Instructions: As directed Eliquis 5 mg tablet 5 mg PO BID 90 Days Qty: 60 0RF (DME) Wheeled Walker Misc See Rx Instructions .Route Qty: 1 0RF Rx Instructions: As directed with seat mecobalamin (vitamin B12) 1,000 mcg tablet,chewable 5,000 mcg PO QPM Qty: 30 0RF Ozempic 1 mg/dose (4 mg/3 mL) pen injector 1 mg subcut Q7D Qty: 3 0RF Rx Instructions: Thursday testosterone cypionate 100 mg/mL oil 150 mg subcut Q7D Qty: 10 0RF Rx Instructions: Thursday diazepam 5 mg tablet 5 mg PO BID PRN (Reason: anxiety) Qty: 10 0RF insulin glargine [Lantus U-100 Insulin] 100 unit/mL solution 8 unit SC HS ferrous gluconate 324 mg (37.5 mg iron) tablet 324 mg PO Q OTHER DAY oxycodone 5 mg tablet 10 mg PO Q6H PRN (Reason: pain) Patient Comments: Originally written for 5mg by mouth every 6 hours as needed. Pt states he is taking 10mg by mouth every 6 hours as needed Referrals Referrals: David Jacob DO [Primary Care Provider] -
[2025-01-06] MEDS ORDERED: VANCOMYCIN CONSULT ACTIVE PRN (12:11)
--- NOTE | 2025-01-06 12:59 | XRay Report ---
XR chest 1V portable HISTORY: 64 years-old Male Sepsis COMPARISON: 11/22/2024 TECHNIQUE: AP view the chest FINDINGS: Cardiac silhouette is enlarged. Thoracolumbar spinal fusion hardware. Moderate hemidiaphragm elevatio n with mild linear bibasilar atelectasis/scarring. Pulmonary vascular congestion. No pneumothorax, pl eural effusion or focal airspace consolidation. Degenerative changes of the shoulders and spine. Senior Data Modeler vesta appearing left-sided rib fractures. IMPRESSION: 1. Cardiomegaly with pulmonary vascular congestion. 2. Improved aeration of the lungs compared to prior. 3. Right diaphragmatic elevation with mild bibasilar atelectasis. ACT 112: Negative or not required by law. The above report was generated using voice recognition software. It may contain grammatical, syntax o r spelling errors. Electronically signed by: Jamison Chaidez M.D. 01/06/2025 12:58 PM
[2025-01-06] MEDS: ACETAMINOPHEN 1,000 MG/100 ML VIAL IV STA (13:57)
[2025-01-06] MEDS: cefTRIAXone SODIUM 2,000 MG/50 ML BAG IV STA (13:57)
[2025-01-06] MEDS: SODIUM CHLORIDE 0.9% 1,000 ML IV SCH (13:58)
[2025-01-06] MEDS ORDERED: POLYETHYLENE (MIRALAX) 17 GM PACK PO PRN (14:19)
[2025-01-06 14:31] LABS: Alanine Aminotransferase 25.0 U/L (7-52); Alkaline Phosphatase 81.0 U/L (34-104); Anion Gap 8.0 (3-11); Bilirubin,Total 0.5 mg/dl (0.2-1.0); Blood Urea Nitrogen 7.0 mg/dl (6-23); Calcium 8.8 mg/dl (8.6-10.3); Carbon Dioxide 29.0 mmol/L (21-32); Chloride 99.0 mmol/L (98-107); Creatinine Clr Calc Pharmacy 134.6 ml/min; Glucose 248.0 mg/dl (70-99(Fasting)); Magnesium 1.8 mg/dl (1.7-2.4); Potassium 3.9 mmol/L (3.5-5.1); Sodium 136.0 mmol/L (136-145); Total Protein 7.5 gm/dl (6.0-8.3)
[2025-01-06 14:35] LABS: Anisocytosis Present; Hematocrit (blood only) 51.3 % (42.0-52.0); Hemoglobin 15.7 g/dl (14.0-18.0); Immature Granulocytes # (auto) 0.40 K/uL (0.01-0.20); Immature Granulocytes % (auto) 2.2 %; Mean Corpuscular Hemoglobin 24.4 pg (25.0-34.0); Mean Corpuscular Volume 79.7 fL (80.0-100.0); Platelet Count 149 K/uL (130-400); Polychromasia 1+; RDW Standard Deviation 79.5 fL (36.4-46.3); Red Blood Count 6.44 M/uL (4.70-6.10); Toxic Vacuolation 1+; White Blood Count 18.36 K/ul (4.8-10.8)
--- NOTE | 2025-01-06 14:37 | History & Physical Report ---
Date of Service January 06, 2025 Assessment & Plan (1) Sepsis: (2) Generalized weakness: (3) Chronic venous insufficiency of lower extremity: (4) Lymphedema: (5) GERD (gastroesophageal reflux disease): (6) Constipation due to opioid therapy: (7) Lumbar spinal stenosis: (8) Chronic pain disorder: (9) HTN (hypertension), benign: (10) Diabetes mellitus type 2 in obese: (11) Panhypopituitarism: (12) Vitamin B12 deficiency: (13) Vitamin D deficiency: (14) Generalized weakness: (15) Leg laceration: (16) Cellulitis: Plan Leg laceration/cellulitis/sepsis - Regular wound care, wound care consult placed - Sepsis criteria met with fever: 37.9 C, tachycardia, and leukocytosis - CRP pending, Procalcitonin: 0.12 - Empiric therapy w/ Zosyn and vancomycin started in ED. Patient received 1x dose of Ceftriaxone. Narrow based on culture data and sensitivities - Hold sepsis fluids at this time; patient hemodynamically stable with increased vascular congestion and cardiomegaly on CXR; patient with recent echocardiogram in October 2024 showing normal EF in light of similar CXR findings - Wound cx ordered, pending - BCx x2 ordered, pending - CBC, BMP QAM Weakness/ambulatory dysfunction/deconditioning - Multifactorial, etiology likely due to morbidly obesity, hx of lumbar surgery and immobility, polypharmacy with multiple narcotics for pain control - PT/OT consults placed Chronic problems: Lymphedema/chronic venous insufficiency: EHSAN wraps rather than CASSANDRA stockings to prevent compression wound from re-occurring Vitamin B12/D deficiency: Replenish as needed, 01/02: vitamin B12 normal, vitamin D levels low Panhypopituitarism: Continue testosterone, hydrocortisone, and prednisone therapy T2DM: Typically takes 8 units Lantus QHS and weekly semaglutide SQ injections held; pharmacy glycemic consult placed Chronic pain/Lumbar stenosis: Controlled with Oxycodone 10mg Q6H. Continue Diabetic neuropathy: Continue Pregabalin DVT/prophylaxis: Eliquis 5mg BID held for Lovenox 70mg QAM while inpatient. Continue Eliquis at d/c Dispo: Pending PT/OT consults History of Present Illness Chief Complaint: Left leg laceration and cellulitis Primary Care Provider: DO Dalton Guajardogagan Hardingnar is a 64 y/o M with a past medical history of HTN, HLD, T2DM, morbid obesity, sleep apnea w/ CPAP but non-compliant, Hx of DVT in and PE last year and on Eliquis 5mg BID, lymphedema s/p lumbar spine surgeries, immobility, and chronic venous stasis, 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 Patient is arriving from SNF today due to 4cm by 1cm deep laceration of left upper posterior calf secondary to compression stockings. Patient is currently without leg pain and reports that he typically does not get pain at rest, typically he has chronic low back pain when he moves and leg pain when the affected area is touched. Patient is AOX3 and denies headache, fevers, chills, chest pain, palpitations, SOB, cough, wheeze, abdominal pain, nausea, and vomiting. Patient is satting well on 2L O2 via NC but typically does not use any oxygen at baseline. Patient's medications are reviewed and he reports that his chronic pain has been well managed with oxycodone 10mg QID, and that he is no longer on regular fentanyl patch, PO Dilaudid, or Diazepam therapy. 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 ED course: IV Vancomycin and 1x dose IV Ceftriaxone empiric therapy started IV Vancomycin and Zosyn to be continued for broad coverage 1L NSS given 1g IV tylenol given CXR: Pulmonary vascular congestion and cardiomegaly present, with R. hemidiaphragm elevation and mild bibasilar atelectasis, and better aeration of lungs compared to prior imaging. Allergies Allergy/AdvReac Type Severity Reaction Status Date / Time iron dextran complex Allergy Severe HIVES Verified 01/02/25 14:34 cyclobenzaprine Allergy Intermediate N/V Verified 01/02/25 14:34 Home Medications Medication Instructions Recorded Confirmed Type levothyroxine 200 mcg tablet 200 mcg PO DAILYBB #90 tabs 09/12/24 01/06/25 Rx Wheeled Walker #1 ea 12/01/24 01/02/25 Rx acetaminophen 325 mg tablet 650 mg (2 x 325 mg) PO Q4H PRN 12/01/24 01/06/25 Rx fever or pain #180 tabs apixaban 5 mg tablet (Eliquis) 5 mg PO BID 90 days #60 tabs 12/01/24 01/06/25 Rx aspirin 81 mg tablet,delayed 81 mg PO HS #30 tabs 12/01/24 01/06/25 Rx release baclofen 20 mg tablet 20 mg PO TID 90 days #90 tabs 12/01/24 01/06/25 Rx blood sugar diagnostic (OneTouch #100 ea 12/01/24 01/02/25 Rx Ultra Test strips) blood-glucose meter (OneTouch #1 ea 12/01/24 01/02/25 Rx Ultra2 Meter) diazepam 5 mg tablet 5 mg PO BID PRN anxiety #10 tabs 12/01/24 01/06/25 Rx hydrocortisone 5 mg tablet 10 mg (2 x 5 mg) PO TID #90 tabs 12/01/24 01/06/25 Rx lancets 30 gauge (OneTouch #100 ea 12/01/24 01/02/25 Rx UltraSoft 2 Lancet) levothyroxine 50 mcg tablet 50 mcg PO DAILYBB #30 tabs 12/01/24 01/06/25 Rx mecobalamin (vitamin B12) 1,000 5,000 mcg (5 x 1,000 mcg) PO QPM 12/01/24 01/06/25 Rx mcg chewable tablet #30 tabs polyethylene glycol 3350 17 gram 17 g PO BID PRN Constipation 30 12/01/24 01/06/25 Rx oral powder packet (Miralax) days #60 ea semaglutide 1 mg/dose (4 mg/3 mL) 1 mg (0.75 mL) subcut Q7D #3 mL 12/01/24 01/06/25 Rx subcutaneous pen injector sertraline 100 mg tablet 100 mg PO TID #90 tabs 12/01/24 01/06/25 Rx spironolactone 25 mg tablet 25 mg PO BID #60 tabs 12/01/24 01/06/25 Rx (Aldactone) syringe with needle, safety 3 mL #100 ea 12/01/24 01/02/25 Rx 25 gauge x 1" (BD Integra Syringe) testosterone cypionate 100 mg/mL 150 mg (1.5 mL) subcut Q7D #10 mL 12/01/24 01/06/25 Rx intramuscular oil atorvastatin 20 mg tablet 20 mg PO HS #90 tabs 01/02/25 01/06/25 Rx lansoprazole 30 mg capsule,delayed 30 mg PO QAM 01/02/25 01/06/25 History release liothyronine 5 mcg tablet 5 mcg PO QPM 01/02/25 01/06/25 History mirtazapine 15 mg tablet 7.5 mg (1/2 x 15 mg) PO HS #30 tabs 01/02/25 01/06/25 Rx prednisone 1 mg tablet 1 mg PO TID #90 tabs 01/02/25 01/06/25 Rx pregabalin 150 mg capsule 150 mg PO QID #120 caps 01/02/25 01/06/25 Rx ferrous gluconate 324 mg (37.5 mg 324 mg PO Q OTHER DAY 01/06/25 01/06/25 History iron) tablet insulin glargine 100 unit/mL 8 unit SC HS 01/06/25 01/06/25 History subcutaneous solution (Lantus U-100 Insulin) oxycodone 5 mg tablet 10 mg PO Q6H PRN pain 01/06/25 01/06/25 History Past Med/Surg History Problem List (Updated 01/06/25 @ 15:12 by Vladimir Cervantes DO) Cellulitis Leg laceration Opiate dependence, continuous Fluid overload Hospital-acquired pneumonia Acute exacerbation of chronic low back pain (Acute) Chronic anticoagulation On Eliquis for PE. 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 Hyperparathyroidism due to vitamin D deficiency Diabetes mellitus type 2 in obese HTN (hypertension), benign Hyperlipidemia Chronic pain disorder Lumbar myelopathy Lumbar spinal stenosis (Acute) Generalized polyneuropathy Constipation due to opioid therapy Complex sleep apnea syndrome Nocturnal hypoxemia Osteoporosis Urinary incontinence GERD (gastroesophageal reflux disease) Impaired functional mobility and activity tolerance Lymphedema Restless leg syndrome Chronic venous insufficiency of lower extremity Medical History Pulmonary embolism Diabetic ulcer of toe of right foot Chronic osteomyelitis of spine History of recurrent deep vein thrombosis IVC filter Fusion of spine, thoracolumbar region T5-S1 Nocturnal enuresis Micronutrients deficiency Deep vein thrombosis LT. ankle and RT upper arm>only taking aspirin currently History of anesthesia problem "remembers being aware and hearing talking and conversations during his spinal surgery at [facility]" Hyperlipidemia Hypertension History of COVID-19 05/2021, home test, not hosp; headache, weakness, fatigue, no appetite, fever, diarrhea>resolved. Sleep apnea hx cpap>bipap>now not using anything; new study scheduled w/dr dean in 06/2022 Osteomyelitis Spinal stenosis Osteoporosis Status post gamma knife treatment pituitary gland Back pain chronic Pituitary tumor hx Surgical History Hx of tonsillectomy Hx of colonoscopy History of lumbar fusion T5-S1 History of cholecystectomy Family History Sister Breast cancer Multiple sclerosis Father Colorectal cancer Myocardial infarction Brother Myocardial infarction Prostate cancer Pancreatitis Denies family history of Ovarian cancer Social History Smoking Status: Never smoker Second Hand Exposure: Yes (as a child-father smoked); Do You Dip or Chew Tobacco: No; Hx Alcohol Use: No Hx Substance Use: No Preferred Language: Latvian Communication Ability: Effective Visual Impairment: Limited Hearing Ability: Normal Brancher Required: No Beliefs That Will Affect Care: None marital status: Current Living Situation: Spouse current occupational status: other current occupation: Disabled How many Children do You have: 1 Feels Safe at Home: Yes Childhood Exposure to Second-Hand Smoke: Yes Diet: regular caffeine: Yes during the past year weight has: remained stable Dental Care, Regularly: No Physical Activity Frequency: Does not Exercise Seatbelt Use: always Sunscreen Use: Yes Assistive Devices: Walker Physical Exam Physical Exam: General: patient resting comfortably, NAD, non-toxic in appearance, answers questions appropriately. Skin: warm, dry, intact HEENT: NC/AT, anicteric sclera, conjunctiva without injection, moist mucus membranes. Heart: +S1/S2, regular, no m/r/g Lungs: equal air entry bilaterally, no rales/rhonchi/wheezes Abd: +BS, soft, NT/ND Ext: warm, no clubbing/cyanosis. 2+ pitting edema present BL. 4cm by 1cm deep L. calf laceration present on upper proximal posterior calf. Neuro: nonfocal, speech intact, no facial droop, moving all extremities. Results & Data Results & Data Vital Signs (Past 12 Hours) Vital Signs Temp Pulse Pulse Resp BP BP Pulse Ox 01/06/25 14:33 96 H 16 106/74 92 01/06/25 12:57 98 H 01/06/25 12:23 109 H 18 95 01/06/25 12:16 37.9 C H 109 H 18 119/72 95 O2 Del Method 01/06/25 14:33 Room Air 01/06/25 12:57 01/06/25 12:23 Room Air 01/06/25 12:16 Room Air Code Status & VTE Plan VTE Prophylaxis Plan VTE Prophylaxis will be ordered: Yes Supervising Physician Co-Signing Physician Notes The patient was seen by me. The chart was reviewed. Case discussed with Vladimir Cervantes DO. Agree with assessment and plan Resident Activity Tracking Resident Involvement: Resident Care Provided Care Provided: Adult Hospital Medicine (1) Sepsis Sepsis type: sepsis due to unspecified organism Qualified Code(s): A41.9 - Sepsis, unspecified organism (7) Lumbar spinal stenosis Neurogenic claudication status: unspecified Qualified Code(s): M48.061 - Spinal stenosis, lumbar region without neurogenic claudication
[2025-01-06] MEDS: VANCOMYCIN HCL 2,750 MG in SODIUM CHLORIDE 0.9% 500 ML IV STA (14:49)
[2025-01-06 16:03] LABS: Appearance Urine Clear (Clear); Bacteria Urine Automated None Seen (None Seen); Epithelial Cell Urine Auto 0-2 /hpf (0-2); Glucose Urine UA 1+ (Negative); RBC Urine Automated 0-2 /hpf (0-2); WBC Urine Automated 0-5 /hpf (0-5)
[2025-01-06] MEDS ORDERED: ACETAMINOPHEN 325 MG TAB PO PRN (17:10)
[2025-01-06] MEDS ORDERED: PHARMACY GLYCEMIC MGMT CONSULT PRN (17:10)
[2025-01-06] MEDS: PREGABALIN 150 MG CAP PO SCH (18:17)
[2025-01-06] MEDS: 4.5GM X1 IV STA (18:38)
[2025-01-06] MEDS: TESTOSTERONE CYPIONATE 100 MG/ML SQ SCH (19:01)
[2025-01-06] MEDS: INSULIN ASPART PER UNIT CHARGE SC SCH (19:35)
[2025-01-06] MEDS ORDERED: LANTUS PER UNIT CHARGE SC SCH (21:00)
[2025-01-06] MEDS: BACLOFEN 20 MG TAB PO SCH (21:56)
[2025-01-06] MEDS: LANTUS PER UNIT CHARGE SC SCH (21:56)
[2025-01-06] MEDS: MIRTAZAPINE TAB 15 MG TAB PO SCH (21:56)
[2025-01-06] MEDS: SPIRONOLACTONE 25 MG TAB PO SCH (21:58)
[2025-01-06] MEDS: LIOTHYRONINE SODIUM 5 MCG TAB PO SCH (21:58)
[2025-01-06] MEDS: SERTRALINE HCL 100 MG TABLET PO SCH (21:58)
[2025-01-06] MEDS: HYDROCORTISONE 10 MG TAB PO SCH (21:59)
[2025-01-06] MEDS: PIPERACILLIN/TAZOBACTAM 4.5 GM/100 ML BAG IV SCH (23:32)
[2025-01-06] MEDS: DAPTOmycin 600 MG in SYRINGE 0 ML IV SCH (23:32)
[2025-01-07] MEDS: LEVOTHYROXINE SODIUM 50 MCG TABLET PO SCH (05:48)
[2025-01-07] MEDS: LEVOTHYROXINE SODIUM 200 MCG TABLET PO SCH (05:48)
[2025-01-07] MEDS: ENOXAPARIN 80 MG/0.8 ML SYR SQ SCH (08:05)
[2025-01-07] MEDS ORDERED: GLUCAGON FOR INJ 1 MG VIAL SQ PRN (08:48)
[2025-01-07] MEDS ORDERED: CARBOHYDRATES FOR HYPOGLYCEMIA PO PRN (08:48)
[2025-01-07] MEDS ORDERED: DEXTROSE 50% 50 ML SYRINGE IV PRN (08:48)
[2025-01-07] MEDS ORDERED: GLUCOSE 40% GEL 15 GM TUBE PO PRN (08:48)
[2025-01-07] MEDS ORDERED: GLUCOSE 10 TAB/TUBE PO PRN (08:48)
[2025-01-07] MEDS ORDERED: ENOXAPARIN 0.5 MG/KG SQ SCH (09:00)
[2025-01-07] MEDS: PREGABALIN 150 MG CAP PO SCH (09:05)
[2025-01-07] MEDS: POLYETHYLENE (MIRALAX) 17 GM PACK PO SCH (09:22)
[2025-01-07] MEDS: INSULIN HUMAN NPH SC SCH (09:36)
[2025-01-07] MEDS: INSULIN ASPART PER UNIT CHARGE SC SCH (09:36)
[2025-01-07] MEDS: TESTOSTERONE CYPIONATE IM 200 MG/ML VIAL IM SCH (09:42)
--- NOTE | 2025-01-07 11:06 | Hospitalist Progress Note ---
Date of Service January 07, 2025 Assessment & Plan (1) Cellulitis: Plan: Left upper posterior calf area from skin defect related to elastic compression from CASSANDRA hose. Currently on Zosyn and daptomycin, day 2. Wound care consultation requested. (2) Sepsis: Plan: Present on admission. Treat underlying cellulitis (3) Generalized weakness: Plan: Supportive care. OT and PT assessments requested (4) Chronic venous insufficiency of lower extremity: Plan: With resultant chronic edema. Going forward, will use ulises wraps to compress the legs and avoid CASSANDRA hose usage to prevent additional trauma from elastic bands (5) GERD (gastroesophageal reflux disease): (6) Constipation due to opioid therapy: (7) Lumbar spinal stenosis: Plan: Causing chronic low back pain. He is opioid dependent (8) Chronic pain disorder: Plan: Opioid dependent (9) HTN (hypertension), benign: Plan: Stable. Continue current medical management (10) Diabetes mellitus type 2 in obese: Plan: ADA diet. Sliding scale coverage. Basal insulin therapy. Will avoid nighttime Lantus to prevent nocturnal hypoglycemia. He is now on NPH insulin twice daily along with sliding scale coverage and ADA diet. (11) Panhypopituitarism: Plan: Steroid-dependent. Stable (12) SINA (iron deficiency anemia): Plan: Oral iron replacement bid. Plan Hopeful discharge back to home sometime this coming week. Admission and Anticipated Discharge Date Admission Date: January 06, 2025 Subjective Alert and oriented. No distress. He remains on intravenous Zosyn and daptomycin, day 2. Blood cultures obtained on admission January 06 are negative to date. Will resume oral iron replacement due to his history of iron deficiency anemia. Nighttime Lantus discontinued due to potential for complications and he is now on NPH insulin twice daily. Will eventually use Ulises wraps on both lower extremities for the chronic edema rather than CASSANDRA hose to prevent recurrence of skin wounds. Review of Systems 2 Review of Systems: Constitutionalno fever or chills ENTno blurred vision, no double vision, no epistaxis, no sore throat Respiratoryno cough, no wheezing, no shortness of breath Cardiacno palpitations, no chest pain, no syncope Lizzy nausea, vomiting, diarrhea, melena, hematochezia GUno urinary retention, no urinary incontinence, no dysuria, no hematuria Musculoskeletalno joint pain, no muscle tenderness. Chronic low back pain Skinno bruising, no rashes, no pruritus Neurono isolated weakness, no paresthesia Psychno depression, no anxiety Physical Exam 2 Physical Exam: General-alert and oriented x3, no fever, no chills HEENT-head atraumatic and normocephalic, pupils equal and reactive to light, extraocular muscles intact Neck-no lymphadenopathy or thyromegaly, trachea midline Chest-clear to auscultation. No rales, wheezing or rhonchi Cardiac-regular rate and rhythm, normal S1 and S2 Abdomen-normal bowel sounds, no hepatosplenomegaly Extremities-chronic bilateral lower extremity edema below the knees. Linear skin defect upper outer area of the right calf from the CASSANDRA hose elastic band with associated cellulitis evident in the area Neuro-cranial nerves II through XII intact, motor and sensory function within normal limits, strength symmetrical, no focal deficits Psych-depressed affect Results & Data Results & Data Vital Signs (Past 12 Hours) Vital Signs Temp Pulse Pulse Resp BP Pulse Ox O2 Del Method 01/07/25 07:46 36.4 C L 60 18 117/71 95 Nasal Cannula 01/07/25 05:31 68 01/07/25 02:56 36.6 C 79 18 132/75 92 Nasal Cannula 01/07/25 00:43 71 O2 Flow Rate 01/07/25 07:46 2 01/07/25 05:31 01/07/25 02:56 2 01/07/25 00:43 Laboratory Results 01/06/25 13:58 01/06/25 13:58 PG Care Time/CCT Total # of Minutes Spent Total Time Spent with Patient: Total time spent is greater than 50% in coordination of care (as documented) at patient's floor/unit and/or counseling patient: Coding Level of Care Code 99836 SUB INP/OBS CARE 3/50MIN Diagnoses Cellulitis L03.90 Sepsis, due to unspecified organism A41.9 Sepsis type: sepsis due to unspecified organism Generalized weakness R53.1 Chronic venous insufficiency of lower extremity I87.2 GERD (gastroesophageal reflux disease) K21.9 Constipation due to opioid therapy K59.03; T40.2X5A Lumbar spinal stenosis M48.061 Neurogenic claudication status: unspecified Chronic pain disorder G89.4 HTN (hypertension), benign I10 Diabetes mellitus type 2 in obese E11.69; E66.9 Panhypopituitarism E23.0 SINA (iron deficiency anemia) D50.9 (2) Sepsis Sepsis type: sepsis due to unspecified organism Qualified Code(s): A41.9 - Sepsis, unspecified organism (7) Lumbar spinal stenosis Neurogenic claudication status: unspecified Qualified Code(s): M48.061 - Spinal stenosis, lumbar region without neurogenic claudication
[2025-01-07] MEDS: FERROUS GLUCONATE 324 MG TAB PO SCH (17:13)
[2025-01-07] MEDS ORDERED: LANTUS PER UNIT CHARGE SC SCH (21:00)
[2025-01-08 06:30] LABS: Hematocrit (blood only) 41.7 % (42.0-52.0); Hemoglobin 12.9 g/dl (14.0-18.0); Mean Corpuscular Hemoglobin 24.8 pg (25.0-34.0); Mean Corpuscular Volume 80.2 fL (80.0-100.0); Platelet Count 112 K/uL (130-400); RDW Standard Deviation 77.5 fL (36.4-46.3); Red Blood Count 5.20 M/uL (4.70-6.10); White Blood Count 7.28 K/ul (4.8-10.8)
[2025-01-08 06:36] LABS: Anion Gap 4.0 (3-11); Blood Urea Nitrogen 6.0 mg/dl (6-23); Calcium 8.6 mg/dl (8.6-10.3); Carbon Dioxide 28.0 mmol/L (21-32); Chloride 104.0 mmol/L (98-107); Creatinine Clr Calc Pharmacy 142.1 ml/min; Glucose 173.0 mg/dl (70-99(Fasting)); Potassium 3.9 mmol/L (3.5-5.1); Sodium 136.0 mmol/L (136-145)
[2025-01-08 06:52] LABS: Anisocytosis Present; Immature Granulocytes # (auto) 0.12 K/uL (0.01-0.20); Immature Granulocytes % (auto) 1.6 %; Polychromasia 1+
[2025-01-08] MEDS: APIXABAN 5 MG TABLET PO SCH (08:08)
--- NOTE | 2025-01-08 11:53 | Hospitalist Progress Note ---
Date of Service January 08, 2025 Assessment & Plan (1) Cellulitis: Plan: Left upper posterior calf area from skin defect caused by elastic compression from CASSANDRA hose. Intravenous antibiotics have been de-escalated to Ancef. Continue local wound care. Switch to cephalexin orally at discharge. (2) Sepsis: Plan: Present on admission. Now resolved. Continue to treat underlying left calf cellulitis. (3) Generalized weakness: Plan: Supportive care. OT and PT while hospitalized. (4) Chronic venous insufficiency of lower extremity: Plan: With resultant chronic edema. Going forward, will use gerald wraps to compress the legs and avoid CASSANDRA hose usage to prevent additional trauma from elastic bands (5) Lumbar spinal stenosis: Plan: Causing chronic low back pain. He is opioid dependent (6) Chronic pain disorder: Plan: Opioid dependent (7) HTN (hypertension), benign: Plan: Stable. Continue current medical management (8) Diabetes mellitus type 2 in obese: Plan: ADA diet. Sliding scale coverage. Basal insulin therapy. Will avoid nighttime Lantus to prevent nocturnal hypoglycemia. He is now on NPH insulin twice daily along with sliding scale coverage and ADA diet. (9) Panhypopituitarism: Plan: Steroid-dependent. Stable (10) SINA (iron deficiency anemia): Plan: Oral iron replacement bid. Plan Hopeful discharge back to home with home health services on an oral antibiotic tomorrow, January 09 Admission and Anticipated Discharge Date Admission Date: January 06, 2025 Subjective Alert and oriented. No distress. Glucose is down to 173 with NPH insulin. Antibiotics have been de-escalated to IV Ancef. Blood culture obtained on January 06 remains negative. White blood cell count is now normal at 7000. Hopefully he can go home tomorrow, January 09, on oral Keflex with home health services Review of Systems Review of Systems: Constitutionalno fever or chills ENTno blurred vision, no double vision, no epistaxis, no sore throat Respiratoryno cough, no wheezing, no shortness of breath Cardiacno palpitations, no chest pain, no syncope Lizzy nausea, vomiting, diarrhea, melena, hematochezia GUno urinary retention, no urinary incontinence, no dysuria, no hematuria Musculoskeletalno joint pain, no muscle tenderness. Chronic low back pain. Skinno bruising, no rashes, no pruritus. Wound left upper posterior calf from CASSANDRA hose elastic band. Surrounding cellulitis has markedly improved Neurono isolated weakness, no paresthesia Psychno depression, no anxiety Physical Exam Physical Exam: General-alert and oriented x3, no fever, no chills HEENT-head atraumatic and normocephalic, pupils equal and reactive to light, extraocular muscles intact Neck-no lymphadenopathy or thyromegaly, trachea midline Chest-clear to auscultation. No rales, wheezing or rhonchi Cardiac-regular rate and rhythm, normal S1 and S2 Abdomen-normal bowel sounds, no hepatosplenomegaly Extremities-chronic bilateral lower extremity edema below the knees. Linear skin defect posterior upper left calf area from the CASSANDRA hose elastic band. Surrounding cellulitis has markedly improved Neurocranial nerves II through XII intact, motor and sensory function within normal limits, strength symmetrical, no focal deficits Psych-depressed affect has improved Results & Data Results & Data Vital Signs (Past 12 Hours) Vital Signs Temp Pulse Pulse Resp BP Pulse Ox O2 Del Method 01/08/25 07:44 36.7 C 64 16 117/72 92 Room Air 01/08/25 05:17 62 01/08/25 04:00 36.5 C 73 18 106/65 92 Room Air PG Care Time/CCT Total # of Minutes Spent Total Time Spent with Patient: Total time spent is greater than 50% in coordination of care (as documented) at patient's floor/unit and/or counseling patient: Coding Level of Care Code 27475 SUB INP/OBS CARE 3/50MIN Diagnoses Cellulitis L03.90 Sepsis, due to unspecified organism A41.9 Sepsis type: sepsis due to unspecified organism Generalized weakness R53.1 Chronic venous insufficiency of lower extremity I87.2 Lumbar spinal stenosis M48.061 Neurogenic claudication status: unspecified Chronic pain disorder G89.4 HTN (hypertension), benign I10 Diabetes mellitus type 2 in obese E11.69; E66.9 Panhypopituitarism E23.0 SINA (iron deficiency anemia) D50.9 (2) Sepsis Sepsis type: sepsis due to unspecified organism Qualified Code(s): A41.9 - Sepsis, unspecified organism (5) Lumbar spinal stenosis Neurogenic claudication status: unspecified Qualified Code(s): M48.061 - Spinal stenosis, lumbar region without neurogenic claudication
[2025-01-08 20:41] VITALS: RESP 18
[2025-01-08] MEDS: POLYETHYLENE (MIRALAX) 17 GM PACK PO ONE (22:20)
--- NOTE | 2025-01-09 07:48 | Electrocardiogram Report ---
Test Reason : Blood Pressure : */* mmHG Vent. Rate : 108 BPM Atrial Rate : 108 BPM P-R Int : 148 ms QRS Dur : 80 ms QT Int : 320 ms P-R-T Axes : -14 -8 -13 degrees QTcB Int : 428 ms Sinus tachycardia Inferior infarct (cited on or before 06-Nov-2024) Abnormal ECG When compared with ECG of 06-Nov-2024 14:42, No significant change was found Confirmed by Maritza Coles ([id number]) on 01/09/2025 7:48:28 AM Referred By: Nurse Wound Care Confirmed By: Maritza Coles
[2025-01-09 08:05] LABS: Hematocrit (blood only) 41.9 % (42.0-52.0); Hemoglobin 13.2 g/dl (14.0-18.0); Mean Corpuscular Hemoglobin 25.2 pg (25.0-34.0); Mean Corpuscular Volume 80.1 fL (80.0-100.0); Platelet Count 124 K/uL (130-400); RDW Standard Deviation 77.6 fL (36.4-46.3); Red Blood Count 5.23 M/uL (4.70-6.10); White Blood Count 7.59 K/ul (4.8-10.8)
[2025-01-09 08:07] LABS: Anion Gap 4.0 (3-11); Blood Urea Nitrogen 7.0 mg/dl (6-23); Calcium 8.7 mg/dl (8.6-10.3); Carbon Dioxide 30.0 mmol/L (21-32); Chloride 104.0 mmol/L (98-107); Creatinine Clr Calc Pharmacy 131.4 ml/min; Glucose 144.0 mg/dl (70-99(Fasting)); Potassium 4.1 mmol/L (3.5-5.1); Sodium 138.0 mmol/L (136-145)
--- NOTE | 2025-01-09 08:07 | Electrocardiogram Report ---
Test Reason : Blood Pressure : */* mmHG Vent. Rate : 75 BPM Atrial Rate : 75 BPM P-R Int : 152 ms QRS Dur : 86 ms QT Int : 376 ms P-R-T Axes : 3 8 48 degrees QTcB Int : 419 ms Normal sinus rhythm Nonspecific ST abnormality Abnormal ECG When compared with ECG of 06-Jan-2025 12:01, (unconfirmed) Criteria for Inferior infarct are no longer Present T wave inversion no longer evident in Inferior leads Confirmed by Maritza Coles ([place]) on 01/09/2025 8:06:59 AM Referred By: Nurse Wound Care Confirmed By: Maritza Coles
[2025-01-09 08:32] LABS: Anisocytosis Present; Immature Granulocytes # (auto) 0.16 K/uL (0.01-0.20); Immature Granulocytes % (auto) 2.1 %; Polychromasia 1+
[2025-01-09 11:47] VITALS: TEMP 97.7
--- NOTE | 2025-01-09 13:47 | Discharge Summary ---
Discharge Summary Date of Service January 09, 2025 Principal Dx & Hospital Course #1 = Principal Diagnosis (1) Cellulitis: Left upper posterior calf area from skin defect caused by elastic compression from CASSANDRA hose. Intravenous antibiotics have been de-escalated to Ancef and convert to po keflex to complete 10 day course on discharge. Continue local wound care daily and visiting nurse to monitor. Also with buttocks pressure wound-offload pressure, appreciate income tax auditor advice (2) Sepsis: Present on admission with leukocytosis, fever.. Now resolved. Continue to treat underlying left calf cellulitis Blood cxs remain no growth at discharge (3) Generalized weakness: Supportive care. OT and PT while hospitalized recommend home health (4) Chronic venous insufficiency of lower extremity: With resultant chronic edema. Going forward, will use gerald wraps to compress the legs and avoid CASSANDRA hose usage to prevent additional trauma from elastic bands (5) Lumbar spinal stenosis: Causing chronic low back pain. He is opioid dependent, continue Lyrica (6) Chronic pain disorder: Opioid dependent (7) Diabetes mellitus type 2 in obese: continue ozempic, Lantus (8) Panhypopituitarism: Steroid-dependent. Stable continue home LT4,LT3, testosterone, HC, and prednisone (9) SINA (iron deficiency anemia): Oral iron replacement Mild thrombocytopenia likely from sepsis now recovering f/u with PCP Plan DVT proph-has h/o DVT--> continue Eliquis Dispo-dc to home with home health Notes For Next Care Provider None Medication Changes From Visit Added Keflex 500mg po QID x 6 more days Admission HPI Per Admitting Provider Mahesh Hughes is a 64 y/o M with a past medical history of HTN, HLD, T2DM, morbid obesity, sleep apnea w/ CPAP but non-compliant, Hx of DVT in and PE last year and on Eliquis 5mg BID, lymphedema s/p lumbar spine surgeries, immobility, and chronic venous stasis, 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 Patient is arriving from [facility] today due to 4cm by 1cm deep laceration of left upper posterior calf secondary to compression stockings. Patient is currently without leg pain and reports that he typically does not get pain at rest, typically he has chronic low back pain when he moves and leg pain when the affected area is touched. Patient is AOX3 and denies headache, fevers, chills, chest pain, palpitations, SOB, cough, wheeze, abdominal pain, nausea, and vomiting. Patient is satting well on 2L O2 via NC but typically does not use any oxygen at baseline. Patient's medications are reviewed and he reports that his chronic pain has been well managed with o xycodone 10mg QID, and that he is no longer on regular fentanyl patch, PO Dilaudid, or Diazepam therapy. 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 ED course: IV Vancomycin and 1x dose IV Ceftriaxone empiric therapy started IV Vancomycin and Zosyn to be continued for broad coverage 1L NSS given 1g IV tylenol given CXR: Pulmonary vascular congestion and cardiomegaly present, with R. hemidiaphragm elevation and mild bibasilar atelectasis, and better aeration of lungs compared to prior imaging. Discharge Exam Constitutional WD/WN, vitals as above Respiratory normal respiratory effort, lungs clear to auscultation Cardiovascular Rate/Rhythm: regular rate and regular rhythm Heart Sounds: no murmur Skin left medial calf with 4 x 1 cm linear laceration with scant oozing blood, no surrounding erythema, no purulent drainage Discharge Plan Discharge Items Patient Disposition: Home - Home Health Services Reason For Visit: LEG LACERATION/CELLULITIS Discharge Diagnosis: Leg wound, cellulitis Sepsis Condition on Discharge: Good Activity: As commented below Lifting: Gradually increase as tolerated Bathing Comment: Do not soak the leg wound in tubs Exercise/Sports: Gradually increase as tolerated Non-emergency contact: Primary Care Provider Call non-emergency contact if: you have any medication questions, your symptoms worsen, you have a fever, your temperature is above 101, your wound has increased redness, your wound has increased drainage and your wound pain has increased Follow-up/Referrals: David Jacob DO [Primary Care Provider] - 01/12/25 2:00 pm (Hospital follow up on January 12 at 2 pm.) Diet: Carb Consistent or DM2 Addtl Attending Provider Instructions: Finish out the course of antibiotics with cephalexin four times a day for 6 more days. Continue daily wound care as directed. The visiting nurse can monitor your wound for healing or problems. Pending Studies at Discharge: Yes (Final blood culture results-no growth to date) Stand-Alone Forms: My [facility], Smoking Cessation Medications and DC Order Prescriptions: New cephalexin 500 mg capsule 500 mg PO Q6H 6 Days Qty: 24 0RF Continued levothyroxine 200 mcg tablet 200 mcg PO DAILYBB Qty: 90 1RF Rx Instructions: total dose 250 lansoprazole 30 mg capsule,delayed release(DR/EC) 30 mg PO QAM liothyronine 5 mcg tablet 5 mcg PO QPM mirtazapine 15 mg tablet 7.5 mg PO HS Qty: 30 0RF Rx Instructions: to start to cut tablet in 1/2 tonight = 7.5 mg per pt prednisone 1 mg tablet 1 mg PO TID Qty: 90 3RF pregabalin 150 mg capsule 150 mg PO QID Qty: 120 1RF atorvastatin 20 mg tablet 20 mg PO HS Qty: 90 3RF hydrocortisone 5 mg tablet 10 mg PO TID Qty: 90 0RF acetaminophen 325 mg Tablet 650 mg PO Q4H PRN (Reason: fever or pain) Qty: 180 0RF (DME) blood-glucose meter [Your Style UnzippedTouch Ultra2 Meter] Misc See Rx Instructions .Route Qty: 1 0RF Rx Instructions: As directed polyethylene glycol 3350 [Miralax] 17 gram powder in packet 17 g PO BID PRN (Reason: Constipation) 30 Days Qty: 60 0RF sertraline 100 mg tablet 100 mg PO TID Qty: 90 0RF (DME) OneTouch Ultra Test Strip See Rx Instructions .Route Qty: 100 0RF Rx Instructions: As directed aspirin 81 mg Tablet,Delayed Release (Dr/Ec) 81 mg PO HS Qty: 30 0RF spironolactone [Aldactone] 25 mg tablet 25 mg PO BID Qty: 60 0RF baclofen 20 mg tablet 20 mg PO TID 90 Days Qty: 90 0RF levothyroxine 50 mcg tablet 50 mcg PO DAILYBB Qty: 30 0RF (DME) BD Integra Syringe 3 mL 25 gauge x 1" syringe See Rx Instructions .Route Qty: 100 0RF Rx Instructions: inject teterone every 7 days (DME) lancets [Your Style UnzippedTouch UltraSoft 2 Lancet] 30 gauge misc See Rx Instructions .Route Qty: 100 0RF Rx Instructions: As directed Eliquis 5 mg tablet 5 mg PO BID 90 Days Qty: 60 0RF (DME) Wheeled Walker Misc See Rx Instructions .Route Qty: 1 0RF Rx Instructions: As directed with seat mecobalamin (vitamin B12) 1,000 mcg tablet,chewable 5,000 mcg PO QPM Qty: 30 0RF Ozempic 1 mg/dose (4 mg/3 mL) pen injector 1 mg subcut Q7D Qty: 3 0RF Rx Instructions: Thursday testosterone cypionate 100 mg/mL oil 150 mg subcut Q7D Qty: 10 0RF Rx Instructions: Thursday diazepam 5 mg tablet 5 mg PO BID PRN (Reason: anxiety) Qty: 10 0RF insulin glargine [Lantus U-100 Insulin] 100 unit/mL solution 8 unit SC HS ferrous gluconate 324 mg (37.5 mg iron) tablet 324 mg PO Q OTHER DAY oxycodone 5 mg tablet 10 mg PO Q6H PRN (Reason: pain) Patient Comments: Originally written for 5mg by mouth every 6 hours as needed. Pt states he is taking 10mg by mouth every 6 hours as needed Discharge Orders: Discharge Order (Routine); Ordered 01/09/25 Ordered By: Gia Ortez/Other Patient Handouts: Nutrition for Wound Healing, Managing Type 2 Diabetes Admission Data Admit Date/Time: 01/06/25 14:35 Attending Provider: Gia Campa Admit Provider: Vladimir Cervantes Primary Care Provider: David Jacob Other Providers: Isaac Prescott; [facility] Hospital Stay Data Consultations 01/06/25 13:11 ED Decision to Admit Stat Pending Results Patient Have Any Pending Studies at Discharge: Yes (Final blood culture results- no growth to date) Discharge Instructions Given to Patient (Per Discharging Provider) Finish out the course of antibiotics with cephalexin four times a day for 6 more days. Continue daily wound care as directed. The visiting nurse can monitor your wound for healing or problems. Total Time Total Time Spent Total Time Spent (In Minutes): 35 min Total Time Includes: Examination of the Patient, Discharge Planning, Medication Reconciliation, Communication With Other Providers and Other Coding Level of Care Code 26175 INP/OBS DISCH >30 MIN Diagnoses Cellulitis L03.90 Sepsis, due to unspecified organism A41.9 Sepsis type: sepsis due to unspecified organism Generalized weakness R53.1 Chronic venous insufficiency of lower extremity I87.2 Lumbar spinal stenosis M48.061 Neurogenic claudication status: unspecified Chronic pain disorder G89.4 Diabetes mellitus type 2 in obese E11.69; E66.9 Panhypopituitarism E23.0 SINA (iron deficiency anemia) D50.9
[2025-01-09 14:46] VITALS: BP 124/76; PULSE 58; O2SAT 93
== END 2025-01-09 16:55 | disposition home health service (06) | DRG 872 ==
LOC: SUATTDRO → ED 11:51 → EDINP 14:35 → SUATTDRO 14:35 → 2N 17:11

== ENCOUNTER 2025-04-18 09:06 | Inpatient (IN) ==
--- NOTE | 2025-04-18 10:07 | XRay Report ---
XR chest 1V portable CLINICAL HISTORY: weakness COMPARISON STUDY: 01/06/2025 FINDINGS: Thoracic metallic fusion again seen. Heart size and pulmonary vasculature are normal. Inspi ration is shallow. No consolidation or pleural effusion seen. No pneumothorax. IMPRESSION: No acute findings. ACT 112: Negative or not required by law. Electronically signed by: Jake Martinez M.D. 04/18/2025 10:05 AM
[2025-04-18 10:13] LABS: Hematocrit (blood only) 51.7 % (42.0-52.0); Hemoglobin 15.7 g/dL (14.0-18.0); Mean Corpuscular Hemoglobin 22.5 pg (25.0-34.0); Mean Corpuscular Volume 74.0 fL (80.0-100.0); Platelet Count 163 K/uL (130-400); RDW Standard Deviation 56.3 fL (36.4-46.3); Red Blood Count 6.99 M/uL (4.70-6.10); White Blood Count 12.72 K/ul (4.8-10.8)
[2025-04-18 10:19] LABS: Albumin Level 3.6 gm/dl (3.4-5.0); Anion Gap 11.0 (3-11); Bilirubin,Total 1.0 mg/dl (0.2-1.0); Calcium 9.3 mg/dl (8.6-10.3); Carbon Dioxide 20.0 mmol/L (21-32); Chloride 102.0 mmol/L (98-107); Magnesium 1.5 mg/dl (1.7-2.4); Potassium 3.8 mmol/L (3.5-5.1); Sodium 133.0 mmol/L (136-145)
[2025-04-18 10:26] LABS: Alanine Aminotransferase 20.0 U/L (7-52); Albumin Globulin Ratio 1.0 (0.9-2); Alkaline Phosphatase 68.0 U/L (34-104); Blood Urea Nitrogen 8.0 mg/dl (6-23); Creatinine Clr Calc Pharmacy 57.4 ml/min; Globulin 3.5 gm/dl (2.5-4.0); Glucose 190.0 mg/dl (70-99(Fasting)); Total Protein 7.1 gm/dl (6.0-8.3)
[2025-04-18 10:33] LABS: INR 1.1 (0.9-1.1); Prothrombin Time 12.0 Seconds (9.0-12.0)
[2025-04-18 10:39] LABS: Anisocytosis Present; Immature Granulocytes # (auto) 0.20 K/uL (0.01-0.20); Immature Granulocytes % (auto) 1.6 %; Polychromasia 1+; Tear Drop Cells 1+; Thyroid Stimulating Hormone 0.023 uIu/ml (0.300-4.500); Toxic Vacuolation 1+
[2025-04-18] MEDS: HYDROCORTISONE SOD SUCCINATE 100 MG/2 ML VIAL IV STA (10:41)
[2025-04-18] MEDS: ONDANSETRON INJ 2 MG/ML 2 ML VIAL IV STA (10:42)
[2025-04-18] MEDS: MoRPHine SULFATE 4 MG/ML 1 ML CARP\\VIAL IV STA (10:42)
[2025-04-18] MEDS: CEFEPIME 2000MG 2,000 MG/20 ML SYR IV STA (10:45)
--- NOTE | 2025-04-18 11:08 | Emergency Department Note ---
History of Present Illness General Chief complaint: Weakness Stated complaint: WEAKNESS, NAUSEA Time Seen by Provider: 04/18/25 09:33 Source: patient Mode of arrival: EMS Limitations: no limitations History of Present Illness Maximum Pain Intensity: 9 Patient is a 64-year-old male with multiple comorbidities including panhypopituitarism and chronic lumbar pain status post multiple spinal surgeries who presents for nausea, vomiting, hot and cold flashes as well as lower back pain. He takes chronic steroids and states that when he gets a "cold" he starts to get the symptoms. He took 15 mg of hydrocortisone as a stress dose supplementation this morning. He also states that when they were transferring him from the ambulance gurney to the bed it exacerbated his lower back pain and he is having spasm in his left leg. He denies any documented fever, headache, neck pain, chest pain, shortness of breath, abdominal pain. He does report some constipation which is not new for him. No saddle anesthesia. No new numbness or weakness in his lower extremities. No bowel or bladder incontinence reported. He did not take his chronic pain medication this morning. Home Medications Medication Instructions Recorded Confirmed Type levothyroxine 200 mcg tablet 200 mcg PO DAILYBB #90 tabs 09/12/24 03/28/25 Rx Wheeled Walker #1 ea 12/01/24 03/23/25 Rx acetaminophen 325 mg tablet 650 mg (2 x 325 mg) PO Q4H PRN 12/01/24 03/28/25 Rx fever or pain #180 tabs aspirin 81 mg tablet,delayed 81 mg PO HS #30 tabs 12/01/24 03/28/25 Rx release blood sugar diagnostic (OneTouch #100 ea 12/01/24 03/23/25 Rx Ultra Test strips) blood-glucose meter (OneTouch #1 ea 12/01/24 03/23/25 Rx Ultra2 Meter) lancets 30 gauge (OneTouch #100 ea 12/01/24 03/23/25 Rx UltraSoft 2 Lancet) levothyroxine 50 mcg tablet 50 mcg PO DAILYBB #30 tabs 12/01/24 03/28/25 Rx mecobalamin (vitamin B12) 1,000 5,000 mcg (5 x 1,000 mcg) PO QPM 12/01/24 03/28/25 Rx mcg chewable tablet #30 tabs polyethylene glycol 3350 17 gram 17 g PO BID PRN Constipation 30 12/01/24 03/28/25 Rx oral powder packet (Miralax) days #60 ea syringe with needle, safety 3 mL #100 ea 12/01/24 03/23/25 Rx 25 gauge x 1" (BD Integra Syringe) atorvastatin 20 mg tablet 20 mg PO HS #90 tabs 01/02/25 03/28/25 Rx lansoprazole 30 mg capsule,delayed 30 mg PO QAM 01/02/25 03/28/25 History release prednisone 1 mg tablet 1 mg PO TID #90 tabs 01/02/25 03/28/25 Rx ferrous gluconate 324 mg (37.5 mg 324 mg PO Q OTHER DAY 01/06/25 03/28/25 History iron) tablet insulin glargine 100 unit/mL 8 unit SC HS 01/06/25 03/23/25 History subcutaneous solution (Lantus U-100 Insulin) sulfamethoxazole 400 1 tab PO DAILY #60 tabs 01/20/25 03/28/25 Rx mg-trimethoprim 80 mg tablet (Bactrim) mirtazapine 7.5 mg tablet 7.5 mg PO HS #60 tabs 01/23/25 03/28/25 Rx oxycodone 5 mg tablet 10 mg (2 x 5 mg) PO TID PRN pain 01/23/25 03/28/25 Rx #42 tabs semaglutide 2 mg/dose (8 mg/3 mL) 2 mg (0.75 mL) subcut Q7D #3 mL 02/15/25 03/28/25 Rx subcutaneous pen injector liothyronine 5 mcg tablet 5 mcg PO QPM #60 tabs 03/14/25 03/28/25 Rx pregabalin 150 mg capsule 150 mg PO QID #120 caps 03/14/25 03/28/25 Rx spironolactone 25 mg tablet 25 mg PO BID #60 tabs 03/14/25 03/28/25 Rx (Aldactone) hydrocortisone 5 mg tablet 10 mg (2 x 5 mg) PO TID #540 tabs 03/21/25 03/28/25 Rx buprenorphine HCl 75 mcg buccal 150 mcg buccal Q12H 03/28/25 03/28/25 History film (Belbuca) cholecalciferol (vitamin D3) 1,250 1,250 mcg PO .weekly #14 caps 03/28/25 03/28/25 Rx mcg (50,000 unit) capsule metformin 500 mg tablet,extended 1,000 mg (2 x 500 mg) PO BID #240 03/28/25 03/28/25 Rx release 24 hr tabs testosterone cypionate 200 mg/mL 120 mg (0.6 mL) subcut .Q10 days 03/28/25 03/28/25 Rx intramuscular syringe #9 mL sertraline 100 mg tablet 100 mg PO TID #270 tabs 04/06/25 Rx apixaban 5 mg tablet (Eliquis) 5 mg PO BID 90 days #60 tabs 04/11/25 Rx needle (disp) 25 gauge 25 gauge x #50 ea 04/12/25 Rx 1" (Exel Hypodermic [place]) baclofen 20 mg tablet 20 mg PO TID 90 days #90 tabs 04/14/25 Rx Allergies Allergy/AdvReac Type Severity Reaction Status Date / Time iron dextran complex Allergy Severe HIVES Verified 03/28/25 07:58 cyclobenzaprine Allergy Intermediate N/V Verified 03/28/25 07:58 lactose AdvReac Mild Gastrointestinal Verified 03/28/25 07:58 Upset Past Med/Surg History Problem List (Updated 04/18/25 @ 13:19 by David Guidry MD) Acute left lumbar radiculopathy (Acute) Sepsis (Acute) Hypopituitarism (Acute) Vitamin D deficiency Secondary adrenal insufficiency Diabetes type 2, uncontrolled Hypogonadism male Panhypopituitarism Leg wound, left (Acute) Cellulitis (Acute) Opiate dependence, continuous Chronic anticoagulation On Eliquis for PE. 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 Osteoporosis Vitamin B12 deficiency Vitamin D deficiency Depression Vitamin B12 deficiency Coarse tremors Panhypopituitarism History of hypophysectomy [place]'s disease (Chronic) ACTH deficiency Acquired central hypothyroidism Hyperparathyroidism due to vitamin D deficiency Diabetes mellitus type 2 in obese HTN (hypertension), benign Hyperlipidemia Chronic pain disorder Lumbar myelopathy Lumbar spinal stenosis (Acute) Generalized polyneuropathy Constipation due to opioid therapy Complex sleep apnea syndrome Nocturnal hypoxemia Osteoporosis Urinary incontinence GERD (gastroesophageal reflux disease) Impaired functional mobility and activity tolerance Lymphedema Restless leg syndrome Chronic venous insufficiency of lower extremity Medical History Acute respiratory failure with hypoxia Acute bronchitis Chest pain Pleuritic chest pain Adrenal insufficiency Central hypogonadism Pulmonary embolism Diabetic ulcer of toe of right foot Chronic osteomyelitis of spine History of recurrent deep vein thrombosis IVC filter Fusion of spine, thoracolumbar region T5-S1 Nocturnal enuresis Micronutrients deficiency Deep vein thrombosis LT. ankle and RT upper arm>only taking aspirin currently History of anesthesia problem "remembers being aware and hearing talking and conversations during his spinal surgery at [facility]" Hyperlipidemia Hypertension History of COVID-19 05/2021, home test, not hosp; headache, weakness, fatigue, no appetite, fever, diarrhea>resolved. Sleep apnea hx cpap>bipap>now not using anything; new study scheduled w/dr dean in 06/2022 Osteomyelitis Spinal stenosis Osteoporosis Status post gamma knife treatment pituitary gland Back pain chronic Pituitary tumor hx Surgical History Hx of tonsillectomy Hx of colonoscopy History of lumbar fusion T5-S1 History of cholecystectomy Family History Sister Breast cancer Multiple sclerosis Father Colorectal cancer Myocardial infarction Brother Myocardial infarction Prostate cancer Pancreatitis Denies family history of Ovarian cancer Social History Smoking Status: Never smoker Tobacco Type: Declines Second Hand Exposure: Yes (as a child-father smoked); Do You Dip or Chew Tobacco: No; Hx Alcohol Use: No Hx Substance Use: No Preferred Language: Amharic Communication Ability: Effective Visual Impairment: Limited Hearing Ability: Normal 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 Beliefs That Will Affect Care: None marital status: Current Living Situation: Spouse Current Living Situation Comment: home with current occupational status: other current occupation: Disabled How many Children do You have: 1 Feels Safe at Home: Yes Childhood Exposure to Second-Hand Smoke: Yes Diet: regular caffeine: Yes during the past year weight has: remained stable Dental Care, Regularly: No Physical Activity Frequency: Does not Exercise Seatbelt Use: always Sunscreen Use: Yes Assistive Devices: Glasses and Walker Review of Systems Review of systems negative outside of positive findings mentioned in HPI. Physical Exam Vital Signs Vital Signs - 24 hr 04/18/25 09:15 04/18/25 09:15 04/18/25 09:16 Temperature 36.4 C L Temperature Source Oral Pulse Rate 81 84 89 Pulse Rate from SpO2 Sensor Respiratory Rate 17 14 Respiratory Effort / Characteristics Non-Labored Respiratory Depth Normal Respiratory Pattern Regular Blood Pressure 143/80 H 143/80 H Blood Pressure Mean 101 101 Blood Pressure Position Sitting Pulse Oximetry 97 Oxygen Delivery Method Room Air Sepsis Recent Fever Within 48 Hours No Sepsis New/Unexplained Change in Mental Status N/A Sepsis Action Taken by Nursing No Action Required 04/18/25 09:25 04/18/25 10:00 04/18/25 10:23 Temperature Temperature Source Pulse Rate 80 Pulse Rate from SpO2 Sensor Respiratory Rate 19 Respiratory Effort / Characteristics Respiratory Depth Respiratory Pattern Blood Pressure 141/69 H 143/86 H Blood Pressure Mean 93 105 Blood Pressure Position Pulse Oximetry Oxygen Delivery Method Room Air Sepsis Recent Fever Within 48 Hours Sepsis New/Unexplained Change in Mental Status Sepsis Action Taken by Nursing 04/18/25 10:30 04/18/25 11:00 04/18/25 11:12 Temperature Temperature Source Pulse Rate 86 85 90 Pulse Rate from SpO2 Sensor 89 Respiratory Rate 16 18 18 Respiratory Effort / Characteristics Respiratory Depth Respiratory Pattern Blood Pressure 150/89 H 144/94 H 130/91 Blood Pressure Mean 109 110 104 Blood Pressure Position Pulse Oximetry 91 Oxygen Delivery Method Sepsis Recent Fever Within 48 Hours Sepsis New/Unexplained Change in Mental Status Sepsis Action Taken by Nursing 04/18/25 11:21 04/18/25 11:30 04/18/25 11:45 Temperature Temperature Source Pulse Rate 86 84 84 Pulse Rate from SpO2 Sensor 86 84 83 Respiratory Rate 20 14 22 Respiratory Effort / Characteristics Respiratory Depth Respiratory Pattern Blood Pressure 139/97 122/84 Blood Pressure Mean 111 96 Blood Pressure Position Pulse Oximetry 90 91 92 Oxygen Delivery Method Sepsis Recent Fever Within 48 Hours Sepsis New/Unexplained Change in Mental Status Sepsis Action Taken by Nursing 04/18/25 12:00 04/18/25 12:15 04/18/25 12:30 Temperature Temperature Source Pulse Rate 80 80 85 Pulse Rate from SpO2 Sensor 79 81 84 Respiratory Rate 21 11 L 12 Respiratory Effort / Characteristics Respiratory Depth Respiratory Pattern Blood Pressure 124/78 136/81 127/85 Blood Pressure Mean 93 99 99 Blood Pressure Position Pulse Oximetry 90 89 L 91 Oxygen Delivery Method Sepsis Recent Fever Within 48 Hours Sepsis New/Unexplained Change in Mental Status Sepsis Action Taken by Nursing 04/18/25 12:45 04/18/25 13:03 04/18/25 13:03 Temperature Temperature Source Pulse Rate 85 Pulse Rate from SpO2 Sensor 84 Respiratory Rate 15 Respiratory Effort / Characteristics Respiratory Depth Respiratory Pattern Blood Pressure 113/86 147/74 H 147/74 H Blood Pressure Mean 95 97 97 Blood Pressure Position Pulse Oximetry 91 Oxygen Delivery Method Sepsis Recent Fever Within 48 Hours Sepsis New/Unexplained Change in Mental Status Sepsis Action Taken by Nursing 04/18/25 13:03 Temperature Temperature Source Pulse Rate 86 Pulse Rate from SpO2 Sensor 88 Respiratory Rate 23 Respiratory Effort / Characteristics Respiratory Depth Respiratory Pattern Blood Pressure Blood Pressure Mean Blood Pressure Position Pulse Oximetry 94 Oxygen Delivery Method Sepsis Recent Fever Within 48 Hours Sepsis New/Unexplained Change in Mental Status Sepsis Action Taken by Nursing See below Constitutional WD/WN, vitals as above Eyes PERRL, conjunctivae normal, anicteric sclerae ENMT external ear and nose normal, oropharynx normal Neck trachea midline, no thyromegaly Respiratory normal respiratory effort, lungs clear to auscultation Cardiovascular RRR, no murmur, no edema Gastrointestinal (Abdomen) normal bowel sounds, soft, nontender, no hepatosplenomegaly Musculoskeletal Lumbar exam: L1: No sensation deficit in the groin and iliac crest L2: Hip flexion and adduction intact L3: Knee extension intact b/l L4: Dorsiflexion intact b/l L5: Toe dorsiflexion intact b/l S1: Foot plantar flexion intact b/l S2: Toe plantar flexion intact Skin no rashes, warm and dry Course Administered Medications Discontinued Medications Diazepam (Diazepam 5 Mg Tablet) 10 mg PO NOW ONE Stop: 04/18/25 12:32 Last Admin: 04/18/25 13:03 Dose: 10 mg Documented By: rosette Hydrocortisone Sodium Succinate (Hydrocortisone Sod Succinate 100 Mg/2 Ml Vial) 50 mg IV NOW STA Stop: 04/18/25 10:17 Last Admin: 04/18/25 10:41 Dose: 50 mg Documented By: rosette Cefepime HCl (Maxipime 2000mg) 2,000 mg in 20 mls @ 5 mls/min IV NOW STA; Protocol Stop: 04/18/25 10:19 Last Admin: 04/18/25 10:45 Dose: 5 mls/min Documented By: rosette Methocarbamol (Methocarbamol 500 Mg Tablet) 1,000 mg PO ONCE ONE Stop: 04/18/25 12:16 Last Admin: 04/18/25 12:46 Dose: Not Given Documented By: anupu Morphine Sulfate (Morphine Sulfate 4 Mg/Ml 1 Ml Carp\\Vial) 4 mg IV NOW STA Stop: 04/18/25 10:17 Last Admin: 04/18/25 10:42 Dose: 4 mg Documented By: anupu Ondansetron HCl (Ondansetron Inj 2 Mg/Ml 2 Ml Vial) 4 mg IV NOW STA Stop: 04/18/25 10:17 Last Admin: 04/18/25 10:42 Dose: 4 mg Documented By: rosette Medical Decision Making Differential Diagnosis DDx includes but not limited to: Adrenal crisis, sepsis, metabolic abnormality, ACS, lumbar radiculopathy Home Medications Current Medication List: was personally reviewed by me Laboratory Data Attestation: I reviewed the patient's lab results. 04/18/25 09:45 04/18/25 09:45 Lab Results 04/18/25 04/18/25 04/18/25 Range/Units 09:45 09:52 09:53 WBC 12.72 H (4.8-10.8) K/ul RBC 6.99 H (4.70-6.10) M/uL Hgb 15.7 (14.0-18.0) g/dL Hct 51.7 (42.0-52.0) % MCV 74.0 L (80.0-100.0) fL MCH 22.5 L (25.0-34.0) pg MCHC 30.4 L (32.0-36.0) g/dL RDW Std Deviation 56.3 H (36.4-46.3) fL RDW Coeff of Tristan 22.8 H (11.5-14.5) % Plt Count 163 (130-400) K/uL Immature Gran % (Auto) 1.6 % Neut % (Auto) 82.3 % Lymph % (Auto) 10.6 % [place] % (Auto) 3.9 % Eos % (Auto) 1.3 % Baso % (Auto) 0.3 % Neut # (Auto) 10.47 H (1.40-6.50) K/uL Lymph # (Auto) 1.35 (1.20-3.40) K/uL [place] # (Auto) 0.50 (0.11-0.59) K/uL Eos # (Auto) 0.16 (0.00-0.50) K/uL Baso # (Auto) 0.04 (0.00-0.20) K/uL Immature Gran # (Auto) 0.20 (0.01-0.20) K/uL Toxic Vacuolation 1+ Polychromasia 1+ Anisocytosis Present Tear Drop Cells 1+ PT 12.0 (9.0-12.0) Seconds INR 1.1 (0.9-1.1) Sodium 133 L (136-145) mmol/L Potassium 3.8 (3.5-5.1) mmol/L Chloride 102 (98-107) mmol/L Carbon Dioxide 20 L (21-32) mmol/L Anion Gap 11 (3-11) BUN 8 (6-23) mg/dl Creatinine 0.66 (0.6-1.4) mg/dl Est Cr Clr Drug Dosing 57.4 ml/min eGFR 104.09 BUN/Creatinine Ratio 12.1 (10-20) Glucose 190 H (70-99(Fasting)) mg/dl Lactate 3.7 H* (0.4-2.0) mmol/L Calcium 9.3 (8.6-10.3) mg/dl Magnesium 1.5 L (1.7-2.4) mg/dl Total Bilirubin 1.0 (0.2-1.0) mg/dl AST 37 (13-39) U/L ALT 20 (7-52) U/L Alkaline Phosphatase 68 (34-104) U/L Troponin I High Sens 4.1 (0-20) pg/ml Total Protein 7.1 (6.0-8.3) gm/dl Albumin 3.6 (3.4-5.0) gm/dl Globulin 3.5 (2.5-4.0) gm/dl Albumin/Globulin Ratio 1.0 (0.9-2) Procalcitonin 0.07 (0-0.5) ng/ml TSH 0.023 L (0.300-4.500) uIu/ml Free T4 Cancelled Adenovirus (PCR) (NotDetected) B. pertussis DNA (PCR) (NotDetected) B.parapertussis DNA PCR (NotDetected) C. pneumoniae DNA (PCR) (NotDetected) Coronavirus OC43 (PCR) (NotDetected) Coronavirus HKU1 (PCR) (NotDetected) Coronavirus 229E (PCR) (NotDetected) SARS-CoV-2 (PCR) (NotDetected) Coronavirus NL63 (PCR) (NotDetected) Human Metapneumovir PCR (NotDetected) Influenza Type A (PCR) (NotDetected) Influenza Type B (PCR) (NotDetected) M. pneumoniae (PCR) (NotDetected) Parainfluenza 1 (PCR) (NotDetected) Parainfluenza 2 (PCR) (NotDetected) Parainfluenza 3 (PCR) (NotDetected) Parainfluenza 4 (PCR) (NotDetected) RSV (PCR) (NotDetected) Entero/Rhino (PCR) (NotDetected) 04/18/25 04/18/25 Range/Units 11:39 Unknown WBC (4.8-10.8) K/ul RBC (4.70-6.10) M/uL Hgb (14.0-18.0) g/dL Hct (42.0-52.0) % MCV (80.0-100.0) fL MCH (25.0-34.0) pg MCHC (32.0-36.0) g/dL RDW Std Deviation (36.4-46.3) fL RDW Coeff of Tristan (11.5-14.5) % Plt Count (130-400) K/uL Immature Gran % (Auto) % Neut % (Auto) % Lymph % (Auto) % [place] % (Auto) % Eos % (Auto) % Baso % (Auto) % Neut # (Auto) (1.40-6.50) K/uL Lymph # (Auto) (1.20-3.40) K/uL [place] # (Auto) (0.11-0.59) K/uL Eos # (Auto) (0.00-0.50) K/uL Baso # (Auto) (0.00-0.20) K/uL Immature Gran # (Auto) (0.01-0.20) K/uL Toxic Vacuolation Polychromasia Anisocytosis Tear Drop Cells PT (9.0-12.0) Seconds INR (0.9-1.1) Sodium (136-145) mmol/L Potassium (3.5-5.1) mmol/L Chloride (98-107) mmol/L Carbon Dioxide (21-32) mmol/L Anion Gap (3-11) BUN (6-23) mg/dl Creatinine (0.6-1.4) mg/dl Est Cr Clr Drug Dosing ml/min eGFR BUN/Creatinine Ratio (10-20) Glucose (70-99(Fasting)) mg/dl Lactate 2.0 (0.4-2.0) mmol/L Calcium (8.6-10.3) mg/dl Magnesium (1.7-2.4) mg/dl Total Bilirubin (0.2-1.0) mg/dl AST (13-39) U/L ALT (7-52) U/L Alkaline Phosphatase (34-104) U/L Troponin I High Sens (0-20) pg/ml Total Protein (6.0-8.3) gm/dl Albumin (3.4-5.0) gm/dl Globulin (2.5-4.0) gm/dl Albumin/Globulin Ratio (0.9-2) Procalcitonin (0-0.5) ng/ml TSH (0.300-4.500) uIu/ml Free T4 Adenovirus (PCR) Not Detected (NotDetected) B. pertussis DNA (PCR) Not Detected (NotDetected) B.parapertussis DNA PCR Not Detected (NotDetected) C. pneumoniae DNA (PCR) Not Detected (NotDetected) Coronavirus OC43 (PCR) Not Detected (NotDetected) Coronavirus HKU1 (PCR) Not Detected (NotDetected) Coronavirus 229E (PCR) Not Detected (NotDetected) SARS-CoV-2 (PCR) Not Detected (NotDetected) Coronavirus NL63 (PCR) Not Detected (NotDetected) Human Metapneumovir PCR Not Detected (NotDetected) Influenza Type A (PCR) Not Detected (NotDetected) Influenza Type B (PCR) Not Detected (NotDetected) M. pneumoniae (PCR) Not Detected (NotDetected) Parainfluenza 1 (PCR) Not Detected (NotDetected) Parainfluenza 2 (PCR) Not Detected (NotDetected) Parainfluenza 3 (PCR) Not Detected (NotDetected) Parainfluenza 4 (PCR) Not Detected (NotDetected) RSV (PCR) Not Detected (NotDetected) Entero/Rhino (PCR) Not Detected (NotDetected) Imaging Data Attestation: I personally reviewed and interpreted this imaging study as follows: My Impression: No acute cardiopulmonary process noted. Radiologist's Impression: Chest X-Ray 04/18/25 09:42 XR chest 1V portable CLINICAL HISTORY: weakness COMPARISON STUDY: 01/06/2025 FINDINGS: Thoracic metallic fusion again seen. Heart size and pulmonary vasculature are normal. Inspiration is shallow. No consolidation or pleural effusion seen. No pneumothorax. IMPRESSION: No acute findings. ACT 112: Negative or not required by law. Electronically signed by: Jake Martinez M.D. 04/18/2025 10:05 AM Blood Pressure Blood Pressure Findings: Elevated blood pressure Blood Pressure Disposition: elevated BP felt to be situational MDM Narrative Patient is a 64-year-old male with history of hypopituitary is him who presents with nausea, weakness, hot and cold flashes. On arrival here in the emergency room he was transferred over from the [facility] and exacerbated his lower back pain. He is afebrile here in the ED. Blood pressure stable. Lab work was ordered and reviewed. Leukocytosis with elevated lactate noted. Sepsis workup initiated. No indication for 30 mL/kg of IV fluids due to stable blood pressure and absence of septic shock. Broad-spectrum antibiotics were given. Blood cultures were sent. No obvious signs of infection on chest x-ray or [employer]. Patient was given a stress dose of hydrocortisone here today in the setting with history of hypopituitarism. Low TSH within his normal for his chronic hypothyroidism. I did speak with endocrinology who recommends several days of stress dose steroids while patient is admitted for sepsis rule out. They will provide a short consult note and be available as needed. Patient was given IV pain medication and muscle relaxer for his acute on chronic back pain. No concerning findings on high-sensitivity neuroexam or concern for acute spinal injury requiring imaging at this time. Stable for admission to hospitalist service. Impression & Plan Hypopituitarism, Sepsis, Acute left lumbar radiculopathy Discharge Plan Visit Data Chief Complaint: Weakness Stated Complaint: WEAKNESS, NAUSEA ED Provider: David Guidry Discharge Problem: Hypopituitarism, Sepsis, Acute left lumbar radiculopathy Patient Disposition: Admitted As Inpatient Condition: Good Forms Stand Alone Forms: My [facility] Prescriptions Prescriptions: No Action levothyroxine 200 mcg tablet 200 mcg PO DAILYBB Qty: 90 1RF Rx Instructions: total dose 250 mirtazapine 7.5 mg tablet 7.5 mg PO HS Qty: 60 1RF oxycodone 5 mg tablet 10 mg PO TID PRN (Reason: pain) Qty: 42 0RF liothyronine 5 mcg tablet 5 mcg PO QPM Qty: 60 0RF pregabalin 150 mg capsule 150 mg PO QID Qty: 120 0RF spironolactone [Aldactone] 25 mg tablet 25 mg PO BID Qty: 60 5RF hydrocortisone 5 mg tablet 10 mg PO TID Qty: 540 1RF sertraline 100 mg tablet 100 mg PO TID Qty: 270 3RF Eliquis 5 mg tablet 5 mg PO BID 90 Days Qty: 60 0RF (DME) Exel Hypodermic [place] 25 gauge x 1" needle See Rx Instructions .Route Qty: 50 1RF Rx Instructions: use to inject testosterone baclofen 20 mg tablet 20 mg PO TID 90 Days Qty: 90 0RF lansoprazole 30 mg capsule,delayed release(DR/EC) 30 mg PO QAM prednisone 1 mg tablet 1 mg PO TID Qty: 90 3RF atorvastatin 20 mg tablet 20 mg PO HS Qty: 90 3RF semaglutide 2 mg/dose (8 mg/3 mL) pen injector 2 mg subcut Q7D Qty: 3 5RF Rx Instructions: Thursday sulfamethoxazole-trimethoprim [Bactrim] 400-80 mg tablet 1 tab PO DAILY Qty: 60 0RF testosterone cypionate 200 mg/mL syringe 120 mg subcut .Q10 days Qty: 9 3RF Rx Instructions: Inject 120mg every 10 days metformin 500 mg tablet extended release 24 hr 1,000 mg PO BID Qty: 240 2RF cholecalciferol (vitamin D3) 1,250 mcg (50,000 unit) capsule 1,250 mcg PO .weekly Qty: 14 1RF buprenorphine HCl [Belbuca] 75 mcg film 150 mcg buccal Q12H acetaminophen 325 mg Tablet 650 mg PO Q4H PRN (Reason: fever or pain) Qty: 180 0RF (DME) blood-glucose meter [OneTouch Ultra2 Meter] Misc See Rx Instructions .Route Qty: 1 0RF Rx Instructions: As directed polyethylene glycol 3350 [Miralax] 17 gram powder in packet 17 g PO BID PRN (Reason: Constipation) 30 Days Qty: 60 0RF (DME) OneTouch Ultra Test Strip See Rx Instructions .Route Qty: 100 0RF Rx Instructions: As directed aspirin 81 mg Tablet,Delayed Release (Dr/Ec) 81 mg PO HS Qty: 30 0RF levothyroxine 50 mcg tablet 50 mcg PO DAILYBB Qty: 30 0RF (DME) BD Integra Syringe 3 mL 25 gauge x 1" syringe See Rx Instructions .Route Qty: 100 0RF Rx Instructions: inject teterone every 7 days (DME) lancets [OneTouch UltraSoft 2 Lancet] 30 gauge misc See Rx Instructions .Route Qty: 100 0RF Rx Instructions: As directed (DME) [place] [facility] [place] Instructions .Route Qty: 1 0RF Rx Instructions: As directed with seat mecobalamin (vitamin B12) 1,000 mcg tablet,chewable 5,000 mcg PO QPM Qty: 30 0RF insulin glargine [Lantus U-100 Insulin] 100 unit/mL solution 8 unit SC HS Hold Instructions: discuss on F?U ferrous gluconate 324 mg (37.5 mg iron) tablet 324 mg PO Q OTHER DAY Referrals Referrals: David Jacob, [Primary Care Provider] -
[2025-04-18] MEDS ORDERED: METHOCARBAMOL 750 MG TABLET PO ONE (11:14)
[2025-04-18 12:07] LABS: Chlamydia pneumoniae PCR Not Detected (NotDetected); Coronavirus 229E PCR Not Detected (NotDetected); Coronavirus CoV-2 (COVID19)PCR Not Detected (NotDetected); Coronavirus HKU1 PCR Not Detected (NotDetected); Coronavirus NL63 PCR Not Detected (NotDetected); Coronavirus OC43PCR Not Detected (NotDetected); Human Metapneumovirus PCR Not Detected (NotDetected); Parainfluenza Virus 1 PCR Not Detected (NotDetected); Parainfluenza Virus 2 PCR Not Detected (NotDetected); Parainfluenza Virus 3 PCR Not Detected (NotDetected); Parainfluenza Virus 4 PCR Not Detected (NotDetected); Respiratory Syncytial VirusPCR Not Detected (NotDetected); Rhinovirus/Enterovirus PCR Not Detected (NotDetected)
[2025-04-18] MEDS: METHOCARBAMOL 500 MG TABLET PO ONE (12:46)
--- NOTE | 2025-04-18 12:51 | History & Physical Report ---
Date of Service April 18, 2025 Assessment & Plan (1) Sepsis: (2) Sacral wound: (3) Secondary adrenal insufficiency: (4) Panhypopituitarism: Plan This patient is a 64-year-old male with a history of panhypopituitarism, HTN, HLD, morbid obesity, TESS not on CPAP, vitamin D deficiency, chronic lower back pain with multiple surgeries, GERD, DM2, depression/anxiety, Hx of DVT in and PE in 2023 on Eliquis, lymphedema s/p lumbar spine surgeries, immobility, chronic venous stasis, iron deficiency anemia, urinary incontinence, osteoporosis, vitamin B12 deficiency, polyneuropathy, and RLS who presents to the ED with nausea, weakness, fatigue, hot flashes after having some nasal congestion. He took an extra dose of hydrocortisone 15 mg prior to coming. He feels he has the symptoms when he is having an adrenal crisis while getting sick from something. He has noticed some bloody drainage from an open wound on his buttocks. He had some acute on chronic exacerbation of his lower back pain with spasms down the leg after being rolled onto the stretcher in the ED. His vital signs were normal, he was afebrile, and had leukocytosis and an elevated lactate at 3.7. A respiratory BioFire was negative, CXR negative, UA had not yet been collected. There was concern for adrenal insufficiency and possible early sepsis without a source. He was given a dose of IV cefepime and IV hydrocortisone. He will be admitted for adrenal insufficiency and monitoring for infection, likely infected sacral wound. #Sepsis-could be from infected sacral wound. UA still pending at time of admission but no urinary symptoms. -continue broad spectrum abx with IV Zosyn and Vanco -check wound cx from sacrum -giving stress dose steroids -follow BCxs -wound care consult, offload pressure from wound -follow CBC, BMP in AM #Acute on chronic lower back pain with spasms-from being rolled on to [facility] in ED. Received IV morphine, valium, robaxin. On chronic Bactrim prophylaxis for h/o spine infecttions -continue home buprenorphine SL tid, continue Lyrica -continue baclofen, oxycodone prn -hold home Bactrim while o IV antibiotics that cover for Staph #Panhypopituitarism-follows with Endocrine-appreciate their consult. Pt recently weaned po HC to 5mg po tid from 10mg po tid -give IV HC 25mg IV q8 then taper down to po HC as per Endocrine note -continue LT4 and Cytomel--> TSH expected to be low from central hypothyroidism and FT4 normal -takes testosterone IM at home -continue prednisone 1mg po tid and giving IV hydrocortisone stress dose steroids, then taper back to po HC #Hypomagnesemia-replace with IV mag #HTN/HLD-BPs normal -continue ASA, statin, spironolactone #TESS not on CPAP-may need nocturnal O2 #GERD-continue PPI #DM2- last HgbA1C 9.2%, not well controlled. On chronic steroids, follows with Endo -hold home semaglutide, metformin -give Novolog SSI -ADA diet, BSGs -check A1C in AM #Depression/anxiety-continue Remeron, sertraline #Hx of DVT in and PE in 2023 on Eliquis -continue Eliquis #iron deficiency anemia-microcytic anemia, hemoconcentrated currently -check iron studies in AM -follow CBC #vitamin B12 deficiency/polyneuropathy/RLS-no acute issues -continue po Vit B12 DVT Proph-Eliquis Dispo-admit to PCU. Is very immobile at home. Consult PT/OT History of Present Illness Chief Complaint: Weakness, nausea, fatigue Primary Care Provider: David Jacob, This patient is a 64-year-old male with a history of panhypopituitarism, HTN, HLD, morbid obesity, TESS not on CPAP, vitamin D deficiency, chronic lower back pain with multiple surgeries, GERD, DM2, depression/anxiety, Hx of DVT in and PE in 2023 on Eliquis, lymphedema s/p lumbar spine surgeries, immobility, chronic venous stasis, iron deficiency anemia, urinary incontinence, osteoporosis, vitamin B12 deficiency, polyneuropathy, and RLS who presents to the ED with nausea, weakness, fatigue, hot flashes after having some nasal congestion. He took an extra dose of hydrocortisone 15 mg prior to coming. He feels he has the symptoms when he is having an adrenal crisis while getting sick from something. He has noticed some bloody drainage from an open wound on his buttocks. He had some acute on chronic exacerbation of his lower back pain with spasms down the leg after being rolled onto the stretcher in the ED. His vital signs were normal, he was afebrile, and had leukocytosis and an elevated lactate at 3.7. A respiratory BioFire was negative, CXR negative, UA had not yet been collected. There was concern for adrenal insufficiency and possible early sepsis without a source. He was given a dose of IV cefepime and IV hydrocortisone. He will be admitted for adrenal insufficiency and monitoring for infection, likely infected sacral wound. Allergies Allergy/AdvReac Type Severity Reaction Status Date / Time iron dextran complex Allergy Severe HIVES Verified 03/28/25 07:58 cyclobenzaprine Allergy Intermediate N/V Verified 03/28/25 07:58 lactose AdvReac Mild Gastrointestinal Verified 03/28/25 07:58 Upset Home Medications Medication Instructions Recorded Confirmed Type levothyroxine 200 mcg tablet 200 mcg PO DAILYBB #90 tabs 09/12/24 04/18/25 Rx Wheeled Walker #1 ea 12/01/24 03/23/25 Rx acetaminophen 325 mg tablet 650 mg (2 x 325 mg) PO Q4H PRN 12/01/24 04/18/25 Rx fever or pain #180 tabs aspirin 81 mg tablet,delayed 81 mg PO HS #30 tabs 12/01/24 04/18/25 Rx release blood sugar diagnostic (OneTouch #100 ea 12/01/24 03/23/25 Rx Ultra Test strips) blood-glucose meter (OneTouch #1 ea 12/01/24 03/23/25 Rx Ultra2 Meter) lancets 30 gauge (OneTouch #100 ea 12/01/24 03/23/25 Rx UltraSoft 2 Lancet) levothyroxine 50 mcg tablet 50 mcg PO DAILYBB #30 tabs 12/01/24 04/18/25 Rx mecobalamin (vitamin B12) 1,000 5,000 mcg (5 x 1,000 mcg) PO QPM 12/01/2404/01 Rx mcg chewable tablet #30 tabs polyethylene glycol 3350 17 gram 17 g PO BID PRN Constipation 30 12/01/24 04/18/25 Rx oral powder packet (Miralax) days #60 ea syringe with needle, safety 3 mL #100 ea 12/01/24 03/23/25 Rx 25 gauge x 1" (BD Integra Syringe) atorvastatin 20 mg tablet 20 mg PO HS #90 tabs 01/02/25 04/18/25 Rx lansoprazole 30 mg capsule,delayed 30 mg PO QAM 01/02/25 04/18/25 History release prednisone 1 mg tablet 1 mg PO TID #90 tabs 01/02/25 04/18/25 Rx ferrous gluconate 324 mg (37.5 mg 324 mg PO Q OTHER DAY 01/06/25 04/18/25 History iron) tablet sulfamethoxazole 400 1 tab PO DAILY #60 tabs 01/20/25 04/18/25 Rx mg-trimethoprim 80 mg tablet (Bactrim) mirtazapine 7.5 mg tablet 7.5 mg PO HS #60 tabs 01/23/25 04/18/25 Rx oxycodone 5 mg tablet 10 mg (2 x 5 mg) PO TID PRN pain 01/23/25 04/18/25 Rx #42 tabs semaglutide 2 mg/dose (8 mg/3 mL) 2 mg (0.75 mL) subcut Q7D #3 mL 02/15/25 04/18/25 Rx subcutaneous pen injector liothyronine 5 mcg tablet 5 mcg PO QPM #60 tabs 03/14/25 04/18/25 Rx pregabalin 150 mg capsule 150 mg PO QID #120 caps 03/14/25 04/18/25 Rx spironolactone 25 mg tablet 25 mg PO BID #60 tabs 03/14/25 04/18/25 Rx (Aldactone) hydrocortisone 5 mg tablet 10 mg (2 x 5 mg) PO TID #540 tabs 03/21/25 04/18/25 Rx buprenorphine HCl 75 mcg buccal 150 mcg buccal Q12H 03/28/25 04/18/25 History film (Belbuca) metformin 500 mg tablet,extended 1,000 mg (2 x 500 mg) PO BID #240 03/28/25 04/18/25 Rx release 24 hr tabs sertraline 100 mg tablet 100 mg PO TID #270 tabs 04/06/25 04/18/25 Rx apixaban 5 mg tablet (Eliquis) 5 mg PO BID 90 days #60 tabs 04/11/25 04/18/25 Rx needle (disp) 25 gauge 25 gauge x #50 ea 04/12/25 Rx 1" ([employer]itt) baclofen 20 mg tablet 20 mg PO TID 90 days #90 tabs 04/14/25 04/18/25 Rx cholecalciferol (vitamin D3) 1,250 1,250 mcg PO WK 04/18/25 04/18/25 History mcg (50,000 unit) capsule testosterone cypionate 200 mg/mL 120 mg subcut DIRECTED 04/18/25 04/18/25 History intramuscular syringe Past Med/Surg History Problem List (Updated 04/18/25 @ 23:37 by Gia Campa MD) Sacral wound Acute left lumbar radiculopathy (Acute) Sepsis (Acute) Hypopituitarism (Acute) Vitamin D deficiency Secondary adrenal insufficiency Diabetes type 2, uncontrolled Hypogonadism male Panhypopituitarism Leg wound, left (Acute) Cellulitis (Acute) Opiate dependence, continuous Chronic anticoagulation On Eliquis for PE. 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 Acquired central hypothyroidism Hyperparathyroidism due to vitamin D deficiency Diabetes mellitus type 2 in obese HTN (hypertension), benign Hyperlipidemia Chronic pain disorder Lumbar myelopathy Lumbar spinal stenosis (Acute) Generalized polyneuropathy Constipation due to opioid therapy Complex sleep apnea syndrome Nocturnal hypoxemia Osteoporosis Urinary incontinence GERD (gastroesophageal reflux disease) Impaired functional mobility and activity tolerance Lymphedema Restless leg syndrome Chronic venous insufficiency of lower extremity Medical History Acute respiratory failure with hypoxia Acute bronchitis Chest pain Pleuritic chest pain Adrenal insufficiency Central hypogonadism Pulmonary embolism Diabetic ulcer of toe of right foot Chronic osteomyelitis of spine History of recurrent deep vein thrombosis IVC filter Fusion of spine, thoracolumbar region T5-S1 Nocturnal enuresis Micronutrients deficiency Deep vein thrombosis LT. ankle and RT upper arm>only taking aspirin currently History of anesthesia problem "remembers being aware and hearing talking and conversations during his spinal surgery at [facility]" Hyperlipidemia Hypertension History of COVID-19 05/2021, home test, not hosp; headache, weakness, fatigue, no appetite, fever, diarrhea>resolved. Sleep apnea hx cpap>bipap>now not using anything; new study scheduled w/dr dean in 06/2022 Osteomyelitis Spinal stenosis Osteoporosis Status post gamma knife treatment pituitary gland Back pain chronic Pituitary tumor hx Surgical History Hx of tonsillectomy Hx of colonoscopy History of lumbar fusion T5-S1 History of cholecystectomy Family History Sister Breast cancer Multiple sclerosis Father Colorectal cancer Myocardial infarction Brother Myocardial infarction Prostate cancer Pancreatitis Denies family history of Ovarian cancer Social History Smoking Status: Never smoker Tobacco Type: Declines Second Hand Exposure: Yes (as a child-father smoked); Do You Dip or Chew Tobacco: No; Hx Alcohol Use: No Hx Substance Use: No Preferred Language: [place] Communication Ability: Effective Visual Impairment: Limited Hearing Ability: Normal Loader Operator Required: No Beliefs That Will Affect Care: None marital status: Current Living Situation: Spouse Current Living Situation Comment: home with current occupational status: other current occupation: Disabled How many Children do You have: 1 Other Information That Helps Us Care for You: No Feels Safe at Home: Yes Childhood Exposure to Second-Hand Smoke: Yes Diet: regular caffeine: Yes during the past year weight has: remained stable Dental Care, Regularly: No Physical Activity Frequency: Does not Exercise Seatbelt Use: always Sunscreen Use: Yes Assistive Devices: Glasses and Walker Review of Systems Review of Systems: All systems reviewed & are unremarkable except as noted in HPI & below Physical Exam Constitutional: WD/WN, vitals as above Eyes: PERRL, conjunctivae normal, anicteric sclerae ENMT: external ear and nose normal, oropharynx normal Neck: trachea midline, no thyromegaly Respiratory: normal respiratory effort, lungs clear to auscultation Cardiovascular: Rate/Rhythm: regular rate and regular rhythm Heart Sounds: no murmur Extremities: + edema (1+ pitting edema legs bilat) Chest (Breasts): Chest: normal inspection of chest Gastrointestinal (Abdomen): normal bowel sounds, soft, nontender, no hepatosplenomegaly Musculoskeletal: Extremities: extremities normal to inspection; no cyanosis and no clubbing Skin: + ulcer (right sacral region with open w ound, draining fluid and blood,erythema) and + nail abnormality (multiple toenails with thickened, yellow nails) Neurologic: moves all extremities and awake; no focal motor deficits Psychiatric: A+Ox3, euthymic affect Results & Data Results & Data Vital Signs (Past 12 Hours) Vital Signs Temp Pulse Resp BP Pulse Ox O2 Del Method 04/18/25 11:21 86 20 90 04/18/25 11:12 90 18 130/91 91 04/18/25 11:00 85 18 144/94 H 04/18/25 10:30 86 16 150/89 H 04/18/25 10:23 143/86 H 04/18/25 10:00 80 19 141/69 H 04/18/25 09:25 Room Air 04/18/25 09:16 36.4 C L 89 14 143/80 H 97 Room Air 04/18/25 09:15 84 17 143/80 H 04/18/25 09:15 81 Laboratory Results CBC, CMP, PT/INR, procal reviewed Code Status & VTE Plan Code Status Full code VTE Prophylaxis Plan VTE Prophylaxis will be ordered: Yes PG Care Time/CCT Total # of Minutes Spent Total Time Spent with Patient: Total time spent is greater than 50% in coordination of care (as documented) at patient's floor/unit and/or counseling patient: Coding Level of Care Code 87777 INT INP/OBS CARE 3/75MIN Diagnoses Sepsis A41.9 Sacral wound S31.000A Secondary adrenal insufficiency E27.49 Panhypopituitarism E23.0
[2025-04-18] MEDS ORDERED: CARBOHYDRATES FOR HYPOGLYCEMIA PO PRN (15:42)
[2025-04-18] MEDS ORDERED: ACETAMINOPHEN 325 MG TAB PO PRN (15:42)
[2025-04-18] MEDS ORDERED: HYDROCORTISONE SOD SUCCINATE 100 MG/2 ML VIAL IV SCH (15:42)
[2025-04-18] MEDS ORDERED: GLUCOSE 10 TAB/TUBE PO PRN (15:42)
[2025-04-18] MEDS ORDERED: GLUCOSE 40% GEL 15 GM TUBE PO PRN (15:42)
[2025-04-18] MEDS ORDERED: DEXTROSE 50% 50 ML SYRINGE IV PRN (15:42)
[2025-04-18] MEDS ORDERED: GLUCAGON FOR INJ 1 MG VIAL SQ PRN (15:42)
[2025-04-18] MEDS: MAGNESIUM SULFATE / D5W 1 GM/100 ML BAG IV SCH (15:56)
[2025-04-18] MEDS ORDERED: VANCOMYCIN CONSULT ACTIVE PRN (15:57)
[2025-04-18] MEDS: VANCOMYCIN HCL / NSS 1,000 MG/270 ML BAG IV SCH (17:11)
[2025-04-18] MEDS: INSULIN ASPART PER UNIT CHARGE SC SCH (17:45)
[2025-04-18] MEDS: PREGABALIN 150 MG CAP PO SCH (17:45)
[2025-04-18] MEDS: HYDROCORTISONE SOD 25 MG in SYRINGE 0 ML IV SCH (17:46)
[2025-04-18] MEDS ORDERED: ACETAMINOPHEN 500 MG TAB PO PRN (19:44)
--- NOTE | 2025-04-18 20:05 | Pharmacy Report ---
Pharmacy PK ABX Note - Date of Service April 18, 2025 - Assessment and Plan Assessment 64 year old M with complicated PMH who presented with nausea, weakness, fatigue, hot flashes, and nasal congestion. Leukocytosis (12.7) and elevated lactate. Patient expressed concerns of adrenal crisis with h/o panhypopituitarism. Of note, full H&P not avail at time of pharmacy consultation. Ordered empiric vancomycin and pip/tazo for possible skin and soft tissue infection. Plan Vancomycin * Loading dose: 2500 mg IV x 1 * Maintenance dose: 1500 mg IV every 12 hours * Regimen is predicted to achieve target AUC/CHIN of 400-600 mg/L.hr * Random level will be ordered if therapy is expected to continue beyond 48 hours or warranted by change in clinical status Pharmacy will continue to follow and will adjust dose/frequency as necessary. Thank you. Pharmacy has transitioned to AUC monitoring for vancomycin. AUC/CHIN is the preferred PK/PD target and is associated with decreased risk of nephrotoxicity compared to traditional trough targets.
[2025-04-18] MEDS: ACETAMINOPHEN 500 MG TAB PO SCH (20:16)
[2025-04-18] MEDS: ASPIRIN 81 MG ECTAB PO SCH (20:18)
[2025-04-18] MEDS: ATORVASTATIN 20 MG TAB PO SCH (20:18)
[2025-04-18] MEDS: BACLOFEN 20 MG TAB PO SCH (20:18)
[2025-04-18] MEDS: LIDOCAINE 5% 1 PATCH TD STA (20:19)
[2025-04-18] MEDS: MIRTAZAPINE TAB 15 MG TAB PO SCH (20:19)
[2025-04-18] MEDS: CYANOCOBALAMIN (B-12) 2,500 MCG TABLET PO SCH (20:20)
[2025-04-18] MEDS: APIXABAN 5 MG TABLET PO SCH (20:25)
[2025-04-18] MEDS: SERTRALINE HCL 100 MG TABLET PO SCH (20:25)
[2025-04-18] MEDS: SPIRONOLACTONE 25 MG TAB PO SCH (20:26)
[2025-04-18] MEDS: LIOTHYRONINE SODIUM 5 MCG TAB PO SCH (20:28)
[2025-04-18] MEDS: VANCOMYCIN HCL 2,500 MG in SODIUM CHLORIDE 0.9% 500 ML IV ONE (20:28)
[2025-04-18] MEDS: 4.5GM X1 IV ONE (20:28)
[2025-04-18 20:43] LABS: Appearance Urine Clear (Clear); Bacteria Urine Automated None Seen (None Seen); Epithelial Cell Urine Auto 0-2 /hpf (0-2); Glucose Urine UA Negative (Negative); RBC Urine Automated 0-2 /hpf (0-2); WBC Urine Automated 0-5 /hpf (0-5)
[2025-04-18] MEDS: ONDANSETRON INJ 2 MG/ML 2 ML VIAL IV PRN (21:14)
[2025-04-19] MEDS: PIPERACILLIN/TAZOBACTAM 4.5 GM/100 ML BAG IV SCH (01:35)
[2025-04-19] MEDS: VANCOMYCIN HCL 1,500 MG in SODIUM CHLORIDE 0.9% 500 ML IV SCH (05:25)
[2025-04-19] MEDS: LEVOTHYROXINE SODIUM 50 MCG TABLET PO SCH (05:30)
[2025-04-19] MEDS: LEVOTHYROXINE SODIUM 200 MCG TABLET PO SCH (05:30)
[2025-04-19 07:12] LABS: Anion Gap 8.0 (3-11); Blood Urea Nitrogen 9.0 mg/dl (6-23); Calcium 8.4 mg/dl (8.6-10.3); Carbon Dioxide 26.0 mmol/L (21-32); Chloride 101.0 mmol/L (98-107); Creatinine Clr Calc Pharmacy 102.8 ml/min; Glucose 148.0 mg/dl (70-99(Fasting)); Iron 27.0 mcg/dl (35-175); Magnesium 2.1 mg/dl (1.7-2.4); Potassium 4.2 mmol/L (3.5-5.1); Sodium 135.0 mmol/L (136-145); Total Iron Binding Cap Calc 276.0 mcg/dl (250-450); Transferrin 197.0 mg/dl (200-360); Transferrin (FE) Percent Satur 10.0 % (20-50)
[2025-04-19 07:13] LABS: Hematocrit (blood only) 46.6 % (42.0-52.0); Hemoglobin 14.1 g/dL (14.0-18.0); Mean Corpuscular Hemoglobin 22.2 pg (25.0-34.0); Mean Corpuscular Volume 73.5 fL (80.0-100.0); Platelet Count 171 K/uL (130-400); RDW Standard Deviation 56.2 fL (36.4-46.3); Red Blood Count 6.34 M/uL (4.70-6.10); White Blood Count 14.78 K/ul (4.8-10.8)
[2025-04-19 07:23] LABS: Anisocytosis Present; Immature Granulocytes # (auto) 0.17 K/uL (0.01-0.20); Immature Granulocytes % (auto) 1.2 %; Polychromasia 1+
[2025-04-19 07:32] LABS: Ferritin 23.8 ng/ml (8-388)
[2025-04-19 07:43] LABS: Folate (Folic Acid),Ser orPlas 8.95 ng/ml (>5.38)
[2025-04-19 07:44] LABS: Vitamin B12 1180.0 pg/ml (180-914)
[2025-04-19 07:50] LABS: Hemoglobin A1C 8.3 % (4.5-5.6)
[2025-04-19] MEDS: REMOVE LIDODERM PATCH SCH (08:13)
[2025-04-19] MEDS: HYDROmorphone INJ 0.5 MG/0.5 ML SYR IV PRN (10:49)
--- NOTE | 2025-04-19 14:11 | Hospitalist Progress Note ---
Date of Service April 19, 2025 Assessment & Plan (1) Sepsis: (2) Sacral wound: (3) Secondary adrenal insufficiency: (4) Panhypopituitarism: Plan This patient is a 64-year-old male with a history of panhypopituitarism, HTN, HLD, morbid obesity, TESS not on CPAP, vitamin D deficiency, chronic lower back pain with multiple surgeries, GERD, DM2, depression/anxiety, Hx of DVT in and PE in 2023 on Eliquis, lymphedema s/p lumbar spine surgeries, immobility, chronic venous stasis, iron deficiency anemia, urinary incontinence, osteoporosis, vitamin B12 deficiency, polyneuropathy, and RLS who presents to the ED with nausea, weakness, fatigue, hot flashes after having some nasal congestion - his normal symptoms of adrenal crisis. He has noticed some bloody drainage from an open wound on his buttocks. Initial eval with leukocytosis and an elevated lactate at 3.7. A respiratory BioFire was negative, CXR negative, UA without signs of infection. He will be admitted for adrenal insufficiency and monitoring for infection, likely infected sacral wound. #Sepsis-could be from infected sacral wound. UA without signs of infection, chest x-ray negative, BioFire negative. -continue broad spectrum abx with IV Zosyn and Vanco wound cx from sacrum pending Blood cultures negative at 24 hours Giving stress dose steroids -wound care consult, offload pressure from wound -follow CBC, BMP in AM #Acute on chronic lower back pain with spasms-from being rolled on to [facility] in ED. Received IV morphine, valium, robaxin. On chronic Bactrim prophylaxis for h/o spine infections -continue home buprenorphine SL bid, continue Lyrica -continue baclofen, oxycodone prn, dilaudid added for breakthrough -hold home Bactrim while on IV antibiotics that cover for Staph #Panhypopituitarism-follows with Endocrine-appreciate their recs. Pt recently weaned po HC to 5mg po tid from 10mg po tid -give IV HC 25mg IV q8 then taper down to po HC as per Endocrine note - pt prefers to stay on IV today -continue LT4 and Cytomel--> TSH expected to be low from central hypothyroidism and FT4 normal -takes testosterone IM at home -continue prednisone 1mg po tid and giving IV hydrocortisone stress dose steroids, then taper back to po HC #Hypomagnesemia-replace with IV mag Now repleted, 2.1 #HTN/HLD-BPs normal -continue ASA, statin, spironolactone #TESS not on CPAP-may need nocturnal O2 #GERD-continue PPI #DM2- last HgbA1C 8.3% - improved from prior, not well controlled. On chronic st eroids, follows with Endo -hold home semaglutide, metformin -give Novolog SSI -ADA diet, BSGs #Depression/anxiety-continue Remeron, sertraline #Hx of DVT in and PE in 2023 on Eliquis -continue Eliquis #iron deficiency anemia-microcytic anemia, hemoconcentrated currently Iron studies consistent with SINA follow as outpt and GI workup recommended #vitamin B12 deficiency/polyneuropathy/RLS-no acute issues -continue po Vit B12 DVT Proph-Eliquis Dispo-continued inpatient stay, awaiting culture data, clinical improvement attempted to call patient's , Teri but was sent to [facility] 04/19 Admission and Anticipated Discharge Date Admission Date: April 19, 2025 Supervising Physician Co-Signing Physician Notes SANDIP Supervision Note: I did not personally see or examine the patient today, but I verified all wilson points of SANDIP Lopez's assessment and plan with the following exceptions/additions: None Subjective Patient seen laying in bed - reports having alot of worsening of his chronic pain seconday to the increased movement and repositioning that he is doing in the hospital tolerating PO - but feels the IV steroids work better Did not exactly know he had a wound on his back Has multiple asstive devices at home - lift chair, stair lift, etc. Tele - SR PACs 70s Review of Systems Review of Systems: All systems reviewed & are unremarkable except as noted in Subjective Physical Exam Physical Exam: General: NAD, VS as above , appears uncomfortable Resp: normal respiratory effort, lungs clear to auscultation anteriorly CV: RRR, no murmur, Abd: normal bowel sounds, mild distention Extremities: Moves all extremities, 1+ edema b/l, very grown out toenails Neuro: A&O x3, Skin: wound to sacral area, with dime sized opening left of midline, no active drainage, but bandage was saturate with serosenginous drainage Results & Data Results & Data Vital Signs (Past 12 Hours) Vital Signs Temp Pulse Resp BP BP Pulse Ox O2 Del Method 04/19/25 11:29 98.4 F 82 20 109/64 91 Room Air 04/19/25 10:58 Room Air 04/19/25 07:35 98.8 F 78 16 113/64 91 Room Air 04/19/25 02:40 97.9 F 70 18 144/66 H 92 Room Air Laboratory Results cbc, chemistry reviewed B12, procal and A1c reviewed PG Care Time/CCT Total # of Minutes Spent Total Time Spent with Patient: Total time spent is greater than 50% in coordination of care (as documented) at patient's floor/unit and/or counseling patient: Coding Level of Care Code 63165 SUB INP/OBS CARE 3/50MIN Diagnoses Sepsis A41.9 Sacral wound S31.000A Secondary adrenal insufficiency E27.49 Panhypopituitarism E23.0
[2025-04-19] MEDS: [UNRECOGNIZED DRUG - OTHER] BUCCAL SCH (21:03)
--- NOTE | 2025-04-20 06:17 | Electrocardiogram Report ---
Test Reason : Blood Pressure : */* mmHG Vent. Rate : 86 BPM Atrial Rate : 86 BPM P-R Int : 184 ms QRS Dur : 84 ms QT Int : 370 ms P-R-T Axes : 55 59 58 degrees QTcB Int : 442 ms Sinus rhythm with Premature supraventricular complexes Cannot rule out Anterior infarct , age undetermined Abnormal ECG When compared with ECG of 07-Jan-2025 21:03, Premature supraventricular complexes are now Present Confirmed by Bruno Jones ([id number] on 04/20/2025 6:16:46 AM Referred By: REFERRED SELF Confirmed By: Bruno Jones
[2025-04-20 08:42] LABS: Hematocrit (blood only) 45.6 % (42.0-52.0); Hemoglobin 13.6 g/dL (14.0-18.0); Mean Corpuscular Hemoglobin 22.3 pg (25.0-34.0); Mean Corpuscular Volume 74.9 fL (80.0-100.0); Platelet Count 170 K/uL (130-400); RDW Standard Deviation 58.5 fL (36.4-46.3); Red Blood Count 6.09 M/uL (4.70-6.10); White Blood Count 9.04 K/ul (4.8-10.8)
[2025-04-20 08:47] LABS: Anion Gap 4.0 (3-11); Blood Urea Nitrogen 7.0 mg/dl (6-23); Calcium 8.7 mg/dl (8.6-10.3); Carbon Dioxide 30.0 mmol/L (21-32); Chloride 104.0 mmol/L (98-107); Creatinine Clr Calc Pharmacy 129.6 ml/min; Glucose 130.0 mg/dl (70-99(Fasting)); Magnesium 2.0 mg/dl (1.7-2.4); Potassium 4.2 mmol/L (3.5-5.1); Sodium 138.0 mmol/L (136-145)
[2025-04-20 09:05] LABS: Anisocytosis Present; Hypochromasia Present; Immature Granulocytes # (auto) 0.12 K/uL (0.01-0.20); Immature Granulocytes % (auto) 1.3 %; Ovalocytes 1+; Polychromasia 1+
[2025-04-20] MEDS: POLYETHYLENE (MIRALAX) 17 GM PACK PO PRN (11:28)
--- NOTE | 2025-04-20 14:22 | Hospitalist Progress Note ---
Date of Service April 20, 2025 Assessment & Plan (1) Sepsis: (2) Sacral wound: (3) Secondary adrenal insufficiency: (4) Panhypopituitarism: Plan This patient is a 64-year-old male with a history of panhypopituitarism, HTN, HLD, morbid obesity, TESS not on CPAP, vitamin D deficiency, chronic lower back pain with multiple surgeries, GERD, DM2, depression/anxiety, Hx of DVT in and PE in 2023 on Eliquis, lymphedema s/p lumbar spine surgeries, immobility, chronic venous stasis, iron deficiency anemia, urinary incontinence, osteoporosis, vitamin B12 deficiency, polyneuropathy, and RLS who presents to the ED with nausea, weakness, fatigue, hot flashes after having some nasal congestion - his normal symptoms of adrenal crisis. He has noticed some bloody drainage from an open wound on his buttocks. Initial eval with leukocytosis and an elevated lactate at 3.7. A respiratory BioFire was negative, CXR negative, UA without signs of infection. He will be admitted for adrenal insufficiency and monitoring for infection, likely infected sacral wound. #Sepsis-likely from infected sacral wound. UA without signs of infection, chest x-ray negative, BioFire negative. -continue broad spectrum abx with IV Zosyn and Vanco wound cx: staph and Pseudomonas - awaiting sensitivities Blood cultures negative at 24 hours Giving stress dose steroids -wound care consult, offload pressure from wound -follow CBC, BMP in AM #Acute on chronic lower back pain with spasms-from being rolled on to [facility] in ED. Received IV morphine, valium, robaxin. On chronic Bactrim prophylaxis for h/o spine infections -continue home buprenorphine SL bid, continue Lyrica -continue baclofen, oxycodone prn, dilaudid added for breakthrough -hold home Bactrim while on IV antibiotics that cover for Staph #Panhypopituitarism-follows with Endocrine-appreciate their recs. 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 On chronic steroids, follows with Endo -hold home semaglutide, metformin -give Novolog SSI BSG acceptable #Depression/anxiety-continue Remeron, sertraline #Hx of DVT in and PE in 2023 on Eliquis -continue Eliquis #iron deficiency anemia-microcytic anemia, hemoconcentrated currently Iron studies consistent with SINA follow as outpt and GI workup recommended #vitamin B12 deficiency/polyneuropathy/RLS-no acute issues -continue po Vit B12 DVT Proph-Eliquis Dispo-continued inpatient stay, awaiting culture data, clinical improvement update by phone 04/20 Admission and Anticipated Discharge Date Admission Date: April 19, 2025 Supervising Physician Co-Signing Physician Notes PA Supervision Note: I did not personally see or examine the patient today, but I verified all wilson points of SANDIP Lopez's assessment and plan with the following exceptions/additions: None Subjective patient seen lying in bed, pain is better controlled today he feels like his adrenal crisis symptoms are improving - feels like his thinking is clearer no fevers or chills over night Tele - SR 60s Review of Systems Review of Systems: All systems reviewed & are unremarkable except as noted in Subjective Physical Exam Physical Exam: General: NAD, VS as above , appears much more comfortable today Resp: normal respiratory effort, lungs clear to auscultation anteriorly CV: RRR, no murmur, Abd: normal bowel sounds, mild distention Extremities: Moves all extremities, 1+ edema b/l, very grown out toenails Neuro: A&O x3, Skin:wound not visualized today Results & Data Results & Data Vital Signs (Past 12 Hours) Vital Signs Temp Pulse Resp BP Pulse Ox O2 Del Method 04/20/25 11:46 97.5 F L 65 18 108/64 93 Room Air 04/20/25 07:38 97.7 F 59 L 18 115/62 90 Room Air 04/20/25 03:37 97.7 F 61 16 133/72 93 Room Air Laboratory Results cbc, chemistry and mag reviewed PG Care Time/CCT Total # of Minutes Spent Total Time Spent with Patient: Total time spent is greater than 50% in coordination of care (as documented) at patient's floor/unit and/or counseling patient: Coding Level of Care Code 82174 SUB INP/OBS CARE 3/50MIN Diagnoses Sepsis A41.9 Sacral wound S31.000A Secondary adrenal insufficiency E27.49 Panhypopituitarism E23.0
[2025-04-21 06:24] LABS: Creatinine Clr Calc Pharmacy 112.7 ml/min
[2025-04-21] MEDS: INFLUENZA VACC TS2025-26(65y+)/PF (IIV3) 0.5mL Syr IM ONE (09:23)
--- NOTE | 2025-04-21 12:18 | Hospitalist Progress Note ---
"Date of Service April 21, 2025 Assessment & Plan (1) Sepsis: (2) Sacral wound: (3) Secondary adrenal insufficiency: (4) Panhypopituitarism: Plan This patient is a 64-year-old male with a history of panhypopituitarism, HTN, HLD, morbid obesity, TESS not on CPAP, vitamin D deficiency, chronic lower back pain with multiple surgeries, GERD, DM2, depression/anxiety, Hx of DVT in and PE in 2023 on Eliquis, lymphedema s/p lumbar spine surgeries, immobility, chronic venous stasis, iron deficiency anemia, urinary incontinence, osteoporosis, vitamin B12 deficiency, polyneuropathy, and RLS who presents to the ED with nausea, weakness, fatigue, hot flashes after having some nasal congestion - his normal symptoms of adrenal crisis. He has noticed some bloody drainage from an open wound on his buttocks on 04/18/2025. #Sepsis (resolved) | Sacral Wound infection. likely from infected sacral wound. UA without signs of infection, chest x-ray negative, BioFire negative. BC neg at 48 hours. Wound culture + for MRSA & Pseudomonas. --> Discussed w/ pt 04/21 he would prefer to stay on IV abx while hospitalized w/ transition to PO abx on dc. Wound care nurse following - instructions include cleaning w/ saline & covering w/ Optifoam. #Acute on chronic lower back pain with spasms from being rolled on to gurney in ED. On chronic Bactrim prophylaxis for h/o spine infections (hold while on abx that cover staph) continue home buprenorphine SL bid, continue Lyrica continue baclofen, oxycodone prn, Dilaudid added for breakthrough #Panhypopituitarism follows with Endocrine outpatient. Endo consulted inpatient --> recommending hydrocortisone 20mg TID, continue home levothyroxine/liothyronine. Once discharged continue 2-3 more days of sick day dosing then self taper to 10mg TID if clinically stable. s/p IV hydrocortisone stress dosing --> transitioned to PO hydrocortisone 20mg TID & will have to taper down back to typical dosing. Continue on prednisone 1mg PO TID dosing (home dose) #Hypomagnesemia - resolved replace with IV mag Now repleted, 2.1 #HTN/HLD BPs normal continue ASA, statin, spironolactone #TESS not on CPAP-may need nocturnal O2 #GERD-continue PPI #DM2 last HgbA1C 8.3% - improved from prior, not well controlled. On chronic steroids, follows with Endo hold home semaglutide, metformin give Novolog SSI BSG acceptable #Depression/anxiety-continue Remeron, sertraline #Hx of DVT in and PE in 2023 on Eliquis-continue Eliquis #iron deficiency anemia - hgb stable. Iron studies consistent w/ SINA; rec follow up outpatient & GI workup. #vitamin B12 deficiency/polyneuropathy/RLS-no acute issues; continue po Vit B12 DVT Proph-Eliquis Dispo-continued inpatient stay, pending safe discharge plan. Admission and Anticipated Discharge Date Admission Date: April 19, 2025 Supervising Physician Co-Signing Physician Notes SANDIP Supervision Note: I did not personally see or examine the patient today, but I verified all wilson points of SANDIP Ralph's assessment and plan with the following exceptions/additions: None Subjective Mahesh was seen & examined this morning while working with therapy. He reports he was having low back pain & muscle spasms but mentioned they were not severe as usual. He reports feeling comfortable being transitioned to PO hydrocortisone. He denied any additional complaints. Physical Exam Physical Exam: General: NAD, VS: BP 130/69; P63; R18; T36.6C Resp: normal respiratory effort Extremities: Moves all extremities, no edema Neuro: A&O x3 Skin: intact, no lesions noted Results & Data Results & Data Vital Signs (Past 12 Hours) Vital Signs Temp Pulse Pulse Resp BP Pulse Ox O2 Del Method 04/21/25 11:07 36.7 C 64 16 126/62 92 Room Air 04/21/25 08:31 36.7 C 66 18 134/63 91 Room Air 04/21/25 07:25 58 L 04/21/25 03:48 36.6 C 56 L 16 117/65 93 Room Air PG Care Time/CCT Total # of Minutes Spent Total Time Spent with Patient: Total time spent is greater than 50% in coordination of care (as documented) at patient's floor/unit and/or counseling patient: Coding Level of Care Code 11641 SUB INP/OBS CARE 2/35MIN Diagnoses Sepsis A41.9 Sacral wound S31.000A Secondary adrenal insufficiency E27.49 Panhypopituitarism E23.0"
[2025-04-21] MEDS: HYDROCORTISONE 10 MG TAB PO SCH (13:05)
--- NOTE | 2025-04-21 15:17 | Pharmacy Report ---
Pharmacy PK ABX Note - Date of Service April 21, 2025 - Assessment and Plan Assessment 04/21: * Vancomycin level came back at ~15 mcg/ml - current dosing appropriate based upon level to achieve AUC/CHIN 400-600. Sacral cultures with MRSA and PA (surface culture only) 04/18: * 64 year old M with complicated PMH who presented with nausea, weakness, fatigue, hot flashes, and nasal congestion. Leukocytosis (12.7) and elevated lactate. Patient expressed concerns of adrenal crisis with h/o panhypopituitarism. Of note, full H&P not avail at time of pharmacy consultation. * Ordered empiric vancomycin and pip/tazo for possible skin and soft tissue infection. Plan Vancomycin * Maintenance dose: Continue 1500 mg IV every 12 hours Pharmacy will continue to follow and will adjust dose/frequency as necessary. Thank you. Pharmacy has transitioned to AUC monitoring for vancomycin. AUC/CHIN is the preferred PK/PD target and is associated with decreased risk of nephrotoxicity compared to traditional trough targets.
[2025-04-22 06:24] LABS: Hematocrit (blood only) 43.4 % (42.0-52.0); Hemoglobin 12.9 g/dL (14.0-18.0); Mean Corpuscular Hemoglobin 22.2 pg (25.0-34.0); Mean Corpuscular Volume 74.8 fL (80.0-100.0); Platelet Count 177 K/uL (130-400); RDW Standard Deviation 59.3 fL (36.4-46.3); Red Blood Count 5.80 M/uL (4.70-6.10); White Blood Count 13.15 K/ul (4.8-10.8)
[2025-04-22 06:44] LABS: Anion Gap 4 (3-11); Blood Urea Nitrogen 12 mg/dl (6-23); Calcium 8.9 mg/dl (8.6-10.3); Carbon Dioxide 32 mmol/L (21-32); Chloride 102 mmol/L (98-107); Creatinine Clr Calc Pharmacy 111.3 ml/min; Glucose 109 mg/dl (70-99(Fasting)); Sodium 138 mmol/L (136-145)
--- NOTE | 2025-04-22 12:32 | Hospitalist Progress Note ---
Date of Service April 22, 2025 Assessment & Plan (1) Sepsis: (2) Sacral wound: (3) Secondary adrenal insufficiency: (4) Panhypopituitarism: Plan This patient is a 64-year-old male with a history of panhypopituitarism, HTN, HLD, morbid obesity, TESS not on CPAP, vitamin D deficiency, chronic lower back pain with multiple surgeries, GERD, DM2, depression/anxiety, Hx of DVT in and PE in 2023 on Eliquis, lymphedema s/p lumbar spine surgeries, immobility, chronic venous stasis, iron deficiency anemia, urinary incontinence, osteoporosis, vitamin B12 deficiency, polyneuropathy, and RLS who presents to the ED with nausea, weakness, fatigue, hot flashes after having some nasal congestion - his normal symptoms of adrenal crisis. He has noticed some bloody drainage from an open wound on his buttocks on 04/18/2025. #Sepsis (resolved)/Sacral Wound infection/stage III pressure ulcer of the sacrum present on admission-seen by wound care, not down to the bone and no evidence of osteomyelitis. Wound on sacrum with drainage on admission likely source of infection. Wound cultures positive for MRSA resistant to Bactrim and pansensitive Pseudomonas. Blood cultures remain no growth to date. Leukocytosis now due to stress dose steroids and not worsening infection. Is afebrile. -Convert Zosyn and vancomycin to p.o. Cipro and p.o. doxycycline to complete a 14-day course on 05/02/2025 - Continue home Bactrim prophylaxis as he is now MRSA that is resistant to Bactrim-transition to doxycycline prophylaxis after completion of treatment -Wound care nurse following - instructions include cleaning w/ saline & covering w/ Optifoam. - Encouraged him to get out of bed to chair with all meals and offload pressure - Follow blood cultures-remain no growth to date -Follow CBC, BMP #Acute on chronic lower back pain with spasms-has a history of 16 surgeries on the back. Back to baseline control but still requesting IV Dilaudid for breakthrough. He recently was started on buprenorphine SL and does not feel it is helping much yet. -Continue home buprenorphine SL bid, continue Lyrica 4 times daily -Continue baclofen, oxycodone prn, Dilaudid added for breakthrough-increased to 1 mg IV - MiraLAX twice a day as needed for constipation-no bowel movement since the day of admission #Panhypopituitarism-follows with Endocrine-appreciate their consult. Pt recently weaned po HC to 5mg po tid from 10mg po tid as an outpatient. Received IV stress dose steroids here and now tapering down on p.o. hydrocortisone - Decrease p.o. HC down to 15 mg p.o. 3 times daily x 3 days, then down to 10 mg p.o. 3 times daily on 04/25, then 5 mg p.o. 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 On chronic steroids, follows with Endo. HgbA1c here is -hold home semaglutide, metformin from home - Continue Novolog SSI -ADA diet, BSGs #Depression/anxiety-continue Remeron, sertraline #Hx of DVT in and PE in 2023 on Eliquis -continue Eliquis #iron deficiency anemia-microcytic anemia, no acute bleeding from anywhere. Hgb stable at 12-13. Iron studies consistent with iron deficiency anemia with transferrin saturation 10%, ferritin only 23 - Allergic to IV iron - Will see if he can take oral iron but hold off for now given constipation -follow CBC - Follow-up as an outpatient-May need referral for endoscopies with GI #vitamin B12 deficiency/polyneuropathy/RLS-no acute issues -continue po Vit B12 DVT Proph-Eliquis Dispo-improving, converting to oral antibiotics, medically stable for discharge, [facility] DVT Proph-Eliquis Dispo-continued inpatient stay, pending safe discharge plan. Admission and Anticipated Discharge Date Admission Date: April 19, 2025 Subjective Patient has questions about his MRSA and what his treatment plan is. He is also requesting an increased dose of the breakthrough Dilaudid for pain to 1 mg. He is agreeable to switching to oral antibiotics. He reports that he usually gets out of bed to chair every day at home and uses a walker-discussed care with nursing to make sure he gets out of bed to the chair for meals. He has not moved his bowels since the day of admission and took MiraLAX today. Physical Exam Constitutional: WD/WN, vitals as above Neck: trachea midline, no thyromegaly Respiratory: normal respiratory effort, lungs clear to auscultation Cardiovascular: Rate/Rhythm: regular rate and regular rhythm Heart Sounds: no murmur Extremities: + edema (1+ pitting edema legs bilat) Chest (Breasts): Chest: normal inspection of chest Gastrointestinal (Abdomen): normal bowel sounds, soft, nontender, no hepatosplenomegaly Musculoskeletal: Extremities: extremities normal to inspection; no cyanosis and no clubbing Skin: + nail abnormality (multiple toenails wi th thickened, yellow nails) Neurologic: moves all extremities and awake; no focal motor deficits Psychiatric: A+Ox3, euthymic affect Results & Data Results & Data Vital Signs (Past 12 Hours) Vital Signs Temp Pulse Resp BP Pulse Ox O2 Del Method 04/22/25 08:00 Room Air 04/22/25 07:30 36.4 C L 57 L 16 134/67 93 Room Air Laboratory Results CBC, BMP, wound cultures, blood culture reviewed PG Care Time/CCT Total # of Minutes Spent Total Time Spent with Patient: Total time spent is greater than 50% in coordination of care (as documented) at patient's floor/unit and/or counseling patient: Coding Level of Care Code 64150 SUB INP/OBS CARE 2/35MIN Diagnoses Sepsis A41.9 Sacral wound S31.000A Secondary adrenal insufficiency E27.49 Panhypopituitarism E23.0
[2025-04-22] MEDS: HYDROCORTISONE 10 MG TAB PO SCH (13:34)
[2025-04-22] MEDS: HYDROmorphone INJ 0.5 MG/0.5 ML SYR IV PRN (18:29)
[2025-04-22] MEDS: HYDROmorphone INJ 0.5 MG/0.5 ML SYR IV STA ×2 (18:52→18:57)
[2025-04-22] MEDS: LORazepam Inj 1 MG in SYRINGE 0.5 ML IV STA (19:45)
[2025-04-22] MEDS: CIPROFLOXACIN 500 MG TAB PO SCH (22:23)
[2025-04-22] MEDS: DOXYCYCLINE HYCLATE 100 MG CAP PO SCH (22:23)
[2025-04-23 06:39] LABS: Anion Gap 5.0 (3-11); Blood Urea Nitrogen 14.0 mg/dl (6-23); Calcium 9.1 mg/dl (8.6-10.3); Carbon Dioxide 30.0 mmol/L (21-32); Chloride 102.0 mmol/L (98-107); Creatinine Clr Calc Pharmacy 123.2 ml/min; Glucose 130.0 mg/dl (70-99(Fasting)); Potassium 4.3 mmol/L (3.5-5.1); Sodium 137.0 mmol/L (136-145)
[2025-04-23 06:50] LABS: Anisocytosis Present; Hematocrit (blood only) 46.1 % (42.0-52.0); Hemoglobin 13.5 g/dL (14.0-18.0); Immature Granulocytes # (auto) 0.13 K/uL (0.01-0.20); Immature Granulocytes % (auto) 1.0 %; Mean Corpuscular Hemoglobin 22.0 pg (25.0-34.0); Mean Corpuscular Volume 75.1 fL (80.0-100.0); Platelet Count 185 K/uL (130-400); Polychromasia 2+; RDW Standard Deviation 58.6 fL (36.4-46.3); Red Blood Count 6.14 M/uL (4.70-6.10); White Blood Count 12.75 K/ul (4.8-10.8)
--- NOTE | 2025-04-23 10:47 | Hospitalist Progress Note ---
Date of Service April 23, 2025 Assessment & Plan (1) Sepsis: (2) Sacral wound: (3) Low back pain: (4) Secondary adrenal insufficiency: Plan This patient is a 64-year-old male with a history of panhypopituitarism, HTN, HLD, morbid obesity, TESS not on CPAP, vitamin D deficiency, chronic lower back pain with multiple surgeries, GERD, DM2, depression/anxiety, Hx of DVT in and PE in 2023 on Eliquis, lymphedema s/p lumbar spine surgeries, immobility, chronic venous stasis, iron deficiency anemia, urinary incontinence, osteoporosis, vitamin B12 deficiency, polyneuropathy, and RLS who presents to the ED with nausea, weakness, fatigue, hot flashes after having some nasal co ngestion - his normal symptoms of adrenal crisis. He noticed some bloody drainage from an open wound on his buttocks on 04/18/2025. #Sepsis (resolved)/Sacral Wound infection/stage III pressure ulcer of the sacrum present on admission-seen by wound care, not down to the bone and no evidence of osteomyelitis otherwise such as fevers, etc. Leukocytosis on admission likely because patient took stress dose steroids at home. No imaging necessary on sacrum. Wound on sacrum with drainage on admission likely source of infection. Wound cultures positive for MRSA resistant to Bactrim and pansensitive Pseudomonas. Blood cultures remain no growth to date. - Initially treated with 3 days of IV Zosyn and vancomycin-on 04/22, converted to p.o. Cipro and p.o. doxycycline to complete a 14-day course on 05/02/2025 - Will now discontinue home Bactrim prophylaxis given MRSA on culture that is resistant to Bactrim-transition to doxycycline prophylaxis after completion of treatment -Wound care nurse following - instructions include cleaning w/ saline & covering w/ Optifoam. - Encouraged him to get out of bed to chair with all meals and offload pressure - Follow blood cultures-remain no growth to date -Follow CBC, BMP periodically while on antibiotics # Severe acute on chronic lower back pain with spasms-has a history of 16 surgeries on the back. He recently was started on buprenorphine SL and does not feel it is helping much yet. He continues to have severe acute back spasms that cause him significant pain. He required multiple extra doses of IV Dilaudid and IV lorazepam for back spasms on the evening of 04/22 after being in the chair for 2-1/2 hours. He has been on chronic opioids for many years and likely has a high tolerance, however I am concerned about respiratory depression with high doses of opioids in conjunction with benzodiazepines-no evidence of respiratory depression at this time -Continue home buprenorphine SL bid, continue Lyrica 4 times daily -Increase baclofen to 20 mg p.o. 4 times daily (from home regimen of 3 times daily) -Continue oxycodone prn, and at patient request, will increase Dilaudid slightly to 1.5 mg IV every 4 hours as needed for severe breakthrough pain - Add Valium 5 mg p.o. twice daily as needed muscle spasms - MiraLAX twice a day as needed for constipation-no bowel movement since the day of admission #Panhypopituitarism-follows with Endocrine-appreciate their consult. Pt recently weaned po HC to 5mg po tid from 10mg po tid as an outpatient. Received IV stress dose steroids here and now tapering down on p.o. hydrocortisone - Decrease p.o. HC down again to 10 mg p.o. 3 times daily x 3 days, then down to 5 mg p.o. 3 times daily on 04/26 -continue LT4 and Cytomel--> TSH expected to be low from central hypothyroidism and FT4 here is normal -takes testosterone IM at home -continue prednisone 1mg po tid-unclear why he is on prednisone and hydrocortisone but this has been his regimen for many many years - Follow-up with endocrinology as an outpatient #HTN/HLD/lymphedema-BPs normal, renal function and electrolytes are acceptable. -continue ASA, statin, spironolactone #TESS not on CPAP-may need nocturnal O2-monitor - Consider overnight pulse oximetry prior to discharge from rehab #GERD-no acute issues - Continue PPI #DM2- last HgbA1C 9.2% and now down to 8.3%, not well controlled. On chronic steroids, follows with Endo. -hold home semaglutide, metformin from home - Continue Novolog SSI -ADA diet, BSGs - Follow-up with endocrinology after discharge #Depression/anxiety-no acute issues - Continue Remeron, sertraline #Hx of DVT in and PE in 2023 on Eliquis-no acute issues -continue Eliquis 5 mg p.o. twice daily #Iron deficiency anemia-microcytic anemia, no acute bleeding from anywhere. Hgb stable at 12-13. Iron studies consistent with iron deficiency anemia with transferrin saturation 10%, ferritin only 23 - Allergic to IV iron - Will see if he can take oral iron but hold off for now given ongoing opioid- induced constipation -follow CBC - Follow-up as an outpatient-May need referral for endoscopies with GI #vitamin B12 deficiency/polyneuropathy/RLS-no acute issues -continue po Vit B12 DVT Proph-Eliquis Dispo-plan is to discharge to shelter facility when bed available and insurance authorization obtained. While he is otherwise medically stable for discharge, he continues to request IV pain medication which may prohibit discharge to rehab facility at this time Admission and Anticipated Discharge Date Admission Date: April 19, 2025 Subjective Patient improved through the night but continues to complain of increased frequency of severe lower back spasms that sometimes go down his left lower extremity. He thinks he was out of bed to the chair for too long yesterday because it was 2-1/2 hours. His chair at home allows him to recline backwards with the upper portion of the chair and ours did not allow that. He shows me a typed up report that says that in the past, his pain regimen in the hospital was supposed to be Dilaudid 5 mg IV x 1 followed by a morphine [employer] at 3-5 mg every 6 to 10 minutes. He asks if this can be his regimen and I absolutely declined. No other acute concerns. Physical Exam Constitutional: WD/WN, vitals as above Neck: trachea midline, no thyromegaly Respiratory: normal respiratory effort, lungs clear to auscultation Cardiovascular: Rate/Rhythm: regular rate and regular rhythm Heart Sounds: no murmur Extremities: + edema (1+ pitting edema legs bilat) Chest (Breasts): Chest: normal inspection of chest Gastrointestinal (Abdomen): normal bowel sounds, soft, nontender, no hepatosplenomegaly Musculoskeletal: Extremities: extremities normal to inspection; no cyanosis and no clubbing Neurologic: moves all extremities and awake; no focal motor deficits Psychiatric: A+Ox3, euthymic affect Results & Data Results & Data Vital Signs (Past 12 Hours) Vital Signs Temp Pulse Resp BP Pulse Ox O2 Del Method 04/23/25 07:08 36.4 C L 65 18 137/72 93 Room Air 04/23/25 07:03 Room Air 04/22/25 22:45 36.4 C L 66 18 125/72 93 Room Air Laboratory Results CBC, BMP, blood cultures, wound culture reviewed. PG Care Time/CCT Total # of Minutes Spent Total Time Spent with Patient: Total time spent is greater than 50% in coordination of care (as documented) at patient's floor/unit and/or counseling patient: Coding Level of Care Code 62682 SUB INP/OBS CARE 2/35MIN Diagnoses Sepsis A41.9 Sacral wound S31.000A Low back pain M54.50 Back pain laterality: unspecified Chronicity: acute Sciatica presence: unspecified whether sciatica present Secondary adrenal insufficiency E27.49 (3) Low back pain Back pain laterality: unspecified Chronicity: acute Sciatica presence: unspecified whether sciatica present Qualified Code(s): M54.50 - Low back pain, unspecified
[2025-04-23] MEDS: BACLOFEN 20 MG TAB PO SCH (12:18)
[2025-04-23] MEDS: HYDROCORTISONE 10 MG TAB PO SCH (14:23)
[2025-04-23] MEDS: HYDROmorphone INJ 2 MG/ML SYR/VIAL IV PRN (14:28)
[2025-04-24 06:27] LABS: Hematocrit (blood only) 44.2 % (42.0-52.0); Hemoglobin 13.1 g/dL (14.0-18.0); Mean Corpuscular Hemoglobin 22.2 pg (25.0-34.0); Mean Corpuscular Volume 74.8 fL (80.0-100.0); Platelet Count 172 K/uL (130-400); RDW Standard Deviation 58.4 fL (36.4-46.3); Red Blood Count 5.91 M/uL (4.70-6.10); White Blood Count 10.29 K/ul (4.8-10.8)
[2025-04-24 06:28] LABS: Anisocytosis Present; Immature Granulocytes # (auto) 0.12 K/uL (0.01-0.20); Immature Granulocytes % (auto) 1.2 %; Polychromasia 1+
[2025-04-24 06:29] LABS: Anion Gap 6.0 (3-11); Blood Urea Nitrogen 14.0 mg/dl (6-23); Calcium 8.7 mg/dl (8.6-10.3); Carbon Dioxide 29.0 mmol/L (21-32); Chloride 103.0 mmol/L (98-107); Creatinine Clr Calc Pharmacy 120.0 ml/min; Glucose 116.0 mg/dl (70-99(Fasting)); Potassium 4.0 mmol/L (3.5-5.1); Sodium 138.0 mmol/L (136-145)
--- NOTE | 2025-04-24 11:37 | Hospitalist Progress Note ---
Date of Service April 24, 2025 Assessment & Plan (1) Sepsis: (2) Sacral wound: (3) Low back pain: (4) Secondary adrenal insufficiency: Plan This patient is a 64-year-old male with a history of panhypopituitarism, HTN, HLD, morbid obesity, TESS not on CPAP, vitamin D deficiency, chronic lower back pain with multiple surgeries, GERD, DM2, depression/anxiety, Hx of DVT in and PE in 2023 on Eliquis, lymphedema s/p lumbar spine surgeries, immobility, chronic venous stasis, iron deficiency anemia, urinary incontinence, osteoporosis, vitamin B12 deficiency, polyneuropathy, and RLS who presents to the ED with nausea, weakness, fatigue, hot flashes after having some nasal co ngestion - his normal symptoms of adrenal crisis. He noticed some bloody drainage from an open wound on his buttocks on 04/18/2025. #Sepsis (resolved)/Sacral Wound infection/stage III pressure ulcer of the sacrum present on admission-seen by wound care, not down to the bone and no evidence of osteomyelitis otherwise such as fevers, etc. Leukocytosis on admission likely because patient took stress dose steroids at home. No imaging necessary on sacrum. Wound cultures positive for MRSA resistant to Bactrim and pansensitive Pseudomonas. Blood cultures remain no growth, finalized. - Initially treated with 3 days of IV Zosyn and vancomycin-on 04/22, converted to p.o. Cipro and p.o. doxycycline to complete a 14-day course on 05/02/2025 - Will now discontinue home Bactrim prophylaxis given MRSA on culture that is resistant to Bactrim-transition to doxycycline prophylaxis after completion of treatment -Wound care nurse following - instructions include cleaning w/ saline & covering w/ Optifoam. - Encouraged him to get out of bed to chair with all meals and offload pressure # Severe acute on chronic lower back pain with spasms-has a history of 16 surgeries on the back. He recently was started on buprenorphine SL and does not feel it is helping much yet. He continues to have severe acute back spasms that cause him significant pain. He required multiple extra doses of IV Dilaudid and IV lorazepam for back spasms on the evening of 04/22 after being in the chair for 2-1/2 hours. He has been on chronic opioids for many years and likely has a high tolerance, however I am concerned about respiratory depression with high doses of opioids in conjunction with benzodiazepines-no evidence of respiratory depression at this time -Continue home buprenorphine SL bid, continue Lyrica 4 times daily -Increase baclofen to 20 mg p.o. 4 times daily (from home regimen of 3 times daily) -Continue oxycodone prn, and at patient request,continue Dilaudid 1.5 mg IV every 4 hours as needed for severe breakthrough pain - Add Valium 5 mg p.o. twice daily as needed muscle spasms - MiraLAX twice a day as needed for constipation-no bowel movement since the day of admission, PO dulcolax added today #Panhypopituitarism-follows with Endocrine-appreciate their recs. Pt recently weaned po HC to 5mg po tid from 10mg po tid as an outpatient. Received IV stress dose steroids here and now tapering down on p.o. hydrocortisone - Decrease p.o. HC down again to 10 mg p.o. 3 times daily x 3 days, then down to 5 mg p.o. 3 times daily on 04/26 -continue LT4 and Cytomel--> TSH expected to be low from central hypothyroidism and FT4 here is normal -takes testosterone IM at home -continue prednisone 1mg po tid-unclear why he is on prednisone and hydrocortisone but this has been his regimen for many many years - Follow-up with endocrinology as an outpatient #HTN/HLD/lymphedema-BPs normal, renal function and electrolytes are acceptable. -continue ASA, statin, spironolactone #TESS not on CPAP #GERD- Continue PPI #DM2- last HgbA1C 9.2% and now down to 8.3%, not well controlled. On chronic steroids, follows with Endo. -hold home semaglutide, metformin from home - Continue Novolog SSI -ADA diet, BSGs - Follow-up with endocrinology after discharge #Depression/anxiety-no acute issues - Continue Remeron, sertraline #Hx of DVT in and PE in 2023 on Eliquis-no acute issues -continue Eliquis 5 mg p.o. twice daily #Iron deficiency anemia-microcytic anemia, no acute bleeding from anywhere. Hgb stable at 12-13. Iron studies consistent with iron deficiency anemia with transferrin saturation 10%, ferritin only 23. Allergic to IV iron - Will see if he can take oral iron but hold off for now given ongoing opioid- induced constipation - Follow-up as an outpatient-May need referral for endoscopies with GI #vitamin B12 deficiency/polyneuropathy/RLS-no acute issues -continue po Vit B12 DVT Proph-Eliquis Dispo-awaiting safe discharge dispo Admission and Anticipated Discharge Date Admission Date: April 19, 2025 Supervising Physician Co-Signing Physician Notes Attending Attestation - Chart reviewed, care plan d/w SANDIP Lopez. I agree w/ the wilson components of her documentation. Lupillo Guzman MD Subjective Patient seen resting in bed. still has not had a bowel movement since coming to the hospital, takes miralax at home as needed pain is relatively controlled - trying to figure out the timing of his therapy so he knows when to take pain medications Review of Systems Review of Systems: All systems reviewed & are unremarkable except as noted in Subjective Physical Exam Physical Exam: General: NAD, VS as above , appears comfortable Resp: normal respiratory effort, lungs clear to auscultation anteriorly CV: RRR, no murmur, Abd: normal bowel sounds, mild distention Neuro: A&O x3, Skin:wound not visualized today Results & Data Results & Data Vital Signs (Past 12 Hours) Vital Signs Temp Pulse Pulse Resp BP Pulse Ox O2 Del Method 04/24/25 08:00 97.5 F L 60 61 16 135/71 98 Room Air 04/24/25 07:05 Room Air Laboratory Results cbc and chemistry reviewed PG Care Time/CCT Total # of Minutes Spent Total Time Spent with Patient: Total time spent is greater than 50% in coordination of care (as documented) at patient's floor/unit and/or counseling patient: Coding Level of Care Code 09697 SUB INP/OBS CARE 3/50MIN Diagnoses Sepsis A41.9 Sacral wound S31.000A Low back pain M54.50 Back pain laterality: unspecified Chronicity: acute Sciatica presence: unspecified whether sciatica present Secondary adrenal insufficiency E27.49 (3) Low back pain Back pain laterality: unspecified Chronicity: acute Sciatica presence: unspecified whether sciatica present Qualified Code(s): M54.50 - Low back pain, unspecified
[2025-04-25 07:51] VITALS: PULSE 60; RESP 16; O2SAT 96
[2025-04-25 08:31] VITALS: TEMP 98.2
[2025-04-25] MEDS: DOCUSATE SODIUM/SENNA 50/8.6MG TAB PO SCH (08:49)
--- NOTE | 2025-04-25 10:48 | Discharge Summary ---
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 He noticed some bloody drainage from an open wound on his buttocks on 04/18/2025. #Sepsis (resolved)/Sacral Wound infection/stage III pressure ulcer of the sacrum present on admission-seen by wound care, not down to the bone and no evidence of osteomyelitis otherwise such as fevers, etc. Leukocytosis on admission likely because patient took stress dose steroids at home. No imaging necessary on sacrum. Wound cultures positive for MRSA resistant to Bactrim and pansensitive Pseudomonas. Blood cultures remain no growth, finalized. Initially treated with 3 days of IV Zosyn and vancomycin-on 04/22, converted to p.o. Cipro and p.o. doxycycline to complete a 14-day course on 05/02/2025. Will remain on doxycyline prohylaxis BID after this given MRSA resistant to Bactrim. Wound care instructions include cleaning w/ saline & covering w/ Optifoam. PT/OT rec rehab, patient declined and elects for home with today. # Severe acute on chronic lower back pain with spasms-has a history of 16 surgeries on the back. He recently was started on buprenorphine SL and does not feel it is helping much yet. He continues to have severe acute back spasms that cause him significant pain. Continue home buprenorphine SL bid, continue Lyrica 4 times daily. Was receving increased increase baclofen to 20 mg p.o. 4 times daily (from home regimen of 3 times daily), oxycodone QID and prn diluadid and prn valium during hospital stay. Given 4 extra pills of oxycodone and baclofen on discharge for acute pain over the next few days to be used with his home regimen. MiraLAX twice a day as needed for constipation-no bowel movement since the day of admission - very active bowel sounds #Panhypopituitarism-follows with Endocrine-appreciate their recs. Pt recently weaned po HC to 5mg po tid from 10mg po tid as an outpatient. Received IV stress dose steroids here and now tapering down on p.o. hydrocortisone - 10 mg p.o. 3 times daily x 3 days, then down to 5 mg p.o. 3 times daily on 04/26. Continue LT4 and Cytomel. Continue prednisone. Follow-up with endocrinology as an outpatient #HTN/HLD/lymphedema-continue ASA, statin, spironolactone #TESS not on CPAP #GERD- Continue PPI #DM2- last HgbA1C 9.2% and now down to 8.3%, not well controlled. On chronic steroids, follows with Endo. Resume home meds. Follow-up with endocrinology after discharge #Depression/anxiety- Continue Remeron, sertraline #Hx of DVT in and PE in 2023 on Eliquis-continue Eliquis 5 mg p.o. twice daily #Iron deficiency anemia-microcytic anemia, no acute bleeding from anywhere. Hgb stable at 12-13. Iron studies consistent with iron deficiency anemia with transferrin saturation 10%, ferritin only 23. Allergic to IV iron. Resume home Fe supplementation. Consider GI referral for possible scopes. #vitamin B12 deficiency/polyneuropathy/RLS-no acute issues -continue po Vit B12 dispo - home with HH today Notes For Next Care Provider switch bactrim prohylaxis to doxycyline given MRSA resistent to doxy Admission HPI Per Admitting Provider This patient is a 64-year-old male with a history of panhypopituitarism, HTN, HLD, morbid obesity, TESS not on CPAP, vitamin D deficiency, chronic lower back pain with multiple surgeries, GERD, DM2, depression/anxiety, Hx of DVT in and PE in 2023 on Eliquis, lymphedema s/p lumbar spine surgeries, immobility, chronic venous stasis, iron deficiency anemia, urinary incontinence, osteoporosis, vitamin B12 deficiency, polyneuropathy, and RLS who presents to the ED with nausea, weakness, fatigue, hot flashes after having some nasal congestion. He took an extra dose of hydrocortisone 15 mg prior to coming. He feels he has the symptoms when he is having an adrenal crisis while getting sick from something. He has noticed some bloody drainage from an open wound on his buttocks. He had some acute on chronic exacerbation of his lower back pain with spasms down the leg after being rolled onto the stretcher in the ED. His vital signs were normal, he was afebrile, and had leukocytosis and an elevated lactate at 3.7. A respiratory BioFire was negative, CXR negative, UA had not yet been collected. There was concern for adrenal insufficiency and possible early sepsis without a source. He was given a dose of IV cefepime and IV hydrocortisone. He will be admitted for adrenal insufficiency and monitoring for infection, likely infected sacral wound. Discharge Exam General: NAD, VS as above , appears comfortable Resp: normal respiratory effort, lungs clear to auscultation anteriorly CV: RRR, no murmur, Abd: normal bowel sounds, mild distention Neuro: A&O x3, Discharge Plan Discharge Items Patient Disposition: Home - Home Health Services Reason For Visit: Adrenal insufficiency Discharge Diagnosis: sacral wound Condition on Discharge: Good Activity: As commented below Activity Comment: work with therapy to get stronger Weightbearing: Full weightbearing Non-emergency contact: Primary Care Provider Call non-emergency contact if: you have any medication questions and your symptoms worsen Follow-up/Referrals: David Jacob DO [Primary Care Provider] - 05/01/25 3:00 pm (follow up within one week ) Sallie Shore MD [Physician] - 06/22/25 3:00 pm (follow up within one month ) Diet: Carb Consistent or DM2 Addtl Attending Provider Instructions: Mr. Hughes, You were hospitalized after an adrenal crisis found to be from a sacral wound. Thankfully the wound has not progressed to the bone and you can be on oral antibiotics. These are cipro and doxycyline through 05/02. Your Bactrim has been discontinued because of resistance that has developed to the Bactrim and will switch to taking doxycycline twice daily after completion of treatment for the current infection. Wound care instructions include cleaning w/ saline & covering w/ Optifoam. Will give a few extra pills of baclofen and oxycodone to get you through the acute pain, that should be continuing to improve. Continue to work on your bowel regimen. Recs from endocrinology - continue hydrocortisone 10mg three times day today and then decrease to 5mg three times a day tomorrow. Follow up within 3-4 weeks. Please discuss with your PCP about starting an oral iron supplement when you constipation has improved. Activity: You can do normal everyday activities as your body allows. Take rest breaks if you feel tired. Do not overexert. Stop activity if you have pain, shortness of breath or feel dizzy. Follow-up appointments: Make an appointment with your primary care physician within one week of discharge. A copy of this summary will be sent to them. Every time you see your primary care physician, or any other doctor, bring your medication list, and a list of questions. CONTACT YOUR PRIMARY CARE PROVIDER if you experience any of the following: Shortness of breath or difficulty breathing Fevers or chills Feeling tired with normal activity or experiencing dizziness or fainting Difficulty following your treatment plan, or difficulty taking medications CALL 911 OR GO TO THE EMERGENCY DEPARTMENT if you experience any of the following: Severe abdominal pain or nausea/vomiting Severe chest pain, or chest pain that radiates (moves) to your jaw or arm Sudden, severe shortness of breath or difficulty breathing Thank you for allowing us to participate in your care. Pending Studies at Discharge: No Stand-Alone Forms: My [facility], Smoking Cessation Medications and DC Order Prescriptions: New doxycycline hyclate 100 mg Capsule 100 mg PO BID Qty: 60 0RF oxycodone 10 mg tablet 10 mg PO DAILY Qty: 4 0RF Rx Instructions: for acute pain short term, can be used with chronic pain regimen baclofen 20 mg tablet 20 mg PO DAILY Qty: 4 0RF Rx Instructions: for acute pain, can be used with chronic pain regimen Continued levothyroxine 200 mcg tablet 200 mcg PO DAILYBB Qty: 90 1RF Rx Instructions: total dose 250 mirtazapine 7.5 mg tablet 7.5 mg PO HS Qty: 60 1RF oxycodone 5 mg tablet 10 mg PO TID PRN (Reason: pain) Qty: 42 0RF liothyronine 5 mcg tablet 5 mcg PO QPM Qty: 60 0RF spironolactone [Aldactone] 25 mg tablet 25 mg PO BID Qty: 60 5RF hydrocortisone 5 mg tablet 10 mg PO TID Qty: 540 1RF sertraline 100 mg tablet 100 mg PO TID Qty: 270 3RF Eliquis 5 mg tablet 5 mg PO BID 90 Days Qty: 60 0RF (DME) Exel Hypodermic [place] 25 gauge x 1" needle See Rx Instructions .Route Qty: 50 1RF Rx Instructions: use to inject testosterone baclofen 20 mg tablet 20 mg PO TID 90 Days Qty: 90 0RF lansoprazole 30 mg capsule,delayed release(DR/EC) 30 mg PO QAM prednisone 1 mg tablet 1 mg PO TID Qty: 90 3RF atorvastatin 20 mg tablet 20 mg PO HS Qty: 90 3RF semaglutide 2 mg/dose (8 mg/3 mL) pen injector 2 mg subcut Q7D Qty: 3 5RF Rx Instructions: Thursday metformin 500 mg tablet extended release 24 hr 1,000 mg PO BID Qty: 240 2RF buprenorphine HCl [Belbuca] 75 mcg film 150 mcg buccal Q12H acetaminophen 325 mg Tablet 650 mg PO Q4H PRN (Reason: fever or pain) Qty: 180 0RF (DME) blood-glucose meter [VeedMeTouch Ultra2 Meter] Misc See Rx Instructions .Route Qty: 1 0RF Rx Instructions: As directed polyethylene glycol 3350 [Miralax] 17 gram powder in packet 17 g PO BID PRN (Reason: Constipation) 30 Days Qty: 60 0RF (DME) OneTouch Ultra Test Strip See Rx Instructions .Route Qty: 100 0RF Rx Instructions: As directed aspirin 81 mg Tablet,Delayed Release (Dr/Ec) 81 mg PO HS Qty: 30 0RF levothyroxine 50 mcg tablet 50 mcg PO DAILYBB Qty: 30 0RF (DME) BD Integra Syringe 3 mL 25 gauge x 1" syringe See Rx Instructions .Route Qty: 100 0RF Rx Instructions: inject teterone every 7 days (DME) lancets [OneTouch UltraSoft 2 Lancet] 30 gauge misc See Rx Instructions .Route Qty: 100 0RF Rx Instructions: As directed (DME) Wheeled Walker Misc See Rx Instructions .Route Qty: 1 0RF Rx Instructions: As directed with seat mecobalamin (vitamin B12) 1,000 mcg tablet,chewable 5,000 mcg PO QPM Qty: 30 0RF ferrous gluconate 324 mg (37.5 mg iron) tablet 324 mg PO Q OTHER DAY cholecalciferol (vitamin D3) 1,250 mcg (50,000 unit) capsule 1,250 mcg PO WK testosterone cypionate 200 mg/mL syringe 120 mg subcut DIRECTED Rx Instructions: Inject 120mg every 10 days Discontinued sulfamethoxazole-trimethoprim [Bactrim] 400-80 mg tablet 1 tab PO DAILY Qty: 60 0RF No Action pregabalin 150 mg capsule 150 mg PO QID Qty: 120 1RF Discharge Orders: Discharge Order (Routine); Ordered 04/25/25 Ordered By: Melody Ortez/Other Patient Handouts: Nutrition for Wound Healing, Managing Type 2 Diabetes, Special Foot Care for Diabetes Admission Data Admit Date/Time: 04/18/25 14:32 Attending Provider: Lupillo Guzman Admit Provider: Gia Campa Primary Care Provider: David Jacob Other Providers: [facility] Other Interventions: Discharge Summary Assessment (RN) Last Done: 04/25/25 11:20 Hospital Stay Data Consultations 04/18/25 12:44 ED Decision to Admit Stat Diagnostic Imagining Performed Chest X-Ray 04/18/25 09:42 XR chest 1V portable CLINICAL HISTORY: weakness COMPARISON STUDY: 01/06/2025 FINDINGS: Thoracic metallic fusion again seen. Heart size and pulmonary vasculature are normal. Inspiration is shallow. No consolidation or pleural effusion seen. No pneumothorax. IMPRESSION: No acute findings. ACT 112: Negative or not required by law. Electronically signed by: Jake Martinez M.D. 04/18/2025 10:05 AM Pending Results Patient Have Any Pending Studies at Discharge: No Discharge Instructions Given to Patient (Per Discharging Provider) Mr. Hughes, You were hospitalized after an adrenal crisis found to be from a sacral wound. Thankfully the wound has not progressed to the bone and you can be on oral antibiotics. These are cipro and doxycyline through 05/02. Your Bactrim has been discontinued because of resistance that has developed to the Bactrim and will switch to taking doxycycline twice daily after completion of treatment for the current infection. Wound care instructions include cleaning w/ saline & covering w/ Optifoam. Will give a few extra pills of baclofen and oxycodone to get you through the acute pain, that should be continuing to improve. Continue to work on your bowel regimen. Recs from endocrinology - continue hydrocortisone 10mg three times day today and then decrease to 5mg three times a day tomorrow. Follow up within 3-4 weeks. Please discuss with your PCP about starting an oral iron supplement when you constipation has improved. Activity: You can do normal everyday activities as your body allows. Take rest breaks if you feel tired. Do not overexert. Stop activity if you have pain, shortness of breath or feel dizzy. Follow-up appointments: Make an appointment with your primary care physician within one week of discharge. A copy of this summary will be sent to them. Every time you see your primary care physician, or any other doctor, bring your medication list, and a list of questions. CONTACT YOUR PRIMARY CARE PROVIDER if you experience any of the following: Shortness of breath or difficulty breathing Fevers or chills Feeling tired with normal activity or experiencing dizziness or fainting Difficulty following your treatment plan, or difficulty taking medications CALL 911 OR GO TO THE EMERGENCY DEPARTMENT if you experience any of the following: Severe abdominal pain or nausea/vomiting Severe chest pain, or chest pain that radiates (moves) to your jaw or arm Sudden, severe shortness of breath or difficulty breathing Thank you for allowing us to participate in your care. Supervising Physician Co-Signing Physician Notes Attending Attestation and Discharge Note: Chart reviewed, discharge care plan d/w SANDIP Lopez. I agree w/ the wilson components of her discharge documentation. Of note - I did not perform a bedside visit or exam on day of discharge. 64yo male with panhypopituitarism, HTN, morbid obesity, TESS not on CPAP, chronic lower back pain with multiple surgeries, GERD, DM2, depression/anxiety, Hx of DVT in and PE in 2023 on Eliquis, immobility, chronic venous stasis, iron deficiency anemia, urinary incontinence, osteoporosis, vitamin B12 deficiency, polyneuropathy, and RLS who presented with nausea, weakness, fatigue, hot flashes, and bloody drainage from an open wound on his buttocks on 04/18/2025. He had evidence of sepsis at time of presentation/admission likely due to a sacral wound. Seen by wound care - wound in sacrum was a stage 3 pressure ulcer. Wound cultures from the sacrum grew MRSA and pansensitive pseudomonas. Treated with IV zosyn/vanco x 3 days, then transitioned to PO Cipro & doxycycline. Blood cx's neg while here. Did receive stress-dose steroids for his panhypopituitarism while hospitalized. At discharge given wound care instructions for the sacral wound. Rehab advised by PT/OT but patient declined such. Thus, returning home with home health services. Lupillo Guzman MD Total Time Total Time Spent Total Time Spent (In Minutes): Time spent day of discharge 40 minutes including direct patient care, medication reconciliation, documentation, review of labs and images, and coordination of care. Coding Level of Care Code 02234 INP/OBS DISCH >30 MIN Diagnoses Sepsis A41.9 Sacral wound S31.000A Low back pain M54.50 Back pain laterality: unspecified Chronicity: acute Sciatica presence: unspecified whether sciatica present Secondary adrenal insufficiency E27.49
[2025-04-25 11:21] VITALS: BP 144/66
== END 2025-04-25 11:43 | disposition home health service (06) | DRG 871 ==
LOC: SUATTDRO → 2S 09:06 → ED 09:06 → 2S 15:19 → SUATTDRO 04-19 10:31 → 3E 04-21 23:02